=== PATIENT | female | born 1950 | race Two or more races ===

== ENCOUNTER 2017-08-21 08:51 | Emergency (ER) | payer MEDICARE, MEDICAID ==
[2017-08-21 09:08] VITALS: BP 170/85
[2017-08-21] MEDS ORDERED: Sodium Chloride 0.9% 10 ML Syringe FLUSH PRN (09:09)
[2017-08-21] MEDS ORDERED: Sodium Chloride 0.9% 2.5 ML Syringe FLUSH PRN (09:09)
[2017-08-21] MEDS ORDERED: Ketorolac 30 MG/ML SDV IVPUSH ONE (09:50)
[2017-08-21] MEDS ORDERED: Lactated Ringers 1,000 ML IV ONE (09:50)
--- NOTE | 2017-08-21 10:04 | CR ---
EXAMINATION: Left knee HISTORY: Pain COMPARISON: None TECHNIQUE: 3 views FINDINGS/IMPRESSION: Left total knee hardware is demonstrated in good position and alignment without evidence of loosening. There is no fracture or acute osseous abnormality demonstrated. Moderate to [place] suprapatellar joint effusion is noted.
[2017-08-21 10:11] LABS: CHLORIDE,CL 102 mmol/L (98-107); SODIUM,NA 139 mmol/L (136-145)
--- NOTE | 2017-08-21 10:49 | EDM.PDOC ---
ED HPI GENERAL MEDICAL PROBLEM - General Chief Complaint: Lower Extremity Injury/Pain Stated Complaint: FALL/L KNEE PAIN Time Seen by Provider: 08/21/17 09:11 Source of Information: Reports: Patient History Limitations: Reports: No Limitations - History of Present Illness INITIAL COMMENTS - FREE TEXT/NARRATIVE: History of present illness: []Patient was about to take a shower around 10 PM last night and woke up on the bathroom floor this morning hearing her stating it's 5:00. She is brought in by a friend complaining of left knee pain and no other complaints. His has not happened in the past patient denies any headache, neck pain or body aches. Review of systems: As per history of present illness and below otherwise all systems reviewed and negative. Past medical history: As per history of present illness and as reviewed below otherwise noncontributory. Surgical history: As per history of present illness and as reviewed below otherwise noncontributory. Social history: No reported history of drug or alcohol abuse. Family history: As per history of present illness and as reviewed below otherwise noncontributory. Physical exam: General: Well developed, well nourished in NAD HEENT: Atraumatic, normocephalic, pupils reactive, negative for conjunctival pallor or scleral icterus, mucous membranes moist, throat clear, neck supple, nontender, trachea midline. Lungs: Clear to auscultation, breath sounds equal bilaterally, chest nontender. Heart: S1S2, regular, negative for clicks, rubs, or JVD. Abdomen: Soft, nondistended, nontender. Negative for masses or hepatosplenomegaly. Negative for costovertebral tenderness. Pelvis: Stable nontender. Genitourinary: Deferred. Rectal: Deferred. Extremities: Atraumatic, negative for cords or calf pain. Neurovascular unremarkable. Neuro: Awake, alert, oriented. Cranial nerves II through XII unremarkable. Cerebellum unremarkable. Motor and sensory unremarkable throughout. Exam nonfocal. Diagnostics: []X-ray left knee negative, EKG paced rhythm no acute ischemia, CBC elevated white count 19,000 no shift, CPK 64, chemistry is normal, UA normal Therapeutics: []IV hydrated, Toradol for pain Impression: [] fAll, knee contusion left Plan: []Follow-up with primary care return if symptoms worsen Definitive disposition and diagnosis as appropriate pending reevaluation and review of above. Left Knee Pain Score (Numeric/FACES): 9 - Related Data Allergies Allergy/AdvReac Type Severity Reaction Status Date / Time codeine Allergy Intermediate Airway Verified 08/21/17 09:08 Tightness meperidine HCl [From Demerol] Allergy Intermediate Airway Verified 08/21/17 09: 08 Tightness morphine Allergy Intermediate Airway Verified 08/21/17 09:08 Tightness oxycodone [Oxycodone] Allergy Intermediate Airway Verified 08/21/17 09:08 Tightness orphenadrine Allergy Airway Verified 08/21/17 09:08 Tightness varenicline tartrate Allergy Airway Verified 08/21/17 09:08 [From Chantix] Tightness Home Meds: Home Meds DULoxetine HCl [Duloxetine HCl] 2 tab PO BEDTIME 12/22/13 [History] Gabapentin [Neurontin] 600 tab PO TID 12/22/13 [History] Apixaban [Eliquis] 1 tab PO BID 08/14/15 [History] Cyclobenzaprine HCl 1 tab PO TID 08/14/15 [History] Fluticasone/Salmeterol [Advair Diskus 500-50] 1 puff INH ASDIRECTED PRN [History] Ipratropium/Albuterol Sulfate [Combivent Respimat Inhal [place]] 1 puff INH ASDIRECTED PRN 08/14/15 [History] LORazepam 2 mg PO BEDTIME 08/14/15 [History] Levalbuterol Tartrate [Xopenex Hfa] 1 puff INH ASDIRECTED PRN 08/14/15 [History] Mometasone Furoate [Nasonex [place]] 1 spray NASBOTH ASDIRECTED PRN 08/14/15 [ History] diphenhydrAMINE HCl [Diphenhydramine HCl] 3 tab PO BEDTIME 08/14/15 [History] traMADol HCl [Ultram] 100 mg PO TID 08/14/15 [History] Acetaminophen/HYDROcodone [[place] 325-5 MG] 1 - 2 tab PO Q4H PRN #60 tablet 08/15 [Rx] Diltiazem HCl [Cardizem Cd] 360 mg PO DAILY 08/21/17 [History] Esomeprazole [NexIUM] 40 mg PO DAILY 08/21/17 [History] Levalbuterol Tartrate [Xopenex Hfa] 2 puff INH Q4H PRN 08/21/17 [History] Multivitamin [Multivitamins] 1 tab PO DAILY 08/21/17 [History] Spironolact/Hydrochlorothiazid [Aldactazide 25-25] 1 tab PO DAILY 08/21/17 [ History] Valsartan [Diovan] 320 mg PO DAILY 08/21/17 [History] Past Medical History HEENT History: Reports: Allergic Rhinitis, Impaired Vision, Other (See Below) Other HEENT History: wears reading glasses Cardiovascular History: Reports: Afib, High Cholesterol, Hypertension Respiratory History: Reports: Bronchitis, Recurrent, COPD, SOB, Other (See Below ) Other Respiratory History: was tested for sleep apnea last week, no results yet Gastrointestinal History: Reports: Cholelithiasis, GERD Genitourinary History: Reports: None 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 No residual weakness, no intervention done except physical therapy Psychiatric History: Reports: Bipolar, Depression Endocrine/Metabolic History: Reports: Obesity/BMI 30+, Other (See Below) Other Endocrine/Metabolic History: states has 2 "lumps" on thyroid as noted on ultrasound Hematologic History: Reports: None Immunologic History: Reports: None Oncologic (Cancer) History: Reports: None Dermatologic History: Reports: None - Infectious Disease History Infectious Disease History: Reports: Measles - Past Surgical History Head Surgeries/Procedures: Reports: None HEENT Surgical History: Reports: Cataract Surgery GI Surgical History: Reports: Bariatric Procedure, Cholecystectomy Female Surgical History: Reports: None Neurological Surgical History: Reports: None Musculoskeletal Surgical History: Reports: Hip Replacement, Knee Replacement, ORIF Social & Family History - Family History Family Medical History: Noncontributory - Tobacco Use Smoking Status *Q: Current Every Day Smoker Years of Tobacco use: 42 Packs/Tins Daily: 1 - Caffeine Use Caffeine Use: Reports: Coffee - Alcohol Use Days Per Week of Alcohol Use: 0 - Recreational Drug Use Recreational Drug Use: No Review of Systems - Review of Systems Review Of Systems: See Below (See history of present illness) ED EXAM, GENERAL - Physical Exam Exam: See Below (History of present illness) Course - Vital Signs Last Recorded V/S: Last Vital Signs Temp 97.8 F 08/21/17 09:05 Pulse 73 08/21/17 09:05 Resp 20 08/21/17 09:05 BP 170/85 H 08/21/17 09:05 Pulse Ox 95 08/21/17 09:05 - Orders/Labs/Meds Orders: Active Orders 24 hr Category Date Time Status EKG Documentation Completion [RC] STAT Care 08/21/17 09:08 Active UA W/MICROSCOPIC [URIN] Stat Lab 08/21/17 11:15 Ordered Sodium Chloride 0.9% [Saline Flush] Med 08/21/17 09:09 Active 10 ml FLUSH ASDIRECTED PRN Sodium Chloride 0.9% [Saline Flush] Med 08/21/17 09:09 Active 2.5 ml FLUSH ASDIRECTED PRN Saline Lock Insert [OM.PC] Stat Oth 08/21/17 09:08 Ordered Medication Orders Sodium Chloride (Saline Flush) 10 ml FLUSH ASDIRECTED PRN PRN Reason: Keep Vein Open Sodium Chloride (Saline Flush) 2.5 ml FLUSH ASDIRECTED PRN PRN Reason: Keep Vein Open Labs: Laboratory Tests 08/21/17 08/21/17 08/21/17 Range/Units 09:19 09:19 11:15 WBC 19.49 H (4.0-11.0) K/uL RBC 4.78 (4.30-5.90) M/uL Hgb 14.7 (12.0-16.0) g/dL Hct 44.1 (36.0-46.0) % MCV 92.3 (80.0-98.0) fL MCH 30.8 (27.0-32.0) pg MCHC 33.3 (31.0-37.0) g/dL RDW Std Deviation 47.0 (28.0-62.0) fl RDW Coeff of Brittny 14 (11.0-15.0) % Plt Count 311 (150-400) K/uL MPV 11.30 (7.40-12.00) fL Add Manual Diff YES Neutrophils % (Manual) 67 (48.0-80.0) % Band Neutrophils % 1 % Lymphocytes % (Manual) 22 (16.0-40.0) % Monocytes % (Manual) 8 (0.0-15.0) % Eosinophils % (Manual) 2 (0.0-7.0) % Nucleated RBC % 0.0 /100WBC Absolute Seg Neuts 13.1 H (1.4-5.7) Band Neutrophils # 0.2 Lymphocytes # (Manual) 4.3 H (0.6-2.4) Monocytes # (Manual) 1.6 H (0.0-0.8) Eosinophils # (Manual) 0.4 (0.0-0.7) Nucleated RBCs # 0 K/uL Sodium 139 (136-145) mmol/L Potassium 3.8 (3.5-5.1) mmol/L Chloride 102 (98-107) mmol/L Carbon Dioxide 28.2 (21.0-32.0) mmol/L BUN 16 (7.0-18.0) mg/dL Creatinine 0.8 (0.6-1.0) mg/dL Est Cr Clr Drug Dosing 57.22 mL/min Estimated GFR (MDRD) > 60.0 ml/min Glucose 92 (74-106) mg/dL Calcium 9.5 (8.5-10.1) mg/dL Total Bilirubin 0.4 (0.2-1.0) mg/dL AST 13 L (15-37) IU/L ALT 34 (14-63) IU/L Alkaline Phosphatase 153 H (46-116) U/L Creatine Kinase 64 (26-308) U/L Troponin I < 0.050 (0.000-0.056) ng/mL Total Protein 7.2 (6.4-8.2) g/dL Albumin 3.7 (3.4-5.0) g/dL Globulin 3.5 (2.0-3.5) g/dL Albumin/Globulin Ratio 1.1 L (1.3-2.8) Urine Color YELLOW Urine Appearance CLEAR Urine pH 6.0 (5.0-8.0) Ur Specific [place] 1.020 (1.001-1.035) Urine Protein NEGATIVE (NEGATIVE) mg/dL Urine Glucose (UA) NEGATIVE (NEGATIVE) mg/dL Urine Ketones NEGATIVE (NEGATIVE) mg/dL Urine Occult Blood NEGATIVE (NEGATIVE) Urine Nitrite NEGATIVE (NEGATIVE) Urine Bilirubin NEGATIVE (NEGATIVE) Urine Urobilinogen 0.2 (<2.0) EU/dL Ur Leukocyte Esterase NEGATIVE (NEGATIVE) Urine RBC 0-1 (0-2/HPF) Urine WBC 0-1 (0-5/HPF) Ur Epithelial Cells RARE (NONE-FEW) Urine Bacteria RARE (NEGATIVE) Meds: Medications Generic Name Dose Route Start Last Admin Trade Name Freq PRN Reason Stop Dose Admin Sodium Chloride 10 ml 08/21/17 09:09 Saline Flush FLUSH ASDIRECTED PRN Keep Vein Open Sodium Chloride 2.5 ml 08/21/17 09:09 Saline Flush FLUSH ASDIRECTED PRN Keep Vein Open Discontinued Medications Generic Name Dose Route Start Last Admin Trade Name Freq PRN Reason Stop Dose Admin Lactated Ringer's 1,000 mls @ 999 mls/hr 08/21/17 09:50 08/21/17 10:12 Ringers, Lactated IV 08/21/17 10:50 999 mls/hr .BOLUS ONE Administration Ketorolac Tromethamine 30 mg 08/21/17 09:50 08/21/17 10:13 Toradol IVPUSH 08/21/17 09:51 30 mg ONETIME ONE Administration Departure - Departure Time of Disposition: 12:03 Disposition: Home, Self-Care 01 Condition: Good Clinical Impression: Fall, Contusion of left knee - Discharge Information Referrals: Meghna Irby DO [Primary Care Provider] - Forms: ED Department Discharge Additional Instructions: The following information is given to patients seen in the emergency department who are being discharged to home. This information is to outline your options for follow-up care. We provide all patients seen in our emergency department with a follow-up referral. The need for follow-up, as well as the timing and circumstances, are variable depending upon the specifics of your emergency department visit. If you don't have a primary care physician on staff, we will provide you with a referral. We always advise you to contact your personal physician following an emergency department visit to inform them of the circumstance of the visit and for follow-up with them and/or the need for any referrals to a consulting specialist. The emergency department will also refer you to a specialist when appropriate. This referral assures that you have the opportunity for follow-up care with a specialist. All of these measure are taken in an effort to provide you with optimal care, which includes your follow-up. Under all circumstances we always encourage you to contact your private physician who remains a resource for coordinating your care. When calling for follow-up care, please make the office aware that this follow-up is from your recent emergency room visit. If for any reason you are refused follow-up, please contact the [facility] Emergency Department at and asked to speak to the emergency department charge nurse. [place] for pain ice to knee follow-up primary care return if symptoms worsen or change. [facility] [address] [place] [address] - My Orders Last 24 Hours: My Active Orders 08/21/17 09:08 EKG Documentation Completion [RC] STAT Saline Lock Insert [OM.PC] Stat 08/21/17 09:09 Sodium Chloride 0.9% [Saline Flush] 10 ml FLUSH ASDIRECTED PRN Sodium Chloride 0.9% [Saline Flush] 2.5 ml FLUSH ASDIRECTED PRN 08/21/17 11:15 UA W/MICROSCOPIC [URIN] Stat - Assessment/Plan Last 24 Hours: My Active Orders 08/21/17 09:08 EKG Documentation Completion [RC] STAT Saline Lock Insert [OM.PC] Stat 08/21/17 09:09 Sodium Chloride 0.9% [Saline Flush] 10 ml FLUSH ASDIRECTED PRN Sodium Chloride 0.9% [Saline Flush] 2.5 ml FLUSH ASDIRECTED PRN 08/21/17 11:15 UA W/MICROSCOPIC [URIN] Stat
== END 2017-08-21 12:28 | disposition home or self-care (01) ==
LOC: MW.ED 08:51
DX: S80.02XA Contusion of left knee, initial encounter (principal); E78.00 Pure hypercholesterolemia, unspecified; I10 Essential (primary) hypertension; K21.9 Gastro-esophageal reflux disease without esophagitis; E66.9 Obesity, unspecified; F17.210 Nicotine dependence, cigarettes, uncomplicated; Z88.5 Allergy status to narcotic agent; Z88.8 Allergy status to other drugs, medicaments and biological substances; Z79.899 Other long term (current) drug therapy; W18.30XA Fall on same level, unspecified, initial encounter
CPT/HCPCS: 36415; 73562-26-LT; 73562-LT; 80053; 81001; 82550; 84484; 85025; 93005; 96365; 96375; 99284-25; J1885; J7120

== ENCOUNTER 2019-09-07 10:52 | Inpatient (IN) | payer MEDICARE, MEDICAID ==
--- NOTE | 2019-09-07 11:08 | EDM.PDOC ---
ED HPI GENERAL MEDICAL PROBLEM - General Chief Complaint: Neurological Problem Stated Complaint: STROKE CODE Time Seen by Provider: 09/07/19 11:04 Source of Information: Reports: Patient History Limitations: Reports: No Limitations - History of Present Illness INITIAL COMMENTS - FREE TEXT/NARRATIVE: This is a 69-year-old female who presents to the emergency room after slipping out of her wheelchair and striking the back of her head. Patient has been progressively weak over the last 2 days. She denies any other problems Onset: Today Duration: Minutes: Location: Reports: Head, Lower Extremity, Right Severity: Moderate Improves with: Reports: None Worsens with: Reports: None Associated Symptoms: Reports: No Other Symptoms RIGHT HIP Pain Score (Numeric/FACES): 6 - Related Data Allergies Allergy/AdvReac Type Severity Reaction Status Date / Time codeine Allergy Intermediate Airway Verified 09/07/19 11:02 Tightness meperidine HCl [From Demerol] Allergy Intermediate Airway Verified 09/07/19 11: 02 Tightness morphine Allergy Intermediate Airway Verified 09/07/19 11:02 Tightness oxycodone [Oxycodone] Allergy Intermediate Airway Verified 09/07/19 11:02 Tightness orphenadrine Allergy Airway Verified 09/07/19 11:02 Tightness varenicline tartrate Allergy Airway Verified 09/07/19 11:02 [From Chantix] Tightness Home Meds: Home Meds DULoxetine HCl [Duloxetine HCl] 2 tab PO BEDTIME 12/22/13 [History] Gabapentin [Neurontin] 600 tab PO TID 12/22/13 [History] Apixaban [Eliquis] 1 tab PO BID 08/14/15 [History] Cyclobenzaprine HCl 1 tab PO TID 08/14/15 [History] Fluticasone/Salmeterol [Advair Diskus 500-50] 1 puff INH ASDIRECTED PRN [History] Ipratropium/Albuterol Sulfate [Combivent Respimat 20-100 Mcg] 1 puff INH ASDIRECTED PRN 08/14/15 [History] LORazepam 2 mg PO BEDTIME 08/14/15 [History] Levalbuterol Tartrate [Xopenex Hfa] 1 puff INH ASDIRECTED PRN 08/14/15 [History] Mometasone Furoate [Nasonex [place]] 1 spray NASBOTH ASDIRECTED PRN 08/14/15 [ History] diphenhydrAMINE HCL [Diphenhydramine HCl] 3 tab PO BEDTIME 08/14/15 [History] traMADol HCl [Ultram] 100 mg PO TID 08/14/15 [History] Acetaminophen/HYDROcodone [[place] 325-5 MG] 1 - 2 tab PO Q4H PRN #60 tablet 08/15 [Rx] Diltiazem HCl [Cardizem Cd] 360 mg PO DAILY 08/21/17 [History] Esomeprazole [NexIUM] 40 mg PO DAILY 08/21/17 [History] Levalbuterol Tartrate [Xopenex Hfa] 2 puff INH Q4H PRN 08/21/17 [History] Multivitamin [Multivitamins] 1 tab PO DAILY 08/21/17 [History] Spironolact/Hydrochlorothiazid [Aldactazide 25-25] 1 tab PO DAILY 08/21/17 [ History] Valsartan [Diovan] 320 mg PO DAILY 08/21/17 [History] Past Medical History HEENT History: Reports: Allergic Rhinitis, Impaired Vision, Other (See Below) Other HEENT History: wears reading glasses Cardiovascular History: Reports: Afib, High Cholesterol, Hypertension Respiratory History: Reports: Bronchitis, Recurrent, COPD, SOB, Other (See Below ) Other Respiratory History: was tested for sleep apnea last week, no results yet Gastrointestinal History: Reports: Cholelithiasis, GERD Genitourinary History: Reports: None [employer] History: Reports: None Musculoskeletal History: Reports: Arthritis, Fracture, Osteoporosis Other Musculoskeletal History: states chronic back and right hip pain, hx of fx right wrist and right tib-fib, wheelchair bound due to hip pain and major SOB Neurological History: Reports: TIA Other Neuro History: has has TIA x2, 2009 and 2013. No residual weakness, no intervention done except physical therapy Psychiatric History: Reports: Bipolar, Depression Endocrine/Metabolic History: Reports: Obesity/BMI 30+, Other (See Below) Other Endocrine/Metabolic History: states has 2 "lumps" on thyroid as noted on ultrasound Hematologic History: Reports: None Immunologic History: Reports: None Oncologic (Cancer) History: Reports: None Dermatologic History: Reports: None - Infectious Disease History Infectious Disease History: Reports: Measles - Past Surgical History Head Surgeries/Procedures: Reports: None HEENT Surgical History: Reports: Cataract Surgery GI Surgical History: Reports: Bariatric Procedure, Cholecystectomy Female Surgical History: Reports: None Neurological Surgical History: Reports: None Musculoskeletal Surgical History: Reports: Hip Replacement, Knee Replacement, ORIF Social & Family History - Family History Family Medical History: Noncontributory - Caffeine Use Caffeine Use: Reports: Coffee ED ROS GENERAL - Review of Systems Review Of Systems: See Below Constitutional: Reports: No Symptoms HEENT: Reports: No Symptoms Respiratory: Reports: No Symptoms Cardiovascular: Reports: No Symptoms Endocrine: Reports: No Symptoms GI/Abdominal: Reports: No Symptoms : Reports: No Symptoms Musculoskeletal: Reports: No Symptoms Skin: Reports: No Symptoms Neurological: Reports: Headache Psychiatric: Reports: No Symptoms Hematologic/Lymphatic: Reports: No Symptoms Immunologic: Reports: No Symptoms - Physical Exam Exam: See Below Exam Limited By: No Limitations General Appearance: Alert, WD/WN, No Apparent Distress Eye Exam: Bilateral Eye: Normal Fundi, Normal Inspection Ears: Normal External Exam, Normal Canal, Hearing Grossly Normal, Normal TMs Nose: Normal Inspection, Normal Mucosa, No Blood Throat/Mouth: Normal Inspection, Normal Lips, Normal Teeth, Normal Oropharynx, Normal Voice, No Airway Compromise Head Exam: Atraumatic, Normocephalic Neck: Normal Inspection, Supple, Non-Tender Respiratory/Chest: No Respiratory Distress, Lungs Clear, Normal Breath Sounds, No Accessory Muscle Use Cardiovascular: Normal Peripheral Pulses, Regular Rate, Rhythm, No Edema, No Gallop, No JVD, No Murmur GI/Abdominal: Normal Bowel Sounds, Soft, Non-Tender, No Distention, No Abnormal Bruit Rectal (Female) Exam: Deferred Neuro Exam (Abbreviated): Alert, Oriented, CN II-XII Intact, Normal Cognition, Normal Reflexes, No Motor/Sensory Deficits Back Exam: Normal Inspection, Full Range of Motion Extremities: Normal Inspection, Normal Range of Motion, No Pedal Edema, Normal Capillary Refill Psychiatric: Normal Affect, Normal Mood Skin Exam: Warm, Dry, Intact, Normal Color EKG INTERPRETATION Rhythm: NSR (Atrial paced rhythm, LVH with secondary re-pole, no evidence of acute FL.) [place]: Normal QRS: Normal ST-T: Normal QT: Normal Course - Vital Signs Text/Narrative:: 68-year-old female initially came in for possible syncope/patient fell while in a wheelchair struck her bottom and struck her head. Patient states she feels weak. Patient found to have urinary tract infection. Patient is somewhat dehydrated. Patient will be admitted to telemetry obvious with a depth diagnosis of near syncope/UTI/dehydration. I have talking to Dr. Borrego. Patient will be admitted with IV antibiotics and fluids and blood cultures Last Recorded V/S: Last Vital Signs Temp 96.6 F L 09/07/19 10:57 Pulse 62 09/07/19 12:07 Resp 16 09/07/19 12:07 BP 117/76 09/07/19 12:07 Pulse Ox 96 09/07/19 12:07 - Orders/Labs/Meds Orders: Active Orders 24 hr Category Date Time Status EKG Documentation Completion [RC] STAT Care 09/07/19 10:55 Active CULTURE BLOOD [BC] Stat Lab 09/07/19 13:53 Ordered CULTURE BLOOD [BC] Stat Lab 09/07/19 13:53 Ordered CULTURE URINE [RM] Stat Lab 09/07/19 13:00 Received Sodium Chloride 0.9% [Normal Saline] 1,000 ml Med 09/07/19 14:00 Active IV ASDIRECTED cefTRIAXone [Rocephin] 1 gm Med 09/07/19 13:49 Active Sodium Chloride 0.9% [Normal Saline] 50 ml IV ONETIME Blood Culture x2 Reflex Set [OM.PC] Stat Oth 09/07/19 13:53 Ordered Medication Orders Ceftriaxone Sodium 1 gm/ (Sodium Chloride) 50 mls @ 200 mls/hr IV ONETIME ONE Stop: 09/07/19 14:03 Sodium Chloride (Normal Saline) 1,000 mls @ 150 mls/hr IV ASDIRECTED [facility] Labs: Laboratory Tests 09/07/19 09/07/19 09/07/19 Range/Units 11:07 11:07 11:07 WBC 11.90 H (4.0-11.0) K/uL RBC 4.50 (4.30-5.90) M/uL Hgb 13.6 (12.0-16.0) g/dL Hct 42.1 (36.0-46.0) % MCV 93.6 (80.0-98.0) fL MCH 30.2 (27.0-32.0) pg MCHC 32.3 (31.0-37.0) g/dL RDW Std Deviation 47.2 (28.0-62.0) fl RDW Coeff of Brittny 14 (11.0-15.0) % Plt Count 322 (150-400) K/uL MPV 11.00 (7.40-12.00) fL Neut % (Auto) 58.6 (48.0-80.0) % Lymph % (Auto) 30.6 (16.0-40.0) % [place] % (Auto) 8.9 (0.0-15.0) % Eos % (Auto) 1.5 (0.0-7.0) % Baso % (Auto) 0.4 (0.0-1.5) % Neut # (Auto) 7.0 H (1.4-5.7) K/uL Lymph # (Auto) 3.6 H (0.6-2.4) K/uL [place] # (Auto) 1.1 H (0.0-0.8) K/uL Eos # (Auto) 0.2 (0.0-0.7) K/uL Baso # (Auto) 0.1 (0.0-0.1) K/uL Nucleated RBC % 0.0 /100WBC Nucleated RBCs # 0 K/uL INR 1.01 Sodium 132 L (136-145) mmol/L Potassium 5.1 (3.5-5.1) mmol/L Chloride 98 (98-107) mmol/L Carbon Dioxide 23.3 (21.0-32.0) mmol/L BUN 40 H (7.0-18.0) mg/dL Creatinine 3.1 H (0.6-1.0) mg/dL Est Cr Clr Drug Dosing 16.26 mL/min Estimated GFR (MDRD) 14.9 ml/min Glucose 121 H (74-106) mg/dL Calcium 8.9 (8.5-10.1) mg/dL Magnesium (1.8-2.4) mg/dL Total Bilirubin 0.4 (0.2-1.0) mg/dL AST 24 (15-37) IU/L ALT 33 (14-63) IU/L Alkaline Phosphatase 158 H (46-116) U/L Troponin I < 0.050 (0.000-0.056) ng/mL Total Protein 7.6 (6.4-8.2) g/dL Albumin 3.4 (3.4-5.0) g/dL Globulin 4.2 H (2.6-4.0) g/dL Albumin/Globulin Ratio 0.8 L (0.9-1.6) Urine Color Urine Appearance Urine pH (5.0-8.0) Ur Specific [place] (1.001-1.035) Urine Protein (NEGATIVE) mg/dL Urine Glucose (UA) (NEGATIVE) mg/dL Urine Ketones (NEGATIVE) mg/dL Urine Occult Blood (NEGATIVE) Urine Nitrite (NEGATIVE) Urine Bilirubin (NEGATIVE) Urine Urobilinogen (<2.0) EU/dL Ur Leukocyte Esterase (NEGATIVE) U Hyaline Cast (Auto) (0-2/LPF) Urine RBC (0-2/HPF) Urine WBC (0-5/HPF) Ur Epithelial Cells (NONE-FEW) Amorphous Sediment (NEGATIVE) Urine Bacteria (NEGATIVE) Urine Mucus (NONE-MOD) 09/07/19 09/07/19 Range/Units 11:07 13:00 WBC (4.0-11.0) K/uL RBC (4.30-5.90) M/uL Hgb (12.0-16.0) g/dL Hct (36.0-46.0) % MCV (80.0-98.0) fL MCH (27.0-32.0) pg MCHC (31.0-37.0) g/dL RDW Std Deviation (28.0-62.0) fl RDW Coeff of Brittny (11.0-15.0) % Plt Count (150-400) K/uL MPV (7.40-12.00) fL Neut % (Auto) (48.0-80.0) % Lymph % (Auto) (16.0-40.0) % [place] % (Auto) (0.0-15.0) % Eos % (Auto) (0.0-7.0) % Baso % (Auto) (0.0-1.5) % Neut # (Auto) (1.4-5.7) K/uL Lymph # (Auto) (0.6-2.4) K/uL [place] # (Auto) (0.0-0.8) K/uL Eos # (Auto) (0.0-0.7) K/uL Baso # (Auto) (0.0-0.1) K/uL Nucleated RBC % /100WBC Nucleated RBCs # K/uL INR Sodium (136-145) mmol/L Potassium (3.5-5.1) mmol/L Chloride (98-107) mmol/L Carbon Dioxide (21.0-32.0) mmol/L BUN (7.0-18.0) mg/dL Creatinine (0.6-1.0) mg/dL Est Cr Clr Drug Dosing mL/min Estimated GFR (MDRD) ml/min Glucose (74-106) mg/dL Calcium (8.5-10.1) mg/dL Magnesium 2.1 (1.8-2.4) mg/dL Total Bilirubin (0.2-1.0) mg/dL AST (15-37) IU/L ALT (14-63) IU/L Alkaline Phosphatase (46-116) U/L Troponin I (0.000-0.056) ng/mL Total Protein (6.4-8.2) g/dL Albumin (3.4-5.0) g/dL Globulin (2.6-4.0) g/dL Albumin/Globulin Ratio (0.9-1.6) Urine Color YELLOW Urine Appearance SLT CLOUDY Urine pH 5.5 (5.0-8.0) Ur Specific [place] 1.025 (1.001-1.035) Urine Protein NEGATIVE (NEGATIVE) mg/dL Urine Glucose (UA) NEGATIVE (NEGATIVE) mg/dL Urine Ketones NEGATIVE (NEGATIVE) mg/dL Urine Occult Blood NEGATIVE (NEGATIVE) Urine Nitrite NEGATIVE (NEGATIVE) Urine Bilirubin NEGATIVE (NEGATIVE) Urine Urobilinogen 0.2 (<2.0) EU/dL Ur Leukocyte Esterase TRACE H (NEGATIVE) U Hyaline Cast (Auto) 0-2 (0-2/LPF) Urine RBC 0-2 (0-2/HPF) Urine WBC 5-8 (0-5/HPF) Ur Epithelial Cells MODERATE (NONE-FEW) Amorphous Sediment MODERATE (NEGATIVE) Urine Bacteria 3+ H (NEGATIVE) Urine Mucus LIGHT (NONE-MOD) Meds: Medications Generic Name Dose Route Start Last Admin Trade Name Freq PRN Reason Stop Dose Admin Ceftriaxone Sodium 1 gm/ 50 mls @ 200 mls/hr 09/07/19 13:49 Sodium Chloride IV 09/07/19 14:03 ONETIME ONE Sodium Chloride 1,000 mls @ 150 mls/hr 09/07/19 14:00 Normal Saline IV ASDIRECTED [facility] Departure - Departure Time of Disposition: 13:56 Disposition: Refer to Observation Condition: Fair Clinical Impression: Dehydration, moderate, Urinary tract infection, Near syncope - Discharge Information Forms: ED Department Discharge Sepsis Event Note - Evaluation Sepsis Screening Result: No Definite Risk - Focused Exam Vital Signs: Vital Signs Temp Pulse Resp BP Pulse Ox 09/07/19 12:07 62 16 117/76 96 09/07/19 10:57 96.6 F L 62 16 139/80 95 Date Exam was Performed: 09/07/19 Time Exam was Performed: 13:54 - My Orders Last 24 Hours: My Active Orders 09/07/19 10:55 EKG Documentation Completion [RC] STAT 09/07/19 13:00 CULTURE URINE [RM] Stat 09/07/19 13:49 cefTRIAXone [Rocephin] 1 gm Sodium Chloride 0.9% [Normal Saline] 50 ml IV ONETIME 09/07/19 13:53 CULTURE BLOOD [BC] Stat CULTURE BLOOD [BC] Stat Blood Culture x2 Reflex Set [OM.PC] Stat 09/07/19 14:00 Sodium Chloride 0.9% [Normal Saline] 1,000 ml IV ASDIRECTED - Assessment/Plan Last 24 Hours: My Active Orders 09/07/19 10:55 EKG Documentation Completion [RC] STAT 09/07/19 13:00 CULTURE URINE [RM] Stat 09/07/19 13:49 cefTRIAXone [Rocephin] 1 gm Sodium Chloride 0.9% [Normal Saline] 50 ml IV ONETIME 09/07/19 13:53 CULTURE BLOOD [BC] Stat CULTURE BLOOD [BC] Stat Blood Culture x2 Reflex Set [OM.PC] Stat 09/07/19 14:00 Sodium Chloride 0.9% [Normal Saline] 1,000 ml IV ASDIRECTED
[2019-09-07 12:01] LABS: BLOOD UREA NITROGEN,BUN 40 mg/dL (7.0-18.0); CARBON DIOXIDE,CO2 23.3 mmol/L (21.0-32.0); CHLORIDE,CL 98 mmol/L (98-107); GLUCOSE RANDOM 121 mg/dL (74-106); POTASSIUM,K 5.1 mmol/L (3.5-5.1); SODIUM,NA 132 mmol/L (136-145)
--- NOTE | 2019-09-07 12:09 | CR ---
Chest: Portable view of the chest was obtained. Comparison: No previous chest imaging is available. Heart size is normal. Upper mediastinum is within normal limits. Pacemaker is noted. Slight scarring or atelectasis is noted within the left base. Lungs otherwise are clear. Bony structures are grossly intact. Impression: 1. Atelectasis or scarring within the left lung base. 2. Pacemaker. 3. Nothing acute is appreciated. Diagnostic code #3 This report was dictated in MDT
--- NOTE | 2019-09-07 12:09 | CT ---
Head CT Technique: Multiple axial sections through the brain were obtained. Intravenous contrast was not utilized. Comparison: Prior head CT study of 09/02/17. Findings: Ventricles are moderately dilated. Sulci over the convexities are mildly prominent. Findings are felt compatible with stable atrophy with greater central component. No abnormal parenchymal densities are seen. No evidence of intracranial hemorrhage. No midline shift or mass-effect is seen. Bone window settings were reviewed. Visualized mastoid sinuses show nothing acute. Visualized paranasal sinuses show nothing acute. No acute calvarial abnormality is appreciated. Impression: 1. Generalized atrophy with greater central component. 2. No acute intracranial abnormality is appreciated. No significant change is appreciated from prior head CT study. Diagnostic code #2 This report was dictated in MDT
--- NOTE | 2019-09-07 12:09 | CR ---
Right hip: AP and very slight frog-leg lateral view of the right hip was obtained. Comparison: Previous pelvis and right hip exam of 11/25/17. Right hip prosthesis is seen which has a long prosthetic stem. No hardware fracture is appreciated. Bony structures are osteopenic. No acute bony abnormality is appreciated. Lucency is noted at the glue bone interface proximally which is believed to be due to chronic postsurgical change and of no acute significance. Impression: 1. Right hip prosthesis as described above. 2. Nothing acute is appreciated. Diagnostic code #2 This report was dictated in MDT
[2019-09-07] MEDS ORDERED: cefTRIAXone 1 GM in Sodium Chloride 0.9% 50 ML IV ONE (13:49)
[2019-09-07] MEDS ORDERED: Sodium Chloride 0.9% 1,000 ML IV SCH (14:00)
[2019-09-07] MEDS ORDERED: Ondansetron 4 MG/2 ML SDV IVPUSH PRN (15:02)
[2019-09-07] MEDS ORDERED: Albuterol/Ipratropium 3.0-0.5 MG/3 ML Neb Soln NEB PRN (15:35)
[2019-09-07] MEDS: Sodium Chloride 0.9% 1,000 ML IV SCH (15:36)
[2019-09-07] MEDS: cefTRIAXone 1 GM in Premix Bag 1 BAG IV SCH (15:37)
[2019-09-07] MEDS ORDERED: Acetaminophen 325 MG Tab PO PRN (15:41)
--- NOTE | 2019-09-07 15:43 | PCM.HP.2 ---
H&P History of Present Illness - General Date of Service: 09/07/19 Admit Problem/Dx: Admission Diagnosis/Problem Admission Diagnosis/Problem Urinary tract infection - History of Present Illness Initial Comments - Free Text/Narative: Patient is a 69 y/o F with PMH of HTN, TIA, Hip replacement, thyroid nodules, diverticulosis, comes in after an epiosde of pre-syncope. Reportedly patient fell from her wheelchair and hit her head. in the ER, CT scan head didn't show any acute stroke, troponin was negative, labs were significant for KEVAN and UA showed UTI. Right hip xray was negative for fracture. Patient is being admitted to hospital for further management. Patient was lethargic during my encounter and couldn't contribute much to history. RIGHT HIP Pain Score (Numeric/FACES): 6 - Related Data Allergies/Adverse Reactions: Allergies Allergy/AdvReac Type Severity Reaction Status Date / Time codeine Allergy Intermediate Airway Verified 09/07/19 11:02 Tightness meperidine HCl [From Demerol] Allergy Intermediate Airway Verified 09/07/19 11: 02 Tightness morphine Allergy Intermediate Airway Verified 09/07/19 11:02 Tightness oxycodone [Oxycodone] Allergy Intermediate Airway Verified 09/07/19 11:02 Tightness orphenadrine Allergy Airway Verified 09/07/19 11:02 Tightness varenicline tartrate Allergy Airway Verified 09/07/19 11:02 [From Chantix] Tightness Home Medications: Home Meds DULoxetine HCl [Duloxetine HCl] 120 mg PO BEDTIME 12/22/13 [History] Gabapentin [Neurontin] 600 tab PO TID 12/22/13 [History] Apixaban [Eliquis] 5 mg PO BID 08/14/15 [History] Cyclobenzaprine HCl 5 mg PO QID PRN 08/14/15 [History] LORazepam 2 mg PO TID PRN 08/14/15 [History] traMADol HCl [Ultram] 100 mg PO BID PRN 08/14/15 [History] Esomeprazole [NexIUM] 40 mg PO DAILY 08/21/17 [History] Spironolact/Hydrochlorothiazid [Aldactazide 25-25] 2 tab PO DAILY 08/21/17 [ History] dilTIAZem HCL [Cardizem Cd] 360 mg PO DAILY 08/21/17 [History] Hydrocodone/Acetaminophen [[place] 10-325 Tablet] 10 - 325 mg PO 6XDAY PRN [History] Olmesartan Medoxomil 40 mg PO DAILY 09/07/19 [History] hydrOXYzine pamoate [Hydroxyzine Pamoate] 25 mg PO TID PRN 09/07/19 [History] Past Medical History HEENT History: Reports: Allergic Rhinitis, Impaired Vision, Other (See Below) Other HEENT History: wears reading glasses Cardiovascular History: Reports: Afib, High Cholesterol, Hypertension Respiratory History: Reports: Bronchitis, Recurrent, COPD, SOB, Other (See Below ) Other Respiratory History: was tested for sleep apnea last week, no results yet Gastrointestinal History: Reports: Cholelithiasis, GERD Genitourinary History: Reports: None MONEY COUNTER History: Reports: None Musculoskeletal History: Reports: Arthritis, Fracture, Osteoporosis Other Musculoskeletal History: states chronic back and right hip pain, hx of fx right wrist and right tib-fib, wheelchair bound due to hip pain and major SOB Neurological History: Reports: TIA Other Neuro History: has has TIA x2, 2009 and 2013. No residual weakness, no intervention done except physical therapy Psychiatric History: Reports: Bipolar, Depression Endocrine/Metabolic History: Reports: Obesity/BMI 30+, Other (See Below) Other Endocrine/Metabolic History: states has 2 "lumps" on thyroid as noted on ultrasound Hematologic History: Reports: None Immunologic History: Reports: None Oncologic (Cancer) History: Reports: None Dermatologic History: Reports: None - Infectious Disease History Infectious Disease History: Reports: Measles - Past Surgical History Head Surgeries/Procedures: Reports: None HEENT Surgical History: Reports: Cataract Surgery GI Surgical History: Reports: Bariatric Procedure, Cholecystectomy Female Surgical History: Reports: None Neurological Surgical History: Reports: None Musculoskeletal Surgical History: Reports: Hip Replacement, Knee Replacement, ORIF Social & Family History - Family History Family Medical History: Noncontributory - Tobacco Use Smoking Status *Q: Current Every Day Smoker Years of Tobacco use: 50 Packs/Tins Daily: 1 - Caffeine Use Caffeine Use: Reports: Coffee H&P Review of Systems - Review of Systems: Review Of Systems: Unable To Obtain Reason Not Obtained: somnolence, unable to contribute to history Exam - Exam Exam: See Below - Vital Signs Vital Signs: Last Vital Signs Temp 35.9 C L 09/07/19 10:57 Pulse 65 09/07/19 14:00 Resp 16 09/07/19 14:00 BP 131/62 09/07/19 14:00 Pulse Ox 96 09/07/19 14:00 Weight: 81.647 kg - Exam General: Mild Distress, Lethargic. No: Alert, Oriented Neck: Trachea Midline Lungs: Normal Respiratory Effort. No: Decreased Breath Sounds, Rales, Rhonchi Cardiovascular: Regular Rate, Regular Rhythm GI/Abdominal Exam: Normal Bowel Sounds, Soft, Non-Tender Back Exam: Decreased Range of Motion Extremities: Limited Range of Motion Skin: Dry - Patient Data Lab Results Last 24 hrs: Laboratory Results - last 24 hr 09/07/19 09/07/19 09/07/19 Range/Units 11:07 11:07 11:07 WBC 11.90 H (4.0-11.0) K/uL RBC 4.50 (4.30-5.90) M/uL Hgb 13.6 (12.0-16.0) g/dL Hct 42.1 (36.0-46.0) % MCV 93.6 (80.0-98.0) fL MCH 30.2 (27.0-32.0) pg MCHC 32.3 (31.0-37.0) g/dL RDW Std Deviation 47.2 (28.0-62.0) fl RDW Coeff of Brittny 14 (11.0-15.0) % Plt Count 322 (150-400) K/uL MPV 11.00 (7.40-12.00) fL Neut % (Auto) 58.6 (48.0-80.0) % Lymph % (Auto) 30.6 (16.0-40.0) % [place] % (Auto) 8.9 (0.0-15.0) % Eos % (Auto) 1.5 (0.0-7.0) % Baso % (Auto) 0.4 (0.0-1.5) % Neut # (Auto) 7.0 H (1.4-5.7) K/uL Lymph # (Auto) 3.6 H (0.6-2.4) K/uL [place] # (Auto) 1.1 H (0.0-0.8) K/uL Eos # (Auto) 0.2 (0.0-0.7) K/uL Baso # (Auto) 0.1 (0.0-0.1) K/uL Nucleated RBC % 0.0 /100WBC Nucleated RBCs # 0 K/uL INR 1.01 Sodium 132 L (136-145) mmol/L Potassium 5.1 (3.5-5.1) mmol/L Chloride 98 (98-107) mmol/L Carbon Dioxide 23.3 (21.0-32.0) mmol/L BUN 40 H (7.0-18.0) mg/dL Creatinine 3.1 H (0.6-1.0) mg/dL Est Cr Clr Drug Dosing 16.26 mL/min Estimated GFR (MDRD) 14.9 ml/min Glucose 121 H (74-106) mg/dL POC Glucose (60-110) mg/dL Calcium 8.9 (8.5-10.1) mg/dL Magnesium (1.8-2.4) mg/dL Total Bilirubin 0.4 (0.2-1.0) mg/dL AST 24 (15-37) IU/L ALT 33 (14-63) IU/L Alkaline Phosphatase 158 H (46-116) U/L Troponin I < 0.050 (0.000-0.056) ng/mL Total Protein 7.6 (6.4-8.2) g/dL Albumin 3.4 (3.4-5.0) g/dL Globulin 4.2 H (2.6-4.0) g/dL Albumin/Globulin Ratio 0.8 L (0.9-1.6) Urine Color Urine Appearance Urine pH (5.0-8.0) Ur Specific [place] (1.001-1.035) Urine Protein (NEGATIVE) mg/dL Urine Glucose (UA) (NEGATIVE) mg/dL Urine Ketones (NEGATIVE) mg/dL Urine Occult Blood (NEGATIVE) Urine Nitrite (NEGATIVE) Urine Bilirubin (NEGATIVE) Urine Urobilinogen (<2.0) EU/dL Ur Leukocyte Esterase (NEGATIVE) U Hyaline Cast (Auto) (0-2/LPF) Urine RBC (0-2/HPF) Urine WBC (0-5/HPF) Ur Epithelial Cells (NONE-FEW) Amorphous Sediment (NEGATIVE) Urine Bacteria (NEGATIVE) Urine Mucus (NONE-MOD) 09/07/19 09/07/19 09/07/19 Range/Units 11:07 13:00 15:24 WBC (4.0-11.0) K/uL RBC (4.30-5.90) M/uL Hgb (12.0-16.0) g/dL Hct (36.0-46.0) % MCV (80.0-98.0) fL MCH (27.0-32.0) pg MCHC (31.0-37.0) g/dL RDW Std Deviation (28.0-62.0) fl RDW Coeff of Brittny (11.0-15.0) % Plt Count (150-400) K/uL MPV (7.40-12.00) fL Neut % (Auto) (48.0-80.0) % Lymph % (Auto) (16.0-40.0) % [place] % (Auto) (0.0-15.0) % Eos % (Auto) (0.0-7.0) % Baso % (Auto) (0.0-1.5) % Neut # (Auto) (1.4-5.7) K/uL Lymph # (Auto) (0.6-2.4) K/uL [place] # (Auto) (0.0-0.8) K/uL Eos # (Auto) (0.0-0.7) K/uL Baso # (Auto) (0.0-0.1) K/uL Nucleated RBC % /100WBC Nucleated RBCs # K/uL INR Sodium (136-145) mmol/L Potassium (3.5-5.1) mmol/L Chloride (98-107) mmol/L Carbon Dioxide (21.0-32.0) mmol/L BUN (7.0-18.0) mg/dL Creatinine (0.6-1.0) mg/dL Est Cr Clr Drug Dosing mL/min Estimated GFR (MDRD) ml/min Glucose (74-106) mg/dL POC Glucose 89 (60-110) mg/dL Calcium (8.5-10.1) mg/dL Magnesium 2.1 (1.8-2.4) mg/dL Total Bilirubin (0.2-1.0) mg/dL AST (15-37) IU/L ALT (14-63) IU/L Alkaline Phosphatase (46-116) U/L Troponin I (0.000-0.056) ng/mL Total Protein (6.4-8.2) g/dL Albumin (3.4-5.0) g/dL Globulin (2.6-4.0) g/dL Albumin/Globulin Ratio (0.9-1.6) Urine Color YELLOW Urine Appearance SLT CLOUDY Urine pH 5.5 (5.0-8.0) Ur Specific [place] 1.025 (1.001-1.035) Urine Protein NEGATIVE (NEGATIVE) mg/dL Urine Glucose (UA) NEGATIVE (NEGATIVE) mg/dL Urine Ketones NEGATIVE (NEGATIVE) mg/dL Urine Occult Blood NEGATIVE (NEGATIVE) Urine Nitrite NEGATIVE (NEGATIVE) Urine Bilirubin NEGATIVE (NEGATIVE) Urine Urobilinogen 0.2 (<2.0) EU/dL Ur Leukocyte Esterase TRACE H (NEGATIVE) U Hyaline Cast (Auto) 0-2 (0-2/LPF) Urine RBC 0-2 (0-2/HPF) Urine WBC 5-8 (0-5/HPF) Ur Epithelial Cells MODERATE (NONE-FEW) Amorphous Sediment MODERATE (NEGATIVE) Urine Bacteria 3+ H (NEGATIVE) Urine Mucus LIGHT (NONE-MOD) Result Diagrams: 09/07/19 11:07 09/07/19 11:07 Mohit Results Last 24 hrs: Microbiology 09/07/19 14:28 Anaerobic Blood Culture - Final Blood - Venous Sepsis Event Note - Evaluation Sepsis Screening Result: No Definite Risk - Focused Exam Vital Signs: Vital Signs Temp Pulse Resp BP Pulse Ox 09/07/19 14:00 65 16 131/62 96 09/07/19 13:00 69 16 113/66 96 09/07/19 12:07 62 16 117/76 96 09/07/19 10:57 35.9 C L 62 16 139/80 95 Date Exam was Performed: 09/07/19 Time Exam was Performed: 17:59 - Problem List (1) KEVAN (acute kidney injury) SNOMED Code(s): 57177048, 31325470 ICD Code: N17.9 - ACUTE KIDNEY FAILURE, UNSPECIFIED Status: Acute Current Visit: Yes (2) Near syncope SNOMED Code(s): 361201404 ICD Code: R55 - SYNCOPE AND COLLAPSE Status: Acute Current Visit: Yes (3) Dehydration SNOMED Code(s): 20290794 ICD Code: E86.0 - DEHYDRATION Status: Acute Current Visit: Yes (4) Fall SNOMED Code(s): 4910055, 206295845 ICD Code: W19.XXXA - UNSPECIFIED FALL, INITIAL ENCOUNTER Status: Acute Current Visit: No (5) Urinary tract infection SNOMED Code(s): 19864153 ICD Code: N39.0 - URINARY TRACT INFECTION, SITE NOT SPECIFIED Status: Acute Current Visit: Yes Problem List Initiated/Reviewed/Updated: Yes Orders Last 24hrs: Active Orders 24 hr Category Date Time Status Patient Status [ADT] Stat ADT 09/07/19 14:52 Active Ambulate [RC] ASDIRECTED Care 09/07/19 15:02 Active EKG Documentation Completion [RC] STAT Care 09/07/19 10:55 Active Oxygen Therapy [RC] PRN Care 09/07/19 15:02 Active RT Aerosol Therapy [RC] ASDIRECTED Care 09/07/19 15:36 Active VTE/DVT Education [RC] PER UNIT ROUTINE Care 09/07/19 15:02 Active Vital Signs [RC] Q4H Care 09/07/19 15:02 Active Clear Liquid Diet [DIET] Diet 09/07/19 Dinner Active BMP [BASIC METABOLIC PANEL,BMP] [CHEM] AM Lab 09/08/19 05:11 Ordered CBC WITH AUTO DIFF [HEME] AM Lab 09/08/19 05:11 Ordered CULTURE BLOOD [BC] Stat Lab 09/07/19 14:28 Results CULTURE BLOOD [BC] Stat Lab 09/07/19 14:38 Received CULTURE URINE [RM] Stat Lab 09/07/19 13:00 Received MAGNESIUM [CHEM] AM Lab 09/08/19 05:11 Ordered PHOSPHORUS [CHEM] AM Lab 09/08/19 05:11 Ordered Acetaminophen [Tylenol] Med 09/07/19 15:41 Ordered 325 mg PO Q4H PRN Albuterol/Ipratropium [DuoNeb 3.0-0.5 MG/3 ML] Med 09/07/19 15:35 Active 3 ml NEB Q4HRRT PRN Ondansetron [Zofran] Med 09/07/19 15:02 Active 4 mg IVPUSH Q4H PRN Sodium Chloride 0.9% [Normal Saline] 1,000 ml Med 09/07/19 14:00 Active IV ASDIRECTED Sodium Chloride 0.9% [Normal Saline] 1,000 ml Med 09/07/19 15:15 Active IV ASDIRECTED cefTRIAXone [Rocephin in Dextrose,Iso-Osm 1 GM/50 ML] 1 Med 09/07/19 15:30 Active gm Premix Bag 1 bag IV Q24H Blood Culture x2 Reflex Set [OM.PC] Stat Oth 09/07/19 13:53 Ordered Medication Orders Acetaminophen (Tylenol) 325 mg PO Q4H PRN PRN Reason: Pain Albuterol/Ipratropium (Duoneb 3.0-0.5 Mg/3 Ml) 3 ml NEB Q4HRRT PRN PRN Reason: Shortness of Breath Sodium Chloride (Normal Saline) 1,000 mls @ 150 mls/hr IV ASDIRECTED [facility] Sodium Chloride (Normal Saline) 1,000 mls @ 125 mls/hr IV ASDIRECTED [facility] Last Admin: 09/07/19 15:36 Dose: 125 mls/hr Ceftriaxone Sodium/Dextrose 1 (gm/ Premix) 50 mls @ 100 mls/hr IV Q24H [facility] Last Admin: 09/07/19 15:37 Dose: 100 mls/hr Ondansetron HCl (Zofran) 4 mg IVPUSH Q4H PRN PRN Reason: Nausea/Vomiting Assessment/Plan Comment:: 69 y/o F admitted for pre-syncope, weakness Labs significant for KEVAN, UTI Troponin negative, EKG noted Will start IV Rocephin F/U on urine and blood cultures KEVAN likely pre-renal, patient looks extremely dehydrated on physical exam Start IV fluids NS@ 125 cc/hr Resume home meds as appropriate Monitor and replete electrolytes
[2019-09-07] MEDS: Apixaban 5 MG Tab PO SCH ×2 (19:30→21:46)
[2019-09-08] MEDS: Sodium Chloride 0.9% 1,000 ML IV SCH ×3 (00:56→18:56)
[2019-09-08 05:47] LABS: CARBON DIOXIDE,CO2 21.6 mmol/L (21.0-32.0); POTASSIUM,K 4.7 mmol/L (3.5-5.1)
[2019-09-08] MEDS: Apixaban 5 MG Tab PO SCH ×2 (08:41→20:45)
[2019-09-08] MEDS ORDERED: cefTRIAXone 1 GM in Premix Bag 1 BAG IV SCH (09:00)
[2019-09-08] MEDS: Diltiazem 180 MG Cap.CD PO SCH (11:15)
--- NOTE | 2019-09-08 12:19 | PCM.PN ---
- General Info Date of Service: 09/08/19 Admission Dx/Problem (Free Text): Admission Diagnosis/Problem Admission Diagnosis/Problem Urinary tract infection Functional Status: Reports: Tolerating Diet, Urinating - Review of Systems General: Reports: Weakness, Fatigue, Malaise. Denies: Fever Pulmonary: Denies: Shortness of Breath, Pleuritic Chest Pain Cardiovascular: Denies: Chest Pain, Palpitations Gastrointestinal: Reports: Decreased Appetite. Denies: Abdominal Pain, Constipation, Diarrhea, Difficulty Swallowing Genitourinary: Reports: Dysuria, Frequency. Denies: Burning, Pain Musculoskeletal: Reports: Back Pain. Denies: Neck Pain, Arm Pain, Hand Pain Skin: Denies: Cyanosis, Jaundice Neurological: Reports: Confusion. Denies: Dizziness Psychiatric: Reports: Confusion - Patient Data Vitals - Most Recent: Last Vital Signs Temp 36.6 C 09/08/19 11:00 Pulse 88 09/08/19 11:00 Resp 16 09/08/19 11:00 BP 134/93 H 09/08/19 11:00 Pulse Ox 97 09/08/19 11:00 Weight - Most Recent: 81.647 kg I&O - Last 24 Hours: Intake & Output 09/07/19 09/08/19 09/08/19 22:59 06:59 14:59 Intake Total 2370 Output Total 900 Balance 1470 Lab Results Last 24 Hours: Laboratory Results - last 24 hr 09/07/19 09/07/19 09/08/19 Range/Units 13:00 15:24 05:18 WBC 9.14 (4.0-11.0) K/uL RBC 4.41 (4.30-5.90) M/uL Hgb 13.0 (12.0-16.0) g/dL Hct 41.0 (36.0-46.0) % MCV 93.0 (80.0-98.0) fL MCH 29.5 (27.0-32.0) pg MCHC 31.7 (31.0-37.0) g/dL RDW Std Deviation 46.8 (28.0-62.0) fl RDW Coeff of Brittny 14 (11.0-15.0) % Plt Count 303 (150-400) K/uL MPV 10.50 (7.40-12.00) fL Neut % (Auto) 64.2 (48.0-80.0) % Lymph % (Auto) 25.9 (16.0-40.0) % [place] % (Auto) 7.7 (0.0-15.0) % Eos % (Auto) 1.9 (0.0-7.0) % Baso % (Auto) 0.3 (0.0-1.5) % Neut # (Auto) 5.9 H (1.4-5.7) K/uL Lymph # (Auto) 2.4 (0.6-2.4) K/uL [place] # (Auto) 0.7 (0.0-0.8) K/uL Eos # (Auto) 0.2 (0.0-0.7) K/uL Baso # (Auto) 0.0 (0.0-0.1) K/uL Nucleated RBC % 0.0 /100WBC Nucleated RBCs # 0 K/uL Sodium (136-145) mmol/L Potassium (3.5-5.1) mmol/L Chloride (98-107) mmol/L Carbon Dioxide (21.0-32.0) mmol/L BUN (7.0-18.0) mg/dL Creatinine (0.6-1.0) mg/dL Est Cr Clr Drug Dosing mL/min Estimated GFR (MDRD) ml/min Glucose (74-106) mg/dL POC Glucose 89 (60-110) mg/dL Calcium (8.5-10.1) mg/dL Phosphorus (2.6-4.7) mg/dL Magnesium (1.8-2.4) mg/dL Urine Color YELLOW Urine Appearance SLT CLOUDY Urine pH 5.5 (5.0-8.0) Ur Specific [place] 1.025 (1.001-1.035) Urine Protein NEGATIVE (NEGATIVE) mg/dL Urine Glucose (UA) NEGATIVE (NEGATIVE) mg/dL Urine Ketones NEGATIVE (NEGATIVE) mg/dL Urine Occult Blood NEGATIVE (NEGATIVE) Urine Nitrite NEGATIVE (NEGATIVE) Urine Bilirubin NEGATIVE (NEGATIVE) Urine Urobilinogen 0.2 (<2.0) EU/dL Ur Leukocyte Esterase TRACE H (NEGATIVE) U Hyaline Cast (Auto) 0-2 (0-2/LPF) Urine RBC 0-2 (0-2/HPF) Urine WBC 5-8 (0-5/HPF) Ur Epithelial Cells MODERATE (NONE-FEW) Amorphous Sediment MODERATE (NEGATIVE) Urine Bacteria 3+ H (NEGATIVE) Urine Mucus LIGHT (NONE-MOD) 09/08/19 Range/Units 05:18 WBC (4.0-11.0) K/uL RBC (4.30-5.90) M/uL Hgb (12.0-16.0) g/dL Hct (36.0-46.0) % MCV (80.0-98.0) fL MCH (27.0-32.0) pg MCHC (31.0-37.0) g/dL RDW Std Deviation (28.0-62.0) fl RDW Coeff of Brittny (11.0-15.0) % Plt Count (150-400) K/uL MPV (7.40-12.00) fL Neut % (Auto) (48.0-80.0) % Lymph % (Auto) (16.0-40.0) % [place] % (Auto) (0.0-15.0) % Eos % (Auto) (0.0-7.0) % Baso % (Auto) (0.0-1.5) % Neut # (Auto) (1.4-5.7) K/uL Lymph # (Auto) (0.6-2.4) K/uL [place] # (Auto) (0.0-0.8) K/uL Eos # (Auto) (0.0-0.7) K/uL Baso # (Auto) (0.0-0.1) K/uL Nucleated RBC % /100WBC Nucleated RBCs # K/uL Sodium 138 (136-145) mmol/L Potassium 4.7 (3.5-5.1) mmol/L Chloride 105 (98-107) mmol/L Carbon Dioxide 21.6 (21.0-32.0) mmol/L BUN 30 H (7.0-18.0) mg/dL Creatinine 1.7 H (0.6-1.0) mg/dL Est Cr Clr Drug Dosing 29.65 mL/min Estimated GFR (MDRD) 29.9 ml/min Glucose 106 (74-106) mg/dL POC Glucose (60-110) mg/dL Calcium 8.7 (8.5-10.1) mg/dL Phosphorus 3.7 (2.6-4.7) mg/dL Magnesium 1.8 (1.8-2.4) mg/dL Urine Color Urine Appearance Urine pH (5.0-8.0) Ur Specific [place] (1.001-1.035) Urine Protein (NEGATIVE) mg/dL Urine Glucose (UA) (NEGATIVE) mg/dL Urine Ketones (NEGATIVE) mg/dL Urine Occult Blood (NEGATIVE) Urine Nitrite (NEGATIVE) Urine Bilirubin (NEGATIVE) Urine Urobilinogen (<2.0) EU/dL Ur Leukocyte Esterase (NEGATIVE) U Hyaline Cast (Auto) (0-2/LPF) Urine RBC (0-2/HPF) Urine WBC (0-5/HPF) Ur Epithelial Cells (NONE-FEW) Amorphous Sediment (NEGATIVE) Urine Bacteria (NEGATIVE) Urine Mucus (NONE-MOD) Mohit Results Last 24 Hours: Microbiology 09/07/19 13:00 Urine Culture - Preliminary Urine, Catheterized 09/07/19 14:28 Anaerobic Blood Culture - Final Blood - Venous Med Orders - Current: Current Medications Acetaminophen (Tylenol) 325 mg PO Q4H PRN PRN Reason: Pain Albuterol/Ipratropium (Duoneb 3.0-0.5 Mg/3 Ml) 3 ml NEB Q4HRRT PRN PRN Reason: Shortness of Breath Apixaban (Eliquis) 5 mg PO BID [facility] Last Admin: 09/08/19 08:41 Dose: 5 mg Diltiazem HCl (Cardizem Cd) 360 mg PO DAILY [facility] Last Admin: 09/08/19 11:15 Dose: 360 mg Sodium Chloride (Normal Saline) 1,000 mls @ 125 mls/hr IV ASDIRECTED [facility] Last Admin: 09/08/19 10:08 Dose: 125 mls/hr Ceftriaxone Sodium/Dextrose 1 (gm/ Premix) 50 mls @ 100 mls/hr IV Q24H [facility] Last Admin: 09/07/19 15:37 Dose: 100 mls/hr Lorazepam (Ativan) 2 mg PO TID PRN PRN Reason: Anxiety Omeprazole (Omeprazole) 20 mg PO ACBREAKFAST [facility] Last Admin: 09/08/19 08:41 Dose: 20 mg Ondansetron HCl (Zofran) 4 mg IVPUSH Q4H PRN PRN Reason: Nausea/Vomiting Discontinued Medications Sodium Chloride (Normal Saline) 1,000 mls @ 150 mls/hr IV ASDIRECTED [facility]ARVIS Omeprazole (Omeprazole) 20 mg PO ACBREAKFAST [facility] Esomeprazole [Nexium (] 40 Mg) 1 each PO ACBREAKFAST [facility] Last Admin: 09/08/19 07:08 Dose: Not Given - Exam General: Alert, Oriented (*2), Cooperative Lungs: Clear to Auscultation, Normal Respiratory Effort Cardiovascular: Regular Rate, Regular Rhythm GI/Abdominal Exam: Normal Bowel Sounds, Soft, Non-Tender Extremities: Limited Range of Motion Sepsis Event Note - Evaluation Sepsis Screening Result: No Definite Risk - Focused Exam Vital Signs: Vital Signs Temp Pulse Resp BP Pulse Ox 09/08/19 11:00 36.6 C 88 16 134/93 H 97 09/08/19 07:56 36.8 C 70 16 159/76 H 94 L 09/08/19 03:43 36.5 C 75 15 129/70 96 Date Exam was Performed: 09/08/19 Time Exam was Performed: 12:09 - Problem List & Annotations (1) KEVAN (acute kidney injury) SNOMED Code(s): 59057643, 30179914 Code(s): N17.9 - ACUTE KIDNEY FAILURE, UNSPECIFIED Status: Acute Current Visit: Yes (2) Near syncope SNOMED Code(s): 371931132 Code(s): R55 - SYNCOPE AND COLLAPSE Status: Acute Current Visit: Yes (3) Dehydration SNOMED Code(s): 07556465 Code(s): E86.0 - DEHYDRATION Status: Acute Current Visit: Yes (4) Fall SNOMED Code(s): 9784471, 612689540 Code(s): W19.XXXA - UNSPECIFIED FALL, INITIAL ENCOUNTER Status: Acute Current Visit: No (5) Urinary tract infection SNOMED Code(s): 90689061 Code(s): N39.0 - URINARY TRACT INFECTION, SITE NOT SPECIFIED Status: Acute Current Visit: Yes - My Orders Last 24 Hours: My Active Orders 09/07/19 15:02 Ambulate [RC] ASDIRECTED Oxygen Therapy [RC] PRN VTE/DVT Education [RC] PER UNIT ROUTINE Vital Signs [RC] Q4H Ondansetron [Zofran] 4 mg IVPUSH Q4H PRN 09/07/19 15:15 Sodium Chloride 0.9% [Normal Saline] 1,000 ml IV ASDIRECTED 09/07/19 15:30 cefTRIAXone [Rocephin in Dextrose,Iso-Osm 1 GM/50 ML] 1 gm Premix Bag 1 bag IV Q24H 09/07/19 15:35 Albuterol/Ipratropium [DuoNeb 3.0-0.5 MG/3 ML] 3 ml NEB Q4HRRT PRN 09/07/19 15:36 RT Aerosol Therapy [RC] ASDIRECTED 09/07/19 15:41 Acetaminophen [Tylenol] 325 mg PO Q4H PRN 09/07/19 18:00 Apixaban [Eliquis] 5 mg PO BID 09/08/19 08:15 Omeprazole 20 mg PO ACBREAKFAST - Plan Plan:: 69 y/o F admitted for pre-syncope, weakness KEVAN resolving, Mentation improving Troponin negative, EKG noted Cont IV Rocephin F/U on urine and blood cultures Start IV fluids NS@ 125 cc/hr Resume home meds as appropriate Monitor and replete electrolytes
[2019-09-08] MEDS: cefTRIAXone 1 GM in Premix Bag 1 BAG IV SCH (15:07)
[2019-09-08] MEDS: LORazepam 1 MG Tab PO PRN (22:05)
[2019-09-09] MEDS: Sodium Chloride 0.9% 1,000 ML IV SCH (02:38)
[2019-09-09 06:00] LABS: CARBON DIOXIDE,CO2 20.6 mmol/L (21.0-32.0)
[2019-09-09] MEDS: Apixaban 5 MG Tab PO SCH (08:59)
[2019-09-09] MEDS: Diltiazem 180 MG Cap.CD PO SCH (08:59)
[2019-09-09] MEDS ORDERED: Magnesium Sulfate/Water 2 GM in Premix Bag 1 BAG IV ONE (09:25)
--- NOTE | 2019-09-09 11:13 | PCM.DCSUM1 ---
Discharge Summary - Hospital Course Free Text/Narrative:: Patient is a 69 y/o F with PMH of HTN, TIA, Hip replacement, thyroid nodules, diverticulosis, comes in after an episode of pre-syncope. Reportedly patient fell from her wheelchair and hit her head. in the ER, CT scan head didn't show any acute stroke, troponin was negative, labs were significant for KEVAN and UA showed UTI. Right hip xray was negative for fracture. Patient is being admitted to hospital for further management. Patient was lethargic during my encounter and couldn't contribute much to history. Patient was started on IV fluids for KEVAN, she was also started On Rocephin for UTI, next morning patients mental status was much better, her home meds reveled she was on a lot of neuropsychiatry meds. such as opioids, gabapentin, muscle relaxants, tramadol. I educated the patient about dangers of polypharmacy and how it could have contributed to her AMS. Patient was willing to stop some of the meds. Patients KEVAN resolved and her UC grew GBS, she also grew Gardnerella, but was asymptomatic, she was discharged on ampicillin based on cultures and was medially stable for dc. Diagnosis: Stroke: No - Discharge Data Discharge Date: 09/09/19 Discharge Disposition: Home, Self-Care 01 Condition: Stable - Referral to Home Health Primary Care Physician: [facility] - Discharge Diagnosis/Problem(s) (1) KEVAN (acute kidney injury) SNOMED Code(s): 41682874, 86896768 ICD Code: N17.9 - ACUTE KIDNEY FAILURE, UNSPECIFIED Status: Acute (2) Near syncope SNOMED Code(s): 444592363 ICD Code: R55 - SYNCOPE AND COLLAPSE Status: Acute (3) Dehydration SNOMED Code(s): 08921431 ICD Code: E86.0 - DEHYDRATION Status: Acute (4) Fall SNOMED Code(s): 1031216, 344390826 ICD Code: W19.XXXA - UNSPECIFIED FALL, INITIAL ENCOUNTER Status: Acute (5) Urinary tract infection SNOMED Code(s): 99948381 ICD Code: N39.0 - URINARY TRACT INFECTION, SITE NOT SPECIFIED Status: Acute - Patient Instructions Diet: Regular Diet as Tolerated Activity: As Tolerated Showering/Bathing: May Shower Notify Provider of: Fever, Increased Pain, Swelling and Redness, Nausea and/or Vomiting - Discharge Plan *PRESCRIPTION DRUG MONITORING PROGRAM REVIEWED*: No *COPY OF PRESCRIPTION DRUG MONITORING REPORT IN PATIENT ALMA ROSA: No Prescriptions/Med Rec: Ampicillin [Principen] 500 mg PO Q6H #20 cap Home Medications: Home Meds DULoxetine HCl [Duloxetine HCl] 120 mg PO BEDTIME 12/22/13 [History] Apixaban [Eliquis] 5 mg PO BID 08/14/15 [History] LORazepam 2 mg PO TID PRN 08/14/15 [History] traMADol HCl [Ultram] 100 mg PO BID PRN 08/14/15 [History] Esomeprazole [NexIUM] 40 mg PO DAILY 08/21/17 [History] Spironolact/Hydrochlorothiazid [Aldactazide 25-25] 2 tab PO DAILY 08/21/17 [ History] dilTIAZem HCL [Cardizem Cd] 360 mg PO DAILY 08/21/17 [History] Olmesartan Medoxomil 40 mg PO DAILY 09/07/19 [History] Ampicillin [Principen] 500 mg PO Q6H #20 cap 09/09/19 [Rx] Patient Handouts: Urinary Tract Infection, Adult, Arni-ad-Ynte, Dehydration, Adult, [id number], Ampicillin capsules Referrals: Jens Arceo [Primary Care Provider] - - Discharge Summary/Plan Comment DC Time >30 min.: No - Patient Data Vitals - Most Recent: Last Vital Signs Temp 35.3 C L 09/09/19 07:10 Pulse 64 09/09/19 07:10 Resp 16 09/09/19 07:10 BP 154/91 H 09/09/19 07:10 Pulse Ox 98 09/09/19 07:10 Weight - Most Recent: 81.647 kg I&O - Last 24 hours: Intake & Output 09/08/19 09/09/19 09/09/19 22:59 06:59 14:59 Intake Total 1336 1485 Balance 1336 1485 Lab Results - Last 24 hrs: Laboratory Results - last 24 hr 09/09/19 09/09/19 Range/Units 05:00 05:00 WBC 11.00 (4.0-11.0) K/uL RBC 4.10 L (4.30-5.90) M/uL Hgb 12.1 (12.0-16.0) g/dL Hct 37.9 (36.0-46.0) % MCV 92.4 (80.0-98.0) fL MCH 29.5 (27.0-32.0) pg MCHC 31.9 (31.0-37.0) g/dL RDW Std Deviation 46.2 (28.0-62.0) fl RDW Coeff of Brittny 14 (11.0-15.0) % Plt Count 314 (150-400) K/uL MPV 10.80 (7.40-12.00) fL Neut % (Auto) 66.8 (48.0-80.0) % Lymph % (Auto) 23.8 (16.0-40.0) % Bowie % (Auto) 7.6 (0.0-15.0) % Eos % (Auto) 1.5 (0.0-7.0) % Baso % (Auto) 0.3 (0.0-1.5) % Neut # (Auto) 7.3 H (1.4-5.7) K/uL Lymph # (Auto) 2.6 H (0.6-2.4) K/uL Bowie # (Auto) 0.8 (0.0-0.8) K/uL Eos # (Auto) 0.2 (0.0-0.7) K/uL Baso # (Auto) 0.0 (0.0-0.1) K/uL Nucleated RBC % 0.0 /100WBC Nucleated RBCs # 0 K/uL Sodium 140 (136-145) mmol/L Potassium 4.0 (3.5-5.1) mmol/L Chloride 108 H (98-107) mmol/L Carbon Dioxide 20.6 L (21.0-32.0) mmol/L BUN 16 (7.0-18.0) mg/dL Creatinine 1.2 H (0.6-1.0) mg/dL Est Cr Clr Drug Dosing 42.00 mL/min Estimated GFR (MDRD) 44.7 ml/min Glucose 111 H (74-106) mg/dL Calcium 8.6 (8.5-10.1) mg/dL Phosphorus 2.9 (2.6-4.7) mg/dL Magnesium 1.5 L (1.8-2.4) mg/dL FREDERICK Results - Last 24 hrs: Microbiology 09/07/19 13:00 Urine Culture - Final Urine, Catheterized Streptococcus Agalactiae Grp B Presumt. Gardnerella Vaginalis Normal Urogenital Ernestine 09/07/19 14:38 Aerobic Blood Culture - Preliminary Blood - Venous - Lab Draw NO GROWTH AFTER 1 DAY Anaerobic Blood Culture - Preliminary NO GROWTH AFTER 1 DAY 09/07/19 14:28 Aerobic Blood Culture - Preliminary Blood - Venous NO GROWTH AFTER 1 DAY Anaerobic Blood Culture - Final Med Orders - Current: Current Medications Acetaminophen (Tylenol) 325 mg PO Q4H PRN PRN Reason: Pain Last Admin: 09/09/19 02:35 Dose: 325 mg Albuterol/Ipratropium (Duoneb 3.0-0.5 Mg/3 Ml) 3 ml NEB Q4HRRT PRN PRN Reason: Shortness of Breath Apixaban (Eliquis) 5 mg PO BID [facility] Last Admin: 09/09/19 08:59 Dose: 5 mg Diltiazem HCl (Cardizem Cd) 360 mg PO DAILY [facility] Last Admin: 09/09/19 08:59 Dose: 360 mg Sodium Chloride (Normal Saline) 1,000 mls @ 125 mls/hr IV ASDIRECTED [facility] Last Admin: 09/09/19 02:38 Dose: 125 mls/hr Ceftriaxone Sodium/Dextrose 1 (gm/ Premix) 50 mls @ 100 mls/hr IV Q24H [facility] Last Admin: 09/08/19 15:07 Dose: 100 mls/hr Lorazepam (Ativan) 2 mg PO TID PRN PRN Reason: Anxiety Last Admin: 09/08/19 22:05 Dose: 2 mg Omeprazole (Omeprazole) 20 mg PO ACBREAKFAST [facility] Last Admin: 09/09/19 06:51 Dose: 20 mg Ondansetron HCl (Zofran) 4 mg IVPUSH Q4H PRN PRN Reason: Nausea/Vomiting Discontinued Medications Sodium Chloride (Normal Saline) 1,000 mls @ 150 mls/hr IV ASDIRECTED [facility] Magnesium Sulfate 2 gm/ Premix 50 mls @ 50 mls/hr IV ONETIME ONE Stop: 09/09/19 10:24 Last Admin: 09/09/19 10:03 Dose: 50 mls/hr Omeprazole (Omeprazole) 20 mg PO ACBREAKFAST JARVIS Esomeprazole [Nexium (] 40 Mg) 1 each PO ACBREAKFAST JARVIS Last Admin: 09/08/19 07:08 Dose: Not Given
[2019-09-09] MEDS: LORazepam 1 MG Tab PO PRN (12:31)
[2019-09-09 12:44] VITALS: BP 183/64; PULSE 74
== END 2019-09-09 12:45 | disposition home or self-care (01) | DRG 683 ==
LOC: MW.ED 10:52 → MW.MS 14:06 → OBSVTOIN 15:08
PROVIDERS: ADMIT Student in an Organized Health Care Education/Training Program; ATTEND Student in an Organized Health Care Education/Training Program
DX: N17.9 Acute kidney failure, unspecified (principal); N39.0 Urinary tract infection, site not specified; E86.0 Dehydration; I48.91 Unspecified atrial fibrillation; E78.00 Pure hypercholesterolemia, unspecified; R55 Syncope and collapse; I10 Essential (primary) hypertension; J44.9 Chronic obstructive pulmonary disease, unspecified; G47.30 Sleep apnea, unspecified; M19.90 Unspecified osteoarthritis, unspecified site; K21.9 Gastro-esophageal reflux disease without esophagitis; M81.0 Age-related osteoporosis without current pathological fracture; M54.9 Dorsalgia, unspecified; W05.0XXA Fall from non-moving wheelchair, initial encounter; G89.29 Other chronic pain; F31.9 Bipolar disorder, unspecified; E66.9 Obesity, unspecified; W01.10XA Fall on same level from slipping, tripping and stumbling with subsequent striking against unspecified object, initial encounter; F17.200 Nicotine dependence, unspecified, uncomplicated; Z96.649 Presence of unspecified artificial hip joint; Z96.659 Presence of unspecified artificial knee joint; Z88.5 Allergy status to narcotic agent; Z86.73 Personal history of transient ischemic attack (TIA), and cerebral infarction without residual deficits; Z98.49 Cataract extraction status, unspecified eye; Z90.49 Acquired absence of other specified parts of digestive tract; Z88.8 Allergy status to other drugs, medicaments and biological substances; Z79.899 Other long term (current) drug therapy; Z68.29 Body mass index [BMI] 29.0-29.9, adult
CPT/HCPCS: 36415; 70450; 70450-26; 71045; 71045-26; 73501-26-RT; 73501-RT; 80048; 80053; 81001; 82962; 83735; 84100; 84484; 85025; 85610; 87040; 87086; 87088; 87186; 93005; 99284; 99285-25; A9270-GY; J0696; J3475; J7030

== ENCOUNTER 2019-09-20 17:17 | Emergency (ER) | payer MEDICARE, MEDICAID ==
[2019-09-20] MEDS ORDERED: Ondansetron 4 MG/2 ML SDV IVPUSH ONE (17:21)
[2019-09-20] MEDS ORDERED: fentaNYL 50 MCG/ML SDV IVPUSH ONE (17:21)
--- NOTE | 2019-09-20 17:29 | EDM.PDOC ---
ED HPI GENERAL MEDICAL PROBLEM - General Stated Complaint: BACK PAIN Time Seen by Provider: 09/20/19 17:19 - History of Present Illness INITIAL COMMENTS - FREE TEXT/NARRATIVE: 69-year-old female with history of stroke on Eliquis using an electric wheelchair presents with fall with right flank pain. The patient reports that several times over the last 3 days she has slid rapidly out of her wheelchair and falling. She did strike her head the other day but not today. This morning the patient was coming out of her bedroom and slid rapidly out of her wheelchair striking her right flank and chest on the way down. She did not strike her head she did not lose consciousness. She has severe right lateral and posterior chest pain that is associated with shortness of breath and worsens with deep breaths. She denies nausea or vomiting she denies abdominal pain she denies extremity pain. She has no shoulder pain but moving her shoulder makes her right side hurt more. general Pain Score (Numeric/FACES): 10 - Related Data Allergies Allergy/AdvReac Type Severity Reaction Status Date / Time codeine Allergy Intermediate Airway Verified 09/20/19 18:09 Tightness meperidine HCl [From Demerol] Allergy Intermediate Airway Verified 09/20/19 18: 09 Tightness morphine Allergy Intermediate Airway Verified 09/20/19 18:09 Tightness oxycodone [Oxycodone] Allergy Intermediate Airway Verified 09/20/19 18:09 Tightness lidocaine Allergy Anaphylactic Verified 09/20/19 18:09 Shock orphenadrine Allergy Airway Verified 09/20/19 18:09 Tightness varenicline tartrate Allergy Airway Verified 09/20/19 18:09 [From Chantix] Tightness Home Meds: Home Meds DULoxetine HCl [Duloxetine HCl] 120 mg PO BEDTIME 12/22/13 [History] Apixaban [Eliquis] 5 mg PO BID 08/14/15 [History] LORazepam 2 mg PO TID PRN 08/14/15 [History] traMADol HCl [Ultram] 100 mg PO BID PRN 08/14/15 [History] Esomeprazole [NexIUM] 40 mg PO DAILY 08/21/17 [History] Spironolact/Hydrochlorothiazid [Aldactazide 25-25] 2 tab PO DAILY 08/21/17 [ History] dilTIAZem HCL [Cardizem Cd] 360 mg PO DAILY 08/21/17 [History] Olmesartan Medoxomil 40 mg PO DAILY 09/07/19 [History] Ampicillin [Principen] 500 mg PO Q6H #20 cap 09/09/19 [Rx] Past Medical History HEENT History: Reports: Allergic Rhinitis, Impaired Vision, Other (See Below) Other HEENT History: wears reading glasses Cardiovascular History: Reports: Afib, High Cholesterol, Hypertension Respiratory History: Reports: Bronchitis, Recurrent, COPD, SOB, Other (See Below ) Other Respiratory History: was tested for sleep apnea last week, no results yet Gastrointestinal History: Reports: Cholelithiasis, GERD Genitourinary History: Reports: None [employer] History: Reports: None Musculoskeletal History: Reports: Arthritis, Fracture, Osteoporosis Other Musculoskeletal History: states chronic back and right hip pain, hx of fx right wrist and right tib-fib, wheelchair bound due to hip pain and major SOB Neurological History: Reports: TIA Other Neuro History: has has TIA x2, 2009 and 2013. No residual weakness, no intervention done except physical therapy Psychiatric History: Reports: Bipolar, Depression Endocrine/Metabolic History: Reports: Obesity/BMI 30+, Other (See Below) Other Endocrine/Metabolic History: states has 2 "lumps" on thyroid as noted on ultrasound Hematologic History: Reports: None Immunologic History: Reports: None Oncologic (Cancer) History: Reports: None Dermatologic History: Reports: None - Infectious Disease History Infectious Disease History: Reports: Measles - Past Surgical History Head Surgeries/Procedures: Reports: None HEENT Surgical History: Reports: Cataract Surgery GI Surgical History: Reports: Bariatric Procedure, Cholecystectomy Female Surgical History: Reports: None Neurological Surgical History: Reports: None Musculoskeletal Surgical History: Reports: Hip Replacement, Knee Replacement, ORIF Social & Family History - Family History Family Medical History: Noncontributory - Caffeine Use Caffeine Use: Reports: Coffee ED ROS GENERAL - Review of Systems Review Of Systems: See Below Free Text/Narrative/Comment: General: No fever. Skin: No rash. Eyes: No vision problems. ENT: No sore throat. Neck: No neck stiffness. Respiratory: Per HPI Cardiac: Per HPI Gastrointestinal: No nausea, vomiting or abdominal pain. Urinary: No dysuria. Musculoskeletal: No myalgias/arthralgias. Neurologic: No headache. ED EXAM, GENERAL - Physical Exam Exam: See Below Free Text/Narrative:: General Appearance: No acute distress, appears comfortable Skin: No rash HEENT: Subacute appearing right forehead contusion without underlying swelling sclera anicteric, mucous membranes moist Neck: Normal range of motion, no midline tenderness Chest and Lungs: Bilateral breath sounds, clear to auscultation, tenderness without deformity just inferior to the angle of the scapula over the ribs wrapping around laterally to the posterior axillary line no crepitus or underlying deformities appreciated Cardiovascular: Regular rate and rhythm, no murmur Abdomen: Soft, non-tender Back: No spinal tenderness no step-offs Musculoskeletal: No edema or tenderness, chronic right leg shortening secondary to multiple prior fractures Neurologic: Awake, alert, no obvious deficits, moving all extremities Psychiatric: Appropriate, cooperative Course - Vital Signs Last Recorded V/S: Last Vital Signs Temp 96.2 F L 09/20/19 17:17 Pulse 80 09/20/19 17:17 Resp 20 09/20/19 17:17 BP 176/96 H 09/20/19 17:17 Pulse Ox 97 09/20/19 17:17 - Orders/Labs/Meds Orders: Active Orders 24 hr Category Date Time Status UA RFX FREDERICK AND CULT IF INDIC [URIN] Stat Lab 09/20/19 19:00 Received Labs: Laboratory Tests 09/20/19 09/20/19 09/20/19 Range/Units 17:20 17:20 17:20 WBC 14.48 H (4.0-11.0) K/uL RBC 4.40 (4.30-5.90) M/uL Hgb 13.5 (12.0-16.0) g/dL Hct 41.0 (36.0-46.0) % MCV 93.2 (80.0-98.0) fL MCH 30.7 (27.0-32.0) pg MCHC 32.9 (31.0-37.0) g/dL RDW Std Deviation 47.0 (28.0-62.0) fl RDW Coeff of Brittny 14 (11.0-15.0) % Plt Count 306 (150-400) K/uL MPV 11.30 (7.40-12.00) fL Neut % (Auto) 68.6 (48.0-80.0) % Lymph % (Auto) 22.7 (16.0-40.0) % Cooke % (Auto) 7.8 (0.0-15.0) % Eos % (Auto) 0.6 (0.0-7.0) % Baso % (Auto) 0.3 (0.0-1.5) % Neut # (Auto) 9.9 H (1.4-5.7) K/uL Lymph # (Auto) 3.3 H (0.6-2.4) K/uL Cooke # (Auto) 1.1 H (0.0-0.8) K/uL Eos # (Auto) 0.1 (0.0-0.7) K/uL Baso # (Auto) 0.0 (0.0-0.1) K/uL Nucleated RBC % 0.0 /100WBC Nucleated RBCs # 0 K/uL INR 1.03 APTT 36.2 H (18.6-31.3) SEC Sodium 136 (136-145) mmol/L Potassium 4.1 (3.5-5.1) mmol/L Chloride 100 (98-107) mmol/L Carbon Dioxide 28.1 (21.0-32.0) mmol/L BUN 14 (7.0-18.0) mg/dL Creatinine 1.1 H (0.6-1.0) mg/dL Est Cr Clr Drug Dosing TNP Estimated GFR (MDRD) 49.4 ml/min Glucose 99 (74-106) mg/dL Calcium 9.0 (8.5-10.1) mg/dL Total Bilirubin 0.7 (0.2-1.0) mg/dL AST 28 (15-37) IU/L ALT 39 (14-63) IU/L Alkaline Phosphatase 152 H (46-116) U/L Total Protein 7.5 (6.4-8.2) g/dL Albumin 3.3 L (3.4-5.0) g/dL Globulin 4.2 H (2.6-4.0) g/dL Albumin/Globulin Ratio 0.8 L (0.9-1.6) Meds: Medications Discontinued Medications Generic Name Dose Route Start Last Admin Trade Name Freq PRN Reason Stop Dose Admin Fentanyl 50 mcg 09/20/19 17:21 09/20/19 17:27 Fentanyl IVPUSH 09/20/19 17:22 50 mcg ONETIME ONE Administration Iopamidol 100 ml 09/20/19 17:56 09/20/19 17:57 Isovue Multipack-370 (76%) IVPUSH 09/20/19 17:57 100 ml ONETIME STA Administration Lidocaine 700 mg 09/20/19 17:32 09/20/19 18:31 Lidoderm 5% TOP 09/20/19 17:33 Not Given ONETIME ONE Ondansetron HCl 4 mg 09/20/19 17:21 09/20/19 17:27 Zofran IVPUSH 09/20/19 17:22 4 mg ONETIME ONE Administration Departure - Departure Time of Disposition: 19:14 Disposition: DC/Tfer to Acute Hospital 02 Clinical Impression: Multiple rib fractures, Hemothorax - Discharge Information *PRESCRIPTION DRUG MONITORING PROGRAM REVIEWED*: Not Applicable *COPY OF PRESCRIPTION DRUG MONITORING REPORT IN PATIENT ALMA ROSA: Not Applicable Sepsis Event Note - Focused Exam Vital Signs: Vital Signs Temp Pulse Resp BP Pulse Ox 09/20/19 17:17 96.2 F L 80 20 176/96 H 97 Date Exam was Performed: 09/20/19 Time Exam was Performed: 19:09 - My Orders Last 24 Hours: My Active Orders 09/20/19 19:00 UA RFX FREDERICK AND CULT IF INDIC [URIN] Stat - Assessment/Plan Last 24 Hours: My Active Orders 09/20/19 19:00 UA RFX FREDERICK AND CULT IF INDIC [URIN] Stat Assessment:: 69-year-old female presenting after sliding out of her wheelchair as described above primary survey intact secondary survey notable for right lateral and posterior chest wall tenderness. Rib fracture is a consideration pneumothorax is a consideration intra-abdominal bleeding or kidney injury is a consideration. Old abrasion to the right forehead appreciated on exam as well sounds like she did not strike her head during this fall but must have during her recent fall. I believe you can clinically clear the spine as well as the extremities. Portable chest x-ray was interpreted by myself at the bedside and was negative for pneumothorax patient will then proceed to the CT scanner for CT brain as well as abdomen pelvis to exclude intracranial intra-abdominal pathology. CBC, CMP, coag studies pending as well given patient's multiple allergies Zofran and fentanyl ordered for symptoms and will reassess. CT scan of the brain is unremarkable blood work is without concerning finding. Chest x-ray with small pleural effusion likely hemothorax CT scan of the abdomen pelvis also demonstrates hemothorax this can actually starts up the aortic arch. Given the hemothorax on Eliquis I called Dr. Cortez the general surgeon on-call. He came in and evaluated the imaging. It is his recommendation that the patient be transferred to a higher level of care where there is a chest surgeon. He recommends against chest tube placement here. The patient's work of breathing is normal her vital signs are normal she is in no respiratory distress. I think drainage of the hemothorax can be reasonably postponed at this time. Patient was discussed in full with Dr. Markham who accepted the patient for transfer. I also spoke to the trauma surgeon consumer science teacher Dr. Yoder who recommended against reversal of anticoagulation. The patient agrees to transport and we are arranging that at this time.
[2019-09-20] MEDS ORDERED: Lidocaine 5% 700 MG Patch TOP ONE (17:32)
--- NOTE | 2019-09-20 17:55 | CR ---
Chest: Portable view of the chest was obtained. Comparison: Prior chest x-ray of 09/20/19. Atelectasis is seen within the right base. Atelectasis is also noted within the left base. Lungs are otherwise clear. Heart size is normal. Upper mediastinum is within normal limits. Pacemaker is seen. Surgical clips are seen in the upper abdomen. Pleural thickening is seen along the right lateral chest possibly due to nonvisualized rib trauma. No pneumothorax is seen. Impression: 1. Thick areas of atelectasis within both lung bases. 2. Pleural thickening along the right lateral chest possibly due to nonvisualized rib trauma. 3. No other acute finding is seen. Diagnostic code #2 This report was dictated in MDT
--- NOTE | 2019-09-20 17:55 | CT ---
Head CT Technique: Multiple axial sections through the brain were obtained. Intravenous contrast was not utilized. Comparison: Prior head CT study of 09/07/19. Findings: Ventricles along with basal cisterns and sulci over the convexities are somewhat dilated. Findings are stable from previous exam. No abnormal parenchymal densities are seen. No evidence of intracranial hemorrhage. No midline shift or mass-effect is seen. Bone window settings were reviewed. Visualized paranasal sinuses and visualized mastoid sinuses show nothing acute. No acute calvarial abnormality is appreciated. Soft tissue swelling seen within the anterior scalp. Impression: 1. Soft tissue swelling within the anterior scalp. 2. No acute intracranial abnormality is appreciated. Diagnostic code #2 This report was dictated in MDT
[2019-09-20 17:56] LABS: BLOOD UREA NITROGEN,BUN 14 mg/dL (7.0-18.0); CARBON DIOXIDE,CO2 28.1 mmol/L (21.0-32.0); CHLORIDE,CL 100 mmol/L (98-107); GLUCOSE RANDOM 99 mg/dL (74-106); POTASSIUM,K 4.1 mmol/L (3.5-5.1); SODIUM,NA 136 mmol/L (136-145)
[2019-09-20] MEDS ORDERED: Iopamidol 755 MG/ML 200 ML Multipack Bottle IVPUSH STA (17:56)
--- NOTE | 2019-09-20 18:18 | CT ---
CT abdomen and pelvis Technique: Multiple axial sections were obtained from above the dome of the diaphragm inferiorly through the pubic symphysis. Intravenous and oral contrast was not utilized. Comparison: Previous CT abdomen and pelvis study of 09/24/18 is available. Findings: Small right-sided pleural effusion is seen. Fractures are identified within the 6th, 7th, 8th, 9th and 10th right ribs with mild displacement. Low density is noted within the periphery of the left lobe of the liver which appears similar to prior exam and therefore is felt to be incidental. Small peripheral lesion is also noted within the inferior right lobe of the liver which is also stable and therefore incidental. Spleen appears within normal limits. Surgical clips are seen within the left upper abdomen. Right adrenal gland appears unremarkable. Nodular densities are noted within the left adrenal gland which appear fairly stable from previous exam and most likely are benign. Pancreas is atrophied but shows no focal abnormality. Gallbladder not visualized presumably due to prior cholecystectomy. Aorta shows atherosclerotic calcification which continues into the iliac vessels without aneurysm. Kidneys show symmetric contrast enhancement. Small cysts are noted within both kidneys. No retroperitoneal adenopathy or mesenteric abnormalities are seen. No pelvic mass or adenopathy is noted. No free fluid or inflammatory change is appreciated. Right hip prosthesis is noted. No acute findings seen within the pelvis. Vacuum disc phenomena is noted within the left sacroiliac joint. Vacuum phenomena is seen within the L4-5 and L5-S1 disc. Compression deformity is noted within the L2 vertebral body which appears old. Impression: 1. Mildly displaced fractures within the right 6th through 10th ribs with small right-sided pleural effusion. 2. Other findings as noted above believed to be stable. No other acute finding is appreciated. Diagnostic code #3 This report was dictated in MDT
[2019-09-20 19:23] VITALS: BP 168/90; PULSE 87
[2019-09-20] MEDS ORDERED: fentaNYL 50 MCG/ML SDV ONE (19:43)
[2019-09-20] MEDS ORDERED: fentaNYL 100 MCG/2 ML SDV IVPUSH STA (19:54)
== END 2019-09-20 19:45 ==
LOC: MW.ED 17:17
DX: S27.1XXA Traumatic hemothorax, initial encounter (principal); S22.41XA Multiple fractures of ribs, right side, initial encounter for closed fracture; F31.9 Bipolar disorder, unspecified; E66.9 Obesity, unspecified; Z68.32 Body mass index [BMI] 32.0-32.9, adult; K21.9 Gastro-esophageal reflux disease without esophagitis; I48.91 Unspecified atrial fibrillation; I10 Essential (primary) hypertension; J44.9 Chronic obstructive pulmonary disease, unspecified; Z86.73 Personal history of transient ischemic attack (TIA), and cerebral infarction without residual deficits; Z79.01 Long term (current) use of anticoagulants; Z88.5 Allergy status to narcotic agent; Z88.6 Allergy status to analgesic agent; Z79.899 Other long term (current) drug therapy; V00.811A Fall from moving wheelchair (powered), initial encounter; S00.83XA Contusion of other part of head, initial encounter
CPT/HCPCS: 36415; 70450; 71045; 74177; 80053; 81003; 85025; 85610; 85730; 96374; 96375; 99285; J2405; J3010; Q9967; A9270-GY

== ENCOUNTER 2020-02-01 13:13 | Inpatient (IN) | payer MEDICARE, MEDICAID ==
[2020-02-01] MEDS ORDERED: Sodium Chloride 0.9% 2.5 ML Syringe FLUSH PRN (13:17)
[2020-02-01] MEDS ORDERED: Sodium Chloride 0.9% 10 ML Syringe FLUSH PRN (13:17)
--- NOTE | 2020-02-01 13:31 | EDM.PDOC ---
ED HPI GENERAL MEDICAL PROBLEM - General Chief Complaint: Neuro Symptoms/Deficits Stated Complaint: EMS ARRIVAL Time Seen by Provider: 02/01/20 13:16 Source of Information: Reports: Patient, EMS, Old Records History Limitations: Reports: No Limitations - History of Present Illness INITIAL COMMENTS - FREE TEXT/NARRATIVE: 61-year-old female with past medical history of CVA and multiple TIAs (no known deficits), hypertension, hyperlipidemia, status post right hip replacements, thyroid nodules, diverticulosis, paroxysmal atrial fibrillation on Xarelto presented the emergency department by ambulance for evaluation after multiple falls. Patient notes that she developed weakness in her left hand around 8:00 this morning while she was trying to eat breakfast. She then noticed weakness in her left lower extremity. She had a fall at home, did not strike her head but was able to get up and go to her ophthalmology appointment. In the parking lot, she had another fall which prompted a 911 call. When paramedics arrived, they were concerned about left upper extremity and left lower extremity weakness, she was transported to emergency department as a trauma alert due to her fall and anticoagulation. Of note, she was seen in our emergency department on 09/05/2014 for nearly identical symptoms of left sided facial droop and difficulty using her left arm and hand. Here in the emergency department, she complains of difficulty using her left arm, left upper extremity, and her left leg. She denies any headache, chest discomfort, shortness of breath, or new vision changes. ROS: A 10-point review of systems was negative, except as noted in the HPI (or in the ROS section of this note). Past medical history: Reviewed, no additional pertinent history. Surgical history: Reviewed in system, no additional pertinent history. Social history: Reviewed in system, no additional pertinent history. Family history: Reviewed in system, no additional pertinent history. PHYSICAL EXAM Vital signs reviewed. Nursing notes reviewed. Constitutional: Awake, alert, non-distressed. Head: Normocephalic, atraumatic. Eyes: EOMI, conjunctiva normal, no discharge, no scleral icterus. Pupils 3 mm bilaterally. Ears, Nose, Throat: External ears and nose normal, moist oral mucosa. Cardiovascular: 2+ radial pulse, capillary refill less than 2 seconds. Pulmonary: normal work of breathing, no accessory muscle use. Abdomen/GI: Soft, nontender, nondistended, no guarding or rigidity, no masses. Musculoskeletal: No deformities. Integumentary: Appropriate color for ethnicity, warm, dry, no pallor or jaundice, no rash. Neurologic: Alert, answering questions appropriately, slurred speech, left-sided facial droop, 4/5 strength with left upper extremity, weak left center consultant compared to right. Supple neck with normal range of motion. Left-sided pronator drift. Sensation intact to light touch x4. Psychiatric: Appropriate mood and affect, normal thought process. - Related Data Allergies Allergy/AdvReac Type Severity Reaction Status Date / Time codeine Allergy Intermediate Airway Verified 02/01/20 17:31 Tightness meperidine HCl [From Demerol] Allergy Intermediate Airway Verified 02/01/20 17:31 Tightness morphine Allergy Intermediate Airway Verified 02/01/20 17:31 Tightness oxycodone [Oxycodone] Allergy Intermediate Airway Verified 02/01/20 17:31 Tightness lidocaine Allergy Anaphylactic Verified 02/01/20 17:31 Shock orphenadrine Allergy Airway Verified 02/01/20 17:31 Tightness varenicline tartrate Allergy Airway Verified 02/01/20 17:31 [From Chantix] Tightness Home Meds: Home Meds DULoxetine HCl [Duloxetine HCl] 120 mg PO BEDTIME 12/22/13 [History] Apixaban [Eliquis] 5 mg PO BID 08/14/15 [History] LORazepam 2 mg PO TID PRN 08/14/15 [History] traMADol HCl [Ultram] 100 mg PO BID PRN 08/14/15 [History] Esomeprazole [NexIUM] 40 mg PO DAILY 08/21/17 [History] Spironolact/Hydrochlorothiazid [Aldactazide 25-25] 2 tab PO DAILY 08/21/17 [History] dilTIAZem HCL [Cardizem Cd] 360 mg PO DAILY 08/21/17 [History] Olmesartan Medoxomil 40 mg PO DAILY 09/07/19 [History] Ampicillin [Principen] 500 mg PO Q6H #20 cap 09/09/19 [Rx] Past Medical History HEENT History: Reports: Allergic Rhinitis, Impaired Vision, Other (See Below) Other HEENT History: wears reading glasses Cardiovascular History: Reports: Afib, High Cholesterol, Hypertension Respiratory History: Reports: Bronchitis, Recurrent, COPD, SOB, Other (See Below) Other Respiratory History: was tested for sleep apnea last week, no results yet Gastrointestinal History: Reports: Cholelithiasis, GERD Genitourinary History: Reports: None PALEONTOLOGICAL HELPER History: Reports: None Musculoskeletal History: Reports: Arthritis, Fracture, Osteoporosis Other Musculoskeletal History: states chronic back and right hip pain, hx of fx right wrist and right tib-fib, wheelchair bound due to hip pain and major SOB Neurological History: Reports: TIA Other Neuro History: has has TIA x2, 2009 and 2013. No residual weakness, no intervention done except physical therapy Psychiatric History: Reports: Bipolar, Depression Endocrine/Metabolic History: Reports: Obesity/BMI 30+, Other (See Below) Other Endocrine/Metabolic History: states has 2 "lumps" on thyroid as noted on ultrasound Hematologic History: Reports: None Immunologic History: Reports: None Oncologic (Cancer) History: Reports: None Dermatologic History: Reports: None - Infectious Disease History Infectious Disease History: Reports: Measles - Past Surgical History Head Surgeries/Procedures: Reports: None HEENT Surgical History: Reports: Cataract Surgery GI Surgical History: Reports: Bariatric Procedure, Cholecystectomy Female Surgical History: Reports: None Neurological Surgical History: Reports: None Musculoskeletal Surgical History: Reports: Hip Replacement, Knee Replacement, ORIF Social & Family History - Family History Family Medical History: Noncontributory - Caffeine Use Caffeine Use: Reports: Coffee ED ROS GENERAL - Review of Systems Review Of Systems: See Below ED EXAM, NEURO - Physical Exam Exam: See Below EKG INTERPRETATION EKG Interpretation Comments: 12-Lead ECG Interpretation Acquired: 1:11 PM Rhythm: Atrial paced rhythm Rate: 63 bpm [place]: Normal Intervals: First-degree AV block Ectopy: None Ischemic Changes: None apparent RV Strain: No obvious RV strain pattern. ST Segments/T-Waves: Biphasic T waves in leads aVR and aVL Interpretation: Abnormal Course - Vital Signs Text/Narrative:: 69-year-old female presenting with multiple falls, left-sided facial droop, left upper extremity weakness. Differential diagnosis includes but is not limited to: CVA, TIA, intracranial hemorrhage, subdural hemorrhage, subarachnoid hemorrhage, electrolyte disturbance, glucose disturbance, postictal state, and many others. Patient is out of the window for TPA, symptom onset approximately 5 hours 10 minutes prior to arrival to the emergency department. Stroke code was declared immediately upon arrival. Twelve-lead EKG was obtained, showing an atrial paced rhythm. IV access was established and labs were sent. Patient was taken to radiology for CT imaging of the head and neck. CT head shows no acute findings. Angiographic CT of the neck and head show proximal right ICA stenosis of 50 to 60%, mild atherosclerotic plaque within the left carotid bulb, poorly seen distal right vertebral artery, unclear if due to stenosis or poor contrast enhancement, normal-appearing basilar artery. CT angio head shows no acute findings. Chest x-rays are clear, no acute findings. Patient moved back to the emergency department. Labs returned, showing no acute abnormalities. Stable creatinine elevation. Symptoms are consistent with an ischemic stroke, with obvious left-sided facial droop, weak left hand center consultant strength, left upper extremity pronator drift, and dysarthria. NIHSS of 7. Patient underwent a bedside swallow study and was given full dose aspirin. She is already on anticoagulation. She is not a candidate for IV TPA or targeted neurovascular intervention (thrombectomy). She will need to be admitted the hospital for further work-up and treatment of a presumed ischemic stroke. I spoke with the hospitalist Dr. Josias Swartz who agrees to admit inpatient status. Last Recorded V/S: Last Vital Signs Temp Pulse 72 02/01/20 13:13 Resp 18 02/01/20 13:13 BP 109/47 L 02/01/20 13:13 Pulse Ox 92 L 02/01/20 13:13 - Orders/Labs/Meds Orders: Active Orders 24 hr Category Date Time Status Admission Status [Patient Status] [ADT] Stat ADT 02/01/20 14:24 Active Assess Neurological Status [RC] CONTINUOUS Care 02/01/20 14:23 Active Cardiac Monitoring [RC] . DIRECTED Care 02/01/20 13:17 Active Cardiac Monitoring [RC] CONTINUOUS Care 02/01/20 14:23 Active Communication Order [RC] STAT Care 02/01/20 14:23 Active EKG Documentation Completion [RC] STAT Care 02/01/20 13:17 Active Height and Weight [RC] UPON Care 02/01/20 14:23 Active NIH Stroke Scale [RC] STAT Care 02/01/20 14:23 Active Notify Provider Consults [RC] ASDIRECTED Care 02/01/20 16:53 Active Nursing Bedside Swallow Screen [RC] STAT Care 02/01/20 14:23 Active Pulse Oximetry [RC] ASDIRECTED Care 02/01/20 13:17 Active Consult to Physician [CONS] Routine Cons 02/01/20 16:53 Active UA RFX [place] AND CULT IF INDIC [URIN] Routine Lab 02/01/20 16:46 Ordered Sodium Chloride 0.9% [Saline Flush] Med 02/01/20 13:17 Active 10 ml FLUSH ASDIRECTED PRN Sodium Chloride 0.9% [Saline Flush] Med 02/01/20 13:17 Active 2.5 ml FLUSH ASDIRECTED PRN Saline Lock Insert [OM.PC] Stat Oth 02/01/20 13:17 Ordered Medication Orders Acetaminophen (Tylenol Extra Strength) 500 mg PO Q12H PRN PRN Reason: Pain Apixaban (Eliquis) 5 mg PO BID JARVIS Duloxetine HCl (Cymbalta) 120 mg PO BEDTIME JARVIS Melatonin (Melatonin) 3 mg PO BEDTIME PRN PRN Reason: Insomnia Non-Formulary Medication (Lorazepam) 2 mg PO TID PRN PRN Reason: Anxiety Sodium Chloride (Saline Flush) 10 ml FLUSH ASDIRECTED PRN PRN Reason: Keep Vein Open Last Admin: 02/01/20 14:44 Dose: 10 ml Documented by: ANA Sodium Chloride (Saline Flush) 2.5 ml FLUSH ASDIRECTED PRN PRN Reason: Keep Vein Open Last Admin: 02/01/20 14:44 Dose: 2.5 ml Documented by: ANA Tramadol HCl (Ultram) 100 mg PO BID PRN PRN Reason: Pain Labs: Laboratory Tests 02/01/20 02/01/20 02/01/20 Range/Units 13:15 13:15 13:15 WBC 12.03 H (4.0-11.0) K/uL RBC 4.08 L (4.30-5.90) M/uL Hgb 12.3 (12.0-16.0) g/dL Hct 38.4 (36.0-46.0) % MCV 94.1 (80.0-98.0) fL MCH 30.1 (27.0-32.0) pg MCHC 32.0 (31.0-37.0) g/dL RDW Std Deviation 46.8 (28.0-62.0) fl RDW Coeff of Brittny 14 (11.0-15.0) % Plt Count 259 (150-400) K/uL MPV 11.20 (7.40-12.00) fL Neut % (Auto) 67.4 (48.0-80.0) % Lymph % (Auto) 23.9 (16.0-40.0) % Bullock % (Auto) 7.3 (0.0-15.0) % Eos % (Auto) 1.2 (0.0-7.0) % Baso % (Auto) 0.2 (0.0-1.5) % Neut # (Auto) 8.1 H (1.4-5.7) K/uL Lymph # (Auto) 2.9 H (0.6-2.4) K/uL Bullock # (Auto) 0.9 H (0.0-0.8) K/uL Eos # (Auto) 0.1 (0.0-0.7) K/uL Baso # (Auto) 0.0 (0.0-0.1) K/uL Nucleated RBC % 0.0 /100WBC Nucleated RBCs # 0 K/uL INR 1.07 APTT 29.1 (18.6-31.3) SEC Sodium 139 (136-145) mmol/L Potassium 4.0 (3.5-5.1) mmol/L Chloride 105 (98-107) mmol/L Carbon Dioxide 24.7 (21.0-32.0) mmol/L BUN 15 (7.0-18.0) mg/dL Creatinine 1.3 H (0.6-1.0) mg/dL Est Cr Clr Drug Dosing TNP Estimated GFR (MDRD) 40.7 ml/min Glucose 98 (74-106) mg/dL Calcium 8.5 (8.5-10.1) mg/dL Total Bilirubin 0.2 (0.2-1.0) mg/dL AST 31 (15-37) IU/L ALT 43 (14-63) IU/L Alkaline Phosphatase 142 H (46-116) U/L Troponin I < 0.050 (0.000-0.056) ng/mL Total Protein 6.9 (6.4-8.2) g/dL Albumin 3.5 (3.4-5.0) g/dL Globulin 3.4 (2.6-4.0) g/dL Albumin/Globulin Ratio 1.0 (0.9-1.6) SARS-CoV-2 RNA (KEI) (NEGATIVE) 02/01/20 Range/Units 14:08 WBC (4.0-11.0) K/uL RBC (4.30-5.90) M/uL Hgb (12.0-16.0) g/dL Hct (36.0-46.0) % MCV (80.0-98.0) fL MCH (27.0-32.0) pg MCHC (31.0-37.0) g/dL RDW Std Deviation (28.0-62.0) fl RDW Coeff of Brittny (11.0-15.0) % Plt Count (150-400) K/uL MPV (7.40-12.00) fL Neut % (Auto) (48.0-80.0) % Lymph % (Auto) (16.0-40.0) % Bullock % (Auto) (0.0-15.0) % Eos % (Auto) (0.0-7.0) % Baso % (Auto) (0.0-1.5) % Neut # (Auto) (1.4-5.7) K/uL Lymph # (Auto) (0.6-2.4) K/uL [place]ock # (Auto) (0.0-0.8) K/uL Eos # (Auto) (0.0-0.7) K/uL Baso # (Auto) (0.0-0.1) K/uL Nucleated RBC % /100WBC Nucleated RBCs # K/uL INR APTT (18.6-31.3) SEC Sodium (136-145) mmol/L Potassium (3.5-5.1) mmol/L Chloride (98-107) mmol/L Carbon Dioxide (21.0-32.0) mmol/L BUN (7.0-18.0) mg/dL Creatinine (0.6-1.0) mg/dL Est Cr Clr Drug Dosing Estimated GFR (MDRD) ml/min Glucose (74-106) mg/dL Calcium (8.5-10.1) mg/dL Total Bilirubin (0.2-1.0) mg/dL AST (15-37) IU/L ALT (14-63) IU/L Alkaline Phosphatase (46-116) U/L Troponin I (0.000-0.056) ng/mL Total Protein (6.4-8.2) g/dL Albumin (3.4-5.0) g/dL Globulin (2.6-4.0) g/dL Albumin/Globulin Ratio (0.9-1.6) SARS-CoV-2 RNA (KEI) NEGATIVE (NEGATIVE) Meds: Medications Generic Name Dose Route Start Last Admin Trade Name Freq PRN Reason Stop Dose Admin Acetaminophen 500 mg 02/01/20 18:16 Tylenol Extra Strength PO Q12H PRN Pain Apixaban 5 mg 02/01/20 21:00 Eliquis PO BID JARVIS Duloxetine HCl 120 mg 02/01/20 21:00 Cymbalta PO BEDTIME JARVIS Melatonin 3 mg 02/01/20 18:20 Melatonin PO BEDTIME PRN Insomnia Non-Formulary Medication 2 mg 02/01/20 18:21 Lorazepam PO TID PRN Anxiety Sodium Chloride 10 ml 02/01/20 13:17 02/01/20 14:44 Saline Flush FLUSH 10 ml ASDIRECTED PRN Administration Keep Vein Open Sodium Chloride 2.5 ml 02/01/20 13:17 02/01/20 14:44 Saline Flush FLUSH 2.5 ml ASDIRECTED PRN Administration Keep Vein Open Tramadol HCl 100 mg 02/01/20 18:21 Ultram PO BID PRN Pain Discontinued Medications Generic Name Dose Route Start Last Admin Trade Name Freq PRN Reason Stop Dose Admin Aspirin 324 mg 02/01/20 14:24 02/01/20 14:44 Aspirin PO 02/01/20 14:25 324 mg ONETIME ONE Administration Iopamidol 100 ml 02/01/20 14:42 02/01/20 14:43 Isovue Multipack-370 (76%) IVPUSH 02/01/20 14:43 100 ml ONETIME STA Administration Departure - Departure Time of Disposition: 14:29 Disposition: Admitted As Inpatient 67 Condition: Good Clinical Impression: Ischemic stroke - Discharge Information Sepsis Event Note (ED) - Focused Exam Vital Signs: Vital Signs Pulse Resp BP Pulse Ox 02/01/20 13:13 72 18 109/47 L 92 L - My Orders Last 24 Hours: My Active Orders 02/01/20 13:17 Cardiac Monitoring [RC] . DIRECTED EKG Documentation Completion [RC] STAT Pulse Oximetry [RC] ASDIRECTED Sodium Chloride 0.9% [Saline Flush] 10 ml FLUSH ASDIRECTED PRN Sodium Chloride 0.9% [Saline Flush] 2.5 ml FLUSH ASDIRECTED PRN Saline Lock Insert [OM.PC] Stat 02/01/20 14:23 Assess Neurological Status [RC] CONTINUOUS Cardiac Monitoring [RC] CONTINUOUS Communication Order [RC] STAT Height and Weight [RC] UPON NIH Stroke Scale [RC] STAT Nursing Bedside Swallow Screen [RC] STAT 02/01/20 14:24 Admission Status [Patient Status] [ADT] Stat - Assessment/Plan Last 24 Hours: My Active Orders 02/01/20 13:17 Cardiac Monitoring [RC] . DIRECTED EKG Documentation Completion [RC] STAT Pulse Oximetry [RC] ASDIRECTED Sodium Chloride 0.9% [Saline Flush] 10 ml FLUSH ASDIRECTED PRN Sodium Chloride 0.9% [Saline Flush] 2.5 ml FLUSH ASDIRECTED PRN Saline Lock Insert [OM.PC] Stat 02/01/20 14:23 Assess Neurological Status [RC] CONTINUOUS Cardiac Monitoring [RC] CONTINUOUS Communication Order [RC] STAT Height and Weight [RC] UPON NIH Stroke Scale [RC] STAT Nursing Bedside Swallow Screen [RC] STAT 02/01/20 14:24 Admission Status [Patient Status] [ADT] Stat
--- NOTE | 2020-02-01 13:39 | CT ---
Head CT Technique: Multiple axial sections through the brain were obtained. Intravenous contrast was not utilized. Comparison: Prior head CT study of 09/20/19. Findings: Ventricles are dilated which are asymmetric in size which is a stable finding. Sulci over the convexities are also dilated. No abnormal parenchymal densities are seen. No evidence of intracranial hemorrhage. No midline shift or mass-effect is seen. Bone window settings were reviewed. Visualized mastoid sinuses are clear. Mild mucosal thickening seen within the ethmoid sinuses. No acute calvarial finding is seen. Impression: 1. No acute intracranial abnormality is seen. 2. Stable senescent change. Minimal paranasal sinus findings. Diagnostic code #2 This report was dictated in MDT
[2020-02-01 13:51] LABS: BLOOD UREA NITROGEN,BUN 15 mg/dL (7.0-18.0); CARBON DIOXIDE,CO2 24.7 mmol/L (21.0-32.0); CHLORIDE,CL 105 mmol/L (98-107); GLUCOSE RANDOM 98 mg/dL (74-106); SODIUM,NA 139 mmol/L (136-145)
--- NOTE | 2020-02-01 13:53 | CR ---
Chest: Portable view of the chest was obtained. Comparison: Prior chest x-ray of 09/20/19. Heart size and mediastinum are normal. Lung markings are slightly increased which are believed to be chronic. Slight areas of linear scarring are noted. Areas of pleural thickening are seen along the right lateral chest. Pacemaker is noted. Surgical clips are seen within the left upper abdomen. Impression: 1. Findings as described above. 2. Nothing acute is appreciated. Diagnostic code #2 This report was dictated in MDT
--- NOTE | 2020-02-01 14:09 | CT ---
CT neck Technique: Multiple axial sections through the neck were obtained. Study performed as a CT neck angiogram and contrast was therefore utilized during the arterial phase. Multiple MIP images were obtained. Limitations: There is motion artifact which diminishes details. Findings: There is narrowing of the proximal right internal carotid artery. This occurs in an area of motion artifact which makes accurate measurement difficult but appears to cause narrowing in the range of 50-60 percent. Left internal carotid artery is patent. There is mild atherosclerotic change within the left carotid bulb. Common carotid arteries appear patent. There is atherosclerotic change noted within the right external carotid artery. Left external carotid artery appears patent. Other portions of the internal carotid artery are patent. Vertebral arteries shows a dominant left vertebral artery. Distal right vertebral artery is very diminutive near the junction to the basilar artery and uncertain if this is due to stenosis or simply due to poor contrast enhancement. Basilar artery is patent. Impression: 1. Motion artifact which slightly diminishes details. 2. Stenosis appears to be present within the proximal right internal carotid artery of 50-60 percent. As mentioned above, this occurs in an area of motion artifact. 3. Mild atherosclerotic plaque within the left carotid bulb. 4. Poorly seen distal right vertebral artery, uncertain if this is due to stenosis or due to poor contrast enhancement. Basilar artery appears normal in appearance. Diagnostic code #3 This report was dictated in MDT
--- NOTE | 2020-02-01 14:13 | CT ---
CT angiogram of brain Technique: Multiple axial sections through the brain were obtained. Study obtained during the arterial phase. Multiple MIP images were obtained. Findings: Basilar artery is patent. Basilar artery appears patent into both posterior cerebral arteries. Carotid siphon is patent into the middle cerebral arteries and anterior cerebral arteries. No focal stenosis is seen within the anterior or posterior circulation. No discrete aneurysm is appreciated. Impression: 1. No abnormality is appreciated on CT angiogram of the brain. Diagnostic code #1 This report was dictated in MDT
[2020-02-01] MEDS ORDERED: Aspirin 81 MG Tab.Chew PO ONE (14:24)
[2020-02-01] MEDS ORDERED: Iopamidol 755 MG/ML 500 ML Multipack Bottle IVPUSH STA (14:42)
--- NOTE | 2020-02-01 17:09 | PCM.HP.2 ---
H&P History of Present Illness - General Date of Service: 02/01/20 Admit Problem/Dx: Admission Diagnosis/Problem Admission Diagnosis/Problem Ischemic stroke Source of Information: Patient History Limitations: Reports: No Limitations - History of Present Illness Initial Comments - Free Text/Narative: Patient is a 61-year-old female with significant past medical history of CVA and multiple TIAs, hyperlipidemia, hypertension, atrial fibrillation on Xarelto presenting to the ED via ambulance for multiple falls. Patient to ED physician endorse left hand weakness around 8 AM this morning while trying to eat (pt states she is ambidexterous) . Patient also noticed some left lower extremity weakness as well. Patient on her way to an ophthalmology appointment had fallen and EMS was called and patient was transported to the ED. ED course: Difficulty using left arm, left upper extremity and left leg; denied any other significant symptoms. Patient was 5 hours 10 minutes from onset of symptoms; TPA was not provided. EKG: Atrial paced rhythm Troponin negative. CT angiogram of neck and head showed proximal right ICA stenosis 50 to 60% mild atherosclerotic plaque within the left carotid bulb and poorly seen distal right vertebral artery CT angio head did not show any significant findings. Chest x-ray was clear. Bedside: Patient endorsed dysuria x2 days. Denies any fevers, chills, body aches. Endorse story from above and mentions the falling at home as well (last night x 1) without any head trauma and or loss of consciousness. Of note patient does at baseline not use her right lower extremity due to numerous right hip surgeries. Patient does not walk at baseline and uses a motorized scooter (can stand). Patient is complaining of fatigue and right hip pain at this time. - Related Data Allergies/Adverse Reactions: Allergies Allergy/AdvReac Type Severity Reaction Status Date / Time codeine Allergy Intermediate Airway Verified 02/01/20 17:31 Tightness meperidine HCl [From Demerol] Allergy Intermediate Airway Verified 02/01/20 17:31 Tightness morphine Allergy Intermediate Airway Verified 02/01/20 17:31 Tightness oxycodone [Oxycodone] Allergy Intermediate Airway Verified 02/01/20 17:31 Tightness lidocaine Allergy Anaphylactic Verified 02/01/20 17:31 Shock orphenadrine Allergy Airway Verified 02/01/20 17:31 Tightness varenicline tartrate Allergy Airway Verified 02/01/20 17:31 [From Chantix] Tightness Home Medications: Home Meds DULoxetine HCl [Duloxetine HCl] 120 mg PO BEDTIME 12/22/13 [History] Apixaban [Eliquis] 5 mg PO BID 08/14/15 [History] LORazepam 2 mg PO TID PRN 08/14/15 [History] traMADol HCl [Ultram] 100 mg PO BID PRN 08/14/15 [History] Esomeprazole [NexIUM] 40 mg PO DAILY 08/21/17 [History] Spironolact/Hydrochlorothiazid [Aldactazide 25-25] 2 tab PO DAILY 08/21/17 [History] dilTIAZem HCL [Cardizem Cd] 360 mg PO DAILY 08/21/17 [History] Olmesartan Medoxomil 40 mg PO DAILY 09/07/19 [History] Ampicillin [Principen] 500 mg PO Q6H #20 cap 09/09/19 [Rx] Past Medical History HEENT History: Reports: Allergic Rhinitis, Impaired Vision, Other (See Below) Other HEENT History: wears reading glasses Cardiovascular History: Reports: Afib, High Cholesterol, Hypertension Respiratory History: Reports: Bronchitis, Recurrent, COPD, SOB, Other (See Below) Other Respiratory History: was tested for sleep apnea last week, no results yet Gastrointestinal History: Reports: Cholelithiasis, GERD Genitourinary History: Reports: None DIETARY COOK History: Reports: None Musculoskeletal History: Reports: Arthritis, Fracture, Osteoporosis Other Musculoskeletal History: states chronic back and right hip pain, hx of fx right wrist and right tib-fib, wheelchair bound due to hip pain and major SOB Neurological History: Reports: TIA Other Neuro History: has has TIA x2, 2009 and 2013. No residual weakness, no intervention done except physical therapy Psychiatric History: Reports: Bipolar, Depression Endocrine/Metabolic History: Reports: Obesity/BMI 30+, Other (See Below) Other Endocrine/Metabolic History: states has 2 "lumps" on thyroid as noted on ultrasound Hematologic History: Reports: None Immunologic History: Reports: None Oncologic (Cancer) History: Reports: None Dermatologic History: Reports: None - Infectious Disease History Infectious Disease History: Reports: Measles - Past Surgical History Head Surgeries/Procedures: Reports: None HEENT Surgical History: Reports: Cataract Surgery GI Surgical History: Reports: Bariatric Procedure, Cholecystectomy Female Surgical History: Reports: None Neurological Surgical History: Reports: None Musculoskeletal Surgical History: Reports: Hip Replacement, Knee Replacement, ORIF Social & Family History - Family History Family Medical History: Noncontributory - Caffeine Use Caffeine Use: Reports: Coffee H&P Review of Systems - Review of Systems: Review Of Systems: See Below General: Reports: Weakness, Fatigue. Denies: Fever, Chills, Malaise HEENT: Reports: No Symptoms Pulmonary: Reports: No Symptoms Cardiovascular: Reports: No Symptoms Gastrointestinal: Reports: No Symptoms. Denies: Constipation, Diarrhea, Decreased Appetite, Nausea Genitourinary: Reports: Dysuria, Burning. Denies: Pain, Urgency, Incontinence, Hematuria Musculoskeletal: Reports: Joint Pain Skin: Reports: No Symptoms Psychiatric: Denies: Confusion, Depression Neurological: Reports: Headache, Numbness, Weakness, Gait Disturbance. Denies: Confusion, Dizziness, Paresthesia Hematologic/Lymphatic: Reports: No Symptoms Exam - Exam Exam: See Below - Vital Signs Vital Signs: Last Vital Signs Temp Pulse 72 02/01/20 13:13 Resp 18 02/01/20 13:13 BP 109/47 L 02/01/20 13:13 Pulse Ox 92 L 02/01/20 13:13 Weight: 81.647 kg - Exam Quality Assessment: No: Supplemental Oxygen General: Alert, Oriented, Cooperative HEENT: EOMI, Mucosa Moist & [place] Neck: Supple, Trachea Midline Lungs: Other (audible inspriatory/expiratory wheezing, no rales and or rhonchi ) Cardiovascular: Regular Rate, Irregular Rhythm GI/Abdominal Exam: Soft, Other (mild suprapubic tenderness ; no flank tenderness noted ) Extremities: Non-Tender, No Pedal Edema Skin: Warm Neurological: Cranial Nerves Intact, Other (r). No: Strength Equal Bilateral Neuro Extensive - Mental Status: Alert, Oriented x3, Normal Mood/Affect, Normal Cognition, Memory Intact Neuro Extensive - Motor, Sensory, Reflexes: CN II-XII Intact. No: Normal Gait, Tongue Deviation (L), Tongue Deviation (R) (no facial palsy noted;no tongue deviation appreciated. decrease in sensation of right foot compalred to left, sensation discriminaition of upper extrmeities unequal ; could not stand for long enough w.o pain and wekaness eliicted. Axo x 3.....5/5 upper ext strength. left 4/5 strength ) Psychiatric: Alert, Normal Affect, Normal Mood - Patient Data Lab Results Last 24 hrs: Laboratory Results - last 24 hr 02/01/20 02/01/20 02/01/20 Range/Units 13:15 13:15 13:15 WBC 12.03 H (4.0-11.0) K/uL RBC 4.08 L (4.30-5.90) M/uL Hgb 12.3 (12.0-16.0) g/dL Hct 38.4 (36.0-46.0) % MCV 94.1 (80.0-98.0) fL MCH 30.1 (27.0-32.0) pg MCHC 32.0 (31.0-37.0) g/dL RDW Std Deviation 46.8 (28.0-62.0) fl RDW Coeff of Brittny 14 (11.0-15.0) % Plt Count 259 (150-400) K/uL MPV 11.20 (7.40-12.00) fL Neut % (Auto) 67.4 (48.0-80.0) % Lymph % (Auto) 23.9 (16.0-40.0) % [place] % (Auto) 7.3 (0.0-15.0) % Eos % (Auto) 1.2 (0.0-7.0) % Baso % (Auto) 0.2 (0.0-1.5) % Neut # (Auto) 8.1 H (1.4-5.7) K/uL Lymph # (Auto) 2.9 H (0.6-2.4) K/uL [place] # (Auto) 0.9 H (0.0-0.8) K/uL Eos # (Auto) 0.1 (0.0-0.7) K/uL Baso # (Auto) 0.0 (0.0-0.1) K/uL Nucleated RBC % 0.0 /100WBC Nucleated RBCs # 0 K/uL INR 1.07 APTT 29.1 (18.6-31.3) SEC Sodium 139 (136-145) mmol/L Potassium 4.0 (3.5-5.1) mmol/L Chloride 105 (98-107) mmol/L Carbon Dioxide 24.7 (21.0-32.0) mmol/L BUN 15 (7.0-18.0) mg/dL Creatinine 1.3 H (0.6-1.0) mg/dL Est Cr Clr Drug Dosing TNP Estimated GFR (MDRD) 40.7 ml/min Glucose 98 (74-106) mg/dL Calcium 8.5 (8.5-10.1) mg/dL Total Bilirubin 0.2 (0.2-1.0) mg/dL AST 31 (15-37) IU/L ALT 43 (14-63) IU/L Alkaline Phosphatase 142 H (46-116) U/L Troponin I < 0.050 (0.000-0.056) ng/mL Total Protein 6.9 (6.4-8.2) g/dL Albumin 3.5 (3.4-5.0) g/dL Globulin 3.4 (2.6-4.0) g/dL Albumin/Globulin Ratio 1.0 (0.9-1.6) SARS-CoV-2 RNA (KEI) (NEGATIVE) 02/01/20 Range/Units 14:08 WBC (4.0-11.0) K/uL RBC (4.30-5.90) M/uL Hgb (12.0-16.0) g/dL Hct (36.0-46.0) % MCV (80.0-98.0) fL MCH (27.0-32.0) pg MCHC (31.0-37.0) g/dL RDW Std Deviation (28.0-62.0) fl RDW Coeff of Brittny (11.0-15.0) % Plt Count (150-400) K/uL MPV (7.40-12.00) fL Neut % (Auto) (48.0-80.0) % Lymph % (Auto) (16.0-40.0) % [place] % (Auto) (0.0-15.0) % Eos % (Auto) (0.0-7.0) % Baso % (Auto) (0.0-1.5) % Neut # (Auto) (1.4-5.7) K/uL Lymph # (Auto) (0.6-2.4) K/uL [place] # (Auto) (0.0-0.8) K/uL Eos # (Auto) (0.0-0.7) K/uL Baso # (Auto) (0.0-0.1) K/uL Nucleated RBC % /100WBC Nucleated RBCs # K/uL INR APTT (18.6-31.3) SEC Sodium (136-145) mmol/L Potassium (3.5-5.1) mmol/L Chloride (98-107) mmol/L Carbon Dioxide (21.0-32.0) mmol/L BUN (7.0-18.0) mg/dL Creatinine (0.6-1.0) mg/dL Est Cr Clr Drug Dosing Estimated GFR (MDRD) ml/min Glucose (74-106) mg/dL Calcium (8.5-10.1) mg/dL Total Bilirubin (0.2-1.0) mg/dL AST (15-37) IU/L ALT (14-63) IU/L Alkaline Phosphatase (46-116) U/L Troponin I (0.000-0.056) ng/mL Total Protein (6.4-8.2) g/dL Albumin (3.4-5.0) g/dL Globulin (2.6-4.0) g/dL Albumin/Globulin Ratio (0.9-1.6) SARS-CoV-2 RNA (KEI) NEGATIVE (NEGATIVE) Result Diagrams: 02/01/20 13:15 02/01/20 13:15 Sepsis Event Note - Evaluation Sepsis Screening Result: No Definite Risk - Focused Exam Vital Signs: Vital Signs Pulse Resp BP Pulse Ox 02/01/20 13:13 72 18 109/47 L 92 L Problem List Initiated/Reviewed/Updated: Yes Orders Last 24hrs: Active Orders 24 hr Category Date Time Status Admission Status [Patient Status] [ADT] Stat ADT 02/01/20 14:24 Active Assess Neurological Status [RC] CONTINUOUS Care 02/01/20 14:23 Active Cardiac Monitoring [RC] . DIRECTED Care 02/01/20 13:17 Active Cardiac Monitoring [RC] CONTINUOUS Care 02/01/20 14:23 Active Communication Order [RC] STAT Care 02/01/20 14:23 Active EKG Documentation Completion [RC] STAT Care 02/01/20 13:17 Active Height and Weight [RC] UPON Care 02/01/20 14:23 Active NIH Stroke Scale [RC] STAT Care 02/01/20 14:23 Active Notify Provider Consults [RC] ASDIRECTED Care 02/01/20 16:53 Active Nursing Bedside Swallow Screen [RC] STAT Care 02/01/20 14:23 Active Pulse Oximetry [RC] ASDIRECTED Care 02/01/20 13:17 Active Consult to Physician [CONS] Routine Cons 02/01/20 16:53 Active Nothing Per Oral Diet [DIET] Diet 02/01/20 Lunch Active UA RFX FR[place] AND CULT IF INDIC [URIN] Routine Lab 02/01/20 16:46 Ordered Sodium Chloride 0.9% [Saline Flush] Med 02/01/20 13:17 Active 10 ml FLUSH ASDIRECTED PRN Sodium Chloride 0.9% [Saline Flush] Med 02/01/20 13:17 Active 2.5 ml FLUSH ASDIRECTED PRN Saline Lock Insert [OM.PC] Stat Oth 02/01/20 13:17 Ordered Medication Orders Sodium Chloride (Saline Flush) 10 ml FLUSH ASDIRECTED PRN PRN Reason: Keep Vein Open Last Admin: 02/01/20 14:44 Dose: 10 ml Documented by: ANA Sodium Chloride (Saline Flush) 2.5 ml FLUSH ASDIRECTED PRN PRN Reason: Keep Vein Open Last Admin: 02/01/20 14:44 Dose: 2.5 ml Documented by: ANA Assessment/Plan Comment:: Assessment: 1. Multiple falls +weakness with concerns for TIA/stroke 2. Dysuria 3. PMH: Afib on xarelto, CVA/TIAs, hyperlipidemia, hypertension, Admit inpatient. Full code. I's and O's per routine. Vitals per routine DVT: continue Xarelto GI: pantoprazole 40 daily Bedrest Heart healthy diet: passed bedside swallow Telemetry 1. Concerns for TIA/Stroke ; however since pacemaker in place; may not be able to get MRI, will consider repeat CT scan in 24 hours (Tomorrow 8AM). Attending spoke to Dr Chavez of Neurology: official consult placed. Continue Eliquis for Afib. Repeat Head CT w.o contrast in AM Carotid U/S Duplex in AM pt does c.o of dysuria; straight cath .w. UA w. reflex ordered. Will provide CTX once UA collected. Hx of Group B strep UA sensitive to CTX on past admission Hold BP Meds; allow for permissive HTN:140-180 systolics 2. KEVAN: mild; continue maintenance fluids and recheck in AM 3. Continue to monitor
[2020-02-01] MEDS ORDERED: Melatonin 3 MG Tab PO PRN (18:20)
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
[2020-02-01] MEDS ORDERED: Simvastatin 40 MG Tab PO SCH (21:00)
[2020-02-01] MEDS: Acetaminophen 500 MG Tab PO PRN (21:49)
[2020-02-01] MEDS: DULoxetine 60 MG Cap PO SCH (23:33)
[2020-02-01] MEDS: Apixaban 5 MG Tab PO SCH (23:33)
[2020-02-02 05:42] LABS: HEMOGLOBIN A1C 6.3 % (4.5-6.2)
[2020-02-02 05:53] LABS: CARBON DIOXIDE,CO2 29.2 mmol/L (21.0-32.0); POTASSIUM,K 3.6 mmol/L (3.5-5.1)
[2020-02-02] MEDS: traMADol 50 MG Tab PO PRN ×2 (05:57→23:43)
[2020-02-02] MEDS: Apixaban 5 MG Tab PO SCH ×2 (08:59→21:01)
[2020-02-02] MEDS: Acetaminophen 500 MG Tab PO PRN (08:59)
--- NOTE | 2020-02-02 11:57 | PCM.PN ---
- General Info Date of Service: 02/02/20 Subjective Update: Bedside: no new complaints; mentions hip pain and mild dysuria , unchanged from admission. Otherwise requesting to go home Functional Status: Reports: Pain Controlled - Review of Systems General: Reports: No Symptoms. Denies: Fever HEENT: Reports: No Symptoms Pulmonary: Reports: No Symptoms Cardiovascular: Reports: No Symptoms Gastrointestinal: Reports: No Symptoms Genitourinary: Reports: Dysuria. Denies: Frequency, Pain, Urgency Musculoskeletal: Reports: Joint Pain Neurological: Reports: Pre-Existing Deficit. Denies: Confusion, Dizziness, Headache, Syncope, Trouble Speaking, Change in Speech Psychiatric: Reports: No Symptoms - Patient Data Vitals - Most Recent: Last Vital Signs Temp 97.9 F 02/02/20 08:00 Pulse 61 02/02/20 08:00 Resp 20 02/02/20 08:00 BP 116/58 L 02/02/20 08:00 Pulse Ox 92 L 02/02/20 08:00 Weight - Most Recent: 81.647 kg I&O - Last 24 Hours: Intake & Output 02/01/20 02/02/20 02/02/20 22:59 06:59 14:59 Intake Total 794 Output Total 950 Balance -156 Lab Results Last 24 Hours: Laboratory Results - last 24 hr 02/01/20 02/01/20 02/01/20 Range/Units 13:15 13:15 13:15 WBC 12.03 H (4.0-11.0) K/uL RBC 4.08 L (4.30-5.90) M/uL Hgb 12.3 (12.0-16.0) g/dL Hct 38.4 (36.0-46.0) % MCV 94.1 (80.0-98.0) fL MCH 30.1 (27.0-32.0) pg MCHC 32.0 (31.0-37.0) g/dL RDW Std Deviation 46.8 (28.0-62.0) fl RDW Coeff of Brittny 14 (11.0-15.0) % Plt Count 259 (150-400) K/uL MPV 11.20 (7.40-12.00) fL Neut % (Auto) 67.4 (48.0-80.0) % Lymph % (Auto) 23.9 (16.0-40.0) % Mcminn % (Auto) 7.3 (0.0-15.0) % Eos % (Auto) 1.2 (0.0-7.0) % Baso % (Auto) 0.2 (0.0-1.5) % Neut # (Auto) 8.1 H (1.4-5.7) K/uL Lymph # (Auto) 2.9 H (0.6-2.4) K/uL Mcminn # (Auto) 0.9 H (0.0-0.8) K/uL Eos # (Auto) 0.1 (0.0-0.7) K/uL Baso # (Auto) 0.0 (0.0-0.1) K/uL Nucleated RBC % 0.0 /100WBC Nucleated RBCs # 0 K/uL INR 1.07 APTT 29.1 (18.6-31.3) SEC Sodium 139 (136-145) mmol/L Potassium 4.0 (3.5-5.1) mmol/L Chloride 105 (98-107) mmol/L Carbon Dioxide 24.7 (21.0-32.0) mmol/L BUN 15 (7.0-18.0) mg/dL Creatinine 1.3 H (0.6-1.0) mg/dL Est Cr Clr Drug Dosing TNP Estimated GFR (MDRD) 40.7 ml/min Glucose 98 (74-106) mg/dL Hemoglobin A1c (4.5-6.2) % Calcium 8.5 (8.5-10.1) mg/dL Total Bilirubin 0.2 (0.2-1.0) mg/dL AST 31 (15-37) IU/L ALT 43 (14-63) IU/L Alkaline Phosphatase 142 H (46-116) U/L Troponin I < 0.050 (0.000-0.056) ng/mL Total Protein 6.9 (6.4-8.2) g/dL Albumin 3.5 (3.4-5.0) g/dL Globulin 3.4 (2.6-4.0) g/dL Albumin/Globulin Ratio 1.0 (0.9-1.6) Triglycerides (0-200) mg/dL Cholesterol (50-200) mg/dL LDL Cholesterol, Calc (60-180) mg/dL VLDL Cholesterol (5-55) mg/dL HDL Cholesterol (40-60) mg/dL Cholesterol/HDL Ratio (3.3-6.0) Urine Color Urine Appearance Urine pH (5.0-8.0) Ur Specific [place] (1.001-1.035) Urine Protein (NEGATIVE) mg/dL Urine Glucose (UA) (NEGATIVE) mg/dL Urine Ketones (NEGATIVE) mg/dL Urine Occult Blood (NEGATIVE) Urine Nitrite (NEGATIVE) Urine Bilirubin (NEGATIVE) Urine Urobilinogen (<2.0) EU/dL Ur Leukocyte Esterase (NEGATIVE) SARS-CoV-2 RNA (KEI) (NEGATIVE) 02/01/20 02/01/20 02/02/20 Range/Units 14:08 21:42 05:15 WBC 9.60 (4.0-11.0) K/uL RBC 3.77 L (4.30-5.90) M/uL Hgb 11.3 L (12.0-16.0) g/dL Hct 36.0 (36.0-46.0) % MCV 95.5 (80.0-98.0) fL MCH 30.0 (27.0-32.0) pg MCHC 31.4 (31.0-37.0) g/dL RDW Std Deviation 48.4 (28.0-62.0) fl RDW Coeff of Brittny 14 (11.0-15.0) % Plt Count 234 (150-400) K/uL MPV 11.00 (7.40-12.00) fL Neut % (Auto) 60.6 (48.0-80.0) % Lymph % (Auto) 27.4 (16.0-40.0) % Mcminn % (Auto) 7.7 (0.0-15.0) % Eos % (Auto) 4.0 (0.0-7.0) % Baso % (Auto) 0.3 (0.0-1.5) % Neut # (Auto) 5.8 H (1.4-5.7) K/uL Lymph # (Auto) 2.6 H (0.6-2.4) K/uL Mcminn # (Auto) 0.7 (0.0-0.8) K/uL Eos # (Auto) 0.4 (0.0-0.7) K/uL Baso # (Auto) 0.0 (0.0-0.1) K/uL Nucleated RBC % 0.0 /100WBC Nucleated RBCs # 0 K/uL INR APTT (18.6-31.3) SEC Sodium (136-145) mmol/L Potassium (3.5-5.1) mmol/L Chloride (98-107) mmol/L Carbon Dioxide (21.0-32.0) mmol/L BUN (7.0-18.0) mg/dL Creatinine (0.6-1.0) mg/dL Est Cr Clr Drug Dosing Estimated GFR (MDRD) ml/min Glucose (74-106) mg/dL Hemoglobin A1c (4.5-6.2) % Calcium (8.5-10.1) mg/dL Total Bilirubin (0.2-1.0) mg/dL AST (15-37) IU/L ALT (14-63) IU/L Alkaline Phosphatase (46-116) U/L Troponin I (0.000-0.056) ng/mL Total Protein (6.4-8.2) g/dL Albumin (3.4-5.0) g/dL Globulin (2.6-4.0) g/dL Albumin/Globulin Ratio (0.9-1.6) Triglycerides (0-200) mg/dL Cholesterol (50-200) mg/dL LDL Cholesterol, Calc (60-180) mg/dL VLDL Cholesterol (5-55) mg/dL HDL Cholesterol (40-60) mg/dL Cholesterol/HDL Ratio (3.3-6.0) Urine Color YELLOW Urine Appearance CLEAR Urine pH 5.0 (5.0-8.0) Ur Specific [place] 1.015 (1.001-1.035) Urine Protein NEGATIVE (NEGATIVE) mg/dL Urine Glucose (UA) NEGATIVE (NEGATIVE) mg/dL Urine Ketones NEGATIVE (NEGATIVE) mg/dL Urine Occult Blood NEGATIVE (NEGATIVE) Urine Nitrite NEGATIVE (NEGATIVE) Urine Bilirubin NEGATIVE (NEGATIVE) Urine Urobilinogen 0.2 (<2.0) EU/dL Ur Leukocyte Esterase NEGATIVE (NEGATIVE) SARS-CoV-2 RNA (KEI) NEGATIVE (NEGATIVE) 02/02/20 02/02/20 Range/Units 05:15 05:15 WBC (4.0-11.0) K/uL RBC (4.30-5.90) M/uL Hgb (12.0-16.0) g/dL Hct (36.0-46.0) % MCV (80.0-98.0) fL MCH (27.0-32.0) pg MCHC (31.0-37.0) g/dL RDW Std Deviation (28.0-62.0) fl RDW Coeff of Brittny (11.0-15.0) % Plt Count (150-400) K/uL MPV (7.40-12.00) fL Neut % (Auto) (48.0-80.0) % Lymph % (Auto) (16.0-40.0) % Mcminn % (Auto) (0.0-15.0) % Eos % (Auto) (0.0-7.0) % Baso % (Auto) (0.0-1.5) % Neut # (Auto) (1.4-5.7) K/uL Lymph # (Auto) (0.6-2.4) K/uL Mcminn # (Auto) (0.0-0.8) K/uL Eos # (Auto) (0.0-0.7) K/uL Baso # (Auto) (0.0-0.1) K/uL Nucleated RBC % /100WBC Nucleated RBCs # K/uL INR APTT (18.6-31.3) SEC Sodium 144 (136-145) mmol/L Potassium 3.6 (3.5-5.1) mmol/L Chloride 108 H (98-107) mmol/L Carbon Dioxide 29.2 (21.0-32.0) mmol/L BUN 16 (7.0-18.0) mg/dL Creatinine 1.1 H (0.6-1.0) mg/dL Est Cr Clr Drug Dosing 44.05 Estimated GFR (MDRD) 49.4 ml/min Glucose 101 (74-106) mg/dL Hemoglobin A1c 6.3 H (4.5-6.2) % Calcium 8.0 L (8.5-10.1) mg/dL Total Bilirubin (0.2-1.0) mg/dL AST (15-37) IU/L ALT (14-63) IU/L Alkaline Phosphatase (46-116) U/L Troponin I (0.000-0.056) ng/mL Total Protein (6.4-8.2) g/dL Albumin (3.4-5.0) g/dL Globulin (2.6-4.0) g/dL Albumin/Globulin Ratio (0.9-1.6) Triglycerides 148 (0-200) mg/dL Cholesterol 147 (50-200) mg/dL LDL Cholesterol, Calc 89 (60-180) mg/dL VLDL Cholesterol 29 (5-55) mg/dL HDL Cholesterol 28 L (40-60) mg/dL Cholesterol/HDL Ratio 5.3 (3.3-6.0) Urine Color Urine Appearance Urine pH (5.0-8.0) Ur Specific [place] (1.001-1.035) Urine Protein (NEGATIVE) mg/dL Urine Glucose (UA) (NEGATIVE) mg/dL Urine Ketones (NEGATIVE) mg/dL Urine Occult Blood (NEGATIVE) Urine Nitrite (NEGATIVE) Urine Bilirubin (NEGATIVE) Urine Urobilinogen (<2.0) EU/dL Ur Leukocyte Esterase (NEGATIVE) SARS-CoV-2 RNA (KEI) (NEGATIVE) Med Orders - Current: Current Medications Acetaminophen (Tylenol Extra Strength) 500 mg PO Q12H PRN PRN Reason: Pain Last Admin: 02/02/20 08:59 Dose: 500 mg Documented by: Apixaban (Eliquis) 5 mg PO BID [facility] Last Admin: 02/02/20 08:59 Dose: 5 mg Documented by: Duloxetine HCl (Cymbalta) 120 mg PO BEDTIME [facility] Last Admin: 02/01/20 23:33 Dose: 120 mg Documented by: Lorazepam (Ativan) 2 mg PO TID PRN PRN Reason: Anxiety Melatonin (Melatonin) 3 mg PO BEDTIME PRN PRN Reason: Insomnia Simvastatin (Zocor) 40 mg PO BEDTIME [facility] Last Admin: 02/01/20 21:15 Dose: 40 mg Documented by: Sodium Chloride (Saline Flush) 10 ml FLUSH ASDIRECTED PRN PRN Reason: Keep Vein Open Last Admin: 02/01/20 14:44 Dose: 10 ml Documented by: Sodium Chloride (Saline Flush) 2.5 ml FLUSH ASDIRECTED PRN PRN Reason: Keep Vein Open Last Admin: 02/01/20 14:44 Dose: 2.5 ml Documented by: Tramadol HCl (Ultram) 100 mg PO BID PRN PRN Reason: Pain Last Admin: 02/02/20 05:57 Dose: 100 mg Documented by: Discontinued Medications Aspirin (Aspirin) 324 mg PO ONETIME ONE Stop: 02/01/20 14:25 Last Admin: 02/01/20 14:44 Dose: 324 mg Documented by: Iopamidol (Isovue Multipack-370 (76%)) 100 ml IVPUSH ONETIME STA Stop: 02/01/20 14:43 Last Admin: 02/01/20 14:43 Dose: 100 ml Documented by: - Exam Quality Assessment: No: Supplemental Oxygen General: Alert, Oriented, Cooperative, No Acute Distress HEENT: EOMI, Mucous Membr. Moist/[place] Neck: Supple Lungs: Normal Respiratory Effort, Other (mild wheezing appreciated ) Cardiovascular: Regular Rate GI/Abdominal Exam: Soft, Non-Tender, Other (no suprapubic tenderness ) Neurological: Other (baseline right foot decrease in sensation. no pronator drift, can shrug shoulders with resistance . no tongue devaition. A/O x 3 . no new compalints since admission ) Sepsis Event Note - Evaluation Sepsis Screening Result: No Definite Risk - Focused Exam Vital Signs: Vital Signs Temp Pulse Resp BP Pulse Ox 02/02/20 08:00 97.9 F 61 20 116/58 L 92 L 02/02/20 04:22 96.1 F L 63 18 118/63 92 L 02/02/20 00:45 96.5 F L 64 19 115/59 L 93 L - Problem List Review Problem List Initiated/Reviewed/Updated: Yes - My Orders Last 24 Hours: My Active Orders 02/01/20 Dinner Heart Healthy Diet [DIET] 02/01/20 17:34 Code Status [Resuscitation Status] Routine 02/01/20 17:36 Urinary Catheter Assessment [RC] ASDIRECTED 02/01/20 17:45 Regan Catheter Insertion [Insert Urinary Catheter] [OM.PC] Q24H 02/01/20 18:16 Acetaminophen [Tylenol Extra Strength] 500 mg PO Q12H PRN 02/01/20 18:20 Melatonin 3 mg PO BEDTIME PRN 02/01/20 18:21 LORazepam [Ativan] 2 mg PO TID PRN traMADol [Ultram] 100 mg PO BID PRN 02/01/20 21:00 Simvastatin [Zocor] 40 mg PO BEDTIME 02/01/20 22:00 Apixaban [Eliquis] 5 mg PO BID DULoxetine [Cymbalta] 120 mg PO BEDTIME 02/02/20 09:02 Echo Comp wo Cont [US] Urgent 02/02/20 11:02 CULTURE URINE [RM] Routine 02/02/20 11:35 Head wo Cont [CT] Urgent 02/02/20 18:16 VL Duplex Carotid Comp [US] Urgent 02/03/20 05:11 BMP [BASIC METABOLIC PANEL,BMP] [CHEM] AM CBC WITH AUTO DIFF [HEME] AM 02/04/20 05:11 BMP [BASIC METABOLIC PANEL,BMP] [CHEM] AM CBC WITH AUTO DIFF [HEME] AM - Plan Plan:: Assessment: 1. Multiple falls +weakness with concerns for TIA/stroke 2. Dysuria 3. PMH: Afib on xarelto, CVA/TIAs, hyperlipidemia, hypertension, Admit inpatient. Full code. I's and O's per routine. Vitals per routine DVT: continue Xarelto GI: pantoprazole 40 daily Bedrest Heart healthy diet: passed bedside swallow Telemetry 1. Concerns for TIA/Stroke ; however since pacemaker in place; may not be able to get MRI, Repeat CT head this AM for stroke evolution concern Attending spoke to Dr Chavez of Neurology: official consult placed. Continue Eliquis for Afib. Carotid U/S Duplex in AM Echo ordered urine culture ordered : will treat accordingly Hold BP Meds; allow for permissive HTN:140-180 systolics 2. KEVAN: mild; continue maintenance fluids and recheck in AM 3. Continue to monitor
--- NOTE | 2020-02-02 12:12 | US ---
Carotid ultrasound: Multiple real-time images were obtained. Comparison: Previous CT angiogram of neck dated 02/01/20. Findings: Plaque: Mild amount of scattered plaque noted on both sides. Velocity measurements: Right side: CCA has a peak systolic velocity of 1.18 m/s. ICA has a peak systolic velocity of 1.17 m/s and peak end-diastolic velocity of 0.58 m/s. ECA has a peak systolic velocity of 0.79 m/s. Vertebral artery has a peak systolic velocity of 0.54 m/s. ICA/CCA ratio is 1.52. Left side: CCA has a peak systolic velocity of 0.98 m/s. ICA has a peak systolic velocity of 1.91 m/s and peak end-diastolic velocity of 0.64 m/s. ECA has a peak systolic velocity of 1.02 m/s. Vertebral artery has a peak systolic velocity of 0.64 m/s. ICA/CCA ratio is 1.94. Impression: 1. Scattered plaque. 2. Elevated velocity measurements within the left internal carotid artery at the lower limits of 50-69 percent. 3. Velocity measurements within the right internal carotid artery corresponds to stenosis at the upper range of 1-49 percent. Diagnostic code #3 This report was dictated in MDT
--- NOTE | 2020-02-02 12:20 | CT ---
Head CT Technique: Multiple axial sections through the brain were obtained. Intravenous contrast was not utilized. Comparison: Prior head CT exam of 02/01/20. Findings: Ventricles are asymmetrically dilated in relation to the sulci over the convexities. This finding is stable from prior exam. No abnormal parenchymal densities are seen. No evidence of intracranial hemorrhage. No midline shift or mass-effect is appreciated. Bone window settings were reviewed which showed no acute findings within the visualized paranasal sinuses or mastoid sinuses. No acute calvarial finding is seen. Impression: 1. Generalized atrophy with greater central component. 2. No acute intracranial abnormality is appreciated. Note: Consider brain MRI with diffusion to further evaluate. Diagnostic code #2 This report was dictated in MDT
[2020-02-02] MEDS: cefTRIAXone 1 GM in Premix Bag 1 BAG IV SCH (13:29)
[2020-02-02] MEDS: Acetaminophen/HYDROcodone 325-10 MG Tab PO PRN ×2 (13:44→21:00)
[2020-02-02] MEDS: Gabapentin 300 MG Cap PO SCH ×2 (13:45→23:42)
--- NOTE | 2020-02-02 16:22 | PCM.CONSN ---
- General Info Date of Service: 02/02/20 Subjective Update: She notes that her strength in her left arm and leg is nearly back to baseline. Her chronic hip pain is better since hydrocodone was restarted. She had burning with urinary this morning, but it was gone as of this afternoon. She notes that she does not walk at baseline, which she related to her hips. She is able to transfer independently at baseline. - Patient Data Vitals - Most Recent: Last Vital Signs Temp 36.8 C 02/02/20 16:00 Pulse 69 02/02/20 16:00 Resp 16 02/02/20 16:00 BP 142/76 H 02/02/20 16:00 Pulse Ox 95 02/02/20 16:00 Weight - Most Recent: 81.647 kg I&O - Last 24 Hours: Intake & Output 02/02/20 02/02/20 02/02/20 06:59 14:59 22:59 Intake Total 794 Output Total 950 Balance -156 Imaging Impressions - Last 24 Hours: Carotid US - mild right and moderate left carotid stenosi CT head showed atrophy, no evidence of stroke Lab Results Last 24 Hours: Laboratory Results - last 24 hr 02/01/20 02/02/20 02/02/20 Range/Units 21:42 05:15 05:15 WBC 9.60 (4.0-11.0) K/uL RBC 3.77 L (4.30-5.90) M/uL Hgb 11.3 L (12.0-16.0) g/dL Hct 36.0 (36.0-46.0) % MCV 95.5 (80.0-98.0) fL MCH 30.0 (27.0-32.0) pg MCHC 31.4 (31.0-37.0) g/dL RDW Std Deviation 48.4 (28.0-62.0) fl RDW Coeff of Brittny 14 (11.0-15.0) % Plt Count 234 (150-400) K/uL MPV 11.00 (7.40-12.00) fL Neut % (Auto) 60.6 (48.0-80.0) % Lymph % (Auto) 27.4 (16.0-40.0) % Desha % (Auto) 7.7 (0.0-15.0) % Eos % (Auto) 4.0 (0.0-7.0) % Baso % (Auto) 0.3 (0.0-1.5) % Neut # (Auto) 5.8 H (1.4-5.7) K/uL Lymph # (Auto) 2.6 H (0.6-2.4) K/uL Desha # (Auto) 0.7 (0.0-0.8) K/uL Eos # (Auto) 0.4 (0.0-0.7) K/uL Baso # (Auto) 0.0 (0.0-0.1) K/uL Nucleated RBC % 0.0 /100WBC Nucleated RBCs # 0 K/uL Sodium 144 (136-145) mmol/L Potassium 3.6 (3.5-5.1) mmol/L Chloride 108 H (98-107) mmol/L Carbon Dioxide 29.2 (21.0-32.0) mmol/L BUN 16 (7.0-18.0) mg/dL Creatinine 1.1 H (0.6-1.0) mg/dL Est Cr Clr Drug Dosing 44.05 mL/min Estimated GFR (MDRD) 49.4 ml/min Glucose 101 (74-106) mg/dL Hemoglobin A1c (4.5-6.2) % Calcium 8.0 L (8.5-10.1) mg/dL Triglycerides 148 (0-200) mg/dL Cholesterol 147 (50-200) mg/dL LDL Cholesterol, Calc 89 (60-180) mg/dL VLDL Cholesterol 29 (5-55) mg/dL HDL Cholesterol 28 L (40-60) mg/dL Cholesterol/HDL Ratio 5.3 (3.3-6.0) Urine Color YELLOW Urine Appearance CLEAR Urine pH 5.0 (5.0-8.0) Ur Specific [place] 1.015 (1.001-1.035) Urine Protein NEGATIVE (NEGATIVE) mg/dL Urine Glucose (UA) NEGATIVE (NEGATIVE) mg/dL Urine Ketones NEGATIVE (NEGATIVE) mg/dL Urine Occult Blood NEGATIVE (NEGATIVE) Urine Nitrite NEGATIVE (NEGATIVE) Urine Bilirubin NEGATIVE (NEGATIVE) Urine Urobilinogen 0.2 (<2.0) EU/dL Ur Leukocyte Esterase NEGATIVE (NEGATIVE) 02/02/20 Range/Units 05:15 WBC (4.0-11.0) K/uL RBC (4.30-5.90) M/uL Hgb (12.0-16.0) g/dL Hct (36.0-46.0) % MCV (80.0-98.0) fL MCH (27.0-32.0) pg MCHC (31.0-37.0) g/dL RDW Std Deviation (28.0-62.0) fl RDW Coeff of Brittny (11.0-15.0) % Plt Count (150-400) K/uL MPV (7.40-12.00) fL Neut % (Auto) (48.0-80.0) % Lymph % (Auto) (16.0-40.0) % Desha % (Auto) (0.0-15.0) % Eos % (Auto) (0.0-7.0) % Baso % (Auto) (0.0-1.5) % Neut # (Auto) (1.4-5.7) K/uL Lymph # (Auto) (0.6-2.4) K/uL Desha # (Auto) (0.0-0.8) K/uL Eos # (Auto) (0.0-0.7) K/uL Baso # (Auto) (0.0-0.1) K/uL Nucleated RBC % /100WBC Nucleated RBCs # K/uL Sodium (136-145) mmol/L Potassium (3.5-5.1) mmol/L Chloride (98-107) mmol/L Carbon Dioxide (21.0-32.0) mmol/L BUN (7.0-18.0) mg/dL Creatinine (0.6-1.0) mg/dL Est Cr Clr Drug Dosing mL/min Estimated GFR (MDRD) ml/min Glucose (74-106) mg/dL Hemoglobin A1c 6.3 H (4.5-6.2) % Calcium (8.5-10.1) mg/dL Triglycerides (0-200) mg/dL Cholesterol (50-200) mg/dL LDL Cholesterol, Calc (60-180) mg/dL VLDL Cholesterol (5-55) mg/dL HDL Cholesterol (40-60) mg/dL Cholesterol/HDL Ratio (3.3-6.0) Urine Color Urine Appearance Urine pH (5.0-8.0) Ur Specific [place] (1.001-1.035) Urine Protein (NEGATIVE) mg/dL Urine Glucose (UA) (NEGATIVE) mg/dL Urine Ketones (NEGATIVE) mg/dL Urine Occult Blood (NEGATIVE) Urine Nitrite (NEGATIVE) Urine Bilirubin (NEGATIVE) Urine Urobilinogen (<2.0) EU/dL Ur Leukocyte Esterase (NEGATIVE) Med Orders - Current: Current Medications Acetaminophen (Tylenol Extra Strength) 500 mg PO Q12H PRN PRN Reason: Pain Last Admin: 02/02/20 08:59 Dose: 500 mg Documented by: Hydrocodone Bitart/Acetaminophen ([place] 325-10 Mg) 1 tab PO Q4H PRN PRN Reason: Pain Last Admin: 02/02/20 13:44 Dose: 1 tab Documented by: Apixaban (Eliquis) 5 mg PO BID [facility] Last Admin: 02/02/20 08:59 Dose: 5 mg Documented by: Atorvastatin Calcium (Lipitor) 40 mg PO BEDTIME [facility] Duloxetine HCl (Cymbalta) 120 mg PO BEDTIME [facility] Last Admin: 02/01/20 23:33 Dose: 120 mg Documented by: Escitalopram Oxalate (Lexapro) 10 mg PO DAILY [facility] Gabapentin (Neurontin) 600 mg PO TID [facility] Last Admin: 02/02/20 13:45 Dose: 600 mg Documented by: Ceftriaxone Sodium/Dextrose 1 (gm/ Premix) 50 mls @ 100 mls/hr IV Q24H [facility] Last Admin: 02/02/20 13:29 Dose: 100 mls/hr Documented by: Lorazepam (Ativan) 2 mg PO TID PRN PRN Reason: Anxiety Melatonin (Melatonin) 3 mg PO BEDTIME PRN PRN Reason: Insomnia Sodium Chloride (Saline Flush) 10 ml FLUSH ASDIRECTED PRN PRN Reason: Keep Vein Open Last Admin: 02/01/20 14:44 Dose: 10 ml Documented by: Sodium Chloride (Saline Flush) 2.5 ml FLUSH ASDIRECTED PRN PRN Reason: Keep Vein Open Last Admin: 02/01/20 14:44 Dose: 2.5 ml Documented by: Tramadol HCl (Ultram) 100 mg PO BID PRN PRN Reason: Pain Last Admin: 02/02/20 05:57 Dose: 100 mg Documented by: Discontinued Medications Aspirin (Aspirin) 324 mg PO ONETIME ONE Stop: 02/01/20 14:25 Last Admin: 02/01/20 14:44 Dose: 324 mg Documented by: Iopamidol (Isovue Multipack-370 (76%)) 100 ml IVPUSH ONETIME STA Stop: 02/01/20 14:43 Last Admin: 02/01/20 14:43 Dose: 100 ml Documented by: Simvastatin (Zocor) 40 mg PO BEDTIME [facility] Last Admin: 02/01/20 21:15 Dose: 40 mg Documented by: - Exam Physical Findings Comments:: Exam MS: Alert, oriented, naming and repetition intact, no visual extinction CN: 2 12 intact. Motor : no Drift, [place] bilateral triceps and deltoid. t. Bilateral HF 4/5, weaker on the left. Fixed right ankle. Sensory: intact and symmetric to light touch. Reflexes: Absent in lower limbs, 2+ in upper limbs. Coord: FTN intact bilaterally Gait able to stand independently, declined to walk Sepsis Event Note - Evaluation Sepsis Screening Result: No Definite Risk - Focused Exam Vital Signs: Vital Signs Temp Pulse Resp BP Pulse Ox 02/02/20 16:00 36.8 C 69 16 142/76 H 95 02/02/20 12:41 35.9 C L 74 17 139/67 95 02/02/20 12:00 35.9 C L 74 20 139/67 95 02/02/20 08:00 36.6 C 61 20 116/58 L 92 L 02/02/20 04:22 35.6 C L 63 18 118/63 92 L Consult PN Assessment/Plan Procedures: Procedures ASSAY OF CK (CPK) (08/21/17) ASSAY OF MAGNESIUM (09/07/19) ASSAY OF PHOSPHORUS (09/07/19) ASSAY OF TROPONIN QUANT (09/07/19) BLOOD CULTURE FOR BACTERIA (09/07/19) CARPAL TUNNEL SURGERY (08/16/15) COMPLETE CBC W/AUTO DIFF WBC (09/20/19) COMPREHEN METABOLIC PANEL (09/20/19) CT ABD & PELV W/CONTRAST (09/20/19) CT ANGIOGRAPHY HEAD (12/20/15) CT HEAD/BRAIN W/O DYE (09/20/19) CT THORAX W/DYE (11/04/14) ELECTROCARDIOGRAM TRACING (09/07/19) EMERGENCY DEPT VISIT (09/20/19) EMERGENCY DEPT VISIT (08/21/17) EMERGENCY DEPT VISIT (09/05/14) EMERGENCY DEPT VISIT (12/22/13) EVALUATE PT USE OF INHALER (08/16/15) EXTREMITY STUDY (12/22/13) FNA W/IMAGE (09/05/15) GLUCOSE BLOOD TEST (09/07/19) INJ TENDON SHEATH/LIGAMENT (08/29/15) METABOLIC PANEL TOTAL CA (09/07/19) MICROBE SUSCEPTIBLE FREDERICK (09/07/19) OFFICE/OUTPATIENT VISIT EST (11/25/17) OFFICE/OUTPATIENT VISIT NEW (06/27/15) OT EVAL HIGH COMPLEX 60 MIN (09/16/17) POLYSOM 6/> YRS 4/> IVAN (08/11/15) PROTHROMBIN TIME (09/20/19) PT EVAL MOD COMPLEX 30 MIN (12/10/17) ROUTINE VENIPUNCTURE (09/20/19) THER/PROPH/DIAG INJ IV PUSH (09/20/19) THER/PROPH/DIAG IV INF INIT (08/21/17) THROMBOPLASTIN TIME PARTIAL (09/20/19) TX/PRO/DX INJ NEW DRUG ADDON (09/20/19) URINALYSIS AUTO W/O SCOPE (09/20/19) URINALYSIS AUTO W/SCOPE (09/07/19) URINE BACTERIA CULTURE (09/07/19) URINE CULTURE/COLONY COUNT (09/07/19) X-RAY EXAM CHEST 1 VIEW (09/20/19) X-RAY EXAM HIP UNI 1 VIEW (09/07/19) X-RAY EXAM HIP UNI 2-3 VIEWS (11/25/17) X-RAY EXAM OF KNEE 3 (11/25/17) X-RAY EXAM OF WRIST (06/27/15) X-RAY XM ESOPHAGUS 1CNTRST (11/14/14) (1) Ischemic stroke SNOMED Code(s): 976668791 Code(s): I63.9 - CEREBRAL INFARCTION, UNSPECIFIED Current Visit: Yes Assessment:: Left side weakness, suspected TIA/stroke: Carotid Stenosis: Mild on right so medical management recommended. Left side is moderate but without symptoms referable to left ICA stenosis, so medical management is recommended -continue Eliquis - TTE pending -she may benefit from home PT for bilateral hip flexor weakness, which is likely chronic and multifactorial -switch simvastatin to atorvastatin Problem List Initiated/Reviewed/Updated: Yes
[2020-02-02] MEDS: LORazepam 1 MG Tab PO PRN (18:20)
[2020-02-02] MEDS ORDERED: atorvaSTATin 40 MG Tab PO SCH (21:00)
[2020-02-02] MEDS: DULoxetine 60 MG Cap PO SCH (21:00)
[2020-02-03] MEDS: Acetaminophen/HYDROcodone 325-10 MG Tab PO PRN ×3 (02:06→10:56)
[2020-02-03] MEDS: LORazepam 1 MG Tab PO PRN (02:07)
[2020-02-03] MEDS: Gabapentin 300 MG Cap PO SCH (06:31)
[2020-02-03 07:30] LABS: CARBON DIOXIDE,CO2 29.4 mmol/L (21.0-32.0); POTASSIUM,K 4.2 mmol/L (3.5-5.1)
[2020-02-03] MEDS ORDERED: Escitalopram 10 MG Tab PO SCH (09:00)
[2020-02-03] MEDS: Apixaban 5 MG Tab PO SCH (09:10)
[2020-02-03 09:35] VITALS: PULSE 62
[2020-02-03] MEDS: cefTRIAXone 1 GM in Premix Bag 1 BAG IV SCH (11:53)
--- NOTE | 2020-02-03 12:31 | PCM.DCSUM1 ---
<Monica Villagran - Last Filed: 02/03/20 15:33> Discharge Summary - Hospital Course Free Text/Narrative:: Patient is a 69-year-old female with significant past medical history of CVA and multiple TIAs, hyperlipidemia, hypertension, atrial fibrillation on Xarelto presenting to the ED via ambulance for multiple falls. Patient to ED physician endorse left hand weakness around 8 AM this morning while trying to eat (pt states she is ambidexterous) . Patient also noticed some left lower extremity weakness as well. Patient on her way to an ophthalmology appointment had fallen and EMS was called and patient was transported to the ED. ED course: Difficulty using left arm, left upper extremity and left leg; denied any other significant symptoms. Patient was 5 hours 10 minutes from onset of symptoms; TPA was not provided. EKG: Atrial paced rhythm Troponin negative. CT angiogram of neck and head showed proximal right ICA stenosis 50 to 60% mild atherosclerotic plaque within the left carotid bulb and poorly seen distal right vertebral artery CT angio head did not show any significant findings. Chest x-ray was clear. Hospital course: CT head x 2 (24 hours apart ) negative , CT head performed and not MRI secondary to pacemaker. Carotid US did show right ICA stenosis 50-60%; stable and inconsistent w. current neurological symptoms Consulted Dr Chavez of Neuro: recommended starting Atorvastatin an pt/ot Continued Eliquis PT/OT evaluated and states stable Despite negative UA; pt received dose of Rocephin with improvement of Dysuria, awaiting cultures but did send home with Macrobid pending cultures. Since increasing falls and HR in low 60's ; decreased diltiazem to 240 CD daily (original dose of 360); advised to discontinue continuous use of other medications for concners for repeated falls including hydroxyzine, Flexeril and oxycodone; pt states chronic pain makes this difficult but will try. pt requesting discharge. Discharged in stable condition Follow up appointment set up w. PCP Jacob patch ordered and placed to evaluate for any dysrhythmias as well : sent to PCP , 2-week duration - Discharge Data Discharge Date: 02/03/20 Discharge Disposition: Home, Self-Care 01 Condition: Stable - Referral to Home Health Primary Care Physician: PCP None - Patient Summary/Data Consults: Consultations 02/01/20 16:53 Consult to Physician [CONS] Routine 02/02/20 16:10 Consult to Physical Therapy [PT Evaluation and Treatment] [CONS] Routine - Patient Instructions Diet: Heart Healthy Diet Other/Special Instructions: FOLLOW UP WITH YOUR PCP REGARDING YOUR CURRENT MEDICATIONS. WE ARE CONCNERNED SOME OF YOUR MEDICATIONS ARE MAKING YOU DIZZY AND FALL MORE. WE STARTED YOU ON A LOWER DOSE OF YOUR HEAR RATE CONTROLLING MEDICATIONS AND A CHOLESTEROL MEDICAITON. PLEASE FOLLOW UP WITH YOUR CARD IOLOGIST AND PCP - Discharge Plan *PRESCRIPTION DRUG MONITORING PROGRAM REVIEWED*: No *COPY OF PRESCRIPTION DRUG MONITORING REPORT IN PATIENT ALMA ROSA: No Prescriptions/Med Rec: dilTIAZem HCL [Diltiazem 24Hr ER] 240 mg PO DAILY 30 Days #30 cap.sa.24h Nitrofurantoin Monohyd/M-Cryst [Macrobid 100 mg Capsule] 100 mg PO BID 5 Days #10 capsule Home Medications: Home Meds DULoxetine HCl [Duloxetine HCl] 120 mg PO BEDTIME 12/22/13 [History] Apixaban [Eliquis] 5 mg PO BID 08/14/15 [History] Esomeprazole [NexIUM] 40 mg PO DAILY 08/21/17 [History] Olmesartan Medoxomil 40 mg PO DAILY 09/07/19 [History] Albuterol/Ipratropium [Combivent Respimat] 1 inhalation PO QID PRN 02/02/20 [History] Cyclobenzaprine [Flexeril] 5 mg PO QID PRN 02/02/20 [History] Escitalopram [Lexapro] 10 mg PO DAILY 02/02/20 [History] Fluconazole 150 mg PO Q3D PRN 02/02/20 [History] Furosemide 20 mg PO DAILY 02/02/20 [History] Gabapentin [Neurontin] 600 mg PO TID 02/02/20 [History] Hydrocodone/Acetaminophen [Hydrocodone-Acetamin 10-325 mg] 1 tab PO Q4H PRN 02/02/20 [History] Levalbuterol Tartrate [Xopenex HFA] 2 inhalation PO Q4H PRN 02/02/20 [History] Acetaminophen [Tylenol Extra Strength] 500 mg PO Q12H PRN tablet 02/03/20 [Rx] Nitrofurantoin Monohyd/M-Cryst [Macrobid 100 mg Capsule] 100 mg PO BID 5 Days #10 capsule 02/03/20 [Rx] atorvaSTATin [Lipitor] 40 mg PO BEDTIME tablet 02/03/20 [Rx] dilTIAZem HCL [Diltiazem 24Hr ER] 240 mg PO DAILY 30 Days #30 cap.sa.24h 02/03/20 [Rx] Patient Handouts: Nitrofurantoin tablets or capsules, Edema, Ischemic Stroke, [id number], Diltiazem tablets, Hypotension Referrals: Meghna Irby DO [Ordering Only Provider] - 02/09/20 8:30 am - Discharge Summary/Plan Comment DC Time >30 min.: No - Patient Data Vitals - Most Recent: Last Vital Signs Temp 97.2 F 02/03/20 08:00 Pulse 62 02/03/20 08:00 Resp 16 02/03/20 08:00 BP 144/68 H 02/03/20 08:00 Pulse Ox 95 02/03/20 08:00 Weight - Most Recent: 81.647 kg I&O - Last 24 hours: Intake & Output 02/02/20 02/03/20 02/03/20 22:59 06:59 14:59 Intake Total 900 1780 Output Total 2100 1000 Balance -1200 780 Lab Results - Last 24 hrs: Laboratory Results - last 24 hr 02/03/20 02/03/20 Range/Units 06:58 06:58 WBC 8.54 (4.0-11.0) K/uL RBC 3.67 L (4.30-5.90) M/uL Hgb 11.2 L (12.0-16.0) g/dL Hct 35.2 L (36.0-46.0) % MCV 95.9 (80.0-98.0) fL MCH 30.5 (27.0-32.0) pg MCHC 31.8 (31.0-37.0) g/dL RDW Std Deviation 48.3 (28.0-62.0) fl RDW Coeff of Brittny 14 (11.0-15.0) % Plt Count 232 (150-400) K/uL MPV 11.10 (7.40-12.00) fL Neut % (Auto) 53.8 (48.0-80.0) % Lymph % (Auto) 35.4 (16.0-40.0) % [place] % (Auto) 7.1 (0.0-15.0) % Eos % (Auto) 3.3 (0.0-7.0) % Baso % (Auto) 0.4 (0.0-1.5) % Neut # (Auto) 4.6 (1.4-5.7) K/uL Lymph # (Auto) 3.0 H (0.6-2.4) K/uL [place] # (Auto) 0.6 (0.0-0.8) K/uL Eos # (Auto) 0.3 (0.0-0.7) K/uL Baso # (Auto) 0.0 (0.0-0.1) K/uL Nucleated RBC % 0.0 /100WBC Nucleated RBCs # 0 K/uL Sodium 143 (136-145) mmol/L Potassium 4.2 (3.5-5.1) mmol/L Chloride 107 (98-107) mmol/L Carbon Dioxide 29.4 (21.0-32.0) mmol/L BUN 13 (7.0-18.0) mg/dL Creatinine 1.0 (0.6-1.0) mg/dL Est Cr Clr Drug Dosing 48.45 mL/min Estimated GFR (MDRD) 55.1 ml/min Glucose 96 (74-106) mg/dL Calcium 8.4 L (8.5-10.1) mg/dL Med Orders - Current: Current Medications Acetaminophen (Tylenol Extra Strength) 500 mg PO Q12H PRN PRN Reason: Pain Last Admin: 02/02/20 08:59 Dose: 500 mg Documented by: Hydrocodone Bitart/Acetaminophen ([place] 325-10 Mg) 1 tab PO Q4H PRN PRN Reason: Pain Last Admin: 02/03/20 10:56 Dose: 1 tab Documented by: Apixaban (Eliquis) 5 mg PO BID [facility] Last Admin: 02/03/20 09:10 Dose: 5 mg Documented by: Atorvastatin Calcium (Lipitor) 40 mg PO BEDTIME [facility] Last Admin: 02/02/20 21:01 Dose: 40 mg Documented by: Duloxetine HCl (Cymbalta) 120 mg PO BEDTIME [facility] Last Admin: 02/02/20 21:00 Dose: 120 mg Documented by: Escitalopram Oxalate (Lexapro) 10 mg PO DAILY [facility] Last Admin: 02/03/20 09:10 Dose: 10 mg Documented by: Gabapentin (Neurontin) 600 mg PO TID [facility] Last Admin: 02/03/20 06:31 Dose: 600 mg Documented by: Ceftriaxone Sodium/Dextrose 1 (gm/ Premix) 50 mls @ 100 mls/hr IV Q24H [facility] Last Admin: 02/03/20 11:53 Dose: 100 mls/hr Documented by: Lorazepam (Ativan) 2 mg PO TID PRN PRN Reason: Anxiety Last Admin: 02/03/20 02:07 Dose: 2 mg Documented by: Melatonin (Melatonin) 3 mg PO BEDTIME PRN PRN Reason: Insomnia Sodium Chloride (Saline Flush) 10 ml FLUSH ASDIRECTED PRN PRN Reason: Keep Vein Open Last Admin: 02/01/20 14:44 Dose: 10 ml Documented by: Sodium Chloride (Saline Flush) 2.5 ml FLUSH ASDIRECTED PRN PRN Reason: Keep Vein Open Last Admin: 02/01/20 14:44 Dose: 2.5 ml Documented by: Tramadol HCl (Ultram) 100 mg PO BID PRN PRN Reason: Pain Last Admin: 02/02/20 23:43 Dose: 100 mg Documented by: Discontinued Medications Aspirin (Aspirin) 324 mg PO ONETIME ONE Stop: 02/01/20 14:25 Last Admin: 02/01/20 14:44 Dose: 324 mg Documented by: Iopamidol (Isovue Multipack-370 (76%)) 100 ml IVPUSH ONETIME STA Stop: 02/01/20 14:43 Last Admin: 02/01/20 14:43 Dose: 100 ml Documented by: Simvastatin (Zocor) 40 mg PO BEDTIME [facility] Last Admin: 02/01/20 21:15 Dose: 40 mg Documented by: <Jagruti Borrego - Last Filed: 02/05/20 13:41> Discharge Summary - Hospital Course Free Text/Narrative:: I have seen and evaluated the patient and agree with the residents note unless specified in my note - Referral to Home Health Primary Care Physician: PCP None - Patient Summary/Data Consults: Consultations 02/01/20 16:53 Consult to Physician [CONS] Routine 02/02/20 16:10 Consult to Physical Therapy [PT Evaluation and Treatment] [CONS] Routine - Patient Data Vitals - Most Recent: Last Vital Signs Temp 36.2 C 02/03/20 12:33 Pulse 62 02/03/20 12:33 Resp 16 02/03/20 12:33 BP 135/87 02/03/20 12:33 Pulse Ox 93 L 02/03/20 12:33 Med Orders - Current: Current Medications Discontinued Medications Acetaminophen (Tylenol Extra Strength) 500 mg PO Q12H PRN PRN Reason: Pain Last Admin: 02/02/20 08:59 Dose: 500 mg Documented by: Hydrocodone Bitart/Acetaminophen ([place] 325-10 Mg) 1 tab PO Q4H PRN PRN Reason: Pain Last Admin: 02/03/20 10:56 Dose: 1 tab Documented by: Apixaban (Eliquis) 5 mg PO BID [facility] Last Admin: 02/03/20 09:10 Dose: 5 mg Documented by: Aspirin (Aspirin) 324 mg PO ONETIME ONE Stop: 02/01/20 14:25 Last Admin: 02/01/20 14:44 Dose: 324 mg Documented by: Atorvastatin Calcium (Lipitor) 40 mg PO BEDTIME [facility] Last Admin: 02/02/20 21:01 Dose: 40 mg Documented by: Duloxetine HCl (Cymbalta) 120 mg PO BEDTIME [facility] Last Admin: 02/02/20 21:00 Dose: 120 mg Documented by: Escitalopram Oxalate (Lexapro) 10 mg PO DAILY [facility] Last Admin: 02/03/20 09:10 Dose: 10 mg Documented by: Gabapentin (Neurontin) 600 mg PO TID [facility] Last Admin: 02/03/20 06:31 Dose: 600 mg Documented by: Ceftriaxone Sodium/Dextrose 1 (gm/ Premix) 50 mls @ 100 mls/hr IV Q24H [facility] Last Admin: 02/03/20 11:53 Dose: 100 mls/hr Documented by: Iopamidol (Isovue Multipack-370 (76%)) 100 ml IVPUSH ONETIME STA Stop: 02/01/20 14:43 Last Admin: 02/01/20 14:43 Dose: 100 ml Documented by: Lorazepam (Ativan) 2 mg PO TID PRN PRN Reason: Anxiety Last Admin: 02/03/20 02:07 Dose: 2 mg Documented by: Melatonin (Melatonin) 3 mg PO BEDTIME PRN PRN Reason: Insomnia Simvastatin (Zocor) 40 mg PO BEDTIME [facility] Last Admin: 02/01/20 21:15 Dose: 40 mg Documented by: Sodium Chloride (Saline Flush) 10 ml FLUSH ASDIRECTED PRN PRN Reason: Keep Vein Open Last Admin: 02/01/20 14:44 Dose: 10 ml Documented by: Sodium Chloride (Saline Flush) 2.5 ml FLUSH ASDIRECTED PRN PRN Reason: Keep Vein Open Last Admin: 02/01/20 14:44 Dose: 2.5 ml Documented by: Tramadol HCl (Ultram) 100 mg PO BID PRN PRN Reason: Pain Last Admin: 02/02/20 23:43 Dose: 100 mg Documented by:
[2020-02-03 12:35] VITALS: BP 135/87
== END 2020-02-03 13:20 | disposition home or self-care (01) | DRG 65 ==
LOC: MW.ED 13:13 → MW.MS 14:24 → OBSVTOIN 14:24 → UNDOADMOB 16:58 → MW.MS 16:58
PROVIDERS: ADMIT Internal Medicine; ATTEND Internal Medicine
DX: I63.9 Cerebral infarction, unspecified (principal); N17.9 Acute kidney failure, unspecified; H54.7 Unspecified visual loss; J30.9 Allergic rhinitis, unspecified; G81.94 Hemiplegia, unspecified affecting left nondominant side; I65.23 Occlusion and stenosis of bilateral carotid arteries; Z20.828 Contact with and (suspected) exposure to other viral communicable diseases; E78.5 Hyperlipidemia, unspecified; I10 Essential (primary) hypertension; E78.00 Pure hypercholesterolemia, unspecified; K21.9 Gastro-esophageal reflux disease without esophagitis; Z86.73 Personal history of transient ischemic attack (TIA), and cerebral infarction without residual deficits; M19.90 Unspecified osteoarthritis, unspecified site; F32.9 Major depressive disorder, single episode, unspecified; Z98.49 Cataract extraction status, unspecified eye; M81.0 Age-related osteoporosis without current pathological fracture; I48.91 Unspecified atrial fibrillation; J44.9 Chronic obstructive pulmonary disease, unspecified; Z88.6 Allergy status to analgesic agent; G47.30 Sleep apnea, unspecified; F31.9 Bipolar disorder, unspecified; Z79.01 Long term (current) use of anticoagulants; E66.9 Obesity, unspecified; Z96.659 Presence of unspecified artificial knee joint; Z96.649 Presence of unspecified artificial hip joint; R40.2412 Glasgow coma scale score 13-15, at arrival to emergency department; Z88.5 Allergy status to narcotic agent; Z88.8 Allergy status to other drugs, medicaments and biological substances; Z79.899 Other long term (current) drug therapy; Z90.49 Acquired absence of other specified parts of digestive tract; Z68.30 Body mass index [BMI] 30.0-30.9, adult
CPT/HCPCS: 36415; 70450; 70450-26; 70496; 70496-26; 70498; 70498-26; 71045; 71045-26; 80048; 80053; 80061; 81003; 83036; 84484; 85025; 85610; 85730; 87070; 87077; 87086; 87088; 87186; 93005; 93306; 93880; 93880-26; 97161-GP; 99285-25; A9270-GY; J0696; Q9967; U0002

== ENCOUNTER 2020-02-22 23:28 | Inpatient (IN) | payer MEDICARE, MEDICAID, OTHER ==
[2020-02-22] MEDS ORDERED: Sodium Chloride 0.9% 2.5 ML Syringe FLUSH PRN (23:29)
[2020-02-22] MEDS ORDERED: Sodium Chloride 0.9% 10 ML Syringe FLUSH PRN (23:29)
--- NOTE | 2020-02-22 23:59 | EDM.PDOC ---
ED HPI GENERAL MEDICAL PROBLEM - General Chief Complaint: Lower Extremity Injury/Pain Stated Complaint: RIGHT KNEE PAIN Time Seen by Provider: 02/22/20 23:32 - History of Present Illness INITIAL COMMENTS - FREE TEXT/NARRATIVE: History of present illness: [] She was was playing volleyball and fell. She injured her right lower extremity. Actually fell out of her wheelchair. She has severe pain in the right knee. She has deformity of the right knee with shortening of the right lower extremity. She says it was already shorter. She is on this for atrial fibrillation. The patient says the pain is unbearable. She denies hitting her head or any LOC. Review of systems: As per history of present illness and below otherwise all systems reviewed and negative. Past medical history: As per history of present illness and as reviewed below otherwise noncontributory. Surgical history: As per history of present illness and as reviewed below otherwise noncontributory. Social history: No reported history of drug or alcohol abuse. Family history: As per history of present illness and as reviewed below otherwise noncontributory. Physical exam: Constitutional - well developed, well-nourished and in no acute distress HEENT -calf is nontender. There is no deformity. Normocephalic, no evidence of trauma - external nose and mouth normal - no mass in neck and no JVD - mucosae moist EYES - full EOM, PERRL, no icterus - no evidence of inflammation, injection, or drainage Respiratory - no respiratory distress, equal bilateral expansion, lungs clear to auscultation and no abnormal lung sounds Cardiovascular - Regular Rhythm with S1 and S2 appreciated and no murmur, gallop or rub. GI - abdomen soft without distension or organomegaly - normal bowel sounds - no guard or rebound Musculoskeletal formally of the right lower extremity with shortening of the right lower extremity at the hip and at the knee. There is severe swelling and tenderness in the knee. It is quite short compared to the left lower extremity. She does not have any back or neck or other pain. No gross deformity of long bones or joints - no tenderness, swelling or edema Neurologic - Alert and oriented times 3 but not circumstances- CN II-XII grossly intact - motor sensory and coordination symmetrically normal Psychiatric - appropriate mood and affect with normal thought content Hematologic - No petechiae or purpura - mucosa appropriate color and sclera not pale - normal nail bed color and refill Integument - no rash or evidence of trauma - normal turgor Diagnostics: [] Therapeutics: [] Impression: [] Plan: [] Definitive disposition and diagnosis as appropriate pending reevaluation and review of above. right knee Pain Score (Numeric/FACES): 10 - Related Data Allergies Allergy/AdvReac Type Severity Reaction Status Date / Time codeine Allergy Intermediate Airway Verified 02/01/20 19:34 Tightness meperidine HCl [From Demerol] Allergy Intermediate Airway Verified 02/01/20 19:34 Tightness morphine Allergy Intermediate Airway Verified 02/01/20 19:34 Tightness oxycodone [Oxycodone] Allergy Intermediate Airway Verified 02/01/20 19:34 Tightness lidocaine Allergy Anaphylactic Verified 02/01/20 19:34 Shock orphenadrine Allergy Airway Verified 02/01/20 19:34 Tightness varenicline tartrate Allergy Airway Verified 02/01/20 19:34 [From Chantix] Tightness Home Meds: Home Meds DULoxetine HCl [Duloxetine HCl] 120 mg PO BEDTIME 12/22/13 [History] Apixaban [Eliquis] 5 mg PO BID 08/14/15 [History] Esomeprazole [NexIUM] 40 mg PO DAILY 08/21/17 [History] Olmesartan Medoxomil 40 mg PO DAILY 09/07/19 [History] Albuterol/Ipratropium [Combivent Respimat] 1 inhalation PO QID PRN 02/02/20 [History] Cyclobenzaprine [Flexeril] 5 mg PO QID PRN 02/02/20 [History] Escitalopram [Lexapro] 10 mg PO DAILY 02/02/20 [History] Fluconazole 150 mg PO Q3D PRN 02/02/20 [History] Furosemide 20 mg PO DAILY 02/02/20 [History] Gabapentin [Neurontin] 600 mg PO TID 02/02/20 [History] Hydrocodone/Acetaminophen [Hydrocodone-Acetamin 10-325 mg] 1 tab PO Q4H PRN 02/02/20 [History] Levalbuterol Tartrate [Xopenex HFA] 2 inhalation PO Q4H PRN 02/02/20 [History] Acetaminophen [Tylenol Extra Strength] 500 mg PO Q12H PRN tablet 02/03/20 [Rx] Nitrofurantoin Monohyd/M-Cryst [Macrobid 100 mg Capsule] 100 mg PO BID 5 Days #10 capsule 02/03/20 [Rx] atorvaSTATin [Lipitor] 40 mg PO BEDTIME tablet 02/03/20 [Rx] dilTIAZem HCL [Diltiazem 24Hr ER] 240 mg PO DAILY 30 Days #30 cap.sa.24h 02/03/20 [Rx] Past Medical History HEENT History: Reports: Allergic Rhinitis, Impaired Vision, Other (See Below) Other HEENT History: wears reading glasses Cardiovascular History: Reports: Afib, High Cholesterol, Hypertension Respiratory History: Reports: Bronchitis, Recurrent, COPD, SOB, Other (See Below) Other Respiratory History: was tested for sleep apnea last week, no results yet Gastrointestinal History: Reports: Cholelithiasis, GERD Genitourinary History: Reports: None [employer] ATTENDANT History: Reports: None Musculoskeletal History: Reports: Arthritis, Fracture, Osteoporosis Other Musculoskeletal History: states chronic back and right hip pain, hx of fx right wrist and right tib-fib, wheelchair bound due to hip pain and major SOB Neurological History: Reports: TIA Other Neuro History: has has TIA x2, 2009 and 2013. No residual weakness, no intervention done except physical therapy Psychiatric History: Reports: Bipolar, Depression Endocrine/Metabolic History: Reports: Obesity/BMI 30+, Other (See Below) Other Endocrine/Metabolic History: states has 2 "lumps" on thyroid as noted on ultrasound Hematologic History: Reports: None Immunologic History: Reports: None Oncologic (Cancer) History: Reports: None Dermatologic History: Reports: None - Infectious Disease History Infectious Disease History: Reports: Measles - Past Surgical History Head Surgeries/Procedures: Reports: None HEENT Surgical History: Reports: Cataract Surgery GI Surgical History: Reports: Bariatric Procedure, Cholecystectomy Female Surgical History: Reports: None Neurological Surgical History: Reports: None Musculoskeletal Surgical History: Reports: Hip Replacement, Knee Replacement, ORIF Social & Family History - Family History Family Medical History: Noncontributory - Caffeine Use Caffeine Use: Reports: Coffee Review of Systems - Review of Systems Review Of Systems: Comprehensive ROS is negative, except as noted in HPI. ED EXAM, GENERAL - Physical Exam Exam: See Below Free Text/Narrative:: My physical exam as in the HPI EKG INTERPRETATION EKG Interpretation Comments: EKG accelerated junctional rhythm. Heart rate 79. QT interval 538. QRS Effort VII. Abnormal R wave progression with left ventricular hypertrophy and prolonged QT. No significant change from 02/01/2020 no injury Course - Vital Signs Last Recorded V/S: Last Vital Signs Temp 98.7 F 02/22/20 23:28 Pulse 77 02/22/20 23:28 Resp 18 02/22/20 23:28 BP 114/56 L 02/22/20 23:28 Pulse Ox 90 L 02/22/20 23:28 - Orders/Labs/Meds Orders: Active Orders 24 hr Category Date Time Status EKG Documentation Completion [RC] AM Care 02/22/20 23:29 Active Sodium Chloride 0.9% [Saline Flush] Med 02/22/20 23:29 Active 10 ml FLUSH ASDIRECTED PRN Sodium Chloride 0.9% [Saline Flush] Med 02/22/20 23:29 Active 2.5 ml FLUSH ASDIRECTED PRN Saline Lock Insert [OM.PC] Stat Oth 02/22/20 23:30 Ordered Medication Orders Sodium Chloride (Saline Flush) 10 ml FLUSH ASDIRECTED PRN PRN Reason: Keep Vein Open Last Admin: 02/22/20 23:45 Dose: 10 ml Documented by: LIDIA Sodium Chloride (Saline Flush) 2.5 ml FLUSH ASDIRECTED PRN PRN Reason: Keep Vein Open Last Admin: 02/22/20 23:45 Dose: 2.5 ml Documented by: LIDIA Labs: Laboratory Tests 02/22/20 02/22/20 02/22/20 Range/Units 23:32 23:32 23:32 WBC 15.70 H (4.0-11.0) K/uL RBC 4.09 L (4.30-5.90) M/uL Hgb 12.5 (12.0-16.0) g/dL Hct 38.7 (36.0-46.0) % MCV 94.6 (80.0-98.0) fL MCH 30.6 (27.0-32.0) pg MCHC 32.3 (31.0-37.0) g/dL RDW Std Deviation 47.1 (28.0-62.0) fl RDW Coeff of Brittny 14 (11.0-15.0) % Plt Count 281 (150-400) K/uL MPV 11.20 (7.40-12.00) fL Neut % (Auto) 81.4 H (48.0-80.0) % Lymph % (Auto) 11.1 L (16.0-40.0) % [place] % (Auto) 6.6 (0.0-15.0) % Eos % (Auto) 0.7 (0.0-7.0) % Baso % (Auto) 0.2 (0.0-1.5) % Neut # (Auto) 12.8 H (1.4-5.7) K/uL Lymph # (Auto) 1.7 (0.6-2.4) K/uL [place] # (Auto) 1.0 H (0.0-0.8) K/uL Eos # (Auto) 0.1 (0.0-0.7) K/uL Baso # (Auto) 0.0 (0.0-0.1) K/uL Nucleated RBC % 0.0 /100WBC Nucleated RBCs # 0 K/uL INR 1.11 Sodium 136 (136-145) mmol/L Potassium 3.9 (3.5-5.1) mmol/L Chloride 101 (98-107) mmol/L Carbon Dioxide 27.7 (21.0-32.0) mmol/L BUN 11 (7.0-18.0) mg/dL Creatinine 1.3 H (0.6-1.0) mg/dL Est Cr Clr Drug Dosing TNP Estimated GFR (MDRD) 40.7 ml/min Glucose 99 (74-106) mg/dL Calcium 8.4 L (8.5-10.1) mg/dL Total Bilirubin 0.2 (0.2-1.0) mg/dL AST 14 L (15-37) IU/L ALT 17 (14-63) IU/L Alkaline Phosphatase 143 H (46-116) U/L Troponin I (0.000-0.056) ng/mL Total Protein 7.0 (6.4-8.2) g/dL Albumin 3.3 L (3.4-5.0) g/dL Globulin 3.7 (2.6-4.0) g/dL Albumin/Globulin Ratio 0.9 (0.9-1.6) 02/22/20 Range/Units 23:32 WBC (4.0-11.0) K/uL RBC (4.30-5.90) M/uL Hgb (12.0-16.0) g/dL Hct (36.0-46.0) % MCV (80.0-98.0) fL MCH (27.0-32.0) pg MCHC (31.0-37.0) g/dL RDW Std Deviation (28.0-62.0) fl RDW Coeff of Brittny (11.0-15.0) % Plt Count (150-400) K/uL MPV (7.40-12.00) fL Neut % (Auto) (48.0-80.0) % Lymph % (Auto) (16.0-40.0) % [place] % (Auto) (0.0-15.0) % Eos % (Auto) (0.0-7.0) % Baso % (Auto) (0.0-1.5) % Neut # (Auto) (1.4-5.7) K/uL Lymph # (Auto) (0.6-2.4) K/uL [place] # (Auto) (0.0-0.8) K/uL Eos # (Auto) (0.0-0.7) K/uL Baso # (Auto) (0.0-0.1) K/uL Nucleated RBC % /100WBC Nucleated RBCs # K/uL INR Sodium (136-145) mmol/L Potassium (3.5-5.1) mmol/L Chloride (98-107) mmol/L Carbon Dioxide (21.0-32.0) mmol/L BUN (7.0-18.0) mg/dL Creatinine (0.6-1.0) mg/dL Est Cr Clr Drug Dosing Estimated GFR (MDRD) ml/min Glucose (74-106) mg/dL Calcium (8.5-10.1) mg/dL Total Bilirubin (0.2-1.0) mg/dL AST (15-37) IU/L ALT (14-63) IU/L Alkaline Phosphatase (46-116) U/L Troponin I < 0.050 (0.000-0.056) ng/mL Total Protein (6.4-8.2) g/dL Albumin (3.4-5.0) g/dL Globulin (2.6-4.0) g/dL Albumin/Globulin Ratio (0.9-1.6) Meds: Medications Generic Name Dose Route Start Last Admin Trade Name Freq PRN Reason Stop Dose Admin Sodium Chloride 10 ml 02/22/20 23:29 02/22/20 23:45 Saline Flush FLUSH 10 ml ASDIRECTED PRN Administration Keep Vein Open Sodium Chloride 2.5 ml 02/22/20 23:29 02/22/20 23:45 Saline Flush FLUSH 2.5 ml ASDIRECTED PRN Administration Keep Vein Open Departure - Departure Time of Disposition: 01:22 Disposition: Home, Self-Care 01 Condition: Good Clinical Impression: Contusion of hip, Contusion of knee, Pain in lower limb - Discharge Information Instructions: Acute Knee Pain, Adult, Contusion, [id number] Referrals: PCP,None [Primary Care Provider] - Forms: ED Department Discharge Additional Instructions: Use of walker. Have assistance with your family. Follow-up with your orthopedist who has done surgery in the past. [facility] [address] [place] [address] [place] [address] The following information is given to patients seen in the emergency department who are being discharged to home. This information is to outline your options for follow-up care. We provide all patients seen in our emergency department with a follow-up referral. The need for follow-up, as well as the timing and circumstances, are variable depending upon the specifics of your emergency department visit. If you don't have a primary care physician on staff, we will provide you with a referral. We always advise you to contact your personal physician following an emergency department visit to inform them of the circumstance of the visit and for follow-up with them and/or the need for any referrals to a consulting specialist. The emergency department will also refer you to a specialist when appropriate. This referral assures that you have the opportunity for follow-up care with a specialist. All of these measure are taken in an effort to provide you with optimal care, which includes your follow-up. Under all circumstances we always encourage you to contact your private physician who remains a resource for coordinating your care. When calling for follow-up care, please make the office aware that this follow-up is from your recent emergency room visit. If for any reason you are refused follow-up, please contact the [facility] Emergency Department at and asked to speak to the emergency department charge nurse. \\] Sepsis Event Note (ED) - Focused Exam Vital Signs: Vital Signs Temp Pulse Resp BP Pulse Ox 02/22/20 23:28 98.7 F 77 18 114/56 L 90 L - My Orders Last 24 Hours: My Active Orders 02/22/20 23:29 EKG Documentation Completion [RC] AM Sodium Chloride 0.9% [Saline Flush] 10 ml FLUSH ASDIRECTED PRN Sodium Chloride 0.9% [Saline Flush] 2.5 ml FLUSH ASDIRECTED PRN 02/22/20 23:30 Saline Lock Insert [OM.PC] Stat - Assessment/Plan Last 24 Hours: My Active Orders 02/22/20 23:29 EKG Documentation Completion [RC] AM Sodium Chloride 0.9% [Saline Flush] 10 ml FLUSH ASDIRECTED PRN Sodium Chloride 0.9% [Saline Flush] 2.5 ml FLUSH ASDIRECTED PRN 02/22/20 23:30 Saline Lock Insert [OM.PC] Stat
[2020-02-23 00:04] LABS: BLOOD UREA NITROGEN,BUN 11 mg/dL (7.0-18.0); CARBON DIOXIDE,CO2 27.7 mmol/L (21.0-32.0); CHLORIDE,CL 101 mmol/L (98-107); GLUCOSE RANDOM 99 mg/dL (74-106); POTASSIUM,K 3.9 mmol/L (3.5-5.1); SODIUM,NA 136 mmol/L (136-145)
--- NOTE | 2020-02-23 00:49 | CR ---
INDICATION: Fall with pelvic and hip injury TECHNIQUE: Pelvis radiograph 1 views COMPARISON: 09/07/2019 FINDINGS: Moderate degradation of image quality noted due to body habitus. Bone: No acute fractures or aggressive bone lesions are identified. Right acetabular reconstruction with hip prosthesis is noted, similar to prior examination. Joint: See above. The visualized sacroiliac joints are unremarkable in appearance. The pubic symphysis is normal in appearance. Soft tissue: Unremarkable. The visualized bowel gas pattern of the pelvis is unremarkable in appearance. No radiopaque foreign bodies are seen. IMPRESSION: 1. No acute osseous injuries or abnormalities are noted. Dictated by Cristian Powell MD @ 02/23/2020 12:47:23 AM Dictated by: Cristian Powell MD @ 02/23/2020 00:47:26 (Electronically Signed)
--- NOTE | 2020-02-23 01:02 | CR ---
HISTORY: Fall with injury. COMPARISON: 09/07/2019 FINDINGS: AP and lateral views of the right femur were obtained. The components of the long-stem total hip prosthesis remain in anatomic alignment with no sign of fracture, loosening, or dislocation. Again seen are multiple cerclage wires along the femoral shaft. There is no sign of any fracture of the chinik osseous structures. The soft tissues are normal in appearance without sign of radio-opaque foreign body. There is no sign of osteoarthritis of the knee. There does appear to be a mild suprapatellar joint effusion. The soft tissues are normal in appearance. IMPRESSION: Intact appearance of a long-stem right total hip prosthesis. No sign of any acute osseous injury. Mild suprapatellar knee joint effusion. Dictated by Mauricio Webster MD @ Feb 23 2020 12:51AM Signed by Dr. Mauricio Webster @ Feb 23 2020 1:00AM
--- NOTE | 2020-02-23 01:02 | CR ---
HISTORY: Status post fall with injury. COMPARISON: 02/01/2020 FINDINGS: A portable erect AP view of the chest was obtained at 23 53 hours. There is no change in mild prominence of interstitial markings consistent with mild pulmonary fibrosis. The lungs otherwise remain clear despite shallow inspiration. The heart remains normal in size. Again seen is a left sided pacemaker with leads entering the left subclavian vein and terminating in the right atrium and right ventricle. The mediastinum is normal in appearance. The osseous structures are normal in appearance for the patient`s age. Again seen are multiple surgical clips in the left upper quadrant of the abdomen, possibly from surgery to the stomach. IMPRESSION: No active disease seen in the chest. Stable mild prominence of interstitial markings consistent with mild pulmonary fibrosis. Dictated by Mauricio Webster MD @ Feb 23 2020 12:54AM Signed by Dr. Mauricio Webster @ Feb 23 2020 1:00AM
--- NOTE | 2020-02-23 02:57 | CT ---
Indication: Altered level of consciousness Technique: Nonenhanced axial CT imaging through the head. Sagittal and coronal reconstructions are provided. Comparison: CT head without contrast at 16:20 Findings: There is no intracranial hemorrhage, edema, or mass effect. Sanders-white matter differentiation is preserved. There is generalized cerebral volume loss with compensatory enlargement of the ventricles and cerebral sulci, similar to prior. The basal cisterns are patent. The calvarium is intact. The visualized paranasal sinuses and mastoid air cells are aerated. Impression: No acute intracranial process. Please note that all CT scans at this facility use dose modulation, iterative reconstruction, and/or weight-based dosing when appropriate to reduce radiation dose to as low as reasonably achievable. Dictated by Julia Brito MD @ Feb 23 2020 2:56AM Signed by Dr. Julia Brito @ Feb 23 2020 2:56AM
[2020-02-23] MEDS ORDERED: Lactated Ringers 1,000 ML IV ONE (05:47)
[2020-02-23] MEDS ORDERED: Albuterol/Ipratropium 3.0-0.5 MG/3 ML Neb Soln NEB PRN (05:48)
[2020-02-23] MEDS ORDERED: methylPREDNISolone Sodium Succinate 40 MG/1 ML SDV IVPUSH ONE (05:49)
[2020-02-23] MEDS: Azithromycin 500 MG in Sodium Chloride 0.9% 250 ML IV SCH (06:55)
[2020-02-23] MEDS: Lactated Ringers 1,000 ML IV SCH ×2 (06:55→16:55)
[2020-02-23] MEDS ORDERED: Ondansetron 4 MG/2 ML SDV IVPUSH PRN (07:54)
--- NOTE | 2020-02-23 07:58 | PCM.HP.2 ---
H&P History of Present Illness - General Date of Service: 02/23/20 Admit Problem/Dx: Admission Diagnosis/Problem Admission Diagnosis/Problem Confusion Source of Information: Patient History Limitations: Reports: No Limitations - History of Present Illness Initial Comments - Free Text/Narative: This 69 year old female with pmh of CVA, multiple TIAs, HLD, HTN, Afib on Xarelto, non ambulatory due to chronic hip pain and wheelchair bound presented to the ED last night with R knee pain. It is unclear as to why she came in exactly. She reports this morning she has no idea what happened last night and is wanting to go home. She reports she has been doing well at home prior to this. She did fall out of her wheelchair on her R knee last Friday and has been having more pain. She then asked for refills of her chronic narcotics as she is out and a new script does not start until Friday. She reports she takes Tramadol and Hydrocodone as well as 3 mg Lorazepam BID. She denies taking more medication than prescribed. She denies any chest pain or sob. No fevers or chills. No abdominal pain or trouble urinating. In the ED leukocytosis noted and slightly elevated Cr 1.3. Ua negative. Tox showed +opiates and +benzodiazepines. CXR negative for acute changes, but showed mild pulmonary fibrosis. Femur xray, shows mild joint effusion to R knee, no acute fractures. She was very sedated in the ED and unsafe to return home. Admitted for R knee pain, hypoxia, and possible CAP. right knee Pain Score (Numeric/FACES): 10 - Related Data Allergies/Adverse Reactions: Allergies Allergy/AdvReac Type Severity Reaction Status Date / Time codeine Allergy Intermediate Airway Verified 02/01/20 19:34 Tightness meperidine HCl [From Demerol] Allergy Intermediate Airway Verified 02/01/20 19:34 Tightness morphine Allergy Intermediate Airway Verified 02/01/20 19:34 Tightness oxycodone [Oxycodone] Allergy Intermediate Airway Verified 02/01/20 19:34 Tightness lidocaine Allergy Anaphylactic Verified 02/01/20 19:34 Shock orphenadrine Allergy Airway Verified 02/01/20 19:34 Tightness varenicline tartrate Allergy Airway Verified 02/01/20 19:34 [From Chantix] Tightness Home Medications: Home Meds DULoxetine HCl [Duloxetine HCl] 120 mg PO BEDTIME 12/22/13 [History] Apixaban [Eliquis] 5 mg PO BID 08/14/15 [History] Esomeprazole [NexIUM] 40 mg PO DAILY 08/21/17 [History] Olmesartan Medoxomil 40 mg PO DAILY 09/07/19 [History] Albuterol/Ipratropium [Combivent Respimat] 1 inhalation PO QID PRN 02/02/20 [History] Cyclobenzaprine [Flexeril] 5 mg PO QID PRN 02/02/20 [History] Escitalopram [Lexapro] 10 mg PO DAILY 02/02/20 [History] Fluconazole 150 mg PO Q3D PRN 02/02/20 [History] Furosemide 20 mg PO DAILY 02/02/20 [History] Gabapentin [Neurontin] 600 mg PO TID 02/02/20 [History] Hydrocodone/Acetaminophen [Hydrocodone-Acetamin 10-325 mg] 1 tab PO Q4H PRN 02/02/20 [History] Levalbuterol Tartrate [Xopenex HFA] 2 inhalation PO Q4H PRN 02/02/20 [History] Acetaminophen [Tylenol Extra Strength] 500 mg PO Q12H PRN tablet 02/03/20 [Rx] Nitrofurantoin Monohyd/M-Cryst [Macrobid 100 mg Capsule] 100 mg PO BID 5 Days #10 capsule 02/03/20 [Rx] atorvaSTATin [Lipitor] 40 mg PO BEDTIME tablet 02/03/20 [Rx] dilTIAZem HCL [Diltiazem 24Hr ER] 240 mg PO DAILY 30 Days #30 cap.sa.24h 02/03/20 [Rx] Past Medical History HEENT History: Reports: Allergic Rhinitis, Impaired Vision, Other (See Below) Other HEENT History: wears reading glasses Cardiovascular History: Reports: Afib, High Cholesterol, Hypertension Respiratory History: Reports: Bronchitis, Recurrent, COPD, SOB, Other (See Below) Other Respiratory History: was tested for sleep apnea last week, no results yet Gastrointestinal History: Reports: Cholelithiasis, GERD Genitourinary History: Reports: None BRIDGE ATTACHER History: Reports: None Musculoskeletal History: Reports: Arthritis, Fracture, Osteoporosis Other Musculoskeletal History: states chronic back and right hip pain, hx of fx right wrist and right tib-fib, wheelchair bound due to hip pain and major SOB Neurological History: Reports: TIA Other Neuro History: has has TIA x2, 2009 and 2013. No residual weakness, no intervention done except physical therapy Psychiatric History: Reports: Bipolar, Depression Endocrine/Metabolic History: Reports: Obesity/BMI 30+, Other (See Below) Other Endocrine/Metabolic History: states has 2 "lumps" on thyroid as noted on ultrasound Hematologic History: Reports: None Immunologic History: Reports: None Oncologic (Cancer) History: Reports: None Dermatologic History: Reports: None - Infectious Disease History Infectious Disease History: Reports: Measles - Past Surgical History Head Surgeries/Procedures: Reports: None HEENT Surgical History: Reports: Cataract Surgery GI Surgical History: Reports: Bariatric Procedure, Cholecystectomy Female Surgical History: Reports: None Neurological Surgical History: Reports: None Musculoskeletal Surgical History: Reports: Hip Replacement, Knee Replacement, ORIF Social & Family History - Family History Family Medical History: Noncontributory - Tobacco Use Smoking Status *Q: Current Every Day Smoker Years of Tobacco use: 40 Packs/Tins Daily: 2 - Caffeine Use Caffeine Use: Reports: Coffee Caffeine Use Comment: Unable to obtain. Pt is falling in and out of sleep, and is groggy. H&P Review of Systems - Review of Systems: Review Of Systems: See Below General: Reports: No Symptoms. Denies: Fever, Chills, Malaise, Fatigue Pulmonary: Reports: Cough, Sputum. Denies: Shortness of Breath, Wheezing Cardiovascular: Reports: No Symptoms. Denies: Chest Pain, Edema Gastrointestinal: Reports: No Symptoms. Denies: Abdominal Pain, Black Stool, Bloody Stool, Nausea, Vomiting Genitourinary: Reports: No Symptoms. Denies: Dysuria, Frequency, Burning Musculoskeletal: Reports: Joint Pain (R knee and R hip, R hip is chronic pain no change) Skin: Reports: No Symptoms Psychiatric: Reports: No Symptoms Neurological: Reports: No Symptoms Hematologic/Lymphatic: Reports: No Symptoms Immunologic: Reports: No Symptoms Exam - Exam Exam: See Below - Vital Signs Vital Signs: Last Vital Signs Temp 98.7 F 02/22/20 23:28 Pulse 77 02/22/20 23:28 Resp 18 02/22/20 23:28 BP 114/56 L 02/22/20 23:28 Pulse Ox 90 L 02/22/20 23:28 Weight: 84.368 kg - Exam Quality Assessment: Supplemental Oxygen, DVT Prophylaxis General: Alert, Oriented, Cooperative Lungs: Normal Respiratory Effort, Rhonchi, Wheezing Cardiovascular: Regular Rate, Regular Rhythm Extremities: Normal Inspection, Normal Range of Motion, Non-Tender, No Pedal Edema, Other (mild joint effusion noted to R knee, no erythema noted) Neuro Extensive - Mental Status: Alert, Oriented x3 Neuro Extensive - Motor, Sensory, Reflexes: CN II-XII Intact Psychiatric: Alert, Normal Affect, Normal Mood Physical Exam Comments:: Initially extremely sedated and hard to arouse without painful stimuli. Patient woke up later ate breakfast and was able to talk appropriately. Was later then noted to be sleeping again. - Patient Data Lab Results Last 24 hrs: Laboratory Results - last 24 hr 02/22/20 02/22/20 02/22/20 Range/Units 23:32 23:32 23:32 WBC 15.70 H (4.0-11.0) K/uL RBC 4.09 L (4.30-5.90) M/uL Hgb 12.5 (12.0-16.0) g/dL Hct 38.7 (36.0-46.0) % MCV 94.6 (80.0-98.0) fL MCH 30.6 (27.0-32.0) pg MCHC 32.3 (31.0-37.0) g/dL RDW Std Deviation 47.1 (28.0-62.0) fl RDW Coeff of Brittny 14 (11.0-15.0) % Plt Count 281 (150-400) K/uL MPV 11.20 (7.40-12.00) fL Neut % (Auto) 81.4 H (48.0-80.0) % Lymph % (Auto) 11.1 L (16.0-40.0) % [place] % (Auto) 6.6 (0.0-15.0) % Eos % (Auto) 0.7 (0.0-7.0) % Baso % (Auto) 0.2 (0.0-1.5) % Neut # (Auto) 12.8 H (1.4-5.7) K/uL Lymph # (Auto) 1.7 (0.6-2.4) K/uL [place] # (Auto) 1.0 H (0.0-0.8) K/uL Eos # (Auto) 0.1 (0.0-0.7) K/uL Baso # (Auto) 0.0 (0.0-0.1) K/uL Nucleated RBC % 0.0 /100WBC Nucleated RBCs # 0 K/uL INR 1.11 ABG pH (7.35-7.45) ABG pCO2 (35-45) mmHG ABG pO2 (75-100) mmHG ABG HCO3 (22-26) mEq/L ABG Total CO2 ABG Base Excess (-2.0-2.0) Sodium 136 (136-145) mmol/L Potassium 3.9 (3.5-5.1) mmol/L Chloride 101 (98-107) mmol/L Carbon Dioxide 27.7 (21.0-32.0) mmol/L BUN 11 (7.0-18.0) mg/dL Creatinine 1.3 H (0.6-1.0) mg/dL Est Cr Clr Drug Dosing TNP Estimated GFR (MDRD) 40.7 ml/min Glucose 99 (74-106) mg/dL Calcium 8.4 L (8.5-10.1) mg/dL Phosphorus (2.6-4.7) mg/dL Magnesium (1.8-2.4) mg/dL Total Bilirubin 0.2 (0.2-1.0) mg/dL AST 14 L (15-37) IU/L ALT 17 (14-63) IU/L Alkaline Phosphatase 143 H (46-116) U/L Troponin I (0.000-0.056) ng/mL Total Protein 7.0 (6.4-8.2) g/dL Albumin 3.3 L (3.4-5.0) g/dL Globulin 3.7 (2.6-4.0) g/dL Albumin/Globulin Ratio 0.9 (0.9-1.6) Urine Color Urine Appearance Urine pH (5.0-8.0) Ur Specific [place] (1.001-1.035) Urine Protein (NEGATIVE) mg/dL Urine Glucose (UA) (NEGATIVE) mg/dL Urine Ketones (NEGATIVE) mg/dL Urine Occult Blood (NEGATIVE) Urine Nitrite (NEGATIVE) Urine Bilirubin (NEGATIVE) Urine Urobilinogen (<2.0) EU/dL Ur Leukocyte Esterase (NEGATIVE) SARS-CoV-2 RNA (KEI) (NEGATIVE) 02/22/20 02/22/20 02/23/20 Range/Units 23:32 23:32 02:40 WBC (4.0-11.0) K/uL RBC (4.30-5.90) M/uL Hgb (12.0-16.0) g/dL Hct (36.0-46.0) % MCV (80.0-98.0) fL MCH (27.0-32.0) pg MCHC (31.0-37.0) g/dL RDW Std Deviation (28.0-62.0) fl RDW Coeff of Brittny (11.0-15.0) % Plt Count (150-400) K/uL MPV (7.40-12.00) fL Neut % (Auto) (48.0-80.0) % Lymph % (Auto) (16.0-40.0) % [place] % (Auto) (0.0-15.0) % Eos % (Auto) (0.0-7.0) % Baso % (Auto) (0.0-1.5) % Neut # (Auto) (1.4-5.7) K/uL Lymph # (Auto) (0.6-2.4) K/uL [place] # (Auto) (0.0-0.8) K/uL Eos # (Auto) (0.0-0.7) K/uL Baso # (Auto) (0.0-0.1) K/uL Nucleated RBC % /100WBC Nucleated RBCs # K/uL INR ABG pH (7.35-7.45) ABG pCO2 (35-45) mmHG ABG pO2 (75-100) mmHG ABG HCO3 (22-26) mEq/L ABG Total CO2 ABG Base Excess (-2.0-2.0) Sodium (136-145) mmol/L Potassium (3.5-5.1) mmol/L Chloride (98-107) mmol/L Carbon Dioxide (21.0-32.0) mmol/L BUN (7.0-18.0) mg/dL Creatinine (0.6-1.0) mg/dL Est Cr Clr Drug Dosing Estimated GFR (MDRD) ml/min Glucose (74-106) mg/dL Calcium (8.5-10.1) mg/dL Phosphorus 4.2 (2.6-4.7) mg/dL Magnesium 2.2 (1.8-2.4) mg/dL Total Bilirubin (0.2-1.0) mg/dL AST (15-37) IU/L ALT (14-63) IU/L Alkaline Phosphatase (46-116) U/L Troponin I < 0.050 (0.000-0.056) ng/mL Total Protein (6.4-8.2) g/dL Albumin (3.4-5.0) g/dL Globulin (2.6-4.0) g/dL Albumin/Globulin Ratio (0.9-1.6) Urine Color YELLOW Urine Appearance CLEAR Urine pH 6.5 (5.0-8.0) Ur Specific [place] 1.010 (1.001-1.035) Urine Protein NEGATIVE (NEGATIVE) mg/dL Urine Glucose (UA) NEGATIVE (NEGATIVE) mg/dL Urine Ketones NEGATIVE (NEGATIVE) mg/dL Urine Occult Blood NEGATIVE (NEGATIVE) Urine Nitrite NEGATIVE (NEGATIVE) Urine Bilirubin NEGATIVE (NEGATIVE) Urine Urobilinogen 0.2 (<2.0) EU/dL Ur Leukocyte Esterase NEGATIVE (NEGATIVE) SARS-CoV-2 RNA (KEI) (NEGATIVE) 02/23/20 02/23/20 Range/Units 03:05 06:05 WBC (4.0-11.0) K/uL RBC (4.30-5.90) M/uL Hgb (12.0-16.0) g/dL Hct (36.0-46.0) % MCV (80.0-98.0) fL MCH (27.0-32.0) pg MCHC (31.0-37.0) g/dL RDW Std Deviation (28.0-62.0) fl RDW Coeff of Brittny (11.0-15.0) % Plt Count (150-400) K/uL MPV (7.40-12.00) fL Neut % (Auto) (48.0-80.0) % Lymph % (Auto) (16.0-40.0) % [place] % (Auto) (0.0-15.0) % Eos % (Auto) (0.0-7.0) % Baso % (Auto) (0.0-1.5) % Neut # (Auto) (1.4-5.7) K/uL Lymph # (Auto) (0.6-2.4) K/uL [place] # (Auto) (0.0-0.8) K/uL Eos # (Auto) (0.0-0.7) K/uL Baso # (Auto) (0.0-0.1) K/uL Nucleated RBC % /100WBC Nucleated RBCs # K/uL INR ABG pH 7.425 (7.35-7.45) ABG pCO2 45 (35-45) mmHG ABG pO2 59 L (75-100) mmHG ABG HCO3 30 H (22-26) mEq/L ABG Total CO2 27.3 ABG Base Excess 4.6 H (-2.0-2.0) Sodium (136-145) mmol/L Potassium (3.5-5.1) mmol/L Chloride (98-107) mmol/L Carbon Dioxide (21.0-32.0) mmol/L BUN (7.0-18.0) mg/dL Creatinine (0.6-1.0) mg/dL Est Cr Clr Drug Dosing Estimated GFR (MDRD) ml/min Glucose (74-106) mg/dL Calcium (8.5-10.1) mg/dL Phosphorus (2.6-4.7) mg/dL Magnesium (1.8-2.4) mg/dL Total Bilirubin (0.2-1.0) mg/dL AST (15-37) IU/L ALT (14-63) IU/L Alkaline Phosphatase (46-116) U/L Troponin I (0.000-0.056) ng/mL Total Protein (6.4-8.2) g/dL Albumin (3.4-5.0) g/dL Globulin (2.6-4.0) g/dL Albumin/Globulin Ratio (0.9-1.6) Urine Color Urine Appearance Urine pH (5.0-8.0) Ur Specific [place] (1.001-1.035) Urine Protein (NEGATIVE) mg/dL Urine Glucose (UA) (NEGATIVE) mg/dL Urine Ketones (NEGATIVE) mg/dL Urine Occult Blood (NEGATIVE) Urine Nitrite (NEGATIVE) Urine Bilirubin (NEGATIVE) Urine Urobilinogen (<2.0) EU/dL Ur Leukocyte Esterase (NEGATIVE) SARS-CoV-2 RNA (KEI) NEGATIVE (NEGATIVE) Result Diagrams: 02/23/20 10:30 02/23/20 10:30 Sepsis Event Note - Evaluation Sepsis Screening Result: No Definite Risk - Focused Exam Vital Signs: Vital Signs Temp Pulse Resp BP Pulse Ox 02/22/20 23:28 98.7 F 77 18 114/56 L 90 L - Problem List (1) Contusion of knee SNOMED Code(s): 59916995 ICD Code: S80.00XA - CONTUSION OF UNSPECIFIED KNEE, INITIAL ENCOUNTER Status: Acute Current Visit: Yes (2) Afib SNOMED Code(s): 28579712 ICD Code: I48.91 - UNSPECIFIED ATRIAL FIBRILLATION Status: Chronic Current Visit: Yes Qualifiers: Atrial fibrillation type: persistent (not longstanding) Qualified Code(s): I48.19 - Other persistent atrial fibrillation; I48.1 - Persistent atrial fibrillation (3) HTN (hypertension) SNOMED Code(s): 46925205 ICD Code: I10 - ESSENTIAL (PRIMARY) HYPERTENSION Status: Chronic Current Visit: Yes (4) HLD (hyperlipidemia) SNOMED Code(s): 32020107 ICD Code: E78.5 - HYPERLIPIDEMIA, UNSPECIFIED Status: Chronic Current Visit: Yes (5) Wheelchair bound SNOMED Code(s): 197956025, 628261729 ICD Code: Z99.3 - DEPENDENCE ON WHEELCHAIR Status: Chronic Current Visit: Yes (6) KEVAN (acute kidney injury) SNOMED Code(s): 77005546, 78488725 ICD Code: N17.9 - ACUTE KIDNEY FAILURE, UNSPECIFIED Status: Acute Current Visit: No (7) Dehydration SNOMED Code(s): 14196316 ICD Code: E86.0 - DEHYDRATION Status: Acute Current Visit: No (8) CAP (community acquired pneumonia) SNOMED Code(s): 699018767 ICD Code: J18.9 - PNEUMONIA, UNSPECIFIED ORGANISM Status: Acute Current Visit: Yes (9) Hypoxia SNOMED Code(s): 752040502 ICD Code: R09.02 - HYPOXEMIA Status: Acute Current Visit: Yes Problem List Initiated/Reviewed/Updated: Yes Orders Last 24hrs: Active Orders 24 hr Category Date Time Status Admission Status [Patient Status] [ADT] Stat ADT 02/23/20 03:15 Active Antiembolic Devices [RC] PER UNIT ROUTINE Care 02/23/20 05:45 Active EKG Documentation Completion [RC] AM Care 02/22/20 23:29 Active Oxygen Therapy Adult [Oxygen Therapy] [RC] ASDIRECTED Care 02/23/20 05:43 Active RT Aerosol Therapy [RC] ASDIRECTED Care 02/23/20 05:48 Active Up to Chair [RC] ASDIRECTED Care 02/23/20 07:54 Ordered VTE/DVT Education [RC] PER UNIT ROUTINE Care 02/23/20 07:54 Ordered Vital Signs [RC] Q4H Care 02/23/20 08:00 Active PT Evaluation and Treatment [CONS] Routine Cons 02/23/20 05:47 Active Heart Healthy Diet [DIET] Diet 02/23/20 Breakfast Active Acetaminophen [TylenoL] Med 02/23/20 05:44 Active 650 mg PO Q6H PRN Albuterol/Ipratropium [DuoNeb 3.0-0.5 MG/3 ML] Med 02/23/20 05:48 Active 3 ml NEB Q4HRRT PRN Azithromycin [Zithromax] 500 mg Med 02/23/20 06:00 Active Sodium Chloride 0.9% [Normal Saline (AdvBag)] 250 ml IV DAILY@0600 Lactated Ringers [Ringers, Lactated] 1,000 ml Med 02/23/20 05:45 Active IV ASDIRECTED Ondansetron [Zofran] Med 02/23/20 07:54 Ordered 4 mg IVPUSH Q4H PRN Sodium Chloride 0.9% [Saline Flush] Med 02/22/20 23:29 Active 10 ml FLUSH ASDIRECTED PRN Sodium Chloride 0.9% [Saline Flush] Med 02/22/20 23:29 Active 2.5 ml FLUSH ASDIRECTED PRN SCD [Sequential Compression Device] [OM.PC] Routine Oth 02/23/20 05:45 Ordered Saline Lock Insert [OM.PC] Stat Oth 02/22/20 23:30 Ordered Resuscitation Status Routine Resus Stat 02/23/20 07:54 Ordered Medication Orders Acetaminophen (Tylenol) 650 mg PO Q6H PRN PRN Reason: Pain Albuterol/Ipratropium (Duoneb 3.0-0.5 Mg/3 Ml) 3 ml NEB Q4HRRT PRN PRN Reason: Wheezing Lactated Ringer's (Ringers, Lactated) 1,000 mls @ 125 mls/hr IV ASDIRECTED [facility] Last Admin: 02/23/20 06:55 Dose: 125 mls/hr Documented by: PROFLUC Azithromycin 500 mg/ Sodium (Chloride) 250 mls @ 250 mls/hr IV DAILY@0600 [facility] Last Admin: 02/23/20 06:55 Dose: 250 mls/hr Documented by: PROFLUC Ondansetron HCl (Zofran) 4 mg IVPUSH Q4H PRN PRN Reason: Nausea Sodium Chloride (Saline Flush) 10 ml FLUSH ASDIRECTED PRN PRN Reason: Keep Vein Open Last Admin: 02/22/20 23:45 Dose: 10 ml Documented by: LIDIA Sodium Chloride (Saline Flush) 2.5 ml FLUSH ASDIRECTED PRN PRN Reason: Keep Vein Open Last Admin: 02/22/20 23:45 Dose: 2.5 ml Documented by: LIDIA Assessment/Plan Comment:: This 69 year old female admitted with R knee contusion, fall, hypoxia, and possible CAP 1. R knee contusion - Monitor sedating medications - Ice to knee for pain relief - PT to evaluate and treat 2. Hypoxia, possible CAP, pulmonary fibrosis - Rocephin and Azithromycin given - Leukocytosis improved - Solumedrol 40 mg IV BID - Encourage IS 3. HTN/Afib/HLD - Obtain Med rec and restart anticoagulation and rate controlling medications 4. Chronic pain: - Holding sedating meds for oversedation. Re assess as patient becomes more alert. - Takes chronic Ativan 30 mg BID. Holding for sedation PRN Ativan in place in c ase of increase agitation or anxiety. Monitor for benzodiazepine withdrawal. VTE prophylaxis: Mauricio Dispo: will make inpatient as she may need longer than 2 midnight stay. Case management did talk with patient, she is safe at home and son provides 24 hour care for her. - Mortality Measure Prognosis:: Good
[2020-02-23] MEDS: cefTRIAXone 1 GM in Premix Bag 1 BAG IV SCH (09:55)
[2020-02-23 11:05] LABS: CARBON DIOXIDE,CO2 27.3 mmol/L (21.0-32.0); POTASSIUM,K 3.8 mmol/L (3.5-5.1)
[2020-02-23] MEDS: Acetaminophen 325 MG Tab PO PRN ×2 (16:05→21:51)
[2020-02-23] MEDS: methylPREDNISolone Sodium Succinate 40 MG/1 ML SDV IV SCH (17:03)
[2020-02-23] MEDS: LORazepam 2 MG/ML SDV IVPUSH PRN (21:49)
[2020-02-24] MEDS: Acetaminophen 325 MG Tab PO PRN ×2 (03:39→11:23)
[2020-02-24] MEDS: LORazepam 2 MG/ML SDV IVPUSH PRN (03:40)
[2020-02-24] MEDS: Azithromycin 500 MG in Sodium Chloride 0.9% 250 ML IV SCH (05:54)
[2020-02-24] MEDS: methylPREDNISolone Sodium Succinate 40 MG/1 ML SDV IV SCH (05:54)
[2020-02-24 06:05] LABS: BLOOD UREA NITROGEN,BUN 14 mg/dL (7.0-18.0); CARBON DIOXIDE,CO2 27.2 mmol/L (21.0-32.0); CHLORIDE,CL 106 mmol/L (98-107); GLUCOSE RANDOM 170 mg/dL (74-106); POTASSIUM,K 4.1 mmol/L (3.5-5.1); SODIUM,NA 141 mmol/L (136-145)
[2020-02-24] MEDS ORDERED: Escitalopram 10 MG Tab PO SCH (09:00)
[2020-02-24] MEDS ORDERED: Olmesartan 20 MG Tab PO SCH (09:00)
[2020-02-24] MEDS ORDERED: Diltiazem 120 MG Cap.CD PO SCH (09:00)
[2020-02-24] MEDS ORDERED: DULoxetine 60 MG Cap PO SCH (09:00)
[2020-02-24] MEDS ORDERED: Furosemide 20 MG Tab PO SCH (09:00)
[2020-02-24] MEDS ORDERED: Apixaban 5 MG Tab PO SCH (09:00)
--- NOTE | 2020-02-24 10:37 | PCM.DCSUM1 ---
Discharge Summary - Hospital Course Brief History: This 69 year old female with pmh of CVA, multiple TIAs, HLD, HTN, Afib on Xarelto, non ambulatory due to chronic hip pain and wheelchair bound presented to the ED last night with R knee pain. It is unclear as to why she came in exactly. She reports this morning she has no idea what happened last night and is wanting to go home. She reports she has been doing well at home prior to this. She did fall out of her wheelchair on her R knee last Friday and has been having more pain. She then asked for refills of her chronic narcotics as she is out and a new script does not start until Friday. She reports she takes Tramadol and Hydrocodone as well as 3 mg Lorazepam BID. She denies taking more medication than prescribed. She denies any chest pain or sob. No fevers or chills. No abdominal pain or trouble urinating. In the ED leukocytosis noted and slightly elevated Cr 1.3. Ua negative. Tox showed +opiates and +benzodiazepines. CXR negative for acute changes, but showed mild pulmonary fibrosis. Femur xray, shows mild joint effusion to R knee, no acute fractures. She was very sedated in the ED and unsafe to return home. Admitted for R knee pain, hypoxia, and possible CAP. Diagnosis: Stroke: No Modified Malik Scale: No Symptoms at All Modified Malik Scale Score: 0 - Discharge Data Discharge Date: 02/24/20 Discharge Disposition: Home, Home Health Agency 06 Condition: Fair - Referral to Home Health Date of Face to Face Encounter: 02/24/20 Reason for Homebound Status: Resume Home Health Primary Care Physician: PCP None Skilled Need: Resume Home Health - Discharge Diagnosis/Problem(s) (1) Contusion of knee SNOMED Code(s): 79846528 ICD Code: S80.00XA - CONTUSION OF UNSPECIFIED KNEE, INITIAL ENCOUNTER Status: Acute (2) Afib SNOMED Code(s): 55508490 ICD Code: I48.91 - UNSPECIFIED ATRIAL FIBRILLATION Status: Chronic Qualifiers: Atrial fibrillation type: persistent (not longstanding) Qualified Code(s): I48.19 - Other persistent atrial fibrillation; I48.1 - Persistent atrial fibrillation (3) HTN (hypertension) SNOMED Code(s): 90788656 ICD Code: I10 - ESSENTIAL (PRIMARY) HYPERTENSION Status: Chronic (4) HLD (hyperlipidemia) SNOMED Code(s): 50803101 ICD Code: E78.5 - HYPERLIPIDEMIA, UNSPECIFIED Status: Chronic (5) Wheelchair bound SNOMED Code(s): 404349655, 107287509 ICD Code: Z99.3 - DEPENDENCE ON WHEELCHAIR Status: Chronic (6) KEVAN (acute kidney injury) SNOMED Code(s): 94259265, 00161788 ICD Code: N17.9 - ACUTE KIDNEY FAILURE, UNSPECIFIED Status: Acute (7) Dehydration SNOMED Code(s): 49416952 ICD Code: E86.0 - DEHYDRATION Status: Acute (8) CAP (community acquired pneumonia) SNOMED Code(s): 589126865 ICD Code: J18.9 - PNEUMONIA, UNSPECIFIED ORGANISM Status: Acute (9) Hypoxia SNOMED Code(s): 761339823 ICD Code: R09.02 - HYPOXEMIA Status: Acute - Patient Summary/Data Consults: Consultations 02/23/20 05:47 PT Evaluation and Treatment [CONS] Routine Hospital Course: Admitting Diagnoses: Over sedation COPD exacerbation Britt was admitted secondary to fall and oversedation. On admission, she was very hard to arouse. U tox revealed opiates and benzodiazepines. She woke up later on in the day and reported she was not aware of why she was in the ED and had no idea what happened. She reported chronic pain and mild new pain to R knee which was found to have mild joint effusion. She was treated with Azithromycin and Solumedrol for possible COPD exacerbation. Today she is much better and continues to be alert. Discussed the dangerous nature of her mixture of medications. We encouraged her to talk with PCP and stopping narcotics and benzodiazepines. She felt she could try cut back, but reports she has tried many other medications with no results. At this time we recommended stopping Hydrocodone and Ativan, she needs to cut back on Ativan use reporting she uses 3 mg BID. She asked hospitalist service for refills, these were denied. She was encouraged to call PCP as they should be the ones to provide refills. ON discharge she is alert and oriented, on RA, no complaints. WIll continue Prednisone x 4 more days and Azithromycin for 4 more days as well. She is to return to the ED or clinic if concerns should arise. - Patient Instructions Diet: Heart Healthy Diet Activity: No Strenuous Activities, Rest and Relax Today Driving: Do Not Drive Showering/Bathing: May Shower Notify Provider of: Fever, Increased Pain, Swelling and Redness, Drainage, Nausea and/or Vomiting - Discharge Plan *PRESCRIPTION DRUG MONITORING PROGRAM REVIEWED*: Not Applicable *COPY OF PRESCRIPTION DRUG MONITORING REPORT IN PATIENT ALMA ROSA: Not Applicable Prescriptions/Med Rec: Azithromycin 500 mg PO DAILY #4 tablet predniSONE [Prednisone] 40 mg PO DAILY #8 tablet Home Medications: Home Meds DULoxetine HCl [Duloxetine HCl] 120 mg PO DAILY 12/22/13 [History] Apixaban [Eliquis] 5 mg PO BID 08/14/15 [History] Esomeprazole [NexIUM] 40 mg PO DAILY 08/21/17 [History] Olmesartan Medoxomil 40 mg PO DAILY 09/07/19 [History] Albuterol/Ipratropium [Combivent Respimat] 1 inhalation PO QID PRN 02/02/20 [History] Cyclobenzaprine [Flexeril] 5 mg PO QID PRN 02/02/20 [History] Escitalopram [Lexapro] 10 mg PO DAILY 02/02/20 [History] Furosemide 20 mg PO DAILY 02/02/20 [History] Gabapentin [Neurontin] 600 mg PO TID 02/02/20 [History] Levalbuterol Tartrate [Xopenex HFA] 2 inhalation PO Q4H PRN 02/02/20 [History] Diclofenac Sodium 1 applic TOP QID PRN 02/23/20 [History] dilTIAZem HCL [Diltiazem 24Hr ER] 240 mg PO DAILY 02/23/20 [History] hydrOXYzine pamoate [Hydroxyzine Pamoate] 25 mg PO TID PRN 02/23/20 [History] traMADol [Ultram] 100 mg PO BID PRN 02/23/20 [History] Azithromycin 500 mg PO DAILY #4 tablet 02/24/20 [Rx] predniSONE [Prednisone] 40 mg PO DAILY #8 tablet 02/24/20 [Rx] Oxygen Therapy Mode: Room Air Patient Handouts: Acute Knee Pain, Adult, Contusion, Ultl-no-[id number], Azithromycin tablets, Prednisone tablets Referrals: Meghna Irby DO [Ordering Only Provider] - (folllow up in 1 week) - Discharge Summary/Plan Comment DC Time >30 min.: No - Patient Data Vitals - Most Recent: Last Vital Signs Temp 98.3 F 02/24/20 07:54 Pulse 68 02/24/20 07:54 Resp 14 02/24/20 07:54 BP 144/68 H 02/24/20 07:54 Pulse Ox 96 02/24/20 07:54 Weight - Most Recent: 84.368 kg I&O - Last 24 hours: Intake & Output 02/23/20 02/24/20 02/24/20 22:59 06:59 14:59 Intake Total 2172 Balance 2172 Lab Results - Last 24 hrs: Laboratory Results - last 24 hr 02/23/20 02/23/20 02/24/20 Range/Units 10:30 10:30 05:00 WBC 10.27 13.16 H (4.0-11.0) K/uL RBC 3.92 L 3.74 L (4.30-5.90) M/uL Hgb 11.9 L 11.3 L (12.0-16.0) g/dL Hct 37.0 35.2 L (36.0-46.0) % MCV 94.4 94.1 (80.0-98.0) fL MCH 30.4 30.2 (27.0-32.0) pg MCHC 32.2 32.1 (31.0-37.0) g/dL RDW Std Deviation 46.9 45.9 (28.0-62.0) fl RDW Coeff of Brittny 14 13 (11.0-15.0) % Plt Count 243 266 (150-400) K/uL MPV 11.70 11.60 (7.40-12.00) fL Neut % (Auto) 89.9 H 81.5 H (48.0-80.0) % Lymph % (Auto) 8.9 L 15.3 L (16.0-40.0) % Barnes % (Auto) 0.8 3.2 (0.0-15.0) % Eos % (Auto) 0.2 0.0 (0.0-7.0) % Baso % (Auto) 0.2 0.0 (0.0-1.5) % Neut # (Auto) 9.2 H 10.7 H (1.4-5.7) K/uL Lymph # (Auto) 0.9 2.0 (0.6-2.4) K/uL Barnes # (Auto) 0.1 0.4 (0.0-0.8) K/uL Eos # (Auto) 0.0 0.0 (0.0-0.7) K/uL Baso # (Auto) 0.0 0.0 (0.0-0.1) K/uL Nucleated RBC % 0.0 0.0 /100WBC Nucleated RBCs # 0 0 K/uL Sodium 141 (136-145) mmol/L Potassium 3.8 (3.5-5.1) mmol/L Chloride 107 (98-107) mmol/L Carbon Dioxide 27.3 (21.0-32.0) mmol/L BUN 10 (7.0-18.0) mg/dL Creatinine 1.0 (0.6-1.0) mg/dL Est Cr Clr Drug Dosing 48.45 mL/min Estimated GFR (MDRD) 55.1 ml/min Glucose 139 H (74-106) mg/dL Calcium 8.7 (8.5-10.1) mg/dL 02/24/20 Range/Units 05:00 WBC (4.0-11.0) K/uL RBC (4.30-5.90) M/uL Hgb (12.0-16.0) g/dL Hct (36.0-46.0) % MCV (80.0-98.0) fL MCH (27.0-32.0) pg MCHC (31.0-37.0) g/dL RDW Std Deviation (28.0-62.0) fl RDW Coeff of Brittny (11.0-15.0) % Plt Count (150-400) K/uL MPV (7.40-12.00) fL Neut % (Auto) (48.0-80.0) % Lymph % (Auto) (16.0-40.0) % Barnes % (Auto) (0.0-15.0) % Eos % (Auto) (0.0-7.0) % Baso % (Auto) (0.0-1.5) % Neut # (Auto) (1.4-5.7) K/uL Lymph # (Auto) (0.6-2.4) K/uL Barnes # (Auto) (0.0-0.8) K/uL Eos # (Auto) (0.0-0.7) K/uL Baso # (Auto) (0.0-0.1) K/uL Nucleated RBC % /100WBC Nucleated RBCs # K/uL Sodium 141 (136-145) mmol/L Potassium 4.1 (3.5-5.1) mmol/L Chloride 106 (98-107) mmol/L Carbon Dioxide 27.2 (21.0-32.0) mmol/L BUN 14 (7.0-18.0) mg/dL Creatinine 0.9 (0.6-1.0) mg/dL Est Cr Clr Drug Dosing 53.83 mL/min Estimated GFR (MDRD) > 60.0 ml/min Glucose 170 H (74-106) mg/dL Calcium 8.8 (8.5-10.1) mg/dL Med Orders - Current: Current Medications Acetaminophen (Tylenol) 650 mg PO Q6H PRN PRN Reason: Pain Last Admin: 02/24/20 03:39 Dose: 650 mg Documented by: Albuterol/Ipratropium (Duoneb 3.0-0.5 Mg/3 Ml) 3 ml NEB Q4HRRT PRN PRN Reason: Wheezing Last Admin: 02/23/20 06:45 Dose: 3 ml Documented by: Apixaban (Eliquis) 5 mg PO BID [facility] Diltiazem HCl (Cardizem Cd) 240 mg PO DAILY [facility] Duloxetine HCl (Cymbalta) 120 mg PO DAILY [facility] Escitalopram Oxalate (Lexapro) 10 mg PO DAILY [facility] Furosemide (Lasix) 20 mg PO DAILY [facility] Azithromycin 500 mg/ Sodium (Chloride) 250 mls @ 250 mls/hr IV DAILY@0600 JARVIS Last Admin: 02/24/20 05:54 Dose: 250 mls/hr Documented by: Ceftriaxone Sodium/Dextrose 1 (gm/ Premix) 50 mls @ 100 mls/hr IV Q24H JARVIS Last Admin: 02/23/20 09:55 Dose: 100 mls/hr Documented by: Lorazepam (Ativan) 1 mg IVPUSH Q6H PRN PRN Reason: anxiety,agitation Last Admin: 02/24/20 03:40 Dose: 1 mg Documented by: Methylprednisolone Sodium Succinate (Solu-Medrol) 40 mg IV Q12H [facility] Last Admin: 02/24/20 05:54 Dose: 40 mg Documented by: Olmesartan (Benicar) 40 mg PO DAILY [facility] Ondansetron HCl (Zofran) 4 mg IVPUSH Q4H PRN PRN Reason: Nausea Esomeprazole [Nexium (] 40 Mg) 1 each PO ACBREAKFAST [facility] Sodium Chloride (Saline Flush) 10 ml FLUSH ASDIRECTED PRN PRN Reason: Keep Vein Open Last Admin: 02/22/20 23:45 Dose: 10 ml Documented by: Sodium Chloride (Saline Flush) 2.5 ml FLUSH ASDIRECTED PRN PRN Reason: Keep Vein Open Last Admin: 02/22/20 23:45 Dose: 2.5 ml Documented by: Discontinued Medications Lactated Ringer's (Ringers, Lactated) 1,000 mls @ 125 mls/hr IV ASDIRECTED [facility] Last Admin: 02/23/20 16:55 Dose: 125 mls/hr Documented by: Lactated Ringer's (Ringers, Lactated) 1,000 mls @ 999 mls/hr IV ONETIME ONE Stop: 02/23/20 06:47 Last Admin: 02/23/20 06:00 Dose: 999 mls/hr Documented by: Methylprednisolone Sodium Succinate (Solu-Medrol) 40 mg IVPUSH ONETIME ONE Stop: 02/23/20 05:50 Last Admin: 02/23/20 06:30 Dose: 40 mg Documented by:
[2020-02-24] MEDS: cefTRIAXone 1 GM in Premix Bag 1 BAG IV SCH (11:15)
[2020-02-24 11:51] VITALS: BP 180/75; PULSE 78
== END 2020-02-24 12:15 | disposition home health service (06) | DRG 555 ==
LOC: MW.ED 23:28 → MW.MS 02-23 03:15 → OBSVTOIN 02-23 10:12
PROVIDERS: ADMIT Student in an Organized Health Care Education/Training Program; ATTEND Student in an Organized Health Care Education/Training Program
DX: M25.561 Pain in right knee (principal); J18.9 Pneumonia, unspecified organism; J44.0 Chronic obstructive pulmonary disease with (acute) lower respiratory infection; I48.19 Other persistent atrial fibrillation; N17.9 Acute kidney failure, unspecified; I48.91 Unspecified atrial fibrillation; J44.1 Chronic obstructive pulmonary disease with (acute) exacerbation; S80.01XA Contusion of right knee, initial encounter; M25.461 Effusion, right knee; T42.4X5A Adverse effect of benzodiazepines, initial encounter; T40.605A Adverse effect of unspecified narcotics, initial encounter; R09.02 Hypoxemia; I10 Essential (primary) hypertension; J30.9 Allergic rhinitis, unspecified; H54.7 Unspecified visual loss; E78.5 Hyperlipidemia, unspecified; J44.9 Chronic obstructive pulmonary disease, unspecified; G89.29 Other chronic pain; T42.75XA Adverse effect of unspecified antiepileptic and sedative-hypnotic drugs, initial encounter; E78.00 Pure hypercholesterolemia, unspecified; M54.9 Dorsalgia, unspecified; F32.9 Major depressive disorder, single episode, unspecified; G47.30 Sleep apnea, unspecified; K21.9 Gastro-esophageal reflux disease without esophagitis; M19.90 Unspecified osteoarthritis, unspecified site; M81.0 Age-related osteoporosis without current pathological fracture; F31.9 Bipolar disorder, unspecified; E66.9 Obesity, unspecified; J84.10 Pulmonary fibrosis, unspecified; S70.01XA Contusion of right hip, initial encounter; F17.210 Nicotine dependence, cigarettes, uncomplicated; Z96.659 Presence of unspecified artificial knee joint; Z96.649 Presence of unspecified artificial hip joint; Z20.828 Contact with and (suspected) exposure to other viral communicable diseases; W05.0XXA Fall from non-moving wheelchair, initial encounter; E86.0 Dehydration; Z88.5 Allergy status to narcotic agent; Z88.8 Allergy status to other drugs, medicaments and biological substances; Z79.899 Other long term (current) drug therapy; Z86.73 Personal history of transient ischemic attack (TIA), and cerebral infarction without residual deficits; Z90.49 Acquired absence of other specified parts of digestive tract; Z98.49 Cataract extraction status, unspecified eye; Z99.3 Dependence on wheelchair; Z68.31 Body mass index [BMI] 31.0-31.9, adult; Z88.6 Allergy status to analgesic agent; Z79.01 Long term (current) use of anticoagulants
CPT/HCPCS: 36415 ×2; 36600 ×2; 70450; 71045; 72170; 73552; 80053; 80305; 81003; 82803; 83735; 84100; 84484; 85025; 85610; 93005; 99285; J0456; J0696; J2920; J7050; J7120 ×2; U0002; 80048; 93010; 97161-GP; 99222; 99238; 99284; A9270-GY; J2060; J7620-GY

== ENCOUNTER 2020-03-07 20:17 | Inpatient (IN) | payer MEDICARE, MEDICAID, OTHER ==
[2020-03-07] MEDS ORDERED: Sodium Chloride 0.9% 10 ML Syringe FLUSH PRN ×2 (21:16→22:54)
[2020-03-07] MEDS ORDERED: Sodium Chloride 0.9% 2.5 ML Syringe FLUSH PRN ×2 (21:16→22:54)
[2020-03-07] MEDS ORDERED: Sodium Chloride 0.9% 1,000 ML IV ONE (21:16)
[2020-03-07] MEDS ORDERED: cefTRIAXone 2 GM in Premix Bag 1 BAG IV ONE (21:16)
--- NOTE | 2020-03-07 21:30 | EDM.PDOC ---
ED HPI GENERAL MEDICAL PROBLEM - General Chief Complaint: General Stated Complaint: HYPERTENSIVE/NAUSEA Time Seen by Provider: 03/07/20 20:42 - History of Present Illness INITIAL COMMENTS - FREE TEXT/NARRATIVE: HISTORY AND PHYSICAL: History of present illness: 69-year-old female who comes in with acute altered mental status. Unclear as to the history. She cannot provide one. She is found to be incontinent of stool. She does not know that she is incontinent of stool. Review of systems: Cannot provide a review of systems secondary to altered mental status Physical exam: VITAL SIGNS: Reviewed. GENERAL: Very confused. Eye-opening is to voice, confused verbal response, knows her name but otherwise cannot give me any history. HEAD: No signs of head trauma. EYES: Pupils are equal. Extraocular motions intact. EARS: Hearing grossly intact. MOUTH: Oropharynx is normal. NECK: No adenopathy, no JVD. CHEST: Chest with clear breath sounds bilaterally. No wheezes, rales, or rhonchi. CARDIAC: Regular rate and rhythm. Normal S1 and S2, without murmurs, gallops, or rubs. VASCULAR: Peripheral pulses normal and equal in all extremities. ABDOMEN: Soft, without detectable tenderness. No sign of distention. No teo ound or guarding, and no masses palpated. MUSCULOSKELETAL: Good range of motion of all major joints. Extremities without clubbing, cyanosis or edema. NEUROLOGIC EXAM: Eye-opening is to voice, confused verbal response. No focal sensory or motor deficits. Follows commands. PSYCHIATRIC: Sedated and confused. SKIN: No rash or lesions. Initial Differential Diagnosis & Plan: The patient has altered mental status and I considered the following entities in the differential diagnosis: hypoglycemia, electrolyte imbalance, head trauma, intracranial bleed or mass, meningitis sepsis, transient ischemic attack or stroke, toxidrome/intoxication/medication effect, seizure or postictal state, hepatic encephalopathy, acid/base disturbance, hypercapnia. Unclear etiology. We will check for underlying electrolyte abnormality, abnormalities on head CT. The patient does not have any signs of meningeal signs however if she continues altered mental status we may need to have further analysis for underlying infection. Further work-up with medications, empiric antibiotics, and reevaluation. Definitive disposition and diagnosis as appropriate pending reevaluation and review of above. Epigastric Pain Score (Numeric/FACES): 6 - Related Data Allergies Allergy/AdvReac Type Severity Reaction Status Date / Time codeine Allergy Intermediate Airway Verified 02/01/20 19:34 Tightness meperidine HCl [From Demerol] Allergy Intermediate Airway Verified 02/01/20 19:34 Tightness morphine Allergy Intermediate Airway Verified 02/01/20 19:34 Tightness oxycodone [Oxycodone] Allergy Intermediate Airway Verified 02/01/20 19:34 Tightness lidocaine Allergy Anaphylactic Verified 02/01/20 19:34 Shock orphenadrine Allergy Airway Verified 02/01/20 19:34 Tightness varenicline tartrate Allergy Airway Verified 02/01/20 19:34 [From Chantix] Tightness Home Meds: Home Meds DULoxetine HCl [Duloxetine HCl] 120 mg PO DAILY 12/22/13 [History] Apixaban [Eliquis] 5 mg PO BID 08/14/15 [History] Esomeprazole [NexIUM] 40 mg PO DAILY 08/21/17 [History] Olmesartan Medoxomil 40 mg PO DAILY 09/07/19 [History] Albuterol/Ipratropium [Combivent Respimat] 1 inhalation PO QID PRN 02/02/20 [History] Cyclobenzaprine [Flexeril] 5 mg PO QID PRN 02/02/20 [History] Escitalopram [Lexapro] 10 mg PO DAILY 02/02/20 [History] Furosemide 20 mg PO DAILY 02/02/20 [History] Gabapentin [Neurontin] 600 mg PO TID 02/02/20 [History] Levalbuterol Tartrate [Xopenex HFA] 2 inhalation PO Q4H PRN 02/02/20 [History] Diclofenac Sodium 1 applic TOP QID PRN 02/23/20 [History] dilTIAZem HCL [Diltiazem 24Hr ER] 240 mg PO DAILY 02/23/20 [History] hydrOXYzine pamoate [Hydroxyzine Pamoate] 25 mg PO TID PRN 02/23/20 [History] traMADol [Ultram] 100 mg PO BID PRN 02/23/20 [History] Azithromycin 500 mg PO DAILY #4 tablet 02/24/20 [Rx] predniSONE [Prednisone] 40 mg PO DAILY #8 tablet 02/24/20 [Rx] Past Medical History HEENT History: Reports: Allergic Rhinitis, Impaired Vision, Other (See Below) Other HEENT History: wears reading glasses Cardiovascular History: Reports: Afib, High Cholesterol, Hypertension Respiratory History: Reports: Bronchitis, Recurrent, COPD, SOB, Other (See Below) Other Respiratory History: was tested for sleep apnea last week, no results yet Gastrointestinal History: Reports: Cholelithiasis, GERD Genitourinary History: Reports: None GROUNDS PERSON History: Reports: None Musculoskeletal History: Reports: Arthritis, Fracture, Osteoporosis Other Musculoskeletal History: states chronic back and right hip pain, hx of fx right wrist and right tib-fib, wheelchair bound due to hip pain and major SOB Neurological History: Reports: TIA Other Neuro History: has has TIA x2, 2009 and 2013. No residual weakness, no intervention done except physical therapy Psychiatric History: Reports: Bipolar, Depression Endocrine/Metabolic History: Reports: Obesity/BMI 30+, Other (See Below) Other Endocrine/Metabolic History: states has 2 "lumps" on thyroid as noted on ultrasound Hematologic History: Reports: None Immunologic History: Reports: None Oncologic (Cancer) History: Reports: None Dermatologic History: Reports: None - Infectious Disease History Infectious Disease History: Reports: Measles - Past Surgical History Head Surgeries/Procedures: Reports: None HEENT Surgical History: Reports: Cataract Surgery GI Surgical History: Reports: Bariatric Procedure, Cholecystectomy Female Surgical History: Reports: None Neurological Surgical History: Reports: None Musculoskeletal Surgical History: Reports: Hip Replacement, Knee Replacement, ORIF Social & Family History - Family History Family Medical History: Noncontributory - Caffeine Use Caffeine Use: Reports: Coffee Caffeine Use Comment: Unable to obtain. Pt is falling in and out of sleep, and is groggy. ED ROS GENERAL - Review of Systems Review Of Systems: See Below (noted) ED EXAM, GENERAL - Physical Exam Exam: See Below (noted) ED GENERAL MEDICAL PROCEDURES - Additional/Other Procedure(s) Other (Free Text) Procedure(s): Critical Care Note: The patient presented in critical status due to suspected severe sepsis requiring IV antibiotics The patient required rapid exam, decision making, and frequent re-evaluations during their time in the Emergency Department. Total Critical Care time exclusive of all other billable procedure time provided by myself 47 minutes #1 Interpretation EKG Interpretation Comments: 12 lead EKG interpretation Obtained: March 07, 2020 at 10:27 PM Rhythm: Sinus Rate: 82 [place]: Normal Intervals: Prolonged QT interval ST/T Segments: No acute ischemic changes Interpretation: Sinus rhythm with prolonged QT interval 553 ms Course - Vital Signs Text/Narrative:: Patient has unclear presentation. Initially thought most likely to have a urinary or intra-abdominal source. She is confused and I do not understand the cause of her metabolic encephalopathy. She is incontinent of stool. But it is not diarrhea. Unlikely that this is the source of infection. I have ordered a CT abdomen and pelvis along with a CT chest that Dr. Swartz will follow up on. The patient's initial troponin was elevated but there is no acute ischemic changes on the EKG. The patient does not have focal neurologic deficits and is otherwise awake and responsive but is confused and has repetitive type questioning. The patient does not have evidence of hypertensive encephalopathy and her blood pressure came down prior to admission. This could be the cause of her mildly elevated troponin. My diagnostic impression: 1. Metabolic encephalopathy unclear etiology 2. Elevated troponin; unclear etiology 3. Suspected sepsis given leukocytosis and confusion; unclear source CT chest on pelvis is pending Last Recorded V/S: Last Vital Signs Temp 97.8 F 03/08/20 02:10 Pulse 94 03/08/20 02:10 Resp 18 03/08/20 02:10 BP 196/102 H 03/08/20 03:07 Pulse Ox 95 03/08/20 02:52 - Orders/Labs/Meds Orders: Active Orders 24 hr Category Date Time Status Blood Pressure Mgt: Sepsis [RC] Q15MX2 Care 03/07/20 22:55 Active Pulse Oximetry [RC] ASDIRECTED Care 03/07/20 21:17 Active CULTURE BLOOD [BC] Stat Lab 03/07/20 22:36 Received CULTURE BLOOD [BC] Stat Lab 03/07/20 22:45 Received Sodium Chloride 0.9% [Saline Flush] Med 03/07/20 21:16 Active 10 ml FLUSH ASDIRECTED PRN Sodium Chloride 0.9% [Saline Flush] Med 03/07/20 22:54 Active 10 ml FLUSH ASDIRECTED PRN Sodium Chloride 0.9% [Saline Flush] Med 03/07/20 21:16 Active 2.5 ml FLUSH ASDIRECTED PRN Sodium Chloride 0.9% [Saline Flush] Med 03/07/20 22:54 Active 2.5 ml FLUSH ASDIRECTED PRN Blood Culture x2 Reflex Set [OM.PC] Stat Oth 03/07/20 21:18 Ordered Saline Lock Insert [OM.PC] Stat Oth 03/07/20 21:17 Ordered Saline Lock Insert [OM.PC] Stat Oth 03/07/20 22:54 Ordered Severe Sepsis Onset Time [OM.PC] Stat Oth 03/07/20 22:54 Ordered Medication Orders Acetaminophen (Tylenol) 650 mg PO Q6H PRN PRN Reason: Pain Pantoprazole Sodium 40 mg/ (Sodium Chloride) 10 mls @ 300 mls/hr IV Q24H JARVIS Last Admin: 03/08/20 03:54 Dose: 300 mls/hr Documented by: TRISHALESONNY Ondansetron HCl (Zofran) 4 mg IVPUSH Q4H PRN PRN Reason: Nausea/Vomiting Last Admin: 03/08/20 03:00 Dose: 4 mg Documented by: TRISHALESONNY Sodium Chloride (Saline Flush) 2.5 ml FLUSH ASDIRECTED PRN PRN Reason: Keep Vein Open Sodium Chloride (Saline Flush) 10 ml FLUSH ASDIRECTED PRN PRN Reason: Keep Vein Open Sodium Chloride (Saline Flush) 10 ml FLUSH ASDIRECTED PRN PRN Reason: Keep Vein Open Sodium Chloride (Saline Flush) 2.5 ml FLUSH ASDIRECTED PRN PRN Reason: Keep Vein Open Labs: Laboratory Tests 03/07/20 03/07/20 03/07/20 Range/Units 20:20 20:20 20:20 WBC 19.68 H (4.0-11.0) K/uL RBC 4.65 (4.30-5.90) M/uL Hgb 14.4 (12.0-16.0) g/dL Hct 42.6 (36.0-46.0) % MCV 91.6 (80.0-98.0) fL MCH 31.0 (27.0-32.0) pg MCHC 33.8 (31.0-37.0) g/dL RDW Std Deviation 46.1 (28.0-62.0) fl RDW Coeff of Brittny 14 (11.0-15.0) % Plt Count 275 (150-400) K/uL MPV 11.80 (7.40-12.00) fL Neut % (Auto) 91.2 H (48.0-80.0) % Lymph % (Auto) 6.4 L (16.0-40.0) % [place] % (Auto) 2.3 (0.0-15.0) % Eos % (Auto) 0.0 (0.0-7.0) % Baso % (Auto) 0.1 (0.0-1.5) % Neut # (Auto) 18.0 H (1.4-5.7) K/uL Lymph # (Auto) 1.3 (0.6-2.4) K/uL [place] # (Auto) 0.5 (0.0-0.8) K/uL Eos # (Auto) 0.0 (0.0-0.7) K/uL Baso # (Auto) 0.0 (0.0-0.1) K/uL Nucleated RBC % 0.0 /100WBC Nucleated RBCs # 0 K/uL INR 1.09 APTT (18.6-31.3) SEC Lactate 1.3 (0.20-2.00) mmol/L Sodium (136-145) mmol/L Potassium (3.5-5.1) mmol/L Chloride (98-107) mmol/L Carbon Dioxide (21.0-32.0) mmol/L BUN (7.0-18.0) mg/dL Creatinine (0.6-1.0) mg/dL Est Cr Clr Drug Dosing Estimated GFR (MDRD) ml/min Glucose (74-106) mg/dL Calcium (8.5-10.1) mg/dL Magnesium (1.8-2.4) mg/dL Total Bilirubin (0.2-1.0) mg/dL AST (15-37) IU/L ALT (14-63) IU/L Alkaline Phosphatase (46-116) U/L Troponin I (0.000-0.056) ng/mL Total Protein (6.4-8.2) g/dL Albumin (3.4-5.0) g/dL Globulin (2.6-4.0) g/dL Albumin/Globulin Ratio (0.9-1.6) Urine Color Urine Appearance Urine pH (5.0-8.0) Ur Specific [place] (1.001-1.035) Urine Protein (NEGATIVE) mg/dL Urine Glucose (UA) (NEGATIVE) mg/dL Urine Ketones (NEGATIVE) mg/dL Urine Occult Blood (NEGATIVE) Urine Nitrite (NEGATIVE) Urine Bilirubin (NEGATIVE) Urine Ictotest Urine Urobilinogen (<2.0) EU/dL Ur Leukocyte Esterase (NEGATIVE) Urine RBC (0-2/HPF) Urine WBC (0-5/HPF) Ur Epithelial Cells (NONE-FEW) Urine Bacteria (NEGATIVE) Urine Mucus (NONE-MOD) Urine Opiates Screen (NEGATIVE) Ur Oxycodone Screen (NEGATIVE) Urine Methadone Screen (NEGATIVE) Ur Barbiturates Screen (NEGATIVE) Ur Phencyclidine Scrn (NEGATIVE) Ur Amphetamine Screen (NEGATIVE) U Methamphetamines Scrn (NEGATIVE) U Benzodiazepines Scrn (NEGATIVE) U Cocaine Metab Screen (NEGATIVE) U Marijuana (THC) Screen (NEGATIVE) Ethyl Alcohol mg/dL SARS-CoV-2 RNA (KEI) (NEGATIVE) 03/07/20 03/07/20 03/07/20 Range/Units 20:20 20:20 22:47 WBC (4.0-11.0) K/uL RBC (4.30-5.90) M/uL Hgb (12.0-16.0) g/dL Hct (36.0-46.0) % MCV (80.0-98.0) fL MCH (27.0-32.0) pg MCHC (31.0-37.0) g/dL RDW Std Deviation (28.0-62.0) fl RDW Coeff of Brittny (11.0-15.0) % Plt Count (150-400) K/uL MPV (7.40-12.00) fL Neut % (Auto) (48.0-80.0) % Lymph % (Auto) (16.0-40.0) % [place] % (Auto) (0.0-15.0) % Eos % (Auto) (0.0-7.0) % Baso % (Auto) (0.0-1.5) % Neut # (Auto) (1.4-5.7) K/uL Lymph # (Auto) (0.6-2.4) K/uL [place] # (Auto) (0.0-0.8) K/uL Eos # (Auto) (0.0-0.7) K/uL Baso # (Auto) (0.0-0.1) K/uL Nucleated RBC % /100WBC Nucleated RBCs # K/uL INR APTT 25.1 (18.6-31.3) SEC Lactate (0.20-2.00) mmol/L Sodium 138 (136-145) mmol/L Potassium 3.2 L (3.5-5.1) mmol/L Chloride 102 (98-107) mmol/L Carbon Dioxide 22.8 (21.0-32.0) mmol/L BUN 14 (7.0-18.0) mg/dL Creatinine 0.9 (0.6-1.0) mg/dL Est Cr Clr Drug Dosing TNP Estimated GFR (MDRD) > 60.0 ml/min Glucose 158 H (74-106) mg/dL Calcium 8.9 (8.5-10.1) mg/dL Magnesium 2.0 (1.8-2.4) mg/dL Total Bilirubin 0.8 (0.2-1.0) mg/dL AST 32 (15-37) IU/L ALT 31 (14-63) IU/L Alkaline Phosphatase 153 H (46-116) U/L Troponin I 0.082 H* (0.000-0.056) ng/mL Total Protein 7.6 (6.4-8.2) g/dL Albumin 3.8 (3.4-5.0) g/dL Globulin 3.8 (2.6-4.0) g/dL Albumin/Globulin Ratio 1.0 (0.9-1.6) Urine Color Urine Appearance Urine pH (5.0-8.0) Ur Specific [place] (1.001-1.035) Urine Protein (NEGATIVE) mg/dL Urine Glucose (UA) (NEGATIVE) mg/dL Urine Ketones (NEGATIVE) mg/dL Urine Occult Blood (NEGATIVE) Urine Nitrite (NEGATIVE) Urine Bilirubin (NEGATIVE) Urine Ictotest Urine Urobilinogen (<2.0) EU/dL Ur Leukocyte Esterase (NEGATIVE) Urine RBC (0-2/HPF) Urine WBC (0-5/HPF) Ur Epithelial Cells (NONE-FEW) Urine Bacteria (NEGATIVE) Urine Mucus (NONE-MOD) Urine Opiates Screen (NEGATIVE) Ur Oxycodone Screen (NEGATIVE) Urine Methadone Screen (NEGATIVE) Ur Barbiturates Screen (NEGATIVE) Ur Phencyclidine Scrn (NEGATIVE) Ur Amphetamine Screen (NEGATIVE) U Methamphetamines Scrn (NEGATIVE) U Benzodiazepines Scrn (NEGATIVE) U Cocaine Metab Screen (NEGATIVE) U Marijuana (THC) Screen (NEGATIVE) Ethyl Alcohol <3 mg/dL SARS-CoV-2 RNA (KEI) NEGATIVE (NEGATIVE) 03/08/20 03/08/20 Range/Units 00:10 00:10 WBC (4.0-11.0) K/uL RBC (4.30-5.90) M/uL Hgb (12.0-16.0) g/dL Hct (36.0-46.0) % MCV (80.0-98.0) fL MCH (27.0-32.0) pg MCHC (31.0-37.0) g/dL RDW Std Deviation (28.0-62.0) fl RDW Coeff of Brittny (11.0-15.0) % Plt Count (150-400) K/uL MPV (7.40-12.00) fL Neut % (Auto) (48.0-80.0) % Lymph % (Auto) (16.0-40.0) % [place] % (Auto) (0.0-15.0) % Eos % (Auto) (0.0-7.0) % Baso % (Auto) (0.0-1.5) % Neut # (Auto) (1.4-5.7) K/uL Lymph # (Auto) (0.6-2.4) K/uL [place] # (Auto) (0.0-0.8) K/uL Eos # (Auto) (0.0-0.7) K/uL Baso # (Auto) (0.0-0.1) K/uL Nucleated RBC % /100WBC Nucleated RBCs # K/uL INR APTT (18.6-31.3) SEC Lactate (0.20-2.00) mmol/L Sodium (136-145) mmol/L Potassium (3.5-5.1) mmol/L Chloride (98-107) mmol/L Carbon Dioxide (21.0-32.0) mmol/L BUN (7.0-18.0) mg/dL Creatinine (0.6-1.0) mg/dL Est Cr Clr Drug Dosing Estimated GFR (MDRD) ml/min Glucose (74-106) mg/dL Calcium (8.5-10.1) mg/dL Magnesium (1.8-2.4) mg/dL Total Bilirubin (0.2-1.0) mg/dL AST (15-37) IU/L ALT (14-63) IU/L Alkaline Phosphatase (46-116) U/L Troponin I (0.000-0.056) ng/mL Total Protein (6.4-8.2) g/dL Albumin (3.4-5.0) g/dL Globulin (2.6-4.0) g/dL Albumin/Globulin Ratio (0.9-1.6) Urine Color YELLOW Urine Appearance CLEAR Urine pH 5.5 (5.0-8.0) Ur Specific [place] >= 1.030 (1.001-1.035) Urine Protein TRACE H (NEGATIVE) mg/dL Urine Glucose (UA) NEGATIVE (NEGATIVE) mg/dL Urine Ketones >=80 (NEGATIVE) mg/dL Urine Occult Blood NEGATIVE (NEGATIVE) Urine Nitrite NEGATIVE (NEGATIVE) Urine Bilirubin SMALL H (NEGATIVE) Urine Ictotest NEGATIVE Urine Urobilinogen 0.2 (<2.0) EU/dL Ur Leukocyte Esterase NEGATIVE (NEGATIVE) Urine RBC 0-2 (0-2/HPF) Urine WBC 0-2 (0-5/HPF) Ur Epithelial Cells OCCASIONAL (NONE-FEW) Urine Bacteria FEW (NEGATIVE) Urine Mucus LIGHT (NONE-MOD) Urine Opiates Screen NEGATIVE (NEGATIVE) Ur Oxycodone Screen NEGATIVE (NEGATIVE) Urine Methadone Screen NEGATIVE (NEGATIVE) Ur Barbiturates Screen NEGATIVE (NEGATIVE) Ur Phencyclidine Scrn NEGATIVE (NEGATIVE) Ur Amphetamine Screen NEGATIVE (NEGATIVE) U Methamphetamines Scrn NEGATIVE (NEGATIVE) U Benzodiazepines Scrn POSITIVE (NEGATIVE) U Cocaine Metab Screen NEGATIVE (NEGATIVE) U Marijuana (THC) Screen NEGATIVE (NEGATIVE) Ethyl Alcohol mg/dL SARS-CoV-2 RNA (KEI) (NEGATIVE) Meds: Medications Generic Name Dose Route Start Last Admin Trade Name Freq PRN Reason Stop Dose Admin Acetaminophen 650 mg 03/08/20 02:28 Tylenol PO Q6H PRN Pain Pantoprazole Sodium 40 mg/ 10 mls @ 300 mls/hr 03/08/20 03:45 03/08/20 03:54 Sodium Chloride IV 300 mls/hr Q24H JARVIS Administration Ondansetron HCl 4 mg 03/08/20 02:28 03/08/20 03:00 Zofran IVPUSH 4 mg Q4H PRN Administration Nausea/Vomiting Sodium Chloride 2.5 ml 03/07/20 21:16 Saline Flush FLUSH ASDIRECTED PRN Keep Vein Open Sodium Chloride 10 ml 03/07/20 21:16 Saline Flush FLUSH ASDIRECTED PRN Keep Vein Open Sodium Chloride 10 ml 03/07/20 22:54 Saline Flush FLUSH ASDIRECTED PRN Keep Vein Open Sodium Chloride 2.5 ml 03/07/20 22:54 Saline Flush FLUSH ASDIRECTED PRN Keep Vein Open Discontinued Medications Generic Name Dose Route Start Last Admin Trade Name Freq PRN Reason Stop Dose Admin Aspirin 325 mg 03/08/20 03:33 03/08/20 03:51 Aspirin PO 03/08/20 03:34 325 mg ONETIME ONE Administration Sodium Chloride 1,000 mls @ 999 mls/hr 03/07/20 21:16 03/07/20 22:11 Normal Saline IV 03/07/20 22:16 999 mls/hr .Bolus ONE Administration Ceftriaxone Sodium/Dextrose 2 50 mls @ 100 mls/hr 03/07/20 21:16 03/07/20 22:11 gm/ Premix IV 03/07/20 21:45 100 mls/hr ONETIME ONE Administration Sodium Chloride 2,000 mls @ 2,000 mls/hr 03/07/20 22:54 03/08/20 00:24 Normal Saline IV 03/07/20 23:53 2,000 mls/hr BOLUS ONE Administration Protocol Vancomycin HCl 2,000 gm/ 250 mls @ 167 mls/hr 03/07/20 22:54 03/08/20 00:01 Sodium Chloride IV 03/08/20 00:23 167 mls/hr STAT ONE Administration Iopamidol 100 ml 03/08/20 02:00 03/08/20 02:00 Isovue-370 (76%) IVPUSH 03/08/20 02:01 100 ml ONETIME ONE Administration Labetalol HCl 10 mg 03/08/20 02:23 03/08/20 03:00 Normodyne IVPUSH 03/08/20 02:24 10 mg ONETIME ONE Administration Protocol Metoprolol Tartrate 25 mg 03/08/20 03:33 Lopressor PO 03/08/20 03:34 ONETIME ONE Prochlorperazine Edisylate 10 mg 03/07/20 21:32 03/07/20 22:11 Compazine IVPUSH 03/07/20 21:33 10 mg ONETIME ONE Administration Prochlorperazine Edisylate 10 mg 03/08/20 01:23 03/08/20 01:29 Compazine IVPUSH 03/08/20 01:24 10 mg ONETIME ONE Administration Departure - Departure Time of Disposition: 00:00 Disposition: Refer to Observation Clinical Impression: Sepsis - Discharge Information *PRESCRIPTION DRUG MONITORING PROGRAM REVIEWED*: Not Applicable *COPY OF PRESCRIPTION DRUG MONITORING REPORT IN PATIENT ALMA ROSA: Not Applicable Sepsis Event Note (ED) - Evaluation Sepsis Screening Result: No Definite Risk Current Stage of Sepsis: Severe Sepsis Possible Source of Sepsis: Genitourinary - Focused Exam Sepsis Event Note Statement: Focused Sepsis Exam Completed Vital Signs: Vital Signs Temp Pulse Resp BP Pulse Ox 03/08/20 00:04 96.9 F 03/07/20 23:40 61 18 184/88 H 95 03/07/20 21:10 88 20 164/97 H 96 03/07/20 20:17 96.2 F L 72 18 192/93 H 98 Respiratory Effort Without Exertion: Other (see below) (normal) Heart Sounds: Distant (but normal) Capillary Refill, Detail: Less than/Equal to (</=) 2 Seconds Pulse Description: 2+ Normal Skin Exam (Focused Sepsis): Normal Turgor Date Exam was Performed: 03/08/20 (now) Time Exam was Performed: 00:37 - Bedside Monitoring Bedside Ultrasound Performed: No Date Bedside Monitoring was Performed: 03/08/20 Time Bedside Monitoring was Performed: 03:56 - My Orders Last 24 Hours: My Active Orders 03/07/20 21:16 Sodium Chloride 0.9% [Saline Flush] 10 ml FLUSH ASDIRECTED PRN Sodium Chloride 0.9% [Saline Flush] 2.5 ml FLUSH ASDIRECTED PRN 03/07/20 21:17 Pulse Oximetry [RC] ASDIRECTED Saline Lock Insert [OM.PC] Stat 03/07/20 21:18 Blood Culture x2 Reflex Set [OM.PC] Stat 03/07/20 22:36 CULTURE BLOOD [BC] Stat 03/07/20 22:45 CULTURE BLOOD [BC] Stat 03/07/20 22:54 Sodium Chloride 0.9% [Saline Flush] 10 ml FLUSH ASDIRECTED PRN Sodium Chloride 0.9% [Saline Flush] 2.5 ml FLUSH ASDIRECTED PRN Saline Lock Insert [OM.PC] Stat Severe Sepsis Onset Time [OM.PC] Stat 03/07/20 22:55 Blood Pressure Mgt: Sepsis [RC] Q15MX2 - Assessment/Plan Last 24 Hours: My Active Orders 03/07/20 21:16 Sodium Chloride 0.9% [Saline Flush] 10 ml FLUSH ASDIRECTED PRN Sodium Chloride 0.9% [Saline Flush] 2.5 ml FLUSH ASDIRECTED PRN 03/07/20 21:17 Pulse Oximetry [RC] ASDIRECTED Saline Lock Insert [OM.PC] Stat 03/07/20 21:18 Blood Culture x2 Reflex Set [OM.PC] Stat 03/07/20 22:36 CULTURE BLOOD [BC] Stat 03/07/20 22:45 CULTURE BLOOD [BC] Stat 03/07/20 22:54 Sodium Chloride 0.9% [Saline Flush] 10 ml FLUSH ASDIRECTED PRN Sodium Chloride 0.9% [Saline Flush] 2.5 ml FLUSH ASDIRECTED PRN Saline Lock Insert [OM.PC] Stat Severe Sepsis Onset Time [OM.PC] Stat 03/07/20 22:55 Blood Pressure Mgt: Sepsis [RC] Q15MX2
[2020-03-07] MEDS ORDERED: Prochlorperazine 10 MG/2 ML SDV IVPUSH ONE (21:32)
[2020-03-07 21:48] LABS: BLOOD UREA NITROGEN,BUN 14 mg/dL (7.0-18.0); CARBON DIOXIDE,CO2 22.8 mmol/L (21.0-32.0); CHLORIDE,CL 102 mmol/L (98-107); GLUCOSE RANDOM 158 mg/dL (74-106); POTASSIUM,K 3.2 mmol/L (3.5-5.1); SODIUM,NA 138 mmol/L (136-145)
--- NOTE | 2020-03-07 22:22 | CT ---
Indication: Altered mental status Technique: Nonenhanced axial CT imaging through the head. Sagittal and coronal reconstructions are provided. Comparison: None Findings: There is no intracranial hemorrhage, edema, or mass effect. Sanders-white matter differentiation is preserved. There is moderate cerebral volume loss with compensatory enlargement of the ventricles and cerebral sulci. The basal cisterns are patent. The calvarium is intact. The visualized paranasal sinuses and mastoid air cells are aerated. Impression: No acute intracranial process. Moderate cerebral atrophy with ventriculomegaly. Please note that all CT scans at this facility use dose modulation, iterative reconstruction, and/or weight-based dosing when appropriate to reduce radiation dose to as low as reasonably achievable. Dictated by Julia Brito MD @ Mar 07 2020 10:21PM Signed by Dr. Julia Brito @ Mar 07 2020 10:21PM
--- NOTE | 2020-03-07 22:39 | CR ---
INDICATION: Transient alteration of awareness, confusion, concern for pneumonia TECHNIQUE: Chest radiograph 1 view COMPARISON: 02/22/2020 FINDINGS: Moderate degradation of image quality noted due to body habitus. Mediastinum: The mediastinum is normal in appearance. The heart silhouette is normal in size and morphology. A left cardiac pacer is present with leads in the right atrium and right ventricle. Lung: Both lungs are unremarkable in appearance with small lung volumes. No sign of pleural effusion seen. No pneumothorax is identified. Bone and Soft tissue: Unremarkable for age. IMPRESSION: 1. No acute cardiopulmonary disease is seen. Dictated by: Cristian Powell MD @ 03/07/2020 22:38:34 (Electronically Signed)
[2020-03-07] MEDS ORDERED: Sodium Chloride 0.9% 2,000 ML IV ONE (22:54)
[2020-03-07] MEDS ORDERED: VANCOMYCIN IV ONE (22:54)
[2020-03-07] MEDS ORDERED: Vancomycin/Water for INJ (PEG) 2 GM in Premix Bag 1 BAG IV ONE (22:54)
[2020-03-07] MEDS ORDERED: SODIUM CHLORIDE 0.9% IV ONE (22:54)
[2020-03-08] MEDS ORDERED: Prochlorperazine 10 MG/2 ML SDV IVPUSH ONE (01:23)
[2020-03-08] MEDS ORDERED: Iopamidol 755 Mg/ML 100 ML Bottle IVPUSH ONE (02:00)
--- NOTE | 2020-03-08 02:14 | CT ---
INDICATION: Sepsis of uncertain etiology. COMPARISON: CT of the chest from 11/04/2014 TECHNIQUE: : CT examination of the chest was performed with the uneventful intravenous administration of 100 cc of Isovue 370 while 3 mm thick axial sections were obtained from above the apices of the lungs to the lung bases. Please note that all CT scans at this facility use dose modulation, iterative reconstruction, and/or weight-based dosing when appropriate to reduce radiation dose to as low as reasonably achievable. FINDINGS: : There is stable mild prominence of ground-glass interstitial markings throughout the lungs with a uniform distribution, a nonspecific diffuse pulmonary fibrosis. The lungs are otherwise clear with no sign of significant infiltrate or mass. There is satisfactory in hands meant of the pulmonary arteries, with mild respiratory motion in the lower lobes prevented evaluation of the segmental arteries of the lower lobes. There is no sign of mediastinal or hilar mass or adenopathy. Again seen is a left sided pacemaker with leads entering the left subclavian vein and terminating in the right atrium and right ventricle. The heart is otherwise normal in appearance for the patient`s age, as are the aorta and other ascending great vessels. There is no sign of supraclavicular or axillary mass or adenopathy. The previously seen 1 centimeter left thyroid nodule is no longer evident. The visualized superior liver, spleen, pancreas, and kidneys are normal in appearance. Again seen is minimal nodularity of the right adrenal gland and low-density nodularity of the left adrenal gland, consistent with adrenal adenomas. There is a new small hiatal hernia. Again seen are surgical clips in the gastric fundus consistent with gastric bypass surgery. A small bowel anastomosis is again seen in the left upper quadrant, with no sign of stricture. Clips are again seen in the gall bladder fossa from cholecystectomy. The osseous structures are normal in appearance for the patient`s age. IMPRESSION: No sign of inflammatory process in the chest to explain the patient`s sepsis. Stable mild diffuse ground-glass pulmonary fibrosis. New small hiatal hernia. Please note that all CT scans at this facility use dose modulation, iterative reconstruction, and/or weight-based dosing when appropriate to reduce radiation dose to as low as reasonably achievable. Dictated by Mauricio Webster MD @ Mar 08 2020 2:00AM Signed by Dr. Mauricio Webster @ Mar 08 2020 2:12AM
[2020-03-08] MEDS ORDERED: Labetalol 100 MG/20 ML MDV IVPUSH ONE (02:23)
--- NOTE | 2020-03-08 02:25 | CT ---
INDICATION: Sepsis of unclear etiology. COMPARISON: CT of the chest from today and from 11/04/2014 TECHNIQUE: CT examination of the abdomen and pelvis was performed with the uneventful intravenous administration of Isovue 370 as part of the company CT of the chest. While 3 mm thick axial sections were obtained from the lung bases through the pubic symphysis. Oral contrast was not administered. Please note that all CT scans at this facility use dose modulation, iterative reconstruction, and/or weight-based dosing when appropriate to reduce radiation dose to as low as reasonably achievable. FINDINGS: There is a right paramedian midline incision extending from the subxiphoid region through the right lower quadrant. In the abdomen, the liver, spleen, and pancreas are normal in appearance. Again seen is mild nodular fullness of the left adrenal gland with low density, as well as minimal nodular fullness of the right adrenal gland, findings of adrenal adenomas, but nonspecific. There is a 2.1 centimeter cyst arising from the lower pole of the right kidney. A few other tiny cysts are seen elsewhere in both kidneys. The kidneys are otherwise normal in appearance. Clips are again seen in the gall bladder fossa from cholecystectomy. There is no sign of biliary ductal dilatation. The abdominal aorta is normal in caliber with no sign of dilatation. There is no sign of retroperitoneal mass or adenopathy. There is a new small hiatal hernia. Again seen are several lines of surgical katerina in the gastric fundus, consistent with gastric bypass surgery. A small bowel anastomosis is again seen in the left upper quadrant, with no sign of stricture. The distal stomach, the rest of the loops of small bowel, and right: In the abdomen are normal in appearance. Again seen is mild diverticulosis of the colon of the splenic flexure. There is moderate diverticulosis of the descending colon. There is no sign of diverticulitis. In the pelvis, the appendix is nonvisualized, but there is no sign of an inflammatory process in the area of the appendix. There is prominent proximal sigmoid diverticulosis without evidence of diverticulitis. The loops of small bowel and colon in the pelvis are otherwise normal in appearance. The uterus is absent and the adnexal regions are normal in appearance. The urinary bladder is normal in appearance. There is no sign of pelvic or inguinal mass or adenopathy. There is no sign of free air or free fluid in the abdomen or pelvis. As seen on the accompanying CT of the chest, there is stable mild diffuse ground-glass pulmonary fibrosis. The components of a right total hip prosthesis are in anatomic alignment with no sign of fracture, loosening, or dislocation. There is no sign of fracture of the pauma osseous structures. There is a moderate L2 compression fracture of uncertain age, with moderate depression of the superior and inferior endplates. There is overall no loss of vertebral body height. There is moderate L5-S1 disc degenerative disease. There is no sign of additional lumbar disc degenerative disease. The left hip shows no sign of osteoarthritis. IMPRESSION: No evidence of deep-seated infection in the abdomen or pelvis to correlate with the history of sepsis. CT of the abdomen shows stable changes of gastric bypass surgery. New small hiatal hernia. Again seen are changes of cholecystectomy with no sign of biliary ductal dilatation. Continued mild nodular fullness of the left adrenal gland and minimal nodular fullness of the right adrenal gland consistent with small adrenal adenomas. Moderate diverticulosis of the descending colon and mild diverticulosis of the colon in the splenic flexure with no sign of diverticulitis. CT of the pelvis shows prominent proximal sigmoid diverticulosis with no sign of diverticulitis. Status post hysterectomy. Please note that all CT scans at this facility use dose modulation, iterative reconstruction, and/or weight-based dosing when appropriate to reduce radiation dose to as low as reasonably achievable. Dictated by Mauricio Webster MD @ Mar 08 2020 2:13AM (Electronically Signed)
[2020-03-08] MEDS ORDERED: Acetaminophen 325 MG Tab PO PRN (02:28)
[2020-03-08] MEDS: Ondansetron 4 MG/2 ML SDV IVPUSH PRN ×2 (03:00→06:15)
[2020-03-08] MEDS ORDERED: Aspirin 325 MG Tab PO ONE (03:33)
[2020-03-08] MEDS ORDERED: Metoprolol Tartrate 25 MG Tab PO ONE (03:33)
[2020-03-08] MEDS: Pantoprazole 40 MG in Sodium Chloride 0.9% 10 ML IV SCH (03:54)
--- NOTE | 2020-03-08 05:43 | PCM.SN.2 ---
- Free Text/Narrative Note: Blood pressure improving with labetolol, will continue to monitor. Treating with empiric antibiotics until sepsis ruled out. Her mentation has improved with Ativan.
[2020-03-08 07:41] LABS: CARBON DIOXIDE,CO2 21.3 mmol/L (21.0-32.0); POTASSIUM,K 3.2 mmol/L (3.5-5.1)
[2020-03-08] MEDS ORDERED: Diltiazem 120 MG Cap.CD PO STA (08:47)
--- NOTE | 2020-03-08 09:05 | PCM.HP.2 ---
H&P History of Present Illness - General Date of Service: 03/08/20 Admit Problem/Dx: Admission Diagnosis/Problem Admission Diagnosis/Problem Confusion Source of Information: EMS, Old Records History Limitations: Reports: Altered Mental Status - History of Present Illness Initial Comments - Free Text/Narative: This 69-year-old female with PMH of CVA, multiple TIAs, HLD, HTN, A. 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 This morning patient was unable to provide any information as to what had happened. I was able to speak with both her son Richard and family friend Eileen who were able to fill in some blanks. They report that Friday she started becoming very confused having nausea vomiting and incontinence of stool and urine. They are unsure if she has been taking her medications. Reporting some falls at home. She has not been eating or drinking much at home either since Friday. She was previously admitted for COPD exacerbation and somnolence due to overmedication with Ativan and hydrocodone. She was discharged home on 02/23 with a azithromycin and prednisone. At that time we also discussed the dangers nature of Ativan and hydrocodone and that she should see PCP regarding weaning of these medications. In the ER leukocytosis of 19,000 was noted she had extensive work-up for sepsis. Chest x-ray negative showing only some ground glass opacities consistent with previous x-rays and pulmonary fibrosis. Head CT was normal abdominal CT normal no signs of deep-seated infection. UA negative for UTI. Tox screen showed positive for benzodiazepines. Troponin elevated 0.078. EKG obtained showing prolonged QTC atrial paced no signs of ST depression or elevation. Blood pressure was noted to be 200-220 SBP. She was given labetalol which improved blood pressure down to the 140s to 160s SBP. She continued to be confused and very tremulous. She was admitted for confusion and possible sepsis. This morning she continued to be very tremulous and confused but was able to state she had not taken any medications in a few days. Concern was for possible benzodiazepine withdrawal. No focal neurologic deficits were noted. I did speak with Dr. Chavez, Neurology due to her high risk of stroke due to A. fib and known right and left carotid stenosis. Dr. Chavez will come and evaluate patient. Regarding troponin. I spoke with Dr Ramos, Cardiology in [place]. He suspects likely troponin leak due to hypertensive urgency, which then improved with control of HTN. He recommends continuing to improve BP and have her follow up with Cardiology in 1 month. If she were to have typical angina pain or CHF type symptoms then he would consider transfer for further cardiology management. Epigastric Pain Score (Numeric/FACES): 6 - Related Data Allergies/Adverse Reactions: Allergies Allergy/AdvReac Type Severity Reaction Status Date / Time codeine Allergy Intermediate Airway Verified 02/01/20 19:34 Tightness meperidine HCl [From Demerol] Allergy Intermediate Airway Verified 02/01/20 19:34 Tightness morphine Allergy Intermediate Airway Verified 02/01/20 19:34 Tightness oxycodone [Oxycodone] Allergy Intermediate Airway Verified 02/01/20 19:34 Tightness lidocaine Allergy Anaphylactic Verified 02/01/20 19:34 Shock orphenadrine Allergy Airway Verified 02/01/20 19:34 Tightness varenicline tartrate Allergy Airway Verified 02/01/20 19:34 [From Chantix] Tightness Home Medications: Home Meds DULoxetine HCl [Duloxetine HCl] 120 mg PO DAILY 12/22/13 [History] Apixaban [Eliquis] 5 mg PO BID 08/14/15 [History] Esomeprazole [NexIUM] 40 mg PO DAILY 08/21/17 [History] Olmesartan Medoxomil 40 mg PO DAILY 09/07/19 [History] Albuterol/Ipratropium [Combivent Respimat] 1 inhalation PO QID PRN 02/02/20 [Hi story] Cyclobenzaprine [Flexeril] 5 mg PO QID PRN 02/02/20 [History] Escitalopram [Lexapro] 10 mg PO DAILY 02/02/20 [History] Furosemide 20 mg PO DAILY 02/02/20 [History] Gabapentin [Neurontin] 600 mg PO TID 02/02/20 [History] Levalbuterol Tartrate [Xopenex HFA] 2 inhalation PO Q4H PRN 02/02/20 [History] Diclofenac Sodium 1 applic TOP QID PRN 02/23/20 [History] dilTIAZem HCL [Diltiazem 24Hr ER] 240 mg PO DAILY 02/23/20 [History] hydrOXYzine pamoate [Hydroxyzine Pamoate] 25 mg PO TID PRN 02/23/20 [History] traMADol [Ultram] 100 mg PO BID PRN 02/23/20 [History] Azithromycin 500 mg PO DAILY #4 tablet 02/24/20 [Rx] predniSONE [Prednisone] 40 mg PO DAILY #8 tablet 02/24/20 [Rx] Past Medical History HEENT History: Reports: Allergic Rhinitis, Impaired Vision, Other (See Below) Other HEENT History: wears reading glasses Cardiovascular History: Reports: Afib, High Cholesterol, Hypertension Respiratory History: Reports: Bronchitis, Recurrent, COPD, SOB, Other (See Below) Other Respiratory History: was tested for sleep apnea last week, no results yet Gastrointestinal History: Reports: Cholelithiasis, GERD Genitourinary History: Reports: None [employer] History: Reports: None Musculoskeletal History: Reports: Arthritis, Fracture, Osteoporosis Other Musculoskeletal History: states chronic back and right hip pain, hx of fx right wrist and right tib-fib, wheelchair bound due to hip pain and major SOB Neurological History: Reports: TIA Other Neuro History: has has TIA x2, 2009 and 2013. No residual weakness, no intervention done except physical therapy Psychiatric History: Reports: Bipolar, Depression Endocrine/Metabolic History: Reports: Obesity/BMI 30+, Other (See Below) Other Endocrine/Metabolic History: states has 2 "lumps" on thyroid as noted on ultrasound Insulin Pump Model and Awning Erector: None Hematologic History: Reports: None Immunologic History: Reports: None Oncologic (Cancer) History: Reports: None Dermatologic History: Reports: None - Infectious Disease History Infectious Disease History: Reports: Measles - Past Surgical History Head Surgeries/Procedures: Reports: None HEENT Surgical History: Reports: Cataract Surgery GI Surgical History: Reports: Bariatric Procedure, Cholecystectomy Female Surgical History: Reports: None Neurological Surgical History: Reports: None Musculoskeletal Surgical History: Reports: Hip Replacement, Knee Replacement, ORIF Social & Family History - Family History Family Medical History: Noncontributory HEENT: Reports: Other (See Below) - Tobacco Use Tobacco Use Status *Q: Never Tobacco User Second Hand Smoke Exposure: No - Caffeine Use Caffeine Use: Reports: Coffee Caffeine Use Comment: Unable to obtain. Pt is falling in and out of sleep, and is groggy. - Recreational Drug Use Recreational Drug Use: No H&P Review of Systems - Review of Systems: Review Of Systems: See Below Free Text/Narrative: initially was very confused. Now alert and oriented. General: Reports: Weakness (generalized). Denies: Fever, Chills, Malaise HEENT: Reports: No Symptoms. Denies: Contact Lenses, Headaches, Sinus Congestion, Vertigo Pulmonary: Reports: Shortness of Breath (intermittently, but this is at baseline), Cough. Denies: Sputum Cardiovascular: Denies: Chest Pain, Orthopnea, Lightheadedness, Syncope Gastrointestinal: Reports: No Symptoms. Denies: Abdominal Pain, Black Stool, Bloody Stool, Nausea, Vomiting Genitourinary: Reports: No Symptoms. Denies: Dysuria, Frequency, Burning Musculoskeletal: Reports: No Symptoms Skin: Reports: No Symptoms Psychiatric: Reports: No Symptoms Neurological: Reports: Tremors. Denies: Confusion Hematologic/Lymphatic: Reports: No Symptoms Immunologic: Reports: No Symptoms Exam - Exam Exam: See Below - Vital Signs Vital Signs: Last Vital Signs Temp 97.4 F 03/08/20 08:08 Pulse 84 03/08/20 08:08 Resp 20 03/08/20 08:08 BP 165/105 H 03/08/20 08:08 Pulse Ox 93 L 03/08/20 08:08 Weight: 82.5 kg - Exam Quality Assessment: Supplemental Oxygen, DVT Prophylaxis General: Alert, Oriented, Cooperative HEENT: Conjunctiva Clear, Mucosa Moist & Royer Lungs: Clear to Auscultation, Normal Respiratory Effort Cardiovascular: Regular Rate, Regular Rhythm, Normal S1, Normal S2 GI/Abdominal Exam: Normal Bowel Sounds, Soft, Non-Tender Back Exam: Normal Inspection, Full Range of Motion Extremities: Normal Inspection, Normal Range of Motion, Non-Tender, No Pedal Edema Neurological: Reflexes Equal Bilateral, Strength Equal Bilateral Neuro Extensive - Mental Status: Alert, Oriented x3 Neuro Extensive - Motor, Sensory, Reflexes: CN II-XII Intact Psychiatric: Alert, Normal Affect, Normal Mood, Withdrawal Symptoms (tremors) - Patient Data Lab Results Last 24 hrs: Laboratory Results - last 24 hr 03/07/20 03/07/20 03/07/20 Range/Units 20:20 20:20 20:20 WBC 19.68 H (4.0-11.0) K/uL RBC 4.65 (4.30-5.90) M/uL Hgb 14.4 (12.0-16.0) g/dL Hct 42.6 (36.0-46.0) % MCV 91.6 (80.0-98.0) fL MCH 31.0 (27.0-32.0) pg MCHC 33.8 (31.0-37.0) g/dL RDW Std Deviation 46.1 (28.0-62.0) fl RDW Coeff of Brittny 14 (11.0-15.0) % Plt Count 275 (150-400) K/uL MPV 11.80 (7.40-12.00) fL Neut % (Auto) 91.2 H (48.0-80.0) % Lymph % (Auto) 6.4 L (16.0-40.0) % [place] % (Auto) 2.3 (0.0-15.0) % Eos % (Auto) 0.0 (0.0-7.0) % Baso % (Auto) 0.1 (0.0-1.5) % Neut # (Auto) 18.0 H (1.4-5.7) K/uL Lymph # (Auto) 1.3 (0.6-2.4) K/uL [place] # (Auto) 0.5 (0.0-0.8) K/uL Eos # (Auto) 0.0 (0.0-0.7) K/uL Baso # (Auto) 0.0 (0.0-0.1) K/uL Nucleated RBC % 0.0 /100WBC Nucleated RBCs # 0 K/uL INR 1.09 APTT (18.6-31.3) SEC Lactate 1.3 (0.20-2.00) mmol/L Sodium (136-145) mmol/L Potassium (3.5-5.1) mmol/L Chloride (98-107) mmol/L Carbon Dioxide (21.0-32.0) mmol/L BUN (7.0-18.0) mg/dL Creatinine (0.6-1.0) mg/dL Est Cr Clr Drug Dosing Estimated GFR (MDRD) ml/min Glucose (74-106) mg/dL Calcium (8.5-10.1) mg/dL Magnesium (1.8-2.4) mg/dL Total Bilirubin (0.2-1.0) mg/dL AST (15-37) IU/L ALT (14-63) IU/L Alkaline Phosphatase (46-116) U/L Troponin I (0.000-0.056) ng/mL Total Protein (6.4-8.2) g/dL Albumin (3.4-5.0) g/dL Globulin (2.6-4.0) g/dL Albumin/Globulin Ratio (0.9-1.6) Urine Color Urine Appearance Urine pH (5.0-8.0) Ur Specific Elizabeth (1.001-1.035) Urine Protein (NEGATIVE) mg/dL Urine Glucose (UA) (NEGATIVE) mg/dL Urine Ketones (NEGATIVE) mg/dL Urine Occult Blood (NEGATIVE) Urine Nitrite (NEGATIVE) Urine Bilirubin (NEGATIVE) Urine Ictotest Urine Urobilinogen (<2.0) EU/dL Ur Leukocyte Esterase (NEGATIVE) Urine RBC (0-2/HPF) Urine WBC (0-5/HPF) Ur Epithelial Cells (NONE-FEW) Urine Bacteria (NEGATIVE) Urine Mucus (NONE-MOD) Urine Opiates Screen (NEGATIVE) Ur Oxycodone Screen (NEGATIVE) Urine Methadone Screen (NEGATIVE) Ur Barbiturates Screen (NEGATIVE) Ur Phencyclidine Scrn (NEGATIVE) Ur Amphetamine Screen (NEGATIVE) U Methamphetamines Scrn (NEGATIVE) U Benzodiazepines Scrn (NEGATIVE) U Cocaine Metab Screen (NEGATIVE) U Marijuana (THC) Screen (NEGATIVE) Ethyl Alcohol mg/dL SARS-CoV-2 RNA (KEI) (NEGATIVE) 03/07/20 03/07/20 03/07/20 Range/Units 20:20 20:20 22:47 WBC (4.0-11.0) K/uL RBC (4.30-5.90) M/uL Hgb (12.0-16.0) g/dL Hct (36.0-46.0) % MCV (80.0-98.0) fL MCH (27.0-32.0) pg MCHC (31.0-37.0) g/dL RDW Std Deviation (28.0-62.0) fl RDW Coeff of Brittny (11.0-15.0) % Plt Count (150-400) K/uL MPV (7.40-12.00) fL Neut % (Auto) (48.0-80.0) % Lymph % (Auto) (16.0-40.0) % [place] % (Auto) (0.0-15.0) % Eos % (Auto) (0.0-7.0) % Baso % (Auto) (0.0-1.5) % Neut # (Auto) (1.4-5.7) K/uL Lymph # (Auto) (0.6-2.4) K/uL Sublette # (Auto) (0.0-0.8) K/uL Eos # (Auto) (0.0-0.7) K/uL Baso # (Auto) (0.0-0.1) K/uL Nucleated RBC % /100WBC Nucleated RBCs # K/uL INR APTT 25.1 (18.6-31.3) SEC Lactate (0.20-2.00) mmol/L Sodium 138 (136-145) mmol/L Potassium 3.2 L (3.5-5.1) mmol/L Chloride 102 (98-107) mmol/L Carbon Dioxide 22.8 (21.0-32.0) mmol/L BUN 14 (7.0-18.0) mg/dL Creatinine 0.9 (0.6-1.0) mg/dL Est Cr Clr Drug Dosing TNP Estimated GFR (MDRD) > 60.0 ml/min Glucose 158 H (74-106) mg/dL Calcium 8.9 (8.5-10.1) mg/dL Magnesium 2.0 (1.8-2.4) mg/dL Total Bilirubin 0.8 (0.2-1.0) mg/dL AST 32 (15-37) IU/L ALT 31 (14-63) IU/L Alkaline Phosphatase 153 H (46-116) U/L Troponin I 0.082 H* (0.000-0.056) ng/mL Total Protein 7.6 (6.4-8.2) g/dL Albumin 3.8 (3.4-5.0) g/dL Globulin 3.8 (2.6-4.0) g/dL Albumin/Globulin Ratio 1.0 (0.9-1.6) Urine Color Urine Appearance Urine pH (5.0-8.0) Ur Specific Elizabeth (1.001-1.035) Urine Protein (NEGATIVE) mg/dL Urine Glucose (UA) (NEGATIVE) mg/dL Urine Ketones (NEGATIVE) mg/dL Urine Occult Blood (NEGATIVE) Urine Nitrite (NEGATIVE) Urine Bilirubin (NEGATIVE) Urine Ictotest Urine Urobilinogen (<2.0) EU/dL Ur Leukocyte Esterase (NEGATIVE) Urine RBC (0-2/HPF) Urine WBC (0-5/HPF) Ur Epithelial Cells (NONE-FEW) Urine Bacteria (NEGATIVE) Urine Mucus (NONE-MOD) Urine Opiates Screen (NEGATIVE) Ur Oxycodone Screen (NEGATIVE) Urine Methadone Screen (NEGATIVE) Ur Barbiturates Screen (NEGATIVE) Ur Phencyclidine Scrn (NEGATIVE) Ur Amphetamine Screen (NEGATIVE) U Methamphetamines Scrn (NEGATIVE) U Benzodiazepines Scrn (NEGATIVE) U Cocaine Metab Screen (NEGATIVE) U Marijuana (THC) Screen (NEGATIVE) Ethyl Alcohol <3 mg/dL SARS-CoV-2 RNA (KEI) NEGATIVE (NEGATIVE) 03/08/20 03/08/20 03/08/20 Range/Units 00:10 00:10 02:46 WBC (4.0-11.0) K/uL RBC (4.30-5.90) M/uL Hgb (12.0-16.0) g/dL Hct (36.0-46.0) % MCV (80.0-98.0) fL MCH (27.0-32.0) pg MCHC (31.0-37.0) g/dL RDW Std Deviation (28.0-62.0) fl RDW Coeff of Brittny (11.0-15.0) % Plt Count (150-400) K/uL MPV (7.40-12.00) fL Neut % (Auto) (48.0-80.0) % Lymph % (Auto) (16.0-40.0) % [place] % (Auto) (0.0-15.0) % Eos % (Auto) (0.0-7.0) % Baso % (Auto) (0.0-1.5) % Neut # (Auto) (1.4-5.7) K/uL Lymph # (Auto) (0.6-2.4) K/uL [place] # (Auto) (0.0-0.8) K/uL Eos # (Auto) (0.0-0.7) K/uL Baso # (Auto) (0.0-0.1) K/uL Nucleated RBC % /100WBC Nucleated RBCs # K/uL INR APTT (18.6-31.3) SEC Lactate (0.20-2.00) mmol/L Sodium (136-145) mmol/L Potassium (3.5-5.1) mmol/L Chloride (98-107) mmol/L Carbon Dioxide (21.0-32.0) mmol/L BUN (7.0-18.0) mg/dL Creatinine (0.6-1.0) mg/dL Est Cr Clr Drug Dosing Estimated GFR (MDRD) ml/min Glucose (74-106) mg/dL Calcium (8.5-10.1) mg/dL Magnesium (1.8-2.4) mg/dL Total Bilirubin (0.2-1.0) mg/dL AST (15-37) IU/L ALT (14-63) IU/L Alkaline Phosphatase (46-116) U/L Troponin I 0.117 H* (0.000-0.056) ng/mL Total Protein (6.4-8.2) g/dL Albumin (3.4-5.0) g/dL Globulin (2.6-4.0) g/dL Albumin/Globulin Ratio (0.9-1.6) Urine Color YELLOW Urine Appearance CLEAR Urine pH 5.5 (5.0-8.0) Ur Specific Elizabeth >= 1.030 (1.001-1.035) Urine Protein TRACE H (NEGATIVE) mg/dL Urine Glucose (UA) NEGATIVE (NEGATIVE) mg/dL Urine Ketones >=80 (NEGATIVE) mg/dL Urine Occult Blood NEGATIVE (NEGATIVE) Urine Nitrite NEGATIVE (NEGATIVE) Urine Bilirubin SMALL H (NEGATIVE) Urine Ictotest NEGATIVE Urine Urobilinogen 0.2 (<2.0) EU/dL Ur Leukocyte Esterase NEGATIVE (NEGATIVE) Urine RBC 0-2 (0-2/HPF) Urine WBC 0-2 (0-5/HPF) Ur Epithelial Cells OCCASIONAL (NONE-FEW) Urine Bacteria FEW (NEGATIVE) Urine Mucus LIGHT (NONE-MOD) Urine Opiates Screen NEGATIVE (NEGATIVE) Ur Oxycodone Screen NEGATIVE (NEGATIVE) Urine Methadone Screen NEGATIVE (NEGATIVE) Ur Barbiturates Screen NEGATIVE (NEGATIVE) Ur Phencyclidine Scrn NEGATIVE (NEGATIVE) Ur Amphetamine Screen NEGATIVE (NEGATIVE) U Methamphetamines Scrn NEGATIVE (NEGATIVE) U Benzodiazepines Scrn POSITIVE (NEGATIVE) U Cocaine Metab Screen NEGATIVE (NEGATIVE) U Marijuana (THC) Screen NEGATIVE (NEGATIVE) Ethyl Alcohol mg/dL SARS-CoV-2 RNA (KEI) (NEGATIVE) 03/08/20 03/08/20 Range/Units 06:26 06:26 WBC 18.01 H (4.0-11.0) K/uL RBC 4.41 (4.30-5.90) M/uL Hgb 13.3 (12.0-16.0) g/dL Hct 40.4 (36.0-46.0) % MCV 91.6 (80.0-98.0) fL MCH 30.2 (27.0-32.0) pg MCHC 32.9 (31.0-37.0) g/dL RDW Std Deviation 46.4 (28.0-62.0) fl RDW Coeff of Brittny 14 (11.0-15.0) % Plt Count 264 (150-400) K/uL MPV 12.00 (7.40-12.00) fL Neut % (Auto) 89.4 H (48.0-80.0) % Lymph % (Auto) 7.7 L (16.0-40.0) % [place] % (Auto) 2.8 (0.0-15.0) % Eos % (Auto) 0.0 (0.0-7.0) % Baso % (Auto) 0.1 (0.0-1.5) % Neut # (Auto) 16.1 H (1.4-5.7) K/uL Lymph # (Auto) 1.4 (0.6-2.4) K/uL [place] # (Auto) 0.5 (0.0-0.8) K/uL Eos # (Auto) 0.0 (0.0-0.7) K/uL Baso # (Auto) 0.0 (0.0-0.1) K/uL Nucleated RBC % 0.0 /100WBC Nucleated RBCs # 0 K/uL INR APTT (18.6-31.3) SEC Lactate (0.20-2.00) mmol/L Sodium 143 (136-145) mmol/L Potassium 3.2 L (3.5-5.1) mmol/L Chloride 106 (98-107) mmol/L Carbon Dioxide 21.3 (21.0-32.0) mmol/L BUN 16 (7.0-18.0) mg/dL Creatinine 1.0 (0.6-1.0) mg/dL Est Cr Clr Drug Dosing 48.45 Estimated GFR (MDRD) 55.1 ml/min Glucose 164 H (74-106) mg/dL Calcium 8.9 (8.5-10.1) mg/dL Magnesium (1.8-2.4) mg/dL Total Bilirubin 0.5 (0.2-1.0) mg/dL AST 26 (15-37) IU/L ALT 29 (14-63) IU/L Alkaline Phosphatase 138 H (46-116) U/L Troponin I (0.000-0.056) ng/mL Total Protein 7.1 (6.4-8.2) g/dL Albumin 3.5 (3.4-5.0) g/dL Globulin 3.6 (2.6-4.0) g/dL Albumin/Globulin Ratio 1.0 (0.9-1.6) Urine Color Urine Appearance Urine pH (5.0-8.0) Ur Specific Elizabeth (1.001-1.035) Urine Protein (NEGATIVE) mg/dL Urine Glucose (UA) (NEGATIVE) mg/dL Urine Ketones (NEGATIVE) mg/dL Urine Occult Blood (NEGATIVE) Urine Nitrite (NEGATIVE) Urine Bilirubin (NEGATIVE) Urine Ictotest Urine Urobilinogen (<2.0) EU/dL Ur Leukocyte Esterase (NEGATIVE) Urine RBC (0-2/HPF) Urine WBC (0-5/HPF) Ur Epithelial Cells (NONE-FEW) Urine Bacteria (NEGATIVE) Urine Mucus (NONE-MOD) Urine Opiates Screen (NEGATIVE) Ur Oxycodone Screen (NEGATIVE) Urine Methadone Screen (NEGATIVE) Ur Barbiturates Screen (NEGATIVE) Ur Phencyclidine Scrn (NEGATIVE) Ur Amphetamine Screen (NEGATIVE) U Methamphetamines Scrn (NEGATIVE) U Benzodiazepines Scrn (NEGATIVE) U Cocaine Metab Screen (NEGATIVE) U Marijuana (THC) Screen (NEGATIVE) Ethyl Alcohol mg/dL SARS-CoV-2 RNA (KEI) (NEGATIVE) Result Diagrams: 03/08/20 06:26 03/08/20 06:26 Sepsis Event Note - Evaluation Sepsis Screening Result: No Definite Risk - Focused Exam Vital Signs: Vital Signs Temp Pulse Resp BP BP BP Pulse Ox 03/08/20 08:08 97.4 F 84 20 165/105 H 93 L 03/08/20 04:00 78 18 130/98 H 03/08/20 03:50 130/98 H 03/08/20 03:30 175/82 H 03/08/20 03:07 196/102 H 03/08/20 02:52 95 03/08/20 02:30 205/101 H 03/08/20 02:10 97.8 F 94 18 209/119 H 96 03/08/20 01:30 96.4 F L 90 20 192/101 H 97 03/08/20 00:04 96.9 F 03/07/20 23:40 61 18 184/88 H 95 03/07/20 21:10 88 20 164/97 H 96 - Problem List (1) Hypertensive urgency SNOMED Code(s): 880909004 ICD Code: I16.0 - HYPERTENSIVE URGENCY Status: Acute Current Visit: Yes (2) History of CVA (cerebrovascular accident) SNOMED Code(s): 015708607 ICD Code: Z86.73 - PRSNL HX OF TIA (TIA), AND CEREB INFRC W/O RESID DEFICITS Status: Acute Current Visit: Yes (3) Hx of TIA (transient ischemic attack) and stroke SNOMED Code(s): 712638690, 618162909, 327175047 ICD Code: Z86.73 - PRSNL HX OF TIA (TIA), AND CEREB INFRC W/O RESID DEFICITS Status: Acute Current Visit: Yes (4) H/O tachycardia-bradycardia syndrome SNOMED Code(s): 191957883153600 ICD Code: Z86.79 - PERSONAL HISTORY OF OTHER DISEASES OF THE CIRCULATORY SYSTEM Status: Acute Current Visit: Yes (5) Pacemaker SNOMED Code(s): 397699900 ICD Code: Z95.0 - PRESENCE OF CARDIAC PACEMAKER Status: Acute Current Visit: Yes (6) Benzodiazepine withdrawal SNOMED Code(s): 927567533 ICD Code: F13.239 - SEDATV/HYP/ANXIOLYTC DEPENDENCE W WITHDRAWAL, UNSP Status: Acute Current Visit: Yes (7) Sepsis SNOMED Code(s): 15655468 ICD Code: A41.9 - SEPSIS, UNSPECIFIED ORGANISM Status: Acute Current Visit: Yes (8) Afib SNOMED Code(s): 38039980 ICD Code: I48.91 - UNSPECIFIED ATRIAL FIBRILLATION Status: Chronic Current Visit: No Qualifiers: Atrial fibrillation type: persistent (not longstanding) Qualified Code(s): I48.19 - Other persistent atrial fibrillation; I48.1 - Persistent atrial fibrillation (9) HLD (hyperlipidemia) SNOMED Code(s): 78515060 ICD Code: E78.5 - HYPERLIPIDEMIA, UNSPECIFIED Status: Chronic Current Visit: No (10) HTN (hypertension) SNOMED Code(s): 15765871 ICD Code: I10 - ESSENTIAL (PRIMARY) HYPERTENSION Status: Chronic Current Visit: No (11) Wheelchair bound SNOMED Code(s): 784802202, 034598252 ICD Code: Z99.3 - DEPENDENCE ON WHEELCHAIR Status: Chronic Current Visit: No Problem List Initiated/Reviewed/Updated: Yes Orders Last 24hrs: Active Orders 24 hr Category Date Time Status Patient Status [ADT] Routine ADT 03/08/20 00:42 Active Blood Pressure Mgt: Sepsis [RC] Q15MX2 Care 03/07/20 22:55 Active EKG 12 Lead [EKG Documentation Completion] [RC] ROUTINE Care 03/08/20 06:30 Active Pulse Oximetry [RC] ASDIRECTED Care 03/07/20 21:17 Active Telemetry Monitoring [Cardiac Monitoring] [RC] Q8H Care 03/08/20 01:16 Active Regular Diet [DIET] Diet 03/08/20 Breakfast Active CBC WITH AUTO DIFF [HEME] AM Lab 03/09/20 05:11 Ordered COMPREHENSIVE METABOLIC PN,CMP [CHEM] AM Lab 03/09/20 05:11 Ordered CULTURE BLOOD [BC] Stat Lab 03/07/20 22:36 Received CULTURE BLOOD [BC] Stat Lab 03/07/20 22:45 Received TROPONIN I [CHEM] Q6H Lab 03/08/20 08:42 Received Acetaminophen [TylenoL] Med 03/08/20 02:28 Active 650 mg PO Q6H PRN Diltiazem [Cardizem CD] Med 03/08/20 08:47 Stat 240 mg PO DAILY STA Ondansetron [Zofran] Med 03/08/20 02:28 Active 4 mg IVPUSH Q4H PRN Pantoprazole [ProTONIX IV] 40 mg Med 03/08/20 03:45 Active Sodium Chloride 0.9% [Normal Saline] 10 ml IV Q24H Sodium Chloride 0.9% [Saline Flush] Med 03/07/20 21:16 Active 10 ml FLUSH ASDIRECTED PRN Sodium Chloride 0.9% [Saline Flush] Med 03/07/20 22:54 Active 10 ml FLUSH ASDIRECTED PRN Sodium Chloride 0.9% [Saline Flush] Med 03/07/20 21:16 Active 2.5 ml FLUSH ASDIRECTED PRN Sodium Chloride 0.9% [Saline Flush] Med 03/07/20 22:54 Active 2.5 ml FLUSH ASDIRECTED PRN Blood Culture x2 Reflex Set [OM.PC] Stat Oth 03/07/20 21:18 Ordered Saline Lock Insert [OM.PC] Stat Oth 03/07/20 21:17 Ordered Saline Lock Insert [OM.PC] Stat Oth 03/07/20 22:54 Ordered Severe Sepsis Onset Time [OM.PC] Stat Oth 03/07/20 22:54 Ordered Medication Orders Acetaminophen (Tylenol) 650 mg PO Q6H PRN PRN Reason: Pain Diltiazem HCl (Cardizem Cd) 240 mg PO DAILY STA Stop: 03/08/20 08:48 Pantoprazole Sodium 40 mg/ (Sodium Chloride) 10 mls @ 300 mls/hr IV Q24H JARVIS Last Admin: 03/08/20 03:54 Dose: 300 mls/hr Documented by: ALEX Ondansetron HCl (Zofran) 4 mg IVPUSH Q4H PRN PRN Reason: Nausea/Vomiting Last Admin: 03/08/20 06:15 Dose: 4 mg Documented by: Admin: 03/08/20 03:00 Dose: 4 mg Documented by: ALEX Sodium Chloride (Saline Flush) 2.5 ml FLUSH ASDIRECTED PRN PRN Reason: Keep Vein Open Sodium Chloride (Saline Flush) 10 ml FLUSH ASDIRECTED PRN PRN Reason: Keep Vein Open Sodium Chloride (Saline Flush) 10 ml FLUSH ASDIRECTED PRN PRN Reason: Keep Vein Open Sodium Chloride (Saline Flush) 2.5 ml FLUSH ASDIRECTED PRN PRN Reason: Keep Vein Open Assessment/Plan Comment:: This 69 year old female admitted with confusion, possible sepsis, hypertensive urgency and elevated troponin 1. Hypertensive urgency - Will make Critical Care status - Troponin improved slightly this more - Will restart medications to help with blood pressure management. - Restart Diltiazem, Olmesartan, Lasix - Monitor blood pressure closely 2. Confusion/benzodiazepine withdrawal - Spoke with Dr Chavez, she will come assess patient. - repeat Head CT negative - Gave dose of Ativan 1 mg IV, 30 minutes later patient alert and oriented - reports she has not been taking any of her medications for multiple days because she "forgot" - Will give 1 mg Ativan every 6 hours to management withdrawal, normally takes 3 mg BID. 3. Elevated troponin - Improved - Spoke with Dr Ramos, who feels this is related to hypertensive urgency. - Follow up with Cardiology 1 month, she requests to stay in [place] due to inability to get rides to [place]. 4. Sepsis- suspected - No infectious source noted - Was recently on prednisone, for COPD exacerbation - Will monitor closely. 5. Afib/HLD/Hx CVA - Monitor on monitor technician - Continue Eliquis BID - Continue Atorvastatin 80 mg daily 6. Chronic pain - Monitor - Once Med rec completed, will restart home medications. 7. Pulmonary fibrosis/COPD - Oxygen PRN - No signs of infection VTE prophylaxis: Eliquis Dispo: 2-3 days pending improvement When speaking with son and family member Eileen today there is significant need for help at home. Skinny, the son, has had significant foot surgeries recently and is unable to fully care for his mom. Upon discussion of this with Britt when she was alert, she adamantly refuses long-term or even assisted living placement. She is adamant she will return home and her son will help care for her. - Mortality Measure Prognosis:: Good
[2020-03-08] MEDS ORDERED: LORazepam 2 MG/ML SDV IVPUSH ONE (09:17)
--- NOTE | 2020-03-08 10:20 | CR ---
INDICATION: Hypoxia. COMPARISON: Chest radiograph March 07, 2020; CT chest March 08, 2020. TECHNIQUE: Portable AP chest. FINDINGS: Normal size cardiac silhouette. Cardiac pacer in place. Questionable infiltrates right upper lobe; the CT of the chest from the same date field to reveal any such abnormalities. Multiple healed fractures of the right ribcage. Impression : No acute pathology. 1. Questionable infiltrates right upper lobe; not present on the chest CT from the same date. Dictated by Deejay Myers MD @ Mar 08 2020 10:15AM Signed by Dr. Deejay Myers @ Mar 08 2020 10:18AM
[2020-03-08] MEDS ORDERED: Potassium Chloride 10 MEQ Tab.ER PO ONE (10:38)
--- NOTE | 2020-03-08 10:47 | CT ---
INDICATION: Confusion TECHNIQUE: CT head without contrast. COMPARISON: March 07, 2020 FINDINGS: CSF spaces: Stable borderline ventriculomegaly. Brain parenchyma and extra-axial spaces: The duenas-white differentiation is normal. No sign of mass, hemorrhage, or midline shift. No extra-axial fluid collection. Skull base and calvarium: The visualized paranasal sinuses and mastoid air cells demonstrate no acute or significant findings. The visualized orbits are grossly unremarkable. No skull fractures. IMPRESSION: No acute or specific finding to explain confusion and no change from the prior exam. Please note that all CT scans at this facility use dose modulation, iterative reconstruction, and/or weight-based dosing when appropriate to reduce radiation dose to as low as reasonably achievable. Dictated by Panda Garza MD @ Mar 08 2020 10:40AM Signed by Dr. Panda Garza @ Mar 08 2020 10:47AM
[2020-03-08] MEDS ORDERED: Sodium Chloride 0.9% 2.5 ML Syringe FLUSH PRN (11:47)
[2020-03-08] MEDS: Olmesartan 20 MG Tab PO SCH (12:23)
[2020-03-08] MEDS: Apixaban 5 MG Tab PO SCH ×2 (12:24→20:33)
[2020-03-08] MEDS: Furosemide 20 MG Tab PO SCH (12:25)
--- NOTE | 2020-03-08 12:44 | PCM.CONS ---
H&P History of Present Illness - General Date of Service: 03/08/20 Admit Problem/Dx: Admission Diagnosis/Problem Admission Diagnosis/Problem Confusion - History of Present Illness Initial Comments - Free Text/Narative: 69 year old woman with history of stroke, multiple TIAs, HLD, HTN, a fib, pacemaker, CAD, nonambulatory due to chronic hip pain admitted with AMS. She was brought to ED last night with altered mental status. Details are not clear, but she reportedly ad confusion, n/v, incontinence on the and she had not been taking her medications. Work up in ED revealed elevated troponin 0.82 thought to be related to HTN, and leukocytosis 19.68. SBP 200-220 in ED. She remained confused this morning, but mental status has started to improve. UA negative for UTI. Tox positive for benzodiazepines. EKG showed prolonged QT. CT chest showed ground glass opacities which are chronic and abdomen was unremarkable. CT head 03/07 showed no acute process. CT this morning 10 am showed no acute process. ETOH negative. COVID negative. She endorses headaches for the last 3 months, frontal. Prior history: She was admitted in January with complaints of left arm weakness. She had noted to me that she had had 7 similar episodes previously. CTA was limited by artifact. Carotid US was consistent moderate left carotid stenosis and mild right carotid stenosis. Epigastric Pain Score (Numeric/FACES): 6 - Related Data Allergies/Adverse Reactions: Allergies Allergy/AdvReac Type Severity Reaction Status Date / Time codeine Allergy Intermediate Airway Verified 02/01/20 19:34 Tightness meperidine HCl [From Demerol] Allergy Intermediate Airway Verified 02/01/20 19:34 Tightness morphine Allergy Intermediate Airway Verified 02/01/20 19:34 Tightness oxycodone [Oxycodone] Allergy Intermediate Airway Verified 02/01/20 19:34 Tightness lidocaine Allergy Anaphylactic Verified 02/01/20 19:34 Shock orphenadrine Allergy Airway Verified 02/01/20 19:34 Tightness varenicline tartrate Allergy Airway Verified 02/01/20 19:34 [From Chantix] Tightness Home Medications: Home Meds DULoxetine HCl [Duloxetine HCl] 120 mg PO DAILY 12/22/13 [History] Apixaban [Eliquis] 5 mg PO BID 08/14/15 [History] Esomeprazole [NexIUM] 40 mg PO DAILY 08/21/17 [History] Olmesartan Medoxomil 40 mg PO DAILY 09/07/19 [History] Albuterol/Ipratropium [Combivent Respimat] 1 inhalation PO QID PRN 02/02/20 [History] Cyclobenzaprine [Flexeril] 5 mg PO QID PRN 02/02/20 [History] Escitalopram [Lexapro] 10 mg PO DAILY 02/02/20 [History] Furosemide 20 mg PO DAILY 02/02/20 [History] Gabapentin [Neurontin] 600 mg PO TID 02/02/20 [History] Levalbuterol Tartrate [Xopenex HFA] 2 inhalation PO Q4H PRN 02/02/20 [History] Diclofenac Sodium 1 applic TOP QID PRN 02/23/20 [History] dilTIAZem HCL [Diltiazem 24Hr ER] 240 mg PO DAILY 02/23/20 [History] hydrOXYzine pamoate [Hydroxyzine Pamoate] 25 mg PO TID PRN 02/23/20 [History] traMADol [Ultram] 50 mg PO BID PRN 02/23/20 [History] Collagenase [Santyl Oint] 1 applic TP ASDIRECTED PRN 03/08/20 [History] Fluconazole 150 mg PO Q3D PRN 03/08/20 [History] Hydrocodone/Acetaminophen [Hydrocodone-Acetamin 10-325 mg] 1 tab PO 6XDAY PRN 03/08/20 [History] LORazepam [Ativan] 2 mg PO TID PRN 03/08/20 [History] Past Medical History HEENT History: Reports: Allergic Rhinitis, Impaired Vision, Other (See Below) Other HEENT History: wears reading glasses Cardiovascular History: Reports: Afib, High Cholesterol, Hypertension Respiratory History: Reports: Bronchitis, Recurrent, COPD, SOB, Other (See Below) Other Respiratory History: was tested for sleep apnea last week, no results yet Gastrointestinal History: Reports: Cholelithiasis, GERD Genitourinary History: Reports: None 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 Hematologic History: Reports: None Immunologic History: Reports: None Oncologic (Cancer) History: Reports: None Dermatologic History: Reports: None - Infectious Disease History Infectious Disease History: Reports: Measles - Past Surgical History Head Surgeries/Procedures: Reports: None HEENT Surgical History: Reports: Cataract Surgery GI Surgical History: Reports: Bariatric Procedure, Cholecystectomy Female Surgical History: Reports: None Neurological Surgical History: Reports: None Musculoskeletal Surgical History: Reports: Hip Replacement, Knee Replacement, ORIF Social & Family History - Family History Family Medical History: Noncontributory HEENT: Reports: Other (See Below) - Tobacco Use Tobacco Use Status *Q: Never Tobacco User Second Hand Smoke Exposure: No - Caffeine Use Caffeine Use: Reports: Coffee Caffeine Use Comment: Unable to obtain. Pt is falling in and out of sleep, and is groggy. - Recreational Drug Use Recreational Drug Use: No H&P Review of Systems - Review of Systems: Review Of Systems: Comprehensive ROS is negative, except as noted in HPI. Exam - Exam Exam: See Below - Vital Signs Vital Signs: Last Vital Signs Temp 36.3 C 03/08/20 08:08 Pulse 94 03/08/20 09:14 Resp 20 03/08/20 08:08 BP 174/99 H 03/08/20 12:23 Pulse Ox 93 L 03/08/20 08:08 Weight: 82.5 kg - Exam Physical Exam Comments:: Head: No nuchal rigidity Mental status: Alert and oriented to person, place, not year or month. Correct president. Naming and repetition intact. Evidence of confabulation CN: VFFTC, EOMI, R>L facial twitching, symmetric smile. Motor: asterixis R>L Sensory: Intact and symmetric to temp Reflexes: 2+ except right ankle, which is fused - Patient Data Lab Results Last 24 hrs: Laboratory Results - last 24 hr 03/07/20 03/07/20 03/07/20 Range/Units 20:20 20:20 20:20 WBC 19.68 H (4.0-11.0) K/uL RBC 4.65 (4.30-5.90) M/uL Hgb 14.4 (12.0-16.0) g/dL Hct 42.6 (36.0-46.0) % MCV 91.6 (80.0-98.0) fL MCH 31.0 (27.0-32.0) pg MCHC 33.8 (31.0-37.0) g/dL RDW Std Deviation 46.1 (28.0-62.0) fl RDW Coeff of Brittny 14 (11.0-15.0) % Plt Count 275 (150-400) K/uL MPV 11.80 (7.40-12.00) fL Neut % (Auto) 91.2 H (48.0-80.0) % Lymph % (Auto) 6.4 L (16.0-40.0) % Sebastian % (Auto) 2.3 (0.0-15.0) % Eos % (Auto) 0.0 (0.0-7.0) % Baso % (Auto) 0.1 (0.0-1.5) % Neut # (Auto) 18.0 H (1.4-5.7) K/uL Lymph # (Auto) 1.3 (0.6-2.4) K/uL Sebastian # (Auto) 0.5 (0.0-0.8) K/uL Eos # (Auto) 0.0 (0.0-0.7) K/uL Baso # (Auto) 0.0 (0.0-0.1) K/uL Nucleated RBC % 0.0 /100WBC Nucleated RBCs # 0 K/uL INR 1.09 APTT (18.6-31.3) SEC Lactate 1.3 (0.20-2.00) mmol/L Sodium (136-145) mmol/L Potassium (3.5-5.1) mmol/L Chloride (98-107) mmol/L Carbon Dioxide (21.0-32.0) mmol/L BUN (7.0-18.0) mg/dL Creatinine (0.6-1.0) mg/dL Est Cr Clr Drug Dosing Estimated GFR (MDRD) ml/min Glucose (74-106) mg/dL Calcium (8.5-10.1) mg/dL Magnesium (1.8-2.4) mg/dL Total Bilirubin (0.2-1.0) mg/dL AST (15-37) IU/L ALT (14-63) IU/L Alkaline Phosphatase (46-116) U/L Troponin I (0.000-0.056) ng/mL Total Protein (6.4-8.2) g/dL Albumin (3.4-5.0) g/dL Globulin (2.6-4.0) g/dL Albumin/Globulin Ratio (0.9-1.6) Urine Color Urine Appearance Urine pH (5.0-8.0) Ur Specific [place] (1.001-1.035) Urine Protein (NEGATIVE) mg/dL Urine Glucose (UA) (NEGATIVE) mg/dL Urine Ketones (NEGATIVE) mg/dL Urine Occult Blood (NEGATIVE) Urine Nitrite (NEGATIVE) Urine Bilirubin (NEGATIVE) Urine Ictotest Urine Urobilinogen (<2.0) EU/dL Ur Leukocyte Esterase (NEGATIVE) Urine RBC (0-2/HPF) Urine WBC (0-5/HPF) Ur Epithelial Cells (NONE-FEW) Urine Bacteria (NEGATIVE) Urine Mucus (NONE-MOD) Urine Opiates Screen (NEGATIVE) Ur Oxycodone Screen (NEGATIVE) Urine Methadone Screen (NEGATIVE) Ur Barbiturates Screen (NEGATIVE) Ur Phencyclidine Scrn (NEGATIVE) Ur Amphetamine Screen (NEGATIVE) U Methamphetamines Scrn (NEGATIVE) U Benzodiazepines Scrn (NEGATIVE) U Cocaine Metab Screen (NEGATIVE) U Marijuana (THC) Screen (NEGATIVE) Ethyl Alcohol mg/dL SARS-CoV-2 RNA (KEI) (NEGATIVE) 03/07/20 03/07/20 03/07/20 Range/Units 20:20 20:20 22:47 WBC (4.0-11.0) K/uL RBC (4.30-5.90) M/uL Hgb (12.0-16.0) g/dL Hct (36.0-46.0) % MCV (80.0-98.0) fL MCH (27.0-32.0) pg MCHC (31.0-37.0) g/dL RDW Std Deviation (28.0-62.0) fl RDW Coeff of Brittny (11.0-15.0) % Plt Count (150-400) K/uL MPV (7.40-12.00) fL Neut % (Auto) (48.0-80.0) % Lymph % (Auto) (16.0-40.0) % Sebastian % (Auto) (0.0-15.0) % Eos % (Auto) (0.0-7.0) % Baso % (Auto) (0.0-1.5) % Neut # (Auto) (1.4-5.7) K/uL Lymph # (Auto) (0.6-2.4) K/uL Sebastian # (Auto) (0.0-0.8) K/uL Eos # (Auto) (0.0-0.7) K/uL Baso # (Auto) (0.0-0.1) K/uL Nucleated RBC % /100WBC Nucleated RBCs # K/uL INR APTT 25.1 (18.6-31.3) SEC Lactate (0.20-2.00) mmol/L Sodium 138 (136-145) mmol/L Potassium 3.2 L (3.5-5.1) mmol/L Chloride 102 (98-107) mmol/L Carbon Dioxide 22.8 (21.0-32.0) mmol/L BUN 14 (7.0-18.0) mg/dL Creatinine 0.9 (0.6-1.0) mg/dL Est Cr Clr Drug Dosing TNP Estimated GFR (MDRD) > 60.0 ml/min Glucose 158 H (74-106) mg/dL Calcium 8.9 (8.5-10.1) mg/dL Magnesium 2.0 (1.8-2.4) mg/dL Total Bilirubin 0.8 (0.2-1.0) mg/dL AST 32 (15-37) IU/L ALT 31 (14-63) IU/L Alkaline Phosphatase 153 H (46-116) U/L Troponin I 0.082 H* (0.000-0.056) ng/mL Total Protein 7.6 (6.4-8.2) g/dL Albumin 3.8 (3.4-5.0) g/dL Globulin 3.8 (2.6-4.0) g/dL Albumin/Globulin Ratio 1.0 (0.9-1.6) Urine Color Urine Appearance Urine pH (5.0-8.0) Ur Specific [place] (1.001-1.035) Urine Protein (NEGATIVE) mg/dL Urine Glucose (UA) (NEGATIVE) mg/dL Urine Ketones (NEGATIVE) mg/dL Urine Occult Blood (NEGATIVE) Urine Nitrite (NEGATIVE) Urine Bilirubin (NEGATIVE) Urine Ictotest Urine Urobilinogen (<2.0) EU/dL Ur Leukocyte Esterase (NEGATIVE) Urine RBC (0-2/HPF) Urine WBC (0-5/HPF) Ur Epithelial Cells (NONE-FEW) Urine Bacteria (NEGATIVE) Urine Mucus (NONE-MOD) Urine Opiates Screen (NEGATIVE) Ur Oxycodone Screen (NEGATIVE) Urine Methadone Screen (NEGATIVE) Ur Barbiturates Screen (NEGATIVE) Ur Phencyclidine Scrn (NEGATIVE) Ur Amphetamine Screen (NEGATIVE) U Methamphetamines Scrn (NEGATIVE) U Benzodiazepines Scrn (NEGATIVE) U Cocaine Metab Screen (NEGATIVE) U Marijuana (THC) Screen (NEGATIVE) Ethyl Alcohol <3 mg/dL SARS-CoV-2 RNA (KEI) NEGATIVE (NEGATIVE) 03/08/20 03/08/20 03/08/20 Range/Units 00:10 00:10 02:46 WBC (4.0-11.0) K/uL RBC (4.30-5.90) M/uL Hgb (12.0-16.0) g/dL Hct (36.0-46.0) % MCV (80.0-98.0) fL MCH (27.0-32.0) pg MCHC (31.0-37.0) g/dL RDW Std Deviation (28.0-62.0) fl RDW Coeff of Brittny (11.0-15.0) % Plt Count (150-400) K/uL MPV (7.40-12.00) fL Neut % (Auto) (48.0-80.0) % Lymph % (Auto) (16.0-40.0) % Sebastian % (Auto) (0.0-15.0) % Eos % (Auto) (0.0-7.0) % Baso % (Auto) (0.0-1.5) % Neut # (Auto) (1.4-5.7) K/uL Lymph # (Auto) (0.6-2.4) K/uL Sebastian # (Auto) (0.0-0.8) K/uL Eos # (Auto) (0.0-0.7) K/uL Baso # (Auto) (0.0-0.1) K/uL Nucleated RBC % /100WBC Nucleated RBCs # K/uL INR APTT (18.6-31.3) SEC Lactate (0.20-2.00) mmol/L Sodium (136-145) mmol/L Potassium (3.5-5.1) mmol/L Chloride (98-107) mmol/L Carbon Dioxide (21.0-32.0) mmol/L BUN (7.0-18.0) mg/dL Creatinine (0.6-1.0) mg/dL Est Cr Clr Drug Dosing Estimated GFR (MDRD) ml/min Glucose (74-106) mg/dL Calcium (8.5-10.1) mg/dL Magnesium (1.8-2.4) mg/dL Total Bilirubin (0.2-1.0) mg/dL AST (15-37) IU/L ALT (14-63) IU/L Alkaline Phosphatase (46-116) U/L Troponin I 0.117 H* (0.000-0.056) ng/mL Total Protein (6.4-8.2) g/dL Albumin (3.4-5.0) g/dL Globulin (2.6-4.0) g/dL Albumin/Globulin Ratio (0.9-1.6) Urine Color YELLOW Urine Appearance CLEAR Urine pH 5.5 (5.0-8.0) Ur Specific [place] >= 1.030 (1.001-1.035) Urine Protein TRACE H (NEGATIVE) mg/dL Urine Glucose (UA) NEGATIVE (NEGATIVE) mg/dL Urine Ketones >=80 (NEGATIVE) mg/dL Urine Occult Blood NEGATIVE (NEGATIVE) Urine Nitrite NEGATIVE (NEGATIVE) Urine Bilirubin SMALL H (NEGATIVE) Urine Ictotest NEGATIVE Urine Urobilinogen 0.2 (<2.0) EU/dL Ur Leukocyte Esterase NEGATIVE (NEGATIVE) Urine RBC 0-2 (0-2/HPF) Urine WBC 0-2 (0-5/HPF) Ur Epithelial Cells OCCASIONAL (NONE-FEW) Urine Bacteria FEW (NEGATIVE) Urine Mucus LIGHT (NONE-MOD) Urine Opiates Screen NEGATIVE (NEGATIVE) Ur Oxycodone Screen NEGATIVE (NEGATIVE) Urine Methadone Screen NEGATIVE (NEGATIVE) Ur Barbiturates Screen NEGATIVE (NEGATIVE) Ur Phencyclidine Scrn NEGATIVE (NEGATIVE) Ur Amphetamine Screen NEGATIVE (NEGATIVE) U Methamphetamines Scrn NEGATIVE (NEGATIVE) U Benzodiazepines Scrn POSITIVE (NEGATIVE) U Cocaine Metab Screen NEGATIVE (NEGATIVE) U Marijuana (THC) Screen NEGATIVE (NEGATIVE) Ethyl Alcohol mg/dL SARS-CoV-2 RNA (KEI) (NEGATIVE) 03/08/20 03/08/20 03/08/20 Range/Units 06:26 06:26 08:42 WBC 18.01 H (4.0-11.0) K/uL RBC 4.41 (4.30-5.90) M/uL Hgb 13.3 (12.0-16.0) g/dL Hct 40.4 (36.0-46.0) % MCV 91.6 (80.0-98.0) fL MCH 30.2 (27.0-32.0) pg MCHC 32.9 (31.0-37.0) g/dL RDW Std Deviation 46.4 (28.0-62.0) fl RDW Coeff of Brittny 14 (11.0-15.0) % Plt Count 264 (150-400) K/uL MPV 12.00 (7.40-12.00) fL Neut % (Auto) 89.4 H (48.0-80.0) % Lymph % (Auto) 7.7 L (16.0-40.0) % Sebastian % (Auto) 2.8 (0.0-15.0) % Eos % (Auto) 0.0 (0.0-7.0) % Baso % (Auto) 0.1 (0.0-1.5) % Neut # (Auto) 16.1 H (1.4-5.7) K/uL Lymph # (Auto) 1.4 (0.6-2.4) K/uL Sebastian # (Auto) 0.5 (0.0-0.8) K/uL Eos # (Auto) 0.0 (0.0-0.7) K/uL Baso # (Auto) 0.0 (0.0-0.1) K/uL Nucleated RBC % 0.0 /100WBC Nucleated RBCs # 0 K/uL INR APTT (18.6-31.3) SEC Lactate (0.20-2.00) mmol/L Sodium 143 (136-145) mmol/L Potassium 3.2 L (3.5-5.1) mmol/L Chloride 106 (98-107) mmol/L Carbon Dioxide 21.3 (21.0-32.0) mmol/L BUN 16 (7.0-18.0) mg/dL Creatinine 1.0 (0.6-1.0) mg/dL Est Cr Clr Drug Dosing 48.45 Estimated GFR (MDRD) 55.1 ml/min Glucose 164 H (74-106) mg/dL Calcium 8.9 (8.5-10.1) mg/dL Magnesium (1.8-2.4) mg/dL Total Bilirubin 0.5 (0.2-1.0) mg/dL AST 26 (15-37) IU/L ALT 29 (14-63) IU/L Alkaline Phosphatase 138 H (46-116) U/L Troponin I 0.098 H* (0.000-0.056) ng/mL Total Protein 7.1 (6.4-8.2) g/dL Albumin 3.5 (3.4-5.0) g/dL Globulin 3.6 (2.6-4.0) g/dL Albumin/Globulin Ratio 1.0 (0.9-1.6) Urine Color Urine Appearance Urine pH (5.0-8.0) Ur Specific [place] (1.001-1.035) Urine Protein (NEGATIVE) mg/dL Urine Glucose (UA) (NEGATIVE) mg/dL Urine Ketones (NEGATIVE) mg/dL Urine Occult Blood (NEGATIVE) Urine Nitrite (NEGATIVE) Urine Bilirubin (NEGATIVE) Urine Ictotest Urine Urobilinogen (<2.0) EU/dL Ur Leukocyte Esterase (NEGATIVE) Urine RBC (0-2/HPF) Urine WBC (0-5/HPF) Ur Epithelial Cells (NONE-FEW) Urine Bacteria (NEGATIVE) Urine Mucus (NONE-MOD) Urine Opiates Screen (NEGATIVE) Ur Oxycodone Screen (NEGATIVE) Urine Methadone Screen (NEGATIVE) Ur Barbiturates Screen (NEGATIVE) Ur Phencyclidine Scrn (NEGATIVE) Ur Amphetamine Screen (NEGATIVE) U Methamphetamines Scrn (NEGATIVE) U Benzodiazepines Scrn (NEGATIVE) U Cocaine Metab Screen (NEGATIVE) U Marijuana (THC) Screen (NEGATIVE) Ethyl Alcohol mg/dL SARS-CoV-2 RNA (KEI) (NEGATIVE) Result Diagrams: 03/08/20 06:26 03/08/20 06:26 Sepsis Event Note - Evaluation Sepsis Screening Result: No Definite Risk - Focused Exam Vital Signs: Vital Signs Temp Pulse Pulse Resp BP BP BP 03/08/20 12:23 174/99 H 03/08/20 09:14 94 165/105 H 03/08/20 08:08 36.3 C 84 20 165/105 H 03/08/20 04:00 78 18 130/98 H 03/08/20 03:50 130/98 H 03/08/20 03:30 175/82 H 03/08/20 03:07 196/102 H 03/08/20 02:52 03/08/20 02:30 205/101 H 03/08/20 02:10 36.6 C 94 18 209/119 H 03/08/20 01:30 35.8 C L 90 20 192/101 H Pulse Ox 03/08/20 12:23 03/08/20 09:14 03/08/20 08:08 93 L 03/08/20 04:00 03/08/20 03:50 03/08/20 03:30 03/08/20 03:07 03/08/20 02:52 95 03/08/20 02:30 03/08/20 02:10 96 03/08/20 01:30 97 Consult PN Assessment/Plan Procedures: Procedures ASSAY OF CK (CPK) (08/21/17) ASSAY OF MAGNESIUM (02/23/20) ASSAY OF PHOSPHORUS (02/23/20) ASSAY OF TROPONIN QUANT (02/23/20) BLOOD CULTURE FOR BACTERIA (09/07/19) BLOOD GASES ANY COMBINATION (02/23/20) CARPAL TUNNEL SURGERY (08/16/15) COMPLETE CBC W/AUTO DIFF WBC (02/23/20) COMPREHEN METABOLIC PANEL (02/23/20) CT ABD & PELV W/CONTRAST (09/20/19) CT ANGIOGRAPHY HEAD (02/01/20) CT ANGIOGRAPHY NECK (02/01/20) CT HEAD/BRAIN W/O DYE (02/23/20) CT THORAX W/DYE (11/04/14) CULTURE AEROBIC IDENTIFY (02/01/20) CULTURE OTHR SPECIMN AEROBIC (02/01/20) DRUG TEST PRSMV DIR OPT OBS (02/23/20) ELECTROCARDIOGRAM TRACING (02/23/20) EMERGENCY DEPT VISIT (02/23/20) EMERGENCY DEPT VISIT (08/21/17) EMERGENCY DEPT VISIT (09/05/14) EMERGENCY DEPT VISIT (12/22/13) EVALUATE PT USE OF INHALER (08/16/15) EXTRACRANIAL BILAT STUDY (02/01/20) EXTREMITY STUDY (12/22/13) FNA W/IMAGE (09/05/15) GLUCOSE BLOOD TEST (09/07/19) GLYCOSYLATED HEMOGLOBIN TEST (02/01/20) INJ TENDON SHEATH/LIGAMENT (08/29/15) LIPID PANEL (02/01/20) METABOLIC PANEL TOTAL CA (02/23/20) MICROBE SUSCEPTIBLE FREDERICK (02/01/20) OFFICE/OUTPATIENT VISIT EST (11/25/17) OFFICE/OUTPATIENT VISIT NEW (06/27/15) OT EVAL HIGH COMPLEX 60 MIN (09/16/17) POLYSOM 6/> YRS 4/> IVAN (08/11/15) PROTHROMBIN TIME (02/23/20) PT EVAL LOW COMPLEX 20 MIN (02/23/20) PT EVAL MOD COMPLEX 30 MIN (12/10/17) ROUTINE VENIPUNCTURE (02/23/20) THER/PROPH/DIAG INJ IV PUSH (09/20/19) THER/PROPH/DIAG IV INF INIT (08/21/17) THROMBOPLASTIN TIME PARTIAL (02/01/20) TTE W/DOPPLER COMPLETE (02/01/20) TX/PRO/DX INJ NEW DRUG ADDON (09/20/19) URINALYSIS AUTO W/O SCOPE (02/23/20) URINALYSIS AUTO W/SCOPE (09/07/19) URINE BACTERIA CULTURE (02/01/20) URINE CULTURE/COLONY COUNT (02/01/20) WITHDRAWAL OF ARTERIAL BLOOD (02/23/20) X-RAY EXAM CHEST 1 VIEW (02/23/20) X-RAY EXAM HIP UNI 1 VIEW (09/07/19) X-RAY EXAM HIP UNI 2-3 VIEWS (11/25/17) X-RAY EXAM OF FEMUR 2/> (02/23/20) X-RAY EXAM OF KNEE 3 (11/25/17) X-RAY EXAM OF PELVIS (02/23/20) X-RAY EXAM OF WRIST (06/27/15) X-RAY XM ESOPHAGUS 1CNTRST (11/14/14) (1) Encephalopathy acute SNOMED Code(s): 74625259, [id number] Code(s): G93.40 - ENCEPHALOPATHY, UNSPECIFIED Current Visit: Yes Assessment:: Encephalopathy: leading ddx toxic metabolic, hypertensive encephalopathy, benzo withdrawal (post ictal?), now improved although still disoriented to time. She may have had GI infection based on history. I will defer to primary team for any further infectious work up. Her encephalopathy is improving. I agree with restarting home regimen of Ativan. She may benefit from tapering off of this medication with guidance from PCP. I suspect she may have underlying dementia. Problem List Initiated/Reviewed/Updated: Yes
[2020-03-08] MEDS: Piperacillin/Tazobactam 3.375 GM in Sodium Chloride 0.9% 50 ML IV SCH ×2 (14:37→19:33)
[2020-03-08] MEDS: LORazepam 1 MG Tab PO SCH ×2 (15:08→20:35)
[2020-03-08] MEDS ORDERED: Non-Formulary Medication 1 Each (Hydrocodone/Acetaminophen 1 TAB) PO PRN (15:45)
[2020-03-09] MEDS: Piperacillin/Tazobactam 3.375 GM in Sodium Chloride 0.9% 50 ML IV SCH ×4 (00:13→18:32)
[2020-03-09] MEDS: Acetaminophen/HYDROcodone 325-10 MG Tab PO PRN ×3 (00:18→18:43)
[2020-03-09] MEDS: LORazepam 1 MG Tab PO SCH ×3 (02:47→22:31)
[2020-03-09] MEDS: Pantoprazole 40 MG in Sodium Chloride 0.9% 10 ML IV SCH (02:49)
[2020-03-09 06:44] LABS: CARBON DIOXIDE,CO2 25.2 mmol/L (21.0-32.0); POTASSIUM,K 3.3 mmol/L (3.5-5.1)
--- NOTE | 2020-03-09 09:04 | PCM.PN ---
- General Info Date of Service: 03/09/20 Admission Dx/Problem (Free Text): Admission Diagnosis/Problem Admission Diagnosis/Problem Confusion Subjective Update: Much improved today, no chest pain or SOB. Eating breakfast. A/O x 3. Mild tremors noted. No other complaints Functional Status: Reports: Pain Controlled, Tolerating Diet, Urinating - Review of Systems General: Reports: No Symptoms. Denies: Weakness, Fatigue, Malaise Pulmonary: Reports: Cough, Wheezing. Denies: Shortness of Breath Cardiovascular: Reports: No Symptoms. Denies: Chest Pain Gastrointestinal: Reports: No Symptoms. Denies: Abdominal Pain, Nausea, Vomiting Genitourinary: Reports: No Symptoms. Denies: Dysuria, Frequency Musculoskeletal: Reports: No Symptoms Skin: Reports: No Symptoms Neurological: Reports: No Symptoms Psychiatric: Reports: No Symptoms - Patient Data Vitals - Most Recent: Last Vital Signs Temp 97.9 F 03/09/20 04:00 Pulse 67 03/08/20 16:00 Resp 20 03/09/20 07:00 BP 156/39 H 03/09/20 07:00 Pulse Ox 94 L 03/09/20 07:00 Weight - Most Recent: 80.7 kg I&O - Last 24 Hours: Intake & Output 03/08/20 03/09/20 03/09/20 22:59 06:59 14:59 Intake Total 1290 1400 Output Total 350 Balance 1290 1050 Lab Results Last 24 Hours: Laboratory Results - last 24 hr 03/08/20 03/09/20 03/09/20 Range/Units 08:42 05:50 05:50 WBC 14.43 H (4.0-11.0) K/uL RBC 3.69 L (4.30-5.90) M/uL Hgb 11.0 L (12.0-16.0) g/dL Hct 34.3 L (36.0-46.0) % MCV 93.0 (80.0-98.0) fL MCH 29.8 (27.0-32.0) pg MCHC 32.1 (31.0-37.0) g/dL RDW Std Deviation 49.3 (28.0-62.0) fl RDW Coeff of Brittny 14 (11.0-15.0) % Plt Count 222 (150-400) K/uL MPV 11.60 (7.40-12.00) fL Neut % (Auto) 68.1 (48.0-80.0) % Lymph % (Auto) 23.8 (16.0-40.0) % Allen % (Auto) 7.8 (0.0-15.0) % Eos % (Auto) 0.1 (0.0-7.0) % Baso % (Auto) 0.2 (0.0-1.5) % Neut # (Auto) 9.8 H (1.4-5.7) K/uL Lymph # (Auto) 3.4 H (0.6-2.4) K/uL Allen # (Auto) 1.1 H (0.0-0.8) K/uL Eos # (Auto) 0.0 (0.0-0.7) K/uL Baso # (Auto) 0.0 (0.0-0.1) K/uL Nucleated RBC % 0.0 /100WBC Nucleated RBCs # 0 K/uL Sodium 139 (136-145) mmol/L Potassium 3.3 L (3.5-5.1) mmol/L Chloride 105 (98-107) mmol/L Carbon Dioxide 25.2 (21.0-32.0) mmol/L BUN 17 (7.0-18.0) mg/dL Creatinine 1.1 H (0.6-1.0) mg/dL Est Cr Clr Drug Dosing 44.05 mL/min Estimated GFR (MDRD) 49.4 ml/min Glucose 102 (74-106) mg/dL Calcium 8.3 L (8.5-10.1) mg/dL Magnesium 2.1 (1.8-2.4) mg/dL Total Bilirubin 0.7 (0.2-1.0) mg/dL AST 17 (15-37) IU/L ALT 23 (14-63) IU/L Alkaline Phosphatase 105 (46-116) U/L Troponin I 0.098 H* (0.000-0.056) ng/mL Total Protein 6.1 L (6.4-8.2) g/dL Albumin 3.1 L (3.4-5.0) g/dL Globulin 3.0 (2.6-4.0) g/dL Albumin/Globulin Ratio 1.0 (0.9-1.6) Mohit Results Last 24 Hours: Microbiology 03/07/20 22:45 Aerobic Blood Culture - Preliminary Blood - Venous - Lab Draw NO GROWTH AFTER 1 DAY Anaerobic Blood Culture - Preliminary NO GROWTH AFTER 1 DAY 03/07/20 22:36 Aerobic Blood Culture - Preliminary Blood - Venous NO GROWTH AFTER 1 DAY Anaerobic Blood Culture - Preliminary NO GROWTH AFTER 1 DAY Med Orders - Current: Current Medications Acetaminophen (Tylenol) 650 mg PO Q6H PRN PRN Reason: Pain Hydrocodone Bitart/Acetaminophen ([place] 325-10 Mg) 1 tab PO Q6H PRN PRN Reason: PAIN Last Admin: 03/09/20 06:46 Dose: 1 tab Documented by: Apixaban (Eliquis) 5 mg PO BID [facility] Last Admin: 03/08/20 20:33 Dose: 5 mg Documented by: Diltiazem HCl (Cardizem Cd) 240 mg PO DAILY [facility] Duloxetine HCl (Cymbalta) 120 mg PO DAILY [facility] Escitalopram Oxalate (Lexapro) 10 mg PO DAILY [facility] Furosemide (Lasix) 20 mg PO DAILY [facility] Last Admin: 03/08/20 12:25 Dose: 20 mg Documented by: Pantoprazole Sodium 40 mg/ (Sodium Chloride) 10 mls @ 300 mls/hr IV Q24H [facility] Last Admin: 03/09/20 02:49 Dose: 300 mls/hr Documented by: Piperacillin Sod/Tazobactam (Sod 3.375 gm/ Sodium Chloride) 50 mls @ 100 mls/hr IV Q6H [facility] Last Admin: 03/09/20 06:46 Dose: 100 mls/hr Documented by: Lorazepam (Ativan) 1 mg PO Q6H [facility] Last Admin: 03/09/20 02:47 Dose: 1 mg Documented by: Olmesartan (Benicar) 40 mg PO DAILY [facility] Last Admin: 03/08/20 12:23 Dose: 40 mg Documented by: Ondansetron HCl (Zofran) 4 mg IVPUSH Q4H PRN PRN Reason: Nausea/Vomiting Last Admin: 03/08/20 06:15 Dose: 4 mg Documented by: Sodium Chloride (Saline Flush) 2.5 ml FLUSH ASDIRECTED PRN PRN Reason: Keep Vein Open Discontinued Medications Aspirin (Aspirin) 325 mg PO ONETIME ONE Stop: 03/08/20 03:34 Last Admin: 03/08/20 03:51 Dose: 325 mg Documented by: Diltiazem HCl (Cardizem Cd) 240 mg PO DAILY [facility] Stop: 03/08/20 08:48 Last Admin: 03/08/20 09:14 Dose: 240 mg Documented by: Sodium Chloride (Normal Saline) 1,000 mls @ 999 mls/hr IV .Bolus ONE Stop: 03/07/20 22:16 Last Admin: 03/07/20 22:11 Dose: 999 mls/hr Documented by: Ceftriaxone Sodium/Dextrose 2 (gm/ Premix) 50 mls @ 100 mls/hr IV ONETIME ONE Stop: 03/07/20 21:45 Last Admin: 03/07/20 22:11 Dose: 100 mls/hr Documented by: Sodium Chloride (Normal Saline) 2,000 mls @ 2,000 mls/hr IV BOLUS ONE; Protocol Stop: 03/07/20 23:53 Last Admin: 03/08/20 00:24 Dose: 2,000 mls/hr Documented by: Vancomycin HCl 2,000 gm/ (Sodium Chloride) 250 mls @ 167 mls/hr IV STAT ONE Stop: 03/08/20 00:23 Last Admin: 03/08/20 00:01 Dose: 167 mls/hr Documented by: Iopamidol (Isovue-370 (76%)) 100 ml IVPUSH ONETIME ONE Stop: 03/08/20 02:01 Last Admin: 03/08/20 02:00 Dose: 100 ml Documented by: Labetalol HCl (Normodyne) 10 mg IVPUSH ONETIME ONE; Protocol Stop: 03/08/20 02:24 Last Admin: 03/08/20 03:00 Dose: 10 mg Documented by: Lorazepam (Ativan) 1 mg IVPUSH ONETIME ONE Stop: 03/08/20 09:18 Last Admin: 03/08/20 09:49 Dose: 1 mg Documented by: Metoprolol Tartrate (Lopressor) 25 mg PO ONETIME ONE Stop: 03/08/20 03:34 Last Admin: 03/08/20 03:50 Dose: Not Given Documented by: Non-Formulary Medication (Hydrocodone/Acetaminophen) 1 tab PO 6XDAY PRN PRN Reason: Pain Potassium Chloride (Klor-Con 10) 40 meq PO ONETIME ONE Stop: 03/08/20 10:39 Last Admin: 03/08/20 12:22 Dose: 40 meq Documented by: Prochlorperazine Edisylate (Compazine) 10 mg IVPUSH ONETIME ONE Stop: 03/07/20 21:33 Last Admin: 03/07/20 22:11 Dose: 10 mg Documented by: Prochlorperazine Edisylate (Compazine) 10 mg IVPUSH ONETIME ONE Stop: 03/08/20 01:24 Last Admin: 03/08/20 01:29 Dose: 10 mg Documented by: Sodium Chloride (Saline Flush) 2.5 ml FLUSH ASDIRECTED PRN PRN Reason: Keep Vein Open Sodium Chloride (Saline Flush) 10 ml FLUSH ASDIRECTED PRN PRN Reason: Keep Vein Open Sodium Chloride (Saline Flush) 10 ml FLUSH ASDIRECTED PRN PRN Reason: Keep Vein Open Sodium Chloride (Saline Flush) 2.5 ml FLUSH ASDIRECTED PRN PRN Reason: Keep Vein Open Last Admin: 03/08/20 09:51 Dose: 2.5 ml Documented by: - Exam General: Alert, Oriented, Cooperative, No Acute Distress Lungs: Normal Respiratory Effort, Rhonchi, Wheezing Cardiovascular: Regular Rate, Regular Rhythm GI/Abdominal Exam: Normal Bowel Sounds, Soft, Non-Tender Extremities: Normal Inspection, Normal Range of Motion, Non-Tender Skin: Other (pressure ulcer to medial R heel, reports this rest on wheel chair at home. Will apply protectant and arrange follow up with podiatry. No erythema, non blanchable, bullae. ) Sepsis Event Note - Evaluation Sepsis Screening Result: No Definite Risk - Focused Exam Vital Signs: Vital Signs Temp Resp BP Pulse Ox 03/09/20 07:00 20 156/39 H 94 L 03/09/20 06:00 20 160/68 H 96 03/09/20 05:00 22 H 154/75 H 96 03/09/20 04:00 97.9 F 17 149/78 H 95 03/09/20 03:00 22 H 149/70 H 96 03/09/20 02:00 18 161/76 H 96 03/09/20 01:00 17 146/77 H 96 03/09/20 00:00 98.1 F 23 H 163/77 H 96 03/08/20 23:00 23 H 162/76 H 96 03/08/20 22:00 21 H 157/82 H 95 - Problem List & Annotations (1) Hypertensive urgency SNOMED Code(s): 088629246 Code(s): I16.0 - HYPERTENSIVE URGENCY Status: Resolved Current Visit: Yes (2) History of CVA (cerebrovascular accident) SNOMED Code(s): 393290126 Code(s): Z86.73 - PRSNL HX OF TIA (TIA), AND CEREB INFRC W/O RESID DEFICITS Status: Acute Current Visit: Yes (3) Hx of TIA (transient ischemic attack) and stroke SNOMED Code(s): 649910019, 281190443, 074516797 Code(s): Z86.73 - PRSNL HX OF TIA (TIA), AND CEREB INFRC W/O RESID DEFICITS Status: Acute Current Visit: Yes (4) H/O tachycardia-bradycardia syndrome SNOMED Code(s): 566237443436693 Code(s): Z86.79 - PERSONAL HISTORY OF OTHER DISEASES OF THE CIRCULATORY SYSTEM Status: Acute Current Visit: Yes (5) Pacemaker SNOMED Code(s): 079329998 Code(s): Z95.0 - PRESENCE OF CARDIAC PACEMAKER Status: Acute Current Visit: Yes (6) Benzodiazepine withdrawal SNOMED Code(s): 183220251 Code(s): F13.239 - SEDATV/HYP/ANXIOLYTC DEPENDENCE W WITHDRAWAL, UNSP Status: Acute Current Visit: Yes (7) Sepsis SNOMED Code(s): 47436091 Code(s): A41.9 - SEPSIS, UNSPECIFIED ORGANISM Status: Acute Current Visit: Yes (8) Afib SNOMED Code(s): 69141573 Code(s): I48.91 - UNSPECIFIED ATRIAL FIBRILLATION Status: Chronic Current Visit: No Qualifiers: Atrial fibrillation type: persistent (not longstanding) Qualified Code(s): I48.19 - Other persistent atrial fibrillation; I48.1 - Persistent atrial fibrillation (9) HLD (hyperlipidemia) SNOMED Code(s): 40727732 Code(s): E78.5 - HYPERLIPIDEMIA, UNSPECIFIED Status: Chronic Current Visit: No (10) HTN (hypertension) SNOMED Code(s): 56539679 Code(s): I10 - ESSENTIAL (PRIMARY) HYPERTENSION Status: Chronic Current Visit: No (11) Wheelchair bound SNOMED Code(s): 968031265, 867192324 Code(s): Z99.3 - DEPENDENCE ON WHEELCHAIR Status: Chronic Current Visit: No - Problem List Review Problem List Initiated/Reviewed/Updated: Yes - My Orders Last 24 Hours: My Active Orders 03/08/20 09:27 Consult to Physician [CONS] Urgent 03/08/20 09:30 Notify Provider Consults [RC] ASDIRECTED 03/08/20 10:14 Resuscitation Status Routine 03/08/20 10:57 Transfer Patient (Change bed) [ADT] Routine 03/08/20 11:00 Apixaban [Eliquis] 5 mg PO BID Furosemide [Lasix] 20 mg PO DAILY Olmesartan [Benicar] 40 mg PO DAILY 03/08/20 11:02 Vital Signs [RC] Q1H 03/08/20 11:45 Daily Weight [Height and Weight] [RC] DAILY 03/08/20 11:47 Sodium Chloride 0.9% [Saline Flush] 2.5 ml FLUSH ASDIRECTED PRN Saline Lock Insert [OM.PC] Routine 03/08/20 12:45 Piperacillin/Tazobactam [Piperacil-Tazobact] 3.375 gm Sodium Chloride 0.9% [Normal Saline] 50 ml IV Q6H 03/08/20 15:00 LORazepam [Ativan] 1 mg PO Q6H 03/08/20 15:55 Acetaminophen/HYDROcodone [[place] 325-10 MG] 1 tab PO Q6H PRN 03/08/20 21:19 C DIFFICILE AG/TOXIN W/REFLEX [RM] Urgent STOOL CULTURE/SHIGA TOXIN [MREF] Urgent 03/09/20 09:00 DULoxetine [Cymbalta] 120 mg PO DAILY Diltiazem [Cardizem CD] 240 mg PO DAILY Escitalopram [Lexapro] 10 mg PO DAILY 03/10/20 05:11 MAGNESIUM [CHEM] AM 03/11/20 05:11 MAGNESIUM [CHEM] AM - Plan Plan:: This 69 year old female admitted with confusion, possible sepsis, hypertensive urgency and elevated troponin 1. Hypertensive urgency - Resolved - Continue Diltiazem, Olmesartan, Lasix 2. Confusion/benzodiazepine withdrawal - Confusion resolved, continue Ativan administration. - repeat Head CT negative - Will give 1 mg Ativan every 6 hours to manage withdrawal, normally takes 3 mg BID. 3. Elevated troponin - Likely secondary to hypertensive urgency. - Continues to downtrend 4. Possible Aspiration PNA - Repeat XRay done yesterday due to hypoxia - Possible RUL opacity - Potential for benzodiazepine withdrawal seizure at home causing aspiration, Continue Zosyn and monitor - No further hypoxia overnight - Leukocytosis improved. 5. Afib/HLD/Hx CVA - Monitor on secured entrance monitor - Continue Eliquis BID - Continue Atorvastatin 80 mg daily 6. Chronic pain - Monitor 7. Pulmonary fibrosis/COPD - Oxygen PRN - No signs of infection VTE prophylaxis: Eliquis Dispo: 2-3 days pending improvement
[2020-03-09] MEDS ORDERED: LORazepam 2 MG/ML SDV IVPUSH PRN (09:52)
[2020-03-09] MEDS: Furosemide 20 MG Tab PO SCH (10:00)
[2020-03-09] MEDS: Diltiazem 120 MG Cap.CD PO SCH (10:00)
[2020-03-09] MEDS: Apixaban 5 MG Tab PO SCH ×2 (10:00→21:14)
[2020-03-09] MEDS: Olmesartan 20 MG Tab PO SCH (10:00)
[2020-03-09] MEDS: DULoxetine 60 MG Cap PO SCH (10:00)
[2020-03-09] MEDS: Escitalopram 10 MG Tab PO SCH (10:10)
[2020-03-09] MEDS ORDERED: Sodium Chloride 0.9% 50 ML ONE (12:05)
[2020-03-10] MEDS: Piperacillin/Tazobactam 3.375 GM in Sodium Chloride 0.9% 50 ML IV SCH ×3 (01:19→11:55)
[2020-03-10] MEDS: Pantoprazole 40 MG in Sodium Chloride 0.9% 10 ML IV SCH (04:06)
[2020-03-10 06:30] LABS: CARBON DIOXIDE,CO2 25.9 mmol/L (21.0-32.0); POTASSIUM,K 2.8 mmol/L (3.5-5.1)
[2020-03-10] MEDS: LORazepam 1 MG Tab PO SCH (06:37)
[2020-03-10] MEDS: Acetaminophen/HYDROcodone 325-10 MG Tab PO PRN (07:39)
[2020-03-10 07:52] VITALS: BP 180/83; PULSE 66
[2020-03-10] MEDS ORDERED: Potassium Chloride 20 MEQ Tab.ER PO ONE ×2 (07:55→11:30)
[2020-03-10] MEDS: Diltiazem 120 MG Cap.CD PO SCH (08:26)
[2020-03-10] MEDS: Olmesartan 20 MG Tab PO SCH (08:26)
[2020-03-10] MEDS: Escitalopram 10 MG Tab PO SCH (08:27)
[2020-03-10] MEDS: DULoxetine 60 MG Cap PO SCH (08:27)
[2020-03-10] MEDS: Furosemide 20 MG Tab PO SCH (08:27)
[2020-03-10] MEDS: Apixaban 5 MG Tab PO SCH (08:27)
--- NOTE | 2020-03-10 12:23 | PCM.DCSUM1 ---
Discharge Summary - Hospital Course Brief History: This 69-year-old female with PMH of CVA, multiple TIAs, HLD, HTN, A. 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 This morning patient was unable to provide any information as to what had happened. I was able to speak with both her son Richard and family friend Eileen who were able to fill in some blanks. They report that Friday she started becoming very confused having nausea vomiting and incontinence of stool and urine. They are unsure if she has been taking her medications. Reporting some falls at home. She has not been eating or drinking much at home either since Friday. She was previously admitted for COPD exacerbation and somnolence due to overmedication with Ativan and hydrocodone. She was discharged home on 02/23 with a azithromycin and prednisone. At that time we also discussed the dangers nature of Ativan and hydrocodone and that she should see PCP regarding weaning of these medications. In the ER leukocytosis of 19,000 was noted she had extensive work-up for sepsis. Chest x-ray negative showing only some ground glass opacities consistent with previous x-rays and pulmonary fibrosis. Head CT was normal abdominal CT normal no signs of deep-seated infection. UA negative for UTI. Tox screen showed positive for benzodiazepines. Troponin elevated 0.0 78. EKG obtained showing prolonged QTC atrial paced no signs of ST depression or elevation. Blood pressure was noted to be 200-220 SBP. She was given labetalol which improved blood pressure down to the 140s to 160s SBP. She continued to be confused and very tremulous. She was admitted for confusion and possible sepsis. This morning she continued to be very tremulous and confused but was able to state she had not taken any medications in a few days. Concern was for possible benzodiazepine withdrawal. No focal neurologic deficits were noted. I did speak with Dr. Guzman, Neurology due to her high risk of stroke due to A. fib and known right and left carotid stenosis. Dr. Guzman will come and evaluate patient. Regarding troponin. I spoke with Dr Ramos, Cardiology in [place]. He suspects likely troponin leak due to hypertensive urgency, which then improved with control of HTN. He recommends continuing to improve BP and have her follow up with Cardiology in 1 month. If she were to have typical angina pain or CHF type symptoms then he would consider transfer for further cardiology management. Diagnosis: Stroke: No - Discharge Data Discharge Date: 03/10/20 Discharge Disposition: Home, W Home Health Agency 06 Condition: Good - Referral to Home Health Date of Face to Face Encounter: 03/10/20 Reason for Homebound Status: Resume Home Health, Primary Care Physician: PCP None Skilled Need: Resume Home health. She is in need of close monitoring of medications, including narcotics and benzodiazepines. She is in need of PT and OT to evaluate strength, transfers and ability to perform ADLs. - Discharge Diagnosis/Problem(s) (1) Hypertensive urgency SNOMED Code(s): 617797183 ICD Code: I16.0 - HYPERTENSIVE URGENCY Status: Resolved (2) History of CVA (cerebrovascular accident) SNOMED Code(s): 361633509 ICD Code: Z86.73 - PRSNL HX OF TIA (TIA), AND CEREB INFRC W/O RESID DEFICITS Status: Acute (3) Hx of TIA (transient ischemic attack) and stroke SNOMED Code(s): 916629772, 947325254, 967363798 ICD Code: Z86.73 - PRSNL HX OF TIA (TIA), AND CEREB INFRC W/O RESID DEFICITS Status: Acute (4) H/O tachycardia-bradycardia syndrome SNOMED Code(s): 510563075653715 ICD Code: Z86.79 - PERSONAL HISTORY OF OTHER DISEASES OF THE CIRCULATORY SYSTEM Status: Acute (5) Pacemaker SNOMED Code(s): 433950147 ICD Code: Z95.0 - PRESENCE OF CARDIAC PACEMAKER Status: Acute (6) Benzodiazepine withdrawal SNOMED Code(s): 161392654 ICD Code: F13.239 - SEDATV/HYP/ANXIOLYTC DEPENDENCE W WITHDRAWAL, UNSP Status: Acute (7) Sepsis SNOMED Code(s): 86799278 ICD Code: A41.9 - SEPSIS, UNSPECIFIED ORGANISM Status: Resolved (8) Afib SNOMED Code(s): 00271904 ICD Code: I48.91 - UNSPECIFIED ATRIAL FIBRILLATION Status: Chronic Qualifiers: Atrial fibrillation type: persistent (not longstanding) Qualified Code(s): I48.19 - Other persistent atrial fibrillation; I48.1 - Persistent atrial fibrillation (9) HLD (hyperlipidemia) SNOMED Code(s): 90789282 ICD Code: E78.5 - HYPERLIPIDEMIA, UNSPECIFIED Status: Chronic (10) HTN (hypertension) SNOMED Code(s): 91247806 ICD Code: I10 - ESSENTIAL (PRIMARY) HYPERTENSION Status: Chronic (11) Wheelchair bound SNOMED Code(s): 495496445, 726856510 ICD Code: Z99.3 - DEPENDENCE ON WHEELCHAIR Status: Chronic - Patient Summary/Data Consults: Consultations 03/08/20 09:27 Consult to Physician [CONS] Urgent Hospital Course: Admitting Diagnoses: Suspected CVA Hypertensive urgency Benzodiazepine withdrawal Sepsis, unknown source Discharge Diagnoses Benzodiazepine withdrawal Aspiration pneumonia Hypertensive urgency- resolved Other PMH Anxiety benzodiazepine dependence Narcotic dependence Afib Anticoagulation COPD HTN Non ambulatory pacemaker tachy-govind syndrome Britt was admitted secondary to hypertensive urgency. Initially is was suspected that she was having a CVA, but after finding out she had not had any medications in several days, and knowing her benzodiazepine dependence, we gave small dose of Ativan which quickly helped with patients tremors, hypertension and alertness. Head CT was repeated and she was evaluated by Dr guzman, neurology. Suspected benzodiazepine withdrawal causing symptoms. She was restarted on all her medications. Troponin was noted to be elevated, which cardiology felt was due to hypertensive urgency. No chest pain and no EKG findings were noted. She is to see cardiology in 1 month. She did become slightly hypoxia on day 1 of admission, repeat Xr showed developing R upper lobe pneumonia, suspicious for possible aspiration and likely seizure with withdrawal at home. Zosyn started for this, leukocytosis improved. Will continue Augmentin BID for 4 more days at home. We again discussed the dangerous nature of benzodiazepines. She was tapered to 1 mg TID of Ativan, and tolerated this well. She was encouraged to wean off with guidance of her PCP. She may be dosing herself extra at home as family had concerns they are unsure what she takes and that she is giving herself medications often. Home Health will be resumed and they should monitor medications closely. She is to follow with PCP in [address] Villavicencio in 1 month. She is to return to ED or clinic if concerns should arise. - Patient Instructions Diet: Heart Healthy Diet Activity: As Tolerated, No Strenuous Activities Driving: Do Not Drive Showering/Bathing: May Shower Notify Provider of: Fever, Increased Pain, Swelling and Redness, Drainage, Nausea and/or Vomiting - Discharge Plan *PRESCRIPTION DRUG MONITORING PROGRAM REVIEWED*: Not Applicable *COPY OF PRESCRIPTION DRUG MONITORING REPORT IN PATIENT ALMA ROSA: Not Applicable Prescriptions/Med Rec: Amoxicillin/Clavulanate K [Augmentin 875-125 MG] 1 tab PO BID #7 tablet Home Medications: Home Meds DULoxetine HCl [Duloxetine HCl] 120 mg PO DAILY 12/22/13 [History] Apixaban [Eliquis] 5 mg PO BID 08/14/15 [History] Esomeprazole [NexIUM] 40 mg PO DAILY 08/21/17 [History] Olmesartan Medoxomil 40 mg PO DAILY 09/07/19 [History] Albuterol/Ipratropium [Combivent Respimat] 1 inhalation PO QID PRN 02/02/20 [History] Escitalopram [Lexapro] 10 mg PO DAILY 02/02/20 [History] Furosemide 20 mg PO DAILY 02/02/20 [History] Gabapentin [Neurontin] 600 mg PO TID 02/02/20 [History] Levalbuterol Tartrate [Xopenex HFA] 2 inhalation PO Q4H PRN 02/02/20 [History] Diclofenac Sodium 1 applic TOP QID PRN 02/23/20 [History] dilTIAZem HCL [Diltiazem 24Hr ER] 240 mg PO DAILY 02/23/20 [History] hydrOXYzine pamoate [Hydroxyzine Pamoate] 25 mg PO TID PRN 02/23/20 [History] Collagenase [Santyl Oint] 1 applic TP ASDIRECTED PRN 03/08/20 [History] Fluconazole 150 mg PO Q3D PRN 03/08/20 [History] Hydrocodone/Acetaminophen [Hydrocodone-Acetamin 10-325 mg] 1 tab PO 6XDAY PRN 03/08/20 [History] Amoxicillin/Clavulanate K [Augmentin 875-125 MG] 1 tab PO BID #7 tablet 03/10/20 [Rx] LORazepam [Ativan] 1 mg PO BID tablet 03/10/20 [Rx] Oxygen Therapy Mode: Room Air Patient Handouts: Amoxicillin; Clavulanic Acid tablets, Transient Ischemic Attack, [id number] Referrals: Deeprasertkul,[place], MD [Physician] - 04/14/20 1:00 pm Meghna Irby DO [Ordering Only Provider] - - Discharge Summary/Plan Comment DC Time >30 min.: No - Patient Data Vitals - Most Recent: Last Vital Signs Temp 98.5 F 03/10/20 07:51 Pulse 66 03/10/20 08:26 Resp 18 03/10/20 07:51 BP 180/83 H 03/10/20 08:26 Pulse Ox 96 03/10/20 07:51 Weight - Most Recent: 80.7 kg I&O - Last 24 hours: Intake & Output 03/09/20 03/10/20 03/10/20 22:59 06:59 14:59 Intake Total 630 760 Output Total 600 650 Balance 30 110 Lab Results - Last 24 hrs: Laboratory Results - last 24 hr 03/10/20 03/10/20 03/10/20 Range/Units 05:22 05:22 11:21 WBC 11.64 H (4.0-11.0) K/uL RBC 3.88 L (4.30-5.90) M/uL Hgb 11.6 L (12.0-16.0) g/dL Hct 36.1 (36.0-46.0) % MCV 93.0 (80.0-98.0) fL MCH 29.9 (27.0-32.0) pg MCHC 32.1 (31.0-37.0) g/dL RDW Std Deviation 48.4 (28.0-62.0) fl RDW Coeff of Brittny 14 (11.0-15.0) % Plt Count 215 (150-400) K/uL MPV 11.90 (7.40-12.00) fL Neut % (Auto) 71.7 (48.0-80.0) % Lymph % (Auto) 19.8 (16.0-40.0) % [place] % (Auto) 7.6 (0.0-15.0) % Eos % (Auto) 0.6 (0.0-7.0) % Baso % (Auto) 0.3 (0.0-1.5) % Neut # (Auto) 8.3 H (1.4-5.7) K/uL Lymph # (Auto) 2.3 (0.6-2.4) K/uL [place] # (Auto) 0.9 H (0.0-0.8) K/uL Eos # (Auto) 0.1 (0.0-0.7) K/uL Baso # (Auto) 0.0 (0.0-0.1) K/uL Nucleated RBC % 0.0 /100WBC Nucleated RBCs # 0 K/uL Sodium 144 (136-145) mmol/L Potassium 2.8 L 3.3 L (3.5-5.1) mmol/L Chloride 108 H (98-107) mmol/L Carbon Dioxide 25.9 (21.0-32.0) mmol/L BUN 14 (7.0-18.0) mg/dL Creatinine 1.0 (0.6-1.0) mg/dL Est Cr Clr Drug Dosing 48.45 mL/min Estimated GFR (MDRD) 55.1 ml/min Glucose 100 (74-106) mg/dL Calcium 8.5 (8.5-10.1) mg/dL Magnesium 1.9 (1.8-2.4) mg/dL FREDERICK Results - Last 24 hrs: Microbiology 03/07/20 22:45 Aerobic Blood Culture - Preliminary Blood - Venous - Lab Draw NO GROWTH AFTER 2 DAYS Anaerobic Blood Culture - Preliminary NO GROWTH AFTER 2 DAYS 03/07/20 22:36 Aerobic Blood Culture - Preliminary Blood - Venous NO GROWTH AFTER 2 DAYS Anaerobic Blood Culture - Preliminary NO GROWTH AFTER 2 DAYS Med Orders - Current: Current Medications Acetaminophen (Tylenol) 650 mg PO Q6H PRN PRN Reason: Pain Hydrocodone Bitart/Acetaminophen (Ridgely 325-10 Mg) 1 tab PO Q6H PRN PRN Reason: PAIN Last Admin: 03/10/20 07:39 Dose: 1 tab Documented by: Apixaban (Eliquis) 5 mg PO BID [facility] Last Admin: 03/10/20 08:27 Dose: 5 mg Documented by: Diltiazem HCl (Cardizem Cd) 240 mg PO DAILY [facility] Last Admin: 03/10/20 08:26 Dose: 240 mg Documented by: Duloxetine HCl (Cymbalta) 120 mg PO DAILY [facility] Last Admin: 03/10/20 08:27 Dose: 120 mg Documented by: Escitalopram Oxalate (Lexapro) 10 mg PO DAILY [facility] Last Admin: 03/10/20 08:27 Dose: 10 mg Documented by: Furosemide (Lasix) 20 mg PO DAILY [facility] Last Admin: 03/10/20 08:27 Dose: 20 mg Documented by: Pantoprazole Sodium 40 mg/ (Sodium Chloride) 10 mls @ 300 mls/hr IV Q24H [facility] Last Admin: 03/10/20 04:06 Dose: 300 mls/hr Documented by: Piperacillin Sod/Tazobactam (Sod 3.375 gm/ Sodium Chloride) 50 mls @ 100 mls/hr IV Q6H [facility] Last Admin: 03/10/20 11:55 Dose: 100 mls/hr Documented by: Lorazepam (Ativan) 1 mg PO TID [facility] Last Admin: 03/10/20 06:37 Dose: 1 mg Documented by: Lorazepam (Ativan) 0 mg IVPUSH Q4H PRN; Protocol PRN Reason: CIWAA Olmesartan (Benicar) 40 mg PO DAILY [facility] Last Admin: 03/10/20 08:26 Dose: 40 mg Documented by: Ondansetron HCl (Zofran) 4 mg IVPUSH Q4H PRN PRN Reason: Nausea/Vomiting Last Admin: 03/08/20 06:15 Dose: 4 mg Documented by: Sodium Chloride (Saline Flush) 2.5 ml FLUSH ASDIRECTED PRN PRN Reason: Keep Vein Open Discontinued Medications Aspirin (Aspirin) 325 mg PO ONETIME ONE Stop: 03/08/20 03:34 Last Admin: 03/08/20 03:51 Dose: 325 mg Documented by: Diltiazem HCl (Cardizem Cd) 240 mg PO DAILY STA Stop: 03/08/20 08:48 Last Admin: 03/08/20 09:14 Dose: 240 mg Documented by: Sodium Chloride (Normal Saline) 1,000 mls @ 999 mls/hr IV .Bolus ONE Stop: 03/07/20 22:16 Last Admin: 03/07/20 22:11 Dose: 999 mls/hr Documented by: Ceftriaxone Sodium/Dextrose 2 (gm/ Premix) 50 mls @ 100 mls/hr IV ONETIME ONE Stop: 03/07/20 21:45 Last Admin: 03/07/20 22:11 Dose: 100 mls/hr Documented by: Sodium Chloride (Normal Saline) 2,000 mls @ 2,000 mls/hr IV BOLUS ONE; Protocol Stop: 03/07/20 23:53 Last Admin: 03/08/20 00:24 Dose: 2,000 mls/hr Documented by: Vancomycin HCl 2,000 gm/ (Sodium Chloride) 250 mls @ 167 mls/hr IV STAT ONE Stop: 03/08/20 00:23 Last Admin: 03/08/20 00:01 Dose: 167 mls/hr Documented by: Sodium Chloride (Normal Saline) Confirm Administered Dose 50 mls @ as directed .ROUTE .STK-MED ONE Stop: 03/09/20 12:06 Vancomycin HCl 2 gm/ Premix 400 mls @ as directed IV .STK-MED ONE Stop: 03/07/20 22:55 Iopamidol (Isovue-370 (76%)) 100 ml IVPUSH ONETIME ONE Stop: 03/08/20 02:01 Last Admin: 03/08/20 02:00 Dose: 100 ml Documented by: Labetalol HCl (Normodyne) 10 mg IVPUSH ONETIME ONE; Protocol Stop: 03/08/20 02:24 Last Admin: 03/08/20 03:00 Dose: 10 mg Documented by: Lorazepam (Ativan) 1 mg IVPUSH ONETIME ONE Stop: 03/08/20 09:18 Last Admin: 03/08/20 09:49 Dose: 1 mg Documented by: Lorazepam (Ativan) 1 mg PO Q6H [facility] Last Admin: 03/09/20 02:47 Dose: 1 mg Documented by: Metoprolol Tartrate (Lopressor) 25 mg PO ONETIME ONE Stop: 03/08/20 03:34 Last Admin: 03/08/20 03:50 Dose: Not Given Documented by: Non-Formulary Medication (Hydrocodone/Acetaminophen) 1 tab PO 6XDAY PRN PRN Reason: Pain Potassium Chloride (Klor-Con 10) 40 meq PO ONETIME ONE Stop: 03/08/20 10:39 Last Admin: 03/08/20 12:22 Dose: 40 meq Documented by: Potassium Chloride (Klor-Con M20) 40 meq PO ONETIME ONE Stop: 03/10/20 07:56 Last Admin: 03/10/20 08:25 Dose: 40 meq Documented by: Potassium Chloride (Klor-Con M20) 40 meq PO ONETIME ONE Stop: 03/10/20 11:31 Last Admin: 03/10/20 11:55 Dose: 40 meq Documented by: Prochlorperazine Edisylate (Compazine) 10 mg IVPUSH ONETIME ONE Stop: 03/07/20 21:33 Last Admin: 03/07/20 22:11 Dose: 10 mg Documented by: Prochlorperazine Edisylate (Compazine) 10 mg IVPUSH ONETIME ONE Stop: 03/08/20 01:24 Last Admin: 03/08/20 01:29 Dose: 10 mg Documented by: Sodium Chloride (Saline Flush) 2.5 ml FLUSH ASDIRECTED PRN PRN Reason: Keep Vein Open Sodium Chloride (Saline Flush) 10 ml FLUSH ASDIRECTED PRN PRN Reason: Keep Vein Open Sodium Chloride (Saline Flush) 10 ml FLUSH ASDIRECTED PRN PRN Reason: Keep Vein Open Sodium Chloride (Saline Flush) 2.5 ml FLUSH ASDIRECTED PRN PRN Reason: Keep Vein Open Last Admin: 03/08/20 09:51 Dose: 2.5 ml Documented by:
== END 2020-03-10 12:55 | disposition home health service (06) | DRG 871 ==
LOC: MW.ED 20:17 → MW.ICU 03-08 00:42 → MW.MS 03-09 23:42
PROVIDERS: ADMIT Internal Medicine; ATTEND Internal Medicine
DX: A41.9 Sepsis, unspecified organism (principal); J69.0 Pneumonitis due to inhalation of food and vomit; F13.239 Sedative, hypnotic or anxiolytic dependence with withdrawal, unspecified; I48.19 Other persistent atrial fibrillation; G93.40 Encephalopathy, unspecified; I16.0 Hypertensive urgency; Z20.828 Contact with and (suspected) exposure to other viral communicable diseases; E78.5 Hyperlipidemia, unspecified; G93.41 Metabolic encephalopathy; F41.9 Anxiety disorder, unspecified; R79.89 Other specified abnormal findings of blood chemistry; R56.9 Unspecified convulsions; Z96.649 Presence of unspecified artificial hip joint; Z96.659 Presence of unspecified artificial knee joint; F31.9 Bipolar disorder, unspecified; R41.0 Disorientation, unspecified; G89.29 Other chronic pain; I48.91 Unspecified atrial fibrillation; E78.00 Pure hypercholesterolemia, unspecified; J30.9 Allergic rhinitis, unspecified; I10 Essential (primary) hypertension; J84.10 Pulmonary fibrosis, unspecified; R15.9 Full incontinence of feces; R32 Unspecified urinary incontinence; I25.10 Atherosclerotic heart disease of native coronary artery without angina pectoris; J44.9 Chronic obstructive pulmonary disease, unspecified; E66.9 Obesity, unspecified; K21.9 Gastro-esophageal reflux disease without esophagitis; M19.90 Unspecified osteoarthritis, unspecified site; M81.0 Age-related osteoporosis without current pathological fracture; Z90.49 Acquired absence of other specified parts of digestive tract; Z98.49 Cataract extraction status, unspecified eye; Z86.73 Personal history of transient ischemic attack (TIA), and cerebral infarction without residual deficits; M54.9 Dorsalgia, unspecified; M79.661 Pain in right lower leg; F32.9 Major depressive disorder, single episode, unspecified; Z86.79 Personal history of other diseases of the circulatory system; Z88.6 Allergy status to analgesic agent; Z88.4 Allergy status to anesthetic agent; Z99.3 Dependence on wheelchair; Z95.0 Presence of cardiac pacemaker; Z68.29 Body mass index [BMI] 29.0-29.9, adult; Z88.5 Allergy status to narcotic agent; Z88.8 Allergy status to other drugs, medicaments and biological substances; Z79.01 Long term (current) use of anticoagulants; Z79.899 Other long term (current) drug therapy
CPT/HCPCS: 36415; 70450; 71045; 80053; 80305; 80307; 81001; 83605; 83735; 84484; 85025; 85610; 85730; 87040 ×2; 93005; 96365; 96367; 96375; 99291; J0696; J0780; J3370 ×2; J7030 ×2; J7050; U0002; 71260; 71260-26; 74177; 74177-26; 80048; 84132; 93010; 99222; 99232; 99238; 99284; A9270-GY; C9113; J2060; J2405; J2543; J3490; Q9967

== ENCOUNTER 2020-04-17 10:54 | Emergency (ER) | payer MEDICARE, MEDICAID ==
[2020-04-17] MEDS ORDERED: Sodium Chloride 0.9% 10 ML Syringe FLUSH PRN (10:56)
[2020-04-17] MEDS ORDERED: Sodium Chloride 0.9% 2.5 ML Syringe FLUSH PRN (10:56)
--- NOTE | 2020-04-17 11:01 | PCM.SN.2 ---
- Free Text/Narrative Note: 12-Lead ECG Interpretation Acquired: 10:52 AM Rhythm: Paced atrial rhythm Rate: 74 bpm Wilson: Normal Intervals: Normal Ectopy: None RV Strain: No obvious RV strain pattern. ST Segments/T-Waves: No notable changes Acute Ischemic Changes: None apparent Interpretation: No STEMI
--- NOTE | 2020-04-17 11:41 | CR ---
Indication: Altered mental status Comparison: Single view chest March 08, 2020 Technique: Single AP view chest Findings: There is hyperinflation and chronic interstitial change. There is no focal consolidation, effusion, or pneumothorax. Stable cardiac silhouette with dual-chamber pacer. The bony thorax is grossly intact. Impression: Hyperinflation and chronic interstitial changes with mildly increased interstitial prominence likely representing pulmonary edema. Dictated by Charan Mccabe MD @ Apr 17 2020 11:38AM (Electronically Signed)
[2020-04-17 11:52] LABS: ACETAMINOPHEN <2.0 ug/mL
[2020-04-17 12:02] LABS: BLOOD UREA NITROGEN,BUN 14 mg/dL (7.0-18.0); CHLORIDE,CL 107 mmol/L (98-107); GLUCOSE RANDOM 100 mg/dL (74-106); POTASSIUM,K 3.6 mmol/L (3.5-5.1); SODIUM,NA 141 mmol/L (136-145)
--- NOTE | 2020-04-17 12:06 | EDM.PDOC ---
ED HPI GENERAL MEDICAL PROBLEM - General Chief Complaint: General Stated Complaint: EMS ARRIVAL Time Seen by Provider: 04/17/20 10:55 Source of Information: Reports: Patient, EMS History Limitations: Reports: Altered Mental Status - History of Present Illness INITIAL COMMENTS - FREE TEXT/NARRATIVE: HISTORY AND PHYSICAL: History of present illness: Patient is a 70-year-old female who presents to the emergency room today via EMS for concern of confusion/altered mental status. Per EMS, the family member that called 911 noted that patient "took too much of her pain medication" and has been more drowsy since last night. Per EMS, patient took an additional tramadol that they were told by family member. Upon arrival, patient is drowsy but aware of person, place but confused on time/situation and falls asleep on my exam but arousable to calling her name loudly. Patient is maintaining airway and arousable. Patient has no complaints at this time. Patient has a history of pr ior ischemic stroke, atrial fibrillation on epixiban, htn, hyperlipidemia, and s/p pacemaker. Review of systems: As per history of present illness and below otherwise all systems reviewed and negative. Past medical history: As per history of present illness and as reviewed below otherwise noncontributory. Surgical history: As per history of present illness and as reviewed below otherwise non contributory. Social history: See social history for further information Family history: As per history of present illness and as reviewed below otherwise noncontributory. Physical exam: General: Patient is in no acute distress. Patient laying comfortably on exam table, drowsy but arousable. Alert to person, place but confused on time/situation. Vitals stable and reviewed by me. HEENT: Atraumatic, normocephalic, pupils equal and reactive bilaterally, negative for conjunctival pallor or scleral icterus, mucous membranes moist, TMs normal bilaterally, throat clear, neck supple, nontender, trachea midline. No drooling or trismus noted. No meningeal signs. No hot potato voice noted. Lungs: Wheezing to lung bases to auscultation, breath sounds equal bilaterally, chest nontender. Heart: S1S2, regular rate and rhythm without overt murmur Abdomen: There is a healing yellow/purple bruise of the right sided soft tissue of the abdomen. Otherwise, Soft, nondistended, nontender. Negative for masses or hepatosplenomegaly. Negative for costovertebral tenderness. Pelvis: Stable nontender. Genitourinary: Deferred. Rectal: Deferred. Skin: Intact, warm, dry. No lesions or rashes noted. Extremities: Atraumatic, negative for cords or calf pain. Neurovascular unremarkable. Neuro: GCS 13. Drowsy but arousable. oriented to person, place, but confused on time/situation. Cranial nerves II through XII unremarkable. Notes: GCS 13. Patient is vitally stable with O2 on RA 93-95%. I initially tried to get a hold of family upon patient arrival to receive a better history of present illness but family did not answer my phone call. I have been made aware that there is a delay in obtaining a CT scan for patient due to current status of the ED. Patient remains vitally stable, arousable, but confused. 14:40: I was finally able to get a hold of patients son, Richard Collins who states that she ran out of her lorazepam RX on Friday (April 12) and the following day, patient was shaking. He states he went to the pharmacy on Friday (April 15) and was instructed she could not get a refill of her lorazepam until today (Friday) and patient took meclizine to help with symptoms. Richard states that she began getting confused last night and did have several falls last night from her chair. He does state that patient "often messes up" her pills when she organizes them into her pill container and has overdosed her pain medication accidentally in the past. He denies her ever having suicidal ideations. He states that per her baseline, she requires assist with pivot transferring and gets around with an electric wheelchair. He states that this morning she had another fall and so he called the ambulance to bring her to the ER. By definition, patient would meet trauma criteria as she is on blood thinning medication, however, at this point, information about her falling was revealed late into the course of workup/evaluation. At this time, I did get Dr. Millan involved and imaging of the cervical spine and pelvic XR was performed due to this added information that was not made aware when patient originally came to the ED. A small dose of Narcan given to patient without change of confusion. 15:[address] scan of the head shows concerns for lateral ventricle dilation/normal pressure hydrocephalus but makes no comparison to prior head CT scans. I did call and speak to the radiologist, Dr. Travis Cantu and he reviewed prior head CT scan and reports no acute change in this and made addendum to his report. Dr. Borrego, hospitalist lion tamer, consulted on patient and will admit to observation telemetry. I suspect that patients AMS/confusion is related to her opioid mismanagement at home. A second small dose of Narcan was given and patient. After giving a second dose of naloxone, I reexamined the patient and she is now awake and alert and does not want to be admitted to the hospital requesting discharge from the ED. She has no complaints at this time upon reevaluation. She is alert, orientated, and in no acute distress. Her son, Richard was contacted and has agreed to come pick patient up and bring her home as she is unable to ambulate as her baseline mobility is with a wheelchair. Patient left the ED against medical advice. Diagnostics: EKG, CBC, CMP, UA, UDS, CXR, Trop, BNP, Salicylate, TSH, Mg, Acetaminophen, UDS, head CT, cervical spine CT, pelvic XR, PT/INR, PTT Therapeutics: Saline lock, Narcan Prescription: Narcan Impression: Altered mental status, improved Medication misuse Left against medical advice Plan: Patient left the ED against medical advice Definitive disposition and diagnosis as appropriate pending reevaluation and review of above. - Related Data Allergies Allergy/AdvReac Type Severity Reaction Status Date / Time codeine Allergy Intermediate Airway Verified 04/17/20 10:55 Tightness meperidine HCl [From Demerol] Allergy Intermediate Airway Verified 04/17/20 10:55 Tightness morphine Allergy Intermediate Airway Verified 04/17/20 10:55 Tightness oxycodone [Oxycodone] Allergy Intermediate Airway Verified 04/17/20 10:55 Tightness lidocaine Allergy Anaphylactic Verified 04/17/20 10:55 Shock orphenadrine Allergy Airway Verified 04/17/20 10:55 Tightness varenicline tartrate Allergy Airway Verified 04/17/20 10:55 [From Chantix] Tightness Home Meds: Home Meds DULoxetine HCl [Duloxetine HCl] 120 mg PO DAILY 12/22/13 [History] Apixaban [Eliquis] 5 mg PO BID 08/14/15 [History] Esomeprazole [NexIUM] 40 mg PO DAILY 08/21/17 [History] Olmesartan Medoxomil 40 mg PO DAILY 09/07/19 [History] Albuterol/Ipratropium [Combivent Respimat] 1 inhalation PO QID PRN 02/02/20 [History] Escitalopram [Lexapro] 10 mg PO DAILY 02/02/20 [History] Furosemide 20 mg PO DAILY 02/02/20 [History] Gabapentin [Neurontin] 600 mg PO TID 02/02/20 [History] Levalbuterol Tartrate [Xopenex HFA] 2 inhalation PO Q4H PRN 02/02/20 [History] Diclofenac Sodium 1 applic TOP QID PRN 02/23/20 [History] dilTIAZem HCL [Diltiazem 24Hr ER] 240 mg PO DAILY 02/23/20 [History] hydrOXYzine pamoate [Hydroxyzine Pamoate] 25 mg PO TID PRN 02/23/20 [History] Collagenase [Santyl Oint] 1 applic TP ASDIRECTED PRN 03/08/20 [History] Fluconazole 150 mg PO Q3D PRN 03/08/20 [History] Hydrocodone/Acetaminophen [Hydrocodone-Acetamin 10-325 mg] 1 tab PO 6XDAY PRN 03/08/20 [History] Amoxicillin/Clavulanate K [Augmentin 875-125 MG] 1 tab PO BID #7 tablet 03/10/20 [Rx] LORazepam [Ativan] 1 mg PO BID tablet 03/10/20 [Rx] Naloxone HCl [Narcan] 4 mg NS ONETIME PRN #1 spray 04/17/20 [Rx] Past Medical History HEENT History: Reports: Allergic Rhinitis, Impaired Vision, Other (See Below) Other HEENT History: wears reading glasses Cardiovascular History: Reports: Afib, High Cholesterol, Hypertension Respiratory History: Reports: Bronchitis, Recurrent, COPD, SOB, Other (See Below) Other Respiratory History: was tested for sleep apnea last week, no results yet Gastrointestinal History: Reports: Cholelithiasis, GERD Genitourinary History: Reports: None 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 No residual weakness, no intervention done except physical therapy Psychiatric History: Reports: Bipolar, Depression Endocrine/Metabolic History: Reports: Obesity/BMI 30+, Other (See Below) Other Endocrine/Metabolic History: states has 2 "lumps" on thyroid as noted on ultrasound Insulin Pump Model and Discharge Door Operator: None Hematologic History: Reports: None Immunologic History: Reports: None Oncologic (Cancer) History: Reports: None Dermatologic History: Reports: None - Infectious Disease History Infectious Disease History: Reports: Measles - Past Surgical History Head Surgeries/Procedures: Reports: None HEENT Surgical History: Reports: Cataract Surgery Cardiovascular Surgical History: Reports: Pacer Respiratory Surgical History: Reports: None GI Surgical History: Reports: Bariatric Procedure, Cholecystectomy Female Surgical History: Reports: None Endocrine Surgical History: Reports: None Neurological Surgical History: Reports: None Musculoskeletal Surgical History: Reports: Hip Replacement, Knee Replacement, ORIF Other Musculoskeletal Surgeries/Procedures:: states has hip surgery x11 Social & Family History - Family History Family Medical History: No Pertinent Family History HEENT: Reports: Other (See Below) - Tobacco Use Tobacco Use Status *Q: Unknown Ever Used Tobacco - Caffeine Use Caffeine Use: Reports: Coffee Caffeine Use Comment: Unable to obtain. Pt is falling in and out of sleep, and is groggy. ED ROS GENERAL - Review of Systems Review Of Systems: Comprehensive ROS is negative, except as noted in HPI. ED EXAM, GENERAL - Physical Exam Exam: See Below (see dictation) Course - Vital Signs Last Recorded V/S: Last Vital Signs Temp 96.4 F L 04/17/20 10:57 Pulse 61 04/17/20 14:54 Resp 15 04/17/20 10:57 BP 115/80 04/17/20 14:54 Pulse Ox 94 L 04/17/20 14:54 - Orders/Labs/Meds Orders: Active Orders 24 hr Category Date Time Status Admission Status [Patient Status] [ADT] Stat ADT 04/17/20 16:54 Active Cardiac Monitoring [RC] . DIRECTED Care 04/17/20 10:56 Active Communication Order [RC] STAT Care 04/17/20 14:24 Active EKG Documentation Completion [RC] STAT Care 04/17/20 10:57 Active Glucose [Blood Glucose Check, Bedside] [RC] ONETIME Care 04/17/20 11:09 Active Neuro Check [RC] Q3HR Care 04/17/20 17:09 Active Vital Signs [RC] Q3H Care 04/17/20 17:12 Active LORazepam [Ativan] Med 04/17/20 17:10 Active 1 mg IVPUSH Q4H PRN Sodium Chloride 0.9% [Saline Flush] Med 04/17/20 10:56 Active 10 ml FLUSH ASDIRECTED PRN Sodium Chloride 0.9% [Saline Flush] Med 04/17/20 10:56 Active 2.5 ml FLUSH ASDIRECTED PRN Saline Lock Insert [OM.PC] Stat Oth 04/17/20 10:56 Ordered Medication Orders Lorazepam (Ativan) 1 mg IVPUSH Q4H PRN PRN Reason: Agitation/Anxiety Sodium Chloride (Saline Flush) 2.5 ml FLUSH ASDIRECTED PRN PRN Reason: Keep Vein Open Last Admin: 04/17/20 11:56 Dose: 2.5 ml Documented by: GABRIELLA Sodium Chloride (Saline Flush) 10 ml FLUSH ASDIRECTED PRN PRN Reason: Keep Vein Open Last Admin: 04/17/20 11:56 Dose: 10 ml Documented by: GABRIELLA Labs: Laboratory Tests 04/17/20 04/17/20 04/17/20 Range/Units 10:47 10:47 10:47 WBC 9.47 (4.0-11.0) K/uL RBC 3.88 L (4.30-5.90) M/uL Hgb 11.9 L (12.0-16.0) g/dL Hct 37.6 (36.0-46.0) % MCV 96.9 (80.0-98.0) fL MCH 30.7 (27.0-32.0) pg MCHC 31.6 (31.0-37.0) g/dL RDW Std Deviation 51.0 (28.0-62.0) fl RDW Coeff of Brittny 14 (11.0-15.0) % Plt Count 233 (150-400) K/uL MPV 12.30 H (7.40-12.00) fL Neut % (Auto) 67.6 (48.0-80.0) % Lymph % (Auto) 22.9 (16.0-40.0) % [place] % (Auto) 7.9 (0.0-15.0) % Eos % (Auto) 1.4 (0.0-7.0) % Baso % (Auto) 0.2 (0.0-1.5) % Neut # (Auto) 6.4 H (1.4-5.7) K/uL Lymph # (Auto) 2.2 (0.6-2.4) K/uL [place] # (Auto) 0.8 (0.0-0.8) K/uL Eos # (Auto) 0.1 (0.0-0.7) K/uL Baso # (Auto) 0.0 (0.0-0.1) K/uL Nucleated RBC % 0.0 /100WBC Nucleated RBCs # 0 K/uL INR APTT (18.6-31.3) SEC VBG pH (7.31-7.41) VBG pCO2 (35-45) mmHG VBG pO2 (30-40) mmHG VBG HCO3 (22-30) mEq/L VBG Total CO2 (41-51) mmol/L VBG Base Excess (-3.0-3.0) Sodium 141 (136-145) mmol/L Potassium 3.6 (3.5-5.1) mmol/L Chloride 107 (98-107) mmol/L Carbon Dioxide 27.0 (21.0-32.0) mmol/L BUN 14 (7.0-18.0) mg/dL Creatinine 0.9 (0.6-1.0) mg/dL Est Cr Clr Drug Dosing TNP Estimated GFR (MDRD) > 60.0 ml/min Glucose 100 (74-106) mg/dL Calcium 8.7 (8.5-10.1) mg/dL Magnesium 2.2 (1.8-2.4) mg/dL Total Bilirubin 0.5 (0.2-1.0) mg/dL AST 34 (15-37) IU/L ALT 26 (14-63) IU/L Alkaline Phosphatase 122 H (46-116) U/L Troponin I < 0.050 (0.000-0.056) ng/mL B-Natriuretic Peptide 17 (<100) PG/ML Total Protein 7.0 (6.4-8.2) g/dL Albumin 3.3 L (3.4-5.0) g/dL Globulin 3.7 (2.6-4.0) g/dL Albumin/Globulin Ratio 0.9 (0.9-1.6) TSH 3rd Generation 0.35 L (0.36-3.74) uIU/mL Urine Color Urine Appearance Urine pH (5.0-8.0) Ur Specific [place] (1.001-1.035) Urine Protein (NEGATIVE) mg/dL Urine Glucose (UA) (NEGATIVE) mg/dL Urine Ketones (NEGATIVE) mg/dL Urine Occult Blood (NEGATIVE) Urine Nitrite (NEGATIVE) Urine Bilirubin (NEGATIVE) Urine Urobilinogen (<2.0) EU/dL Ur Leukocyte Esterase (NEGATIVE) Salicylates 6.9 (0-20) mg/dL Urine Opiates Screen (NEGATIVE) Ur Oxycodone Screen (NEGATIVE) Urine Methadone Screen (NEGATIVE) Acetaminophen <2.0 ug/mL Ur Barbiturates Screen (NEGATIVE) Ur Phencyclidine Scrn (NEGATIVE) Ur Amphetamine Screen (NEGATIVE) U Methamphetamines Scrn (NEGATIVE) U Benzodiazepines Scrn (NEGATIVE) U Cocaine Metab Screen (NEGATIVE) U Marijuana (THC) Screen (NEGATIVE) Ethyl Alcohol 4 mg/dL SARS-CoV-2 RNA (KEI) (NEGATIVE) 04/17/20 04/17/20 04/17/20 Range/Units 13:48 13:48 14:05 WBC (4.0-11.0) K/uL RBC (4.30-5.90) M/uL Hgb (12.0-16.0) g/dL Hct (36.0-46.0) % MCV (80.0-98.0) fL MCH (27.0-32.0) pg MCHC (31.0-37.0) g/dL RDW Std Deviation (28.0-62.0) fl RDW Coeff of Brittny (11.0-15.0) % Plt Count (150-400) K/uL MPV (7.40-12.00) fL Neut % (Auto) (48.0-80.0) % Lymph % (Auto) (16.0-40.0) % [place] % (Auto) (0.0-15.0) % Eos % (Auto) (0.0-7.0) % Baso % (Auto) (0.0-1.5) % Neut # (Auto) (1.4-5.7) K/uL Lymph # (Auto) (0.6-2.4) K/uL [place] # (Auto) (0.0-0.8) K/uL Eos # (Auto) (0.0-0.7) K/uL Baso # (Auto) (0.0-0.1) K/uL Nucleated RBC % /100WBC Nucleated RBCs # K/uL INR APTT (18.6-31.3) SEC VBG pH (7.31-7.41) VBG pCO2 (35-45) mmHG VBG pO2 (30-40) mmHG VBG HCO3 (22-30) mEq/L VBG Total CO2 (41-51) mmol/L VBG Base Excess (-3.0-3.0) Sodium (136-145) mmol/L Potassium (3.5-5.1) mmol/L Chloride (98-107) mmol/L Carbon Dioxide (21.0-32.0) mmol/L BUN (7.0-18.0) mg/dL Creatinine (0.6-1.0) mg/dL Est Cr Clr Drug Dosing Estimated GFR (MDRD) ml/min Glucose (74-106) mg/dL Calcium (8.5-10.1) mg/dL Magnesium (1.8-2.4) mg/dL Total Bilirubin (0.2-1.0) mg/dL AST (15-37) IU/L ALT (14-63) IU/L Alkaline Phosphatase (46-116) U/L Troponin I (0.000-0.056) ng/mL B-Natriuretic Peptide (<100) PG/ML Total Protein (6.4-8.2) g/dL Albumin (3.4-5.0) g/dL Globulin (2.6-4.0) g/dL Albumin/Globulin Ratio (0.9-1.6) TSH 3rd Generation (0.36-3.74) uIU/mL Urine Color YELLOW Urine Appearance CLEAR Urine pH 5.5 (5.0-8.0) Ur Specific [place] >= 1.030 (1.001-1.035) Urine Protein NEGATIVE (NEGATIVE) mg/dL Urine Glucose (UA) NEGATIVE (NEGATIVE) mg/dL Urine Ketones TRACE H (NEGATIVE) mg/dL Urine Occult Blood NEGATIVE (NEGATIVE) Urine Nitrite NEGATIVE (NEGATIVE) Urine Bilirubin NEGATIVE (NEGATIVE) Urine Urobilinogen 0.2 (<2.0) EU/dL Ur Leukocyte Esterase NEGATIVE (NEGATIVE) Salicylates (0-20) mg/dL Urine Opiates Screen POSITIVE (NEGATIVE) Ur Oxycodone Screen NEGATIVE (NEGATIVE) Urine Methadone Screen NEGATIVE (NEGATIVE) Acetaminophen ug/mL Ur Barbiturates Screen NEGATIVE (NEGATIVE) Ur Phencyclidine Scrn NEGATIVE (NEGATIVE) Ur Amphetamine Screen NEGATIVE (NEGATIVE) U Methamphetamines Scrn NEGATIVE (NEGATIVE) U Benzodiazepines Scrn NEGATIVE (NEGATIVE) U Cocaine Metab Screen NEGATIVE (NEGATIVE) U Marijuana (THC) Screen NEGATIVE (NEGATIVE) Ethyl Alcohol mg/dL SARS-CoV-2 RNA (KEI) NEGATIVE (NEGATIVE) 04/17/20 04/17/20 Range/Units 14:46 14:46 WBC (4.0-11.0) K/uL RBC (4.30-5.90) M/uL Hgb (12.0-16.0) g/dL Hct (36.0-46.0) % MCV (80.0-98.0) fL MCH (27.0-32.0) pg MCHC (31.0-37.0) g/dL RDW Std Deviation (28.0-62.0) fl RDW Coeff of Brittny (11.0-15.0) % Plt Count (150-400) K/uL MPV (7.40-12.00) fL Neut % (Auto) (48.0-80.0) % Lymph % (Auto) (16.0-40.0) % [place] % (Auto) (0.0-15.0) % Eos % (Auto) (0.0-7.0) % Baso % (Auto) (0.0-1.5) % Neut # (Auto) (1.4-5.7) K/uL Lymph # (Auto) (0.6-2.4) K/uL [place] # (Auto) (0.0-0.8) K/uL Eos # (Auto) (0.0-0.7) K/uL Baso # (Auto) (0.0-0.1) K/uL Nucleated RBC % /100WBC Nucleated RBCs # K/uL INR 1.11 APTT 33.4 H (18.6-31.3) SEC VBG pH 7.39 (7.31-7.41) VBG pCO2 46 H (35-45) mmHG VBG pO2 34 (30-40) mmHG VBG HCO3 27 (22-30) mEq/L VBG Total CO2 25 L (41-51) mmol/L VBG Base Excess 1.8 (-3.0-3.0) Sodium (136-145) mmol/L Potassium (3.5-5.1) mmol/L Chloride (98-107) mmol/L Carbon Dioxide (21.0-32.0) mmol/L BUN (7.0-18.0) mg/dL Creatinine (0.6-1.0) mg/dL Est Cr Clr Drug Dosing Estimated GFR (MDRD) ml/min Glucose (74-106) mg/dL Calcium (8.5-10.1) mg/dL Magnesium (1.8-2.4) mg/dL Total Bilirubin (0.2-1.0) mg/dL AST (15-37) IU/L ALT (14-63) IU/L Alkaline Phosphatase (46-116) U/L Troponin I (0.000-0.056) ng/mL B-Natriuretic Peptide (<100) PG/ML Total Protein (6.4-8.2) g/dL Albumin (3.4-5.0) g/dL Globulin (2.6-4.0) g/dL Albumin/Globulin Ratio (0.9-1.6) TSH 3rd Generation (0.36-3.74) uIU/mL Urine Color Urine Appearance Urine pH (5.0-8.0) Ur Specific [place] (1.001-1.035) Urine Protein (NEGATIVE) mg/dL Urine Glucose (UA) (NEGATIVE) mg/dL Urine Ketones (NEGATIVE) mg/dL Urine Occult Blood (NEGATIVE) Urine Nitrite (NEGATIVE) Urine Bilirubin (NEGATIVE) Urine Urobilinogen (<2.0) EU/dL Ur Leukocyte Esterase (NEGATIVE) Salicylates (0-20) mg/dL Urine Opiates Screen (NEGATIVE) Ur Oxycodone Screen (NEGATIVE) Urine Methadone Screen (NEGATIVE) Acetaminophen ug/mL Ur Barbiturates Screen (NEGATIVE) Ur Phencyclidine Scrn (NEGATIVE) Ur Amphetamine Screen (NEGATIVE) U Methamphetamines Scrn (NEGATIVE) U Benzodiazepines Scrn (NEGATIVE) U Cocaine Metab Screen (NEGATIVE) U Marijuana (THC) Screen (NEGATIVE) Ethyl Alcohol mg/dL SARS-CoV-2 RNA (KEI) (NEGATIVE) Meds: Medications Generic Name Dose Route Start Last Admin Trade Name Freq PRN Reason Stop Dose Admin Lorazepam 1 mg 04/17/20 17:10 Ativan IVPUSH Q4H PRN Agitation/Anxiety Sodium Chloride 2.5 ml 04/17/20 10:56 04/17/20 11:56 Saline Flush FLUSH 2.5 ml ASDIRECTED PRN Administration Keep Vein Open Sodium Chloride 10 ml 04/17/20 10:56 04/17/20 11:56 Saline Flush FLUSH 10 ml ASDIRECTED PRN Administration Keep Vein Open Discontinued Medications Generic Name Dose Route Start Last Admin Trade Name Freq PRN Reason Stop Dose Admin Naloxone HCl 0.04 mg 04/17/20 15:13 04/17/20 15:33 Narcan IVPUSH 04/17/20 15:14 0.04 mg ONETIME ONE Administration Naloxone HCl 0.04 mg 04/17/20 16:42 04/17/20 17:03 Narcan IVPUSH 04/17/20 16:43 0.04 mg ONETIME ONE Administration Departure - Departure Time of Disposition: 18:12 Disposition: Against Medical Advice 07 Clinical Impression: Misuse of medication, Left against medical advice Altered mental status Qualifiers: Altered mental status type: unspecified Qualified Code(s): R41.82 - Altered mental status, unspecified - Discharge Information Prescriptions: Naloxone HCl [Narcan] 4 mg NS ONETIME PRN #1 spray PRN Reason: Oversedation Referrals: PCP,None [Primary Care Provider] - Forms: ED Department Discharge Additional Instructions: Patient left ED AMA but was discharged with RX for Narcan and instructions for using Narcan Sepsis Event Note (ED) - Evaluation Sepsis Screening Result: No Definite Risk - Focused Exam Vital Signs: Vital Signs Temp Pulse Resp BP Pulse Ox 04/17/20 14:54 61 115/80 94 L 04/17/20 14:24 60 174/80 H 93 L 04/17/20 13:54 84 177/80 H 93 L 04/17/20 13:39 60 184/84 H 93 L 04/17/20 13:09 60 175/81 H 94 L 04/17/20 12:54 60 178/83 H 92 L 04/17/20 12:39 60 178/83 H 92 L 04/17/20 10:57 96.4 F L 63 15 164/90 H 96 - My Orders Last 24 Hours: My Active Orders 04/17/20 10:56 Cardiac Monitoring [RC] . DIRECTED Sodium Chloride 0.9% [Saline Flush] 10 ml FLUSH ASDIRECTED PRN Sodium Chloride 0.9% [Saline Flush] 2.5 ml FLUSH ASDIRECTED PRN Saline Lock Insert [OM.PC] Stat 04/17/20 10:57 EKG Documentation Completion [RC] STAT 04/17/20 11:09 Glucose [Blood Glucose Check, Bedside] [RC] ONETIME 04/17/20 14:24 Communication Order [RC] STAT 04/17/20 16:54 Admission Status [Patient Status] [ADT] Stat - Assessment/Plan Last 24 Hours: My Active Orders 04/17/20 10:56 Cardiac Monitoring [RC] . DIRECTED Sodium Chloride 0.9% [Saline Flush] 10 ml FLUSH ASDIRECTED PRN Sodium Chloride 0.9% [Saline Flush] 2.5 ml FLUSH ASDIRECTED PRN Saline Lock Insert [OM.PC] Stat 04/17/20 10:57 EKG Documentation Completion [RC] STAT 04/17/20 11:09 Glucose [Blood Glucose Check, Bedside] [RC] ONETIME 04/17/20 14:24 Communication Order [RC] STAT 04/17/20 16:54 Admission Status [Patient Status] [ADT] Stat
[2020-04-17] MEDS ORDERED: Naloxone 0.4 MG/ML Syringe IVPUSH ONE ×2 (15:13→16:42)
--- NOTE | 2020-04-17 15:29 | CT ---
INDICATION: Altered mental status COMPARISON: None TECHNIQUE: CT examination of the head was performed as axial sections without intravenous contrast. Images were obtained from the vertex of the skull through the skull base. Please note that all CT scans at this facility use dose modulation, iterative reconstruction, and/or weight-based dosing when appropriate to reduce radiation dose to as low as reasonably achievable. FINDINGS: The brain shows no sign of mass lesion, mass effect, hemorrhage, or edema. There are involutional changes. There is mild cortical atrophy and there is mild white matter disease. The ventricles are dilated out of proportion to cortical atrophy. There is also ballooning of the lateral ventricle as best seen on the coronal imaging. The findings probably represent a normal pressure hydrocephalus pattern which should be considered in the appropriate clinical setting The visualized portions of the orbits are normal in appearance. The osseous structures are normal in appearance with no sign of abnormality in the skull base or calvarium. IMPRESSION: Involutional changes. Dilated ventricles especially lateral ventricles and 3rd ventricle. The 4th ventricle was not dilated. The findings are probably related to a normal pressure hydrocephalus pattern which should be considered in the appropriate clinical setting. Please note that all CT scans at this facility use dose modulation, iterative reconstruction, and/or weight-based dosing when appropriate to reduce radiation dose to as low as reasonably achievable. Dictated by Travis Cantu MD @ Apr 17 2020 3:25PM (Electronically Signed)
--- NOTE | 2020-04-17 15:56 | PCM.SN.2 ---
- Free Text/Narrative Note: The patient was presented to me by the [facility]-level provider, who sees patients independently as a licensed independent practitioner by [facility] and [facility] law. Up until the time that I was consulted and assumed supervision, the mid-level provider had been solely and independently caring for this patient and they were responsible for all aspects of care including performing the history and physical, formulating medical decision making, ordering medications, and ordering and evaluating testing. I have personally and independently seen and evaluated the patient at bedside and, if available, have spoken with the with the family. I agree with the history, physical, medical decision making, and plan of treatment as documented by the mid-level provider. I have performed the medical decision making for this patient, including assessing the results of all diagnostic testing and I have instructed the mid-level provider to document the results and carry through with the treatment plan that I deemed appropriate. If needed, any other comments, a focused physical examination, or my own medical decision making are documented below. In brief, this is a 70-year-old female with a past medical history of ischemic stroke with unknown presence deficits, atrial fibrillation on apixaban, hypertension, hyperlipidemia, pacemaker placement presenting with altered mental status. She was brought into the emergency department by her family with reports of 2 days of altered mental status. Family reports that she ran out of her prescribed lorazepam on 14 April. She is continue to take tramadol. Family is concerned that she may have taken too much of her prescribed pain or benzodiazepine medications. She reportedly took 2 doses of her tramadol and 2 doses of lorazepam today. She initially told the physician medical staff assistant that she ran out of her lorazepam but she told me that her son refilled her prescription today and she took 2 of her lorazepam tablets. There is also some report of several falls over the when this happened or the circumstances behind falls is not entirely clear. On my examination, the patient is drowsy and initially disoriented to place, city, and time. She is able to wake up with painful stimulation to the shoulder and becomes more oriented with a few minutes of conversation. She was then able to correctly answer my questions about orientation. She states that she is fallen several times but she cannot really describe what happened. She states that she took her tramadol and her lorazepam today. She denies using any illicit drugs or taking any alcohol. She quickly falls asleep when she is not engaged in conversation. Vital signs show hypertension and mildly low SPO2 readings. Twelve-lead EKG is nonischemic. Lab work-up shows normocytic anemia, normal white count and platelet count. APTT is elevated at 33.4, INR is 1.11. Venous blood gas shows normal PO2. pH is normal. Metabolic panel shows normal electrolytes and renal function. Alkaline phosphatase 122, negative troponin, negative BNP, TSH is low at 0.35 but the patient does not display signs of thyrotoxicosis. Urinalysis shows trace ketones but no blood or evidence of infection. Salicylate 6.9, acetaminophen undetectably low, urine drug screen positive for opiates. Ethyl alcohol is 4, COVID-19 test is negative. We did obtain a head CT which the radiologist initially was concern for normal pressure hydrocephalus with dilated lateral ventricles. We did have them compare this to a prior head CT from 08 March and noted that the ventricular dilation is actually improved today and does not look any worse. I have low suspicion for NPH given the rather sudden onset of altered mental status over a 2-day history with an improved head CT. We are going to obtain a cervical spine CT along with x-rays of the chest and pelvis given the unclear history of falls in the past. We are also going to give some naloxone to see if her mental status will improve. 4:40 PM: Cervical spine CT was somewhat degraded due to motion artifact at the level of C4-5, noted preserved cervical lordosis and moderate degenerative disc disease, otherwise no obvious findings of definitive displaced fracture. The patient denies any pain. Head CT shows dilated ventricles which are unchanged from prior CT on March 07, 2020 along with involutional changes, no acute findings. Chest x-ray shows hyperinflation and chronic interstitial changes with possible pulmonary edema but no evidence of any acute traumatic findings. Pelvis x-ray read is pending. 5:25 PM: Pelvis x-ray shows no abnormalities. After giving a second dose of naloxone, the patient is now awake and alert and does not want to be admitted to the hospital. I am suspicious that her altered mental status was due to opioid use. We will reevaluate the patient and see if she is safe to discharge home. 5:30 PM: I reevaluated the patient. She is more awake and alert and has no medical complaints. She is much more alert after receiving naloxone and I believe that she may have taken too much of her opioid pain medication. She has no medical complaints and does not work any further work-up, does not want to be admitted to the hospital and she wants to go home. We are going to call her relatives to see if they can come get her because she normally uses a wheelchair. She was discharged in good condition with family.
--- NOTE | 2020-04-17 16:32 | CT ---
Indication: Neck pain Technique: Volumetric multidetector CT images of the cervical spine were obtained without the administration of IV contrast. Comparison: None available. Findings: The cervical vertebral body heights are grossly preserved with minimal endplate Schmorl`s defect of the superior C7 endplate. Evaluation of the C4 anterior vertebral body is limited due to focal motion artifact at this level. Otherwise, the vertebral body heights are grossly unremarkable. There is preserved cervical lordosis without significant spondylolisthesis. There is mild to moderate degenerative disc disease with disc height loss and marginal osteophyte formation. There is no significant spinal canal stenosis or neural foraminal narrowing. The facets are well inverted with motion artifact limiting evaluation of the C4 and C5 levels. The paraspinous soft tissues are grossly within normal limits. Impression: Exam is somewhat limited due to motion artifact limiting evaluation of the C4 and C5 levels. Otherwise mild degenerative changes are appreciated without evidence of definite, displaced fracture. Please note that all CT scans at this facility use dose modulation, iterative reconstruction, and/or weight-based dosing when appropriate to reduce radiation dose to as low as reasonably achievable. Dictated by Charan Mccabe MD @ Apr 17 2020 4:25PM Signed by Dr. Charan Mccabe @ Apr 17 2020 4:31PM
--- NOTE | 2020-04-17 16:39 | CR ---
Indication: Pain Technique: Frontal view of the pelvis and proximal right femur Comparison: February 23, 2020 Findings: Bones: Osteopenia. There is absence of the anterolateral aspect of the right iliac wing, unchanged. Alignment is normal. No fractures or bone lesions. Joint spaces: Status post right hip arthroplasty. Cerclage wires encircle the long-stem femoral component. No hardware complication identified. Soft tissues: Unremarkable. Impression: No acute abnormality. 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 Status post right hip arthroplasty without evidence for hardware complication. Dictated by Binta Niño MD @ Apr 17 2020 4:36PM Signed by Dr. Binta Niño @ Apr 17 2020 4:36PM
[2020-04-17] MEDS ORDERED: LORazepam 2 MG/ML SDV IVPUSH PRN (17:10)
[2020-04-17 19:22] VITALS: BP 173/69; PULSE 60
== END 2020-04-17 18:11 | disposition left against medical advice (07) ==
LOC: MW.ED 10:54 → MW.MS 16:54 → UNDOADMOB 16:54 → MW.ED 18:10
DX: R41.82 Altered mental status, unspecified (principal); F11.90 Opioid use, unspecified, uncomplicated; I48.91 Unspecified atrial fibrillation; I10 Essential (primary) hypertension; J44.9 Chronic obstructive pulmonary disease, unspecified; K21.9 Gastro-esophageal reflux disease without esophagitis; Z86.73 Personal history of transient ischemic attack (TIA), and cerebral infarction without residual deficits; E66.9 Obesity, unspecified; Z88.5 Allergy status to narcotic agent; Z88.4 Allergy status to anesthetic agent; Z88.8 Allergy status to other drugs, medicaments and biological substances; Z79.01 Long term (current) use of anticoagulants; Z79.899 Other long term (current) drug therapy; Z20.828 Contact with and (suspected) exposure to other viral communicable diseases
CPT/HCPCS: 36415; 70450; 71045; 72125; 72170; 80053; 80305; 80307; 81003; 82803; 83735; 83880; 84443; 84484; 85025; 85610; 85730; 93005; 96374; 96376; 99285; A9270; U0002; 93010

== ENCOUNTER 2020-05-12 16:58 | Observation (INO) | payer MEDICARE, MEDICAID ==
[2020-05-12] MEDS ORDERED: hydrALAZINE 20 MG/ML SDV IVPUSH ONE (17:33)
--- NOTE | 2020-05-12 18:09 | EDM.PDOC ---
ED HPI GENERAL MEDICAL PROBLEM - General Chief Complaint: Skin Complaint Stated Complaint: ITCHING IN LEG Time Seen by Provider: 05/12/20 17:01 Source of Information: Reports: Patient History Limitations: Reports: No Limitations - History of Present Illness INITIAL COMMENTS - FREE TEXT/NARRATIVE: 70-year-old female who presents today for rash to her left lateral extremity. States she saw some bugs and using alcohol again in the shower to clean them off she got out the rash is more itchy denies any pain or drainage from the rash. Patient also reported some chest pain and headaches earlier and states she took her blood pressure meds. On exam patient blood pressure 200/120. Patient denies any urinary symptoms fever chills or shortness of breath. Right Hip Pain Score (Numeric/FACES): 5 - Related Data Allergies Allergy/AdvReac Type Severity Reaction Status Date / Time codeine Allergy Intermediate Airway Verified 04/17/20 10:55 Tightness meperidine HCl [From Demerol] Allergy Intermediate Airway Verified 04/17/20 10:55 Tightness morphine Allergy Intermediate Airway Verified 04/17/20 10:55 Tightness oxycodone [Oxycodone] Allergy Intermediate Airway Verified 04/17/20 10:55 Tightness lidocaine Allergy Anaphylactic Verified 04/17/20 10:55 Shock orphenadrine Allergy Airway Verified 04/17/20 10:55 Tightness varenicline tartrate Allergy Airway Verified 04/17/20 10:55 [From Chantix] Tightness Home Meds: Home Meds DULoxetine HCl [Duloxetine HCl] 120 mg PO DAILY 12/22/13 [History] Apixaban [Eliquis] 5 mg PO BID 08/14/15 [History] Esomeprazole [NexIUM] 40 mg PO DAILY 08/21/17 [History] Olmesartan Medoxomil 40 mg PO DAILY 09/07/19 [History] Albuterol/Ipratropium [Combivent Respimat] 1 inhalation PO QID PRN 02/02/20 [History] Escitalopram [Lexapro] 10 mg PO DAILY 02/02/20 [History] Furosemide 20 mg PO DAILY 02/02/20 [History] Gabapentin [Neurontin] 600 mg PO TID 02/02/20 [History] Levalbuterol Tartrate [Xopenex HFA] 2 inhalation PO Q4H PRN 02/02/20 [History] Diclofenac Sodium 1 applic TOP QID PRN 02/23/20 [History] dilTIAZem HCL [Diltiazem 24Hr ER] 240 mg PO DAILY 02/23/20 [History] hydrOXYzine pamoate [Hydroxyzine Pamoate] 25 mg PO TID PRN 02/23/20 [History] Collagenase [Santyl Oint] 1 applic TP ASDIRECTED PRN 03/08/20 [History] Fluconazole 150 mg PO Q3D PRN 03/08/20 [History] Hydrocodone/Acetaminophen [Hydrocodone-Acetamin 10-325 mg] 1 tab PO 6XDAY PRN 03/08/20 [History] Amoxicillin/Clavulanate K [Augmentin 875-125 MG] 1 tab PO BID #7 tablet 03/10/20 [Rx] LORazepam [Ativan] 1 mg PO BID tablet 03/10/20 [Rx] Naloxone HCl [Narcan] 4 mg NS ONETIME PRN #1 spray 04/17/20 [Rx] Past Medical History HEENT History: Reports: Allergic Rhinitis, Impaired Vision, Other (See Below) Other HEENT History: wears reading glasses Cardiovascular History: Reports: Afib, High Cholesterol, Hypertension Respiratory History: Reports: Bronchitis, Recurrent, COPD, SOB, Other (See Below) Other Respiratory History: was tested for sleep apnea last week, no results yet Gastrointestinal History: Reports: Cholelithiasis, GERD Genitourinary History: Reports: None 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 Hematologic History: Reports: None Immunologic History: Reports: None Oncologic (Cancer) History: Reports: None Dermatologic History: Reports: None - Infectious Disease History Infectious Disease History: Reports: Measles - Past Surgical History Head Surgeries/Procedures: Reports: None HEENT Surgical History: Reports: Cataract Surgery Cardiovascular Surgical History: Reports: Pacer Respiratory Surgical History: Reports: None GI Surgical History: Reports: Bariatric Procedure, Cholecystectomy Female Surgical History: Reports: None Endocrine Surgical History: Reports: None Neurological Surgical History: Reports: None Musculoskeletal Surgical History: Reports: Hip Replacement, Knee Replacement, ORIF Other Musculoskeletal Surgeries/Procedures:: states has hip surgery x11 Social & Family History - Family History Family Medical History: No Pertinent Family History HEENT: Reports: Other (See Below) - Caffeine Use Caffeine Use: Reports: Coffee Caffeine Use Comment: Unable to obtain. Pt is falling in and out of sleep, and is groggy. ED ROS GENERAL - Review of Systems Review Of Systems: See Below Constitutional: Reports: No Symptoms HEENT: Reports: No Symptoms Respiratory: Reports: No Symptoms Cardiovascular: Reports: Chest Pain Endocrine: Reports: No Symptoms GI/Abdominal: Reports: No Symptoms : Reports: No Symptoms Musculoskeletal: Reports: No Symptoms Skin: Reports: Rash Neurological: Reports: No Symptoms Psychiatric: Reports: No Symptoms Hematologic/Lymphatic: Reports: No Symptoms Immunologic: Reports: No Symptoms ED EXAM, SKIN/RASH Exam: See Below Exam Limited By: No Limitations General Appearance: Alert Head: Atraumatic Respiratory/Chest: No Respiratory Distress, Lungs Clear, Normal Breath Sounds Cardiovascular: Normal Peripheral Pulses, Regular Rate, Rhythm GI/Abdominal: Normal Bowel Sounds, Soft, Non-Tender, No Distention Back Exam: Normal Inspection, Full Range of Motion, NT Extremities: Normal Inspection, Normal Range of Motion, Non-Tender Neurological: Alert, Oriented, Normal Cognition Skin: Rash #1 Interpretation EKG Date: 05/12/20 Time: 18:02 Rhythm: Other (atrial paced) ST-T: Normal Course - Vital Signs Last Recorded V/S: Last Vital Signs Temp 97.6 F 05/12/20 17:09 Pulse 97 05/12/20 17:09 Resp 18 05/12/20 17:09 BP 208/121 H 05/12/20 17:09 Pulse Ox 97 05/12/20 17:09 - Orders/Labs/Meds Orders: Active Orders 24 hr Category Date Time Status EKG Documentation Completion [RC] STAT Care 05/12/20 17:31 Active Head wo Cont [CT] Stat Exams 05/12/20 18:21 Ordered COVID-19/FLU A+B [MOLEC] Stat Lab 05/12/20 18:20 Received TROPONIN I [CHEM] Stat Lab 05/12/20 20:35 Ordered Labs: Laboratory Tests 05/12/20 05/12/20 05/12/20 Range/Units 17:35 17:35 17:35 WBC 8.80 (4.0-11.0) K/uL RBC 4.53 (4.30-5.90) M/uL Hgb 13.9 (12.0-16.0) g/dL Hct 42.5 (36.0-46.0) % MCV 93.8 (80.0-98.0) fL MCH 30.7 (27.0-32.0) pg MCHC 32.7 (31.0-37.0) g/dL RDW Std Deviation 46.9 (28.0-62.0) fl RDW Coeff of Brittny 14 (11.0-15.0) % Plt Count 256 (150-400) K/uL MPV 12.00 (7.40-12.00) fL Neut % (Auto) 67.9 (48.0-80.0) % Lymph % (Auto) 24.1 (16.0-40.0) % Levy % (Auto) 6.5 (0.0-15.0) % Eos % (Auto) 1.0 (0.0-7.0) % Baso % (Auto) 0.5 (0.0-1.5) % Neut # (Auto) 6.0 H (1.4-5.7) K/uL Lymph # (Auto) 2.1 (0.6-2.4) K/uL Levy # (Auto) 0.6 (0.0-0.8) K/uL Eos # (Auto) 0.1 (0.0-0.7) K/uL Baso # (Auto) 0.0 (0.0-0.1) K/uL Nucleated RBC % 0.0 /100WBC Nucleated RBCs # 0 K/uL INR 1.07 APTT 28.1 (18.6-31.3) SEC Sodium 140 (136-145) mmol/L Potassium 3.4 L (3.5-5.1) mmol/L Chloride 102 (98-107) mmol/L Carbon Dioxide 26.3 (21.0-32.0) mmol/L BUN 13 (7.0-18.0) mg/dL Creatinine 1.0 (0.6-1.0) mg/dL Est Cr Clr Drug Dosing 47.78 mL/min Estimated GFR (MDRD) 55.0 ml/min Glucose 106 (74-106) mg/dL Calcium 9.3 (8.5-10.1) mg/dL Magnesium 2.0 (1.8-2.4) mg/dL Total Bilirubin 0.5 (0.2-1.0) mg/dL AST 19 (15-37) IU/L ALT 22 (14-63) IU/L Alkaline Phosphatase 153 H (46-116) U/L Creatine Kinase 78 (26-308) U/L Troponin I < 0.050 (0.000-0.056) ng/mL Total Protein 7.7 (6.4-8.2) g/dL Albumin 3.8 (3.4-5.0) g/dL Globulin 3.9 (2.6-4.0) g/dL Albumin/Globulin Ratio 1.0 (0.9-1.6) Meds: Medications Discontinued Medications Generic Name Dose Route Start Last Admin Trade Name Freq PRN Reason Stop Dose Admin Hydralazine HCl 10 mg 05/12/20 17:33 05/12/20 17:49 Apresoline IVPUSH 05/12/20 17:34 10 mg ONETIME ONE Administration Departure - Departure Time of Disposition: 18:50 Disposition: Admitted As Inpatient 67 Condition: Good Clinical Impression: ACS (acute coronary syndrome) - Discharge Information *PRESCRIPTION DRUG MONITORING PROGRAM REVIEWED*: Not Applicable *COPY OF PRESCRIPTION DRUG MONITORING REPORT IN PATIENT [place] ROSA: Not Applicable Referrals: PCP,None [Primary Care Provider] - Forms: ED Department Discharge Sepsis Event Note (ED) - Evaluation Sepsis Screening Result: No Definite Risk - Focused Exam Vital Signs: Vital Signs Temp Pulse Resp BP Pulse Ox 05/12/20 17:09 97.6 F 97 18 208/121 H 97 - My Orders Last 24 Hours: My Active Orders 05/12/20 17:31 EKG Documentation Completion [RC] STAT 05/12/20 18:20 COVID-19/FLU A+B [MOLEC] Stat 05/12/20 18:21 Head wo Cont [CT] Stat 05/12/20 20:35 TROPONIN I [CHEM] Stat - Assessment/Plan Last 24 Hours: My Active Orders 05/12/20 17:31 EKG Documentation Completion [RC] STAT 05/12/20 18:20 COVID-19/FLU A+B [MOLEC] Stat 05/12/20 18:21 Head wo Cont [CT] Stat 05/12/20 20:35 TROPONIN I [CHEM] Stat Plan: Pt is a 70-year-old female presents today for rest of the left lateral thigh. The rash looks to be possible bedbugs or insect bite does not look like cellulitis or any infection. Patient did have elevated blood pressure 200/120. Patient also complained some chest pain EKG showed no ischemic changes tropes were negative x1 since patient has a elevated heart score will admit patient to observation for ACS. Spoke to hospitalist and accepted.
[2020-05-12 18:12] LABS: BLOOD UREA NITROGEN,BUN 13 mg/dL (7.0-18.0); CARBON DIOXIDE,CO2 26.3 mmol/L (21.0-32.0); CHLORIDE,CL 102 mmol/L (98-107); GLUCOSE RANDOM 106 mg/dL (74-106); POTASSIUM,K 3.4 mmol/L (3.5-5.1); SODIUM,NA 140 mmol/L (136-145)
--- NOTE | 2020-05-12 18:15 | CR ---
INDICATION: Elevated blood pressure TECHNIQUE: Single view chest. Comparison chest x-ray 04/17/2029 FINDINGS: Stable cardiac silhouette left cardiac pacer. Diffuse prominent interstitial markings likely reflects pulmonary edema. No airspace consolidation. No effusion or pneumothorax. No significant change from the prior study. Dictated by Viri Puri MD @ May 12 2020 6:11PM Signed by Dr. Viri Puri @ May 12 2020 6:13PM
[2020-05-12 19:07] LABS: CORONAVIRUS COVID-19 NAA NEGATIVE (NEGATIVE); INFLUENZA A NAA NEGATIVE (NEGATIVE); INFLUENZA B NAA NEGATIVE (NEGATIVE)
--- NOTE | 2020-05-12 19:39 | CT ---
Indication: Headache vision change Technique: Noncontrast head CT Comparison: Head CT 04/17/2020 Findings : No acute intracranial hemorrhage or mass. No midline shift. The ventricles are dilated out of proportion to cortical atrophy. Lateral ventricles 3rd ventricle appears dilated. Normal 4th ventricle. No midline shift abnormal extra-axial air fluid collections. Paranasal sinuses mastoid air cells skull and scalp appear unremarkable. Impression: No acute intracranial hemorrhage or mass. Lateral ventricles 3rd ventricles are mildly dilated out of portion to cortical atrophy. Findings favored to represent normal-pressure hydrocephalus in the correct clinical setting. Please note that all CT scans at this facility use dose modulation, iterative reconstruction, and/or weight-based dosing when appropriate to reduce radiation dose to as low as reasonably achievable. Dictated by Viri Puri MD @ May 12 2020 7:33PM Signed by Dr. Viri Puri @ May 12 2020 7:38PM
[2020-05-12] MEDS ORDERED: Ondansetron 4 MG Tab.DIS PO PRN (19:40)
[2020-05-12] MEDS ORDERED: Acetaminophen 325 MG Tab PO PRN (19:40)
[2020-05-12] MEDS ORDERED: Furosemide 40 MG/4 ML VIAL IVPUSH ONE (19:50)
[2020-05-12] MEDS ORDERED: Acetaminophen/oxyCODONE 325-10 MG Tab PO ONE (19:52)
[2020-05-12] MEDS ORDERED: Acetaminophen/HYDROcodone 325-10 MG Tab PO ONE (19:56)
--- NOTE | 2020-05-12 20:00 | PCM.HP.2 ---
<Catina Wheeler - Last Filed: 05/12/20 20:09> H&P History of Present Illness - General Date of Service: 05/12/20 Admit Problem/Dx: Admission Diagnosis/Problem Admission Diagnosis/Problem Acute coronary syndrome Source of Information: Patient History Limitations: Reports: No Limitations - History of Present Illness Initial Comments - Free Text/Narative: Patient is a 70-year-old female with history of coronary artery disease, hypertension, depression. Patient came in for chest pain that started yesterday in the afternoon while she was watching TV described as sudden in onset, 8 out of 10 on the pain scale, described as pounding out of her chest. States that the pain is intermittent and episodic. Experienced again this morning, and this afternoon when she came into the ER. Denies any alleviating or aggravating factors. States the pain does not radiate anywhere. Described as mostly substernal. Endorses having a headache, palpitations, dizziness, visual changes associated with chest pain. Otherwise denies any fever, chills, cough, sick contacts, travel, or GI symptoms. Of note patient had significantly elevated blood pressure on admission noted to be 200/120. Was given hydralazine in the ER and blood pressure has improved to 180s over 90. ER course consisted of: EKG, chest x-ray, Covid, flu a and B, troponins, head CT without contrast Right Hip Pain Score (Numeric/FACES): 5 - Related Data Allergies/Adverse Reactions: Allergies Allergy/AdvReac Type Severity Reaction Status Date / Time codeine Allergy Intermediate Airway Verified 05/12/20 21:44 Tightness meperidine HCl [From Demerol] Allergy Intermediate Airway Verified 05/12/20 21:44 Tightness morphine Allergy Intermediate Airway Verified 05/12/20 21:44 Tightness oxycodone [Oxycodone] Allergy Intermediate Airway Verified 05/12/20 21:44 Tightness lidocaine Allergy Anaphylactic Verified 05/12/20 21:44 Shock orphenadrine Allergy Airway Verified 05/12/20 21:44 Tightness varenicline tartrate Allergy Airway Verified 05/12/20 21:44 [From Chantix] Tightness Home Medications: Home Meds DULoxetine HCl [Duloxetine HCl] 120 mg PO DAILY 12/22/13 [History] Apixaban [Eliquis] 5 mg PO BID 08/14/15 [History] Esomeprazole [NexIUM] 40 mg PO DAILY 08/21/17 [History] Olmesartan Medoxomil 40 mg PO DAILY 09/07/19 [History] Albuterol/Ipratropium [Combivent Respimat] 1 inhalation PO QID PRN 02/02/20 [History] Escitalopram [Lexapro] 10 mg PO DAILY 02/02/20 [History] Furosemide 20 mg PO DAILY 02/02/20 [History] Gabapentin [Neurontin] 600 mg PO TID 02/02/20 [History] Levalbuterol Tartrate [Xopenex HFA] 2 inhalation PO Q4H PRN 02/02/20 [History] Diclofenac Sodium 1 applic TOP QID PRN 02/23/20 [History] dilTIAZem HCL [Diltiazem 24Hr ER] 240 mg PO DAILY 02/23/20 [History] hydrOXYzine pamoate [Hydroxyzine Pamoate] 25 mg PO TID PRN 02/23/20 [History] Collagenase [Santyl Oint] 1 applic TP ASDIRECTED PRN 03/08/20 [History] Fluconazole 150 mg PO Q3D PRN 03/08/20 [History] Hydrocodone/Acetaminophen [Hydrocodone-Acetamin 10-325 mg] 1 tab PO 6XDAY PRN 03/08/20 [History] Amoxicillin/Clavulanate K [Augmentin 875-125 MG] 1 tab PO BID #7 tablet 03/10/20 [Rx] LORazepam [Ativan] 1 mg PO BID tablet 03/10/20 [Rx] Naloxone HCl [Narcan] 4 mg NS ONETIME PRN #1 spray 04/17/20 [Rx] Past Medical History HEENT History: Reports: Allergic Rhinitis, Impaired Vision, Other (See Below) Other HEENT History: wears reading glasses Cardiovascular History: Reports: Afib, High Cholesterol, Hypertension Respiratory History: Reports: Bronchitis, Recurrent, COPD, SOB, Other (See Below) Other Respiratory History: was tested for sleep apnea last week, no results yet Gastrointestinal History: Reports: Cholelithiasis, GERD Genitourinary History: Reports: None FIRST SAMPLER History: Reports: None Musculoskeletal History: Reports: Arthritis, Fracture, Osteoporosis Other Musculoskeletal History: states chronic back and right hip pain, hx of fx right wrist and right tib-fib, wheelchair bound due to hip pain and major SOB Neurological History: Reports: TIA Other Neuro History: has has TIA x2, 2009 and 2014. 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: None Hematologic History: Reports: None Immunologic History: Reports: None Oncologic (Cancer) History: Reports: None Dermatologic History: Reports: None - Infectious Disease History Infectious Disease History: Reports: Measles - Past Surgical History Head Surgeries/Procedures: Reports: None HEENT Surgical History: Reports: Cataract Surgery Cardiovascular Surgical History: Reports: Pacer Respiratory Surgical History: Reports: None GI Surgical History: Reports: Bariatric Procedure, Cholecystectomy Female Surgical History: Reports: None Endocrine Surgical History: Reports: None Neurological Surgical History: Reports: None Musculoskeletal Surgical History: Reports: Hip Replacement, Knee Replacement, ORIF Other Musculoskeletal Surgeries/Procedures:: states has hip surgery x11 Social & Family History - Family History Family Medical History: No Pertinent Family History HEENT: Reports: Other (See Below) - Caffeine Use Caffeine Use: Reports: Coffee Caffeine Use Comment: Unable to obtain. Pt is falling in and out of sleep, and is groggy. - Recreational Drug Use Recreational Drug Use: No H&P Review of Systems - Review of Systems: Review Of Systems: See Below General: Reports: No Symptoms HEENT: Reports: Headaches, Visual Changes Pulmonary: Reports: No Symptoms Cardiovascular: Reports: Chest Pain, Palpitations. Denies: Dyspnea on Exertion, Orthopnea, PND, Edema, Syncope, Claudication, Blood Pressure Problem Gastrointestinal: Reports: No Symptoms Genitourinary: Reports: No Symptoms Musculoskeletal: Reports: No Symptoms Skin: Reports: Lesions Psychiatric: Reports: No Symptoms Neurological: Reports: No Symptoms Hematologic/Lymphatic: Reports: No Symptoms Immunologic: Reports: No Symptoms Exam - Exam Exam: See Below - Vital Signs Vital Signs: Last Vital Signs Temp 97.6 F 05/12/20 17:09 Pulse 97 05/12/20 17:09 Resp 18 05/12/20 17:09 BP 208/121 H 05/12/20 17:09 Pulse Ox 97 05/12/20 17:09 Weight: 68.039 kg - Exam Quality Assessment: DVT Prophylaxis General: Alert, Oriented, Cooperative, Mild Distress HEENT: Conjunctiva Clear, EACs Clear, EOMI, Mucosa Moist & [place], Posterior Pharynx Clear, Pupils Equal, Pupils Reactive, PERRLA Neck: Supple, Trachea Midline Lungs: Clear to Auscultation, Normal Respiratory Effort Cardiovascular: Regular Rate, Regular Rhythm GI/Abdominal Exam: Normal Bowel Sounds, Soft, Non-Tender, No Distention, Pelvis Stable Extremities: Normal Inspection, Normal Range of Motion, No Pedal Edema, Normal Capillary Refill Peripheral Pulses: 2+: Radial (L), Radial (R), Dorsalis Pedis (L), Dorsalis Pedis (R) Skin: Warm, Dry, Intact Neurological: Cranial Nerves Intact, Reflexes Equal Bilateral Neuro Extensive - Mental Status: Alert, Oriented x3, Normal Mood/Affect, Normal Cognition, Memory Intact Neuro Extensive - Motor, Sensory, Reflexes: CN II-XII Intact, Normal Gait, Normal Reflexes DTR: 2+: Tricep (L), Tricep (R), Achilles (L), Achilles (R) Psychiatric: Alert, Normal Affect, Normal Mood - Patient Data Lab Results Last 24 hrs: Laboratory Results - last 24 hr 05/12/20 05/12/20 05/12/20 Range/Units 17:35 17:35 17:35 WBC 8.80 (4.0-11.0) K/uL RBC 4.53 (4.30-5.90) M/uL Hgb 13.9 (12.0-16.0) g/dL Hct 42.5 (36.0-46.0) % MCV 93.8 (80.0-98.0) fL MCH 30.7 (27.0-32.0) pg MCHC 32.7 (31.0-37.0) g/dL RDW Std Deviation 46.9 (28.0-62.0) fl RDW Coeff of Brittny 14 (11.0-15.0) % Plt Count 256 (150-400) K/uL MPV 12.00 (7.40-12.00) fL Neut % (Auto) 67.9 (48.0-80.0) % Lymph % (Auto) 24.1 (16.0-40.0) % Villalba % (Auto) 6.5 (0.0-15.0) % Eos % (Auto) 1.0 (0.0-7.0) % Baso % (Auto) 0.5 (0.0-1.5) % Neut # (Auto) 6.0 H (1.4-5.7) K/uL Lymph # (Auto) 2.1 (0.6-2.4) K/uL Villalba # (Auto) 0.6 (0.0-0.8) K/uL Eos # (Auto) 0.1 (0.0-0.7) K/uL Baso # (Auto) 0.0 (0.0-0.1) K/uL Nucleated RBC % 0.0 /100WBC Nucleated RBCs # 0 K/uL INR 1.07 APTT 28.1 (18.6-31.3) SEC Sodium 140 (136-145) mmol/L Potassium 3.4 L (3.5-5.1) mmol/L Chloride 102 (98-107) mmol/L Carbon Dioxide 26.3 (21.0-32.0) mmol/L BUN 13 (7.0-18.0) mg/dL Creatinine 1.0 (0.6-1.0) mg/dL Est Cr Clr Drug Dosing 47.78 mL/min Estimated GFR (MDRD) 55.0 ml/min Glucose 106 (74-106) mg/dL Calcium 9.3 (8.5-10.1) mg/dL Magnesium 2.0 (1.8-2.4) mg/dL Total Bilirubin 0.5 (0.2-1.0) mg/dL AST 19 (15-37) IU/L ALT 22 (14-63) IU/L Alkaline Phosphatase 153 H (46-116) U/L Creatine Kinase 78 (26-308) U/L Troponin I < 0.050 (0.000-0.056) ng/mL Total Protein 7.7 (6.4-8.2) g/dL Albumin 3.8 (3.4-5.0) g/dL Globulin 3.9 (2.6-4.0) g/dL Albumin/Globulin Ratio 1.0 (0.9-1.6) Influenza Type A RNA (NEGATIVE) Influenza Type B RNA (NEGATIVE) SARS-CoV-2 RNA (KEI) (NEGATIVE) 05/12/20 Range/Units 18:20 WBC (4.0-11.0) K/uL RBC (4.30-5.90) M/uL Hgb (12.0-16.0) g/dL Hct (36.0-46.0) % MCV (80.0-98.0) fL MCH (27.0-32.0) pg MCHC (31.0-37.0) g/dL RDW Std Deviation (28.0-62.0) fl RDW Coeff of Brittny (11.0-15.0) % Plt Count (150-400) K/uL MPV (7.40-12.00) fL Neut % (Auto) (48.0-80.0) % Lymph % (Auto) (16.0-40.0) % Villalba % (Auto) (0.0-15.0) % Eos % (Auto) (0.0-7.0) % Baso % (Auto) (0.0-1.5) % Neut # (Auto) (1.4-5.7) K/uL Lymph # (Auto) (0.6-2.4) K/uL Villalba # (Auto) (0.0-0.8) K/uL Eos # (Auto) (0.0-0.7) K/uL Baso # (Auto) (0.0-0.1) K/uL Nucleated RBC % /100WBC Nucleated RBCs # K/uL INR APTT (18.6-31.3) SEC Sodium (136-145) mmol/L Potassium (3.5-5.1) mmol/L Chloride (98-107) mmol/L Carbon Dioxide (21.0-32.0) mmol/L BUN (7.0-18.0) mg/dL Creatinine (0.6-1.0) mg/dL Est Cr Clr Drug Dosing mL/min Estimated GFR (MDRD) ml/min Glucose (74-106) mg/dL Calcium (8.5-10.1) mg/dL Magnesium (1.8-2.4) mg/dL Total Bilirubin (0.2-1.0) mg/dL AST (15-37) IU/L ALT (14-63) IU/L Alkaline Phosphatase (46-116) U/L Creatine Kinase (26-308) U/L Troponin I (0.000-0.056) ng/mL Total Protein (6.4-8.2) g/dL Albumin (3.4-5.0) g/dL Globulin (2.6-4.0) g/dL Albumin/Globulin Ratio (0.9-1.6) Influenza Type A RNA NEGATIVE (NEGATIVE) Influenza Type B RNA NEGATIVE (NEGATIVE) SARS-CoV-2 RNA (KEI) NEGATIVE (NEGATIVE) Result Diagrams: 05/12/20 17:35 05/12/20 17:35 Sepsis Event Note - Evaluation Sepsis Screening Result: No Definite Risk - Focused Exam Vital Signs: Vital Signs Temp Pulse Resp BP Pulse Ox 05/12/20 17:09 97.6 F 97 18 208/121 H 97 Problem List Initiated/Reviewed/Updated: Yes Orders Last 24hrs: Active Orders 24 hr Category Date Time Status Patient Status [ADT] Routine ADT 05/12/20 19:44 Ordered Cardiac Monitoring [RC] CONTINUOUS Care 05/12/20 19:45 Ordered EKG Documentation Completion [RC] STAT Care 05/12/20 17:31 Active Oxygen Therapy [RC] PRN Care 05/12/20 19:44 Ordered VTE/DVT Education [RC] PER UNIT ROUTINE Care 05/12/20 19:44 Ordered Vital Signs [RC] Q4H Care 05/12/20 19:44 Ordered 2 Gram Sodium Diet [DIET] Diet 05/12/20 Dinner Ordered Heart Healthy Diet [DIET] Diet 05/12/20 Dinner Ordered TROPONIN I [CHEM] Routine Lab 05/12/20 23:35 Ordered TROPONIN I [CHEM] Stat Lab 05/12/20 20:35 Ordered Acetaminophen [TylenoL] Med 05/12/20 19:40 Ordered 650 mg PO Q4H PRN Labetalol [Normodyne] Med 05/12/20 19:53 Ordered 20 mg IVPUSH Q4H PRN Ondansetron [Zofran ODT] Med 05/12/20 19:40 Ordered 4 mg PO Q4H PRN Resuscitation Status Routine Resus Stat 05/12/20 19:40 Ordered Medication Orders Acetaminophen (Tylenol) 650 mg PO Q4H PRN PRN Reason: Pain (Mild 1-3)/fever Labetalol HCl (Normodyne) 20 mg IVPUSH Q4H PRN; Protocol PRN Reason: Hypertension Ondansetron HCl (Zofran Odt) 4 mg PO Q4H PRN PRN Reason: nausea, able to take PO Assessment/Plan Comment:: Patient is a 70-year-old female admitted for ACS rule out, additionally came in with hypertensive urgency and skin rash on her left external lower extremity 1. ACS rule out: Tylenol for pain as needed Chest x-ray indicated diffuse interstitial markings indicative of pulmonary edema therefore is 20 mg IV push of Lasix Continue to monitor on telemetry First set of troponins was negative, continue to trend to 3 hours 3 times Zofran for nausea 2. Hypertensive urgency: IV labetalol 20 mg every 4 hours as needed No endorgan damage for labs Tylenol for associated headache, headache should resolve with lowering blood pressure 3.rash of lower extremity: Possible insect bites or bedbug bites therefore placed patient on contact precautions May consider topical steroid treatment 4. Cardiac diet with 2 g sodium restriction, DVT prophylaxis with SCDs, 40 pantoprazole for GI prophylaxis, activity with assistance as patient is primarily wheelchair-bound due to previous fusion in foot. <Jagruti Borrego - Last Filed: 05/12/20 23:43> H&P History of Present Illness - General Admit Problem/Dx: Admission Diagnosis/Problem Admission Diagnosis/Problem Acute coronary syndrome Exam - Vital Signs Vital Signs: Last Vital Signs Temp 36.4 C 05/12/20 21:30 Pulse 61 05/12/20 21:30 Resp 18 05/12/20 21:30 BP 165/89 H 05/12/20 22:20 Pulse Ox 96 05/12/20 21:30 - Patient Data Lab Results Last 24 hrs: Laboratory Results - last 24 hr 05/12/20 05/12/20 05/12/20 Range/Units 17:35 17:35 17:35 WBC 8.80 (4.0-11.0) K/uL RBC 4.53 (4.30-5.90) M/uL Hgb 13.9 (12.0-16.0) g/dL Hct 42.5 (36.0-46.0) % MCV 93.8 (80.0-98.0) fL MCH 30.7 (27.0-32.0) pg MCHC 32.7 (31.0-37.0) g/dL RDW Std Deviation 46.9 (28.0-62.0) fl RDW Coeff of Brittny 14 (11.0-15.0) % Plt Count 256 (150-400) K/uL MPV 12.00 (7.40-12.00) fL Neut % (Auto) 67.9 (48.0-80.0) % Lymph % (Auto) 24.1 (16.0-40.0) % Villalba % (Auto) 6.5 (0.0-15.0) % Eos % (Auto) 1.0 (0.0-7.0) % Baso % (Auto) 0.5 (0.0-1.5) % Neut # (Auto) 6.0 H (1.4-5.7) K/uL Lymph # (Auto) 2.1 (0.6-2.4) K/uL Villalba # (Auto) 0.6 (0.0-0.8) K/uL Eos # (Auto) 0.1 (0.0-0.7) K/uL Baso # (Auto) 0.0 (0.0-0.1) K/uL Nucleated RBC % 0.0 /100WBC Nucleated RBCs # 0 K/uL INR 1.07 APTT 28.1 (18.6-31.3) SEC Sodium 140 (136-145) mmol/L Potassium 3.4 L (3.5-5.1) mmol/L Chloride 102 (98-107) mmol/L Carbon Dioxide 26.3 (21.0-32.0) mmol/L BUN 13 (7.0-18.0) mg/dL Creatinine 1.0 (0.6-1.0) mg/dL Est Cr Clr Drug Dosing 47.78 mL/min Estimated GFR (MDRD) 55.0 ml/min Glucose 106 (74-106) mg/dL Calcium 9.3 (8.5-10.1) mg/dL Magnesium 2.0 (1.8-2.4) mg/dL Total Bilirubin 0.5 (0.2-1.0) mg/dL AST 19 (15-37) IU/L ALT 22 (14-63) IU/L Alkaline Phosphatase 153 H (46-116) U/L Creatine Kinase 78 (26-308) U/L Troponin I < 0.050 (0.000-0.056) ng/mL Total Protein 7.7 (6.4-8.2) g/dL Albumin 3.8 (3.4-5.0) g/dL Globulin 3.9 (2.6-4.0) g/dL Albumin/Globulin Ratio 1.0 (0.9-1.6) Influenza Type A RNA (NEGATIVE) Influenza Type B RNA (NEGATIVE) SARS-CoV-2 RNA (KEI) (NEGATIVE) 05/12/20 05/12/20 Range/Units 18:20 20:43 WBC (4.0-11.0) K/uL RBC (4.30-5.90) M/uL Hgb (12.0-16.0) g/dL Hct (36.0-46.0) % MCV (80.0-98.0) fL MCH (27.0-32.0) pg MCHC (31.0-37.0) g/dL RDW Std Deviation (28.0-62.0) fl RDW Coeff of Brittny (11.0-15.0) % Plt Count (150-400) K/uL MPV (7.40-12.00) fL Neut % (Auto) (48.0-80.0) % Lymph % (Auto) (16.0-40.0) % Villalba % (Auto) (0.0-15.0) % Eos % (Auto) (0.0-7.0) % Baso % (Auto) (0.0-1.5) % Neut # (Auto) (1.4-5.7) K/uL Lymph # (Auto) (0.6-2.4) K/uL Villalba # (Auto) (0.0-0.8) K/uL Eos # (Auto) (0.0-0.7) K/uL Baso # (Auto) (0.0-0.1) K/uL Nucleated RBC % /100WBC Nucleated RBCs # K/uL INR APTT (18.6-31.3) SEC Sodium (136-145) mmol/L Potassium (3.5-5.1) mmol/L Chloride (98-107) mmol/L Carbon Dioxide (21.0-32.0) mmol/L BUN (7.0-18.0) mg/dL Creatinine (0.6-1.0) mg/dL Est Cr Clr Drug Dosing mL/min Estimated GFR (MDRD) ml/min Glucose (74-106) mg/dL Calcium (8.5-10.1) mg/dL Magnesium (1.8-2.4) mg/dL Total Bilirubin (0.2-1.0) mg/dL AST (15-37) IU/L ALT (14-63) IU/L Alkaline Phosphatase (46-116) U/L Creatine Kinase (26-308) U/L Troponin I < 0.050 (0.000-0.056) ng/mL Total Protein (6.4-8.2) g/dL Albumin (3.4-5.0) g/dL Globulin (2.6-4.0) g/dL Albumin/Globulin Ratio (0.9-1.6) Influenza Type A RNA NEGATIVE (NEGATIVE) Influenza Type B RNA NEGATIVE (NEGATIVE) SARS-CoV-2 RNA (KEI) NEGATIVE (NEGATIVE) Result Diagrams: 05/12/20 17:35 05/12/20 17:35 Sepsis Event Note - Focused Exam Vital Signs: Vital Signs Temp Pulse Resp BP BP Pulse Ox 05/12/20 22:20 165/89 H 05/12/20 21:30 36.4 C 61 18 198/90 H 96 05/12/20 21:09 184/88 H 05/12/20 20:02 73 196/90 H 05/12/20 17:09 36.4 C 97 18 208/121 H 97 Orders Last 24hrs: Active Orders 24 hr Category Date Time Status Patient Status [ADT] Routine ADT 05/12/20 19:44 Active Cardiac Monitoring [RC] CONTINUOUS Care 05/12/20 19:45 Active Communication Order [RC] PER UNIT ROUTINE Care 05/12/20 20:09 Active EKG Documentation Completion [RC] STAT Care 05/12/20 17:31 Active Oxygen Therapy [RC] PRN Care 05/12/20 19:44 Active RT Aerosol Therapy [RC] ASDIRECTED Care 05/12/20 20:27 Active Telemetry Monitoring [Cardiac Monitoring] [RC] . Care 05/12/20 20:11 Active DIRECTED VTE/DVT Education [RC] PER UNIT ROUTINE Care 05/12/20 19:44 Active Vital Signs [RC] Q4H Care 05/12/20 19:44 Active 2 Gram Sodium Diet [DIET] Diet 05/12/20 Dinner Active Heart Healthy Diet [DIET] Diet 05/12/20 Dinner Active TROPONIN I [CHEM] Routine Lab 05/12/20 23:35 Ordered Acetaminophen [TylenoL] Med 05/12/20 19:40 Active 650 mg PO Q4H PRN Acetaminophen/HYDROcodone [Hiram 325-5 MG] Med 05/12/20 20:24 Active 1 tab PO Q4H PRN Albuterol/Ipratropium [DuoNeb 3.0-0.5 MG/3 ML] Med 05/12/20 20:26 Active 3 ml NEB Q4HRRT PRN Apixaban [Eliquis] Med 05/12/20 21:00 Active 5 mg PO BID Labetalol [Normodyne] Med 05/12/20 19:53 Active 20 mg IVPUSH Q4H PRN Ondansetron [Zofran ODT] Med 05/12/20 19:40 Active 4 mg PO Q4H PRN Resuscitation Status Routine Resus Stat 05/12/20 19:40 Ordered Medication Orders Acetaminophen (Tylenol) 650 mg PO Q4H PRN PRN Reason: Pain (Mild 1-3)/fever Hydrocodone Bitart/Acetaminophen (Hiram 325-5 Mg) 1 tab PO Q4H PRN PRN Reason: Pain Albuterol/Ipratropium (Duoneb 3.0-0.5 Mg/3 Ml) 3 ml NEB Q4HRRT PRN PRN Reason: Shortness of Breath Apixaban (Eliquis) 5 mg PO BID JARVIS Last Admin: 05/12/20 22:04 Dose: 5 mg Documented by: STAS Labetalol HCl (Normodyne) 20 mg IVPUSH Q4H PRN; Protocol PRN Reason: Hypertension Last Admin: 05/12/20 20:57 Dose: 20 mg Documented by: REUSCIN Ondansetron HCl (Zofran Odt) 4 mg PO Q4H PRN PRN Reason: nausea, able to take PO Assessment/Plan Comment:: I performed a history and physical exam of the patient and discussed management with resident. I have reviewed the residents note and agree with documented findings and plan unless otherwise specified in my note. Patient states "she see maggots coming out of her skin, she tried to out rubbing alcohol and it kills them and they come out like hair strands:. States she tried to put needles in her skin to get them out, Now states she thinks they are in her scalp as well. Patient c/o itching through out. states she got maggots from her cats and their litter in the bathroom. No maggots/worms noted on exam, just needle puncture wounds, will continue to monitor. 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
[2020-05-12] MEDS ORDERED: Labetalol 100 MG/20 ML MDV IVPUSH ONE (20:24)
[2020-05-12] MEDS ORDERED: Albuterol/Ipratropium 3.0-0.5 MG/3 ML Neb Soln NEB PRN (20:26)
[2020-05-12] MEDS: Labetalol 100 MG/20 ML MDV IVPUSH PRN (20:57)
[2020-05-12] MEDS: Apixaban 5 MG Tab PO SCH (22:04)
[2020-05-12] MEDS ORDERED: Cetirizine 10 MG Tab PO ONE (23:43)
[2020-05-12] MEDS ORDERED: risperiDONE 0.5 MG Tab PO SCH (23:46)
[2020-05-12] MEDS ORDERED: hydrOXYzine Pamoate 25 MG Cap PO PRN (23:46)
[2020-05-13] MEDS: risperiDONE 1 MG Tab PO SCH ×2 (00:28→20:41)
[2020-05-13] MEDS: Acetaminophen/HYDROcodone 325-5 MG Tab PO PRN ×4 (03:47→20:40)
[2020-05-13] MEDS: Diltiazem 120 MG Cap.CD PO SCH (08:09)
[2020-05-13] MEDS: Furosemide 20 MG Tab PO SCH (08:10)
[2020-05-13] MEDS: Escitalopram 10 MG Tab PO SCH (08:11)
[2020-05-13] MEDS: DULoxetine 60 MG Cap PO SCH (08:11)
[2020-05-13] MEDS: LORazepam 1 MG Tab PO SCH ×2 (08:12→20:41)
[2020-05-13] MEDS ORDERED: Potassium Chloride 10% 20 MEQ/15 ML Soln 30 ML UD Cup PO ONE (08:58)
[2020-05-13] MEDS: Apixaban 5 MG Tab PO SCH ×2 (10:42→20:41)
[2020-05-13 11:18] LABS: CARBON DIOXIDE,CO2 27.4 mmol/L (21.0-32.0); POTASSIUM,K 3.1 mmol/L (3.5-5.1)
[2020-05-13] MEDS ORDERED: Potassium Chloride 20 MEQ Tab.ER PO ONE (11:28)
--- NOTE | 2020-05-13 11:47 | PCM.PN ---
- General Info Date of Service: 05/13/20 Admission Dx/Problem (Free Text): Admission Diagnosis/Problem Admission Diagnosis/Problem Acute coronary syndrome Subjective Update: seen at bedside, no acute distress, states she feeks better but still feel she has maggots under her skin, nurse yesterday tried rubbing alcohol on her leg which per patient "makes maggots come out" but no worm infestation was noted. Per son she also sees a "little girl in her home" and asks her to "get out of the house". Patient is calm, no agitated. Functional Status: Reports: Tolerating Diet, Ambulating, Urinating - Review of Systems General: Denies: Fever, Weakness, Fatigue Pulmonary: Denies: Shortness of Breath, Pleuritic Chest Pain Cardiovascular: Denies: Chest Pain, Palpitations, Dyspnea on Exertion Gastrointestinal: Denies: Abdominal Pain, Constipation, Decreased Appetite Genitourinary: Denies: Dysuria, Burning Musculoskeletal: Denies: Neck Pain, Shoulder Pain, Arm Pain Skin: Denies: Cyanosis, Jaundice - Patient Data Vitals - Most Recent: Last Vital Signs Temp 36.4 C 05/13/20 11:36 Pulse 65 05/13/20 11:36 Resp 16 05/13/20 11:36 BP 169/75 H 05/13/20 11:36 Pulse Ox 95 05/13/20 11:36 Weight - Most Recent: 82.962 kg I&O - Last 24 Hours: Intake & Output 05/12/20 05/13/20 05/13/20 22:59 06:59 14:59 Intake Total 450 Output Total 300 Balance 150 Lab Results Last 24 Hours: Laboratory Results - last 24 hr 05/12/20 05/12/20 05/12/20 Range/Units 17:35 17:35 17:35 WBC 8.80 (4.0-11.0) K/uL RBC 4.53 (4.30-5.90) M/uL Hgb 13.9 (12.0-16.0) g/dL Hct 42.5 (36.0-46.0) % MCV 93.8 (80.0-98.0) fL MCH 30.7 (27.0-32.0) pg MCHC 32.7 (31.0-37.0) g/dL RDW Std Deviation 46.9 (28.0-62.0) fl RDW Coeff of Brittny 14 (11.0-15.0) % Plt Count 256 (150-400) K/uL MPV 12.00 (7.40-12.00) fL Neut % (Auto) 67.9 (48.0-80.0) % Lymph % (Auto) 24.1 (16.0-40.0) % [place] % (Auto) 6.5 (0.0-15.0) % Eos % (Auto) 1.0 (0.0-7.0) % Baso % (Auto) 0.5 (0.0-1.5) % Neut # (Auto) 6.0 H (1.4-5.7) K/uL Lymph # (Auto) 2.1 (0.6-2.4) K/uL [place] # (Auto) 0.6 (0.0-0.8) K/uL Eos # (Auto) 0.1 (0.0-0.7) K/uL Baso # (Auto) 0.0 (0.0-0.1) K/uL Nucleated RBC % 0.0 /100WBC Nucleated RBCs # 0 K/uL INR 1.07 APTT 28.1 (18.6-31.3) SEC Sodium 140 (136-145) mmol/L Potassium 3.4 L (3.5-5.1) mmol/L Chloride 102 (98-107) mmol/L Carbon Dioxide 26.3 (21.0-32.0) mmol/L BUN 13 (7.0-18.0) mg/dL Creatinine 1.0 (0.6-1.0) mg/dL Est Cr Clr Drug Dosing 47.78 mL/min Estimated GFR (MDRD) 55.0 ml/min Glucose 106 (74-106) mg/dL Calcium 9.3 (8.5-10.1) mg/dL Magnesium 2.0 (1.8-2.4) mg/dL Total Bilirubin 0.5 (0.2-1.0) mg/dL AST 19 (15-37) IU/L ALT 22 (14-63) IU/L Alkaline Phosphatase 153 H (46-116) U/L Creatine Kinase 78 (26-308) U/L Troponin I < 0.050 (0.000-0.056) ng/mL Total Protein 7.7 (6.4-8.2) g/dL Albumin 3.8 (3.4-5.0) g/dL Globulin 3.9 (2.6-4.0) g/dL Albumin/Globulin Ratio 1.0 (0.9-1.6) Influenza Type A RNA (NEGATIVE) Influenza Type B RNA (NEGATIVE) SARS-CoV-2 RNA (KEI) (NEGATIVE) 05/12/20 05/12/20 05/12/20 Range/Units 18:20 20:43 23:42 WBC (4.0-11.0) K/uL RBC (4.30-5.90) M/uL Hgb (12.0-16.0) g/dL Hct (36.0-46.0) % MCV (80.0-98.0) fL MCH (27.0-32.0) pg MCHC (31.0-37.0) g/dL RDW Std Deviation (28.0-62.0) fl RDW Coeff of Brittny (11.0-15.0) % Plt Count (150-400) K/uL MPV (7.40-12.00) fL Neut % (Auto) (48.0-80.0) % Lymph % (Auto) (16.0-40.0) % [place] % (Auto) (0.0-15.0) % Eos % (Auto) (0.0-7.0) % Baso % (Auto) (0.0-1.5) % Neut # (Auto) (1.4-5.7) K/uL Lymph # (Auto) (0.6-2.4) K/uL [place] # (Auto) (0.0-0.8) K/uL Eos # (Auto) (0.0-0.7) K/uL Baso # (Auto) (0.0-0.1) K/uL Nucleated RBC % /100WBC Nucleated RBCs # K/uL INR APTT (18.6-31.3) SEC Sodium (136-145) mmol/L Potassium (3.5-5.1) mmol/L Chloride (98-107) mmol/L Carbon Dioxide (21.0-32.0) mmol/L BUN (7.0-18.0) mg/dL Creatinine (0.6-1.0) mg/dL Est Cr Clr Drug Dosing mL/min Estimated GFR (MDRD) ml/min Glucose (74-106) mg/dL Calcium (8.5-10.1) mg/dL Magnesium (1.8-2.4) mg/dL Total Bilirubin (0.2-1.0) mg/dL AST (15-37) IU/L ALT (14-63) IU/L Alkaline Phosphatase (46-116) U/L Creatine Kinase (26-308) U/L Troponin I < 0.050 < 0.050 (0.000-0.056) ng/mL Total Protein (6.4-8.2) g/dL Albumin (3.4-5.0) g/dL Globulin (2.6-4.0) g/dL Albumin/Globulin Ratio (0.9-1.6) Influenza Type A RNA NEGATIVE (NEGATIVE) Influenza Type B RNA NEGATIVE (NEGATIVE) SARS-CoV-2 RNA (KEI) NEGATIVE (NEGATIVE) 05/13/20 05/13/20 Range/Units 10:28 10:28 WBC 11.14 H (4.0-11.0) K/uL RBC 4.78 (4.30-5.90) M/uL Hgb 14.6 (12.0-16.0) g/dL Hct 45.0 (36.0-46.0) % MCV 94.1 (80.0-98.0) fL MCH 30.5 (27.0-32.0) pg MCHC 32.4 (31.0-37.0) g/dL RDW Std Deviation 47.4 (28.0-62.0) fl RDW Coeff of Brittny 14 (11.0-15.0) % Plt Count 261 (150-400) K/uL MPV 12.30 H (7.40-12.00) fL Neut % (Auto) 72.7 (48.0-80.0) % Lymph % (Auto) 21.5 (16.0-40.0) % [place] % (Auto) 5.0 (0.0-15.0) % Eos % (Auto) 0.4 (0.0-7.0) % Baso % (Auto) 0.4 (0.0-1.5) % Neut # (Auto) 8.1 H (1.4-5.7) K/uL Lymph # (Auto) 2.4 (0.6-2.4) K/uL [place] # (Auto) 0.6 (0.0-0.8) K/uL Eos # (Auto) 0.1 (0.0-0.7) K/uL Baso # (Auto) 0.0 (0.0-0.1) K/uL Nucleated RBC % 0.0 /100WBC Nucleated RBCs # 0 K/uL INR APTT (18.6-31.3) SEC Sodium 138 (136-145) mmol/L Potassium 3.1 L (3.5-5.1) mmol/L Chloride 101 (98-107) mmol/L Carbon Dioxide 27.4 (21.0-32.0) mmol/L BUN 14 (7.0-18.0) mg/dL Creatinine 1.0 (0.6-1.0) mg/dL Est Cr Clr Drug Dosing 47.70 mL/min Estimated GFR (MDRD) 55.0 ml/min Glucose 144 H (74-106) mg/dL Calcium 9.4 (8.5-10.1) mg/dL Magnesium (1.8-2.4) mg/dL Total Bilirubin (0.2-1.0) mg/dL AST (15-37) IU/L ALT (14-63) IU/L Alkaline Phosphatase (46-116) U/L Creatine Kinase (26-308) U/L Troponin I (0.000-0.056) ng/mL Total Protein (6.4-8.2) g/dL Albumin (3.4-5.0) g/dL Globulin (2.6-4.0) g/dL Albumin/Globulin Ratio (0.9-1.6) Influenza Type A RNA (NEGATIVE) Influenza Type B RNA (NEGATIVE) SARS-CoV-2 RNA (KEI) (NEGATIVE) Med Orders - Current: Current Medications Acetaminophen (Tylenol) 650 mg PO Q4H PRN PRN Reason: Pain (Mild 1-3)/fever Last Admin: 05/13/20 07:57 Dose: 325 mg Documented by: Hydrocodone Bitart/Acetaminophen ([place] 325-5 Mg) 1 tab PO Q4H PRN PRN Reason: Pain Last Admin: 05/13/20 08:01 Dose: 1 tab Documented by: Albuterol/Ipratropium (Duoneb 3.0-0.5 Mg/3 Ml) 3 ml NEB Q4HRRT PRN PRN Reason: Shortness of Breath Apixaban (Eliquis) 5 mg PO BID [facility] Last Admin: 05/13/20 10:42 Dose: 5 mg Documented by: Diltiazem HCl (Cardizem Cd) 240 mg PO DAILY [facility] Last Admin: 05/13/20 08:09 Dose: 240 mg Documented by: Duloxetine HCl (Cymbalta) 120 mg PO DAILY [facility] Last Admin: 05/13/20 08:11 Dose: 120 mg Documented by: Escitalopram Oxalate (Lexapro) 10 mg PO DAILY [facility] Last Admin: 05/13/20 08:11 Dose: 10 mg Documented by: Furosemide (Lasix) 20 mg PO DAILY [facility] Last Admin: 05/13/20 08:10 Dose: 20 mg Documented by: Lisinopril/HCTZ (Lisinopril-Hctz 10-12.5 Mg) 1 tab PO DAILY [facility] Hydroxyzine Pamoate (Vistaril) 25 mg PO TID PRN PRN Reason: ANXIETY/ITCHING Labetalol HCl (Normodyne) 20 mg IVPUSH Q4H PRN; Protocol PRN Reason: Hypertension Last Admin: 05/12/20 20:57 Dose: 20 mg Documented by: Lorazepam (Ativan) 1 mg PO BID [facility] Last Admin: 05/13/20 08:12 Dose: 1 mg Documented by: Ondansetron HCl (Zofran Odt) 4 mg PO Q4H PRN PRN Reason: nausea, able to take PO Potassium Chloride (Klor-Con M20) 20 meq PO ONETIME ONE Stop: 05/13/20 11:29 Risperidone (Risperidal) 0.5 mg PO BEDTIME [facility] Last Admin: 05/13/20 00:28 Dose: 0.5 mg Documented by: Discontinued Medications Hydrocodone Bitart/Acetaminophen ([place] 325-10 Mg) 1 tab PO ONETIME ONE Stop: 05/12/20 19:57 Last Admin: 05/12/20 20:00 Dose: 1 tab Documented by: Cetirizine HCl (Zyrtec) 10 mg PO ONETIME ONE Stop: 05/12/20 23:44 Last Admin: 05/13/20 00:29 Dose: 10 mg Documented by: Furosemide (Lasix) 20 mg IVPUSH NOW ONE Stop: 05/12/20 19:51 Last Admin: 05/12/20 20:23 Dose: 20 mg Documented by: Hydralazine HCl (Apresoline) 10 mg IVPUSH ONETIME ONE Stop: 05/12/20 17:34 Last Admin: 05/12/20 17:49 Dose: 10 mg Documented by: Labetalol HCl (Normodyne) 20 mg IVPUSH ONETIME ONE; Protocol Stop: 05/12/20 20:25 Last Admin: 05/13/20 03:49 Dose: Not Given Documented by: Oxycodone/Acetaminophen (Percocet 325-10 Mg) 1 tab PO ONETIME ONE Stop: 05/12/20 19:53 Last Admin: 05/12/20 20:22 Dose: Not Given Documented by: Potassium Chloride (Potassium Chloride) 40 meq PO ONETIME ONE Stop: 05/13/20 08:59 Last Admin: 05/13/20 10:41 Dose: 40 meq Documented by: Risperidone (Risperidal) 0.5 mg PO BEDTIME [facility] Last Admin: 05/13/20 03:49 Dose: Not Given Documented by: Risperidone (Risperidal) 0.5 mg PO BEDTIME [facility] - Exam Quality Assessment: No: Supplemental Oxygen General: Alert, Oriented, Cooperative, No Acute Distress Lungs: Clear to Auscultation, Normal Respiratory Effort Cardiovascular: Regular Rate, Regular Rhythm GI/Abdominal Exam: Normal Bowel Sounds, Soft, Non-Tender Psy/Mental Status: Alert, Normal Affect, Normal Mood, Other (states she has maggots in her skin, possible delusion of infestation ) Sepsis Event Note - Evaluation Sepsis Screening Result: No Definite Risk - Focused Exam Vital Signs: Vital Signs Temp Pulse Pulse Resp BP BP Pulse Ox 05/13/20 11:36 36.4 C 65 16 169/75 H 95 05/13/20 08:09 76 183/90 H 05/13/20 08:06 36.4 C 76 18 183/90 H 95 05/13/20 03:51 36.5 C 80 17 170/83 H 94 L 05/13/20 00:53 Pulse Ox 05/13/20 11:36 05/13/20 08:09 05/13/20 08:06 05/13/20 03:51 05/13/20 00:53 96 - Problem List & Annotations (1) ACS (acute coronary syndrome) SNOMED Code(s): 249690376 Code(s): I24.9 - ACUTE ISCHEMIC HEART DISEASE, UNSPECIFIED Status: Acute Current Visit: Yes (2) History of CVA (cerebrovascular accident) SNOMED Code(s): 208071802 Code(s): Z86.73 - PRSNL HX OF TIA (TIA), AND CEREB INFRC W/O RESID DEFICITS Status: Acute Current Visit: No (3) HLD (hyperlipidemia) SNOMED Code(s): 58595541 Code(s): E78.5 - HYPERLIPIDEMIA, UNSPECIFIED Status: Chronic Current Visit: No (4) HTN (hypertension) SNOMED Code(s): 85462538 Code(s): I10 - ESSENTIAL (PRIMARY) HYPERTENSION Status: Chronic Current Visit: No (5) Hypokalemia SNOMED Code(s): 72393724 Code(s): E87.6 - HYPOKALEMIA Status: Acute Current Visit: Yes - Problem List Review Problem List Initiated/Reviewed/Updated: Yes - My Orders Last 24 Hours: My Active Orders 05/12/20 20:24 Acetaminophen/HYDROcodone [[place] 325-5 MG] 1 tab PO Q4H PRN 05/12/20 20:26 Albuterol/Ipratropium [DuoNeb 3.0-0.5 MG/3 ML] 3 ml NEB Q4HRRT PRN 05/12/20 20:27 RT Aerosol Therapy [RC] ASDIRECTED 05/12/20 21:00 Apixaban [Eliquis] 5 mg PO BID 05/12/20 23:46 hydrOXYzine pamoate [Vistaril] 25 mg PO TID PRN 05/13/20 00:30 risperiDONE [RisperiDAL] 0.5 mg PO BEDTIME 05/13/20 09:00 DULoxetine [Cymbalta] 120 mg PO DAILY Diltiazem [Cardizem CD] 240 mg PO DAILY Escitalopram [Lexapro] 10 mg PO DAILY Furosemide [Lasix] 20 mg PO DAILY LORazepam [Ativan] 1 mg PO BID 05/13/20 11:28 Potassium Chloride [Klor-Con M20] 20 meq PO ONETIME ONE 05/13/20 11:45 Lisinopril/Hydrochlorothiazide [Lisinopril-HCTZ 10-12.5 MG] 1 tab PO DAILY - Plan Plan:: Patient is a 70-year-old female admitted for ACS rule out, additionally came in with hypertensive urgency and skin rash on her left external lower extremity 1. ACS rule out: - Trops negative, tele unremarkable, ACS ruled out, no chest pain 2. Hypertensive urgency: BP is better, will add another antihypertensive medication for better control SBP still in 180s, will keep patient for another day to monitor responsiveness to new meds 3.rash of lower extremity: possible secondary to patient poking with needles No worms noted, possible delusiom of infestation -start low dose risperidone 4- Hypokalemia: monitor and replete 5. Cardiac diet with 2 g sodium restriction, DVT prophylaxis with SCDs, 40 pantoprazole for GI prophylaxis, activity with assistance as patient is primarily wheelchair-bound due to previous fusion in foot.
[2020-05-13] MEDS: Lisinopril/Hydrochlorothiazide 10-12.5 MG Tab PO SCH (12:11)
--- NOTE | 2020-05-13 13:37 | PCM.DCSUM1 ---
Discharge Summary - Hospital Course Diagnosis: Stroke: No - Discharge Data Discharge Disposition: Home, Self-Care 01 Condition: Stable - Referral to Home Health Primary Care Physician: PCP None - Discharge Diagnosis/Problem(s) (1) ACS (acute coronary syndrome) SNOMED Code(s): 402452033 ICD Code: I24.9 - ACUTE ISCHEMIC HEART DISEASE, UNSPECIFIED Status: Acute Current Visit: Yes (2) History of CVA (cerebrovascular accident) SNOMED Code(s): 549377420 ICD Code: Z86.73 - PRSNL HX OF TIA (TIA), AND CEREB INFRC W/O RESID DEFICITS Status: Acute Current Visit: No (3) HLD (hyperlipidemia) SNOMED Code(s): 07978761 ICD Code: E78.5 - HYPERLIPIDEMIA, UNSPECIFIED Status: Chronic Current Visit: No (4) HTN (hypertension) SNOMED Code(s): 64085391 ICD Code: I10 - ESSENTIAL (PRIMARY) HYPERTENSION Status: Chronic Current Visit: No (5) Hypokalemia SNOMED Code(s): 71305924 ICD Code: E87.6 - HYPOKALEMIA Status: Acute Current Visit: Yes - Patient Instructions Diet: Heart Healthy Diet Activity: As Tolerated Showering/Bathing: May Shower Notify Provider of: Fever, Increased Pain, Swelling and Redness, Drainage, Nausea and/or Vomiting - Discharge Plan *PRESCRIPTION DRUG MONITORING PROGRAM REVIEWED*: Not Applicable *COPY OF PRESCRIPTION DRUG MONITORING REPORT IN PATIENT ALMA ROSA: Not Applicable Prescriptions/Med Rec: hydrOXYzine pamoate [Hydroxyzine Pamoate] 25 mg PO TID PRN #30 PRN Reason: ANXIETY/ITCHING Lisinopril/Hydrochlorothiazide [Lisinopril-HCTZ 10-12.5 MG] 1 tab PO DAILY #30 tablet risperiDONE [RisperiDAL] 0.5 mg PO BEDTIME #30 tablet Home Medications: Home Meds DULoxetine HCl [Duloxetine HCl] 120 mg PO DAILY 12/22/13 [History] Apixaban [Eliquis] 5 mg PO BID 08/14/15 [History] Esomeprazole [NexIUM] 40 mg PO DAILY 08/21/17 [History] Olmesartan Medoxomil 40 mg PO DAILY 09/07/19 [History] Escitalopram [Lexapro] 10 mg PO DAILY 02/02/20 [History] Furosemide 20 mg PO DAILY 02/02/20 [History] Gabapentin [Neurontin] 600 mg PO TID 02/02/20 [History] Diclofenac Sodium 1 applic TOP QID PRN 02/23/20 [History] dilTIAZem HCL [Diltiazem 24Hr ER] 240 mg PO DAILY 02/23/20 [History] Collagenase [Santyl Oint] 1 applic TOP ASDIRECTED PRN 03/08/20 [History] Hydrocodone/Acetaminophen [Hydrocodone-Acetamin 10-325 mg] 1 tab PO 6XDAY PRN 03/08/20 [History] Naloxone HCl [Narcan] 4 mg NS ONETIME PRN #1 spray 04/17/20 [Rx] Cyclobenzaprine [Flexeril] 5 mg PO QID PRN 05/13/20 [History] LORazepam [Ativan] 2 mg PO TID PRN 05/13/20 [History] Lisinopril/Hydrochlorothiazide [Lisinopril-HCTZ 10-12.5 MG] 1 tab PO DAILY #30 tablet 05/13/20 [Rx] hydrOXYzine pamoate [Hydroxyzine Pamoate] 25 mg PO TID PRN #30 05/13/20 [Rx] risperiDONE [RisperiDAL] 0.5 mg PO BEDTIME #30 tablet 05/13/20 [Rx] traMADol [Ultram] 50 mg PO BID PRN 05/13/20 [History] Forms: ED Department Discharge Referrals: Meghna Irby DO [Ordering Only Provider] - - Patient Data Vitals - Most Recent: Last Vital Signs Temp 36.4 C 05/13/20 11:36 Pulse 66 05/13/20 12:12 Resp 16 05/13/20 11:36 BP 149/78 H 05/13/20 12:12 Pulse Ox 95 05/13/20 11:36 Weight - Most Recent: 82.962 kg I&O - Last 24 hours: Intake & Output 05/12/20 05/13/20 05/13/20 22:59 06:59 14:59 Intake Total 450 Output Total 300 Balance 150 Lab Results - Last 24 hrs: Laboratory Results - last 24 hr 05/12/20 05/12/20 05/12/20 Range/Units 17:35 17:35 17:35 WBC 8.80 (4.0-11.0) K/uL RBC 4.53 (4.30-5.90) M/uL Hgb 13.9 (12.0-16.0) g/dL Hct 42.5 (36.0-46.0) % MCV 93.8 (80.0-98.0) fL MCH 30.7 (27.0-32.0) pg MCHC 32.7 (31.0-37.0) g/dL RDW Std Deviation 46.9 (28.0-62.0) fl RDW Coeff of Brittny 14 (11.0-15.0) % Plt Count 256 (150-400) K/uL MPV 12.00 (7.40-12.00) fL Neut % (Auto) 67.9 (48.0-80.0) % Lymph % (Auto) 24.1 (16.0-40.0) % [place] % (Auto) 6.5 (0.0-15.0) % Eos % (Auto) 1.0 (0.0-7.0) % Baso % (Auto) 0.5 (0.0-1.5) % Neut # (Auto) 6.0 H (1.4-5.7) K/uL Lymph # (Auto) 2.1 (0.6-2.4) K/uL [place] # (Auto) 0.6 (0.0-0.8) K/uL Eos # (Auto) 0.1 (0.0-0.7) K/uL Baso # (Auto) 0.0 (0.0-0.1) K/uL Nucleated RBC % 0.0 /100WBC Nucleated RBCs # 0 K/uL INR 1.07 APTT 28.1 (18.6-31.3) SEC Sodium 140 (136-145) mmol/L Potassium 3.4 L (3.5-5.1) mmol/L Chloride 102 (98-107) mmol/L Carbon Dioxide 26.3 (21.0-32.0) mmol/L BUN 13 (7.0-18.0) mg/dL Creatinine 1.0 (0.6-1.0) mg/dL Est Cr Clr Drug Dosing 47.78 mL/min Estimated GFR (MDRD) 55.0 ml/min Glucose 106 (74-106) mg/dL Calcium 9.3 (8.5-10.1) mg/dL Magnesium 2.0 (1.8-2.4) mg/dL Total Bilirubin 0.5 (0.2-1.0) mg/dL AST 19 (15-37) IU/L ALT 22 (14-63) IU/L Alkaline Phosphatase 153 H (46-116) U/L Creatine Kinase 78 (26-308) U/L Troponin I < 0.050 (0.000-0.056) ng/mL Total Protein 7.7 (6.4-8.2) g/dL Albumin 3.8 (3.4-5.0) g/dL Globulin 3.9 (2.6-4.0) g/dL Albumin/Globulin Ratio 1.0 (0.9-1.6) Influenza Type A RNA (NEGATIVE) Influenza Type B RNA (NEGATIVE) SARS-CoV-2 RNA (KEI) (NEGATIVE) 05/12/20 05/12/20 05/12/20 Range/Units 18:20 20:43 23:42 WBC (4.0-11.0) K/uL RBC (4.30-5.90) M/uL Hgb (12.0-16.0) g/dL Hct (36.0-46.0) % MCV (80.0-98.0) fL MCH (27.0-32.0) pg MCHC (31.0-37.0) g/dL RDW Std Deviation (28.0-62.0) fl RDW Coeff of Brittny (11.0-15.0) % Plt Count (150-400) K/uL MPV (7.40-12.00) fL Neut % (Auto) (48.0-80.0) % Lymph % (Auto) (16.0-40.0) % [place] % (Auto) (0.0-15.0) % Eos % (Auto) (0.0-7.0) % Baso % (Auto) (0.0-1.5) % Neut # (Auto) (1.4-5.7) K/uL Lymph # (Auto) (0.6-2.4) K/uL [place] # (Auto) (0.0-0.8) K/uL Eos # (Auto) (0.0-0.7) K/uL Baso # (Auto) (0.0-0.1) K/uL Nucleated RBC % /100WBC Nucleated RBCs # K/uL INR APTT (18.6-31.3) SEC Sodium (136-145) mmol/L Potassium (3.5-5.1) mmol/L Chloride (98-107) mmol/L Carbon Dioxide (21.0-32.0) mmol/L BUN (7.0-18.0) mg/dL Creatinine (0.6-1.0) mg/dL Est Cr Clr Drug Dosing mL/min Estimated GFR (MDRD) ml/min Glucose (74-106) mg/dL Calcium (8.5-10.1) mg/dL Magnesium (1.8-2.4) mg/dL Total Bilirubin (0.2-1.0) mg/dL AST (15-37) IU/L ALT (14-63) IU/L Alkaline Phosphatase (46-116) U/L Creatine Kinase (26-308) U/L Troponin I < 0.050 < 0.050 (0.000-0.056) ng/mL Total Protein (6.4-8.2) g/dL Albumin (3.4-5.0) g/dL Globulin (2.6-4.0) g/dL Albumin/Globulin Ratio (0.9-1.6) Influenza Type A RNA NEGATIVE (NEGATIVE) Influenza Type B RNA NEGATIVE (NEGATIVE) SARS-CoV-2 RNA (KEI) NEGATIVE (NEGATIVE) 05/13/20 05/13/20 Range/Units 10:28 10:28 WBC 11.14 H (4.0-11.0) K/uL RBC 4.78 (4.30-5.90) M/uL Hgb 14.6 (12.0-16.0) g/dL Hct 45.0 (36.0-46.0) % MCV 94.1 (80.0-98.0) fL MCH 30.5 (27.0-32.0) pg MCHC 32.4 (31.0-37.0) g/dL RDW Std Deviation 47.4 (28.0-62.0) fl RDW Coeff of Brittny 14 (11.0-15.0) % Plt Count 261 (150-400) K/uL MPV 12.30 H (7.40-12.00) fL Neut % (Auto) 72.7 (48.0-80.0) % Lymph % (Auto) 21.5 (16.0-40.0) % [place] % (Auto) 5.0 (0.0-15.0) % Eos % (Auto) 0.4 (0.0-7.0) % Baso % (Auto) 0.4 (0.0-1.5) % Neut # (Auto) 8.1 H (1.4-5.7) K/uL Lymph # (Auto) 2.4 (0.6-2.4) K/uL [place] # (Auto) 0.6 (0.0-0.8) K/uL Eos # (Auto) 0.1 (0.0-0.7) K/uL Baso # (Auto) 0.0 (0.0-0.1) K/uL Nucleated RBC % 0.0 /100WBC Nucleated RBCs # 0 K/uL INR APTT (18.6-31.3) SEC Sodium 138 (136-145) mmol/L Potassium 3.1 L (3.5-5.1) mmol/L Chloride 101 (98-107) mmol/L Carbon Dioxide 27.4 (21.0-32.0) mmol/L BUN 14 (7.0-18.0) mg/dL Creatinine 1.0 (0.6-1.0) mg/dL Est Cr Clr Drug Dosing 47.70 mL/min Estimated GFR (MDRD) 55.0 ml/min Glucose 144 H (74-106) mg/dL Calcium 9.4 (8.5-10.1) mg/dL Magnesium (1.8-2.4) mg/dL Total Bilirubin (0.2-1.0) mg/dL AST (15-37) IU/L ALT (14-63) IU/L Alkaline Phosphatase (46-116) U/L Creatine Kinase (26-308) U/L Troponin I (0.000-0.056) ng/mL Total Protein (6.4-8.2) g/dL Albumin (3.4-5.0) g/dL Globulin (2.6-4.0) g/dL Albumin/Globulin Ratio (0.9-1.6) Influenza Type A RNA (NEGATIVE) Influenza Type B RNA (NEGATIVE) SARS-CoV-2 RNA (KEI) (NEGATIVE) Med Orders - Current: Current Medications Acetaminophen (Tylenol) 650 mg PO Q4H PRN PRN Reason: Pain (Mild 1-3)/fever Last Admin: 05/13/20 07:57 Dose: 325 mg Documented by: Hydrocodone Bitart/Acetaminophen ([place] 325-5 Mg) 1 tab PO Q4H PRN PRN Reason: Pain Last Admin: 05/13/20 08:01 Dose: 1 tab Documented by: Albuterol/Ipratropium (Duoneb 3.0-0.5 Mg/3 Ml) 3 ml NEB Q4HRRT PRN PRN Reason: Shortness of Breath Apixaban (Eliquis) 5 mg PO BID FOR[facility]LY [facility], 1928–1983 Last Admin: 05/13/20 10:42 Dose: 5 mg Documented by: Diltiazem HCl (Cardizem Cd) 240 mg PO DAILY [facility], 1928–1983 Last Admin: 05/13/20 08:09 Dose: 240 mg Documented by: Duloxetine HCl (Cymbalta) 120 mg PO DAILY [facility], [facility]–1983 Last Admin: 05/13/20 08:11 Dose: 120 mg Documented by: Escitalopram Oxalate (Lexapro) 10 mg PO DAILY [facility], [facility]1983 Last Admin: 05/13/20 08:11 Dose: 10 mg Documented by: Furosemide (Lasix) 20 mg PO DAILY [facility], [facility]–1983 Last Admin: 05/13/20 08:10 Dose: 20 mg Documented by: Lisinopril/HCTZ (Lisinopril-Hctz 10-12.5 Mg) 1 tab PO DAILY [facility], [facility]1983 Last Admin: 05/13/20 12:11 Dose: 1 tab Documented by: Hydroxyzine Pamoate (Vistaril) 25 mg PO TID PRN PRN Reason: ANXIETY/ITCHING Labetalol HCl (Normodyne) 20 mg IVPUSH Q4H PRN; Protocol PRN Reason: Hypertension Last Admin: 05/12/20 20:57 Dose: 20 mg Documented by: Lorazepam (Ativan) 1 mg PO BID [facility], [facility]1983 Last Admin: 05/13/20 08:12 Dose: 1 mg Documented by: Ondansetron HCl (Zofran Odt) 4 mg PO Q4H PRN PRN Reason: nausea, able to take PO Risperidone (Risperidal) 0.5 mg PO BEDTIME JARVIS Last Admin: 05/13/20 00:28 Dose: 0.5 mg Documented by: Discontinued Medications Hydrocodone Bitart/Acetaminophen ([place] 325-10 Mg) 1 tab PO ONETIME ONE Stop: 05/12/20 19:57 Last Admin: 05/12/20 20:00 Dose: 1 tab Documented by: Cetirizine HCl (Zyrtec) 10 mg PO ONETIME ONE Stop: 05/12/20 23:44 Last Admin: 05/13/20 00:29 Dose: 10 mg Documented by: Furosemide (Lasix) 20 mg IVPUSH NOW ONE Stop: 05/12/20 19:51 Last Admin: 05/12/20 20:23 Dose: 20 mg Documented by: Hydralazine HCl (Apresoline) 10 mg IVPUSH ONETIME ONE Stop: 05/12/20 17:34 Last Admin: 05/12/20 17:49 Dose: 10 mg Documented by: Labetalol HCl (Normodyne) 20 mg IVPUSH ONETIME ONE; Protocol Stop: 05/12/20 20:25 Last Admin: 05/13/20 03:49 Dose: Not Given Documented by: Oxycodone/Acetaminophen (Percocet 325-10 Mg) 1 tab PO ONETIME ONE Stop: 05/12/20 19:53 Last Admin: 05/12/20 20:22 Dose: Not Given Documented by: Potassium Chloride (Potassium Chloride) 40 meq PO ONETIME ONE Stop: 05/13/20 08:59 Last Admin: 05/13/20 10:41 Dose: 40 meq Documented by: Potassium Chloride (Klor-Con M20) 20 meq PO ONETIME ONE Stop: 05/13/20 11:29 Last Admin: 05/13/20 12:11 Dose: 20 meq Documented by: Risperidone (Risperidal) 0.5 mg PO BEDTIME JARVIS Last Admin: 05/13/20 03:49 Dose: Not Given Documented by: Risperidone (Risperidal) 0.5 mg PO BEDTIME JARVIS
[2020-05-13] MEDS: Labetalol 100 MG/20 ML MDV IVPUSH PRN (17:04)
[2020-05-13] MEDS ORDERED: risperiDONE 1 MG Tab PO SCH (21:00)
[2020-05-14] MEDS: Acetaminophen/HYDROcodone 325-5 MG Tab PO PRN ×2 (01:39→08:49)
[2020-05-14 06:41] LABS: BLOOD UREA NITROGEN,BUN 14 mg/dL (7.0-18.0); CHLORIDE,CL 105 mmol/L (98-107); GLUCOSE RANDOM 105 mg/dL (74-106); POTASSIUM,K 3.2 mmol/L (3.5-5.1); SODIUM,NA 140 mmol/L (136-145)
[2020-05-14] MEDS: LORazepam 1 MG Tab PO SCH (08:50)
[2020-05-14] MEDS: DULoxetine 60 MG Cap PO SCH (08:51)
[2020-05-14] MEDS: Diltiazem 120 MG Cap.CD PO SCH (08:51)
[2020-05-14] MEDS: Furosemide 20 MG Tab PO SCH (08:52)
[2020-05-14] MEDS: Escitalopram 10 MG Tab PO SCH (08:52)
[2020-05-14] MEDS: Apixaban 5 MG Tab PO SCH (08:52)
[2020-05-14] MEDS: Lisinopril/Hydrochlorothiazide 10-12.5 MG Tab PO SCH (08:53)
--- NOTE | 2020-05-14 09:51 | PCM.DCSUM1 ---
Discharge Summary - Hospital Course Brief History: Patient is a 70-year-old female with history of coronary artery disease, hypertension, depression. Patient came in for chest pain that started yesterday in the afternoon while she was watching TV described as sudden in onset, 8 out of 10 on the pain scale, described as pounding out of her chest. States that the pain is intermittent and episodic. Experienced again this morning, and this afternoon when she came into the ER. Denies any alleviating or aggravating factors. States the pain does not radiate anywhere. Described as mostly substernal. Endorses having a headache, palpitations, dizziness, visual changes associated with chest pain. Otherwise denies any fever, chills, cough, sick contacts, travel, or GI symptoms. Of note patient had significantly elevated blood pressure on admission noted to be 200/120. Was given hydralazine in the ER and blood pressure has improved to 180s over 90. ER course consisted of: EKG, chest x-ray, Covid, flu a and B, troponins, head CT without contrast. Right Hip Diagnosis: Stroke: No - Discharge Data Discharge Date: 05/14/20 Discharge Disposition: Home, Self-Care 01 Condition: Stable - Referral to Home Health Primary Care Physician: PCP None - Patient Summary/Data Hospital Course: Patient is a 70-year-old female admitted for ACS rule out. All tropes were negative, no significant changes on telemetry noted. Patient states chest pain has resolved. - Patient Instructions Diet: Heart Healthy Diet Activity: As Tolerated Showering/Bathing: May Shower Notify Provider of: Fever, Increased Pain, Swelling and Redness, Drainage, Nausea and/or Vomiting - Discharge Plan *PRESCRIPTION DRUG MONITORING PROGRAM REVIEWED*: Not Applicable *COPY OF PRESCRIPTION DRUG MONITORING REPORT IN PATIENT [facility]MA ROSA: Not Applicable Prescriptions/Med Rec: hydrOXYzine pamoate [Hydroxyzine Pamoate] 25 mg PO TID PRN #30 PRN Reason: ANXIETY/ITCHING Lisinopril/Hydrochlorothiazide [Lisinopril-HCTZ 10-12.5 MG] 1 tab PO DAILY #30 tablet risperiDONE [RisperiDAL] 0.5 mg PO BEDTIME #30 tablet Home Medications: Home Meds DULoxetine HCl [Duloxetine HCl] 120 mg PO DAILY 12/22/13 [History] Apixaban [Eliquis] 5 mg PO BID 08/14/15 [History] Esomeprazole [NexIUM] 40 mg PO DAILY 08/21/17 [History] Olmesartan Medoxomil 40 mg PO DAILY 09/07/19 [History] Escitalopram [Lexapro] 10 mg PO DAILY 02/02/20 [History] Furosemide 20 mg PO DAILY 02/02/20 [History] Gabapentin [Neurontin] 600 mg PO TID 02/02/20 [History] Diclofenac Sodium 1 applic TOP QID PRN 02/23/20 [History] dilTIAZem HCL [Diltiazem 24Hr ER] 240 mg PO DAILY 02/23/20 [History] Collagenase [Santyl Oint] 1 applic TOP ASDIRECTED PRN 03/08/20 [History] Hydrocodone/Acetaminophen [Hydrocodone-Acetamin 10-325 mg] 1 tab PO 6XDAY PRN 03/08/20 [History] Naloxone HCl [Narcan] 4 mg NS ONETIME PRN #1 spray 04/17/20 [Rx] Cyclobenzaprine [Flexeril] 5 mg PO QID PRN 05/13/20 [History] LORazepam [Ativan] 2 mg PO TID PRN 05/13/20 [History] Lisinopril/Hydrochlorothiazide [Lisinopril-HCTZ 10-12.5 MG] 1 tab PO DAILY #30 tablet 05/13/20 [Rx] hydrOXYzine pamoate [Hydroxyzine Pamoate] 25 mg PO TID PRN #30 05/13/20 [Rx] risperiDONE [RisperiDAL] 0.5 mg PO BEDTIME #30 tablet 05/13/20 [Rx] traMADol [Ultram] 50 mg PO BID PRN 05/13/20 [History] Oxygen Therapy Mode: Room Air Patient Handouts: Hydrochlorothiazide, HCTZ; Lisinopril tablets, Acute Coronary Syndrome, Risperidone tablets, Hydroxyzine capsules or tablets Referrals: Meghna Irby DO [Ordering Only Provider] - (Please call your primary provider and set up a 1week follow up appointment. Thank you! ) - Discharge Summary/Plan Comment DC Time >30 min.: No Discharge Summary/Plan Comment: 70-year-old female was worked up for ACS rule out. Fortunately chest pain resolved, troponins were negative, with no telemetry changes; ACS was ruled out. Patient states she is feeling better, would like to go home. There were no overnight events, patient is much improved this morning with labs looking good however potassium was 3.2 therefore will replete by giving 60 p.o. prior to discharge. For possible delusion of having maggots patient was started on risperidone. Patient is not of any threat to herself or others and otherwise stable from a medical standpoint. Furthermore will be sent home with topical antifungal with steroid combination cream to apply to thigh affected area with rash. Furthermore lisinopril hydrochlorothiazide combination was increased to 25 mg daily which should help control blood pressure better. Patient is to follow-up with PCP and Dr. Peralta closely after discharge. - Patient Data Vitals - Most Recent: Last Vital Signs Temp 98.3 F 05/14/20 09:00 Pulse 85 05/14/20 09:00 Resp 18 05/14/20 09:00 BP 196/87 H 05/14/20 09:00 Pulse Ox 93 L 05/14/20 09:00 Weight - Most Recent: 182 lb 14.4 oz I&O - Last 24 hours: Intake & Output 05/13/20 05/14/20 05/14/20 22:59 06:59 14:59 Intake Total 636 450 Output Total 900 Balance -264 450 Lab Results - Last 24 hrs: Laboratory Results - last 24 hr 05/13/20 05/13/20 05/14/20 Range/Units 10:28 10:28 05:45 WBC 11.14 H 8.80 (4.0-11.0) K/uL RBC 4.78 4.22 L (4.30-5.90) M/uL Hgb 14.6 12.6 (12.0-16.0) g/dL Hct 45.0 39.7 (36.0-46.0) % MCV 94.1 94.1 (80.0-98.0) fL MCH 30.5 29.9 (27.0-32.0) pg MCHC 32.4 31.7 (31.0-37.0) g/dL RDW Std Deviation 47.4 48.9 (28.0-62.0) fl RDW Coeff of Brittny 14 14 (11.0-15.0) % Plt Count 261 231 (150-400) K/uL MPV 12.30 H 11.90 (7.40-12.00) fL Neut % (Auto) 72.7 60.3 (48.0-80.0) % Lymph % (Auto) 21.5 31.0 (16.0-40.0) % [place] % (Auto) 5.0 7.3 (0.0-15.0) % Eos % (Auto) 0.4 1.1 (0.0-7.0) % Baso % (Auto) 0.4 0.3 (0.0-1.5) % Neut # (Auto) 8.1 H 5.3 (1.4-5.7) K/uL Lymph # (Auto) 2.4 2.7 H (0.6-2.4) K/uL [place] # (Auto) 0.6 0.6 (0.0-0.8) K/uL Eos # (Auto) 0.1 0.1 (0.0-0.7) K/uL Baso # (Auto) 0.0 0.0 (0.0-0.1) K/uL Nucleated RBC % 0.0 0.0 /100WBC Nucleated RBCs # 0 0 K/uL Sodium 138 (136-145) mmol/L Potassium 3.1 L (3.5-5.1) mmol/L Chloride 101 (98-107) mmol/L Carbon Dioxide 27.4 (21.0-32.0) mmol/L BUN 14 (7.0-18.0) mg/dL Creatinine 1.0 (0.6-1.0) mg/dL Est Cr Clr Drug Dosing 47.70 mL/min Estimated GFR (MDRD) 55.0 ml/min Glucose 144 H (74-106) mg/dL Calcium 9.4 (8.5-10.1) mg/dL 05/14/20 Range/Units 05:45 WBC (4.0-11.0) K/uL RBC (4.30-5.90) M/uL Hgb (12.0-16.0) g/dL Hct (36.0-46.0) % MCV (80.0-98.0) fL MCH (27.0-32.0) pg MCHC (31.0-37.0) g/dL RDW Std Deviation (28.0-62.0) fl RDW Coeff of Brittny (11.0-15.0) % Plt Count (150-400) K/uL MPV (7.40-12.00) fL Neut % (Auto) (48.0-80.0) % Lymph % (Auto) (16.0-40.0) % [place] % (Auto) (0.0-15.0) % Eos % (Auto) (0.0-7.0) % Baso % (Auto) (0.0-1.5) % Neut # (Auto) (1.4-5.7) K/uL Lymph # (Auto) (0.6-2.4) K/uL [place] # (Auto) (0.0-0.8) K/uL Eos # (Auto) (0.0-0.7) K/uL Baso # (Auto) (0.0-0.1) K/uL Nucleated RBC % /100WBC Nucleated RBCs # K/uL Sodium 140 (136-145) mmol/L Potassium 3.2 L (3.5-5.1) mmol/L Chloride 105 (98-107) mmol/L Carbon Dioxide 27.0 (21.0-32.0) mmol/L BUN 14 (7.0-18.0) mg/dL Creatinine 0.9 (0.6-1.0) mg/dL Est Cr Clr Drug Dosing 53.00 mL/min Estimated GFR (MDRD) > 60.0 ml/min Glucose 105 (74-106) mg/dL Calcium 8.9 (8.5-10.1) mg/dL Med Orders - Current: Current Medications Acetaminophen (Tylenol) 650 mg PO Q4H PRN PRN Reason: Pain (Mild 1-3)/fever Last Admin: 05/13/20 07:57 Dose: 325 mg Documented by: Hydrocodone Bitart/Acetaminophen ([place] 325-5 Mg) 1 tab PO Q4H PRN PRN Reason: Pain Last Admin: 05/14/20 08:49 Dose: 1 tab Documented by: Albuterol/Ipratropium (Duoneb 3.0-0.5 Mg/3 Ml) 3 ml NEB Q4HRRT PRN PRN Reason: Shortness of Breath Apixaban (Eliquis) 5 mg PO BID [facility] Last Admin: 05/14/20 08:52 Dose: 5 mg Documented by: Diltiazem HCl (Cardizem Cd) 240 mg PO DAILY [facility] Last Admin: 05/14/20 08:51 Dose: 240 mg Documented by: Duloxetine HCl (Cymbalta) 120 mg PO DAILY [facility] Last Admin: 05/14/20 08:51 Dose: 120 mg Documented by: Escitalopram Oxalate (Lexapro) 10 mg PO DAILY [facility] Last Admin: 05/14/20 08:52 Dose: 10 mg Documented by: Furosemide (Lasix) 20 mg PO DAILY [facility] Last Admin: 05/14/20 08:52 Dose: 20 mg Documented by: Lisinopril/HCTZ (Lisinopril-Hctz 10-12.5 Mg) 1 tab PO DAILY [facility] Last Admin: 05/14/20 08:53 Dose: 1 tab Documented by: Hydroxyzine Pamoate (Vistaril) 25 mg PO TID PRN PRN Reason: ANXIETY/ITCHING Labetalol HCl (Normodyne) 20 mg IVPUSH Q4H PRN; Protocol PRN Reason: Hypertension Last Admin: 05/13/20 17:04 Dose: 20 mg Documented by: Lorazepam (Ativan) 1 mg PO BID [facility] Last Admin: 05/14/20 08:50 Dose: 1 mg Documented by: Ondansetron HCl (Zofran Odt) 4 mg PO Q4H PRN PRN Reason: nausea, able to take PO Risperidone (Risperidal) 0.5 mg PO BEDTIME [facility] Last Admin: 05/13/20 20:41 Dose: 0.5 mg Documented by: Discontinued Medications Hydrocodone Bitart/Acetaminophen ([place] 325-10 Mg) 1 tab PO ONETIME ONE Stop: 05/12/20 19:57 Last Admin: 05/12/20 20:00 Dose: 1 tab Documented by: Cetirizine HCl (Zyrtec) 10 mg PO ONETIME ONE Stop: 05/12/20 23:44 Last Admin: 05/13/20 00:29 Dose: 10 mg Documented by: Furosemide (Lasix) 20 mg IVPUSH NOW ONE Stop: 05/12/20 19:51 Last Admin: 05/12/20 20:23 Dose: 20 mg Documented by: Hydralazine HCl (Apresoline) 10 mg IVPUSH ONETIME ONE Stop: 05/12/20 17:34 Last Admin: 05/12/20 17:49 Dose: 10 mg Documented by: Labetalol HCl (Normodyne) 20 mg IVPUSH ONETIME ONE; Protocol Stop: 05/12/20 20:25 Last Admin: 05/13/20 03:49 Dose: Not Given Documented by: Oxycodone/Acetaminophen (Percocet 325-10 Mg) 1 tab PO ONETIME ONE Stop: 05/12/20 19:53 Last Admin: 05/12/20 20:22 Dose: Not Given Documented by: Potassium Chloride (Potassium Chloride) 40 meq PO ONETIME ONE Stop: 05/13/20 08:59 Last Admin: 05/13/20 10:41 Dose: 40 meq Documented by: Potassium Chloride (Klor-Con M20) 20 meq PO ONETIME ONE Stop: 05/13/20 11:29 Last Admin: 05/13/20 12:11 Dose: 20 meq Documented by: Risperidone (Risperidal) 0.5 mg PO BEDTIME [facility] Last Admin: 05/13/20 03:49 Dose: Not Given Documented by: Risperidone (Risperidal) 0.5 mg PO BEDTIME [facility]
[2020-05-14] MEDS: Labetalol 100 MG/20 ML MDV IVPUSH PRN (10:27)
[2020-05-14] MEDS ORDERED: Potassium Chloride 20 MEQ Tab.ER PO ONE (10:31)
[2020-05-14 11:37] VITALS: BP 178/74; PULSE 60
[2020-05-15] MEDS ORDERED: Lisinopril/Hydrochlorothiazide 10-12.5 MG Tab PO ONE (10:39)
== END 2020-05-14 13:08 | disposition home or self-care (01) ==
LOC: MW.ED 16:58 → MW.MS 19:44
PROVIDERS: ADMIT Student in an Organized Health Care Education/Training Program; ATTEND Student in an Organized Health Care Education/Training Program
DX: R07.2 Precordial pain (principal); I25.10 Atherosclerotic heart disease of native coronary artery without angina pectoris; I10 Essential (primary) hypertension; F32.9 Major depressive disorder, single episode, unspecified; E78.00 Pure hypercholesterolemia, unspecified; J44.9 Chronic obstructive pulmonary disease, unspecified; I48.91 Unspecified atrial fibrillation; E66.9 Obesity, unspecified; Z20.828 Contact with and (suspected) exposure to other viral communicable diseases; Z79.899 Other long term (current) drug therapy; Z88.5 Allergy status to narcotic agent; Z88.8 Allergy status to other drugs, medicaments and biological substances; Z86.73 Personal history of transient ischemic attack (TIA), and cerebral infarction without residual deficits; Z98.890 Other specified postprocedural states
CPT/HCPCS: 0240U; 36415; 70450; 71045; 80048; 80053; 82550; 83735; 84484; 85025; 85610; 85730; 93005; 96374; 96375; 99285; A9270; J0360; J1940; J3490; 93010; 96376; 99284; G0378

== ENCOUNTER 2020-07-29 03:47 | Observation (INO) | payer MEDICARE, MEDICAID ==
[2020-07-29] MEDS ORDERED: Sodium Chloride 0.9% 10 ML Syringe FLUSH PRN (03:49)
[2020-07-29] MEDS ORDERED: Sodium Chloride 0.9% 2.5 ML Syringe FLUSH PRN (03:49)
--- NOTE | 2020-07-29 03:49 | EDM.PDOC ---
ED HPI GENERAL MEDICAL PROBLEM - General Stated Complaint: FALL Time Seen by Provider: 07/29/20 03:48 Source of Information: Reports: Patient, EMS History Limitations: Reports: Altered Mental Status - History of Present Illness INITIAL COMMENTS - FREE TEXT/NARRATIVE: 70-year-old female past medical history CVA, left-sided weakness, A. fib on Eliquis, hypertension, hyperlipidemia, wheelchair-bound at baseline, chronic benzodiazepine use, chronic opioid use, history of admits for encephalopathy, history of admits for altered mental status, history of admits for misuse of medication presents after being found face down in the hallway of her apartment complex by a neighbor. Of note patient is prescribed tramadol, Risperdal, hydroxyzine, Ativan, and Giltner. - Related Data Allergies Allergy/AdvReac Type Severity Reaction Status Date / Time codeine Allergy Intermediate Airway Verified 07/29/20 04:02 Tightness meperidine HCl [From Demerol] Allergy Intermediate Airway Verified 07/29/20 04:02 Tightness morphine Allergy Intermediate Airway Verified 07/29/20 04:02 Tightness oxycodone [Oxycodone] Allergy Intermediate Airway Verified 07/29/20 04:02 Tightness lidocaine Allergy Anaphylactic Verified 07/29/20 04:02 Shock orphenadrine Allergy Airway Verified 07/29/20 04:02 Tightness varenicline tartrate Allergy Airway Verified 07/29/20 04:02 [From Chantix] Tightness Home Meds: Home Meds DULoxetine HCl [Duloxetine HCl] 120 mg PO DAILY 12/22/13 [History] Apixaban [Eliquis] 5 mg PO BID 08/14/15 [History] Esomeprazole [NexIUM] 40 mg PO DAILY 08/21/17 [History] Olmesartan Medoxomil 40 mg PO DAILY 09/07/19 [History] Escitalopram [Lexapro] 10 mg PO DAILY 02/02/20 [History] Furosemide 20 mg PO DAILY 02/02/20 [History] Gabapentin [Neurontin] 600 mg PO TID 02/02/20 [History] Diclofenac Sodium 1 applic TOP QID PRN 02/23/20 [History] dilTIAZem HCL [Diltiazem 24Hr ER] 240 mg PO DAILY 02/23/20 [History] Collagenase [Santyl Oint] 1 applic TOP ASDIRECTED PRN 03/08/20 [History] Hydrocodone/Acetaminophen [Hydrocodone-Acetamin 10-325 mg] 1 tab PO 6XDAY PRN 03/08/20 [History] Naloxone HCl [Narcan] 4 mg NS ONETIME PRN #1 spray 04/17/20 [Rx] Cyclobenzaprine [Flexeril] 5 mg PO QID PRN 05/13/20 [History] LORazepam [Ativan] 2 mg PO TID PRN 05/13/20 [History] hydrOXYzine pamoate [Hydroxyzine Pamoate] 25 mg PO TID PRN #30 05/13/20 [Rx] risperiDONE [RisperiDAL] 0.5 mg PO BEDTIME #30 tablet 05/13/20 [Rx] traMADol [Ultram] 50 mg PO BID PRN 05/13/20 [History] Betamethasone/Clotrimazole [Lotrisone] 15 gm TOP BID #1 tube 05/14/20 [Rx] Hydrochlorothiazide/Lisinopril [Lisinopril-HCTZ 20-12.5 MG] 1 tab PO DAILY #30 tab 05/14/20 [Rx] Past Medical History HEENT History: Reports: Allergic Rhinitis, Impaired Vision, Other (See Below) Other HEENT History: wears reading glasses Cardiovascular History: Reports: Afib, High Cholesterol, Hypertension Respiratory History: Reports: Bronchitis, Recurrent, COPD, SOB, Other (See Below) Other Respiratory History: was tested for sleep apnea last week, no results yet Gastrointestinal History: Reports: Cholelithiasis, GERD Genitourinary History: Reports: None 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: None Hematologic History: Reports: None Immunologic History: Reports: None Oncologic (Cancer) History: Reports: None Dermatologic History: Reports: None - Infectious Disease History Infectious Disease History: Reports: Measles - Past Surgical History Head Surgeries/Procedures: Reports: None HEENT Surgical History: Reports: Cataract Surgery Cardiovascular Surgical History: Reports: Pacer Respiratory Surgical History: Reports: None GI Surgical History: Reports: Bariatric Procedure, Cholecystectomy Female Surgical History: Reports: None Endocrine Surgical History: Reports: None Neurological Surgical History: Reports: None Musculoskeletal Surgical History: Reports: Hip Replacement, Knee Replacement, ORIF Other Musculoskeletal Surgeries/Procedures:: states has hip surgery x11 Social & Family History - Family History Family Medical History: No Pertinent Family History HEENT: Reports: Other (See Below) - Caffeine Use Caffeine Use: Reports: Coffee, Soda Caffeine Use Comment: Unable to obtain. Pt is falling in and out of sleep, and is groggy. ED ROS GENERAL - Review of Systems Review Of Systems: Unable To Obtain (clinical condition) Reason Not Obtained: AMS ED EXAM, GENERAL - Physical Exam Exam: See Below Exam Limited By: Altered Mental Status General Appearance: Alert, WD/WN, No Apparent Distress, Other (drowsy but does arouse to verbal stimuli) Eye Exam: Bilateral Eye: PERRL Ears: Normal External Exam Throat/Mouth: Normal Voice, No Airway Compromise Head: Atraumatic, Normocephalic Neck: Normal Inspection, Supple, Non-Tender Respiratory/Chest: No Respiratory Distress, No Accessory Muscle Use, Wheezing Cardiovascular: Normal Peripheral Pulses, No Edema GI/Abdominal: Soft, Non-Tender Extremities: Other (legs appear atrophied; right leg appears shorter than left but I suspect this is chronic as patient has no tenderness to hip and full passive ROM b/l thighs without pain) Psychiatric: Flat Affect Skin Exam: Warm, Dry, Intact, Normal Color #1 Interpretation EKG Date: 07/29/20 Time: 03:52 Rhythm: Other (atrial-paced rhythm) Rate (Beats/Min): 63 [place]: Normal P-Wave: Present QRS: Normal ST-T: Normal QT: Normal NH/PQ Interval: 196 EKG Interpretation Comments: no ischemic changes Course - Vital Signs Last Recorded V/S: Last Vital Signs Temp 98.1 F 07/29/20 03:50 Pulse 69 07/29/20 03:50 Resp 16 07/29/20 03:50 BP 133/68 07/29/20 03:50 Pulse Ox 97 07/29/20 03:50 - Orders/Labs/Meds Orders: Active Orders 24 hr Category Date Time Status Cardiac Monitoring [RC] . DIRECTED Care 07/29/20 03:49 Active EKG Documentation Completion [RC] STAT Care 07/29/20 03:49 Active Insert Urinary Catheter [OM.PC] Q24H Care 07/29/20 04:45 Ordered Pulse Oximetry [RC] ASDIRECTED Care 07/29/20 03:49 Active Urinary Catheter Assessment [RC] ASDIRECTED Care 07/29/20 04:43 Active Cervical Spine wo Cont [CT] Stat Exams 07/29/20 04:03 Taken Chest 1V Frontal [CR] Stat Exams 07/29/20 03:50 Taken Hip Min 2V or 3V w Pelvis Rt [CR] Stat Exams 07/29/20 04:13 Taken Sodium Chloride 0.9% [Saline Flush] Med 07/29/20 03:49 Active 10 ml FLUSH ASDIRECTED PRN Sodium Chloride 0.9% [Saline Flush] Med 07/29/20 03:49 Active 2.5 ml FLUSH ASDIRECTED PRN Saline Lock Insert [OM.PC] Stat Oth 07/29/20 03:49 Ordered Medication Orders Sodium Chloride (Sodium Chloride 0.9% 10 Ml Syringe) 10 ml FLUSH ASDIRECTED PRN PRN Reason: Keep Vein Open Last Admin: 07/29/20 03:54 Dose: 10 ml Documented by: LIDIA Sodium Chloride (Sodium Chloride 0.9% 2.5 Ml Syringe) 2.5 ml FLUSH ASDIRECTED PRN PRN Reason: Keep Vein Open Last Admin: 07/29/20 03:53 Dose: 2.5 ml Documented by: LIDIA Labs: Laboratory Tests 07/29/20 07/29/20 07/29/20 Range/Units 03:50 03:50 03:50 WBC 10.96 (4.0-11.0) K/uL RBC 4.12 L (4.30-5.90) M/uL Hgb 12.4 (12.0-16.0) g/dL Hct 38.8 (36.0-46.0) % MCV 94.2 (80.0-98.0) fL MCH 30.1 (27.0-32.0) pg MCHC 32.0 (31.0-37.0) g/dL RDW Std Deviation 49.4 (28.0-62.0) fl RDW Coeff of Brittny 14 (11.0-15.0) % Plt Count 217 (150-400) K/uL MPV 12.30 H (7.40-12.00) fL Neut % (Auto) 66.3 (48.0-80.0) % Lymph % (Auto) 24.4 (16.0-40.0) % [place] % (Auto) 6.5 (0.0-15.0) % Eos % (Auto) 2.5 (0.0-7.0) % Baso % (Auto) 0.3 (0.0-1.5) % Neut # (Auto) 7.3 H (1.4-5.7) K/uL Lymph # (Auto) 2.7 H (0.6-2.4) K/uL [place] # (Auto) 0.7 (0.0-0.8) K/uL Eos # (Auto) 0.3 (0.0-0.7) K/uL Baso # (Auto) 0.0 (0.0-0.1) K/uL Nucleated RBC % 0.0 /100WBC Nucleated RBCs # 0 K/uL INR 1.07 APTT 31.6 H (18.6-31.3) SEC ABG pH (7.35-7.45) ABG pCO2 (35-45) mmHG ABG pO2 (75-100) mmHG ABG HCO3 (22-26) mEq/L ABG Total CO2 ABG Base Excess (-2.0-2.0) Lactate 0.8 (0.20-2.00) mmol/L Sodium (136-145) mmol/L Potassium (3.5-5.1) mmol/L Chloride (98-107) mmol/L Carbon Dioxide (21.0-32.0) mmol/L BUN (7.0-18.0) mg/dL Creatinine (0.6-1.0) mg/dL Est Cr Clr Drug Dosing Estimated GFR (MDRD) ml/min Glucose (74-106) mg/dL Calcium (8.5-10.1) mg/dL Magnesium (1.8-2.4) mg/dL Total Bilirubin (0.2-1.0) mg/dL AST (15-37) IU/L ALT (14-63) IU/L Alkaline Phosphatase (46-116) U/L Creatine Kinase (26-308) U/L Troponin I (0.000-0.056) ng/mL B-Natriuretic Peptide (<100) PG/ML Total Protein (6.4-8.2) g/dL Albumin (3.4-5.0) g/dL Globulin (2.6-4.0) g/dL Albumin/Globulin Ratio (0.9-1.6) Lipase (73-393) U/L Urine Color Urine Appearance Urine pH (5.0-8.0) Ur Specific [place] (1.001-1.035) Urine Protein (NEGATIVE) mg/dL Urine Glucose (UA) (NEGATIVE) mg/dL Urine Ketones (NEGATIVE) mg/dL Urine Occult Blood (NEGATIVE) Urine Nitrite (NEGATIVE) Urine Bilirubin (NEGATIVE) Urine Urobilinogen (<2.0) EU/dL Ur Leukocyte Esterase (NEGATIVE) Urine Opiates Screen (NEGATIVE) Ur Oxycodone Screen (NEGATIVE) Urine Methadone Screen (NEGATIVE) Ur Barbiturates Screen (NEGATIVE) Ur Phencyclidine Scrn (NEGATIVE) Ur Amphetamine Screen (NEGATIVE) U Methamphetamines Scrn (NEGATIVE) U Benzodiazepines Scrn (NEGATIVE) U Cocaine Metab Screen (NEGATIVE) U Marijuana (THC) Screen (NEGATIVE) Ethyl Alcohol mg/dL SARS-CoV-2 RNA (KEI) (NEGATIVE) 07/29/20 07/29/20 07/29/20 Range/Units 03:50 03:50 03:55 WBC (4.0-11.0) K/uL RBC (4.30-5.90) M/uL Hgb (12.0-16.0) g/dL Hct (36.0-46.0) % MCV (80.0-98.0) fL MCH (27.0-32.0) pg MCHC (31.0-37.0) g/dL RDW Std Deviation (28.0-62.0) fl RDW Coeff of Brittny (11.0-15.0) % Plt Count (150-400) K/uL MPV (7.40-12.00) fL Neut % (Auto) (48.0-80.0) % Lymph % (Auto) (16.0-40.0) % [place] % (Auto) (0.0-15.0) % Eos % (Auto) (0.0-7.0) % Baso % (Auto) (0.0-1.5) % Neut # (Auto) (1.4-5.7) K/uL Lymph # (Auto) (0.6-2.4) K/uL [place] # (Auto) (0.0-0.8) K/uL Eos # (Auto) (0.0-0.7) K/uL Baso # (Auto) (0.0-0.1) K/uL Nucleated RBC % /100WBC Nucleated RBCs # K/uL INR APTT (18.6-31.3) SEC ABG pH 7.384 (7.35-7.45) ABG pCO2 48 H (35-45) mmHG ABG pO2 57 L (75-100) mmHG ABG HCO3 29 H (22-26) mEq/L ABG Total CO2 26.3 ABG Base Excess 2.9 H (-2.0-2.0) Lactate (0.20-2.00) mmol/L Sodium 142 (136-145) mmol/L Potassium 3.8 (3.5-5.1) mmol/L Chloride 105 (98-107) mmol/L Carbon Dioxide 28.9 (21.0-32.0) mmol/L BUN 11 (7.0-18.0) mg/dL Creatinine 1.0 (0.6-1.0) mg/dL Est Cr Clr Drug Dosing TNP Estimated GFR (MDRD) 55.0 ml/min Glucose 98 (74-106) mg/dL Calcium 8.0 L (8.5-10.1) mg/dL Magnesium 2.0 (1.8-2.4) mg/dL Total Bilirubin 0.2 (0.2-1.0) mg/dL AST 9 L (15-37) IU/L ALT 18 (14-63) IU/L Alkaline Phosphatase 168 H (46-116) U/L Creatine Kinase 46 (26-308) U/L Troponin I < 0.050 (0.000-0.056) ng/mL B-Natriuretic Peptide 71 (<100) PG/ML Total Protein 6.4 (6.4-8.2) g/dL Albumin 2.9 L (3.4-5.0) g/dL Globulin 3.5 (2.6-4.0) g/dL Albumin/Globulin Ratio 0.8 L (0.9-1.6) Lipase 32 L (73-393) U/L Urine Color Urine Appearance Urine pH (5.0-8.0) Ur Specific [place] (1.001-1.035) Urine Protein (NEGATIVE) mg/dL Urine Glucose (UA) (NEGATIVE) mg/dL Urine Ketones (NEGATIVE) mg/dL Urine Occult Blood (NEGATIVE) Urine Nitrite (NEGATIVE) Urine Bilirubin (NEGATIVE) Urine Urobilinogen (<2.0) EU/dL Ur Leukocyte Esterase (NEGATIVE) Urine Opiates Screen (NEGATIVE) Ur Oxycodone Screen (NEGATIVE) Urine Methadone Screen (NEGATIVE) Ur Barbiturates Screen (NEGATIVE) Ur Phencyclidine Scrn (NEGATIVE) Ur Amphetamine Screen (NEGATIVE) U Methamphetamines Scrn (NEGATIVE) U Benzodiazepines Scrn (NEGATIVE) U Cocaine Metab Screen (NEGATIVE) U Marijuana (THC) Screen (NEGATIVE) Ethyl Alcohol < 3.0 mg/dL SARS-CoV-2 RNA (KEI) (NEGATIVE) 07/29/20 07/29/20 07/29/20 Range/Units 04:38 04:38 04:40 WBC (4.0-11.0) K/uL RBC (4.30-5.90) M/uL Hgb (12.0-16.0) g/dL Hct (36.0-46.0) % MCV (80.0-98.0) fL MCH (27.0-32.0) pg MCHC (31.0-37.0) g/dL RDW Std Deviation (28.0-62.0) fl RDW Coeff of Brittny (11.0-15.0) % Plt Count (150-400) K/uL MPV (7.40-12.00) fL Neut % (Auto) (48.0-80.0) % Lymph % (Auto) (16.0-40.0) % [place] % (Auto) (0.0-15.0) % Eos % (Auto) (0.0-7.0) % Baso % (Auto) (0.0-1.5) % Neut # (Auto) (1.4-5.7) K/uL Lymph # (Auto) (0.6-2.4) K/uL [place] # (Auto) (0.0-0.8) K/uL Eos # (Auto) (0.0-0.7) K/uL Baso # (Auto) (0.0-0.1) K/uL Nucleated RBC % /100WBC Nucleated RBCs # K/uL INR APTT (18.6-31.3) SEC ABG pH (7.35-7.45) ABG pCO2 (35-45) mmHG ABG pO2 (75-100) mmHG ABG HCO3 (22-26) mEq/L ABG Total CO2 ABG Base Excess (-2.0-2.0) Lactate (0.20-2.00) mmol/L Sodium (136-145) mmol/L Potassium (3.5-5.1) mmol/L Chloride (98-107) mmol/L Carbon Dioxide (21.0-32.0) mmol/L BUN (7.0-18.0) mg/dL Creatinine (0.6-1.0) mg/dL Est Cr Clr Drug Dosing Estimated GFR (MDRD) ml/min Glucose (74-106) mg/dL Calcium (8.5-10.1) mg/dL Magnesium (1.8-2.4) mg/dL Total Bilirubin (0.2-1.0) mg/dL AST (15-37) IU/L ALT (14-63) IU/L Alkaline Phosphatase (46-116) U/L Creatine Kinase (26-308) U/L Troponin I (0.000-0.056) ng/mL B-Natriuretic Peptide (<100) PG/ML Total Protein (6.4-8.2) g/dL Albumin (3.4-5.0) g/dL Globulin (2.6-4.0) g/dL Albumin/Globulin Ratio (0.9-1.6) Lipase (73-393) U/L Urine Color YELLOW Urine Appearance CLEAR Urine pH 6.0 (5.0-8.0) Ur Specific [place] 1.025 (1.001-1.035) Urine Protein NEGATIVE (NEGATIVE) mg/dL Urine Glucose (UA) NEGATIVE (NEGATIVE) mg/dL Urine Ketones NEGATIVE (NEGATIVE) mg/dL Urine Occult Blood NEGATIVE (NEGATIVE) Urine Nitrite NEGATIVE (NEGATIVE) Urine Bilirubin NEGATIVE (NEGATIVE) Urine Urobilinogen 1.0 (<2.0) EU/dL Ur Leukocyte Esterase NEGATIVE (NEGATIVE) Urine Opiates Screen POSITIVE (NEGATIVE) Ur Oxycodone Screen NEGATIVE (NEGATIVE) Urine Methadone Screen NEGATIVE (NEGATIVE) Ur Barbiturates Screen NEGATIVE (NEGATIVE) Ur Phencyclidine Scrn NEGATIVE (NEGATIVE) Ur Amphetamine Screen NEGATIVE (NEGATIVE) U Methamphetamines Scrn NEGATIVE (NEGATIVE) U Benzodiazepines Scrn POSITIVE (NEGATIVE) U Cocaine Metab Screen NEGATIVE (NEGATIVE) U Marijuana (THC) Screen NEGATIVE (NEGATIVE) Ethyl Alcohol mg/dL SARS-CoV-2 RNA (KEI) NEGATIVE (NEGATIVE) Meds: Medications Generic Name Dose Route Start Last Admin Trade Name Freq PRN Reason Stop Dose Admin Sodium Chloride 10 ml 07/29/20 03:49 07/29/20 03:54 Sodium Chloride 0.9% 10 Ml Syringe FLUSH 10 ml ASDIRECTED PRN Administration Keep Vein Open Sodium Chloride 2.5 ml 07/29/20 03:49 07/29/20 03:53 Sodium Chloride 0.9% 2.5 Ml Syringe FLUSH 2.5 ml ASDIRECTED PRN Administration Keep Vein Open Discontinued Medications Generic Name Dose Route Start Last Admin Trade Name Freq PRN Reason Stop Dose Admin Naloxone HCl 0.4 mg 07/29/20 04:21 07/29/20 04:51 Naloxone 0.4 Mg/Ml Sdv IVPUSH 07/29/20 04:22 0.4 mg ONETIME ONE Administration Naloxone HCl 0.4 mg 07/29/20 04:22 07/29/20 04:54 Naloxone 0.4 Mg/Ml Sdv IVPUSH 07/29/20 04:23 0.4 mg ONETIME ONE Administration Naloxone HCl Confirm 07/29/20 04:24 07/29/20 04:48 Naloxone 0.4 Mg/Ml Syringe Administered 07/29/20 04:25 Not Given Dose 0.4 mg .ROUTE .STK-MED ONE Naloxone HCl Confirm 07/29/20 04:26 07/29/20 04:54 Naloxone 0.4 Mg/Ml Syringe Administered 07/29/20 04:27 Not Given Dose 0.4 mg .ROUTE .STK-MED ONE - Re-Assessments/Exams Free Text/Narrative Re-Assessment/Exam: 07/29/20 04:14 Patient is protecting her airway. She is drowsy but arousable to verbal stimuli. Will get broad work-up considering limited history. We will follow up results and disposition accordingly. 07/29/20 04:22 Looking through patient's chart it appears that she has presented similarly in the past secondary to pain medication she had good response to Narcan last time. Will trial 0.4 mg Narcan and reassess. 07/29/20 04:40 ABG most likely venous blood. No hypercapnia. Patient's oxygen saturation remains above 95% on room air. 07/29/20 04:44 On patient's medication list she is noted to have rx for very high doses of sedating medications. She is on ativan 2mg TID, hydrocodone 10mg 6x daily, trazadone nightly, hydroxyzine, and risperidone. She has been counseled in the past regarding the dangerous combination of her medications. 07/29/20 04:48 EtOH negative. Patient's UDS is remarkable for opioids and benzos which correlates with patient's medication history. Will trial 0.4 mg Narcan. 07/29/20 04:57 Patient with minimal response to 0.4 mg Narcan x2. She maintains her airway. We will follow-up additional labs and imaging and disposition accordingly. 07/29/20 05:03 Labs are grossly unremarkable. We will follow-up Covid and head CT. Patient will likely require admission as I do not believe she has a safe discharge. 07/29/20 06:[address] Swartz who agrees to admit patient. Departure - Departure Time of Disposition: 06:07 Disposition: Refer to Observation Condition: Fair Clinical Impression: Polypharmacy - Discharge Information Referrals: PCP,None [Primary Care Provider] - Sepsis Event Note (ED) - Focused Exam Vital Signs: Vital Signs Temp Pulse Resp BP Pulse Ox 07/29/20 03:50 98.1 F 69 16 133/68 97 - My Orders Last 24 Hours: My Active Orders 07/29/20 03:49 Cardiac Monitoring [RC] . DIRECTED EKG Documentation Completion [RC] STAT Pulse Oximetry [RC] ASDIRECTED Sodium Chloride 0.9% [Saline Flush] 10 ml FLUSH ASDIRECTED PRN Sodium Chloride 0.9% [Saline Flush] 2.5 ml FLUSH ASDIRECTED PRN Saline Lock Insert [OM.PC] Stat 07/29/20 03:50 Chest 1V Frontal [CR] Stat 07/29/20 04:03 Cervical Spine wo Cont [CT] Stat 07/29/20 04:13 Hip Min 2V or 3V w Pelvis Rt [CR] Stat 07/29/20 04:43 Urinary Catheter Assessment [RC] ASDIRECTED 07/29/20 04:45 Insert Urinary Catheter [OM.PC] Q24H - Assessment/Plan Last 24 Hours: My Active Orders 07/29/20 03:49 Cardiac Monitoring [RC] . DIRECTED EKG Documentation Completion [RC] STAT Pulse Oximetry [RC] ASDIRECTED Sodium Chloride 0.9% [Saline Flush] 10 ml FLUSH ASDIRECTED PRN Sodium Chloride 0.9% [Saline Flush] 2.5 ml FLUSH ASDIRECTED PRN Saline Lock Insert [OM.PC] Stat 07/29/20 03:50 Chest 1V Frontal [CR] Stat 07/29/20 04:03 Cervical Spine wo Cont [CT] Stat 07/29/20 04:13 Hip Min 2V or 3V w Pelvis Rt [CR] Stat 07/29/20 04:43 Urinary Catheter Assessment [RC] ASDIRECTED 07/29/20 04:45 Insert Urinary Catheter [OM.PC] Q24H
[2020-07-29 04:15] LABS: BLOOD UREA NITROGEN,BUN 11 mg/dL (7.0-18.0); CARBON DIOXIDE,CO2 28.9 mmol/L (21.0-32.0); CHLORIDE,CL 105 mmol/L (98-107); GLUCOSE RANDOM 98 mg/dL (74-106); LIPASE 32 U/L (73-393); POTASSIUM,K 3.8 mmol/L (3.5-5.1); SODIUM,NA 142 mmol/L (136-145)
[2020-07-29] MEDS ORDERED: Naloxone 0.4 MG/ML SDV IVPUSH ONE ×2 (04:21→04:22)
[2020-07-29] MEDS ORDERED: Naloxone 0.4 MG/ML Syringe ONE ×2 (04:24→04:26)
--- NOTE | 2020-07-29 05:28 | CT ---
Indication: Fall, altered mental status Technique: Nonenhanced axial CT imaging through the head. Sagittal and coronal reconstructions are provided. Comparison: CT head without contrast 05/12/2020 Findings: There is no intracranial hemorrhage, edema, or mass effect. Sanders-white matter differentiation is preserved. There is stable cerebral volume loss with compensatory enlargement of the 3rd and lateral ventricles. The basal cisterns are patent. The calvarium is intact. The visualized paranasal sinuses and mastoid air cells are aerated. Impression: No acute intracranial process. Please note that all CT scans at this facility use dose modulation, iterative reconstruction, and/or weight-based dosing when appropriate to reduce radiation dose to as low as reasonably achievable. Dictated by Julia Brito MD @ Jul 29 2020 5:26AM Signed by Dr. Julia Brito @ Jul 29 2020 5:26AM
--- NOTE | 2020-07-29 06:18 | CR ---
Indication: Right lung toward the left Technique: Portable supine AP view of the pelvis and 2 views of the right hip. Comparison: X-ray pelvis and right hip 04/17/2020 Findings/Impression : No evidence of acute fracture. Right hip arthroplasty is noted. There are stable surgical changes to the right acetabulum and proximal femur. Dictated by Julia Brito MD @ Jul 29 2020 6:14AM Signed by Dr. Julia Brito @ Jul 29 2020 6:16AM
[2020-07-29 07:48] VITALS: BP 164/61
[2020-07-29] MEDS ORDERED: Sodium Chloride 0.9% 1,000 ML IV SCH (08:15)
[2020-07-29] MEDS ORDERED: Acetaminophen 325 MG Tab PO PRN (08:15)
[2020-07-29 08:32] VITALS: PULSE 82
--- NOTE | 2020-07-29 11:32 | PCM.HP.2 ---
H&P History of Present Illness - General Date of Service: 07/29/20 Admit Problem/Dx: Admission Diagnosis/Problem Admission Diagnosis/Problem Polypharmacy Source of Information: Patient, Old Records - History of Present Illness Initial Comments - Free Text/Narative: 70-year-old female admitted to the medical floor for altered mental status due to suspected polypharmacy. Patient presented to the ED with altered mental status. Patient was found at home facedown in the hallway of her apartment complex by her neighbor. Past medical history CVA, left-sided weakness, A. fib on Eliquis, hypertension, hyperlipidemia, wheelchair-bound at baseline, chronic benzodiazepine use, chronic opioid use, history of admits for encephalopathy, history of admits for altered mental status, history of admits for misuse of medication. White blood cell count within normal range normal, urinalysis negative, urine tox screen positive for opioids and benzodiazepines. CT head negative On admission patient was sleeping and not responsive to questioning. When patient woke up, she stated that she felt much better and was going to go home. Patient advised to spend one night under observation but she refused. Patient advised that if she left she would have to be documented leaving AMA, patient agrees. Patient left medical floor AMA and recommendation made for the patient to follow-up with primary care provider to discuss medications and dosages. Discharge Plan: Patient left AMA. Recommendation given for the patient to follow-up with primary care provider to discuss medication dosages. Patient agrees. - Related Data Allergies/Adverse Reactions: Allergies Allergy/AdvReac Type Severity Reaction Status Date / Time codeine Allergy Intermediate Airway Verified 07/29/20 04:02 Tightness meperidine HCl [From Demerol] Allergy Intermediate Airway Verified 07/29/20 04:02 Tightness morphine Allergy Intermediate Airway Verified 07/29/20 04:02 Tightness oxycodone [Oxycodone] Allergy Intermediate Airway Verified 07/29/20 04:02 Tightness lidocaine Allergy Anaphylactic Verified 07/29/20 04:02 Shock orphenadrine Allergy Airway Verified 07/29/20 04:02 Tightness varenicline tartrate Allergy Airway Verified 07/29/20 04:02 [From Chantix] Tightness Home Medications: Home Meds DULoxetine HCl [Duloxetine HCl] 120 mg PO DAILY 12/22/13 [History] Apixaban [Eliquis] 5 mg PO BID 08/14/15 [History] Esomeprazole [NexIUM] 40 mg PO DAILY 08/21/17 [History] Olmesartan Medoxomil 40 mg PO DAILY 09/07/19 [History] Escitalopram [Lexapro] 10 mg PO DAILY 02/02/20 [History] Furosemide 20 mg PO DAILY 02/02/20 [History] Gabapentin [Neurontin] 600 mg PO TID 02/02/20 [History] Diclofenac Sodium 1 applic TOP QID PRN 02/23/20 [History] dilTIAZem HCL [Diltiazem 24Hr ER] 240 mg PO DAILY 02/23/20 [History] Collagenase [Santyl Oint] 1 applic TOP ASDIRECTED PRN 03/08/20 [History] Hydrocodone/Acetaminophen [Hydrocodone-Acetamin 10-325 mg] 1 tab PO 6XDAY PRN 03/08/20 [History] Naloxone HCl [Narcan] 4 mg NS ONETIME PRN #1 spray 04/17/20 [Rx] Cyclobenzaprine [Flexeril] 5 mg PO QID PRN 05/13/20 [History] LORazepam [Ativan] 2 mg PO TID PRN 05/13/20 [History] hydrOXYzine pamoate [Hydroxyzine Pamoate] 25 mg PO TID PRN #30 05/13/20 [Rx] risperiDONE [RisperiDAL] 0.5 mg PO BEDTIME #30 tablet 05/13/20 [Rx] traMADol [Ultram] 50 mg PO BID PRN 05/13/20 [History] Betamethasone/Clotrimazole [Lotrisone] 15 gm TOP BID #1 tube 05/14/20 [Rx] Hydrochlorothiazide/Lisinopril [Lisinopril/HCTZ 20-12.5 MG] 1 tab PO DAILY #30 tab 05/14/20 [Rx] Past Medical History HEENT History: Reports: Allergic Rhinitis, Impaired Vision, Other (See Below) Other HEENT History: wears reading glasses Cardiovascular History: Reports: Afib, High Cholesterol, Hypertension Respiratory History: Reports: Bronchitis, Recurrent, COPD, SOB, Other (See Below) Other Respiratory History: was tested for sleep apnea last week, no results yet Gastrointestinal History: Reports: Cholelithiasis, GERD Genitourinary History: Reports: None EYEGLASS LENS GENERATOR History: Reports: None Musculoskeletal History: Reports: Arthritis, Fracture, Osteoporosis Other Musculoskeletal History: states chronic back and right hip pain, hx of fx right wrist and right tib-fib, wheelchair bound due to hip pain and major SOB Neurological History: Reports: TIA Other Neuro History: has has TIA x2, 2009 and 2013. No residual weakness, no intervention done except physical therapy Psychiatric History: Reports: Bipolar, Depression Endocrine/Metabolic History: Reports: Obesity/BMI 30+, Other (See Below) Other Endocrine/Metabolic History: states has 2 "lumps" on thyroid as noted on ultrasound Insulin Pump Model and Manager Operations Research: None Hematologic History: Reports: None Immunologic History: Reports: None Oncologic (Cancer) History: Reports: None Dermatologic History: Reports: None - Infectious Disease History Infectious Disease History: Reports: Measles - Past Surgical History Head Surgeries/Procedures: Reports: None HEENT Surgical History: Reports: Cataract Surgery Cardiovascular Surgical History: Reports: Pacer Respiratory Surgical History: Reports: None GI Surgical History: Reports: Bariatric Procedure, Cholecystectomy Female Surgical History: Reports: None Endocrine Surgical History: Reports: None Neurological Surgical History: Reports: None Musculoskeletal Surgical History: Reports: Hip Replacement, Knee Replacement, ORIF Other Musculoskeletal Surgeries/Procedures:: states has hip surgery x11 Social & Family History - Family History Family Medical History: No Pertinent Family History HEENT: Reports: Other (See Below) - Caffeine Use Caffeine Use: Reports: Coffee, Soda Caffeine Use Comment: Unable to obtain. Pt is falling in and out of sleep, and is groggy. H&P Review of Systems - Review of Systems: Review Of Systems: See Below General: Denies: Fever, Chills Pulmonary: Denies: Shortness of Breath Cardiovascular: Denies: Chest Pain Gastrointestinal: Denies: Abdominal Pain Neurological: Denies: Confusion Exam - Exam Exam: See Below - Vital Signs Vital Signs: Last Vital Signs Temp 98 F 07/29/20 07:09 Pulse 82 07/29/20 08:09 Resp 16 07/29/20 08:09 BP 164/61 H 07/29/20 07:09 Pulse Ox 95 07/29/20 08:09 Weight: 250 lb - Exam General: Cooperative Lungs: Normal Respiratory Effort, Wheezing Cardiovascular: Regular Rate GI/Abdominal Exam: Soft Neuro Extensive - Mental Status: Alert (When awake and prior to leaving AMA) - Patient Data Lab Results Last 24 hrs: Laboratory Results - last 24 hr 07/29/20 07/29/20 07/29/20 Range/Units 03:50 03:50 03:50 WBC 10.96 (4.0-11.0) K/uL RBC 4.12 L (4.30-5.90) M/uL Hgb 12.4 (12.0-16.0) g/dL Hct 38.8 (36.0-46.0) % MCV 94.2 (80.0-98.0) fL MCH 30.1 (27.0-32.0) pg MCHC 32.0 (31.0-37.0) g/dL RDW Std Deviation 49.4 (28.0-62.0) fl RDW Coeff of Brittny 14 (11.0-15.0) % Plt Count 217 (150-400) K/uL MPV 12.30 H (7.40-12.00) fL Neut % (Auto) 66.3 (48.0-80.0) % Lymph % (Auto) 24.4 (16.0-40.0) % Clark % (Auto) 6.5 (0.0-15.0) % Eos % (Auto) 2.5 (0.0-7.0) % Baso % (Auto) 0.3 (0.0-1.5) % Neut # (Auto) 7.3 H (1.4-5.7) K/uL Lymph # (Auto) 2.7 H (0.6-2.4) K/uL Clark # (Auto) 0.7 (0.0-0.8) K/uL Eos # (Auto) 0.3 (0.0-0.7) K/uL Baso # (Auto) 0.0 (0.0-0.1) K/uL Nucleated RBC % 0.0 /100WBC Nucleated RBCs # 0 K/uL INR 1.07 APTT 31.6 H (18.6-31.3) SEC ABG pH (7.35-7.45) ABG pCO2 (35-45) mmHG ABG pO2 (75-100) mmHG ABG HCO3 (22-26) mEq/L ABG Total CO2 ABG Base Excess (-2.0-2.0) Lactate 0.8 (0.20-2.00) mmol/L Sodium (136-145) mmol/L Potassium (3.5-5.1) mmol/L Chloride (98-107) mmol/L Carbon Dioxide (21.0-32.0) mmol/L BUN (7.0-18.0) mg/dL Creatinine (0.6-1.0) mg/dL Est Cr Clr Drug Dosing Estimated GFR (MDRD) ml/min Glucose (74-106) mg/dL Calcium (8.5-10.1) mg/dL Magnesium (1.8-2.4) mg/dL Total Bilirubin (0.2-1.0) mg/dL AST (15-37) IU/L ALT (14-63) IU/L Alkaline Phosphatase (46-116) U/L Creatine Kinase (26-308) U/L Troponin I (0.000-0.056) ng/mL B-Natriuretic Peptide (<100) PG/ML Total Protein (6.4-8.2) g/dL Albumin (3.4-5.0) g/dL Globulin (2.6-4.0) g/dL Albumin/Globulin Ratio (0.9-1.6) Lipase (73-393) U/L Urine Color Urine Appearance Urine pH (5.0-8.0) Ur Specific [place] (1.001-1.035) Urine Protein (NEGATIVE) mg/dL Urine Glucose (UA) (NEGATIVE) mg/dL Urine Ketones (NEGATIVE) mg/dL Urine Occult Blood (NEGATIVE) Urine Nitrite (NEGATIVE) Urine Bilirubin (NEGATIVE) Urine Urobilinogen (<2.0) EU/dL Ur Leukocyte Esterase (NEGATIVE) Urine Opiates Screen (NEGATIVE) Ur Oxycodone Screen (NEGATIVE) Urine Methadone Screen (NEGATIVE) Ur Barbiturates Screen (NEGATIVE) Ur Phencyclidine Scrn (NEGATIVE) Ur Amphetamine Screen (NEGATIVE) U Methamphetamines Scrn (NEGATIVE) U Benzodiazepines Scrn (NEGATIVE) U Cocaine Metab Screen (NEGATIVE) U Marijuana (THC) Screen (NEGATIVE) Ethyl Alcohol mg/dL SARS-CoV-2 RNA (KEI) (NEGATIVE) 07/29/20 07/29/20 07/29/20 Range/Units 03:50 03:50 03:55 WBC (4.0-11.0) K/uL RBC (4.30-5.90) M/uL Hgb (12.0-16.0) g/dL Hct (36.0-46.0) % MCV (80.0-98.0) fL MCH (27.0-32.0) pg MCHC (31.0-37.0) g/dL RDW Std Deviation (28.0-62.0) fl RDW Coeff of Brittny (11.0-15.0) % Plt Count (150-400) K/uL MPV (7.40-12.00) fL Neut % (Auto) (48.0-80.0) % Lymph % (Auto) (16.0-40.0) % Clark % (Auto) (0.0-15.0) % Eos % (Auto) (0.0-7.0) % Baso % (Auto) (0.0-1.5) % Neut # (Auto) (1.4-5.7) K/uL Lymph # (Auto) (0.6-2.4) K/uL Clark # (Auto) (0.0-0.8) K/uL Eos # (Auto) (0.0-0.7) K/uL Baso # (Auto) (0.0-0.1) K/uL Nucleated RBC % /100WBC Nucleated RBCs # K/uL INR APTT (18.6-31.3) SEC ABG pH 7.384 (7.35-7.45) ABG pCO2 48 H (35-45) mmHG ABG pO2 57 L (75-100) mmHG ABG HCO3 29 H (22-26) mEq/L ABG Total CO2 26.3 ABG Base Excess 2.9 H (-2.0-2.0) Lactate (0.20-2.00) mmol/L Sodium 142 (136-145) mmol/L Potassium 3.8 (3.5-5.1) mmol/L Chloride 105 (98-107) mmol/L Carbon Dioxide 28.9 (21.0-32.0) mmol/L BUN 11 (7.0-18.0) mg/dL Creatinine 1.0 (0.6-1.0) mg/dL Est Cr Clr Drug Dosing TNP Estimated GFR (MDRD) 55.0 ml/min Glucose 98 (74-106) mg/dL Calcium 8.0 L (8.5-10.1) mg/dL Magnesium 2.0 (1.8-2.4) mg/dL Total Bilirubin 0.2 (0.2-1.0) mg/dL AST 9 L (15-37) IU/L ALT 18 (14-63) IU/L Alkaline Phosphatase 168 H (46-116) U/L Creatine Kinase 46 (26-308) U/L Troponin I < 0.050 (0.000-0.056) ng/mL B-Natriuretic Peptide 71 (<100) PG/ML Total Protein 6.4 (6.4-8.2) g/dL Albumin 2.9 L (3.4-5.0) g/dL Globulin 3.5 (2.6-4.0) g/dL Albumin/Globulin Ratio 0.8 L (0.9-1.6) Lipase 32 L (73-393) U/L Urine Color Urine Appearance Urine pH (5.0-8.0) Ur Specific [place] (1.001-1.035) Urine Protein (NEGATIVE) mg/dL Urine Glucose (UA) (NEGATIVE) mg/dL Urine Ketones (NEGATIVE) mg/dL Urine Occult Blood (NEGATIVE) Urine Nitrite (NEGATIVE) Urine Bilirubin (NEGATIVE) Urine Urobilinogen (<2.0) EU/dL Ur Leukocyte Esterase (NEGATIVE) Urine Opiates Screen (NEGATIVE) Ur Oxycodone Screen (NEGATIVE) Urine Methadone Screen (NEGATIVE) Ur Barbiturates Screen (NEGATIVE) Ur Phencyclidine Scrn (NEGATIVE) Ur Amphetamine Screen (NEGATIVE) U Methamphetamines Scrn (NEGATIVE) U Benzodiazepines Scrn (NEGATIVE) U Cocaine Metab Screen (NEGATIVE) U Marijuana (THC) Screen (NEGATIVE) Ethyl Alcohol < 3.0 mg/dL SARS-CoV-2 RNA (KEI) (NEGATIVE) 07/29/20 07/29/20 07/29/20 Range/Units 04:38 04:38 04:40 WBC (4.0-11.0) K/uL RBC (4.30-5.90) M/uL Hgb (12.0-16.0) g/dL Hct (36.0-46.0) % MCV (80.0-98.0) fL MCH (27.0-32.0) pg MCHC (31.0-37.0) g/dL RDW Std Deviation (28.0-62.0) fl RDW Coeff of Brittny (11.0-15.0) % Plt Count (150-400) K/uL MPV (7.40-12.00) fL Neut % (Auto) (48.0-80.0) % Lymph % (Auto) (16.0-40.0) % Clark % (Auto) (0.0-15.0) % Eos % (Auto) (0.0-7.0) % Baso % (Auto) (0.0-1.5) % Neut # (Auto) (1.4-5.7) K/uL Lymph # (Auto) (0.6-2.4) K/uL Clark # (Auto) (0.0-0.8) K/uL Eos # (Auto) (0.0-0.7) K/uL Baso # (Auto) (0.0-0.1) K/uL Nucleated RBC % /100WBC Nucleated RBCs # K/uL INR APTT (18.6-31.3) SEC ABG pH (7.35-7.45) ABG pCO2 (35-45) mmHG ABG pO2 (75-100) mmHG ABG HCO3 (22-26) mEq/L ABG Total CO2 ABG Base Excess (-2.0-2.0) Lactate (0.20-2.00) mmol/L Sodium (136-145) mmol/L Potassium (3.5-5.1) mmol/L Chloride (98-107) mmol/L Carbon Dioxide (21.0-32.0) mmol/L BUN (7.0-18.0) mg/dL Creatinine (0.6-1.0) mg/dL Est Cr Clr Drug Dosing Estimated GFR (MDRD) ml/min Glucose (74-106) mg/dL Calcium (8.5-10.1) mg/dL Magnesium (1.8-2.4) mg/dL Total Bilirubin (0.2-1.0) mg/dL AST (15-37) IU/L ALT (14-63) IU/L Alkaline Phosphatase (46-116) U/L Creatine Kinase (26-308) U/L Troponin I (0.000-0.056) ng/mL B-Natriuretic Peptide (<100) PG/ML Total Protein (6.4-8.2) g/dL Albumin (3.4-5.0) g/dL Globulin (2.6-4.0) g/dL Albumin/Globulin Ratio (0.9-1.6) Lipase (73-393) U/L Urine Color YELLOW Urine Appearance CLEAR Urine pH 6.0 (5.0-8.0) Ur Specific [place] 1.025 (1.001-1.035) Urine Protein NEGATIVE (NEGATIVE) mg/dL Urine Glucose (UA) NEGATIVE (NEGATIVE) mg/dL Urine Ketones NEGATIVE (NEGATIVE) mg/dL Urine Occult Blood NEGATIVE (NEGATIVE) Urine Nitrite NEGATIVE (NEGATIVE) Urine Bilirubin NEGATIVE (NEGATIVE) Urine Urobilinogen 1.0 (<2.0) EU/dL Ur Leukocyte Esterase NEGATIVE (NEGATIVE) Urine Opiates Screen POSITIVE (NEGATIVE) Ur Oxycodone Screen NEGATIVE (NEGATIVE) Urine Methadone Screen NEGATIVE (NEGATIVE) Ur Barbiturates Screen NEGATIVE (NEGATIVE) Ur Phencyclidine Scrn NEGATIVE (NEGATIVE) Ur Amphetamine Screen NEGATIVE (NEGATIVE) U Methamphetamines Scrn NEGATIVE (NEGATIVE) U Benzodiazepines Scrn POSITIVE (NEGATIVE) U Cocaine Metab Screen NEGATIVE (NEGATIVE) U Marijuana (THC) Screen NEGATIVE (NEGATIVE) Ethyl Alcohol mg/dL SARS-CoV-2 RNA (KEI) NEGATIVE (NEGATIVE) Result Diagrams: 07/29/20 03:50 07/29/20 03:50 Sepsis Event Note - Evaluation Sepsis Screening Result: No Definite Risk - Focused Exam Vital Signs: Vital Signs Temp Pulse Resp BP Pulse Ox 07/29/20 08:09 82 16 95 07/29/20 07:09 98 F 62 20 164/61 H 93 L 07/29/20 06:30 60 16 139/76 94 L 07/29/20 05:00 65 16 136/76 95 07/29/20 03:50 98.1 F 69 16 133/68 97 - Problem List (1) Polypharmacy SNOMED Code(s): 525064389 ICD Code: Z79.899 - OTHER [facility] (CURRENT) DRUG THERAPY Status: Acute Current Visit: Yes (2) Altered mental status SNOMED Code(s): 873421571 ICD Code: R41.82 - ALTERED MENTAL STATUS, UNSPECIFIED Status: Acute Current Visit: No Qualifiers: Altered mental status type: unspecified Qualified Code(s): R41.82 - Altered mental status, unspecified (3) History of CVA (cerebrovascular accident) SNOMED Code(s): 480707352 ICD Code: Z86.73 - PRSNL HX OF TIA (TIA), AND CEREB INFRC W/O RESID DEFICITS Status: Acute Current Visit: No (4) Left against medical advice SNOMED Code(s): 781982244 ICD Code: Z53.29 - PROC/TRTMT NOT CRD OUT BEC PT DECISION FOR OTH REASONS Status: Acute Current Visit: No (5) Afib SNOMED Code(s): 86385254 ICD Code: I48.91 - UNSPECIFIED ATRIAL FIBRILLATION Status: Chronic Current Visit: No Qualifiers: Atrial fibrillation type: persistent (not longstanding) Qualified Code(s): I48.19 - Other persistent atrial fibrillation; I48.1 - Persistent atrial fibrillation (6) HLD (hyperlipidemia) SNOMED Code(s): 78125106 ICD Code: E78.5 - HYPERLIPIDEMIA, UNSPECIFIED Status: Chronic Current Visit: No (7) HTN (hypertension) SNOMED Code(s): 70537313 ICD Code: I10 - ESSENTIAL (PRIMARY) HYPERTENSION Status: Chronic Current Visit: No Problem List Initiated/Reviewed/Updated: Yes Orders Last 24hrs: Active Orders 24 hr Category Date Time Status Patient Status [ADT] Routine ADT 07/29/20 06:27 Active Antiembolic Devices [RC] PER UNIT ROUTINE Care 07/29/20 08:10 Active Cardiac Monitoring [RC] . DIRECTED Care 07/29/20 03:49 Active EKG Documentation Completion [RC] STAT Care 07/29/20 03:49 Active Insert Urinary Catheter [OM.PC] Q24H Care 07/29/20 04:45 Ordered Oxygen Therapy [RC] PRN Care 07/29/20 08:09 Active Pulse Oximetry [RC] ASDIRECTED Care 07/29/20 03:49 Active Ready for Discharge [RC] PER UNIT ROUTINE Care 07/29/20 11:22 Ordered Telemetry Monitoring [Cardiac Monitoring] [RC] . Care 07/29/20 07:00 Active DIRECTED Urinary Catheter Assessment [RC] ASDIRECTED Care 07/29/20 04:43 Active VTE/DVT Education [RC] PER UNIT ROUTINE Care 07/29/20 08:09 Active Vital Signs [RC] Q4H Care 07/29/20 08:09 Active Nothing per Oral Now Diet [DIET] Diet 07/29/20 Breakfast Active Cervical Spine wo Cont [CT] Stat Exams 07/29/20 04:03 Taken Chest 1V Frontal [CR] Stat Exams 07/29/20 03:50 Taken Acetaminophen [TylenoL] Med 07/29/20 08:15 Active 650 mg PO Q4H PRN Sodium Chloride 0.9% [Normal Saline] 1,000 ml Med 07/29/20 08:15 Active IV Q8H Sodium Chloride 0.9% [Saline Flush] Med 07/29/20 03:49 Active 10 ml FLUSH ASDIRECTED PRN Sodium Chloride 0.9% [Saline Flush] Med 07/29/20 03:49 Active 2.5 ml FLUSH ASDIRECTED PRN Saline Lock Insert [OM.PC] Stat Oth 07/29/20 03:49 Ordered Sequential Compression Device [OM.PC] Per Unit Routine Oth 07/29/20 08:09 Ordered Medication Orders Acetaminophen (Acetaminophen 325 Mg Tab) 650 mg PO Q4H PRN PRN Reason: Pain (Mild 1-3)/fever Sodium Chloride (Normal Saline) 1,000 mls @ 125 mls/hr IV Q8H [facility] Last Admin: 07/29/20 08:36 Dose: 125 mls/hr Documented by: PREM Sodium Chloride (Sodium Chloride 0.9% 10 Ml Syringe) 10 ml FLUSH ASDIRECTED PRN PRN Reason: Keep Vein Open Last Admin: 07/29/20 03:54 Dose: 10 ml Documented by: LIDIA Sodium Chloride (Sodium Chloride 0.9% 2.5 Ml Syringe) 2.5 ml FLUSH ASDIRECTED PRN PRN Reason: Keep Vein Open Last Admin: 07/29/20 03:53 Dose: 2.5 ml Documented by: LIDIA Assessment/Plan Comment:: Plan: Patient left the medical floor AMA. Patient advised to follow-up with primary care physician to discuss medications and dosages. Patient agrees and understands that she has not given the medical team time to evaluate her and discuss her medications.
--- NOTE | 2020-07-31 11:00 | CR ---
EXAM DATE: 07/29/20 PATIENT'S AGE: 70 Patient: MELINDA BAXTER [facility] Facility: [facility] Site Site : 1950 Study: XRay-Chest -07/29/2020 5:09:39 AM Ordering Physician: KIKO CUTLER DO Final Report: INDICATION: Fall, altered mental status TECHNIQUE: Portable upright AP view of the chest COMPARISON: AP chest radiograph 05/12/2020 FINDINGS: The lungs are clear. There is no sizable pleural effusion or pneumothorax. The cardiomediastinal silhouette is stable. Pacemaker is in place. Surgical clips are noted in the epigastrium. IMPRESSION: No acute abnormality. Dictated by Julia Brito MD @ Jul 29 2020 5:15AM Signed by: Julia Brito MD @07/29/2020 5:15:39 AM (Electronic Signature) Report Signed by Proxy. DOUGLAS
--- NOTE | 2020-07-31 11:10 | CT ---
EXAM DATE: 07/29/20 PATIENT'S AGE: 70 Patient: MELINDA BAXTER [facility] Facility: [facility] Site Site : 1950 Study: CT-Spine Cervical WO CONT-07/29/2020 6:08:07 AM Ordering Physician: KIKO CUTLER DO Final Report: Indication: Possible fall Technique: Nonenhanced axial CT imaging through the cervical spine. Sagittal and coronal reconstructions are provided. Comparison: CT cervical spine 04/17/2020 Findings: The cervical vertebral bodies are normal in height. No fracture is demonstrated. There is normal spinal alignment. The atlantoaxial and atlantooccipital relationships are maintained. There is no prevertebral edema. Stable chronic defect is noted in the posterior arch of C1. Mild degenerative changes are present. There is no significant narrowing of the spinal canal or neural foramina. Impression: No acute fracture or traumatic malalignment. Please note that all CT scans at this facility use dose modulation, iterative reconstruction, and/or weight-based dosing when appropriate to reduce radiation dose to as low as reasonably achievable. Dictated by Julia Brito MD @ Jul 29 2020 6:14AM Signed by: Julia Brito MD @07/29/2020 6:14:35 AM (Electronic Signature) Report Signed by Proxy. DOUGLAS
== END 2020-07-29 11:10 | disposition left against medical advice (07) ==
LOC: MW.ED 03:47 → MW.MS 06:14
PROVIDERS: ADMIT Internal Medicine; ATTEND Internal Medicine
DX: R41.82 Altered mental status, unspecified (principal); I48.91 Unspecified atrial fibrillation; E78.5 Hyperlipidemia, unspecified; I10 Essential (primary) hypertension; E78.00 Pure hypercholesterolemia, unspecified; J44.9 Chronic obstructive pulmonary disease, unspecified; E66.9 Obesity, unspecified; Z86.73 Personal history of transient ischemic attack (TIA), and cerebral infarction without residual deficits; Z20.822 Contact with and (suspected) exposure to COVID-19; Z79.01 Long term (current) use of anticoagulants; Z88.5 Allergy status to narcotic agent; Z88.8 Allergy status to other drugs, medicaments and biological substances; Z79.899 Other long term (current) drug therapy; Z98.890 Other specified postprocedural states; Z68.34 Body mass index [BMI] 34.0-34.9, adult
CPT/HCPCS: 36415; 36600; 70450; 71045; 72125; 73502; 80053; 80305; 80307; 81003; 82550; 82803; 83605; 83690; 83735; 83880; 84484; 85025; 85610; 85730; 93005; J2310; J7030; U0002

== ENCOUNTER 2020-08-11 13:30 | Emergency (ER) | payer MEDICARE, MEDICAID ==
--- NOTE | 2020-08-11 13:40 | EDM.PDOC ---
ED HPI GENERAL MEDICAL PROBLEM - General Chief Complaint: Cardiovascular Problem Stated Complaint: REFERAL Time Seen by Provider: 08/11/20 13:33 Source of Information: Reports: Patient History Limitations: Reports: No Limitations - History of Present Illness INITIAL COMMENTS - FREE TEXT/NARRATIVE: Is a 70-year-old female who was sent over from clinic for elevated blood pressure. Patient dates that she usually when she will will check up and her PMD sent her blood pressures greater than 200 the daughter comes admitted to the ED. Patient otherwise states she feels healthy she is having chest pain vision changes headaches urinary problems other conditions. Patient states that her PMD did not tell her to come to the hospital she have not come for any other reasons. ED ROS GENERAL - Review of Systems Review Of Systems: See Below Constitutional: Reports: No Symptoms HEENT: Reports: No Symptoms Respiratory: Reports: No Symptoms Cardiovascular: Reports: No Symptoms Endocrine: Reports: No Symptoms GI/Abdominal: Reports: No Symptoms : Reports: No Symptoms Musculoskeletal: Reports: No Symptoms Skin: Reports: No Symptoms Neurological: Reports: No Symptoms Psychiatric: Reports: No Symptoms Hematologic/Lymphatic: Reports: No Symptoms Immunologic: Reports: No Symptoms ED EXAM, GENERAL - Physical Exam Exam: See Below Exam Limited By: No Limitations General Appearance: Alert, WD/WN Eye Exam: Bilateral Eye: EOMI, PERRL Respiratory/Chest: No Respiratory Distress, Lungs Clear, Normal Breath Sounds Cardiovascular: Normal Peripheral Pulses, Regular Rate, Rhythm GI/Abdominal: Normal Bowel Sounds, Soft, Non-Tender Neurological: Alert, Oriented, CN II-XII Intact, Normal Cognition, Normal Gait #1 Interpretation EKG Date: 08/11/20 Time: 13:40 Rhythm: Other (atrial paced) Rate (Beats/Min): 74 ST-T: Normal Course - Vital Signs Last Recorded V/S: Last Vital Signs Temp 96.8 F L 08/11/20 13:32 Pulse 60 08/11/20 15:17 Resp 18 08/11/20 15:17 BP 192/86 H 08/11/20 15:17 Pulse Ox 94 L 08/11/20 15:17 - Orders/Labs/Meds Labs: Laboratory Tests 08/11/20 08/11/20 08/11/20 Range/Units 13:53 13:53 14:00 WBC 9.80 (4.0-11.0) K/uL RBC 4.31 (4.30-5.90) M/uL Hgb 13.1 (12.0-16.0) g/dL Hct 40.2 (36.0-46.0) % MCV 93.3 (80.0-98.0) fL MCH 30.4 (27.0-32.0) pg MCHC 32.6 (31.0-37.0) g/dL RDW Std Deviation 49.5 (28.0-62.0) fl RDW Coeff of Brittny 15 (11.0-15.0) % Plt Count 244 (150-400) K/uL MPV 11.70 (7.40-12.00) fL Neut % (Auto) 64.3 (48.0-80.0) % Lymph % (Auto) 28.4 (16.0-40.0) % [place] % (Auto) 5.7 (0.0-15.0) % Eos % (Auto) 1.2 (0.0-7.0) % Baso % (Auto) 0.4 (0.0-1.5) % Neut # (Auto) 6.3 H (1.4-5.7) K/uL Lymph # (Auto) 2.8 H (0.6-2.4) K/uL [place] # (Auto) 0.6 (0.0-0.8) K/uL Eos # (Auto) 0.1 (0.0-0.7) K/uL Baso # (Auto) 0.0 (0.0-0.1) K/uL Nucleated RBC % 0.0 /100WBC Nucleated RBCs # 0 K/uL Sodium 141 (136-145) mmol/L Potassium 4.0 (3.5-5.1) mmol/L Chloride 106 (98-107) mmol/L Carbon Dioxide 29.0 (21.0-32.0) mmol/L BUN 11 (7.0-18.0) mg/dL Creatinine 0.8 (0.6-1.0) mg/dL Est Cr Clr Drug Dosing 59.72 mL/min Estimated GFR (MDRD) > 60.0 ml/min Glucose 88 (74-106) mg/dL Calcium 8.4 L (8.5-10.1) mg/dL Total Bilirubin 0.3 (0.2-1.0) mg/dL AST 13 L (15-37) IU/L ALT 19 (14-63) IU/L Alkaline Phosphatase 162 H (46-116) U/L Total Protein 6.8 (6.4-8.2) g/dL Albumin 3.1 L (3.4-5.0) g/dL Globulin 3.7 (2.6-4.0) g/dL Albumin/Globulin Ratio 0.8 L (0.9-1.6) Urine Color YELLOW Urine Appearance CLEAR Urine pH 6.5 (5.0-8.0) Ur Specific [place] 1.020 (1.001-1.035) Urine Protein NEGATIVE (NEGATIVE) mg/dL Urine Glucose (UA) NEGATIVE (NEGATIVE) mg/dL Urine Ketones NEGATIVE (NEGATIVE) mg/dL Urine Occult Blood NEGATIVE (NEGATIVE) Urine Nitrite NEGATIVE (NEGATIVE) Urine Bilirubin NEGATIVE (NEGATIVE) Urine Urobilinogen 1.0 (<2.0) EU/dL Ur Leukocyte Esterase MODERATE H (NEGATIVE) Urine RBC 2-4 (0-2/HPF) Urine WBC 10-15 (0-5/HPF) Ur Epithelial Cells MODERATE (NONE-FEW) Urine Bacteria FEW (NEGATIVE) Meds: Medications Discontinued Medications Generic Name Dose Route Start Last Admin Trade Name Freq PRN Reason Stop Dose Admin Amlodipine Besylate 5 mg 08/11/20 14:08 08/11/20 14:14 Amlodipine 5 Mg Tab PO 08/11/20 14:09 5 mg ONETIME ONE Administration - Re-Assessments/Exams Free Text/Narrative Re-Assessment/Exam: 08/11/20 15:[address] labs EKG reviewed and asymptomatic. Patient dates that for cardiology not sent here she not come in for any issues. Patient was told to follow with h er primary care physician as she may need to have her medications adjusted if she develops any symptoms patient given strict return precautions to return. Departure - Departure Time of Disposition: 15:23 Disposition: Home, Self-Care 01 Condition: Good Clinical Impression: Asymptomatic hypertension Instructions: Hypertension, Adult, [id number] Forms: ED Department Discharge Additional Instructions: The following information is given to patients seen in the emergency department who are being discharged to home. This information is to outline your options for follow-up care. We provide all patients seen in our emergency department with a follow-up referral. The need for follow-up, as well as the timing and circumstances, are variable depending upon the specifics of your emergency department visit. If you don't have a primary care physician on staff, we will provide you with a referral. We always advise you to contact your personal physician following an emergency department visit to inform them of the circumstance of the visit and for follow-up with them and/or the need for any referrals to a consulting specialist. The emergency department will also refer you to a specialist when appropriate. This referral assures that you have the opportunity for follow-up care with a specialist. All of these measure are taken in an effort to provide you with optimal care, which includes your follow-up. Under all circumstances we always encourage you to contact your private physician who remains a resource for coordinating your care. When calling for follow-up care, please make the office aware that this follow-up is from your recent emergency room visit. If for any reason you are refused follow-up, please contact the [facility] at and asked to speak to the emergency department charge nurse. Please follow up with your primary care physician. If you do not have a primary care physician, see below: [facility] [address] [place] [id number] My [facility] [address] [place] [address] We checked your labs as well as the EKG chest x-ray and CT scan of your head. Everything came back within normal limits. We now recommend you follow-up to primary care physician if you may need additional control your blood pressure medication this may need changes to your diet or exercise or kidney additional blood pressure medications. If you develop any of those hypertension urgency symptoms we discussed as far as confusion vision changes chest pain or difficulty urinating please immediately come to the ED. Sepsis Event Note (ED) - Evaluation Sepsis Screening Result: No Definite Risk - Focused Exam Vital Signs: Vital Signs Temp Pulse Resp BP BP Pulse Ox 08/11/20 15:17 60 18 192/86 H 94 L 08/11/20 14:14 186/98 H 08/11/20 13:32 96.8 F L 96 16 195/105 H 98 - Assessment/Plan Plan: She is a 70-year-old female who was sent here for evaluation of elevated blood pressure. Patient blood pressure is 195/100. Patient that she took her medications morning. Will obtain labs EKG and reassess patient.
[2020-08-11] MEDS ORDERED: amLODIPine 5 MG Tab PO ONE (14:08)
[2020-08-11 14:31] LABS: BLOOD UREA NITROGEN,BUN 11 mg/dL (7.0-18.0); CHLORIDE,CL 106 mmol/L (98-107); GLUCOSE RANDOM 88 mg/dL (74-106); SODIUM,NA 141 mmol/L (136-145)
--- NOTE | 2020-08-11 14:47 | CR ---
INDICATION: Elevated blood pressure TECHNIQUE: Chest 1 view. COMPARISON: None FINDINGS: Cardiovascular and mediastinum: Heart size and vasculature are normal in caliber and appearance. Mediastinum is within normal limits. Left-sided transvenous pacer device. Lungs and pleural space: Lungs are clear. No sign of infiltrate or mass. No sign of pleural effusion. No pneumothorax. Bones and soft tissues: No significant findings. IMPRESSION: Unremarkable chest. Dictated by Raza Paul MD @ Aug 11 2020 2:42PM Signed by Dr. Raza Paul @ Aug 11 2020 2:45PM
--- NOTE | 2020-08-11 14:53 | CT ---
INDICATION: Elevated blood pressure TECHNIQUE: CT head without contrast. COMPARISON: None FINDINGS: CSF spaces: Within normal limits for age. Brain parenchyma: The duenas-white differentiation is normal. No sign of mass, hemorrhage, or midline shift. Mild diffuse volume loss. Skull base and calvarium: The visualized paranasal sinuses and mastoid air cells demonstrate no acute or significant findings. The visualized orbits are grossly unremarkable. No skull fractures. IMPRESSION: No acute intracranial abnormalities. Please note that all CT scans at this facility use dose modulation, iterative reconstruction, and/or weight-based dosing when appropriate to reduce radiation dose to as low as reasonably achievable. Dictated by Raza Paul MD @ Aug 11 2020 2:47PM Signed by Dr. Raza Paul @ Aug 11 2020 2:52PM
[2020-08-11 15:18] VITALS: PULSE 60
[2020-08-11 15:51] VITALS: BP 176/80
== END 2020-08-11 15:30 | disposition home or self-care (01) ==
LOC: MW.ED 13:30 → MERGE 13:30 → MW.ED 15:30
DX: I10 Essential (primary) hypertension (principal)
CPT/HCPCS: 36415; 70450; 71045; 80053; 81001; 85025; 93005; 99284; A9270; 93010; 99283

== ENCOUNTER 2020-11-21 01:33 | Observation (INO) | payer MEDICARE, MEDICAID ==
[~2020-11-21 01:33] MED LIST: Sodium Chloride 0.9% 10 ML Syringe FLUSH PRN; Sodium Chloride 0.9% 2.5 ML Syringe FLUSH PRN
[2020-11-21] MEDS ORDERED: Albuterol/Ipratropium 3.0-0.5 MG/3 ML Neb Soln NEB ONE (01:46)
--- NOTE | 2020-11-21 01:47 | EDM.PDOC ---
ED HPI GENERAL MEDICAL PROBLEM - General Chief Complaint: General Stated Complaint: ALTERED MENTAL STATUS Time Seen by Provider: 11/21/20 01:50 - History of Present Illness INITIAL COMMENTS - FREE TEXT/NARRATIVE: History of present illness: The patient was in her apartment complex but could not find her apartment. She was quite confused. She had a Nima Coma Scale of 13 and was disoriented. She does remember that she has COPD. [] Review of systems: As per history of present illness and below otherwise all systems reviewed and negative. Past medical history: As per history of present illness and as reviewed below otherwise noncontributory. Surgical history: As per history of present illness and as reviewed below otherwise noncontributory. Social history: No reported history of drug or alcohol abuse. Family history: As per history of present illness and as reviewed below otherwise noncontributory. Physical exam: Constitutional - well developed, well-nourished and in no acute distress HEENT - normocephalic, no evidence of trauma - external nose and mouth normal - no mass in neck and no JVD - mucosae moist EYES - full EOM, PERRL, no icterus - no evidence of inflammation, injection, or drainage Respiratory -mild respiratory distress, equal bilateral expansion, lungs with prolonged expiratory phase wheezes throughout. Cardiovascular - Regular Rhythm with S1 and S2 appreciated and no murmur, gallop or rub. GI - abdomen soft without distension or organomegaly - normal bowel sounds - no guard or rebound Musculoskeletal no gross deformity of long bones or joints - no tenderness, swelling or edema Neurologic -arousable and oriented to person only- CN II-XII grossly intact - motor sensory and coordination symmetrically normal Psychiatric -flat affect but cooperative Hematologic - No petechiae or purpura - mucosa appropriate color and sclera not pale - normal nail bed color and refill Integument - no rash or evidence of trauma - normal turgor Diagnostics: [] Therapeutics: [] Impression: [] Plan: [] Definitive disposition and diagnosis as appropriate pending reevaluation and review of above. - Related Data Allergies Allergy/AdvReac Type Severity Reaction Status Date / Time codeine Allergy Intermediate Airway Verified 11/21/20 01:53 Tightness meperidine HCl [From Demerol] Allergy Intermediate Airway Verified 11/21/20 01:53 Tightness morphine Allergy Intermediate Airway Verified 11/21/20 01:53 Tightness oxycodone [Oxycodone] Allergy Intermediate Airway Verified 11/21/20 01:53 Tightness lidocaine Allergy Anaphylactic Verified 11/21/20 01:53 Shock orphenadrine Allergy Airway Verified 11/21/20 01:53 Tightness varenicline tartrate Allergy Airway Verified 11/21/20 01:53 [From Chantix] Tightness Home Meds: Home Meds DULoxetine HCl [Duloxetine HCl] 120 mg PO DAILY 12/22/13 [History] Apixaban [Eliquis] 5 mg PO BID 08/14/15 [History] Esomeprazole [NexIUM] 40 mg PO DAILY 08/21/17 [History] Olmesartan Medoxomil 40 mg PO DAILY 09/07/19 [History] Escitalopram [Lexapro] 10 mg PO DAILY 02/02/20 [History] Furosemide 20 mg PO DAILY 02/02/20 [History] Gabapentin [Neurontin] 600 mg PO TID 02/02/20 [History] Diclofenac Sodium 1 applic TOP QID PRN 02/23/20 [History] dilTIAZem HCL [Diltiazem 24Hr ER] 240 mg PO DAILY 02/23/20 [History] Collagenase [Santyl Oint] 1 applic TOP ASDIRECTED PRN 03/08/20 [History] Hydrocodone/Acetaminophen [Hydrocodone-Acetamin 10-325 mg] 1 tab PO 6XDAY PRN 03/08/20 [History] Naloxone HCl [Narcan] 4 mg NS ONETIME PRN #1 spray 04/17/20 [Rx] Cyclobenzaprine [Flexeril] 5 mg PO QID PRN 05/13/20 [History] LORazepam [Ativan] 2 mg PO TID PRN 05/13/20 [History] hydrOXYzine pamoate [Hydroxyzine Pamoate] 25 mg PO TID PRN #30 05/13/20 [Rx] risperiDONE [RisperiDAL] 0.5 mg PO BEDTIME #30 tablet 05/13/20 [Rx] traMADol [Ultram] 50 mg PO BID PRN 05/13/20 [History] Betamethasone/Clotrimazole [Lotrisone] 15 gm TOP BID #1 tube 05/14/20 [Rx] Hydrochlorothiazide/Lisinopril [Lisinopril/HCTZ 20-.5 MG] 1 tab PO DAILY #30 tab 05/14/20 [Rx] Past Medical History HEENT History: Reports: Allergic Rhinitis, Impaired Vision, Other (See Below) Other HEENT History: wears reading glasses Cardiovascular History: Reports: Afib, Arrhythmia, High Cholesterol, Hypertension, Pacemaker Respiratory History: Reports: Bronchitis, Recurrent, COPD, None, Other (See Below), SOB Other Respiratory History: was tested for sleep apnea last week, no results yet Gastrointestinal History: Reports: Cholelithiasis, GERD, None Genitourinary History: Reports: None, UTI, Recurrent [employer] History: Reports: None, Musculoskeletal History: Reports: Arthritis, Fracture, Osteoporosis Other Musculoskeletal History: states chronic back and right hip pain, hx of fx right wrist and right tib-fib, wheelchair bound due to hip pain and major SOB Neurological History: Reports: CVA, TIA Other Neuro History: 6 TIAs Psychiatric History: Reports: Anxiety, Bipolar, Depression Endocrine/Metabolic History: Reports: None, Other (See Below), Obesity/BMI 30+ Other Endocrine/Metabolic History: states has 2 "lumps" on thyroid as noted on ultrasound Insulin Pump Model and Shuttle Filler: None Hematologic History: Reports: Blood Transfusion(s), None Immunologic History: Reports: None Oncologic (Cancer) History: Reports: None Dermatologic History: Reports: Eczema, None - Infectious Disease History Infectious Disease History: Reports: Measles, Mumps - Past Surgical History HEENT Surgical History: Reports: Cataract Surgery, None GI Surgical History: Reports: Bariatric Procedure, Cholecystectomy Musculoskeletal Surgical History: Reports: Hip Replacement, Knee Replacement, ORIF Social & Family History - Family History Family Medical History: No Pertinent Family History HEENT: Reports: Other (See Below) - Caffeine Use Caffeine Use: Reports: Coffee, Soda Caffeine Use Comment: Unable to obtain. Pt is falling in and out of sleep, and is groggy. ED ROS GENERAL - Review of Systems Review Of Systems: Comprehensive ROS is negative, except as noted in HPI. ED EXAM, GENERAL - Physical Exam Exam: See Below Free Text/Narrative:: My physical exam is in the HPI #1 Interpretation EKG Interpretation Comments: EKG atrial paced rhythm heart rate 64 NM interval 188 Hoffman XX [address] changes impression no acute ischemia or injury noted. Course - Vital Signs Text/Narrative:: 1:45 AM Luca's test done on the right side and radial used for ABG specimen. 0207 patient's condition unchanged. Blood gas somewhat better than the last 1. Review of her most recent admission show that this circumstances were quite similar and she left AMA after she woke up. Presumptive diagnosis was overuse o f her medications that include narcotics muscle relaxers and medication for behavioral disorder. CT of the brain was unremarkable and Narcan gave virtually no response. She is protecting her own airway. Discussed with Dr. Borrego and admitted. Last Recorded V/S: Last Vital Signs Temp 36.4 C 11/21/20 01:46 Pulse 71 11/21/20 03:58 Resp 20 11/21/20 03:58 BP 175/78 H 11/21/20 03:58 Pulse Ox 96 11/21/20 03:58 - Orders/Labs/Meds Orders: Active Orders 24 hr Category Date Time Status EKG Documentation Completion [RC] AM Care 11/21/20 01:33 Active RT Aerosol Therapy [RC] ASDIRECTED Care 11/21/20 01:47 Active Sodium Chloride 0.9% [Saline Flush] Med 11/21/20 01:33 Active 10 ml FLUSH ASDIRECTED PRN Sodium Chloride 0.9% [Saline Flush] Med 11/21/20 01:33 Active 2.5 ml FLUSH ASDIRECTED PRN Saline Lock Insert [OM.PC] Stat Oth 11/21/20 01:34 Ordered Medication Orders Sodium Chloride (Sodium Chloride 0.9% 10 Ml Syringe) 10 ml FLUSH ASDIRECTED PRN PRN Reason: Keep Vein Open Last Admin: 11/21/20 02:02 Dose: 10 ml Documented by: TEN Sodium Chloride (Sodium Chloride 0.9% 2.5 Ml Syringe) 2.5 ml FLUSH ASDIRECTED PRN PRN Reason: Keep Vein Open Last Admin: 11/21/20 02:02 Dose: 2.5 ml Documented by: TEN Labs: Laboratory Tests 11/21/20 11/21/20 11/21/20 Range/Units 01:30 01:30 01:43 WBC 9.38 (4.0-11.0) K/uL RBC 4.00 L (4.30-5.90) M/uL Hgb 12.1 (12.0-16.0) g/dL Hct 36.7 (36.0-46.0) % MCV 91.8 (80.0-98.0) fL MCH 30.3 (27.0-32.0) pg MCHC 33.0 (31.0-37.0) g/dL RDW Std Deviation 50.8 (28.0-62.0) fl RDW Coeff of Brittny 15 (11.0-15.0) % Plt Count 307 (150-400) K/uL MPV 11.40 (7.40-12.00) fL Neut % (Auto) 61.1 (48.0-80.0) % Lymph % (Auto) 27.9 (16.0-40.0) % [place] % (Auto) 7.8 (0.0-15.0) % Eos % (Auto) 2.8 (0.0-7.0) % Baso % (Auto) 0.4 (0.0-1.5) % Neut # (Auto) 5.7 (1.4-5.7) K/uL Lymph # (Auto) 2.6 H (0.6-2.4) K/uL [place] # (Auto) 0.7 (0.0-0.8) K/uL Eos # (Auto) 0.3 (0.0-0.7) K/uL Baso # (Auto) 0.0 (0.0-0.1) K/uL Nucleated RBC % 0.0 /100WBC Nucleated RBCs # 0 K/uL ABG pH 7.37 (7.35-7.45) ABG pCO2 49 H (35-45) mmHG ABG pO2 99 (80-105) mmHG ABG HCO3 28 H (22-26) mEq/L ABG Total CO2 26.1 (23-27) mmol/L ABG Base Excess 2.2 (-2.0-3.0) Sodium 143 (136-145) mmol/L Potassium 3.6 (3.5-5.1) mmol/L Chloride 108 H (98-107) mmol/L Carbon Dioxide 27.9 (21.0-32.0) mmol/L BUN 9 (7.0-18.0) mg/dL Creatinine 0.8 (0.6-1.0) mg/dL Est Cr Clr Drug Dosing TNP Estimated GFR (MDRD) > 60.0 ml/min Glucose 93 (74-106) mg/dL Calcium 8.2 L (8.5-10.1) mg/dL Total Bilirubin 0.3 (0.2-1.0) mg/dL AST 16 (15-37) IU/L ALT 17 (14-63) IU/L Alkaline Phosphatase 140 H (46-116) U/L Total Protein 6.2 L (6.4-8.2) g/dL Albumin 2.8 L (3.4-5.0) g/dL Globulin 3.4 (2.6-4.0) g/dL Albumin/Globulin Ratio 0.8 L (0.9-1.6) Urine Color Urine Appearance Urine pH (5.0-8.0) Ur Specific [place] (1.001-1.035) Urine Protein (NEGATIVE) mg/dL Urine Glucose (UA) (NEGATIVE) mg/dL Urine Ketones (NEGATIVE) mg/dL Urine Occult Blood (NEGATIVE) Urine Nitrite (NEGATIVE) Urine Bilirubin (NEGATIVE) Urine Urobilinogen (<2.0) EU/dL Ur Leukocyte Esterase (NEGATIVE) Urine Opiates Screen (NEGATIVE) Ur Oxycodone Screen (NEGATIVE) Urine Methadone Screen (NEGATIVE) Ur Barbiturates Screen (NEGATIVE) Ur Phencyclidine Scrn (NEGATIVE) Ur Amphetamine Screen (NEGATIVE) U Methamphetamines Scrn (NEGATIVE) U Benzodiazepines Scrn (NEGATIVE) U Cocaine Metab Screen (NEGATIVE) U Marijuana (THC) Screen (NEGATIVE) Ethyl Alcohol < 3.0 mg/dL SARS-CoV-2 RNA (KEI) (NEGATIVE) 11/21/20 11/21/20 11/21/20 Range/Units 02:10 02:21 02:21 WBC (4.0-11.0) K/uL RBC (4.30-5.90) M/uL Hgb (12.0-16.0) g/dL Hct (36.0-46.0) % MCV (80.0-98.0) fL MCH (27.0-32.0) pg MCHC (31.0-37.0) g/dL RDW Std Deviation (28.0-62.0) fl RDW Coeff of Brittny (11.0-15.0) % Plt Count (150-400) K/uL MPV (7.40-12.00) fL Neut % (Auto) (48.0-80.0) % Lymph % (Auto) (16.0-40.0) % [place] % (Auto) (0.0-15.0) % Eos % (Auto) (0.0-7.0) % Baso % (Auto) (0.0-1.5) % Neut # (Auto) (1.4-5.7) K/uL Lymph # (Auto) (0.6-2.4) K/uL [place] # (Auto) (0.0-0.8) K/uL Eos # (Auto) (0.0-0.7) K/uL Baso # (Auto) (0.0-0.1) K/uL Nucleated RBC % /100WBC Nucleated RBCs # K/uL ABG pH (7.35-7.45) ABG pCO2 (35-45) mmHG ABG pO2 (80-105) mmHG ABG HCO3 (22-26) mEq/L ABG Total CO2 (23-27) mmol/L ABG Base Excess (-2.0-3.0) Sodium (136-145) mmol/L Potassium (3.5-5.1) mmol/L Chloride (98-107) mmol/L Carbon Dioxide (21.0-32.0) mmol/L BUN (7.0-18.0) mg/dL Creatinine (0.6-1.0) mg/dL Est Cr Clr Drug Dosing Estimated GFR (MDRD) ml/min Glucose (74-106) mg/dL Calcium (8.5-10.1) mg/dL Total Bilirubin (0.2-1.0) mg/dL AST (15-37) IU/L ALT (14-63) IU/L Alkaline Phosphatase (46-116) U/L Total Protein (6.4-8.2) g/dL Albumin (3.4-5.0) g/dL Globulin (2.6-4.0) g/dL Albumin/Globulin Ratio (0.9-1.6) Urine Color YELLOW Urine Appearance CLEAR Urine pH 5.0 (5.0-8.0) Ur Specific [place] >= 1.030 (1.001-1.035) Urine Protein NEGATIVE (NEGATIVE) mg/dL Urine Glucose (UA) NEGATIVE (NEGATIVE) mg/dL Urine Ketones NEGATIVE (NEGATIVE) mg/dL Urine Occult Blood NEGATIVE (NEGATIVE) Urine Nitrite NEGATIVE (NEGATIVE) Urine Bilirubin NEGATIVE (NEGATIVE) Urine Urobilinogen 1.0 (<2.0) EU/dL Ur Leukocyte Esterase NEGATIVE (NEGATIVE) Urine Opiates Screen POSITIVE (NEGATIVE) Ur Oxycodone Screen NEGATIVE (NEGATIVE) Urine Methadone Screen NEGATIVE (NEGATIVE) Ur Barbiturates Screen NEGATIVE (NEGATIVE) Ur Phencyclidine Scrn POSITIVE (NEGATIVE) Ur Amphetamine Screen NEGATIVE (NEGATIVE) U Methamphetamines Scrn NEGATIVE (NEGATIVE) U Benzodiazepines Scrn POSITIVE (NEGATIVE) U Cocaine Metab Screen NEGATIVE (NEGATIVE) U Marijuana (THC) Screen NEGATIVE (NEGATIVE) Ethyl Alcohol mg/dL SARS-CoV-2 RNA (KEI) NEGATIVE (NEGATIVE) Meds: Medications Generic Name Dose Route Start Last Admin Trade Name Freq PRN Reason Stop Dose Admin Sodium Chloride 10 ml 11/21/20 01:33 11/21/20 02:02 Sodium Chloride 0.9% 10 Ml Syringe FLUSH 10 ml ASDIRECTED PRN Administration Keep Vein Open Sodium Chloride 2.5 ml 11/21/20 01:33 11/21/20 02:02 Sodium Chloride 0.9% 2.5 Ml Syringe FLUSH 2.5 ml ASDIRECTED PRN Administration Keep Vein Open Discontinued Medications Generic Name Dose Route Start Last Admin Trade Name Freq PRN Reason Stop Dose Admin Albuterol/Ipratropium 3 ml 11/21/20 01:46 11/21/20 02:01 Albuterol/Ipratropium 3.0-0.5 Mg/3 Ml Neb Soln NEB 11/21/20 01:47 3 ml ONETIME ONE Administration Naloxone HCl 0.4 mg 11/21/20 03:29 11/21/20 03:49 Naloxone 0.4 Mg/Ml Syringe IVPUSH 11/21/20 03:30 Not Given ONETIME ONE Naloxone HCl 0.4 mg 11/21/20 03:47 11/21/20 03:48 Naloxone 0.4 Mg/Ml Sdv IVPUSH 11/21/20 03:48 0.4 mg ONETIME ONE Administration Departure - Departure Time of Disposition: 04:23 Disposition: Refer to Observation Condition: Good Clinical Impression: Altered mental status Qualifiers: Altered mental status type: unspecified Qualified Code(s): R41.82 - Altered mental status, unspecified - Discharge Information Referrals: PCP,None [Primary Care Provider] - Forms: ED Department Discharge Sepsis Event Note (ED) - Focused Exam Vital Signs: Vital Signs Temp Pulse Resp BP Pulse Ox 11/21/20 03:58 71 20 175/78 H 96 11/21/20 02:53 59 L 18 143/64 H 96 11/21/20 02:30 60 22 H 138/61 96 11/21/20 01:46 36.4 C 73 146/71 H 93 L - My Orders Last 24 Hours: My Active Orders 11/21/20 01:33 EKG Documentation Completion [RC] AM Sodium Chloride 0.9% [Saline Flush] 10 ml FLUSH ASDIRECTED PRN Sodium Chloride 0.9% [Saline Flush] 2.5 ml FLUSH ASDIRECTED PRN 11/21/20 01:34 Saline Lock Insert [OM.PC] Stat 11/21/20 01:47 RT Aerosol Therapy [RC] ASDIRECTED - Assessment/Plan Last 24 Hours: My Active Orders 11/21/20 01:33 EKG Documentation Completion [RC] AM Sodium Chloride 0.9% [Saline Flush] 10 ml FLUSH ASDIRECTED PRN Sodium Chloride 0.9% [Saline Flush] 2.5 ml FLUSH ASDIRECTED PRN 11/21/20 01:34 Saline Lock Insert [OM.PC] Stat 11/21/20 01:47 RT Aerosol Therapy [RC] ASDIRECTED
[2020-11-21 02:03] LABS: BLOOD UREA NITROGEN,BUN 9 mg/dL (7.0-18.0); CARBON DIOXIDE,CO2 27.9 mmol/L (21.0-32.0); CHLORIDE,CL 108 mmol/L (98-107); GLUCOSE RANDOM 93 mg/dL (74-106); POTASSIUM,K 3.6 mmol/L (3.5-5.1); SODIUM,NA 143 mmol/L (136-145)
--- NOTE | 2020-11-21 02:30 | CR ---
For Patients: As a result of the Cures Act, medical imaging exams and procedure reports are released immediately into your electronic medical record. You may view this report before your referring provider. If you have questions, please contact your health care provider. INDICATION: Wheezing. TECHNIQUE: Portable AP chest. COMPARISON: 08/11/2020. FINDINGS: Dual-chamber pacemaker is again noted. Stable cardiac, mediastinal and hilar contours. Pulmonary vascular congestion pattern is noted with mild interstitial prominence, suggesting low-grade CHF. No appreciable pleural fluid. No pneumothorax. IMPRESSION: See above. Dictated by Lamont Shaw MD @ 11/21/2020 2:29:30 AM Dictated by: Lamont Shaw MD @ 11/21/2020 02:29:34 (Electronically Signed)
[2020-11-21] MEDS ORDERED: Naloxone 0.4 MG/ML Syringe IVPUSH ONE (03:29)
[2020-11-21] MEDS ORDERED: Naloxone 0.4 MG/ML SDV IVPUSH ONE (03:47)
--- NOTE | 2020-11-21 04:13 | CT ---
Indication: Altered level of consciousness Technique: Nonenhanced axial CT imaging through the head. Sagittal and coronal reconstructions are provided. Comparison: CT head without contrast 08/11/2020 Findings: There is no intracranial hemorrhage, edema, or mass effect. Sanders-white matter differentiation is preserved. Mild generalized brain volume loss with mild ventricular enlargement are similar to prior. The basal cisterns are patent. The calvarium is intact. The visualized paranasal sinuses and mastoid air cells are aerated. Impression: No acute intracranial process. Stable mild ventriculomegaly. Please note that all CT scans at this facility use dose modulation, iterative reconstruction, and/or weight-based dosing when appropriate to reduce radiation dose to as low as reasonably achievable. Dictated by Julia Brito MD @ 11/21/2020 4:12:[address] Julia Brito @ Nov 21 2020 4:12AM
[2020-11-21] MEDS ORDERED: Albuterol/Ipratropium 3.0-0.5 MG/3 ML Neb Soln NEB PRN (05:15)
[2020-11-21] MEDS ORDERED: Acetaminophen 325 MG Tab PO PRN (05:15)
[2020-11-21] MEDS ORDERED: Ondansetron 4 MG/2 ML SDV IVPUSH PRN (05:15)
[2020-11-21] MEDS ORDERED: hydrALAZINE 20 MG/ML SDV IVPUSH PRN (05:15)
[2020-11-21] MEDS: Lactated Ringers 1,000 ML IV SCH ×3 (05:45→23:17)
--- NOTE | 2020-11-21 08:03 | PCM.HP.2 ---
H&P History of Present Illness - General Date of Service: 11/21/20 Admit Problem/Dx: Admission Diagnosis/Problem Admission Diagnosis/Problem Altered mental status Source of Information: Old Records History Limitations: Reports: Altered Mental Status - History of Present Illness Initial Comments - Free Text/Narative: This 70-year-old female with past medical history of CVA, multiple TIAs, HLD, HTN, A. 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 She presented to the ER with EMS with concerns of confusion. Reportedly she was in her apartment building but was unable to find her own apartment. Patient continues to be altered during interview. Poor historian at this time. In the ER no leukocytosis noted. Hemoglobin hematocrit stable. pH 7.37 PCO2 49 PO2 99 HCO3 28. Chemistry otherwise negative urine negative. Urine toxicology reveals positive for opiates benzodiazepines alcohol level negative. Covid swab negative chest x-ray reveals moderate pulmonary vascular congestion with mild interstitial prominence suggesting low-grade CHF. Head CT obtained due to confusion which reveals no acute intracranial process. In the ER she was treated with DuoNeb along with Narcan. Patient remains confused and admitted f or altered mental status likely secondary to polypharmacy. - Related Data Allergies/Adverse Reactions: Allergies Allergy/AdvReac Type Severity Reaction Status Date / Time codeine Allergy Intermediate Airway Verified 11/21/20 01:53 Tightness meperidine HCl [From Demerol] Allergy Intermediate Airway Verified 11/21/20 01:53 Tightness morphine Allergy Intermediate Airway Verified 11/21/20 01:53 Tightness oxycodone [Oxycodone] Allergy Intermediate Airway Verified 11/21/20 01:53 Tightness lidocaine Allergy Anaphylactic Verified 11/21/20 01:53 Shock orphenadrine Allergy Airway Verified 11/21/20 01:53 Tightness varenicline tartrate Allergy Airway Verified 11/21/20 01:53 [From Chantix] Tightness Home Medications: Home Meds DULoxetine HCl [Duloxetine HCl] 120 mg PO DAILY 12/22/13 [History] Apixaban [Eliquis] 5 mg PO BID 08/14/15 [History] Esomeprazole [NexIUM] 40 mg PO DAILY 08/21/17 [History] Olmesartan Medoxomil 40 mg PO DAILY 09/07/19 [History] Escitalopram [Lexapro] 10 mg PO DAILY 02/02/20 [History] Furosemide 20 mg PO DAILY 02/02/20 [History] Gabapentin [Neurontin] 600 mg PO TID 02/02/20 [History] Diclofenac Sodium 1 applic TOP QID PRN 02/23/20 [History] dilTIAZem HCL [Diltiazem 24Hr ER] 240 mg PO DAILY 02/23/20 [History] Collagenase [Santyl Oint] 1 applic TOP ASDIRECTED PRN 03/08/20 [History] Hydrocodone/Acetaminophen [Hydrocodone-Acetamin 10-325 mg] 10 - 325 mg PO 6XDAY PRN 03/08/20 [History] Naloxone HCl [Narcan] 4 mg NS ONETIME PRN #1 spray 04/17/20 [Rx] Cyclobenzaprine [Flexeril] 5 mg PO TID PRN 05/13/20 [History] LORazepam [Ativan] 2 mg PO TID PRN 05/13/20 [History] risperiDONE [RisperiDAL] 0.5 mg PO BEDTIME #30 tablet 05/13/20 [Rx] traMADol [Ultram] 50 mg PO BID PRN 05/13/20 [History] Betamethasone/Clotrimazole [Lotrisone] 15 gm TOP BID #1 tube 05/14/20 [Rx] Hydrochlorothiazide/Lisinopril [Lisinopril/HCTZ 20-12.5 MG] 1 tab PO DAILY #30 tab 05/14/20 [Rx] hydrALAZINE [Apresoline] 25 mg PO QID 11/21/20 [History] hydrOXYzine pamoate [Hydroxyzine Pamoate] 25 mg PO TID PRN 11/21/20 [History] Past Medical History HEENT History: Reports: Allergic Rhinitis, Impaired Vision, Other (See Below) Other HEENT History: wears reading glasses Cardiovascular History: Reports: Afib, Arrhythmia, High Cholesterol, Hypertension, Pacemaker Respiratory History: Reports: Bronchitis, Recurrent, COPD, None, Other (See Below), SOB Other Respiratory History: was tested for sleep apnea last week, no results yet Gastrointestinal History: Reports: Cholelithiasis, GERD, None Genitourinary History: Reports: None, UTI, Recurrent [employer] E[employer]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 History: Reports: None, Musculoskeletal History: Reports: Arthritis, Fracture, Osteoporosis Other Musculoskeletal History: states chronic back and right hip pain, hx of fx right wrist and right tib-fib, wheelchair bound due to hip pain and major SOB Neurological History: Reports: CVA, TIA Other Neuro History: 6 TIAs Psychiatric History: Reports: Anxiety, Bipolar, Depression Endocrine/Metabolic History: Reports: None, Other (See Below), Obesity/BMI 30+ Other Endocrine/Metabolic History: states has 2 "lumps" on thyroid as noted on ultrasound Insulin Pump Model and Vocational Guidance Counselor: None Hematologic History: Reports: Blood Transfusion(s), None Immunologic History: Reports: None Oncologic (Cancer) History: Reports: None Dermatologic History: Reports: Eczema, None - Infectious Disease History Infectious Disease History: Reports: Measles, Mumps - Past Surgical History HEENT Surgical History: Reports: Cataract Surgery, None GI Surgical History: Reports: Bariatric Procedure, Cholecystectomy Musculoskeletal Surgical History: Reports: Hip Replacement, Knee Replacement, ORIF Social & Family History - Family History Family Medical History: No Pertinent Family History HEENT: Reports: Other (See Below) - Caffeine Use Caffeine Use: Reports: Coffee, Soda Caffeine Use Comment: Unable to obtain. Pt is falling in and out of sleep, and is groggy. - Recreational Drug Use Recreational Drug Use: No H&P Review of Systems - Review of Systems: Review Of Systems: Unable To Obtain Reason Not Obtained: Altered mental status Exam - Exam Exam: See Below - Vital Signs Vital Signs: Last Vital Signs Temp 97.6 F 11/21/20 07:55 Pulse 60 11/21/20 07:55 Resp 20 11/21/20 07:55 BP 152/61 H 11/21/20 07:55 Pulse Ox 98 11/21/20 07:55 Weight: 82.7 kg - Exam Quality Assessment: DVT Prophylaxis General: Alert, Oriented (When patient does wake up she is oriented but quickly falls back asleep) HEENT: Conjunctiva Clear, Mucosa Moist & [place], Posterior Pharynx Clear Lungs: Normal Respiratory Effort, Rhonchi (Throughout lung szymanski) Cardiovascular: Regular Rate, Regular Rhythm GI/Abdominal Exam: Normal Bowel Sounds, Soft, Non-Tender Extremities: Normal Inspection, Normal Range of Motion, Non-Tender, No Pedal Edema Neurological: Cranial Nerves Intact Neuro Extensive - Mental Status: Alert, Oriented x3, Normal Mood/Affect, Normal Cognition - Patient Data Lab Results Last 24 hrs: Laboratory Results - last 24 hr 11/21/20 11/21/20 11/21/20 Range/Units 01:30 01:30 01:43 WBC 9.38 (4.0-11.0) K/uL RBC 4.00 L (4.30-5.90) M/uL Hgb 12.1 (12.0-16.0) g/dL Hct 36.7 (36.0-46.0) % MCV 91.8 (80.0-98.0) fL MCH 30.3 (27.0-32.0) pg MCHC 33.0 (31.0-37.0) g/dL RDW Std Deviation 50.8 (28.0-62.0) fl RDW Coeff of Brittny 15 (11.0-15.0) % Plt Count 307 (150-400) K/uL MPV 11.40 (7.40-12.00) fL Neut % (Auto) 61.1 (48.0-80.0) % Lymph % (Auto) 27.9 (16.0-40.0) % [place] % (Auto) 7.8 (0.0-15.0) % Eos % (Auto) 2.8 (0.0-7.0) % Baso % (Auto) 0.4 (0.0-1.5) % Neut # (Auto) 5.7 (1.4-5.7) K/uL Lymph # (Auto) 2.6 H (0.6-2.4) K/uL [place] # (Auto) 0.7 (0.0-0.8) K/uL Eos # (Auto) 0.3 (0.0-0.7) K/uL Baso # (Auto) 0.0 (0.0-0.1) K/uL Nucleated RBC % 0.0 /100WBC Nucleated RBCs # 0 K/uL ABG pH 7.37 (7.35-7.45) ABG pCO2 49 H (35-45) mmHG ABG pO2 99 (80-105) mmHG ABG HCO3 28 H (22-26) mEq/L ABG Total CO2 26.1 (23-27) mmol/L ABG Base Excess 2.2 (-2.0-3.0) Sodium 143 (136-145) mmol/L Potassium 3.6 (3.5-5.1) mmol/L Chloride 108 H (98-107) mmol/L Carbon Dioxide 27.9 (21.0-32.0) mmol/L BUN 9 (7.0-18.0) mg/dL Creatinine 0.8 (0.6-1.0) mg/dL Est Cr Clr Drug Dosing TNP Estimated GFR (MDRD) > 60.0 ml/min Glucose 93 (74-106) mg/dL Calcium 8.2 L (8.5-10.1) mg/dL Total Bilirubin 0.3 (0.2-1.0) mg/dL AST 16 (15-37) IU/L ALT 17 (14-63) IU/L Alkaline Phosphatase 140 H (46-116) U/L Total Protein 6.2 L (6.4-8.2) g/dL Albumin 2.8 L (3.4-5.0) g/dL Globulin 3.4 (2.6-4.0) g/dL Albumin/Globulin Ratio 0.8 L (0.9-1.6) Urine Color Urine Appearance Urine pH (5.0-8.0) Ur Specific [place] (1.001-1.035) Urine Protein (NEGATIVE) mg/dL Urine Glucose (UA) (NEGATIVE) mg/dL Urine Ketones (NEGATIVE) mg/dL Urine Occult Blood (NEGATIVE) Urine Nitrite (NEGATIVE) Urine Bilirubin (NEGATIVE) Urine Urobilinogen (<2.0) EU/dL Ur Leukocyte Esterase (NEGATIVE) Urine Opiates Screen (NEGATIVE) Ur Oxycodone Screen (NEGATIVE) Urine Methadone Screen (NEGATIVE) Ur Barbiturates Screen (NEGATIVE) Ur Phencyclidine Scrn (NEGATIVE) Ur Amphetamine Screen (NEGATIVE) U Methamphetamines Scrn (NEGATIVE) U Benzodiazepines Scrn (NEGATIVE) U Cocaine Metab Screen (NEGATIVE) U Marijuana (THC) Screen (NEGATIVE) Ethyl Alcohol < 3.0 mg/dL SARS-CoV-2 RNA (KEI) (NEGATIVE) 11/21/20 11/21/20 11/21/20 Range/Units 02:10 02:21 02:21 WBC (4.0-11.0) K/uL RBC (4.30-5.90) M/uL Hgb (12.0-16.0) g/dL Hct (36.0-46.0) % MCV (80.0-98.0) fL MCH (27.0-32.0) pg MCHC (31.0-37.0) g/dL RDW Std Deviation (28.0-62.0) fl RDW Coeff of Brittny (11.0-15.0) % Plt Count (150-400) K/uL MPV (7.40-12.00) fL Neut % (Auto) (48.0-80.0) % Lymph % (Auto) (16.0-40.0) % Storey % (Auto) (0.0-15.0) % Eos % (Auto) (0.0-7.0) % Baso % (Auto) (0.0-1.5) % Neut # (Auto) (1.4-5.7) K/uL Lymph # (Auto) (0.6-2.4) K/uL [place] # (Auto) (0.0-0.8) K/uL Eos # (Auto) (0.0-0.7) K/uL Baso # (Auto) (0.0-0.1) K/uL Nucleated RBC % /100WBC Nucleated RBCs # K/uL ABG pH (7.35-7.45) ABG pCO2 (35-45) mmHG ABG pO2 (80-105) mmHG ABG HCO3 (22-26) mEq/L ABG Total CO2 (23-27) mmol/L ABG Base Excess (-2.0-3.0) Sodium (136-145) mmol/L Potassium (3.5-5.1) mmol/L Chloride (98-107) mmol/L Carbon Dioxide (21.0-32.0) mmol/L BUN (7.0-18.0) mg/dL Creatinine (0.6-1.0) mg/dL Est Cr Clr Drug Dosing Estimated GFR (MDRD) ml/min Glucose (74-106) mg/dL Calcium (8.5-10.1) mg/dL Total Bilirubin (0.2-1.0) mg/dL AST (15-37) IU/L ALT (14-63) IU/L Alkaline Phosphatase (46-116) U/L Total Protein (6.4-8.2) g/dL Albumin (3.4-5.0) g/dL Globulin (2.6-4.0) g/dL Albumin/Globulin Ratio (0.9-1.6) Urine Color YELLOW Urine Appearance CLEAR Urine pH 5.0 (5.0-8.0) Ur Specific [place] >= 1.030 (1.001-1.035) Urine Protein NEGATIVE (NEGATIVE) mg/dL Urine Glucose (UA) NEGATIVE (NEGATIVE) mg/dL Urine Ketones NEGATIVE (NEGATIVE) mg/dL Urine Occult Blood NEGATIVE (NEGATIVE) Urine Nitrite NEGATIVE (NEGATIVE) Urine Bilirubin NEGATIVE (NEGATIVE) Urine Urobilinogen 1.0 (<2.0) EU/dL Ur Leukocyte Esterase NEGATIVE (NEGATIVE) Urine Opiates Screen POSITIVE (NEGATIVE) Ur Oxycodone Screen NEGATIVE (NEGATIVE) Urine Methadone Screen NEGATIVE (NEGATIVE) Ur Barbiturates Screen NEGATIVE (NEGATIVE) Ur Phencyclidine Scrn POSITIVE (NEGATIVE) Ur Amphetamine Screen NEGATIVE (NEGATIVE) U Methamphetamines Scrn NEGATIVE (NEGATIVE) U Benzodiazepines Scrn POSITIVE (NEGATIVE) U Cocaine Metab Screen NEGATIVE (NEGATIVE) U Marijuana (THC) Screen NEGATIVE (NEGATIVE) Ethyl Alcohol mg/dL SARS-CoV-2 RNA (KEI) NEGATIVE (NEGATIVE) Result Diagrams: 11/21/20 01:30 11/21/20 01:30 Sepsis Event Note - Evaluation Sepsis Screening Result: No Definite Risk - Focused Exam Vital Signs: Vital Signs Temp Pulse Resp BP Pulse Ox 11/21/20 07:55 97.6 F 60 20 152/61 H 98 11/21/20 05:43 97.5 F 61 16 105/49 L 96 11/21/20 05:15 97.4 F 65 19 145/76 H 100 11/21/20 03:58 71 20 175/78 H 96 11/21/20 02:53 59 L 18 143/64 H 96 11/21/20 02:30 60 22 H 138/61 96 11/21/20 01:46 97.6 F 73 146/71 H 93 L - Problem List (1) Altered mental status SNOMED Code(s): 304719413 ICD Code: R41.82 - ALTERED MENTAL STATUS, UNSPECIFIED Status: Acute Current Visit: Yes Qualifiers: Altered mental status type: unspecified Qualified Code(s): R41.82 - Altered mental status, unspecified (2) COPD (chronic obstructive pulmonary disease) SNOMED Code(s): 79800576 ICD Code: J44.9 - CHRONIC OBSTRUCTIVE PULMONARY DISEASE, UNSPECIFIED Status: Chronic Current Visit: Yes (3) H/O tachycardia-bradycardia syndrome SNOMED Code(s): 024211135406657 ICD Code: Z86.79 - PERSONAL HISTORY OF OTHER DISEASES OF THE CIRCULATORY SYSTEM Status: Chronic Current Visit: No (4) History of CVA (cerebrovascular accident) SNOMED Code(s): 219058598 ICD Code: Z86.73 - PRSNL HX OF TIA (TIA), AND CEREB INFRC W/O RESID DEFICITS Status: Chronic Current Visit: No (5) Hx of TIA (transient ischemic attack) and stroke SNOMED Code(s): 908036408, 164580887, 379715252 ICD Code: Z86.73 - PRSNL HX OF TIA (TIA), AND CEREB INFRC W/O RESID DEFICITS Status: Chronic Current Visit: No (6) Pacemaker SNOMED Code(s): 605896302 ICD Code: Z95.0 - PRESENCE OF CARDIAC PACEMAKER Status: Chronic Current Visit: No (7) Polypharmacy SNOMED Code(s): 616329717 ICD Code: Z79.899 - OTHER PUBLICATION MANAGER (CURRENT) DRUG THERAPY Status: Chronic Current Visit: No (8) Afib SNOMED Code(s): 56431081 ICD Code: I48.91 - UNSPECIFIED ATRIAL FIBRILLATION Status: Chronic Current Visit: No Qualifiers: Atrial fibrillation type: persistent (not longstanding) Qualified Code(s): I48.19 - Other persistent atrial fibrillation; I48.1 - Persistent atrial fibrillation (9) HLD (hyperlipidemia) SNOMED Code(s): 40745069 ICD Code: E78.5 - HYPERLIPIDEMIA, UNSPECIFIED Status: Chronic Current Visit: No (10) HTN (hypertension) SNOMED Code(s): 29208210 ICD Code: I10 - ESSENTIAL (PRIMARY) HYPERTENSION Status: Chronic Current Visit: No (11) Wheelchair bound SNOMED Code(s): 239539910, 639806320 ICD Code: Z99.3 - DEPENDENCE ON WHEELCHAIR Status: Chronic Current Visit: No (12) Chronic pain SNOMED Code(s): 66420656 ICD Code: G89.29 - OTHER CHRONIC PAIN Status: Chronic Current Visit: Yes Problem List Initiated/Reviewed/Updated: Yes Orders Last 24hrs: Active Orders 24 hr Category Date Time Status Admission Status [Patient Status] [ADT] Stat ADT 11/21/20 04:24 Active Antiembolic Devices [RC] PER UNIT ROUTINE Care 11/21/20 05:15 Active EKG Documentation Completion [RC] AM Care 11/21/20 01:33 Active Oxygen Therapy [RC] CONTINUOUS Care 11/21/20 05:15 Active Positioning, Patient [RC] ASDIRECTED Care 11/21/20 05:15 Active Pulse Oximetry [RC] Q4H Care 11/21/20 05:15 Active RT Aerosol Therapy [RC] ASDIRECTED Care 11/21/20 01:47 Active RT Aerosol Therapy [RC] ASDIRECTED Care 11/21/20 05:22 Active Telemetry Monitoring [Cardiac Monitoring] [RC] . Care 11/21/20 05:25 Active DIRECTED Vital Signs [RC] Q4H Care 11/21/20 05:15 Active Nothing Per Oral Diet [DIET] Diet 11/21/20 Breakfast Active Acetaminophen [TylenoL] Med 11/21/20 05:15 Active 650 mg PO Q6H PRN Albuterol/Ipratropium [DuoNeb 3.0-0.5 MG/3 ML] Med 11/21/20 05:15 Active 3 ml NEB Q4HRRT PRN Lactated Ringers [Ringers, Lactated] 1,000 ml Med 11/21/20 05:15 Active IV ASDIRECTED Ondansetron [Zofran] Med 11/21/20 05:15 Active 4 mg IVPUSH Q4H PRN Sodium Chloride 0.9% [Saline Flush] Med 11/21/20 01:33 Active 10 ml FLUSH ASDIRECTED PRN Sodium Chloride 0.9% [Saline Flush] Med 11/21/20 01:33 Active 2.5 ml FLUSH ASDIRECTED PRN hydrALAZINE [Apresoline] Med 11/21/20 05:15 Active 20 mg IVPUSH Q4H PRN Saline Lock Insert [OM.PC] Stat Oth 11/21/20 01:34 Ordered Sequential Compression Device [OM.PC] Routine Oth 11/21/20 05:15 Ordered Medication Orders Acetaminophen (Acetaminophen 325 Mg Tab) 650 mg PO Q6H PRN PRN Reason: Pain Albuterol/Ipratropium (Albuterol/Ipratropium 3.0-0.5 Mg/3 Ml Neb Soln) 3 ml NEB Q4HRRT PRN PRN Reason: Shortness of Breath Hydralazine HCl (Hydralazine 20 Mg/Ml Sdv) 20 mg IVPUSH Q4H PRN PRN Reason: Hypertension Lactated Ringer's (Ringers, Lactated) 1,000 mls @ 125 mls/hr IV ASDIRECTED JARVIS Last Admin: 11/21/20 05:45 Dose: 125 mls/hr Documented by: PINO Ondansetron HCl (Ondansetron 4 Mg/2 Ml Sdv) 4 mg IVPUSH Q4H PRN PRN Reason: Nausea/Vomiting Sodium Chloride (Sodium Chloride 0.9% 10 Ml Syringe) 10 ml FLUSH ASDIRECTED PRN PRN Reason: Keep Vein Open Last Admin: 11/21/20 02:02 Dose: 10 ml Documented by: TEN Sodium Chloride (Sodium Chloride 0.9% 2.5 Ml Syringe) 2.5 ml FLUSH ASDIRECTED PRN PRN Reason: Keep Vein Open Last Admin: 11/21/20 02:02 Dose: 2.5 ml Documented by: TEN Assessment/Plan Comment:: This 70-year-old female admitted with altered mental status likely secondary to polypharmacy 1. Altered mental status/confusion -We will withhold benzodiazepines, narcotics and muscle relaxers -In the past patient usually wakes up and is alert and requesting to leave. -Continue to monitor closely neurochecks due to history of TIA/CVA -Continue LR 125 -Likely secondary to polypharmacy patient reportedly on hydroxyzine, Ativan, tramadol, [place] and gabapentin 2. A. fib/HLD/HTN/CVA -Continue Eliquis and statin 3. Pulmonary fibrosis/COPD -Oxygen as needed -X-ray reveals mild pulmonary congestion possible CHF -No acute signs of infection -DuoNebs as needed VTE prophylaxis: Eliquis GI prophylaxis: Protonix CODE STATUS: Full code Dispo 1 to 2 days pending improvement. - Mortality Measure Prognosis:: Good
[2020-11-21] MEDS ORDERED: Sodium Chloride 0.9% 2.5 ML Syringe FLUSH PRN (08:06)
[2020-11-21] MEDS: hydrALAZINE 25 MG Tab PO SCH ×4 (13:01→23:20)
[2020-11-21] MEDS: Apixaban 5 MG Tab PO SCH ×2 (13:02→20:12)
[2020-11-21] MEDS: Diltiazem 120 MG Cap.CD PO SCH (13:03)
[2020-11-22] MEDS: hydrALAZINE 25 MG Tab PO SCH ×2 (06:18→12:24)
[2020-11-22 06:28] LABS: BLOOD UREA NITROGEN,BUN 7 mg/dL (7.0-18.0); CARBON DIOXIDE,CO2 30.1 mmol/L (21.0-32.0); CHLORIDE,CL 109 mmol/L (98-107); GLUCOSE RANDOM 101 mg/dL (74-106); POTASSIUM,K 3.1 mmol/L (3.5-5.1); SODIUM,NA 145 mmol/L (136-145)
[2020-11-22] MEDS: Lactated Ringers 1,000 ML IV SCH (07:19)
[2020-11-22] MEDS: Apixaban 5 MG Tab PO SCH (08:59)
[2020-11-22] MEDS: Potassium Chloride 20 MEQ Tab.ER PO SCH ×2 (08:59→12:24)
[2020-11-22] MEDS: Diltiazem 120 MG Cap.CD PO SCH (08:59)
--- NOTE | 2020-11-22 09:30 | PCM.PN ---
- General Info Date of Service: 11/22/20 Admission Dx/Problem (Free Text): Admission Diagnosis/Problem Admission Diagnosis/Problem Altered mental status - Patient Data Vitals - Most Recent: Last Vital Signs Temp 99.0 F 11/22/20 09:00 Pulse 85 11/22/20 09:00 Resp 20 11/22/20 09:00 BP 172/74 H 11/22/20 09:00 Pulse Ox 99 11/22/20 09:00 Weight - Most Recent: 82.7 kg I&O - Last 24 Hours: Intake & Output 11/21/20 11/22/20 11/22/20 22:59 06:59 14:59 Intake Total 1550 1767 Output Total 800 Balance 1550 967 Lab Results Last 24 Hours: Laboratory Results - last 24 hr 11/22/20 11/22/20 Range/Units 05:17 05:17 WBC 9.96 (4.0-11.0) K/uL RBC 4.26 L (4.30-5.90) M/uL Hgb 12.5 (12.0-16.0) g/dL Hct 38.8 (36.0-46.0) % MCV 91.1 (80.0-98.0) fL MCH 29.3 (27.0-32.0) pg MCHC 32.2 (31.0-37.0) g/dL RDW Std Deviation 48.8 (28.0-62.0) fl RDW Coeff of Brittny 15 (11.0-15.0) % Plt Count 306 (150-400) K/uL MPV 12.20 H (7.40-12.00) fL Neut % (Auto) 70.6 (48.0-80.0) % Lymph % (Auto) 21.2 (16.0-40.0) % [place] % (Auto) 6.2 (0.0-15.0) % Eos % (Auto) 1.7 (0.0-7.0) % Baso % (Auto) 0.3 (0.0-1.5) % Neut # (Auto) 7.0 H (1.4-5.7) K/uL Lymph # (Auto) 2.1 (0.6-2.4) K/uL [place] # (Auto) 0.6 (0.0-0.8) K/uL Eos # (Auto) 0.2 (0.0-0.7) K/uL Baso # (Auto) 0.0 (0.0-0.1) K/uL Nucleated RBC % 0.0 /100WBC Nucleated RBCs # 0 K/uL Sodium 145 (136-145) mmol/L Potassium 3.1 L (3.5-5.1) mmol/L Chloride 109 H (98-107) mmol/L Carbon Dioxide 30.1 (21.0-32.0) mmol/L BUN 7 (7.0-18.0) mg/dL Creatinine 0.8 (0.6-1.0) mg/dL Est Cr Clr Drug Dosing 59.72 mL/min Estimated GFR (MDRD) > 60.0 ml/min Glucose 101 (74-106) mg/dL Calcium 8.2 L (8.5-10.1) mg/dL Magnesium 1.9 (1.8-2.4) mg/dL Med Orders - Current: Current Medications Acetaminophen (Acetaminophen 325 Mg Tab) 650 mg PO Q6H PRN PRN Reason: Pain Last Admin: 11/21/20 20:12 Dose: 650 mg Documented by: Albuterol/Ipratropium (Albuterol/Ipratropium 3.0-0.5 Mg/3 Ml Neb Soln) 3 ml NEB Q4HRRT PRN PRN Reason: Shortness of Breath Apixaban (Apixaban 5 Mg Tab) 5 mg PO BID [facility] Last Admin: 11/22/20 08:59 Dose: 5 mg Documented by: Diltiazem HCl (Diltiazem 120 Mg Cap.Cd) 240 mg PO DAILY [facility] Last Admin: 11/22/20 08:59 Dose: 240 mg Documented by: Hydralazine HCl (Hydralazine 20 Mg/Ml Sdv) 20 mg IVPUSH Q4H PRN PRN Reason: Hypertension Hydralazine HCl (Hydralazine 25 Mg Tab) 25 mg PO QID [facility] Last Admin: 11/22/20 06:18 Dose: 25 mg Documented by: Ondansetron HCl (Ondansetron 4 Mg/2 Ml Sdv) 4 mg IVPUSH Q4H PRN PRN Reason: Nausea/Vomiting Last Admin: 11/22/20 08:28 Dose: 4 mg Documented by: Potassium Chloride (Potassium Chloride 20 Meq Tab.Er) 40 meq PO BID@0800,1200 [facility] Stop: 11/22/20 12:01 Last Admin: 11/22/20 08:59 Dose: 40 meq Documented by: Sodium Chloride (Sodium Chloride 0.9% 2.5 Ml Syringe) 2.5 ml FLUSH ASDIRECTED PRN PRN Reason: Keep Vein Open Discontinued Medications Albuterol/Ipratropium (Albuterol/Ipratropium 3.0-0.5 Mg/3 Ml Neb Soln) 3 ml NEB ONETIME ONE Stop: 11/21/20 01:47 Last Admin: 11/21/20 02:01 Dose: 3 ml Documented by: Lactated Ringer's (Ringers, Lactated) 1,000 mls @ 125 mls/hr IV ASDIRECTED [facility] Last Admin: 11/22/20 07:19 Dose: 125 mls/hr Documented by: Naloxone HCl (Naloxone 0.4 Mg/Ml Syringe) 0.4 mg IVPUSH ONETIME ONE Stop: 11/21/20 03:30 Last Admin: 11/21/20 03:49 Dose: Not Given Documented by: Naloxone HCl (Naloxone 0.4 Mg/Ml Sdv) 0.4 mg IVPUSH ONETIME ONE Stop: 11/21/20 03:48 Last Admin: 11/21/20 03:48 Dose: 0.4 mg Documented by: Sodium Chloride (Sodium Chloride 0.9% 10 Ml Syringe) 10 ml FLUSH ASDIRECTED PRN PRN Reason: Keep Vein Open Last Admin: 11/21/20 02:02 Dose: 10 ml Documented by: Sodium Chloride (Sodium Chloride 0.9% 2.5 Ml Syringe) 2.5 ml FLUSH ASDIRECTED PRN PRN Reason: Keep Vein Open Last Admin: 11/21/20 02:02 Dose: 2.5 ml Documented by: - Patient Data Lab Results Last 24 hrs: Laboratory Results - last 24 hr 11/22/20 11/22/20 Range/Units 05:17 05:17 WBC 9.96 (4.0-11.0) K/uL RBC 4.26 L (4.30-5.90) M/uL Hgb 12.5 (12.0-16.0) g/dL Hct 38.8 (36.0-46.0) % MCV 91.1 (80.0-98.0) fL MCH 29.3 (27.0-32.0) pg MCHC 32.2 (31.0-37.0) g/dL RDW Std Deviation 48.8 (28.0-62.0) fl RDW Coeff of Brittny 15 (11.0-15.0) % Plt Count 306 (150-400) K/uL MPV 12.20 H (7.40-12.00) fL Neut % (Auto) 70.6 (48.0-80.0) % Lymph % (Auto) 21.2 (16.0-40.0) % [place] % (Auto) 6.2 (0.0-15.0) % Eos % (Auto) 1.7 (0.0-7.0) % Baso % (Auto) 0.3 (0.0-1.5) % Neut # (Auto) 7.0 H (1.4-5.7) K/uL Lymph # (Auto) 2.1 (0.6-2.4) K/uL [place] # (Auto) 0.6 (0.0-0.8) K/uL Eos # (Auto) 0.2 (0.0-0.7) K/uL Baso # (Auto) 0.0 (0.0-0.1) K/uL Nucleated RBC % 0.0 /100WBC Nucleated RBCs # 0 K/uL Sodium 145 (136-145) mmol/L Potassium 3.1 L (3.5-5.1) mmol/L Chloride 109 H (98-107) mmol/L Carbon Dioxide 30.1 (21.0-32.0) mmol/L BUN 7 (7.0-18.0) mg/dL Creatinine 0.8 (0.6-1.0) mg/dL Est Cr Clr Drug Dosing 59.72 mL/min Estimated GFR (MDRD) > 60.0 ml/min Glucose 101 (74-106) mg/dL Calcium 8.2 L (8.5-10.1) mg/dL Magnesium 1.9 (1.8-2.4) mg/dL Result Diagrams: 11/22/20 05:17 11/22/20 05:17 Sepsis Event Note - Evaluation Sepsis Screening Result: No Definite Risk - Focused Exam Vital Signs: Vital Signs Temp Pulse Pulse Resp BP BP Pulse Ox 11/22/20 09:00 99.0 F 85 20 172/74 H 99 11/22/20 08:59 85 172/74 H 11/22/20 06:18 170/80 H 11/22/20 04:00 98.7 F 60 18 170/84 H 94 L 11/21/20 23:20 97 F 62 18 158/70 H 158/70 H 94 L - Problem List & Annotations (1) Altered mental status SNOMED Code(s): 786272213 Code(s): R41.82 - ALTERED MENTAL STATUS, UNSPECIFIED Status: Acute Current Visit: Yes Qualifiers: Altered mental status type: unspecified Qualified Code(s): R41.82 - Altered mental status, unspecified (2) COPD (chronic obstructive pulmonary disease) SNOMED Code(s): 55649406 Code(s): J44.9 - CHRONIC OBSTRUCTIVE PULMONARY DISEASE, UNSPECIFIED Status: Chronic Current Visit: Yes (3) H/O tachycardia-bradycardia syndrome SNOMED Code(s): 151824367123421 Code(s): Z86.79 - PERSONAL HISTORY OF OTHER DISEASES OF THE CIRCULATORY SYSTEM Status: Chronic Current Visit: No (4) History of CVA (cerebrovascular accident) SNOMED Code(s): 879313461 Code(s): Z86.73 - PRSNL HX OF TIA (TIA), AND CEREB INFRC W/O RESID DEFICITS Status: Chronic Current Visit: No (5) Hx of TIA (transient ischemic attack) and stroke SNOMED Code(s): 134138601, 158799210, 870778215 Code(s): Z86.73 - PRSNL HX OF TIA (TIA), AND CEREB INFRC W/O RESID DEFICITS Status: Chronic Current Visit: No (6) Pacemaker SNOMED Code(s): 728205981 Code(s): Z95.0 - PRESENCE OF CARDIAC PACEMAKER Status: Chronic Current Visit: No (7) Polypharmacy SNOMED Code(s): 284197700 Code(s): Z79.899 - OTHER TOOL CRIB LEAD (CURRENT) DRUG THERAPY Status: Chronic Current Visit: No (8) Afib SNOMED Code(s): 96096835 Code(s): I48.91 - UNSPECIFIED ATRIAL FIBRILLATION Status: Chronic Current Visit: No Qualifiers: Atrial fibrillation type: persistent (not longstanding) Qualified Code(s): I48.19 - Other persistent atrial fibrillation; I48.1 - Persistent atrial fibrillation (9) HLD (hyperlipidemia) SNOMED Code(s): 22986342 Code(s): E78.5 - HYPERLIPIDEMIA, UNSPECIFIED Status: Chronic Current Visit: No (10) HTN (hypertension) SNOMED Code(s): 31062121 Code(s): I10 - ESSENTIAL (PRIMARY) HYPERTENSION Status: Chronic Current Visit: No (11) Wheelchair bound SNOMED Code(s): 545602165, 493652984 Code(s): Z99.3 - DEPENDENCE ON WHEELCHAIR Status: Chronic Current Visit: No (12) Chronic pain SNOMED Code(s): 73034555 Code(s): G89.29 - OTHER CHRONIC PAIN Status: Chronic Current Visit: Yes - My Orders Last 24 Hours: My Active Orders 11/21/20 09:00 Apixaban [Eliquis] 5 mg PO BID Diltiazem [Cardizem CD] 240 mg PO DAILY 11/21/20 13:18 Resuscitation Status Routine 11/21/20 Dinner Heart Healthy Diet [DIET] 11/22/20 08:00 Potassium Chloride [Klor-Con M20] 40 meq PO BID@0800,1200 - Plan Plan:: This 70-year-old female admitted with altered mental status likely secondary to polypharmacy 1. Altered mental status/confusion -We will withhold benzodiazepines, narcotics and muscle relaxers -In the past patient usually wakes up and is alert and requesting to leave. -Continue to monitor closely neurochecks due to history of TIA/CVA -Continue LR 125 -Likely secondary to polypharmacy patient reportedly on hydroxyzine, Ativan, tramadol, [place] and gabapentin 2. A. fib/HLD/HTN/CVA -Continue Eliquis and statin 3. Pulmonary fibrosis/COPD -Oxygen as needed -X-ray reveals mild pulmonary congestion possible CHF -No acute signs of infection -DuoNebs as needed VTE prophylaxis: Eliquis GI prophylaxis: Protonix CODE STATUS: Full code Dispo 1 to 2 days pending improvement.
[2020-11-22] MEDS ORDERED: LORazepam 1 MG Tab PO PRN (10:08)
[2020-11-22 12:14] VITALS: BP 171/78; PULSE 72
--- NOTE | 2020-11-22 13:04 | PCM.DCSUM1 ---
Discharge Summary - Hospital Course Brief History: This 70-year-old female with past medical history of CVA, multiple TIAs, HLD, HTN, A. fib on Xarelto, pacemaker due to tachybradycardia syndrome, CAD, nonambulatory and wheelchair-bound along with multiple admissions for altered mental status secondary to polypharmacy at home. She presented to the ER with EMS with concerns of confusion. Reportedly she was in her apartment building but was unable to find her own apartment. Patient continues to be altered during interview. Poor historian at this time. In the ER no leukocytosis noted. Hemoglobin hematocrit stable. pH 7.37 PCO2 49 PO2 99 HCO3 28. Chemistry otherwise negative urine negative. Urine toxicology reveals positive for opiates benzodiazepines alcohol level negative. Covid swab negative chest x-ray reveals moderate pulmonary vascular congestion with mild interstitial prominence suggesting low-grade CHF. Head CT obtained due to confusion which reveals no acute intracranial process. In the ER she was treated with DuoNeb along with Narcan. Patient remains confused and admitted for altered mental status likely secondary to polypharmacy. - Discharge Data Discharge Date: 11/22/20 Discharge Disposition: Home, Self-Care 01 Condition: Good - Referral to Home Health Primary Care Physician: PCP None - Discharge Diagnosis/Problem(s) (1) Altered mental status SNOMED Code(s): 359647140 ICD Code: R41.82 - ALTERED MENTAL STATUS, UNSPECIFIED Status: Acute Current Visit: Yes Qualifiers: Altered mental status type: unspecified Qualified Code(s): R41.82 - Altered mental status, unspecified (2) COPD (chronic obstructive pulmonary disease) SNOMED Code(s): 97424499 ICD Code: J44.9 - CHRONIC OBSTRUCTIVE PULMONARY DISEASE, UNSPECIFIED Status: Chronic Current Visit: Yes (3) H/O tachycardia-bradycardia syndrome SNOMED Code(s): 325182843743105 ICD Code: Z86.79 - PERSONAL HISTORY OF OTHER DISEASES OF THE CIRCULATORY SYSTEM Status: Chronic Current Visit: No (4) History of CVA (cerebrovascular accident) SNOMED Code(s): 690915737 ICD Code: Z86.73 - PRSNL HX OF TIA (TIA), AND CEREB INFRC W/O RESID DEFICITS Status: Chronic Current Visit: No (5) Hx of TIA (transient ischemic attack) and stroke SNOMED Code(s): 135272407, 556939493, 741462428 ICD Code: Z86.73 - PRSNL HX OF TIA (TIA), AND CEREB INFRC W/O RESID DEFICITS Status: Chronic Current Visit: No (6) Pacemaker SNOMED Code(s): 581719524 ICD Code: Z95.0 - PRESENCE OF CARDIAC PACEMAKER Status: Chronic Current Visit: No (7) Polypharmacy SNOMED Code(s): 792666962 ICD Code: Z79.899 - OTHER DEVELOPMENT EDUCATOR (CURRENT) DRUG THERAPY Status: Chronic Current Visit: No (8) Afib SNOMED Code(s): 54522083 ICD Code: I48.91 - UNSPECIFIED ATRIAL FIBRILLATION Status: Chronic Current Visit: No Qualifiers: Atrial fibrillation type: persistent (not longstanding) Qualified Code(s): I48.19 - Other persistent atrial fibrillation; I48.1 - Persistent atrial fibrillation (9) HLD (hyperlipidemia) SNOMED Code(s): 22073397 ICD Code: E78.5 - HYPERLIPIDEMIA, UNSPECIFIED Status: Chronic Current Visit: No (10) HTN (hypertension) SNOMED Code(s): 15685006 ICD Code: I10 - ESSENTIAL (PRIMARY) HYPERTENSION Status: Chronic Current Visit: No (11) Wheelchair bound SNOMED Code(s): 225527060, 180273866 ICD Code: Z99.3 - DEPENDENCE ON WHEELCHAIR Status: Chronic Current Visit: No (12) Chronic pain SNOMED Code(s): 76916325 ICD Code: G89.29 - OTHER CHRONIC PAIN Status: Chronic Current Visit: Yes - Patient Summary/Data Hospital Course: Admission diagnoses Altered mental status Polypharmacy Discharge diagnoses Altered mental status-resolved Polypharmacy Other PMH COPD Pacemaker A. fib Anticoagulation HLD HTN Wheelchair-bound Chronic pain [place] was admitted secondary to altered mental status patient has been admitted previously for similar events. Patient has significant amount of sedating medications which she takes at home. Patient more awake today after all medications on hold besides antihypertensive and anticoagulation. Patient reports that she does not remember taking any more than usual pain medication or sedating medications at home. She reports that she takes her Ativan as needed. Feels that she probably took more than she should have but unwilling to articulate further at what she took or how many. She is alert and oriented this morning feeling slightly nauseated which could be related to benzodiazepine withdrawal. We will give Ativan this morning home dose as needed. Patient is requesting discharge home as she is now alert and oriented. Lab work stable. She was counseled again on monitoring closely her medication administration. She is to have follow-up with PCP in 1 to 2 weeks. Return to the ER clinic sooner if concerns should arise. - Patient Instructions Diet: Regular Diet as Tolerated Activity: As Tolerated, No Strenuous Activities Driving: Do Not Drive Showering/Bathing: May Shower Notify Provider of: Fever, Increased Pain, Swelling and Redness, Drainage, Nausea and/or Vomiting - Discharge Plan *PRESCRIPTION DRUG MONITORING PROGRAM REVIEWED*: Not Applicable *COPY OF PRESCRIPTION DRUG MONITORING REPORT IN PATIENT ALMA ROSA: Not Applicable Home Medications: Home Meds DULoxetine HCl [Duloxetine HCl] 120 mg PO DAILY 12/22/13 [History] Apixaban [Eliquis] 5 mg PO BID 08/14/15 [History] Esomeprazole [NexIUM] 40 mg PO DAILY 08/21/17 [History] Escitalopram [Lexapro] 10 mg PO DAILY 02/02/20 [History] Gabapentin [Neurontin] 600 mg PO TID 02/02/20 [History] dilTIAZem HCL [Diltiazem 24Hr ER] 240 mg PO DAILY 02/23/20 [History] Hydrocodone/Acetaminophen [Hydrocodone-Acetamin 10-325 mg] 10 - 325 mg PO 6XDAY PRN 03/08/20 [History] Naloxone HCl [Narcan] 4 mg NS ONETIME PRN #1 spray 04/17/20 [Rx] Cyclobenzaprine [Flexeril] 5 mg PO TID PRN 05/13/20 [History] LORazepam [Ativan] 2 mg PO TID PRN 05/13/20 [History] traMADol [Ultram] 50 mg PO BID PRN 05/13/20 [History] hydrALAZINE [Apresoline] 25 mg PO QID 11/21/20 [History] hydrOXYzine pamoate [Hydroxyzine Pamoate] 25 mg PO TID PRN 11/21/20 [History] hydroCHLOROthiazide [Hydrochlorothiazide] 25 mg PO DAILY 11/22/20 [History] Oxygen Therapy Mode: Room Air Patient Handouts: Confusion, Chronic Obstructive Pulmonary Disease, [id number], Chronic Back Pain, [id number] Referrals: Meghna Irby DO [Ordering Only Provider] - - Discharge Summary/Plan Comment DC Time >30 min.: No - Patient Data Vitals - Most Recent: Last Vital Signs Temp 97.8 F 11/22/20 12:13 Pulse 72 11/22/20 12:13 Resp 20 11/22/20 12:13 BP 171/78 H 11/22/20 12:24 Pulse Ox 95 11/22/20 12:13 Weight - Most Recent: 82.7 kg I&O - Last 24 hours: Intake & Output 11/21/20 11/22/20 11/22/20 22:59 06:59 14:59 Intake Total 1550 1767 Output Total 800 Balance 1550 967 Lab Results - Last 24 hrs: Laboratory Results - last 24 hr 11/22/20 11/22/20 Range/Units 05:17 05:17 WBC 9.96 (4.0-11.0) K/uL RBC 4.26 L (4.30-5.90) M/uL Hgb 12.5 (12.0-16.0) g/dL Hct 38.8 (36.0-46.0) % MCV 91.1 (80.0-98.0) fL MCH 29.3 (27.0-32.0) pg MCHC 32.2 (31.0-37.0) g/dL RDW Std Deviation 48.8 (28.0-62.0) fl RDW Coeff of Brittny 15 (11.0-15.0) % Plt Count 306 (150-400) K/uL MPV 12.20 H (7.40-12.00) fL Neut % (Auto) 70.6 (48.0-80.0) % Lymph % (Auto) 21.2 (16.0-40.0) % [place] % (Auto) 6.2 (0.0-15.0) % Eos % (Auto) 1.7 (0.0-7.0) % Baso % (Auto) 0.3 (0.0-1.5) % Neut # (Auto) 7.0 H (1.4-5.7) K/uL Lymph # (Auto) 2.1 (0.6-2.4) K/uL [place] # (Auto) 0.6 (0.0-0.8) K/uL Eos # (Auto) 0.2 (0.0-0.7) K/uL Baso # (Auto) 0.0 (0.0-0.1) K/uL Nucleated RBC % 0.0 /100WBC Nucleated RBCs # 0 K/uL Sodium 145 (136-145) mmol/L Potassium 3.1 L (3.5-5.1) mmol/L Chloride 109 H (98-107) mmol/L Carbon Dioxide 30.1 (21.0-32.0) mmol/L BUN 7 (7.0-18.0) mg/dL Creatinine 0.8 (0.6-1.0) mg/dL Est Cr Clr Drug Dosing 59.72 mL/min Estimated GFR (MDRD) > 60.0 ml/min Glucose 101 (74-106) mg/dL Calcium 8.2 L (8.5-10.1) mg/dL Magnesium 1.9 (1.8-2.4) mg/dL Med Orders - Current: Current Medications Acetaminophen (Acetaminophen 325 Mg Tab) 650 mg PO Q6H PRN PRN Reason: Pain Last Admin: 11/21/20 20:12 Dose: 650 mg Documented by: Albuterol/Ipratropium (Albuterol/Ipratropium 3.0-0.5 Mg/3 Ml Neb Soln) 3 ml NEB Q4HRRT PRN PRN Reason: Shortness of Breath Apixaban (Apixaban 5 Mg Tab) 5 mg PO BID [facility] Last Admin: 11/22/20 08:59 Dose: 5 mg Documented by: Diltiazem HCl (Diltiazem 120 Mg Cap.Cd) 240 mg PO DAILY [facility] Last Admin: 11/22/20 08:59 Dose: 240 mg Documented by: Hydralazine HCl (Hydralazine 20 Mg/Ml Sdv) 20 mg IVPUSH Q4H PRN PRN Reason: Hypertension Hydralazine HCl (Hydralazine 25 Mg Tab) 25 mg PO QID [facility] Last Admin: 11/22/20 12:24 Dose: 25 mg Documented by: Lorazepam (Lorazepam 1 Mg Tab) 2 mg PO TID PRN PRN Reason: Anxiety Last Admin: 11/22/20 10:17 Dose: 2 mg Documented by: Ondansetron HCl (Ondansetron 4 Mg/2 Ml Sdv) 4 mg IVPUSH Q4H PRN PRN Reason: Nausea/Vomiting Last Admin: 11/22/20 08:28 Dose: 4 mg Documented by: Sodium Chloride (Sodium Chloride 0.9% 2.5 Ml Syringe) 2.5 ml FLUSH ASDIRECTED PRN PRN Reason: Keep Vein Open Discontinued Medications Albuterol/Ipratropium (Albuterol/Ipratropium 3.0-0.5 Mg/3 Ml Neb Soln) 3 ml NEB ONETIME ONE Stop: 11/21/20 01:47 Last Admin: 11/21/20 02:01 Dose: 3 ml Documented by: Lactated Ringer's (Ringers, Lactated) 1,000 mls @ 125 mls/hr IV ASDIRECTED [facility] Last Admin: 11/22/20 07:19 Dose: 125 mls/hr Documented by: Naloxone HCl (Naloxone 0.4 Mg/Ml Syringe) 0.4 mg IVPUSH ONETIME ONE Stop: 11/21/20 03:30 Last Admin: 11/21/20 03:49 Dose: Not Given Documented by: Naloxone HCl (Naloxone 0.4 Mg/Ml Sdv) 0.4 mg IVPUSH ONETIME ONE Stop: 11/21/20 03:48 Last Admin: 11/21/20 03:48 Dose: 0.4 mg Documented by: Potassium Chloride (Potassium Chloride 20 Meq Tab.Er) 40 meq PO BID@0800,1200 [facility] Stop: 11/22/20 12:01 Last Admin: 11/22/20 12:24 Dose: 40 meq Documented by: Sodium Chloride (Sodium Chloride 0.9% 10 Ml Syringe) 10 ml FLUSH ASDIRECTED PRN PRN Reason: Keep Vein Open Last Admin: 11/21/20 02:02 Dose: 10 ml Documented by: Sodium Chloride (Sodium Chloride 0.9% 2.5 Ml Syringe) 2.5 ml FLUSH ASDIRECTED PRN PRN Reason: Keep Vein Open Last Admin: 11/21/20 02:02 Dose: 2.5 ml Documented by:
== END 2020-11-22 14:40 | disposition home or self-care (01) ==
LOC: MW.ED 01:33 → MW.MS 04:24
PROVIDERS: ADMIT Student in an Organized Health Care Education/Training Program; ATTEND Student in an Organized Health Care Education/Training Program
DX: R41.82 Altered mental status, unspecified (principal); E78.5 Hyperlipidemia, unspecified; I10 Essential (primary) hypertension; I48.91 Unspecified atrial fibrillation; D72.829 Elevated white blood cell count, unspecified; E78.00 Pure hypercholesterolemia, unspecified; G89.29 Other chronic pain; Z20.822 Contact with and (suspected) exposure to COVID-19; Z98.890 Other specified postprocedural states; Z86.73 Personal history of transient ischemic attack (TIA), and cerebral infarction without residual deficits; Z79.01 Long term (current) use of anticoagulants; Z95.0 Presence of cardiac pacemaker; Z88.5 Allergy status to narcotic agent; Z88.8 Allergy status to other drugs, medicaments and biological substances; Z79.899 Other long term (current) drug therapy
CPT/HCPCS: 36415; 36600; 70450; 71045; 80048; 80053; 80305; 80307; 81003; 82803; 83735; 85025; 93005; 96374; 96375; 99285; A9270; G0378; J2310; J2405; J7120; U0002; J7620-GY

== ENCOUNTER 2021-06-11 17:28 | Observation (INO) | payer MEDICARE, MEDICAID ==
[2021-06-11] MEDS ORDERED: Sodium Chloride 0.9% 2.5 ML Syringe FLUSH PRN (17:37)
[2021-06-11] MEDS ORDERED: Sodium Chloride 0.9% 10 ML Syringe FLUSH PRN (17:37)
[2021-06-11] MEDS ORDERED: hydrALAZINE 20 MG/ML SDV IVPUSH ONE (17:55)
[2021-06-11 18:21] LABS: BLOOD UREA NITROGEN,BUN 9 mg/dL (7.0-18.0); CARBON DIOXIDE,CO2 25.2 mmol/L (21.0-32.0); CHLORIDE,CL 102 mmol/L (98-107); GLUCOSE RANDOM 102 mg/dL (74-106); POTASSIUM,K 3.8 mmol/L (3.5-5.1); SODIUM,NA 137 mmol/L (136-145)
[2021-06-11] MEDS ORDERED: Metoprolol Tartrate 5 MG/5 ML SDV IVPUSH ONE (19:00)
[2021-06-11] MEDS ORDERED: LORazepam 1 MG Tab PO ONE (19:34)
[2021-06-11] MEDS ORDERED: Albuterol/Ipratropium 3.0-0.5 MG/3 ML Neb Soln NEB PRN (21:18)
[2021-06-11] MEDS ORDERED: Ondansetron 4 MG/2 ML SDV IVPUSH PRN (21:18)
[2021-06-11] MEDS ORDERED: Acetaminophen 325 MG Tab PO PRN (21:18)
[2021-06-11] MEDS ORDERED: Labetalol 100 MG/20 ML MDV IVPUSH PRN (21:32)
[2021-06-11] MEDS ORDERED: Ketorolac 30 MG/ML SDV IVPUSH PRN (21:34)
[2021-06-11] MEDS ORDERED: Non-Formulary Medication 1 Each (Naloxone Hcl [Narcan] 4 MG Spray) NS PRN (23:40)
[2021-06-12] MEDS: traMADol 50 MG Tab PO PRN ×2 (00:26→22:30)
[2021-06-12] MEDS: hydrALAZINE 25 MG Tab PO SCH ×4 (00:26→17:47)
[2021-06-12] MEDS: Gabapentin 300 MG Cap PO SCH ×3 (05:17→21:15)
[2021-06-12 07:42] LABS: BLOOD UREA NITROGEN,BUN 10 mg/dL (7.0-18.0); CARBON DIOXIDE,CO2 22.5 mmol/L (21.0-32.0); CHLORIDE,CL 103 mmol/L (98-107); GLUCOSE RANDOM 106 mg/dL (74-106); POTASSIUM,K 3.4 mmol/L (3.5-5.1); SODIUM,NA 137 mmol/L (136-145)
[2021-06-12] MEDS: Diltiazem 120 MG Cap.CD PO SCH (09:15)
[2021-06-12] MEDS: Hydrochlorothiazide 25 MG Tab PO SCH (09:16)
[2021-06-12] MEDS: Apixaban 5 MG Tab PO SCH ×2 (09:16→21:15)
[2021-06-12] MEDS: Pantoprazole 40 MG Tab.CR PO SCH (09:16)
[2021-06-12] MEDS: DULoxetine 60 MG Cap PO SCH (09:16)
[2021-06-12] MEDS: Escitalopram 10 MG Tab PO SCH (09:16)
[2021-06-12] MEDS ORDERED: Cyclobenzaprine 5 MG Tab PO PRN (11:00)
[2021-06-12] MEDS: Aspirin 81 MG Tab.Chew PO SCH (14:15)
[2021-06-12] MEDS: LORazepam 1 MG Tab PO SCH ×2 (16:11→21:15)
[2021-06-12] MEDS ORDERED: Iopamidol 755 MG/ML 500 ML Multipack Bottle IVPUSH STA (17:16)
[2021-06-12] MEDS: atorvaSTATin 40 MG Tab PO SCH (21:16)
[2021-06-13] MEDS: Gabapentin 300 MG Cap PO SCH ×3 (07:08→21:15)
[2021-06-13] MEDS: hydrALAZINE 25 MG Tab PO SCH ×4 (07:08→17:40)
[2021-06-13 08:00] LABS: BLOOD UREA NITROGEN,BUN 18 mg/dL (7.0-18.0); CARBON DIOXIDE,CO2 27.1 mmol/L (21.0-32.0); CHLORIDE,CL 102 mmol/L (98-107); GLUCOSE RANDOM 111 mg/dL (74-106); POTASSIUM,K 3.1 mmol/L (3.5-5.1); SODIUM,NA 136 mmol/L (136-145)
[2021-06-13] MEDS: Aspirin 81 MG Tab.Chew PO SCH (09:19)
[2021-06-13] MEDS: Potassium Chloride 20 MEQ Tab.ER PO SCH ×2 (09:19→17:40)
[2021-06-13] MEDS: Escitalopram 10 MG Tab PO SCH (09:19)
[2021-06-13] MEDS: LORazepam 1 MG Tab PO SCH ×3 (09:20→21:15)
[2021-06-13] MEDS: Pantoprazole 40 MG Tab.CR PO SCH (09:20)
[2021-06-13] MEDS: Apixaban 5 MG Tab PO SCH ×2 (09:20→21:15)
[2021-06-13] MEDS: Hydrochlorothiazide 25 MG Tab PO SCH (09:21)
[2021-06-13] MEDS: Diltiazem 120 MG Cap.CD PO SCH (09:21)
[2021-06-13] MEDS: DULoxetine 60 MG Cap PO SCH (09:22)
[2021-06-13] MEDS: Acetaminophen/HYDROcodone 325-10 MG Tab PO PRN ×2 (13:56→22:35)
[2021-06-13] MEDS: atorvaSTATin 40 MG Tab PO SCH (21:15)
[2021-06-14] MEDS: hydrALAZINE 25 MG Tab PO SCH ×3 (00:30→11:58)
[2021-06-14] MEDS: Acetaminophen/HYDROcodone 325-10 MG Tab PO PRN (04:49)
[2021-06-14] MEDS: Gabapentin 300 MG Cap PO SCH (05:00)
[2021-06-14] MEDS: Aspirin 81 MG Tab.Chew PO SCH (08:13)
[2021-06-14] MEDS: Pantoprazole 40 MG Tab.CR PO SCH (08:14)
[2021-06-14] MEDS: Escitalopram 10 MG Tab PO SCH (08:14)
[2021-06-14] MEDS: DULoxetine 60 MG Cap PO SCH (08:14)
[2021-06-14] MEDS: Apixaban 5 MG Tab PO SCH (08:14)
[2021-06-14] MEDS: LORazepam 1 MG Tab PO SCH (08:14)
[2021-06-14] MEDS: Hydrochlorothiazide 25 MG Tab PO SCH (08:15)
[2021-06-14] MEDS: Diltiazem 120 MG Cap.CD PO SCH (08:16)
[2021-06-14 11:59] VITALS: BP 110/58
[2021-06-14 15:00] VITALS: PULSE 62
== END 2021-06-14 14:30 | disposition home or self-care (01) ==
LOC: MW.ED 17:28 → MW.MS 19:01
PROVIDERS: ADMIT Student in an Organized Health Care Education/Training Program; ATTEND Student in an Organized Health Care Education/Training Program
DX: R53.1 Weakness (principal); I16.0 Hypertensive urgency; R41.82 Altered mental status, unspecified; U07.1 COVID-19; F32.A Depression, unspecified; I25.10 Atherosclerotic heart disease of native coronary artery without angina pectoris; I48.91 Unspecified atrial fibrillation; I10 Essential (primary) hypertension; E78.00 Pure hypercholesterolemia, unspecified; K21.9 Gastro-esophageal reflux disease without esophagitis; J44.9 Chronic obstructive pulmonary disease, unspecified; F41.9 Anxiety disorder, unspecified; Z95.0 Presence of cardiac pacemaker; Z86.73 Personal history of transient ischemic attack (TIA), and cerebral infarction without residual deficits; Z87.891 Personal history of nicotine dependence; Z86.79 Personal history of other diseases of the circulatory system; Z88.5 Allergy status to narcotic agent; Z88.8 Allergy status to other drugs, medicaments and biological substances; Z79.899 Other long term (current) drug therapy
CPT/HCPCS: 36415; 70450; 70496; 70498; 71045; 73060; 80048; 80053; 80061; 83036; 83735; 84100; 84439; 84443; 84484; 85025; 85610; 85730; 93005; 93306; 96374; 96375; 97162; 97165; 99285; A9270; G0378; J0360; J3490; Q9967; U0002; J7620-GY

== ENCOUNTER 2022-05-26 13:39 | Emergency (ER) | payer MEDICARE, MEDICAID ==
[2022-05-26] MEDS ORDERED: fentaNYL 50 MCG/ML SDV IVPUSH ONE (13:56)
[2022-05-26 14:21] LABS: CARBON DIOXIDE,CO2 31.5 mmol/L (21.0-32.0); POTASSIUM,K 3.1 mmol/L (3.5-5.1)
[2022-05-26 14:45] VITALS: PULSE 76
[2022-05-26 14:52] LABS: CORONAVIRUS COVID-19 NAA NEGATIVE (NEGATIVE); INFLUENZA A NAA NEGATIVE (NEGATIVE); INFLUENZA B NAA NEGATIVE (NEGATIVE); RESPIRATORY SYNCYTIAL VIR NAA NEGATIVE (NEGATIVE)
[2022-05-26 16:27] VITALS: BP 118/69
== END 2022-05-26 16:36 | disposition home or self-care (01) ==
LOC: MW.ED 13:39
DX: M25.551 Pain in right hip (principal); I48.91 Unspecified atrial fibrillation; E78.00 Pure hypercholesterolemia, unspecified; I10 Essential (primary) hypertension; J44.9 Chronic obstructive pulmonary disease, unspecified; F17.210 Nicotine dependence, cigarettes, uncomplicated; E66.9 Obesity, unspecified; Z68.28 Body mass index [BMI] 28.0-28.9, adult; Z86.73 Personal history of transient ischemic attack (TIA), and cerebral infarction without residual deficits; Z95.0 Presence of cardiac pacemaker; Z88.5 Allergy status to narcotic agent; Z88.4 Allergy status to anesthetic agent; Z88.8 Allergy status to other drugs, medicaments and biological substances; Z79.01 Long term (current) use of anticoagulants; Z79.82 Long term (current) use of aspirin; Z79.899 Other long term (current) drug therapy; Z20.822 Contact with and (suspected) exposure to COVID-19; Z96.641 Presence of right artificial hip joint; W18.30XA Fall on same level, unspecified, initial encounter
CPT/HCPCS: 0241U; 36415; 70450; 71045; 71260; 72125; 72170; 73502; 74177; 80053; 82550; 85025; 96374; 99284; J3010

== ENCOUNTER 2022-09-04 17:16 | Observation (INO) | payer MEDICARE, MEDICAID ==
[2022-09-04] MEDS ORDERED: Sodium Chloride 0.9% 1,000 ML IV ONE (17:52)
[2022-09-04 18:12] LABS: CARBON DIOXIDE,CO2 28.1 mmol/L (21.0-32.0)
[2022-09-04 20:09] VITALS: PULSE 60
[2022-09-04 20:44] VITALS: BP 119/62
[2022-09-04] MEDS ORDERED: Levofloxacin 250 MG Tab ONE (21:47)
[2022-09-04] MEDS ORDERED: Levofloxacin 250 MG Tab PO SCH (22:00)
== END 2022-09-04 21:50 | disposition left against medical advice (07) ==
LOC: MW.ED 17:16 → MW.MS 19:11
PROVIDERS: ADMIT Internal Medicine; ATTEND Internal Medicine
DX: T42.4X1A Poisoning by benzodiazepines, accidental (unintentional), initial encounter (principal); T40.2X1A Poisoning by other opioids, accidental (unintentional), initial encounter; R53.1 Weakness; N30.00 Acute cystitis without hematuria; I25.10 Atherosclerotic heart disease of native coronary artery without angina pectoris; J44.9 Chronic obstructive pulmonary disease, unspecified; I48.91 Unspecified atrial fibrillation; E78.00 Pure hypercholesterolemia, unspecified; I10 Essential (primary) hypertension; K21.9 Gastro-esophageal reflux disease without esophagitis; F41.9 Anxiety disorder, unspecified; F32.A Depression, unspecified; F17.210 Nicotine dependence, cigarettes, uncomplicated; Z88.5 Allergy status to narcotic agent; Z88.8 Allergy status to other drugs, medicaments and biological substances; Z79.82 Long term (current) use of aspirin; Z79.899 Other long term (current) drug therapy; W05.0XXA Fall from non-moving wheelchair, initial encounter
CPT/HCPCS: 36415; 70450; 71045; 80048; 81001; 83605; 84484; 85025; 87086; 93005; A9270; G0378; J7030; 96360; 99285-25

== ENCOUNTER 2022-09-23 14:00 | Emergency (ER) | payer MEDICARE, MEDICAID ==
[2022-09-23] MEDS ORDERED: Acetaminophen 500 MG Tab PO STA (14:28)
[2022-09-23 15:16] VITALS: BP 103/60; PULSE 73
== END 2022-09-23 15:20 | disposition home or self-care (01) ==
LOC: MW.ED 14:00
DX: M25.531 Pain in right wrist (principal); I48.91 Unspecified atrial fibrillation; I10 Essential (primary) hypertension; J44.9 Chronic obstructive pulmonary disease, unspecified; K21.9 Gastro-esophageal reflux disease without esophagitis; M19.90 Unspecified osteoarthritis, unspecified site; E66.9 Obesity, unspecified; Z68.23 Body mass index [BMI] 23.0-23.9, adult; Z88.5 Allergy status to narcotic agent; Z88.4 Allergy status to anesthetic agent; Z88.8 Allergy status to other drugs, medicaments and biological substances; Z79.899 Other long term (current) drug therapy; Z79.82 Long term (current) use of aspirin; Z79.01 Long term (current) use of anticoagulants
CPT/HCPCS: 73110; 99284; A9270; 99283

== ENCOUNTER 2022-09-24 18:05 | Inpatient (IN) | payer MEDICARE, MEDICAID ==
[2022-09-24] MEDS ORDERED: Sodium Chloride 0.9% 2.5 ML Syringe FLUSH PRN (18:07)
[2022-09-24] MEDS ORDERED: Sodium Chloride 0.9% 10 ML Syringe FLUSH PRN (18:07)
[2022-09-24] MEDS ORDERED: Naloxone 0.4 MG/ML SDV IVPUSH ONE ×2 (18:10→20:05)
[2022-09-24] MEDS ORDERED: Ondansetron 4 MG/2 ML SDV IVPUSH ONE (18:28)
[2022-09-24 18:45] LABS: APPEARANCE,URINE CLEAR; BILIRUBIN,URINE NEGATIVE (NEGATIVE); COLOR,URINE YELLOW; GLUCOSE,URINE NEGATIVE (NEGATIVE); KETONES,URINE NEGATIVE (NEGATIVE); LEUKOCYTE ESTERASE,URINE NEGATIVE (NEGATIVE); NITRITE,URINE NEGATIVE (NEGATIVE); OCCULT BLOOD,URINE NEGATIVE (NEGATIVE); PROTEIN,URINE NEGATIVE (NEGATIVE); UROBILINOGEN,URINE 0.2 EU/dL (<2.0)
[2022-09-24 18:50] LABS: BASOPHILS PERCENT AUTO 0.1 % (0.0-1.5); HEMATOCRIT 36.8 % (36.0-46.0); HEMOGLOBIN 12.3 g/dL (12.0-16.0); LYMPHOCYTES ABSOLUTE AUTO 2.3 K/uL (0.6-2.4); LYMPHOCYTES PERCENT AUTO 9.1 % (16.0-40.0); MEAN CORPUSCULAR HEMOGLOBIN 30.4 pg (27.0-32.0); MEAN CORPUSCULAR HGB CONC 33.4 g/dL (31.0-37.0); MEAN CORPUSCULAR VOLUME 91.1 fL (80.0-98.0); MONOCYTES ABSOLUTE AUTO 1.7 K/uL (0.0-0.8); MONOCYTES PERCENT AUTO 6.8 % (0.0-15.0); NEUTROPHILS ABSOLUTE AUTO 21.1 K/uL (1.4-5.7); PLATELET COUNT,PLT 274 K/uL (150-400); RED BLOOD CELL COUNT 4.04 M/uL (4.30-5.90); WHITE BLOOD CELL COUNT,WBC 25.05 K/uL (4.0-11.0)
[2022-09-24 19:04] LABS: AMORPHOUS SEDIMENT,URINE LIGHT (NEGATIVE); BACTERIA,URINE FEW (NEGATIVE); EPITHELIAL CELLS,URINE NONE SEEN (NONE-FEW); RBC,URINE 0-1 (0-2/HPF); WBC,URINE 0-2 (0-5/HPF)
[2022-09-24] MEDS ORDERED: Sodium Chloride 0.9% 1,000 ML IV ONE ×2 (19:13→20:29)
[2022-09-24 19:18] LABS: A/G RATIO 0.7 (0.9-1.6); ALBUMIN 2.3 g/dL (3.4-5.0); BILIRUBIN TOTAL 0.3 mg/dL (0.2-1.0); CARBON DIOXIDE,CO2 26.3 mmol/L (21.0-32.0); CREATININE 2.7 mg/dL (0.6-1.0); EST CRCL DRUG DOSING (CG) 18.58 mL/min; MAGNESIUM 1.8 mg/dL (1.8-2.4); POTASSIUM,K 2.8 mmol/L (3.5-5.1); PROTEIN TOTAL,TP 5.6 g/dL (6.4-8.2)
[2022-09-24 19:19] LABS: LACTIC ACID 2.9 mmol/L (0.4-2.0)
[2022-09-24] MEDS ORDERED: Cefepime 2 GM in Sodium Chloride 0.9% 50 ML IV ONE (19:30)
[2022-09-24 19:48] LABS: AMPHETAMINES SCREEN, URINE NEGATIVE (CUTOFF=500); BARBITURATE SCREEN,URINE NEGATIVE (CUTOFF=200); BENZODIAZEPINES SCREEN,URINE PRESUMPTIVE POSITIVE (CUTOFF=150); BUPRENORPHINE SCREEN,URINE NEGATIVE (CUTOFF=10); METHADONE SCREEN, URINE NEGATIVE (CUTOFF=200); METHAMPHETAMINES SCREEN, URINE NEGATIVE (CUTOFF=500); OXYCODONE SCREEN,URINE NEGATIVE (CUT0FF=100); PCP SCREEN,URINE NEGATIVE (CUTOFF=25); PROPOXYPHENE SCREEN,URINE NEGATIVE (CUTOFF=300); THC SCREEN,URINE 20 NG/ML NEGATIVE (CUTOFF=50)
[2022-09-24] MEDS ORDERED: Potassium Chloride 20 MEQ in Premix Bag 1 BAG IV ONE (20:30)
[2022-09-24 20:36] LABS: BASE EXCESS VENOUS 0.6 (-2.0-3.0); BICARBONATE,VENOUS 27 mEq/L (23-28); PCO2 VENOUS 52 mmHG (41-51); PH,VENOUS 7.33 (7.31-7.41)
[2022-09-24 20:40] LABS: PO2 VENOUS < 30 mmHG
[2022-09-24] MEDS ORDERED: Sodium Chloride 0.9% 1,000 ML IV STA (21:21)
[2022-09-24] MEDS ORDERED: metroNIDAZOLE/Normal Saline 500 MG in Premix Bag 1 BAG IV ONE (21:21)
[2022-09-24 21:44] LABS: CORONAVIRUS COVID-19 NAA NEGATIVE (NEGATIVE); INFLUENZA A NAA NEGATIVE (NEGATIVE); INFLUENZA B NAA NEGATIVE (NEGATIVE)
[2022-09-24] MEDS ORDERED: Norepinephrine Bit/D5W Premix 250 ML IV SCH (22:00)
[2022-09-25 02:15] LABS: BASE EXCESS VENOUS -2.1 (-2.0-3.0); PH,VENOUS 7.33 (7.31-7.41)
[2022-09-25] MEDS: Sodium Chloride 0.9% 1,000 ML IV SCH ×3 (02:33→16:44)
[2022-09-25] MEDS ORDERED: Cefepime 2 GM Vial IVPUSH ONE (02:45)
[2022-09-25] MEDS ORDERED: metroNIDAZOLE/Normal Saline 500 MG in Premix Bag 1 BAG IV SCH (06:00)
[2022-09-25] MEDS ORDERED: Cefepime 2 GM in Sodium Chloride 0.9% 50 ML IV ONE (06:00)
[2022-09-25] MEDS ORDERED: Ondansetron 4 MG/2 ML SDV IVPUSH PRN (07:58)
[2022-09-25] MEDS ORDERED: Albuterol/Ipratropium 3.0-0.5 MG/3 ML Neb Soln NEB PRN (07:58)
[2022-09-25] MEDS ORDERED: Sodium Chloride 0.9% 10 ML Syringe FLUSH PRN (07:58)
[2022-09-25] MEDS ORDERED: Sodium Chloride 0.9% 2.5 ML Syringe FLUSH PRN (07:58)
[2022-09-25] MEDS ORDERED: Norepinephrine Bit/D5W Premix 250 ML IV SCH (08:15)
[2022-09-25 08:21] LABS: BASOPHILS PERCENT AUTO 0.1 % (0.0-1.5); EOSINOPHILS PERCENT AUTO 0.1 % (0.0-7.0); HEMATOCRIT 33.3 % (36.0-46.0); LYMPHOCYTES ABSOLUTE AUTO 1.3 K/uL (0.6-2.4); LYMPHOCYTES PERCENT AUTO 6.9 % (16.0-40.0); MEAN CORPUSCULAR HEMOGLOBIN 30.3 pg (27.0-32.0); MEAN CORPUSCULAR VOLUME 91.7 fL (80.0-98.0); MONOCYTES PERCENT AUTO 5.2 % (0.0-15.0); NEUTROPHILS ABSOLUTE AUTO 16.5 K/uL (1.4-5.7); NEUTROPHILS PERCENT AUTO 87.7 % (48.0-80.0); PLATELET COUNT,PLT 250 K/uL (150-400); RED BLOOD CELL COUNT 3.63 M/uL (4.30-5.90); WHITE BLOOD CELL COUNT,WBC 18.83 K/uL (4.0-11.0)
[2022-09-25] MEDS: Pantoprazole 40 MG in Sodium Chloride 0.9% 10 ML IVPUSH SCH (08:32)
[2022-09-25 08:54] LABS: BILIRUBIN TOTAL 0.4 mg/dL (0.2-1.0); CALCIUM 7.4 mg/dL (8.5-10.1); CARBON DIOXIDE,CO2 24.4 mmol/L (21.0-32.0); CREATININE 1.6 mg/dL (0.6-1.0); EST CRCL DRUG DOSING (CG) 31.36 mL/min; MAGNESIUM 1.6 mg/dL (1.8-2.4); PHOSPHORUS 2.9 mg/dL (2.6-4.7); POTASSIUM,K 2.5 mmol/L (3.5-5.1); PROTEIN TOTAL,TP 5.1 g/dL (6.4-8.2)
[2022-09-25 09:00] LABS: A/G RATIO 0.7 (0.9-1.6)
[2022-09-25] MEDS ORDERED: Magnesium Sulfate/Water 2 GM in Premix Bag 1 BAG IV ONE (09:02)
[2022-09-25] MEDS ORDERED: Potassium Chloride 20 MEQ in Premix Bag 3 BAG IV ONE (09:02)
[2022-09-25] MEDS: Potassium Chloride 20 MEQ in Premix Bag 1 BAG IV SCH ×3 (09:55→14:05)
[2022-09-25] MEDS ORDERED: Cefepime 2 GM Vial IVPUSH SCH (14:00)
[2022-09-25] MEDS: metroNIDAZOLE/Normal Saline 500 MG in Premix Bag 1 BAG IV SCH ×2 (14:34→22:08)
[2022-09-25 15:10] LABS: CALCIUM 7.6 mg/dL (8.5-10.1); CARBON DIOXIDE,CO2 24.3 mmol/L (21.0-32.0); CREATININE 1.2 mg/dL (0.6-1.0); EST CRCL DRUG DOSING (CG) 41.81 mL/min; POTASSIUM,K 3.3 mmol/L (3.5-5.1)
[2022-09-25] MEDS ORDERED: Potassium Chloride 20 MEQ Tab.ER PO ONE (17:00)
[2022-09-25] MEDS: Apixaban 5 MG Tab PO SCH (20:12)
[2022-09-25] MEDS ORDERED: Acetaminophen/HYDROcodone 325-10 MG Tab PO PRN (21:01)
[2022-09-26] MEDS: Sodium Chloride 0.9% 1,000 ML IV SCH ×2 (01:23→11:02)
[2022-09-26 06:02] LABS: BASOPHILS PERCENT AUTO 0.1 % (0.0-1.5); EOSINOPHILS ABSOLUTE AUTO 0.1 K/uL (0.0-0.7); EOSINOPHILS PERCENT AUTO 0.4 % (0.0-7.0); HEMATOCRIT 30.1 % (36.0-46.0); HEMOGLOBIN 9.7 g/dL (12.0-16.0); LYMPHOCYTES ABSOLUTE AUTO 1.8 K/uL (0.6-2.4); LYMPHOCYTES PERCENT AUTO 11.4 % (16.0-40.0); MEAN CORPUSCULAR HEMOGLOBIN 29.3 pg (27.0-32.0); MEAN CORPUSCULAR HGB CONC 32.2 g/dL (31.0-37.0); MEAN CORPUSCULAR VOLUME 90.9 fL (80.0-98.0); MONOCYTES ABSOLUTE AUTO 0.8 K/uL (0.0-0.8); MONOCYTES PERCENT AUTO 4.9 % (0.0-15.0); NEUTROPHILS ABSOLUTE AUTO 12.9 K/uL (1.4-5.7); NEUTROPHILS PERCENT AUTO 83.2 % (48.0-80.0); NRBC ABSOLUTE 0 K/uL; PLATELET COUNT,PLT 225 K/uL (150-400); RED BLOOD CELL COUNT 3.31 M/uL (4.30-5.90); WHITE BLOOD CELL COUNT,WBC 15.46 K/uL (4.0-11.0)
[2022-09-26 06:04] LABS: CALCIUM 7.6 mg/dL (8.5-10.1); CARBON DIOXIDE,CO2 24.8 mmol/L (21.0-32.0); EST CRCL DRUG DOSING (CG) 50.18 mL/min; MAGNESIUM 1.8 mg/dL (1.8-2.4); POTASSIUM,K 3.3 mmol/L (3.5-5.1)
[2022-09-26] MEDS ORDERED: Cefepime 1 GM in Sodium Chloride 0.9% 50 ML IV SCH (06:30)
[2022-09-26] MEDS: metroNIDAZOLE/Normal Saline 500 MG in Premix Bag 1 BAG IV SCH ×3 (06:32→22:05)
[2022-09-26] MEDS ORDERED: Potassium Chloride 20 MEQ Tab.ER PO ONE (08:08)
[2022-09-26] MEDS: DULoxetine 60 MG Cap PO SCH (08:46)
[2022-09-26] MEDS: Apixaban 5 MG Tab PO SCH ×2 (08:46→20:57)
[2022-09-26] MEDS: Escitalopram 10 MG Tab PO SCH (08:46)
[2022-09-26] MEDS: Pantoprazole 40 MG in Sodium Chloride 0.9% 10 ML IVPUSH SCH (08:47)
[2022-09-26] MEDS ORDERED: LORazepam 1 MG Tab PO PRN ×2 (11:05→16:00)
[2022-09-26] MEDS ORDERED: Acetaminophen/HYDROcodone 325-5 MG Tab PO PRN (11:06)
[2022-09-26] MEDS: Cefepime 1 GM in Sodium Chloride 0.9% 50 ML IV SCH ×2 (13:44→21:05)
[2022-09-27] MEDS ORDERED: hydrALAZINE 25 MG Tab PO ONE (05:02)
[2022-09-27] MEDS: Cefepime 1 GM in Sodium Chloride 0.9% 50 ML IV SCH (05:27)
[2022-09-27] MEDS: metroNIDAZOLE/Normal Saline 500 MG in Premix Bag 1 BAG IV SCH (06:04)
[2022-09-27 06:20] LABS: BASOPHILS PERCENT AUTO 0.1 % (0.0-1.5); EOSINOPHILS PERCENT AUTO 0.1 % (0.0-7.0); HEMOGLOBIN 10.5 g/dL (12.0-16.0); LYMPHOCYTES ABSOLUTE AUTO 1.9 K/uL (0.6-2.4); LYMPHOCYTES PERCENT AUTO 14.1 % (16.0-40.0); MEAN CORPUSCULAR HEMOGLOBIN 29.3 pg (27.0-32.0); MEAN CORPUSCULAR HGB CONC 32.8 g/dL (31.0-37.0); MEAN CORPUSCULAR VOLUME 89.4 fL (80.0-98.0); MONOCYTES ABSOLUTE AUTO 0.7 K/uL (0.0-0.8); MONOCYTES PERCENT AUTO 5.1 % (0.0-15.0); NEUTROPHILS ABSOLUTE AUTO 10.8 K/uL (1.4-5.7); NEUTROPHILS PERCENT AUTO 80.6 % (48.0-80.0); NRBC ABSOLUTE 0 K/uL; PLATELET COUNT,PLT 260 K/uL (150-400); RED BLOOD CELL COUNT 3.58 M/uL (4.30-5.90); WHITE BLOOD CELL COUNT,WBC 13.36 K/uL (4.0-11.0)
[2022-09-27 06:39] LABS: CALCIUM 7.9 mg/dL (8.5-10.1); CARBON DIOXIDE,CO2 25.3 mmol/L (21.0-32.0); CREATININE 0.7 mg/dL (0.6-1.0); EST CRCL DRUG DOSING (CG) 71.68 mL/min; MAGNESIUM 1.3 mg/dL (1.8-2.4); POTASSIUM,K 3.1 mmol/L (3.5-5.1)
[2022-09-27] MEDS ORDERED: Magnesium Sulfate/Water 4 GM in Premix Bag 1 BAG IV ONE (08:05)
[2022-09-27] MEDS ORDERED: Potassium Chloride 20 MEQ Tab.ER PO ONE (08:05)
[2022-09-27] MEDS ORDERED: Sodium Chloride 0.9% 500 ML IV ONE (08:30)
[2022-09-27] MEDS ORDERED: Diltiazem 180 MG Cap.CD PO SCH (09:00)
[2022-09-27] MEDS: Apixaban 5 MG Tab PO SCH (09:05)
[2022-09-27] MEDS: Pantoprazole 40 MG in Sodium Chloride 0.9% 10 ML IVPUSH SCH (09:05)
[2022-09-27] MEDS: Escitalopram 10 MG Tab PO SCH (09:05)
[2022-09-27] MEDS: DULoxetine 60 MG Cap PO SCH (09:05)
[2022-09-27] MEDS: Potassium Chloride 20 MEQ in Premix Bag 1 BAG IV SCH ×2 (09:06→10:58)
[2022-09-27 11:44] VITALS: BP 178/83; PULSE 84
[2022-09-27] MEDS ORDERED: hydrALAZINE 25 MG Tab PO SCH (12:00)
== END 2022-09-27 15:00 | disposition home or self-care (01) | DRG 871 ==
LOC: MW.ED 18:05 → OBSVTOIN 09-25 00:13 → MW.ICU 09-25 00:13 → MW.MS 09-26 14:36
PROVIDERS: ADMIT Internal Medicine; ATTEND Internal Medicine
DX: A41.9 Sepsis, unspecified organism (principal); R65.21 Severe sepsis with septic shock; I48.19 Other persistent atrial fibrillation; N17.9 Acute kidney failure, unspecified; J84.10 Pulmonary fibrosis, unspecified; R65.20 Severe sepsis without septic shock; K52.9 Noninfective gastroenteritis and colitis, unspecified; I25.10 Atherosclerotic heart disease of native coronary artery without angina pectoris; J44.9 Chronic obstructive pulmonary disease, unspecified; E86.0 Dehydration; K21.9 Gastro-esophageal reflux disease without esophagitis; E87.6 Hypokalemia; M81.0 Age-related osteoporosis without current pathological fracture; M19.90 Unspecified osteoarthritis, unspecified site; F31.9 Bipolar disorder, unspecified; F41.9 Anxiety disorder, unspecified; E66.9 Obesity, unspecified; Z98.890 Other specified postprocedural states; Z98.49 Cataract extraction status, unspecified eye; Z90.49 Acquired absence of other specified parts of digestive tract; Z96.649 Presence of unspecified artificial hip joint; Z96.659 Presence of unspecified artificial knee joint; G89.29 Other chronic pain; I10 Essential (primary) hypertension; E78.5 Hyperlipidemia, unspecified; E83.42 Hypomagnesemia; I49.5 Sick sinus syndrome; Z95.0 Presence of cardiac pacemaker; Z79.899 Other long term (current) drug therapy; Z86.73 Personal history of transient ischemic attack (TIA), and cerebral infarction without residual deficits; Z99.3 Dependence on wheelchair; Z79.82 Long term (current) use of aspirin; Z88.5 Allergy status to narcotic agent; Z88.8 Allergy status to other drugs, medicaments and biological substances
CPT/HCPCS: 0240U; 36415; 36556; 51702; 71045; 71045-26; 73502-26-RT; 73502-RT; 74176; 74176-26; 80048; 80053; 80305-QW; 80307; 81001; 82140; 82803; 83605; 83735; 84100; 84484; 85025; 87040; 93005; 93010; 96361; 96365; 96366; 96367; 96368; 96375; 96376; 99232; 99238; 99285-25; 99291; A9270-GY; C9113; G0378; J0692; J2310; J2405; J3475; J3480; J3490; J7030; J7040

== ENCOUNTER 2022-10-02 19:24 | Inpatient (IN) | payer MEDICARE, MEDICAID ==
[2022-10-02] MEDS ORDERED: Sodium Chloride 0.9% 20 ML SDV IV PRN (19:30)
[2022-10-02] MEDS ORDERED: Sodium Chloride 0.9% 2,000 ML IV ONE (19:30)
[2022-10-02] MEDS ORDERED: Sodium Chloride 0.9% 2.5 ML Syringe FLUSH PRN (19:30)
[2022-10-02] MEDS ORDERED: fentaNYL 100 MCG/2 ML SDV ONE (19:46)
[2022-10-02 19:50] LABS: APPEARANCE,URINE CLEAR; BILIRUBIN,URINE NEGATIVE (NEGATIVE); COLOR,URINE YELLOW; GLUCOSE,URINE NEGATIVE (NEGATIVE); KETONES,URINE NEGATIVE (NEGATIVE); LEUKOCYTE ESTERASE,URINE NEGATIVE (NEGATIVE); NITRITE,URINE NEGATIVE (NEGATIVE); OCCULT BLOOD,URINE NEGATIVE (NEGATIVE); PROTEIN,URINE NEGATIVE (NEGATIVE); UROBILINOGEN,URINE 0.2 EU/dL (<2.0)
[2022-10-02 19:59] LABS: BASOPHILS PERCENT AUTO 0.3 % (0.0-1.5); EOSINOPHILS ABSOLUTE AUTO 0.1 K/uL (0.0-0.7); EOSINOPHILS PERCENT AUTO 0.8 % (0.0-7.0); HEMATOCRIT 34.1 % (36.0-46.0); HEMOGLOBIN 10.9 g/dL (12.0-16.0); LYMPHOCYTES ABSOLUTE AUTO 3.1 K/uL (0.6-2.4); MEAN CORPUSCULAR HEMOGLOBIN 29.5 pg (27.0-32.0); MEAN CORPUSCULAR VOLUME 92.4 fL (80.0-98.0); MONOCYTES ABSOLUTE AUTO 0.7 K/uL (0.0-0.8); MONOCYTES PERCENT AUTO 5.8 % (0.0-15.0); NEUTROPHILS ABSOLUTE AUTO 7.9 K/uL (1.4-5.7); NEUTROPHILS PERCENT AUTO 67.1 % (48.0-80.0); NRBC ABSOLUTE 0 K/uL; PLATELET COUNT,PLT 292 K/uL (150-400); RED BLOOD CELL COUNT 3.69 M/uL (4.30-5.90); WHITE BLOOD CELL COUNT,WBC 11.78 K/uL (4.0-11.0)
[2022-10-02 20:02] LABS: BASE EXCESS VENOUS 3.3 (-2.0-3.0); PH,VENOUS 7.37 (7.31-7.41)
[2022-10-02 20:06] LABS: INR 1.04 (0.86-1.11)
[2022-10-02 20:09] LABS: AMPHETAMINES SCREEN, URINE NEGATIVE (CUTOFF=500); BARBITURATE SCREEN,URINE NEGATIVE (CUTOFF=200); BENZODIAZEPINES SCREEN,URINE PRESUMPTIVE POSITIVE (CUTOFF=150); BUPRENORPHINE SCREEN,URINE NEGATIVE (CUTOFF=10); METHADONE SCREEN, URINE NEGATIVE (CUTOFF=200); METHAMPHETAMINES SCREEN, URINE NEGATIVE (CUTOFF=500); OXYCODONE SCREEN,URINE NEGATIVE (CUT0FF=100); PCP SCREEN,URINE NEGATIVE (CUTOFF=25); PROPOXYPHENE SCREEN,URINE NEGATIVE (CUTOFF=300); THC SCREEN,URINE 20 NG/ML NEGATIVE (CUTOFF=50)
[2022-10-02] MEDS ORDERED: Iopamidol 755 MG/ML 500 ML Multipack Bottle IVPUSH STA (20:12)
[2022-10-02] MEDS ORDERED: fentaNYL 100 MCG/2 ML SDV IVPUSH ONE ×2 (20:14→21:05)
[2022-10-02] MEDS: Sodium Chloride 0.9% 10 ML Syringe FLUSH PRN ×2 (20:14→20:16)
[2022-10-02 20:17] LABS: A/G RATIO 0.7 (0.9-1.6); ALANINE AMINOTRANSFERASE,ALT 39 IU/L (14-63); ALBUMIN 2.4 g/dL (3.4-5.0); ALKALINE PHOSPHATASE 95 U/L (46-116); ASPARTATE AMNIOTRANSFERASE,AST 48 IU/L (15-37); BILIRUBIN TOTAL 0.2 mg/dL (0.2-1.0); BLOOD UREA NITROGEN,BUN 24 mg/dL (7.0-18.0); CALCIUM 8.2 mg/dL (8.5-10.1); CHLORIDE,CL 104 mmol/L (98-107); CREATININE 1.9 mg/dL (0.6-1.0); EST CRCL DRUG DOSING (CG) 25.42 mL/min; ESTIMATED GFR 28 mL/min (>60); ETHANOL BLOOD MEDICAL <3 mg/dL; GLUCOSE RANDOM 96 mg/dL (74-106); POTASSIUM,K 3.4 mmol/L (3.5-5.1); PROTEIN TOTAL,TP 5.8 g/dL (6.4-8.2); SODIUM,NA 141 mmol/L (136-145)
[2022-10-02 20:27] LABS: BACTERIA,URINE RARE (NEGATIVE); EPITHELIAL CELLS,URINE RARE (NONE-FEW); RBC,URINE 0-1 (0-2/HPF); WBC,URINE 0-1 (0-5/HPF)
[2022-10-02] MEDS ORDERED: LORazepam 2 MG/ML SDV IVPUSH ONE (21:10)
[2022-10-02] MEDS ORDERED: Cefepime 1 GM in Sodium Chloride 0.9% 50 ML IV ONE (21:45)
[2022-10-02] MEDS ORDERED: VANCOmycin 1.5 GM/300 ML 1.5 GM in Premix Bag 1 BAG IV ONE (22:00)
[2022-10-02] MEDS ORDERED: Naloxone 0.4 MG/ML SDV IVPUSH ONE (23:09)
[2022-10-02] MEDS ORDERED: Naloxone 0.4 MG/ML SDV ONE (23:09)
[2022-10-02] MEDS ORDERED: Acetaminophen 325 MG Tab PO PRN (23:56)
[2022-10-02] MEDS ORDERED: HYDROmorphone 2 MG/ML Syringe IVPUSH PRN (23:56)
[2022-10-02] MEDS ORDERED: LORazepam 2 MG/ML SDV IM PRN (23:56)
[2022-10-02] MEDS ORDERED: Albuterol/Ipratropium 3.0-0.5 MG/3 ML Neb Soln NEB PRN (23:56)
[2022-10-02] MEDS ORDERED: oxyCODONE 5 MG Tab PO PRN (23:56)
[2022-10-03 00:26] LABS: PERCENT FE SATURATION 11.4 % (20-55)
[2022-10-03] MEDS: NS + KCl 20mEq/L 1,000 ML IV SCH ×2 (00:55→07:43)
[2022-10-03 05:49] LABS: BASOPHILS PERCENT AUTO 0.4 % (0.0-1.5); EOSINOPHILS ABSOLUTE AUTO 0.1 K/uL (0.0-0.7); EOSINOPHILS PERCENT AUTO 1.2 % (0.0-7.0); HEMATOCRIT 35.5 % (36.0-46.0); HEMOGLOBIN 11.5 g/dL (12.0-16.0); LYMPHOCYTES ABSOLUTE AUTO 2.1 K/uL (0.6-2.4); LYMPHOCYTES PERCENT AUTO 19.3 % (16.0-40.0); MEAN CORPUSCULAR HEMOGLOBIN 29.9 pg (27.0-32.0); MEAN CORPUSCULAR HGB CONC 32.4 g/dL (31.0-37.0); MEAN CORPUSCULAR VOLUME 92.4 fL (80.0-98.0); MONOCYTES ABSOLUTE AUTO 0.7 K/uL (0.0-0.8); MONOCYTES PERCENT AUTO 6.7 % (0.0-15.0); NEUTROPHILS ABSOLUTE AUTO 7.8 K/uL (1.4-5.7); NEUTROPHILS PERCENT AUTO 72.4 % (48.0-80.0); NRBC ABSOLUTE 0 K/uL; PLATELET COUNT,PLT 268 K/uL (150-400); RED BLOOD CELL COUNT 3.84 M/uL (4.30-5.90); WHITE BLOOD CELL COUNT,WBC 10.82 K/uL (4.0-11.0)
[2022-10-03 06:21] LABS: A/G RATIO 0.7 (0.9-1.6); ALBUMIN 2.2 g/dL (3.4-5.0); BILIRUBIN TOTAL 0.4 mg/dL (0.2-1.0); CARBON DIOXIDE,CO2 29.4 mmol/L (21.0-32.0); CREATININE 1.2 mg/dL (0.6-1.0); EST CRCL DRUG DOSING (CG) 40.25 mL/min; MAGNESIUM 1.6 mg/dL (1.8-2.4); POTASSIUM,K 3.4 mmol/L (3.5-5.1); PROTEIN TOTAL,TP 5.4 g/dL (6.4-8.2)
[2022-10-03] MEDS: Pantoprazole 40 MG Tab.CR PO SCH ×2 (06:22→06:40)
[2022-10-03] MEDS ORDERED: Potassium Chloride 20 MEQ Tab.ER PO ONE (07:11)
[2022-10-03] MEDS ORDERED: Magnesium Sulfate (4.06 MEQ/ML) 5 GM/10 ML SDV IV ONE (07:15)
[2022-10-03] MEDS ORDERED: Magnesium Sulfate/Water 2 GM in Premix Bag 1 BAG IV ONE (07:30)
[2022-10-03] MEDS ORDERED: Gabapentin 300 MG Cap PO SCH (07:30)
[2022-10-03] MEDS ORDERED: DULoxetine 60 MG Cap PO SCH (09:00)
[2022-10-03] MEDS ORDERED: Folic Acid 1 MG Tab PO SCH (09:00)
[2022-10-03] MEDS ORDERED: Polyethylene Glycol 3350 Powder 17 GM Packet PO SCH (09:00)
[2022-10-03] MEDS ORDERED: Bisacodyl 5 MG Tab PO SCH (09:00)
[2022-10-03 13:44] VITALS: BP 92/46; PULSE 63
[2022-10-03] MEDS ORDERED: atorvaSTATin 40 MG Tab PO SCH (21:00)
== END 2022-10-03 13:59 | disposition home or self-care (01) | DRG 194 ==
LOC: MW.ED 19:24 → MW.MS 21:52
PROVIDERS: ADMIT Internal Medicine; ATTEND Internal Medicine
DX: J18.9 Pneumonia, unspecified organism (principal); F11.20 Opioid dependence, uncomplicated; J44.0 Chronic obstructive pulmonary disease with (acute) lower respiratory infection; I48.19 Other persistent atrial fibrillation; N17.9 Acute kidney failure, unspecified; E86.0 Dehydration; E78.00 Pure hypercholesterolemia, unspecified; I10 Essential (primary) hypertension; G47.30 Sleep apnea, unspecified; K21.9 Gastro-esophageal reflux disease without esophagitis; M19.90 Unspecified osteoarthritis, unspecified site; D64.9 Anemia, unspecified; E87.6 Hypokalemia; Z96.641 Presence of right artificial hip joint; G62.9 Polyneuropathy, unspecified; G89.29 Other chronic pain; E66.9 Obesity, unspecified; E78.5 Hyperlipidemia, unspecified; K59.03 Drug induced constipation; F41.9 Anxiety disorder, unspecified; F31.9 Bipolar disorder, unspecified; T40.2X5A Adverse effect of other opioids, initial encounter; E83.42 Hypomagnesemia; M81.0 Age-related osteoporosis without current pathological fracture; Z96.659 Presence of unspecified artificial knee joint; W18.30XA Fall on same level, unspecified, initial encounter; Z88.5 Allergy status to narcotic agent; Z88.8 Allergy status to other drugs, medicaments and biological substances; Z79.82 Long term (current) use of aspirin; Z79.899 Other long term (current) drug therapy; Z79.51 Long term (current) use of inhaled steroids; Z95.0 Presence of cardiac pacemaker; Y92.098 Other place in other non-institutional residence as the place of occurrence of the external cause; Z79.01 Long term (current) use of anticoagulants; Z86.73 Personal history of transient ischemic attack (TIA), and cerebral infarction without residual deficits; Z98.890 Other specified postprocedural states; Z90.49 Acquired absence of other specified parts of digestive tract; Z98.49 Cataract extraction status, unspecified eye; Z99.3 Dependence on wheelchair; Z68.26 Body mass index [BMI] 26.0-26.9, adult
CPT/HCPCS: 36415; 36430; 70450; 70450-26; 71045; 71045-26; 71260; 71260-26; 72125; 72125-26; 72170; 72170-26; 74177; 74177-26; 80053; 80305-QW; 80307; 81001; 82803; 83550; 83605; 83735; 85025; 85610; 86850; 86900; 86901; 86920; 87040; 93005; 93010; 96361; 96365; 96368; 96375; 96376; 97110-GP; 97161-GP; 99285-25; 99291; A9270-GY; G0390; J0692; J1170; J2060; J2310; J3010; J3370; J3475; J3480; J3490; J7030; P9016; Q9967

== ENCOUNTER 2022-10-25 17:32 | Observation (INO) | payer MEDICARE, MEDICAID ==
[2022-10-25] MEDS ORDERED: Sodium Chloride 0.9% 1,000 ML IV ONE (17:39)
[2022-10-25 18:08] LABS: BASOPHILS PERCENT AUTO 0.3 % (0.0-1.5); EOSINOPHILS ABSOLUTE AUTO 0.1 K/uL (0.0-0.7); EOSINOPHILS PERCENT AUTO 1.1 % (0.0-7.0); HEMATOCRIT 38.4 % (36.0-46.0); HEMOGLOBIN 12.5 g/dL (12.0-16.0); LYMPHOCYTES PERCENT AUTO 25.3 % (16.0-40.0); MEAN CORPUSCULAR HEMOGLOBIN 29.6 pg (27.0-32.0); MEAN CORPUSCULAR HGB CONC 32.6 g/dL (31.0-37.0); MEAN CORPUSCULAR VOLUME 90.8 fL (80.0-98.0); MONOCYTES ABSOLUTE AUTO 0.9 K/uL (0.0-0.8); MONOCYTES PERCENT AUTO 7.4 % (0.0-15.0); NEUTROPHILS ABSOLUTE AUTO 7.8 K/uL (1.4-5.7); NEUTROPHILS PERCENT AUTO 65.9 % (48.0-80.0); NRBC ABSOLUTE 0 K/uL; PLATELET COUNT,PLT 237 K/uL (150-400); RED BLOOD CELL COUNT 4.23 M/uL (4.30-5.90)
[2022-10-25 18:48] LABS: A/G RATIO 0.8 (0.9-1.6); ALANINE AMINOTRANSFERASE,ALT 11 IU/L (14-63); ALKALINE PHOSPHATASE 122 U/L (46-116); ASPARTATE AMNIOTRANSFERASE,AST 10 IU/L (15-37); BILIRUBIN TOTAL 0.2 mg/dL (0.2-1.0); BLOOD UREA NITROGEN,BUN 24 mg/dL (7.0-18.0); CALCIUM 8.1 mg/dL (8.5-10.1); CHLORIDE,CL 102 mmol/L (98-107); CREATINE KINASE,CK 80 U/L (26-308); CREATININE 1.2 mg/dL (0.6-1.0); EST CRCL DRUG DOSING (CG) 43.38 mL/min; GLUCOSE RANDOM 100 mg/dL (74-106); PROTEIN TOTAL,TP 6.7 g/dL (6.4-8.2); SODIUM,NA 142 mmol/L (136-145)
[2022-10-25 19:02] LABS: ESTIMATED GFR 48 mL/min (>60); ETHANOL BLOOD MEDICAL < 3.0 mg/dL
[2022-10-25 19:03] LABS: POTASSIUM,K 2.4 mmol/L (3.5-5.1)
[2022-10-25] MEDS ORDERED: Sodium Chloride 0.9% 250 ML IV SCH (19:15)
[2022-10-25] MEDS: Potassium Chloride 100 ML IV SCH ×2 (19:16→22:10)
[2022-10-25] MEDS ORDERED: Albuterol/Ipratropium 4 GM Inhalation Spray INH PRN (22:31)
[2022-10-25] MEDS ORDERED: Promethazine 25 MG Tab PO PRN (22:38)
[2022-10-25] MEDS ORDERED: Acetaminophen 325 MG Tab PO PRN (22:38)
[2022-10-25] MEDS ORDERED: oxyCODONE 5 MG Tab PO PRN (22:38)
[2022-10-25] MEDS ORDERED: Promethazine 25 MG/ML SDV IM PRN (22:38)
[2022-10-25] MEDS ORDERED: Morphine 2 MG/ML SYRINGE IVPUSH PRN (22:38)
[2022-10-25] MEDS ORDERED: Potassium Chloride 100 ML IV SCH (22:45)
[2022-10-26] MEDS: Potassium Chloride 100 ML IV SCH ×3 (00:17→04:29)
[2022-10-26] MEDS ORDERED: Sodium Chloride 0.9% 250 ML IV ONE (00:30)
[2022-10-26 05:49] LABS: HEMATOCRIT 38.1 % (36.0-46.0); HEMOGLOBIN 12.5 g/dL (12.0-16.0); MEAN CORPUSCULAR HGB CONC 32.8 g/dL (31.0-37.0); MEAN CORPUSCULAR VOLUME 91.6 fL (80.0-98.0); MEAN PLATELET VOLUME 12.5 fL (7.40-12.00); RED BLOOD CELL COUNT 4.16 M/uL (4.30-5.90); WHITE BLOOD CELL COUNT,WBC 10.02 K/uL (4.0-11.0)
[2022-10-26 06:07] LABS: CALCIUM 8.2 mg/dL (8.5-10.1); CARBON DIOXIDE,CO2 29.6 mmol/L (21.0-32.0); CREATININE 0.9 mg/dL (0.6-1.0); EST CRCL DRUG DOSING (CG) 57.83 mL/min; MAGNESIUM 1.8 mg/dL (1.8-2.4); POTASSIUM,K 3.7 mmol/L (3.5-5.1)
[2022-10-26] MEDS ORDERED: Potassium Chloride 20 MEQ Tab.ER PO ONE (08:39)
[2022-10-26] MEDS ORDERED: Magnesium Sulfate/Water 2 GM in Premix Bag 1 BAG IV ONE (08:40)
[2022-10-26] MEDS ORDERED: DULoxetine 60 MG Cap PO SCH (09:00)
[2022-10-26] MEDS ORDERED: Diltiazem 120 MG Cap.CD PO SCH (09:00)
[2022-10-26] MEDS ORDERED: Aspirin 81 MG Tab.Chew PO SCH (09:00)
[2022-10-26] MEDS ORDERED: Acetaminophen/HYDROcodone 325-5 MG Tab PO PRN (10:07)
[2022-10-26 10:48] LABS: APPEARANCE,URINE SLT CLOUDY; BILIRUBIN,URINE NEGATIVE (NEGATIVE); COLOR,URINE YELLOW; GLUCOSE,URINE NEGATIVE (NEGATIVE); KETONES,URINE NEGATIVE (NEGATIVE); LEUKOCYTE ESTERASE,URINE NEGATIVE (NEGATIVE); NITRITE,URINE NEGATIVE (NEGATIVE); OCCULT BLOOD,URINE NEGATIVE (NEGATIVE); PROTEIN,URINE NEGATIVE (NEGATIVE); UROBILINOGEN,URINE 0.2 EU/dL (<2.0)
[2022-10-26 10:58] LABS: AMPHETAMINES SCREEN, URINE NEGATIVE (CUTOFF=500); BARBITURATE SCREEN,URINE NEGATIVE (CUTOFF=200); BENZODIAZEPINES SCREEN,URINE PRESUMPTIVE POSITIVE (CUTOFF=150); BUPRENORPHINE SCREEN,URINE NEGATIVE (CUTOFF=10); METHADONE SCREEN, URINE NEGATIVE (CUTOFF=200); METHAMPHETAMINES SCREEN, URINE NEGATIVE (CUTOFF=500); OXYCODONE SCREEN,URINE NEGATIVE (CUT0FF=100); PCP SCREEN,URINE NEGATIVE (CUTOFF=25); PROPOXYPHENE SCREEN,URINE NEGATIVE (CUTOFF=300); THC SCREEN,URINE 20 NG/ML NEGATIVE (CUTOFF=50)
[2022-10-26 13:14] VITALS: BP 111/59; PULSE 76
== END 2022-10-26 14:10 | disposition home or self-care (01) ==
LOC: MW.ED 17:32 → MW.MS 20:41
PROVIDERS: ADMIT Internal Medicine; ATTEND Internal Medicine
DX: E87.6 Hypokalemia (principal); R55 Syncope and collapse; I48.91 Unspecified atrial fibrillation; R41.82 Altered mental status, unspecified; I10 Essential (primary) hypertension; F41.9 Anxiety disorder, unspecified; F31.9 Bipolar disorder, unspecified; G47.33 Obstructive sleep apnea (adult) (pediatric); K21.9 Gastro-esophageal reflux disease without esophagitis; J44.9 Chronic obstructive pulmonary disease, unspecified; R29.6 Repeated falls; E66.9 Obesity, unspecified; F11.10 Opioid abuse, uncomplicated; E78.5 Hyperlipidemia, unspecified; Z86.73 Personal history of transient ischemic attack (TIA), and cerebral infarction without residual deficits; Z79.82 Long term (current) use of aspirin; Z88.5 Allergy status to narcotic agent; Z95.0 Presence of cardiac pacemaker; W19.XXXA Unspecified fall, initial encounter; Z79.01 Long term (current) use of anticoagulants; Z79.899 Other long term (current) drug therapy; J40 Bronchitis, not specified as acute or chronic; Z87.891 Personal history of nicotine dependence; Z88.4 Allergy status to anesthetic agent
CPT/HCPCS: 36415; 70450; 71045; 72125; 80048; 80053; 80305; 80307; 81003; 82550; 83735; 84133; 84484; 85025; 85027; 93005; A9270; J3475; J3480; J7030; J7050; 93010; 96365; 96366; 99221; 99239; 99283; 99285-25

== ENCOUNTER 2022-11-24 18:37 | Emergency (ER) | payer MEDICARE, MEDICAID ==
[2022-11-24] MEDS ORDERED: Sodium Chloride 0.9% 2.5 ML Syringe FLUSH PRN (18:41)
[2022-11-24] MEDS ORDERED: Sodium Chloride 0.9% 10 ML Syringe FLUSH PRN (18:41)
[2022-11-24 18:47] LABS: BASOPHILS PERCENT AUTO 0.3 % (0.0-1.5); EOSINOPHILS ABSOLUTE AUTO 0.1 K/uL (0.0-0.7); EOSINOPHILS PERCENT AUTO 1.5 % (0.0-7.0); HEMATOCRIT 36.1 % (36.0-46.0); HEMOGLOBIN 12.1 g/dL (12.0-16.0); LYMPHOCYTES ABSOLUTE AUTO 3.1 K/uL (0.6-2.4); LYMPHOCYTES PERCENT AUTO 33.2 % (16.0-40.0); MEAN CORPUSCULAR HEMOGLOBIN 31.2 pg (27.0-32.0); MEAN CORPUSCULAR HGB CONC 33.5 g/dL (31.0-37.0); MONOCYTES ABSOLUTE AUTO 0.8 K/uL (0.0-0.8); MONOCYTES PERCENT AUTO 8.5 % (0.0-15.0); NEUTROPHILS ABSOLUTE AUTO 5.3 K/uL (1.4-5.7); NEUTROPHILS PERCENT AUTO 56.5 % (48.0-80.0); PLATELET COUNT,PLT 234 K/uL (150-400); RED BLOOD CELL COUNT 3.88 M/uL (4.30-5.90); WHITE BLOOD CELL COUNT,WBC 9.39 K/uL (4.0-11.0)
[2022-11-24] MEDS ORDERED: Aspirin 81 MG Tab.Chew PO ONE (19:03)
[2022-11-24 19:21] LABS: A/G RATIO 0.9 (0.9-1.6); ALBUMIN 3.2 g/dL (3.4-5.0); BILIRUBIN TOTAL 0.3 mg/dL (0.2-1.0); CALCIUM 8.2 mg/dL (8.5-10.1); CARBON DIOXIDE,CO2 26.7 mmol/L (21.0-32.0); CREATININE 1.3 mg/dL (0.6-1.0); EST CRCL DRUG DOSING (CG) 34.27 mL/min; MAGNESIUM 1.6 mg/dL (1.8-2.4); PROTEIN TOTAL,TP 6.9 g/dL (6.4-8.2); TSH ULTRASENSITIVE 1.28 uIU/mL (0.36-3.74)
[2022-11-24] MEDS ORDERED: Potassium Chloride 20 MEQ Tab.ER PO ONE (19:41)
[2022-11-24] MEDS ORDERED: Sodium Chloride 0.9% 500 ML IV SCH (19:45)
[2022-11-24] MEDS ORDERED: Iopamidol 755 MG/ML 500 ML Multipack Bottle IVPUSH ONE (20:46)
[2022-11-24] MEDS ORDERED: Acetaminophen/HYDROcodone 325-5 MG Tab PO ONE (21:18)
[2022-11-24 23:01] VITALS: BP 126/70; PULSE 73
== END 2022-11-24 23:03 | disposition home or self-care (01) ==
LOC: MW.ED 18:37
DX: E87.6 Hypokalemia (principal); I48.91 Unspecified atrial fibrillation; I10 Essential (primary) hypertension; E78.00 Pure hypercholesterolemia, unspecified; J44.9 Chronic obstructive pulmonary disease, unspecified; K21.9 Gastro-esophageal reflux disease without esophagitis; M19.90 Unspecified osteoarthritis, unspecified site; E66.9 Obesity, unspecified; Z68.24 Body mass index [BMI] 24.0-24.9, adult; Z72.0 Tobacco use; Z88.5 Allergy status to narcotic agent; Z88.4 Allergy status to anesthetic agent; Z88.8 Allergy status to other drugs, medicaments and biological substances; Z79.82 Long term (current) use of aspirin; Z79.899 Other long term (current) drug therapy; Z95.0 Presence of cardiac pacemaker
CPT/HCPCS: 36415; 71045; 71275; 80053; 83735; 84443; 84484; 85025; 85379; 99285; A9270; J3490; J7040; Q9967; 93010; 99284

== ENCOUNTER 2023-01-23 15:53 | Observation (INO) | payer MEDICARE, MEDICAID ==
[2023-01-23] MEDS ORDERED: Sodium Chloride 0.9% 10 ML Syringe FLUSH PRN ×2 (16:05→22:30)
[2023-01-23] MEDS ORDERED: Sodium Chloride 0.9% 2.5 ML Syringe FLUSH PRN ×2 (16:05→22:30)
[2023-01-23 16:27] LABS: BASOPHILS PERCENT AUTO 0.3 % (0.0-1.5); EOSINOPHILS PERCENT AUTO 0.1 % (0.0-7.0); HEMATOCRIT 38.6 % (36.0-46.0); HEMOGLOBIN 12.9 g/dL (12.0-16.0); LYMPHOCYTES ABSOLUTE AUTO 1.2 K/uL (0.6-2.4); LYMPHOCYTES PERCENT AUTO 12.7 % (16.0-40.0); MEAN CORPUSCULAR HEMOGLOBIN 31.3 pg (27.0-32.0); MEAN CORPUSCULAR HGB CONC 33.4 g/dL (31.0-37.0); MEAN CORPUSCULAR VOLUME 93.7 fL (80.0-98.0); MONOCYTES ABSOLUTE AUTO 0.5 K/uL (0.0-0.8); MONOCYTES PERCENT AUTO 4.7 % (0.0-15.0); NEUTROPHILS PERCENT AUTO 82.2 % (48.0-80.0); NRBC ABSOLUTE 0 K/uL; PLATELET COUNT,PLT 262 K/uL (150-400); RED BLOOD CELL COUNT 4.12 M/uL (4.30-5.90); WHITE BLOOD CELL COUNT,WBC 9.72 K/uL (4.0-11.0)
[2023-01-23 16:37] LABS: INR 1.06 (0.86-1.11)
[2023-01-23 16:51] LABS: A/G RATIO 0.9 (0.9-1.6); ALANINE AMINOTRANSFERASE,ALT 13 IU/L (14-63); ALBUMIN 3.5 g/dL (3.4-5.0); ALKALINE PHOSPHATASE 134 U/L (46-116); ASPARTATE AMNIOTRANSFERASE,AST 17 IU/L (15-37); BILIRUBIN TOTAL 0.5 mg/dL (0.2-1.0); BLOOD UREA NITROGEN,BUN 12 mg/dL (7.0-18.0); CALCIUM 8.5 mg/dL (8.5-10.1); CARBON DIOXIDE,CO2 24.9 mmol/L (21.0-32.0); CHLORIDE,CL 105 mmol/L (98-107); CREATINE KINASE,CK 111 U/L (26-308); CREATININE 0.7 mg/dL (0.6-1.0); EST CRCL DRUG DOSING (CG) 74.36 mL/min; ETHANOL BLOOD MEDICAL <3 mg/dL; GLUCOSE RANDOM 142 mg/dL (74-106); POTASSIUM,K 3.5 mmol/L (3.5-5.1); PROTEIN TOTAL,TP 7.5 g/dL (6.4-8.2); SODIUM,NA 141 mmol/L (136-145)
[2023-01-23 16:52] LABS: ESTIMATED GFR 92 mL/min (>60)
[2023-01-23] MEDS ORDERED: Prochlorperazine 10 MG/2 ML SDV IVPUSH ONE (17:11)
[2023-01-23 18:16] LABS: APPEARANCE,URINE SLT CLOUDY; COLOR,URINE YELLOW; GLUCOSE,URINE NEGATIVE (NEGATIVE); KETONES,URINE >=80 mg/dL (NEGATIVE); LEUKOCYTE ESTERASE,URINE NEGATIVE (NEGATIVE); NITRITE,URINE NEGATIVE (NEGATIVE); OCCULT BLOOD,URINE NEGATIVE (NEGATIVE); PROTEIN,URINE TRACE mg/dL (NEGATIVE)
[2023-01-23 18:26] LABS: AMPHETAMINES SCREEN, URINE NEGATIVE (CUTOFF=500); BARBITURATE SCREEN,URINE NEGATIVE (CUTOFF=200); BENZODIAZEPINES SCREEN,URINE PRESUMPTIVE POSITIVE (CUTOFF=150); BUPRENORPHINE SCREEN,URINE NEGATIVE (CUTOFF=10); METHADONE SCREEN, URINE NEGATIVE (CUTOFF=200); METHAMPHETAMINES SCREEN, URINE NEGATIVE (CUTOFF=500); OXYCODONE SCREEN,URINE NEGATIVE (CUT0FF=100); PCP SCREEN,URINE NEGATIVE (CUTOFF=25); PROPOXYPHENE SCREEN,URINE NEGATIVE (CUTOFF=300); THC SCREEN,URINE 20 NG/ML NEGATIVE (CUTOFF=50)
[2023-01-23 18:40] LABS: BASE EXCESS ARTERIAL -1.8 (-2.0-3.0); BICARBONATE,ARTERIAL 23 mEq/L (22-26); PCO2 ARTERIAL 38 mmHG (35-45); PO2 ARTERIAL 63 mmHG (80-105)
[2023-01-23 18:51] LABS: BILIRUBIN,URINE SMALL (NEGATIVE)
[2023-01-23] MEDS ORDERED: Naloxone 0.4 MG/ML SDV IVPUSH ONE (18:52)
[2023-01-23 19:09] LABS: EPITHELIAL CELLS,URINE RARE (NONE-FEW)
[2023-01-23 19:10] LABS: BACTERIA,URINE RARE (NEGATIVE)
[2023-01-23] MEDS ORDERED: Ondansetron 4 MG/2 ML SDV IVPUSH PRN (21:15)
[2023-01-23] MEDS ORDERED: hydrALAZINE 20 MG/ML SDV IVPUSH ONE (21:26)
[2023-01-23] MEDS ORDERED: Patient's Own Medication 1 Each INH PRN (22:22)
[2023-01-23] MEDS ORDERED: Promethazine 25 MG/ML SDV IM PRN (22:30)
[2023-01-23] MEDS ORDERED: Acetaminophen 325 MG Tab PO PRN (22:30)
[2023-01-23] MEDS ORDERED: Sodium Chloride 0.9% 20 ML SDV IV PRN (22:30)
[2023-01-23] MEDS ORDERED: Promethazine 25 MG Tab PO PRN (22:30)
[2023-01-23] MEDS ORDERED: Albuterol/Ipratropium 3.0-0.5 MG/3 ML Neb Soln NEB PRN (22:30)
[2023-01-24] MEDS ORDERED: Diltiazem 120 MG Cap.CD PO ONE (00:45)
[2023-01-24 05:43] LABS: BASOPHILS PERCENT AUTO 0.1 % (0.0-1.5); HEMATOCRIT 37.6 % (36.0-46.0); HEMOGLOBIN 12.2 g/dL (12.0-16.0); LYMPHOCYTES ABSOLUTE AUTO 1.1 K/uL (0.6-2.4); LYMPHOCYTES PERCENT AUTO 11.2 % (16.0-40.0); MEAN CORPUSCULAR HEMOGLOBIN 30.3 pg (27.0-32.0); MEAN CORPUSCULAR HGB CONC 32.4 g/dL (31.0-37.0); MEAN CORPUSCULAR VOLUME 93.5 fL (80.0-98.0); MONOCYTES ABSOLUTE AUTO 0.4 K/uL (0.0-0.8); MONOCYTES PERCENT AUTO 3.7 % (0.0-15.0); NEUTROPHILS ABSOLUTE AUTO 8.3 K/uL (1.4-5.7); NRBC ABSOLUTE 0 K/uL; PLATELET COUNT,PLT 266 K/uL (150-400); RED BLOOD CELL COUNT 4.02 M/uL (4.30-5.90); WHITE BLOOD CELL COUNT,WBC 9.73 K/uL (4.0-11.0)
[2023-01-24 05:56] LABS: CALCIUM 8.6 mg/dL (8.5-10.1); CARBON DIOXIDE,CO2 21.8 mmol/L (21.0-32.0); CREATININE 0.7 mg/dL (0.6-1.0); EST CRCL DRUG DOSING (CG) 73.26 mL/min; MAGNESIUM 1.8 mg/dL (1.8-2.4); POTASSIUM,K 3.1 mmol/L (3.5-5.1)
[2023-01-24] MEDS ORDERED: Omeprazole 20 MG Cap.CR PO SCH (07:30)
[2023-01-24] MEDS ORDERED: Potassium Chloride 20 MEQ Tab.ER PO ONE (07:30)
[2023-01-24] MEDS ORDERED: Potassium Chloride 20 MEQ Tab.ER PO SCH (08:00)
[2023-01-24] MEDS ORDERED: Diltiazem 120 MG Cap.CD PO SCH (09:00)
[2023-01-24] MEDS ORDERED: DULoxetine 60 MG Cap PO SCH (09:00)
[2023-01-24] MEDS ORDERED: Escitalopram 10 MG Tab PO SCH (09:00)
[2023-01-24] MEDS ORDERED: Apixaban 5 MG Tab PO SCH (10:00)
[2023-01-24] MEDS ORDERED: Hydrochlorothiazide 25 MG Tab PO SCH (10:00)
[2023-01-24 12:32] VITALS: BP 166/77; PULSE 75
[2023-01-24] MEDS ORDERED: atorvaSTATin 40 MG Tab PO SCH (21:00)
== END 2023-01-24 13:07 | disposition home or self-care (01) ==
LOC: MW.ED 15:53 → MW.MS 19:38
PROVIDERS: ADMIT Family Medicine; ATTEND Family Medicine
DX: R53.1 Weakness (principal); R55 Syncope and collapse; R29.6 Repeated falls; I48.91 Unspecified atrial fibrillation; E78.00 Pure hypercholesterolemia, unspecified; I10 Essential (primary) hypertension; J44.9 Chronic obstructive pulmonary disease, unspecified; K21.9 Gastro-esophageal reflux disease without esophagitis; M19.90 Unspecified osteoarthritis, unspecified site; M81.0 Age-related osteoporosis without current pathological fracture; G89.29 Other chronic pain; F41.9 Anxiety disorder, unspecified; F32.A Depression, unspecified; E66.9 Obesity, unspecified; Z88.8 Allergy status to other drugs, medicaments and biological substances; Z79.82 Long term (current) use of aspirin; Z79.01 Long term (current) use of anticoagulants; Z79.899 Other long term (current) drug therapy; Z95.0 Presence of cardiac pacemaker; Z88.5 Allergy status to narcotic agent; Z86.79 Personal history of other diseases of the circulatory system; W19.XXXA Unspecified fall, initial encounter; Y92.009 Unspecified place in unspecified non-institutional (private) residence as the place of occurrence of the external cause; Z68.21 Body mass index [BMI] 21.0-21.9, adult
CPT/HCPCS: 36415; 36600; 70450; 71045; 72070; 72100; 72125; 72170; 80048; 80053; 80305; 80307; 81001; 82140; 82550; 82803; 83735; 84484; 85025; 85610; 93005; 97161; A9270; J0360; J0780; J2405; J2550; J3490

== ENCOUNTER 2023-04-02 19:07 | Inpatient (IN) | payer MEDICARE, MEDICAID ==
[2023-04-02] MEDS ORDERED: Sodium Chloride 0.9% 10 ML Syringe FLUSH PRN (19:19)
[2023-04-02] MEDS ORDERED: Sodium Chloride 0.9% 2.5 ML Syringe FLUSH PRN (19:19)
[2023-04-02 19:27] LABS: BASOPHILS ABSOLUTE AUTO 0.04 K/uL (0.00-0.20); BASOPHILS PERCENT AUTO 0.2 % (0.0-1.0); HEMATOCRIT 44.5 % (37.0-47.0); HEMOGLOBIN 15.2 g/dL (12.0-16.0); IMMATURE GRAN PERCENT AUTO 0.5 % (0.0-0.4); LYMPHOCYTES ABSOLUTE AUTO 1.96 K/uL (1.00-4.80); LYMPHOCYTES PERCENT AUTO 10.7 % (24.0-44.0); MEAN CORPUSCULAR HEMOGLOBIN 30.6 pg (28.0-32.0); MEAN CORPUSCULAR HGB CONC 34.2 g/dL (32.0-36.0); MEAN CORPUSCULAR VOLUME 89.7 fL (83.0-99.0); MEAN PLATELET VOLUME 11.2 fL (9.4-12.3); MONOCYTES ABSOLUTE AUTO 0.78 K/uL (0.00-0.80); MONOCYTES PERCENT AUTO 4.3 % (0.0-8.0); NEUTROPHILS ABSOLUTE AUTO 15.45 K/uL (1.80-7.70); NEUTROPHILS PERCENT AUTO 84.3 % (41.0-71.0); PLATELET COUNT,PLT 340 K/uL (150-400); RED BLOOD CELL COUNT 4.96 M/uL (4.10-5.30); WHITE BLOOD CELL COUNT,WBC 18.33 K/uL (3.9-11.3)
[2023-04-02] MEDS ORDERED: Sodium Chloride 0.9% 500 ML IV SCH (19:30)
[2023-04-02 19:44] LABS: INR 1.05 (0.86-1.11)
[2023-04-02 19:48] LABS: ALBUMIN 3.9 g/dL (3.4-5.0); BILIRUBIN TOTAL 0.7 mg/dL (0.2-1.0); CALCIUM 9.8 mg/dL (8.5-10.1); CREATININE 1.3 mg/dL (0.6-1.0); EST CRCL DRUG DOSING (CG) 38.6 mL/min; LACTIC ACID 1.7 mmol/L (0.4-2.0); POTASSIUM,K 3.6 mmol/L (3.5-5.1); PROTEIN TOTAL,TP 8.5 g/dL (6.4-8.2)
[2023-04-02 19:50] LABS: A/G RATIO 0.9 (0.9-1.6)
[2023-04-02 20:30] LABS: CORONAVIRUS COVID-19 NAA NEGATIVE (NEGATIVE); INFLUENZA A NAA NEGATIVE (NEGATIVE); INFLUENZA B NAA NEGATIVE (NEGATIVE); RESPIRATORY SYNCYTIAL VIR NAA NEGATIVE (NEGATIVE)
[2023-04-02 20:47] LABS: APPEARANCE,URINE CLEAR; COLOR,URINE YELLOW; GLUCOSE,URINE NEGATIVE (NEGATIVE); KETONES,URINE 15 mg/dL (NEGATIVE); LEUKOCYTE ESTERASE,URINE NEGATIVE (NEGATIVE); NITRITE,URINE NEGATIVE (NEGATIVE); OCCULT BLOOD,URINE NEGATIVE (NEGATIVE); PH,URINE 5.5 (5.0-8.0); PROTEIN,URINE 30 mg/dL (NEGATIVE)
[2023-04-02 20:48] LABS: BILIRUBIN,URINE MODERATE (NEGATIVE)
[2023-04-02 20:49] LABS: BACTERIA,URINE RARE (NEGATIVE); EPITHELIAL CELLS,URINE RARE (NONE-FEW); RBC,URINE 0-1 (0-2/HPF)
[2023-04-02] MEDS ORDERED: cefTRIAXone 1 GM in Sodium Chloride 0.9% 50 ML IV ONE (21:21)
[2023-04-02 21:45] LABS: AMPHETAMINES SCREEN, URINE NEGATIVE (CUTOFF=500); BARBITURATE SCREEN,URINE NEGATIVE (CUTOFF=200); BENZODIAZEPINES SCREEN,URINE PRESUMPTIVE POSITIVE (CUTOFF=150); BUPRENORPHINE SCREEN,URINE NEGATIVE (CUTOFF=10); METHADONE SCREEN, URINE NEGATIVE (CUTOFF=200); METHAMPHETAMINES SCREEN, URINE NEGATIVE (CUTOFF=500); OXYCODONE SCREEN,URINE NEGATIVE (CUT0FF=100); PCP SCREEN,URINE NEGATIVE (CUTOFF=25); PROPOXYPHENE SCREEN,URINE NEGATIVE (CUTOFF=300); THC SCREEN,URINE 20 NG/ML NEGATIVE (CUTOFF=50)
[2023-04-03] MEDS ORDERED: Sodium Chloride 0.9% 1,000 ML IV SCH ×2 (01:15→02:15)
[2023-04-03] MEDS: hydrALAZINE 25 MG Tab PO SCH ×3 (04:55→20:50)
[2023-04-03 05:38] LABS: BASOPHILS ABSOLUTE AUTO 0.03 K/uL (0.00-0.20); BASOPHILS PERCENT AUTO 0.2 % (0.0-1.0); HEMOGLOBIN 13.7 g/dL (12.0-16.0); IMMATURE GRAN PERCENT AUTO 0.5 % (0.0-0.4); LYMPHOCYTES ABSOLUTE AUTO 1.75 K/uL (1.00-4.80); LYMPHOCYTES PERCENT AUTO 9.2 % (24.0-44.0); MEAN CORPUSCULAR HEMOGLOBIN 30.6 pg (28.0-32.0); MEAN CORPUSCULAR HGB CONC 34.3 g/dL (32.0-36.0); MEAN CORPUSCULAR VOLUME 89.5 fL (83.0-99.0); MEAN PLATELET VOLUME 11.7 fL (9.4-12.3); MONOCYTES ABSOLUTE AUTO 0.81 K/uL (0.00-0.80); MONOCYTES PERCENT AUTO 4.3 % (0.0-8.0); NEUTROPHILS ABSOLUTE AUTO 16.33 K/uL (1.80-7.70); NEUTROPHILS PERCENT AUTO 85.8 % (41.0-71.0); PLATELET COUNT,PLT 339 K/uL (150-400); RED BLOOD CELL COUNT 4.47 M/uL (4.10-5.30); WHITE BLOOD CELL COUNT,WBC 19.02 K/uL (3.9-11.3)
[2023-04-03 06:02] LABS: CARBON DIOXIDE,CO2 26.1 mmol/L (21.0-32.0); CREATININE 1.2 mg/dL (0.6-1.0); EST CRCL DRUG DOSING (CG) 41.81 mL/min; POTASSIUM,K 2.8 mmol/L (3.5-5.1)
[2023-04-03] MEDS ORDERED: Potassium Chloride 20 MEQ Tab.ER PO ONE ×2 (07:20→18:25)
[2023-04-03] MEDS: Potassium Chloride 20 MEQ in Premix Bag 1 BAG IV SCH ×2 (09:00→12:20)
[2023-04-03] MEDS: Apixaban 5 MG Tab PO SCH ×2 (11:19→20:50)
[2023-04-03] MEDS: Diltiazem 120 MG Cap.CD PO SCH (11:20)
[2023-04-03] MEDS ORDERED: NS with KCl 40mEq 1,000 ML IV SCH (11:30)
[2023-04-03] MEDS ORDERED: LORazepam 2 MG/ML SDV IVPUSH ONE (11:37)
[2023-04-03] MEDS: Potassium Chloride 10 MEQ in Premix Bag 1 BAG IV SCH ×6 (12:17→18:57)
[2023-04-03] MEDS ORDERED: Azithromycin 500 MG in Sodium Chloride 0.9% 250 ML IV SCH (14:00)
[2023-04-03 14:09] LABS: INR 1.1 (0.86-1.11)
[2023-04-03 16:49] LABS: CALCIUM 8.4 mg/dL (8.5-10.1); CARBON DIOXIDE,CO2 24.8 mmol/L (21.0-32.0); EST CRCL DRUG DOSING (CG) 50.18 mL/min; POTASSIUM,K 3.4 mmol/L (3.5-5.1)
[2023-04-03] MEDS ORDERED: cefTRIAXone 1 GM in Sodium Chloride 0.9% 50 ML IV SCH (21:00)
[2023-04-04 05:44] LABS: BASOPHILS ABSOLUTE AUTO 0.06 K/uL (0.00-0.20); BASOPHILS PERCENT AUTO 0.5 % (0.0-1.0); EOSINOPHILS ABSOLUTE AUTO 0.27 K/uL (0.00-0.45); EOSINOPHILS PERCENT AUTO 2.5 % (0.0-6.0); HEMATOCRIT 32.2 % (37.0-47.0); HEMOGLOBIN 10.9 g/dL (12.0-16.0); IMMATURE GRAN ABSOLUTE AUTO 0.02 K/uL (0.00-0.05); IMMATURE GRAN PERCENT AUTO 0.2 % (0.0-0.4); LYMPHOCYTES PERCENT AUTO 27.5 % (24.0-44.0); MEAN CORPUSCULAR HEMOGLOBIN 30.7 pg (28.0-32.0); MEAN CORPUSCULAR HGB CONC 33.9 g/dL (32.0-36.0); MEAN CORPUSCULAR VOLUME 90.7 fL (83.0-99.0); MEAN PLATELET VOLUME 10.9 fL (9.4-12.3); MONOCYTES ABSOLUTE AUTO 0.75 K/uL (0.00-0.80); MONOCYTES PERCENT AUTO 6.9 % (0.0-8.0); NEUTROPHILS ABSOLUTE AUTO 6.82 K/uL (1.80-7.70); NEUTROPHILS PERCENT AUTO 62.4 % (41.0-71.0); PLATELET COUNT,PLT 239 K/uL (150-400); RED BLOOD CELL COUNT 3.55 M/uL (4.10-5.30); WHITE BLOOD CELL COUNT,WBC 10.92 K/uL (3.9-11.3)
[2023-04-04 06:04] LABS: A/G RATIO 0.8 (0.9-1.6); ALBUMIN 2.7 g/dL (3.4-5.0); BILIRUBIN TOTAL 0.4 mg/dL (0.2-1.0); CALCIUM 8.5 mg/dL (8.5-10.1); CARBON DIOXIDE,CO2 26.9 mmol/L (21.0-32.0); CREATININE 0.8 mg/dL (0.6-1.0); EST CRCL DRUG DOSING (CG) 62.72 mL/min; POTASSIUM,K 3.7 mmol/L (3.5-5.1); PROTEIN TOTAL,TP 5.9 g/dL (6.4-8.2)
[2023-04-04] MEDS: Diltiazem 120 MG Cap.CD PO SCH (09:16)
[2023-04-04] MEDS: hydrALAZINE 25 MG Tab PO SCH (09:17)
[2023-04-04] MEDS: Apixaban 5 MG Tab PO SCH (09:17)
[2023-04-04 11:23] VITALS: BP 131/66; PULSE 63
[2023-04-04] MEDS ORDERED: Azithromycin 250 MG Tab PO ONE (13:10)
== END 2023-04-04 15:30 | disposition home health service (06) | DRG 947 ==
LOC: MW.ED 19:07 → MW.MS 22:26 → OBSVTOIN 22:26
PROVIDERS: ADMIT Internal Medicine; ATTEND Internal Medicine
DX: R41.82 Altered mental status, unspecified (principal); J18.9 Pneumonia, unspecified organism; N30.00 Acute cystitis without hematuria; F03.94 Unspecified dementia, unspecified severity, with anxiety; N17.9 Acute kidney failure, unspecified; I48.20 Chronic atrial fibrillation, unspecified; T42.4X5A Adverse effect of benzodiazepines, initial encounter; T40.2X5A Adverse effect of other opioids, initial encounter; R32 Unspecified urinary incontinence; E86.0 Dehydration; R29.6 Repeated falls; Z11.52 Encounter for screening for COVID-19; G47.33 Obstructive sleep apnea (adult) (pediatric); I48.91 Unspecified atrial fibrillation; F41.9 Anxiety disorder, unspecified; J44.9 Chronic obstructive pulmonary disease, unspecified; M19.90 Unspecified osteoarthritis, unspecified site; I10 Essential (primary) hypertension; I49.5 Sick sinus syndrome; Z96.649 Presence of unspecified artificial hip joint; Z96.659 Presence of unspecified artificial knee joint; E27.8 Other specified disorders of adrenal gland; F11.90 Opioid use, unspecified, uncomplicated; E78.00 Pure hypercholesterolemia, unspecified; F31.9 Bipolar disorder, unspecified; K21.9 Gastro-esophageal reflux disease without esophagitis; E66.9 Obesity, unspecified; Z79.01 Long term (current) use of anticoagulants; Z87.81 Personal history of (healed) traumatic fracture; Z91.81 History of falling; Z68.24 Body mass index [BMI] 24.0-24.9, adult; Z86.16 Personal history of COVID-19; Z98.49 Cataract extraction status, unspecified eye; Z90.49 Acquired absence of other specified parts of digestive tract; Z98.84 Bariatric surgery status; Z79.82 Long term (current) use of aspirin; Z88.5 Allergy status to narcotic agent; Z88.8 Allergy status to other drugs, medicaments and biological substances; W19.XXXA Unspecified fall, initial encounter; Z79.899 Other long term (current) drug therapy; Z95.0 Presence of cardiac pacemaker; Z86.73 Personal history of transient ischemic attack (TIA), and cerebral infarction without residual deficits
CPT/HCPCS: 0241U; 36415; 51702; 70450; 71045; 72170; 74176; 80048; 80053; 80305; 81001; 82140; 82550; 83605; 83690; 83735; 84484; 85025; 85610; 87040; 93005; 96361; 96365; 96367; 97162; 99285; 93010; 99222; 99238; 99283; A9270-GY; G0378; J0456; J0696; J2060; J3480; J3490; J7030; J7040; J7050

== ENCOUNTER 2023-04-11 23:40 | Emergency (ER) | payer MEDICARE, MEDICAID ==
[2023-04-11] MEDS ORDERED: Sodium Chloride 0.9% 2.5 ML Syringe FLUSH PRN (23:45)
[2023-04-11] MEDS ORDERED: Sodium Chloride 0.9% 10 ML Syringe FLUSH PRN (23:45)
[2023-04-11] MEDS ORDERED: Sodium Chloride 0.9% 1,000 ML IV ONE (23:45)
[2023-04-11] MEDS ORDERED: diphenhydrAMINE 50 MG/ML SDV IVPUSH ONE (23:47)
[2023-04-11] MEDS ORDERED: Metoclopramide 10 MG/2 ML SDV IVPUSH ONE (23:47)
[2023-04-11 23:52] LABS: BASOPHILS ABSOLUTE AUTO 0.07 K/uL (0.00-0.20); BASOPHILS PERCENT AUTO 0.7 % (0.0-1.0); EOSINOPHILS ABSOLUTE AUTO 0.15 K/uL (0.00-0.45); EOSINOPHILS PERCENT AUTO 1.6 % (0.0-6.0); HEMATOCRIT 33.3 % (37.0-47.0); HEMOGLOBIN 11.3 g/dL (12.0-16.0); IMMATURE GRAN ABSOLUTE AUTO 0.02 K/uL (0.00-0.05); IMMATURE GRAN PERCENT AUTO 0.2 % (0.0-0.4); LYMPHOCYTES ABSOLUTE AUTO 3.31 K/uL (1.00-4.80); LYMPHOCYTES PERCENT AUTO 34.8 % (24.0-44.0); MEAN CORPUSCULAR HEMOGLOBIN 31.4 pg (28.0-32.0); MEAN CORPUSCULAR HGB CONC 33.9 g/dL (32.0-36.0); MEAN CORPUSCULAR VOLUME 92.5 fL (83.0-99.0); MEAN PLATELET VOLUME 12.4 fL (9.4-12.3); MONOCYTES ABSOLUTE AUTO 0.71 K/uL (0.00-0.80); MONOCYTES PERCENT AUTO 7.5 % (0.0-8.0); NEUTROPHILS ABSOLUTE AUTO 5.25 K/uL (1.80-7.70); NEUTROPHILS PERCENT AUTO 55.2 % (41.0-71.0); PLATELET COUNT,PLT 259 K/uL (150-400); WHITE BLOOD CELL COUNT,WBC 9.51 K/uL (3.9-11.3)
[2023-04-12 00:13] LABS: APPEARANCE,URINE CLEAR; BILIRUBIN,URINE NEGATIVE (NEGATIVE); COLOR,URINE YELLOW; GLUCOSE,URINE NEGATIVE (NEGATIVE); KETONES,URINE NEGATIVE (NEGATIVE); LEUKOCYTE ESTERASE,URINE TRACE (NEGATIVE); NITRITE,URINE NEGATIVE (NEGATIVE); OCCULT BLOOD,URINE NEGATIVE (NEGATIVE); PH,URINE 5.5 (5.0-8.0); PROTEIN,URINE NEGATIVE (NEGATIVE); UROBILINOGEN,URINE 0.2 EU/dL (<2.0)
[2023-04-12 00:21] LABS: AMPHETAMINES SCREEN, URINE NEGATIVE (CUTOFF=500); BARBITURATE SCREEN,URINE NEGATIVE (CUTOFF=200); BENZODIAZEPINES SCREEN,URINE NEGATIVE (CUTOFF=150); BUPRENORPHINE SCREEN,URINE NEGATIVE (CUTOFF=10); METHADONE SCREEN, URINE NEGATIVE (CUTOFF=200); METHAMPHETAMINES SCREEN, URINE NEGATIVE (CUTOFF=500); OXYCODONE SCREEN,URINE NEGATIVE (CUT0FF=100); PCP SCREEN,URINE NEGATIVE (CUTOFF=25); THC SCREEN,URINE 20 NG/ML NEGATIVE (CUTOFF=50)
[2023-04-12 00:22] LABS: BACTERIA,URINE FEW (NEGATIVE); EPITHELIAL CELLS,URINE FEW (NONE-FEW); RBC,URINE NONE SEEN (0-2/HPF)
[2023-04-12 00:24] LABS: A/G RATIO 0.9 (0.9-1.6); ALANINE AMINOTRANSFERASE,ALT 25 IU/L (14-63); ALBUMIN 3.3 g/dL (3.4-5.0); ALKALINE PHOSPHATASE 113 U/L (46-116); ASPARTATE AMNIOTRANSFERASE,AST 15 IU/L (15-37); BILIRUBIN TOTAL 0.2 mg/dL (0.2-1.0); BLOOD UREA NITROGEN,BUN 5 mg/dL (7.0-18.0); CALCIUM 8.9 mg/dL (8.5-10.1); CARBON DIOXIDE,CO2 28.2 mmol/L (21.0-32.0); CHLORIDE,CL 106 mmol/L (98-107); CREATININE 0.8 mg/dL (0.6-1.0); EST CRCL DRUG DOSING (CG) 58.04 mL/min; GLUCOSE RANDOM 96 mg/dL (74-106); POTASSIUM,K 3.1 mmol/L (3.5-5.1); PROTEIN TOTAL,TP 6.9 g/dL (6.4-8.2); SODIUM,NA 141 mmol/L (136-145)
[2023-04-12 00:28] LABS: ESTIMATED GFR 79 mL/min (>60); ETHANOL BLOOD MEDICAL < 3.0 mg/dL
[2023-04-12 00:33] LABS: INR 1.03 (0.86-1.11); PTT,PARTIAL THROMBOPLSTIN TIME 29.3 SEC (23.9-30.7)
[2023-04-12] MEDS ORDERED: Aspirin 81 MG Tab.Chew PO ONE (01:07)
[2023-04-12 01:26] VITALS: BP 161/79; PULSE 64
== END 2023-04-12 02:00 ==
LOC: MW.ED 23:40
DX: I63.9 Cerebral infarction, unspecified (principal); I48.91 Unspecified atrial fibrillation; I10 Essential (primary) hypertension; E78.00 Pure hypercholesterolemia, unspecified; J44.9 Chronic obstructive pulmonary disease, unspecified; Z86.16 Personal history of COVID-19; K21.9 Gastro-esophageal reflux disease without esophagitis; Z88.0 Allergy status to penicillin; Z88.5 Allergy status to narcotic agent; Z88.8 Allergy status to other drugs, medicaments and biological substances; Z88.6 Allergy status to analgesic agent; E66.9 Obesity, unspecified; Z68.26 Body mass index [BMI] 26.0-26.9, adult; Z79.899 Other long term (current) drug therapy; Z79.01 Long term (current) use of anticoagulants
CPT/HCPCS: 36415; 70450; 71045; 80053; 80305; 80307; 81001; 84484; 85025; 85610; 85730; 93005; 96374; 96375; 99291; A9270; J1200; J2765; J3490; J7030; 93010

== ENCOUNTER 2023-04-28 13:26 | Emergency (ER) | payer MEDICARE, MEDICAID ==
[2023-04-28] MEDS ORDERED: Naloxone 0.4 MG/ML SDV IVPUSH ONE (13:46)
[2023-04-28 13:51] LABS: BASOPHILS ABSOLUTE AUTO 0.04 K/uL (0.00-0.20); BASOPHILS PERCENT AUTO 0.6 % (0.0-1.0); EOSINOPHILS ABSOLUTE AUTO 0.12 K/uL (0.00-0.45); EOSINOPHILS PERCENT AUTO 1.7 % (0.0-6.0); HEMATOCRIT 35.5 % (37.0-47.0); HEMOGLOBIN 11.6 g/dL (12.0-16.0); IMMATURE GRAN ABSOLUTE AUTO 0.03 K/uL (0.00-0.05); IMMATURE GRAN PERCENT AUTO 0.4 % (0.0-0.4); LYMPHOCYTES PERCENT AUTO 36.5 % (24.0-44.0); MEAN CORPUSCULAR HEMOGLOBIN 30.6 pg (28.0-32.0); MEAN CORPUSCULAR HGB CONC 32.7 g/dL (32.0-36.0); MEAN CORPUSCULAR VOLUME 93.7 fL (83.0-99.0); MEAN PLATELET VOLUME 11.9 fL (9.4-12.3); MONOCYTES ABSOLUTE AUTO 0.52 K/uL (0.00-0.80); MONOCYTES PERCENT AUTO 7.3 % (0.0-8.0); NEUTROPHILS ABSOLUTE AUTO 3.81 K/uL (1.80-7.70); NEUTROPHILS PERCENT AUTO 53.5 % (41.0-71.0); PLATELET COUNT,PLT 246 K/uL (150-400); RED BLOOD CELL COUNT 3.79 M/uL (4.10-5.30); WHITE BLOOD CELL COUNT,WBC 7.12 K/uL (3.9-11.3)
[2023-04-28 14:02] LABS: BLOOD UREA NITROGEN,BUN 12 mg/dL (7.0-18.0); CALCIUM 8.5 mg/dL (8.5-10.1); CARBON DIOXIDE,CO2 29.6 mmol/L (21.0-32.0); CHLORIDE,CL 105 mmol/L (98-107); CREATININE 0.9 mg/dL (0.6-1.0); ESTIMATED GFR 68 mL/min (>60); GLUCOSE RANDOM 100 mg/dL (74-106); POTASSIUM,K 3.3 mmol/L (3.5-5.1); SODIUM,NA 143 mmol/L (136-145)
[2023-04-28 15:37] VITALS: BP 112/58; PULSE 60
== END 2023-04-28 15:31 | disposition home or self-care (01) ==
LOC: MW.ED 13:26
DX: R40.4 Transient alteration of awareness (principal); T40.2X5A Adverse effect of other opioids, initial encounter; I11.0 Hypertensive heart disease with heart failure; I50.9 Heart failure, unspecified; J44.9 Chronic obstructive pulmonary disease, unspecified; I48.91 Unspecified atrial fibrillation; K21.9 Gastro-esophageal reflux disease without esophagitis; Z95.0 Presence of cardiac pacemaker; Z86.73 Personal history of transient ischemic attack (TIA), and cerebral infarction without residual deficits; E66.9 Obesity, unspecified; Z90.49 Acquired absence of other specified parts of digestive tract; Z86.16 Personal history of COVID-19; Z79.899 Other long term (current) drug therapy; Z88.8 Allergy status to other drugs, medicaments and biological substances; Z88.5 Allergy status to narcotic agent; Z88.2 Allergy status to sulfonamides; Z88.6 Allergy status to analgesic agent; W19.XXXA Unspecified fall, initial encounter
CPT/HCPCS: 36415; 70450; 80048; 85025; 96374; 99284; J2310

== ENCOUNTER 2023-05-01 19:16 | Observation (INO) | payer MEDICARE, MEDICAID ==
[2023-05-01] MEDS ORDERED: Sodium Chloride 0.9% 2.5 ML Syringe FLUSH PRN (19:28)
[2023-05-01] MEDS ORDERED: Sodium Chloride 0.9% 10 ML Syringe FLUSH PRN (19:28)
[2023-05-01 19:36] LABS: BASOPHILS ABSOLUTE AUTO 0.05 K/uL (0.00-0.20); BASOPHILS PERCENT AUTO 0.5 % (0.0-1.0); HEMATOCRIT 36.4 % (37.0-47.0); HEMOGLOBIN 12.4 g/dL (12.0-16.0); IMMATURE GRAN ABSOLUTE AUTO 0.04 K/uL (0.00-0.05); IMMATURE GRAN PERCENT AUTO 0.4 % (0.0-0.4); LYMPHOCYTES PERCENT AUTO 14.9 % (24.0-44.0); MEAN CORPUSCULAR HEMOGLOBIN 31.1 pg (28.0-32.0); MEAN CORPUSCULAR HGB CONC 34.1 g/dL (32.0-36.0); MEAN CORPUSCULAR VOLUME 91.2 fL (83.0-99.0); MEAN PLATELET VOLUME 11.7 fL (9.4-12.3); MONOCYTES ABSOLUTE AUTO 0.31 K/uL (0.00-0.80); MONOCYTES PERCENT AUTO 3.1 % (0.0-8.0); NEUTROPHILS ABSOLUTE AUTO 8.18 K/uL (1.80-7.70); NEUTROPHILS PERCENT AUTO 81.1 % (41.0-71.0); PLATELET COUNT,PLT 234 K/uL (150-400); RED BLOOD CELL COUNT 3.99 M/uL (4.10-5.30); WHITE BLOOD CELL COUNT,WBC 10.08 K/uL (3.9-11.3)
[2023-05-01 19:44] LABS: INR 1.04 (0.86-1.11)
[2023-05-01 20:08] LABS: A/G RATIO 0.9 (0.9-1.6); ALBUMIN 3.2 g/dL (3.4-5.0); BILIRUBIN TOTAL 0.6 mg/dL (0.2-1.0); CALCIUM 8.7 mg/dL (8.5-10.1); CARBON DIOXIDE,CO2 23.9 mmol/L (21.0-32.0); CREATININE 0.7 mg/dL (0.6-1.0); EST CRCL DRUG DOSING (CG) 75.92 mL/min; MAGNESIUM 1.6 mg/dL (1.8-2.4); POTASSIUM,K 3.7 mmol/L (3.5-5.1); PROTEIN TOTAL,TP 6.9 g/dL (6.4-8.2)
[2023-05-01] MEDS ORDERED: Iopamidol 755 MG/ML 500 ML Multipack Bottle IVPUSH ONE (20:34)
[2023-05-01] MEDS: Sodium Chloride 0.9% 500 ML IV SCH (20:39)
[2023-05-01] MEDS ORDERED: Diltiazem 25 MG/5 ML SDV IVPUSH ONE (23:11)
[2023-05-02 06:11] LABS: APPEARANCE,URINE CLEAR; BILIRUBIN,URINE NEGATIVE (NEGATIVE); COLOR,URINE YELLOW; GLUCOSE,URINE NEGATIVE (NEGATIVE); KETONES,URINE >=80 mg/dL (NEGATIVE); LEUKOCYTE ESTERASE,URINE NEGATIVE (NEGATIVE); NITRITE,URINE NEGATIVE (NEGATIVE); OCCULT BLOOD,URINE TRACE-INTACT (NEGATIVE); PH,URINE 6.5 (5.0-8.0); PROTEIN,URINE NEGATIVE (NEGATIVE)
[2023-05-02] MEDS ORDERED: Prochlorperazine 10 MG/2 ML SDV IVPUSH ONE (06:13)
[2023-05-02] MEDS ORDERED: Sodium Chloride 0.9% 500 ML IV SCH (06:15)
[2023-05-02 06:18] LABS: AMPHETAMINES SCREEN, URINE NEGATIVE (CUTOFF=500); BARBITURATE SCREEN,URINE NEGATIVE (CUTOFF=200); BENZODIAZEPINES SCREEN,URINE PRESUMPTIVE POSITIVE (CUTOFF=150); BUPRENORPHINE SCREEN,URINE NEGATIVE (CUTOFF=10); METHADONE SCREEN, URINE NEGATIVE (CUTOFF=200); METHAMPHETAMINES SCREEN, URINE NEGATIVE (CUTOFF=500); OXYCODONE SCREEN,URINE NEGATIVE (CUT0FF=100); PCP SCREEN,URINE NEGATIVE (CUTOFF=25); THC SCREEN,URINE 20 NG/ML NEGATIVE (CUTOFF=50)
[2023-05-02] MEDS: Sodium Chloride 0.9% 500 ML IV SCH (06:21)
[2023-05-02] MEDS ORDERED: Acetaminophen 325 MG Tab PO ONE (06:36)
[2023-05-02 06:42] LABS: BACTERIA,URINE RARE (NEGATIVE); EPITHELIAL CELLS,URINE RARE (NONE-FEW); RBC,URINE 0-1 (0-2/HPF); WBC,URINE 0-1 (0-5/HPF)
[2023-05-02 08:17] LABS: BASE EXCESS VENOUS 1.7 (-2.0-3.0); PH,VENOUS 7.41 (7.31-7.41)
[2023-05-02] MEDS ORDERED: Acetaminophen 650 MG Supp RECTAL PRN (09:38)
[2023-05-02] MEDS ORDERED: Polyethylene Glycol 3350 Powder 17 GM Packet PO PRN (09:38)
[2023-05-02] MEDS ORDERED: Sodium Chloride 0.9% 10 ML Syringe FLUSH PRN (09:38)
[2023-05-02] MEDS ORDERED: Sodium Chloride 0.9% 20 ML SDV IV PRN (09:38)
[2023-05-02] MEDS ORDERED: Sodium Chloride 0.9% 2.5 ML Syringe FLUSH PRN (09:38)
[2023-05-02] MEDS ORDERED: Albuterol/Ipratropium 3.0-0.5 MG/3 ML Neb Soln NEB PRN (09:38)
[2023-05-02] MEDS ORDERED: Ondansetron 4 MG/2 ML SDV IVPUSH PRN (09:38)
[2023-05-02] MEDS ORDERED: Acetaminophen 325 MG Tab PO PRN (09:38)
[2023-05-02] MEDS ORDERED: Sodium Chloride 0.9% 1,000 ML IV SCH (09:45)
[2023-05-02] MEDS: Apixaban 5 MG Tab PO SCH ×2 (11:33→21:01)
[2023-05-02] MEDS: Diltiazem 120 MG Cap.CD PO SCH (11:33)
[2023-05-02] MEDS: Hydrochlorothiazide 25 MG Tab PO SCH (11:41)
[2023-05-02] MEDS: Gabapentin 300 MG Cap PO SCH ×3 (11:41→21:01)
[2023-05-02] MEDS: Escitalopram 10 MG Tab PO SCH (11:42)
[2023-05-02] MEDS: Omeprazole 20 MG Cap.CR PO SCH (12:24)
[2023-05-03 05:46] LABS: BASOPHILS ABSOLUTE AUTO 0.03 K/uL (0.00-0.20); BASOPHILS PERCENT AUTO 0.2 % (0.0-1.0); EOSINOPHILS ABSOLUTE AUTO 0.03 K/uL (0.00-0.45); EOSINOPHILS PERCENT AUTO 0.2 % (0.0-6.0); HEMATOCRIT 31.3 % (37.0-47.0); HEMOGLOBIN 10.7 g/dL (12.0-16.0); IMMATURE GRAN ABSOLUTE AUTO 0.05 K/uL (0.00-0.05); IMMATURE GRAN PERCENT AUTO 0.4 % (0.0-0.4); LYMPHOCYTES ABSOLUTE AUTO 2.46 K/uL (1.00-4.80); LYMPHOCYTES PERCENT AUTO 20.2 % (24.0-44.0); MEAN CORPUSCULAR HEMOGLOBIN 30.9 pg (28.0-32.0); MEAN CORPUSCULAR HGB CONC 34.2 g/dL (32.0-36.0); MEAN CORPUSCULAR VOLUME 90.5 fL (83.0-99.0); MEAN PLATELET VOLUME 11.6 fL (9.4-12.3); MONOCYTES PERCENT AUTO 7.4 % (0.0-8.0); NEUTROPHILS ABSOLUTE AUTO 8.68 K/uL (1.80-7.70); NEUTROPHILS PERCENT AUTO 71.6 % (41.0-71.0); PLATELET COUNT,PLT 236 K/uL (150-400); RED BLOOD CELL COUNT 3.46 M/uL (4.10-5.30); WHITE BLOOD CELL COUNT,WBC 12.15 K/uL (3.9-11.3)
[2023-05-03 06:10] LABS: CALCIUM 8.5 mg/dL (8.5-10.1); CARBON DIOXIDE,CO2 27.5 mmol/L (21.0-32.0); CREATININE 0.9 mg/dL (0.6-1.0); EST CRCL DRUG DOSING (CG) 59.05 mL/min; MAGNESIUM 1.6 mg/dL (1.8-2.4); POTASSIUM,K 2.5 mmol/L (3.5-5.1)
[2023-05-03] MEDS: Gabapentin 300 MG Cap PO SCH ×2 (06:18→13:14)
[2023-05-03] MEDS: Omeprazole 20 MG Cap.CR PO SCH ×2 (06:18→06:40)
[2023-05-03] MEDS ORDERED: Magnesium Sulfate/Water 2 GM in Premix Bag 1 BAG IV ONE (07:33)
[2023-05-03] MEDS ORDERED: Potassium Chloride 20 MEQ Tab.ER PO ONE ×2 (07:33→11:07)
[2023-05-03] MEDS: Escitalopram 10 MG Tab PO SCH (08:17)
[2023-05-03] MEDS: Diltiazem 120 MG Cap.CD PO SCH (08:17)
[2023-05-03] MEDS: Hydrochlorothiazide 25 MG Tab PO SCH (08:18)
[2023-05-03] MEDS: Potassium Chloride 100 ML IV SCH ×2 (08:42→10:40)
[2023-05-03] MEDS ORDERED: Losartan 50 MG Tab PO SCH (09:00)
[2023-05-03] MEDS: Apixaban 5 MG Tab PO SCH (10:39)
[2023-05-03 12:22] LABS: CALCIUM 8.6 mg/dL (8.5-10.1); CARBON DIOXIDE,CO2 28.4 mmol/L (21.0-32.0); CREATININE 0.8 mg/dL (0.6-1.0); EST CRCL DRUG DOSING (CG) 66.43 mL/min; POTASSIUM,K 3.2 mmol/L (3.5-5.1)
[2023-05-03 15:23] VITALS: PULSE 65
[2023-05-03 17:01] VITALS: BP 119/86
== END 2023-05-03 20:45 | disposition home health service (06) ==
LOC: MW.ED 19:16 → MW.MS 05-02 09:33
PROVIDERS: ADMIT Family Medicine; ATTEND Family Medicine
DX: G93.40 Encephalopathy, unspecified (principal); J44.9 Chronic obstructive pulmonary disease, unspecified; K21.9 Gastro-esophageal reflux disease without esophagitis; E78.00 Pure hypercholesterolemia, unspecified; F32.A Depression, unspecified; F19.90 Other psychoactive substance use, unspecified, uncomplicated; R41.82 Altered mental status, unspecified; Z86.73 Personal history of transient ischemic attack (TIA), and cerebral infarction without residual deficits; Z98.84 Bariatric surgery status; Z79.899 Other long term (current) drug therapy; W19.XXXA Unspecified fall, initial encounter
CPT/HCPCS: 36415; 70450; 71045; 71275; 74177; 80048; 80053; 80305; 80307; 81001; 82140; 82550; 82803; 82947; 83735; 83880; 84484; 85025; 85610; 93005; 96361; 96374; 96375; 97161; 97530; 99285; A9270; J0780; J3475; J3480; J3490; J7030; J7040; Q9967; 96365; 96366; 96367; 99284; G0378

== ENCOUNTER 2023-06-08 18:41 | Emergency (ER) | payer MEDICARE, MEDICAID ==
[2023-06-08] MEDS ORDERED: Sodium Chloride 0.9% 1,000 ML IV ONE (18:43)
[2023-06-08 18:52] LABS: BASOPHILS ABSOLUTE AUTO 0.05 K/uL (0.00-0.20); BASOPHILS PERCENT AUTO 0.3 % (0.0-1.0); HEMATOCRIT 41.4 % (37.0-47.0); HEMOGLOBIN 14.3 g/dL (12.0-16.0); IMMATURE GRAN ABSOLUTE AUTO 0.06 K/uL (0.00-0.05); IMMATURE GRAN PERCENT AUTO 0.4 % (0.0-0.4); LYMPHOCYTES ABSOLUTE AUTO 2.02 K/uL (1.00-4.80); LYMPHOCYTES PERCENT AUTO 13.9 % (24.0-44.0); MEAN CORPUSCULAR HEMOGLOBIN 30.5 pg (28.0-32.0); MEAN CORPUSCULAR HGB CONC 34.5 g/dL (32.0-36.0); MEAN CORPUSCULAR VOLUME 88.3 fL (83.0-99.0); MEAN PLATELET VOLUME 11.5 fL (9.4-12.3); MONOCYTES PERCENT AUTO 6.2 % (0.0-8.0); NEUTROPHILS ABSOLUTE AUTO 11.54 K/uL (1.80-7.70); NEUTROPHILS PERCENT AUTO 79.2 % (41.0-71.0); PLATELET COUNT,PLT 290 K/uL (150-400); RED BLOOD CELL COUNT 4.69 M/uL (4.10-5.30); WHITE BLOOD CELL COUNT,WBC 14.57 K/uL (3.9-11.3)
[2023-06-08 19:07] LABS: INR 1.07 (0.86-1.11); PTT,PARTIAL THROMBOPLSTIN TIME 28.8 SEC (23.9-30.7)
[2023-06-08 19:28] LABS: A/G RATIO 0.9 (0.9-1.6); ALANINE AMINOTRANSFERASE,ALT 17 IU/L (14-63); ALBUMIN 3.5 g/dL (3.4-5.0); ALKALINE PHOSPHATASE 156 U/L (46-116); ASPARTATE AMNIOTRANSFERASE,AST 41 IU/L (15-37); BILIRUBIN TOTAL 0.8 mg/dL (0.2-1.0); BLOOD UREA NITROGEN,BUN 14 mg/dL (7.0-18.0); CALCIUM 9.8 mg/dL (8.5-10.1); CHLORIDE,CL 104 mmol/L (98-107); EST CRCL DRUG DOSING (CG) 40.22 mL/min; GLUCOSE RANDOM 132 mg/dL (74-106); MAGNESIUM 1.7 mg/dL (1.8-2.4); POTASSIUM,K 3.1 mmol/L (3.5-5.1); PROTEIN TOTAL,TP 7.5 g/dL (6.4-8.2); SODIUM,NA 144 mmol/L (136-145); TSH ULTRASENSITIVE 0.48 uIU/mL (0.36-3.74)
[2023-06-08] MEDS ORDERED: Ondansetron 4 MG/2 ML SDV IVPUSH ONE (19:28)
[2023-06-08 19:30] LABS: ESTIMATED GFR 60 mL/min (>60)
[2023-06-08 19:31] LABS: ETHANOL BLOOD MEDICAL < 3.0 mg/dL
[2023-06-08 20:18] LABS: COLOR,URINE YELLOW; GLUCOSE,URINE NEGATIVE (NEGATIVE); KETONES,URINE 40 mg/dL (NEGATIVE); LEUKOCYTE ESTERASE,URINE NEGATIVE (NEGATIVE); NITRITE,URINE NEGATIVE (NEGATIVE); OCCULT BLOOD,URINE TRACE-INTACT (NEGATIVE); PH,URINE 6.5 (5.0-8.0); PROTEIN,URINE TRACE mg/dL (NEGATIVE)
[2023-06-08 20:19] LABS: APPEARANCE,URINE SLT CLOUDY; BILIRUBIN,URINE SMALL (NEGATIVE)
[2023-06-08] MEDS ORDERED: Aspirin 81 MG Tab.Chew PO ONE (20:22)
[2023-06-08 20:25] LABS: BACTERIA,URINE FEW (NEGATIVE); MUCUS,URINE MODERATE (NONE-MOD); SQUAMOUS EPITHELIAL CELLS,UR FEW; WBC,URINE 0-2 (0-5/HPF)
[2023-06-08] MEDS ORDERED: Tenecteplase 50 MG Kit IV STA (20:26)
[2023-06-08 20:28] LABS: AMPHETAMINES SCREEN, URINE NEGATIVE (CUTOFF=500); BARBITURATE SCREEN,URINE NEGATIVE (CUTOFF=200); BENZODIAZEPINES SCREEN,URINE PRESUMPTIVE POSITIVE (CUTOFF=150); BUPRENORPHINE SCREEN,URINE NEGATIVE (CUTOFF=10); METHADONE SCREEN, URINE NEGATIVE (CUTOFF=200); METHAMPHETAMINES SCREEN, URINE NEGATIVE (CUTOFF=500); OXYCODONE SCREEN,URINE NEGATIVE (CUT0FF=100); PCP SCREEN,URINE NEGATIVE (CUTOFF=25); THC SCREEN,URINE 20 NG/ML NEGATIVE (CUTOFF=50)
[2023-06-08] MEDS ORDERED: Heparin Sodium/0.45% NaCl 500 ML IV SCH (20:30)
[2023-06-08] MEDS ORDERED: Heparin Sodium 5,000 Units/ML Vial IVPUSH ONE (20:31)
[2023-06-08 21:44] VITALS: BP 125/74; PULSE 80
== END 2023-06-08 23:15 ==
LOC: MW.ED 18:41
DX: I21.3 ST elevation (STEMI) myocardial infarction of unspecified site (principal); W19.XXXA Unspecified fall, initial encounter
CPT/HCPCS: 36415; 70450; 71045; 72125; 72131; 72170; 73600; 80053; 80305; 80307; 81001; 82550; 83735; 84443; 84484; 85025; 85610; 85730; 92977; 96361; 96365; 96366; 96375; 99285; A9270; J1644; J2405; J3101; J7030; 93005; 93010; 99291

== ENCOUNTER 2023-12-23 17:00 | Emergency (ER) | payer MEDICARE ==
[2023-12-23] MEDS: Sodium Chloride 0.9% 1,000 ML IV STA (17:20)
[2023-12-23] MEDS: Metoclopramide 10 MG/2 ML SDV IVPUSH ONE (17:22)
[2023-12-23] MEDS: diphenhydrAMINE 50 MG/ML SDV IVPUSH ONE ×2 (17:22→18:57)
[2023-12-23 17:32] LABS: BASOPHILS ABSOLUTE AUTO 0.02 K/uL (0.00-0.20); BASOPHILS PERCENT AUTO 0.1 % (0.0-1.0); HEMATOCRIT 45.5 % (37.0-47.0); HEMOGLOBIN 15.5 g/dL (12.0-16.0); IMMATURE GRAN ABSOLUTE AUTO 0.06 K/uL (0.00-0.05); IMMATURE GRAN PERCENT AUTO 0.4 % (0.0-0.4); LYMPHOCYTES PERCENT AUTO 8.3 % (24.0-44.0); MEAN CORPUSCULAR HEMOGLOBIN 30.2 pg (28.0-32.0); MEAN CORPUSCULAR HGB CONC 34.1 g/dL (32.0-36.0); MEAN CORPUSCULAR VOLUME 88.5 fL (83.0-99.0); MONOCYTES PERCENT AUTO 1.4 % (0.0-8.0); NEUTROPHILS ABSOLUTE AUTO 13.04 K/uL (1.80-7.70); NEUTROPHILS PERCENT AUTO 89.8 % (41.0-71.0); PLATELET COUNT,PLT 241 K/uL (150-400); RED BLOOD CELL COUNT 5.14 M/uL (4.10-5.30); WHITE BLOOD CELL COUNT,WBC 14.52 K/uL (3.9-11.3)
[2023-12-23 18:43] LABS: BILIRUBIN TOTAL 0.8 mg/dL (0.2-1.0); CALCIUM 9.8 mg/dL (8.5-10.1); CARBON DIOXIDE,CO2 25.3 mmol/L (21.0-32.0); CREATININE 0.8 mg/dL (0.6-1.0); EST CRCL DRUG DOSING (CG) 57.2 mL/min; MAGNESIUM 1.7 mg/dL (1.8-2.4); POTASSIUM,K 3.3 mmol/L (3.5-5.1)
[2023-12-23] MEDS: Acetaminophen 500 MG Tab PO ONE (19:18)
[2023-12-23] MEDS: Magnesium Oxide 400 MG Tab PO ONE (20:42)
[2023-12-23 20:49] VITALS: BP 149/86; PULSE 86
== END 2023-12-23 20:49 | disposition home or self-care (01) ==
LOC: MW.ED 17:00
DX: R51.9 Headache, unspecified (principal); I10 Essential (primary) hypertension; K21.9 Gastro-esophageal reflux disease without esophagitis; E78.00 Pure hypercholesterolemia, unspecified; E66.9 Obesity, unspecified; Z88.5 Allergy status to narcotic agent; Z88.8 Allergy status to other drugs, medicaments and biological substances; Z79.899 Other long term (current) drug therapy; Z90.49 Acquired absence of other specified parts of digestive tract; Z68.26 Body mass index [BMI] 26.0-26.9, adult; Z75.8 Other problems related to medical facilities and other health care
CPT/HCPCS: 36415; 70450; 80053; 83735; 85025; 96361; 96374; 96375; 96376; 99285; A9270; J1200; J2765; J7030; 99284

== ENCOUNTER 2024-01-02 18:26 | Emergency (ER) | payer MEDICARE ==
[2024-01-02 18:32] VITALS: BP 185/78; PULSE 66
[2024-01-02] MEDS: Sodium Chloride 0.9% 1,000 ML IV ONE (19:45)
[2024-01-02] MEDS: Prochlorperazine 10 MG/2 ML SDV IVPUSH ONE (19:45)
[2024-01-02 19:54] LABS: BASOPHILS ABSOLUTE AUTO 0.04 K/uL (0.00-0.20); BASOPHILS PERCENT AUTO 0.5 % (0.0-1.0); EOSINOPHILS ABSOLUTE AUTO 0.11 K/uL (0.00-0.45); EOSINOPHILS PERCENT AUTO 1.4 % (0.0-6.0); HEMATOCRIT 39.5 % (37.0-47.0); IMMATURE GRAN ABSOLUTE AUTO 0.03 K/uL (0.00-0.05); IMMATURE GRAN PERCENT AUTO 0.4 % (0.0-0.4); LYMPHOCYTES ABSOLUTE AUTO 2.44 K/uL (1.00-4.80); LYMPHOCYTES PERCENT AUTO 31.4 % (24.0-44.0); MEAN CORPUSCULAR HEMOGLOBIN 29.9 pg (28.0-32.0); MEAN CORPUSCULAR HGB CONC 32.9 g/dL (32.0-36.0); MEAN CORPUSCULAR VOLUME 90.8 fL (83.0-99.0); MEAN PLATELET VOLUME 12.2 fL (9.4-12.3); MONOCYTES ABSOLUTE AUTO 0.63 K/uL (0.00-0.80); MONOCYTES PERCENT AUTO 8.1 % (0.0-8.0); NEUTROPHILS ABSOLUTE AUTO 4.53 K/uL (1.80-7.70); NEUTROPHILS PERCENT AUTO 58.2 % (41.0-71.0); PLATELET COUNT,PLT 236 K/uL (150-400); RED BLOOD CELL COUNT 4.35 M/uL (4.10-5.30); WHITE BLOOD CELL COUNT,WBC 7.78 K/uL (3.9-11.3)
[2024-01-02 20:23] LABS: A/G RATIO 0.9 (0.9-1.6); ALANINE AMINOTRANSFERASE,ALT 20 IU/L (14-63); ALBUMIN 3.4 g/dL (3.4-5.0); ALKALINE PHOSPHATASE 136 U/L (46-116); ASPARTATE AMNIOTRANSFERASE,AST 20 IU/L (15-37); BILIRUBIN TOTAL 0.6 mg/dL (0.2-1.0); BLOOD UREA NITROGEN,BUN 10 mg/dL (7.0-18.0); CALCIUM 8.7 mg/dL (8.5-10.1); CARBON DIOXIDE,CO2 28.7 mmol/L (21.0-32.0); CHLORIDE,CL 104 mmol/L (98-107); CREATININE 0.8 mg/dL (0.6-1.0); GLUCOSE RANDOM 99 mg/dL (74-106); MAGNESIUM 1.7 mg/dL (1.8-2.4); POTASSIUM,K 3.9 mmol/L (3.5-5.1); SODIUM,NA 139 mmol/L (136-145)
[2024-01-02] MEDS: Acetaminophen 500 MG Tab PO ONE (20:27)
[2024-01-02 20:33] LABS: CORONAVIRUS COVID-19 NAA NEGATIVE (NEGATIVE); INFLUENZA A NAA NEGATIVE (NEGATIVE); INFLUENZA B NAA NEGATIVE (NEGATIVE); RESPIRATORY SYNCYTIAL VIR NAA NEGATIVE (NEGATIVE)
[2024-01-02 20:44] LABS: ESTIMATED GFR 78 mL/min (>60)
[2024-01-02] MEDS: Acetaminophen/HYDROcodone 325-5 MG Tab PO ONE (20:51)
== END 2024-01-02 22:40 | disposition home or self-care (01) ==
LOC: MW.ED 18:26
DX: R51.9 Headache, unspecified (principal); I10 Essential (primary) hypertension; I48.91 Unspecified atrial fibrillation; J44.9 Chronic obstructive pulmonary disease, unspecified; K21.9 Gastro-esophageal reflux disease without esophagitis; E66.9 Obesity, unspecified; Z90.49 Acquired absence of other specified parts of digestive tract; Z79.899 Other long term (current) drug therapy; Z79.01 Long term (current) use of anticoagulants; Z88.5 Allergy status to narcotic agent; Z88.8 Allergy status to other drugs, medicaments and biological substances; Z88.4 Allergy status to anesthetic agent; Z75.8 Other problems related to medical facilities and other health care
CPT/HCPCS: 0241U; 36415; 70450; 80053; 83735; 85025; 96361; 96374; 99285; A9270; J0780; J7030; 99284

== ENCOUNTER 2024-01-17 18:32 | Emergency (ER) | payer MEDICAID, MEDICARE, OTHER ==
[2024-01-17 18:43] LABS: BASOPHILS ABSOLUTE AUTO 0.05 K/uL (0.00-0.20); BASOPHILS PERCENT AUTO 0.7 % (0.0-1.0); EOSINOPHILS ABSOLUTE AUTO 0.13 K/uL (0.00-0.45); EOSINOPHILS PERCENT AUTO 1.8 % (0.0-6.0); HEMATOCRIT 34.4 % (37.0-47.0); HEMOGLOBIN 11.1 g/dL (12.0-16.0); IMMATURE GRAN ABSOLUTE AUTO 0.04 K/uL (0.00-0.05); IMMATURE GRAN PERCENT AUTO 0.5 % (0.0-0.4); LYMPHOCYTES ABSOLUTE AUTO 1.92 K/uL (1.00-4.80); LYMPHOCYTES PERCENT AUTO 25.9 % (24.0-44.0); MEAN CORPUSCULAR HEMOGLOBIN 29.8 pg (28.0-32.0); MEAN CORPUSCULAR HGB CONC 32.3 g/dL (32.0-36.0); MEAN CORPUSCULAR VOLUME 92.2 fL (83.0-99.0); MONOCYTES ABSOLUTE AUTO 0.52 K/uL (0.00-0.80); NEUTROPHILS ABSOLUTE AUTO 4.74 K/uL (1.80-7.70); NEUTROPHILS PERCENT AUTO 64.1 % (41.0-71.0); PLATELET COUNT,PLT 213 K/uL (150-400); RED BLOOD CELL COUNT 3.73 M/uL (4.10-5.30)
[2024-01-17 19:05] LABS: A/G RATIO 0.9 (0.9-1.6); ALBUMIN 2.6 g/dL (3.4-5.0); BILIRUBIN TOTAL 0.2 mg/dL (0.2-1.0); CALCIUM 7.8 mg/dL (8.5-10.1); CARBON DIOXIDE,CO2 29.8 mmol/L (21.0-32.0); CREATININE 0.8 mg/dL (0.6-1.0); EST CRCL DRUG DOSING (CG) 57.2 mL/min; POTASSIUM,K 3.1 mmol/L (3.5-5.1); PROTEIN TOTAL,TP 5.6 g/dL (6.4-8.2)
[2024-01-17 19:33] VITALS: PULSE 60
[2024-01-17 19:53] LABS: BILIRUBIN,URINE NEGATIVE (NEGATIVE); COLOR,URINE YELLOW; GLUCOSE,URINE NEGATIVE (NEGATIVE); KETONES,URINE NEGATIVE (NEGATIVE); LEUKOCYTE ESTERASE,URINE TRACE (NEGATIVE); NITRITE,URINE POSITIVE (NEGATIVE); OCCULT BLOOD,URINE NEGATIVE (NEGATIVE); PROTEIN,URINE NEGATIVE (NEGATIVE)
[2024-01-17 20:03] LABS: AMPHETAMINES SCREEN, URINE NEGATIVE (CUTOFF=500); BARBITURATE SCREEN,URINE NEGATIVE (CUTOFF=200); BENZODIAZEPINES SCREEN,URINE PRESUMPTIVE POSITIVE (CUTOFF=150); BUPRENORPHINE SCREEN,URINE NEGATIVE (CUTOFF=10); METHADONE SCREEN, URINE NEGATIVE (CUTOFF=200); METHAMPHETAMINES SCREEN, URINE NEGATIVE (CUTOFF=500); OXYCODONE SCREEN,URINE NEGATIVE (CUT0FF=100); PCP SCREEN,URINE NEGATIVE (CUTOFF=25); THC SCREEN,URINE 20 NG/ML NEGATIVE (CUTOFF=50)
[2024-01-17 20:04] LABS: APPEARANCE,URINE SLT CLOUDY
[2024-01-17 20:05] LABS: BACTERIA,URINE 4+ (NEGATIVE); EPITHELIAL CELLS,URINE MODERATE (NONE-FEW); RBC,URINE 0-1 (0-2/HPF)
[2024-01-17] MEDS: cefTRIAXone 2 GM in Sodium Chloride 0.9% 50 ML IV ONE (21:36)
[2024-01-18] MEDS: Sodium Chloride 0.9% 10 ML Syringe FLUSH PRN (00:27)
[2024-01-18] MEDS: Sodium Chloride 0.9% 2.5 ML Syringe FLUSH PRN (00:27)
[2024-01-18 07:26] VITALS: BP 125/55
== END 2024-01-18 07:50 | disposition home or self-care (01) ==
LOC: MW.ED 18:32
DX: R41.82 Altered mental status, unspecified (principal); N30.00 Acute cystitis without hematuria; F11.10 Opioid abuse, uncomplicated; F13.10 Sedative, hypnotic or anxiolytic abuse, uncomplicated; I10 Essential (primary) hypertension; I48.91 Unspecified atrial fibrillation; K21.9 Gastro-esophageal reflux disease without esophagitis; J44.9 Chronic obstructive pulmonary disease, unspecified; E66.9 Obesity, unspecified; Z95.0 Presence of cardiac pacemaker; Z79.01 Long term (current) use of anticoagulants; Z90.49 Acquired absence of other specified parts of digestive tract; Z79.899 Other long term (current) drug therapy; Z88.5 Allergy status to narcotic agent; Z88.6 Allergy status to analgesic agent; Z88.4 Allergy status to anesthetic agent; Z88.8 Allergy status to other drugs, medicaments and biological substances; Z75.8 Other problems related to medical facilities and other health care; Z68.28 Body mass index [BMI] 28.0-28.9, adult
CPT/HCPCS: 36415; 70450; 72125; 80053; 80305; 80307; 81001; 85025; 96365; 99284; J0696; J3490; 99285

== ENCOUNTER 2024-02-20 11:45 | Emergency (ER) | payer MEDICARE ==
[2024-02-20 12:02] LABS: BASOPHILS ABSOLUTE AUTO 0.03 K/uL (0.00-0.20); BASOPHILS PERCENT AUTO 0.3 % (0.0-1.0); HEMATOCRIT 39.3 % (37.0-47.0); IMMATURE GRAN ABSOLUTE AUTO 0.04 K/uL (0.00-0.05); IMMATURE GRAN PERCENT AUTO 0.4 % (0.0-0.4); LYMPHOCYTES ABSOLUTE AUTO 1.13 K/uL (1.00-4.80); LYMPHOCYTES PERCENT AUTO 12.2 % (24.0-44.0); MEAN CORPUSCULAR HEMOGLOBIN 29.5 pg (28.0-32.0); MEAN CORPUSCULAR HGB CONC 33.1 g/dL (32.0-36.0); MEAN CORPUSCULAR VOLUME 89.1 fL (83.0-99.0); MEAN PLATELET VOLUME 11.4 fL (9.4-12.3); MONOCYTES ABSOLUTE AUTO 0.14 K/uL (0.00-0.80); MONOCYTES PERCENT AUTO 1.5 % (0.0-8.0); NEUTROPHILS ABSOLUTE AUTO 7.95 K/uL (1.80-7.70); NEUTROPHILS PERCENT AUTO 85.6 % (41.0-71.0); PLATELET COUNT,PLT 252 K/uL (150-400); RED BLOOD CELL COUNT 4.41 M/uL (4.10-5.30); WHITE BLOOD CELL COUNT,WBC 9.29 K/uL (3.9-11.3)
[2024-02-20] MEDS: Sodium Chloride 0.9% 500 ML IV SCH (12:04)
[2024-02-20] MEDS: Sodium Chloride 0.9% 10 ML Syringe FLUSH PRN (12:04)
[2024-02-20] MEDS: Ondansetron 4 MG/2 ML SDV IVPUSH ONE (12:05)
[2024-02-20] MEDS: Sodium Chloride 0.9% 2.5 ML Syringe FLUSH PRN (12:05)
[2024-02-20] MEDS: Famotidine 20 MG/2 ML SDV IVPUSH ONE (12:05)
[2024-02-20 12:33] LABS: A/G RATIO 0.9 (0.9-1.6); ALANINE AMINOTRANSFERASE,ALT 11 IU/L (14-63); ALBUMIN 3.5 g/dL (3.4-5.0); ALKALINE PHOSPHATASE 156 U/L (46-116); ASPARTATE AMNIOTRANSFERASE,AST 15 IU/L (15-37); BILIRUBIN TOTAL 0.6 mg/dL (0.2-1.0); BLOOD UREA NITROGEN,BUN 13 mg/dL (7.0-18.0); CALCIUM 9.1 mg/dL (8.5-10.1); CARBON DIOXIDE,CO2 25.4 mmol/L (21.0-32.0); CHLORIDE,CL 104 mmol/L (98-107); CREATININE 0.8 mg/dL (0.6-1.0); GLUCOSE RANDOM 140 mg/dL (74-106); LIPASE 12 U/L (16-77); POTASSIUM,K 2.8 mmol/L (3.5-5.1); PROTEIN TOTAL,TP 7.3 g/dL (6.4-8.2); SODIUM,NA 140 mmol/L (136-145)
[2024-02-20 12:36] LABS: ESTIMATED GFR 78 mL/min (>60)
[2024-02-20] MEDS: Potassium Chloride 20 MEQ Tab.ER PO ONE (13:08)
[2024-02-20] MEDS: Acetaminophen/HYDROcodone 325-5 MG Tab PO ONE (13:24)
[2024-02-20 18:00] VITALS: BP 160/86; PULSE 78
== END 2024-02-20 17:59 | disposition home or self-care (01) ==
LOC: MW.ED 11:45
DX: R11.2 Nausea with vomiting, unspecified (principal); I10 Essential (primary) hypertension; I48.91 Unspecified atrial fibrillation; J44.9 Chronic obstructive pulmonary disease, unspecified; K21.9 Gastro-esophageal reflux disease without esophagitis; E66.9 Obesity, unspecified; Z86.73 Personal history of transient ischemic attack (TIA), and cerebral infarction without residual deficits; Z75.8 Other problems related to medical facilities and other health care; Z79.01 Long term (current) use of anticoagulants; Z79.899 Other long term (current) drug therapy; Z88.5 Allergy status to narcotic agent; Z88.8 Allergy status to other drugs, medicaments and biological substances
CPT/HCPCS: 36415; 80053; 83690; 85025; 96361; 96374; 96375; 99285; A9270; J2405; J3490; J7040; 99284

== ENCOUNTER → 2024-03-24 | Emergency (ER) | payer MEDICARE ==
[2024-03-24 13:32] LABS: BASOPHILS ABSOLUTE AUTO 0.05 K/uL (0.00-0.20); BASOPHILS PERCENT AUTO 0.5 % (0.0-1.0); EOSINOPHILS ABSOLUTE AUTO 0.12 K/uL (0.00-0.45); EOSINOPHILS PERCENT AUTO 1.1 % (0.0-6.0); HEMATOCRIT 36.4 % (37.0-47.0); HEMOGLOBIN 12.2 g/dL (12.0-16.0); IMMATURE GRAN ABSOLUTE AUTO 0.04 K/uL (0.00-0.05); IMMATURE GRAN PERCENT AUTO 0.4 % (0.0-0.4); LYMPHOCYTES ABSOLUTE AUTO 1.98 K/uL (1.00-4.80); LYMPHOCYTES PERCENT AUTO 18.2 % (24.0-44.0); MEAN CORPUSCULAR HEMOGLOBIN 30.2 pg (28.0-32.0); MEAN CORPUSCULAR HGB CONC 33.5 g/dL (32.0-36.0); MEAN CORPUSCULAR VOLUME 90.1 fL (83.0-99.0); MONOCYTES PERCENT AUTO 6.4 % (0.0-8.0); NEUTROPHILS ABSOLUTE AUTO 7.97 K/uL (1.80-7.70); NEUTROPHILS PERCENT AUTO 73.4 % (41.0-71.0); PLATELET COUNT,PLT 233 K/uL (150-400); RED BLOOD CELL COUNT 4.04 M/uL (4.10-5.30); WHITE BLOOD CELL COUNT,WBC 10.86 K/uL (3.9-11.3)
[2024-03-24 13:47] LABS: ALBUMIN 3.6 g/dL (3.4-5.0); BILIRUBIN TOTAL 0.9 mg/dL (0.2-1.0); CALCIUM 9.1 mg/dL (8.5-10.1); CARBON DIOXIDE,CO2 27.5 mmol/L (21.0-32.0); EST CRCL DRUG DOSING (CG) 43.91 mL/min; PROTEIN TOTAL,TP 7.2 g/dL (6.4-8.2)
[2024-03-24 14:19] LABS: INR 1.12 (0.86-1.11); PTT,PARTIAL THROMBOPLSTIN TIME 31.5 SEC (23.9-30.7)
[2024-03-24 16:14] VITALS: BP 132/84; PULSE 88
== END | disposition home or self-care (01) ==
LOC: MW.ED 12:01
DX: S09.90XA Unspecified injury of head, initial encounter (principal); M25.551 Pain in right hip; M25.512 Pain in left shoulder; M25.532 Pain in left wrist; M54.9 Dorsalgia, unspecified; I10 Essential (primary) hypertension; J44.9 Chronic obstructive pulmonary disease, unspecified; K21.9 Gastro-esophageal reflux disease without esophagitis; E66.9 Obesity, unspecified; Z68.27 Body mass index [BMI] 27.0-27.9, adult; Z86.73 Personal history of transient ischemic attack (TIA), and cerebral infarction without residual deficits; Z90.49 Acquired absence of other specified parts of digestive tract; Z96.641 Presence of right artificial hip joint; Z88.5 Allergy status to narcotic agent; Z88.8 Allergy status to other drugs, medicaments and biological substances; Z88.4 Allergy status to anesthetic agent; Z79.01 Long term (current) use of anticoagulants; Z79.899 Other long term (current) drug therapy; Z75.8 Other problems related to medical facilities and other health care; W01.10XA Fall on same level from slipping, tripping and stumbling with subsequent striking against unspecified object, initial encounter
CPT/HCPCS: 36415; 70450; 70450-26; 71045; 71045-26; 72125; 72125-26; 72128; 72128-26; 72131-26; 73030-26-LT; 73030-LT; 73090-26-LT; 73090-LT; 73552-26-LT; 73552-RT; 74176; 74176-26; 80053; 85025; 85610; 85730; 99284

== ENCOUNTER 2024-06-09 08:57 | Observation (INO) | payer MEDICARE ==
[2024-06-09] MEDS: Sodium Chloride 0.9% 1,000 ML IV ONE (10:19)
[2024-06-09] MEDS: Alum Hydrox/Mag Hydrox/Simeth 15 ML, Lidocaine 2% 5 ML PO ONE (10:23)
[2024-06-09 10:32] LABS: BASOPHILS ABSOLUTE AUTO 0.07 K/uL (0.00-0.20); BASOPHILS PERCENT AUTO 0.6 % (0.0-1.0); EOSINOPHILS ABSOLUTE AUTO 0.06 K/uL (0.00-0.45); EOSINOPHILS PERCENT AUTO 0.5 % (0.0-6.0); HEMATOCRIT 37.6 % (37.0-47.0); HEMOGLOBIN 12.4 g/dL (12.0-16.0); IMMATURE GRAN ABSOLUTE AUTO 0.06 K/uL (0.00-0.05); IMMATURE GRAN PERCENT AUTO 0.5 % (0.0-0.4); LYMPHOCYTES ABSOLUTE AUTO 1.13 K/uL (1.00-4.80); LYMPHOCYTES PERCENT AUTO 9.6 % (24.0-44.0); MEAN CORPUSCULAR HEMOGLOBIN 30.2 pg (28.0-32.0); MEAN CORPUSCULAR VOLUME 91.7 fL (83.0-99.0); MEAN PLATELET VOLUME 11.5 fL (9.4-12.3); MONOCYTES ABSOLUTE AUTO 0.29 K/uL (0.00-0.80); MONOCYTES PERCENT AUTO 2.5 % (0.0-8.0); NEUTROPHILS ABSOLUTE AUTO 10.19 K/uL (1.80-7.70); NEUTROPHILS PERCENT AUTO 86.3 % (41.0-71.0); PLATELET COUNT,PLT 235 K/uL (150-400)
[2024-06-09 11:21] LABS: A/G RATIO 0.9 (0.9-1.6); ALBUMIN 3.3 g/dL (3.4-5.0); BILIRUBIN TOTAL 0.5 mg/dL (0.2-1.0); CALCIUM 8.8 mg/dL (8.5-10.1); CARBON DIOXIDE,CO2 26.3 mmol/L (21.0-32.0); CREATININE 0.9 mg/dL (0.6-1.0); EST CRCL DRUG DOSING (CG) 50.09 mL/min; MAGNESIUM 1.7 mg/dL (1.8-2.4); POTASSIUM,K 3.1 mmol/L (3.5-5.1); PROTEIN TOTAL,TP 6.9 g/dL (6.4-8.2)
[2024-06-09] MEDS: Ondansetron 4 MG/2 ML SDV IVPUSH ONE ×2 (11:46→14:52)
[2024-06-09] MEDS: Iopamidol 755 MG/ML 500 ML Multipack Bottle IVPUSH STA (13:28)
[2024-06-09] MEDS: Potassium Chloride 20 MEQ Tab.ER PO ONE (13:29)
[2024-06-09] MEDS: Magnesium Oxide 400 MG Tab PO ONE (13:30)
[2024-06-09] MEDS ORDERED: Ketorolac 30 MG/ML SDV IM PRN (15:31)
[2024-06-09] MEDS ORDERED: Sennosides/Docusate Sodium 50-8.6 MG Tab PO PRN (15:31)
[2024-06-09] MEDS ORDERED: Acetaminophen 325 MG Tab PO PRN (15:31)
[2024-06-09] MEDS ORDERED: Polyethylene Glycol 3350 Powder 17 GM Packet PO PRN (15:31)
[2024-06-09] MEDS: hydrALAZINE 25 MG Tab PO SCH (17:11)
[2024-06-09 20:00] LABS: APPEARANCE,URINE CLEAR; BILIRUBIN,URINE NEGATIVE (NEGATIVE); COLOR,URINE YELLOW; GLUCOSE,URINE NEGATIVE (NEGATIVE); KETONES,URINE NEGATIVE (NEGATIVE); LEUKOCYTE ESTERASE,URINE NEGATIVE (NEGATIVE); NITRITE,URINE NEGATIVE (NEGATIVE); OCCULT BLOOD,URINE NEGATIVE (NEGATIVE); PH,URINE 6.5 (5.0-8.0); PROTEIN,URINE NEGATIVE (NEGATIVE)
[2024-06-09] MEDS: Acetaminophen/HYDROcodone 325-10 MG Tab PO PRN (20:40)
[2024-06-09] MEDS: Apixaban 5 MG Tab PO SCH (20:40)
[2024-06-09] MEDS ORDERED: Non-Formulary Medication 1 Each (Gabapentin 600 MG Tablet) PO SCH (22:00)
[2024-06-10 05:55] LABS: BASOPHILS ABSOLUTE AUTO 0.03 K/uL (0.00-0.20); BASOPHILS PERCENT AUTO 0.3 % (0.0-1.0); EOSINOPHILS ABSOLUTE AUTO 0.03 K/uL (0.00-0.45); EOSINOPHILS PERCENT AUTO 0.3 % (0.0-6.0); HEMATOCRIT 33.8 % (37.0-47.0); HEMOGLOBIN 11.1 g/dL (12.0-16.0); IMMATURE GRAN ABSOLUTE AUTO 0.03 K/uL (0.00-0.05); IMMATURE GRAN PERCENT AUTO 0.3 % (0.0-0.4); LYMPHOCYTES ABSOLUTE AUTO 2.28 K/uL (1.00-4.80); LYMPHOCYTES PERCENT AUTO 23.6 % (24.0-44.0); MEAN CORPUSCULAR HEMOGLOBIN 29.9 pg (28.0-32.0); MEAN CORPUSCULAR HGB CONC 32.8 g/dL (32.0-36.0); MEAN CORPUSCULAR VOLUME 91.1 fL (83.0-99.0); MEAN PLATELET VOLUME 12.3 fL (9.4-12.3); MONOCYTES ABSOLUTE AUTO 0.67 K/uL (0.00-0.80); MONOCYTES PERCENT AUTO 6.9 % (0.0-8.0); NEUTROPHILS ABSOLUTE AUTO 6.64 K/uL (1.80-7.70); NEUTROPHILS PERCENT AUTO 68.6 % (41.0-71.0); PLATELET COUNT,PLT 216 K/uL (150-400); RED BLOOD CELL COUNT 3.71 M/uL (4.10-5.30); WHITE BLOOD CELL COUNT,WBC 9.68 K/uL (3.9-11.3)
[2024-06-10 06:23] LABS: A/G RATIO 0.8 (0.9-1.6); ALANINE AMINOTRANSFERASE,ALT 12 IU/L (14-63); ALBUMIN 2.7 g/dL (3.4-5.0); ALKALINE PHOSPHATASE 120 U/L (46-116); ASPARTATE AMNIOTRANSFERASE,AST 6 IU/L (15-37); BILIRUBIN TOTAL 0.5 mg/dL (0.2-1.0); BLOOD UREA NITROGEN,BUN 12 mg/dL (7.0-18.0); CALCIUM 8.5 mg/dL (8.5-10.1); CARBON DIOXIDE,CO2 26.2 mmol/L (21.0-32.0); CHLORIDE,CL 107 mmol/L (98-107); CREATININE 0.8 mg/dL (0.6-1.0); GLUCOSE RANDOM 97 mg/dL (74-106); PROTEIN TOTAL,TP 5.9 g/dL (6.4-8.2); SODIUM,NA 141 mmol/L (136-145)
[2024-06-10 06:25] LABS: ESTIMATED GFR 78 mL/min (>60)
[2024-06-10] MEDS: Losartan 50 MG Tab PO SCH (09:45)
[2024-06-10] MEDS: Escitalopram 10 MG Tab PO SCH (09:46)
[2024-06-10] MEDS: Hydrochlorothiazide 25 MG Tab PO SCH (09:46)
[2024-06-10] MEDS: Metoprolol Succinate 100 MG Tab.ER PO SCH (09:46)
[2024-06-10] MEDS: Ondansetron 4 MG/2 ML SDV IVPUSH PRN (09:59)
[2024-06-10] MEDS ORDERED: Potassium Chloride 10 MEQ in Premix Bag 1 BAG IV SCH (10:15)
[2024-06-10] MEDS: Sodium Chloride 0.9% 1,000 ML IV ONE (10:27)
[2024-06-10] MEDS: NS with KCl 40mEq 1,000 ML IV SCH (10:56)
[2024-06-10 18:41] LABS: CORONAVIRUS COVID-19 NAA NEGATIVE (NEGATIVE); INFLUENZA A NAA NEGATIVE (NEGATIVE); INFLUENZA B NAA NEGATIVE (NEGATIVE)
[2024-06-10] MEDS: LORazepam 1 MG Tab PO PRN (22:27)
[2024-06-11] MEDS: Melatonin 3 MG Tab PO PRN (01:24)
[2024-06-11 05:44] LABS: BASOPHILS ABSOLUTE AUTO 0.07 K/uL (0.00-0.20); BASOPHILS PERCENT AUTO 0.7 % (0.0-1.0); EOSINOPHILS ABSOLUTE AUTO 0.14 K/uL (0.00-0.45); EOSINOPHILS PERCENT AUTO 1.4 % (0.0-6.0); HEMATOCRIT 36.1 % (37.0-47.0); IMMATURE GRAN ABSOLUTE AUTO 0.06 K/uL (0.00-0.05); IMMATURE GRAN PERCENT AUTO 0.6 % (0.0-0.4); LYMPHOCYTES ABSOLUTE AUTO 2.65 K/uL (1.00-4.80); LYMPHOCYTES PERCENT AUTO 27.2 % (24.0-44.0); MEAN CORPUSCULAR HEMOGLOBIN 30.7 pg (28.0-32.0); MEAN CORPUSCULAR HGB CONC 33.2 g/dL (32.0-36.0); MEAN CORPUSCULAR VOLUME 92.3 fL (83.0-99.0); MEAN PLATELET VOLUME 12.1 fL (9.4-12.3); MONOCYTES ABSOLUTE AUTO 0.72 K/uL (0.00-0.80); MONOCYTES PERCENT AUTO 7.4 % (0.0-8.0); NEUTROPHILS ABSOLUTE AUTO 6.12 K/uL (1.80-7.70); NEUTROPHILS PERCENT AUTO 62.7 % (41.0-71.0); PLATELET COUNT,PLT 236 K/uL (150-400); RED BLOOD CELL COUNT 3.91 M/uL (4.10-5.30); WHITE BLOOD CELL COUNT,WBC 9.76 K/uL (3.9-11.3)
[2024-06-11 06:17] LABS: A/G RATIO 0.9 (0.9-1.6); ALANINE AMINOTRANSFERASE,ALT 12 IU/L (14-63); ALBUMIN 3.1 g/dL (3.4-5.0); ALKALINE PHOSPHATASE 130 U/L (46-116); ASPARTATE AMNIOTRANSFERASE,AST 10 IU/L (15-37); BILIRUBIN TOTAL 0.4 mg/dL (0.2-1.0); BLOOD UREA NITROGEN,BUN 13 mg/dL (7.0-18.0); CALCIUM 8.7 mg/dL (8.5-10.1); CARBON DIOXIDE,CO2 25.9 mmol/L (21.0-32.0); CHLORIDE,CL 106 mmol/L (98-107); CREATININE 0.9 mg/dL (0.6-1.0); GLUCOSE RANDOM 88 mg/dL (74-106); POTASSIUM,K 3.4 mmol/L (3.5-5.1); PROTEIN TOTAL,TP 6.6 g/dL (6.4-8.2); SODIUM,NA 141 mmol/L (136-145)
[2024-06-11 06:19] LABS: ESTIMATED GFR 68 mL/min (>60)
[2024-06-11 10:48] LABS: MAGNESIUM 1.8 mg/dL (1.8-2.4); PHOSPHORUS 3.5 mg/dL (2.6-4.7)
[2024-06-11 11:57] VITALS: BP 136/97; PULSE 67
[2024-06-11] MEDS: Cyclobenzaprine 10 MG Tab PO PRN (12:40)
== END 2024-06-11 15:20 | disposition home or self-care (01) ==
LOC: MW.ED 08:57 → MW.MS 14:45
PROVIDERS: ADMIT Internal Medicine; ATTEND Internal Medicine
DX: R11.2 Nausea with vomiting, unspecified (principal); R10.9 Unspecified abdominal pain; I48.91 Unspecified atrial fibrillation; K21.9 Gastro-esophageal reflux disease without esophagitis; E78.00 Pure hypercholesterolemia, unspecified; I10 Essential (primary) hypertension; E66.9 Obesity, unspecified; Z79.01 Long term (current) use of anticoagulants; Z88.5 Allergy status to narcotic agent; Z88.8 Allergy status to other drugs, medicaments and biological substances; Z68.30 Body mass index [BMI] 30.0-30.9, adult; Z79.899 Other long term (current) drug therapy; Z20.822 Contact with and (suspected) exposure to COVID-19; Z91.81 History of falling
CPT/HCPCS: 0240U; 36415; 70450; 74177; 80053; 81003; 83690; 83735; 84100; 84484; 85025; 96361; 96365; 96366; 96376; 99285; A9270; G0378; J2405; J3480; J7030; Q9967; 96374; 99222; 99232; 99239; 99283

== ENCOUNTER 2024-10-18 10:36 | Observation (INO) | payer SELFPAY ==
[2024-10-18 11:31] LABS: BASOPHILS ABSOLUTE AUTO 0.04 K/uL (0.00-0.20); BASOPHILS PERCENT AUTO 0.3 % (0.0-1.0); EOSINOPHILS ABSOLUTE AUTO 0.13 K/uL (0.00-0.45); HEMOGLOBIN 13.6 g/dL (12.0-16.0); IMMATURE GRAN ABSOLUTE AUTO 0.04 K/uL (0.00-0.05); IMMATURE GRAN PERCENT AUTO 0.3 % (0.0-0.4); LYMPHOCYTES ABSOLUTE AUTO 1.63 K/uL (1.00-4.80); LYMPHOCYTES PERCENT AUTO 12.2 % (24.0-44.0); MEAN CORPUSCULAR HEMOGLOBIN 30.2 pg (28.0-32.0); MEAN CORPUSCULAR HGB CONC 33.2 g/dL (32.0-36.0); MEAN CORPUSCULAR VOLUME 90.9 fL (83.0-99.0); MEAN PLATELET VOLUME 11.2 fL (9.4-12.3); MONOCYTES ABSOLUTE AUTO 0.54 K/uL (0.00-0.80); NEUTROPHILS ABSOLUTE AUTO 11.01 K/uL (1.80-7.70); NEUTROPHILS PERCENT AUTO 82.2 % (41.0-71.0); PLATELET COUNT,PLT 291 K/uL (150-400); RED BLOOD CELL COUNT 4.51 M/uL (4.10-5.30); WHITE BLOOD CELL COUNT,WBC 13.39 K/uL (3.9-11.3)
[2024-10-18 11:45] LABS: INR 1.03 (0.86-1.11); PTT,PARTIAL THROMBOPLSTIN TIME 31.7 SEC (23.9-30.7)
[2024-10-18 12:04] LABS: A/G RATIO 0.9 (0.9-1.6); ALANINE AMINOTRANSFERASE,ALT 22 IU/L (14-63); ALBUMIN 3.6 g/dL (3.4-5.0); ALKALINE PHOSPHATASE 160 U/L (46-116); ASPARTATE AMNIOTRANSFERASE,AST 20 IU/L (15-37); BILIRUBIN TOTAL 0.4 mg/dL (0.2-1.0); BLOOD UREA NITROGEN,BUN 16 mg/dL (7.0-18.0); CALCIUM 9.2 mg/dL (8.5-10.1); CHLORIDE,CL 101 mmol/L (98-107); CREATININE 0.8 mg/dL (0.6-1.0); ETHANOL BLOOD MEDICAL <3 mg/dL; GLUCOSE RANDOM 130 mg/dL (74-106); MAGNESIUM 1.6 mg/dL (1.8-2.4); POTASSIUM,K 3.8 mmol/L (3.5-5.1); PROTEIN TOTAL,TP 7.4 g/dL (6.4-8.2); SODIUM,NA 137 mmol/L (136-145)
[2024-10-18 12:05] LABS: ESTIMATED GFR 78 mL/min (>60)
[2024-10-18] MEDS: Acetaminophen 325 MG Tab PO ONE (12:27)
[2024-10-18] MEDS: Sodium Chloride 0.9% 1,000 ML IV ONE (12:28)
[2024-10-18] MEDS: Ondansetron 4 MG/2 ML SDV IVPUSH ONE (12:28)
[2024-10-18] MEDS: Tetracaine HCl/PF 0.5% 4 ML Bottle EYERT ONE (13:10)
[2024-10-18] MEDS: Magnesium Sulfate 2 GM/50 mL 2 GM in Premix Bag 1 BAG IV ONE (13:20)
[2024-10-18 13:57] LABS: APPEARANCE,URINE CLEAR; BILIRUBIN,URINE NEGATIVE (NEGATIVE); COLOR,URINE YELLOW; GLUCOSE,URINE NEGATIVE (NEGATIVE); KETONES,URINE NEGATIVE (NEGATIVE); LEUKOCYTE ESTERASE,URINE NEGATIVE (NEGATIVE); NITRITE,URINE NEGATIVE (NEGATIVE); OCCULT BLOOD,URINE NEGATIVE (NEGATIVE); PH,URINE 5.5 (5.0-8.0); PROTEIN,URINE NEGATIVE (NEGATIVE); UROBILINOGEN,URINE 0.2 EU/dL (<2.0)
[2024-10-18] MEDS: Acetaminophen/HYDROcodone 325-5 MG Tab PO ONE (14:40)
[2024-10-18 17:36] LABS: AMPHETAMINES SCREEN, URINE NEGATIVE (CUTOFF=500); BARBITURATE SCREEN,URINE NEGATIVE (CUTOFF=200); BENZODIAZEPINES SCREEN,URINE PRESUMPTIVE POSITIVE (CUTOFF=150); BUPRENORPHINE SCREEN,URINE NEGATIVE (CUTOFF=10); METHADONE SCREEN, URINE NEGATIVE (CUTOFF=200); METHAMPHETAMINES SCREEN, URINE NEGATIVE (CUTOFF=500); OXYCODONE SCREEN,URINE NEGATIVE (CUT0FF=100); PCP SCREEN,URINE NEGATIVE (CUTOFF=25); THC SCREEN,URINE 20 NG/ML NEGATIVE (CUTOFF=50)
[2024-10-18] MEDS ORDERED: Polyethylene Glycol 3350 Powder 17 GM Packet PO PRN (18:48)
[2024-10-18] MEDS ORDERED: Ondansetron 4 MG/2 ML SDV IVPUSH PRN (18:48)
[2024-10-18] MEDS: Apixaban 5 MG Tab PO SCH (20:30)
[2024-10-18] MEDS: Acetaminophen 325 MG Tab PO SCH (20:30)
[2024-10-19] MEDS: Acetaminophen 325 MG Tab PO SCH (00:04)
[2024-10-19 05:43] LABS: BASOPHILS ABSOLUTE AUTO 0.05 K/uL (0.00-0.20); BASOPHILS PERCENT AUTO 0.5 % (0.0-1.0); EOSINOPHILS ABSOLUTE AUTO 0.08 K/uL (0.00-0.45); EOSINOPHILS PERCENT AUTO 0.7 % (0.0-6.0); HEMATOCRIT 38.2 % (37.0-47.0); HEMOGLOBIN 12.9 g/dL (12.0-16.0); IMMATURE GRAN ABSOLUTE AUTO 0.04 K/uL (0.00-0.05); IMMATURE GRAN PERCENT AUTO 0.4 % (0.0-0.4); LYMPHOCYTES ABSOLUTE AUTO 1.41 K/uL (1.00-4.80); LYMPHOCYTES PERCENT AUTO 12.7 % (24.0-44.0); MEAN CORPUSCULAR HGB CONC 33.8 g/dL (32.0-36.0); MEAN CORPUSCULAR VOLUME 91.8 fL (83.0-99.0); MEAN PLATELET VOLUME 11.5 fL (9.4-12.3); MONOCYTES ABSOLUTE AUTO 0.66 K/uL (0.00-0.80); NEUTROPHILS ABSOLUTE AUTO 8.84 K/uL (1.80-7.70); NEUTROPHILS PERCENT AUTO 79.7 % (41.0-71.0); PLATELET COUNT,PLT 257 K/uL (150-400); RED BLOOD CELL COUNT 4.16 M/uL (4.10-5.30); WHITE BLOOD CELL COUNT,WBC 11.08 K/uL (3.9-11.3)
[2024-10-19 06:08] LABS: CALCIUM 8.9 mg/dL (8.5-10.1); CARBON DIOXIDE,CO2 26.1 mmol/L (21.0-32.0); CREATININE 0.7 mg/dL (0.6-1.0); EST CRCL DRUG DOSING (CG) 51.41 mL/min; MAGNESIUM 1.7 mg/dL (1.8-2.4); POTASSIUM,K 3.4 mmol/L (3.5-5.1)
[2024-10-19] MEDS: Escitalopram 10 MG Tab PO SCH (09:30)
[2024-10-19] MEDS: Metoprolol Succinate 100 MG Tab.ER PO SCH (11:40)
[2024-10-19] MEDS: Acetaminophen/HYDROcodone 325-10 MG Tab PO PRN (12:49)
[2024-10-19] MEDS ORDERED: Hydrochlorothiazide 25 MG Tab PO SCH (20:45)
[2024-10-19] MEDS: hydrALAZINE 25 MG Tab PO SCH (20:50)
[2024-10-19] MEDS: Losartan 50 MG Tab PO SCH (21:32)
[2024-10-20 11:39] VITALS: BP 185/81; PULSE 70
== END 2024-10-20 13:25 | disposition home or self-care (01) ==
LOC: MW.ED 10:36 → MW.MS 17:00
PROVIDERS: ADMIT Family Medicine; ATTEND Family Medicine
DX: M25.519 Pain in unspecified shoulder (principal); R53.1 Weakness; F11.20 Opioid dependence, uncomplicated; I10 Essential (primary) hypertension; E78.00 Pure hypercholesterolemia, unspecified; J44.9 Chronic obstructive pulmonary disease, unspecified; I48.91 Unspecified atrial fibrillation; K21.9 Gastro-esophageal reflux disease without esophagitis; F31.9 Bipolar disorder, unspecified; Z79.01 Long term (current) use of anticoagulants; Z79.899 Other long term (current) drug therapy; Z88.5 Allergy status to narcotic agent; Z88.8 Allergy status to other drugs, medicaments and biological substances
CPT/HCPCS: 36415; 70450; 71045; 73030; 80048; 80053; 80305; 80307; 81003; 83735; 84484; 85025; 85610; 85730; 93005; 97165; A9270; J2405; J3475; J7030; 93010; 99285; J3490

== ENCOUNTER 2024-12-01 19:24 | Emergency (ER) | payer MEDICARE ==
[2024-12-01 19:33] VITALS: BP 130/85; PULSE 87
[2024-12-01 19:34] LABS: BASOPHILS ABSOLUTE AUTO 0.06 K/uL (0.00-0.20); BASOPHILS PERCENT AUTO 0.7 % (0.0-1.0); EOSINOPHILS ABSOLUTE AUTO 0.15 K/uL (0.00-0.45); EOSINOPHILS PERCENT AUTO 1.7 % (0.0-6.0); IMMATURE GRAN ABSOLUTE AUTO 0.03 K/uL (0.00-0.05); IMMATURE GRAN PERCENT AUTO 0.3 % (0.0-0.4); LYMPHOCYTES ABSOLUTE AUTO 3.10 K/uL (1.00-4.80); LYMPHOCYTES PERCENT AUTO 35.6 % (24.0-44.0); MEAN PLATELET VOLUME 11.8 fL (9.4-12.3); MONOCYTES ABSOLUTE AUTO 0.70 K/uL (0.00-0.80); MONOCYTES PERCENT AUTO 8.0 % (0.0-8.0); NEUTROPHILS ABSOLUTE AUTO 4.68 K/uL (1.80-7.70); NEUTROPHILS PERCENT AUTO 53.7 % (41.0-71.0); NRBC ABSOLUTE 0.00 K/uL (0.00-0.02); NRBC PERCENT 0.0 /100WBC (0.0-0.2); PLATELET COUNT,PLT 237 K/uL (150-400); RED BLOOD CELL COUNT 4.34 M/uL (4.10-5.30); WHITE BLOOD CELL COUNT,WBC 8.72 K/uL (3.9-11.3)
[2024-12-01 19:58] LABS: A/G RATIO 1.0 (0.9-1.6); ALANINE AMINOTRANSFERASE,ALT 16.0 IU/L (14-63); ASPARTATE AMNIOTRANSFERASE,AST 23.0 IU/L (15-37); BILIRUBIN TOTAL 0.4 mg/dL (0.2-1.0); BLOOD UREA NITROGEN,BUN 11.0 mg/dL (7.0-18.0); CARBON DIOXIDE,CO2 24.5 mmol/L (21.0-32.0); CHLORIDE,CL 105.0 mmol/L (98-107); CREATININE 0.8 mg/dL (0.6-1.0); EST CRCL DRUG DOSING (CG) 44.99 mL/min; ESTIMATED GFR 78.0 mL/min (>60); GLUCOSE RANDOM 101.0 mg/dL (74-106); POTASSIUM,K 4.0 mmol/L (3.5-5.1); PROTEIN TOTAL,TP 6.9 g/dL (6.4-8.2); SODIUM,NA 140.0 mmol/L (136-145)
[2024-12-01 20:23] LABS: LACTIC ACID 1.0 mmol/L (0.4-2.0)
== END 2024-12-01 20:37 | disposition left against medical advice (07) ==
LOC: MW.ED 19:24
DX: R07.9 Chest pain, unspecified (principal); I10 Essential (primary) hypertension; I48.91 Unspecified atrial fibrillation; E66.9 Obesity, unspecified; J44.9 Chronic obstructive pulmonary disease, unspecified; M19.90 Unspecified osteoarthritis, unspecified site; F17.200 Nicotine dependence, unspecified, uncomplicated; Z95.0 Presence of cardiac pacemaker; Z75.3 Unavailability and inaccessibility of health-care facilities; Z88.5 Allergy status to narcotic agent; Z88.8 Allergy status to other drugs, medicaments and biological substances; Z79.899 Other long term (current) drug therapy; Z79.01 Long term (current) use of anticoagulants; Z90.49 Acquired absence of other specified parts of digestive tract; Z68.30 Body mass index [BMI] 30.0-30.9, adult
CPT/HCPCS: 36415; 80053; 83605; 83690; 83735; 84484; 85025; 93005; 99285; J7030; 99283

== ENCOUNTER 2025-04-04 11:36 | Emergency (ER) | payer MEDICARE ==
[2025-04-04 12:29] LABS: APPEARANCE,URINE SLT CLOUDY; GLUCOSE,URINE NEGATIVE (NEGATIVE); OCCULT BLOOD,URINE NEGATIVE (NEGATIVE)
[2025-04-04 12:34] LABS: BASOPHILS ABSOLUTE AUTO 0.06 K/uL (0.00-0.20); BASOPHILS PERCENT AUTO 0.8 % (0.0-1.0); EOSINOPHILS ABSOLUTE AUTO 0.12 K/uL (0.00-0.45); EOSINOPHILS PERCENT AUTO 1.6 % (0.0-6.0); IMMATURE GRAN ABSOLUTE AUTO 0.02 K/uL (0.00-0.05); IMMATURE GRAN PERCENT AUTO 0.3 % (0.0-0.4); LYMPHOCYTES ABSOLUTE AUTO 2.07 K/uL (1.00-4.80); LYMPHOCYTES PERCENT AUTO 27.5 % (24.0-44.0); MEAN PLATELET VOLUME 11.3 fL (9.4-12.3); MONOCYTES ABSOLUTE AUTO 0.52 K/uL (0.00-0.80); MONOCYTES PERCENT AUTO 6.9 % (0.0-8.0); NEUTROPHILS ABSOLUTE AUTO 4.74 K/uL (1.80-7.70); NEUTROPHILS PERCENT AUTO 62.9 % (41.0-71.0); NRBC ABSOLUTE 0.00 K/uL (0.00-0.02); NRBC PERCENT 0.0 /100WBC (0.0-0.2); PLATELET COUNT,PLT 259 K/uL (150-400); RED BLOOD CELL COUNT 4.55 M/uL (4.10-5.30); WHITE BLOOD CELL COUNT,WBC 7.53 K/uL (3.9-11.3)
[2025-04-04 12:38] LABS: AMPHETAMINES SCREEN, URINE NEGATIVE (CUTOFF=500); BUPRENORPHINE SCREEN,URINE NEGATIVE (CUTOFF=10); METHADONE SCREEN, URINE NEGATIVE (CUTOFF=200); METHAMPHETAMINES SCREEN, URINE NEGATIVE (CUTOFF=500); OXYCODONE SCREEN,URINE NEGATIVE (CUT0FF=100); PCP SCREEN,URINE NEGATIVE (CUTOFF=25); THC SCREEN,URINE 20 NG/ML NEGATIVE (CUTOFF=50)
[2025-04-04 12:43] LABS: EPITHELIAL CELLS,URINE FEW (NONE-FEW)
[2025-04-04 13:08] LABS: BLOOD UREA NITROGEN,BUN 13 mg/dL (7.0-18.0); CARBON DIOXIDE,CO2 30.1 mmol/L (21.0-32.0); CHLORIDE,CL 105 mmol/L (98-107); CREATININE 1.1 mg/dL (0.6-1.0); EST CRCL DRUG DOSING (CG) 42.64 mL/min; ETHANOL BLOOD MEDICAL <3 mg/dL; GLUCOSE RANDOM 103 mg/dL (74-106); POTASSIUM,K 3.5 mmol/L (3.5-5.1); SODIUM,NA 143 mmol/L (136-145)
[2025-04-04 13:09] LABS: ESTIMATED GFR 53 mL/min (>60)
[2025-04-04] MEDS: cefTRIAXone 1 GM in Water For Injection, Sterile 10 ML IVPUSH ONE (13:19)
[2025-04-04] MEDS: Sodium Chloride 0.9% 10 ML Syringe FLUSH PRN (13:19)
[2025-04-04] MEDS: Sodium Chloride 0.9% 2.5 ML Syringe FLUSH PRN (13:19)
[2025-04-04 15:35] VITALS: BP 166/100; PULSE 61
== END 2025-04-04 15:00 | disposition home or self-care (01) ==
LOC: MW.ED 11:36
DX: J06.9 Acute upper respiratory infection, unspecified (principal); N30.00 Acute cystitis without hematuria; I10 Essential (primary) hypertension; I48.91 Unspecified atrial fibrillation; E66.9 Obesity, unspecified; J44.9 Chronic obstructive pulmonary disease, unspecified; K21.9 Gastro-esophageal reflux disease without esophagitis; M19.90 Unspecified osteoarthritis, unspecified site; Z90.49 Acquired absence of other specified parts of digestive tract; Z79.899 Other long term (current) drug therapy; Z79.01 Long term (current) use of anticoagulants; Z88.5 Allergy status to narcotic agent; Z88.8 Allergy status to other drugs, medicaments and biological substances; Z68.25 Body mass index [BMI] 25.0-25.9, adult
CPT/HCPCS: 36415; 71045; 80048; 80305; 80307; 81001; 84484; 85025; 86308; 87086; 87428; 87651; 93005; 96374; 99285; J0696; 93010; 99284